=== PATIENT | male | born 1945 | race Caucasian/White ===

== ENCOUNTER 2020-08-21 09:36 | Outpatient (REF) | payer MEDICARE, SELFPAY ==
[2020-08-21 12:08] LABS: Prostate Specific Antigen 0.14 ng/mL (<0.05-4.0)
== END 2020-08-21 09:37 | disposition home or self-care (01) ==
LOC: HO.HMGCLDS 09:36
PROVIDERS: PCP Internal Medicine; Visit Provider Urology
DX: E29.1 Testicular hypofunction (principal); Z85.46 Personal history of malignant neoplasm of prostate; Z12.5 Encounter for screening for malignant neoplasm of prostate
CPT/HCPCS: 36415; 84153

== ENCOUNTER → 2020-08-28 10:27 | Outpatient (BNVA) | payer MEDICARE, SELFPAY | PROVIDERS: PCP Internal Medicine; Referring Provider Internal Medicine; Visit Provider Internal Medicine Endocrinology, Diabetes & Metabolism | DX: Z76.89 Persons encountering health services in other specified circumstances (principal) | CPT/HCPCS: Q3014 ==

== ENCOUNTER 2020-10-16 10:31 | Outpatient (REF) | payer MEDICARE, SELFPAY ==
[2020-10-16 13:55] LABS: MANUAL DIFF FLAG NO
[2020-10-16 13:59] LABS: Basophils Percent Auto 0.4 % (0-2); Eosinophils Absolute Auto 0.1 X10*3/uL (0.0-0.4); Eosinophils Percent Auto 2.7 % (0-4); Hematocrit 46.3 % (42-52); Hemoglobin 15.4 g/dl (14.0-18.0); Imm Gran Abs Auto 0.03 X10*3/uL (0.00-0.03); Imm Gran Pct Auto 0.6 % (0.0-0.4); Lymphocytes Percent Auto 19.8 % (20-40); Mean Corpuscular HGB Conc 33.3 g/dl (31.0-36.0); Mean Corpuscular Hemoglobin 29.6 pg (27.0-33.0); Mean Corpuscular Volume 88.9 fL (80-98); Mean Platelet Volume 10.1 fL (9.4-12.4); Monocytes Absolute Auto 0.5 X10*3/uL (0.1-1.2); Monocytes Percent Auto 8.8 % (2-11); Neutrophils Absolute Auto 3.5 X10*3/uL (2.0-8.3); Neutrophils Percent Auto 67.7 % (45-73); Platelet Count 194 X10*3/uL (160-400); Red Blood Count 5.21 X10*6/uL (4.60-5.80); Red Cell Distribution Width 12.6 % (11.0-16.0); White Blood Count 5.1 X10*3/uL (4.8-10.8)
[2020-10-16 14:25] LABS: Alanine Aminotransferase 35 U/L (0-40); Albumin Level 4.5 g/dL (3.5-5.0); Alkaline Phosphatase 56 U/L (39-117); Anion Gap 12 (12-20); Aspartate Amino Transferase 28 U/L (5-37); Blood Urea Nitrogen 14 mg/dL (9-16); Carbon Dioxide 25 mmol/L (22-29); Chloride 106 mmol/L (96-108); Cholesterol 186 mg/dL; Estimated Glomerular Filt Rate > 60; Glucose Fasting 103 mg/dL (60-99); HDL Cholesterol 44 mg/dL; LDL Cholesterol Calculated 125 mg/dl; Potassium 4.4 mmol/L (3.3-5.1); Sodium 139 mmol/L (135-145); Triglycerides 87 mg/dL
[2020-10-16 14:50] LABS: Vitamin D 25-OH Total 59.1 ng/mL (>30)
[2020-10-17 05:26] LABS: Sex Hormone Binding Globulin 23 nmol/L (22-77)
[2020-10-21 12:06] LABS: Testosterone, Free 102.9 pg/mL (30.0-135.0); Testosterone, Total 550 ng/dL (250-1100)
[2020-10-21 13:17] LABS: Testosterone-Albumin 4.4 g/dL (3.6-5.1); Testosterone-Bioavailable 183.4 ng/dL (15.0-150.0); Testosterone-Free 91.1 pg/mL (6.0-73.0); Testosterone-SHBG 22 nmol/L (22-77); Testosterone-Total 488 ng/dL (250-1100)
== END 2020-10-16 10:32 | disposition home or self-care (01) ==
LOC: HO.HMGCLDS 10:31
PROVIDERS: PCP Internal Medicine; Visit Provider Internal Medicine Endocrinology, Diabetes & Metabolism
DX: Z00.00 Encounter for general adult medical examination without abnormal findings (principal); E29.1 Testicular hypofunction; M81.0 Age-related osteoporosis without current pathological fracture
CPT/HCPCS: 36415; 80053; 80061; 82306; 84270; 84402; 84403; 84443; 85025

== ENCOUNTER 2020-10-17 10:42 | Outpatient (REF) | payer MEDICARE, SELFPAY ==
[2020-10-23 15:32] LABS: N-Telopeptide 26 (see note); NTXCreaRU 143 mg/dL (20-320)
== END 2020-10-17 10:43 | disposition home or self-care (01) ==
LOC: HO.HMGCLNP 10:42
PROVIDERS: Visit Provider Internal Medicine Endocrinology, Diabetes & Metabolism
DX: M81.0 Age-related osteoporosis without current pathological fracture (principal)
CPT/HCPCS: 82523

== ENCOUNTER → 2020-11-02 09:59 | Outpatient (BNVA) | payer MEDICARE, SELFPAY | PROVIDERS: PCP Internal Medicine; Visit Provider Urology | DX: Z13.89 Encounter for screening for other disorder (principal) | CPT/HCPCS: Q3014 ==

== ENCOUNTER → 2020-11-07 11:04 | Outpatient (BNVA) | payer MEDICARE, SELFPAY | PROVIDERS: PCP Internal Medicine; Visit Provider Internal Medicine | DX: I71.2 Thoracic aortic aneurysm, without rupture (principal); I10 Essential (primary) hypertension | CPT/HCPCS: 93005; 99212 ==

== ENCOUNTER → 2020-12-20 13:56 | Outpatient (REF) | payer MEDICARE, SELFPAY ==
--- NOTE | 2020-12-20 14:02 | CA_ITS ---
Transthoracic Echocardiogram Patient (Last, First, Middle): Ermias Birmingham J Gender: Male Date of : 1945 Age: 75 Procedure Date: 12/20/2020 Procedure Type: Transthoracic Echocardiogram Location: OP Height: 175.26 cm Weight: 88.91 kg BSA: 2.05 m2 Heart Rate: bpm BP: 134 / 78 mmHg [employer]: MAE Referring MD: Giancarlo Leigh MD Symptoms: I71.2 - Thoracic aortic aneurysm, without rupture Study Quality: Good ECG Rhythm: Sinus Conclusions: - The left ventricular systolic function is normal. The visually estimated ejection fraction is between 65-70%. - No obvious valvular pathology seen on this study. - There is mild dilatation of the ascending aorta measuring 4.10 cm. Findings Left Ventricle Normal left ventricular cavity size. There is mildly increased left ventricular wall thickness. The left ventricular systolic function is normal. The visually estimated ejection fraction is between 65-70%. There is no evidence of regional wall motion abnormalities. Evidence suggests grade I (mild) diastolic dysfunction. Right Ventricle Normal right ventricular cavity size and systolic function. Atria The left atrium is normal in size. The right atrium is normal in size. Aortic Valve There is a normal trileaflet aortic valve. There is no aortic valve stenosis. There is no aortic valve regurgitation. Mitral Valve The mitral valve appears normal. There is trace mitral valve regurgitation. There is no mitral valve stenosis. Pulmonic Valve The pulmonic valve was not well visualized. Tricuspid Valve Normal tricuspid valve structure. There is trace tricuspid valve regurgitation. The pulmonary artery systolic pressure is normal. Great Vessels There is mild dilatation of the ascending aorta measuring 4.10 cm. Arch measures 3.4cm. Venous The inferior vena cava is normal in size and collapses greater than 50% with inspiration. Pericardium/Pleural There is no evidence of pericardial effusion. Prior Study Comparison No significant change compared to prior study dated: 10/05/2019. Recommendations, Care & Conclusions No obvious valvular pathology seen on this study. Measurements 2D Linear Measurements IVSd: 1.11 0.6-0.9/0.6-1.0 cm LVIDd: 3.94 3.9-5.3/4.2-5.9 cm LVIDd Index: 1.92 2.4-3.2/2.2-3.1 cm/m2 LVIDs: 2.58 2.0-3.6 cm LVPWd: 1.07 0.7-1.1 cm Ao Root: 4.10 2.1-3.5 cm LA Diam: 3.60 2.7-3.8/3.0-4.0 cm LAIDs Index: 1.76 1.5-2.3 cm/m2 LV Mass: 174.78 67-162/88-224 g LV Mass Index: 85.26 43-95/49-115 g/m2 LVOT Diam: 2.30 3.0+(-)1.3 cm 2D Systolic Function EF 4C: 55.60 >55% EF 2C: 73.00 >55% EF BiP: 62.50 >55% Mitral Valve MV Pk E: 0.73 MV PK A: 0.88 MV Decel Time: 342.00 E/A: 0.80 E'Lateral: 7.93 E'Medial: 6.19 E/E' Med: 11.80 E/E' Lat: 9.20 PHT: 100.00 MVA PHT: 2.20 Decel [place]: 2.13 Aortic Valve AoV Pk Td: 1.71 AoV Mn Td: 1.12 AoV VTI: 0.29 AoV Pk Grad: 12.00 Aov Mn Grad: 6.00 ORALIA Cont.VTI: 4.05 LVOT LVOT Pk Td: 1.72 LVOT Mn Td: 1.02 LVOT VTI: 0.29 LVOT Pk Grad: 12.00 LVOT Mn Grad: 5.00 LVOT Diam: 2.30 LVOT Area: 4.15 Diastolic Function MV Pk E: 0.73 MV Pk A: 0.88 E/A: 0.80 E'Medial: 6.19 E/E' Med: 11.80 E' Laterial: 7.93 E/E' Lat: 9.20 Tricuspid Valve TR Pk Td: 1.79 TR Pk Grad: 13.00 RA Press: 3.00 RVSP: 16.00 Great Vessels Aorta Ao Root-2D: 4.10 2.0-3.7 cm Ao Asc: 4.10 2.1-3.4 cm Ao Arch: 3.40 Updated in Other Vendor System with Status of Final Giancarlo Leigh MD electronically signed on 12/22/2020 2:49:03 PM with status of Final
== END ==
LOC: HO.CARD 13:56
PROVIDERS: PCP Internal Medicine; Visit Provider Internal Medicine
DX: I71.2 Thoracic aortic aneurysm, without rupture (principal)
CPT/HCPCS: 93306

== ENCOUNTER → 2021-02-06 10:23 | Outpatient (BNVA) | payer MEDICARE, SELFPAY | PROVIDERS: PCP Internal Medicine; Referring Provider Internal Medicine; Visit Provider Internal Medicine | DX: I71.2 Thoracic aortic aneurysm, without rupture (principal); I10 Essential (primary) hypertension | CPT/HCPCS: 99212 ==

== ENCOUNTER 2021-02-26 11:32 | Outpatient (REF) | payer MEDICARE, SELFPAY ==
[2021-02-26 13:22] LABS: Hematocrit 43.3 % (42-52); Hemoglobin 14.2 g/dl (14.0-18.0)
[2021-02-26 14:14] LABS: Vitamin D 25-OH Total 41.9 ng/mL (>30)
[2021-02-28 07:57] LABS: Sex Hormone Binding Globulin 29 nmol/L (22-77)
[2021-03-03 16:21] LABS: Testosterone, Free 69.6 pg/mL (30.0-135.0); Testosterone, Total 483 ng/dL (250-1100)
[2021-03-04 14:11] LABS: Testosterone-Albumin 4.1 g/dL (3.6-5.1); Testosterone-Bioavailable 134.8 ng/dL (15.0-150.0); Testosterone-Free 71.6 pg/mL (6.0-73.0); Testosterone-SHBG 32 nmol/L (22-77); Testosterone-Total 502 ng/dL (250-1100)
== END 2021-02-26 11:33 | disposition home or self-care (01) ==
LOC: HO.LAB 11:32
PROVIDERS: PCP Physician Assistant; Visit Provider Internal Medicine Endocrinology, Diabetes & Metabolism
DX: M81.0 Age-related osteoporosis without current pathological fracture (principal); E29.1 Testicular hypofunction; Z79.899 Other long term (current) drug therapy
CPT/HCPCS: 36415; 82306; 84153; 84270; 84402; 84403; 85014; 85018; 99212

== ENCOUNTER 2021-04-26 08:37 | Outpatient (REF) | payer MEDICARE, SELFPAY ==
[2021-04-26 11:35] LABS: Hematocrit 42.8 % (42-52); Hemoglobin 14.3 g/dl (14.0-18.0); Mean Corpuscular HGB Conc 33.4 g/dl (31.0-36.0); Mean Corpuscular Hemoglobin 30.2 pg (27.0-33.0); Mean Corpuscular Volume 90.3 fL (80-98); Platelet Count 183 X10*3/uL (160-400); Red Blood Count 4.74 X10*6/uL (4.60-5.80); White Blood Count 4.1 X10*3/uL (4.8-10.8)
[2021-04-26 12:13] LABS: Prostate Specific Antigen 0.09 ng/mL (<0.05-4.0)
[2021-05-01 13:52] LABS: Testosterone, Total 357 ng/dL (250-1100)
== END 2021-04-26 08:38 | disposition home or self-care (01) ==
LOC: HO.HMGCLDS 08:37
PROVIDERS: PCP Internal Medicine; Visit Provider Urology
DX: Z12.5 Encounter for screening for malignant neoplasm of prostate (principal); R39.15 Urgency of urination; C61 Malignant neoplasm of prostate; E29.1 Testicular hypofunction
CPT/HCPCS: 36415; 84153; 84403; 85027

== ENCOUNTER → 2021-05-08 08:45 | Outpatient (BNVA) | payer MEDICARE, SELFPAY | PROVIDERS: PCP Internal Medicine; Visit Provider Urology | DX: N52.01 Erectile dysfunction due to arterial insufficiency (principal); E29.1 Testicular hypofunction; C61 Malignant neoplasm of prostate | CPT/HCPCS: Q3014 ==

== ENCOUNTER → 2021-07-24 10:43 | Outpatient (BNVA) | payer MEDICARE, SELFPAY | PROVIDERS: PCP Internal Medicine; Referring Provider Internal Medicine; Visit Provider Internal Medicine | DX: I71.2 Thoracic aortic aneurysm, without rupture (principal); I10 Essential (primary) hypertension | CPT/HCPCS: 99212 ==

== ENCOUNTER → 2021-08-07 09:58 | Outpatient (BNVA) | payer MEDICARE, SELFPAY | PROVIDERS: PCP Internal Medicine; Visit Provider Urology | DX: N52.35 Erectile dysfunction following radiation therapy (principal) | CPT/HCPCS: 99212 ==

== ENCOUNTER → 2021-09-06 10:52 | Outpatient (BNVA) | payer MEDICARE, SELFPAY | PROVIDERS: Visit Provider Urology | DX: N52.35 Erectile dysfunction following radiation therapy (principal); C61 Malignant neoplasm of prostate; E29.1 Testicular hypofunction | CPT/HCPCS: 99212 ==

== ENCOUNTER 2021-09-16 10:34 | Outpatient (REF) | payer MEDICARE, SELFPAY ==
--- NOTE | ~2021-09-16 | XR_ITS ---
EXAMINATION: XR CHEST XR THORACIC SPINE CLINICAL INFORMATION: Pain posterior chest and thoracic spine. COMPARISON: Chest radiographs 05/30/2016, 11/29/2015; CTA chest 09/08/2017 TECHNIQUE: The chest is imaged in frontal and lateral views. The thoracic spine is imaged in 2 frontal views, lateral view, and a lateral view of the cervical thoracic junction for a total of 4 views. FINDINGS: Thoracic spine: There are 12 rib-bearing thoracic vertebrae of normal attenuation. There is no bony destructive process, spondylolisthesis, or paraspinal soft tissue swelling. Some mild degenerative changes are again present mid thoracic spine. No erosive change. There is mild loss of height T8 slightly borderline increased since CT chest 09/08/2017. Chest: The lungs are clear. There is no pneumothorax, pleural reaction, infiltrate, or groundglass opacity. The costophrenic sulci are clear. The heart is normal in size. The hilar and mediastinal contours are stable. There is tortuous descending thoracic aorta are again seen. Remainder of the bony structures are unremarkable. XR/XR thoracic spine 2V IMPRESSION: Thoracic spine: -Loss of height vertebral body T8 borderline increased since CT chest 09/08/2017. -No destructive process or paraspinal soft tissue swelling. Chest: -No acute intrathoracic disease.
--- NOTE | ~2021-09-16 | XR_ITS ---
EXAMINATION: XR CHEST XR THORACIC SPINE CLINICAL INFORMATION: Pain posterior chest and thoracic spine. COMPARISON: Chest radiographs 05/30/2016, 11/29/2015; CTA chest 09/08/2017 TECHNIQUE: The chest is imaged in frontal and lateral views. The thoracic spine is imaged in 2 frontal views, lateral view, and a lateral view of the cervical thoracic junction for a total of 4 views. FINDINGS: Thoracic spine: There are 12 rib-bearing thoracic vertebrae of normal attenuation. There is no bony destructive process, spondylolisthesis, or paraspinal soft tissue swelling. Some mild degenerative changes are again present mid thoracic spine. No erosive change. There is mild loss of height T8 slightly borderline increased since CT chest 09/08/2017. Chest: The lungs are clear. There is no pneumothorax, pleural reaction, infiltrate, or groundglass opacity. The costophrenic sulci are clear. The heart is normal in size. The hilar and mediastinal contours are stable. There is tortuous descending thoracic aorta are again seen. Remainder of the bony structures are unremarkable. XR/XR chest 2V IMPRESSION: Thoracic spine: -Loss of height vertebral body T8 borderline increased since CT chest 09/08/2017. -No destructive process or paraspinal soft tissue swelling. Chest: -No acute intrathoracic disease.
== END 2021-09-16 10:35 | disposition home or self-care (01) ==
LOC: HO.XRAY 10:34
PROVIDERS: PCP Nurse Practitioner Family; Visit Provider Nurse Practitioner Family
DX: M54.6 Pain in thoracic spine (principal); R07.81 Pleurodynia
CPT/HCPCS: 71046; 72070

== ENCOUNTER 2021-09-27 10:58 | Outpatient (REF) | payer MEDICARE, SELFPAY ==
[2021-09-27 11:38] LABS: MANUAL DIFF FLAG NO
[2021-09-27 12:05] LABS: Basophils Percent Auto 0.3 % (0-2); Eosinophils Absolute Auto 0.1 X10*3/uL (0.0-0.4); Eosinophils Percent Auto 1.5 % (0-4); Hematocrit 45.1 % (42.0-52.0); Hemoglobin 14.9 g/dl (14.0-18.0); Imm Gran Abs Auto 0.03 X10*3/uL (0.00-0.03); Imm Gran Pct Auto 0.4 % (0.0-0.4); Lymphocytes Absolute Auto 1.1 X10*3/uL (1.2-4.9); Lymphocytes Percent Auto 14.9 % (20-40); Mean Corpuscular Hemoglobin 29.4 pg (27.0-33.0); Mean Corpuscular Volume 89.1 fL (80.0-98.0); Monocytes Absolute Auto 0.6 X10*3/uL (0.1-1.2); Monocytes Percent Auto 7.6 % (2-11); Neutrophils Absolute Auto 5.5 x10*3/uL (2.0-8.3); Neutrophils Percent Auto 75.3 % (45-73); Platelet Count 178 X10*3/uL (160-400); Red Blood Count 5.06 X10*6/uL (4.60-5.80); Red Cell Distribution Width 12.7 % (11.0-16.0); White Blood Count 7.3 X10*3/uL (4.8-10.8)
[2021-09-27 12:24] LABS: Estimated Average Glucose 120 mg/dL; Hemoglobin A1c % 5.8 %
[2021-09-27 12:36] LABS: Alanine Aminotransferase 26 U/L (0-40); Albumin Level 4.1 g/dL (3.5-5.0); Alkaline Phosphatase 62 U/L (39-117); Anion Gap 9 (12-20); Aspartate Amino Transferase 20 U/L (5-37); Bilirubin Total 0.9 mg/dL (0.0-1.0); Blood Urea Nitrogen 15 mg/dL (9-16); Calcium 9.4 mg/dL (8.4-10.2); Carbon Dioxide 26 mmol/L (22-29); Chloride 107 mmol/L (96-108); Cholesterol 183 mg/dL; Estimated Glomerular Filt Rate > 60; Glucose Fasting 103 mg/dL (60-99); HDL Cholesterol 50 mg/dL; LDL Cholesterol Calculated 118 mg/dl; Potassium 4.2 mmol/L (3.3-5.1); Sodium 138 mmol/L (135-145); Total Protein 6.6 g/dL (6.5-8.0); Triglycerides 78 mg/dL
[2021-09-27 12:58] LABS: Vitamin D 25-OH Total 58.3 ng/mL (>30)
[2021-10-02 17:45] LABS: N-Telopeptide 27 (see note); NTXCreaRU 172 mg/dL (20-320)
== END 2021-09-27 10:59 | disposition home or self-care (01) ==
LOC: HO.LAB 10:58
PROVIDERS: Internal Medicine; Internal Medicine Endocrinology, Diabetes & Metabolism; Absent Provider Urology; PCP Nurse Practitioner Family; Visit Provider Nurse Practitioner Family
DX: E29.1 Testicular hypofunction (principal); M81.0 Age-related osteoporosis without current pathological fracture; I10 Essential (primary) hypertension; E78.5 Hyperlipidemia, unspecified; E78.00 Pure hypercholesterolemia, unspecified; E11.9 Type 2 diabetes mellitus without complications
CPT/HCPCS: 36415; 80053; 80061; 82306; 82523; 83036; 85025

== ENCOUNTER 2021-12-27 09:22 | Outpatient (REF) | payer MEDICARE, SELFPAY ==
--- NOTE | ~2021-12-27 | US_ITS ---
EXAMINATION: US ABDOMEN COMPLETE CLINICAL INFORMATION: Unspecified abdominal pain. COMPARISON: MRI abdomen 11/04/2016. Ultrasound abdomen 05/30/2016. CT abdomen and pelvis 11/29/2015. Renal ultrasound 07/18/2013. TECHNIQUE: Real-time imaging of the abdominal viscera. FINDINGS: PANCREAS: Normal. ABDOMINAL AORTA: Atherosclerotic changes of the aorta which is nonaneurysmal. INFERIOR VENA CAVA: Visualized portions are normal. LIVER: The liver is normal in size. The liver contour is normal. There is diffuse increased liver parenchymal echogenicity, consistent with hepatic steatosis. No focal hepatic lesion. There is no intrahepatic biliary duct dilatation seen. GALLBLADDER: The gallbladder is physiologically distended without evidence of stones, sludge, wall thickening or pericholecystic fluid. COMMON BILE DUCT: Normal in caliber measuring 0.2 cm in diameter. RIGHT KIDNEY: There are 2 simple anechoic cysts, one at the the mid to upper pole measures 1.1 x 1.1 x 1.1 cm, the other is exophytic and measures 3.1 x 3 x 3 cm. No hydronephrosis or renal calculi. The kidney measures 13.2 cm in maximum dimension. LEFT KIDNEY: Normal. No hydronephrosis. No renal calculi or focal parenchymal lesions. The kidney measures 12.5 cm in maximum dimension. SPLEEN: Normal. The spleen measures 9.4 cm in maximum dimension. FREE FLUID: None. US/US abdomen complete IMPRESSION: Echogenic liver parenchyma compatible with steatosis. Simple right renal cysts.
== END 2021-12-27 09:23 | disposition home or self-care (01) ==
LOC: HO.HMGCX 09:22
PROVIDERS: Visit Provider Nurse Practitioner Family
DX: R10.9 Unspecified abdominal pain (principal); M54.6 Pain in thoracic spine
CPT/HCPCS: 76700

== ENCOUNTER → 2022-01-02 13:45 | Outpatient (BNVA) | payer MEDICARE, SELFPAY | PROVIDERS: PCP Nurse Practitioner Family; Visit Provider Internal Medicine Endocrinology, Diabetes & Metabolism | DX: E29.1 Testicular hypofunction (principal); M81.0 Age-related osteoporosis without current pathological fracture | CPT/HCPCS: 99212 ==

== ENCOUNTER 2022-01-03 11:40 | Day surgery (SDC) | payer MEDICARE, SELFPAY ==
[2021-12-30 14:00] VITALS: BMI 29.7
--- NOTE | 2022-01-01 13:07 | P.CONAN_ITS ---
Documented by User: Marline Garcia NP 01/01/22 13:11 HPI - Anesthesia Eval Consult details Narrative: 76yo M for Colonoscopy PMF Active Problems Active Problems: All Active Problems (Updated 12/31/21 @ 14:00 by JACKELYN SrP-C) Fatty liver (Acute) Low back pain with right-sided sciatica (Acute) Urinary urgency (Acute) Erectile dysfunction due to arterial insufficiency (Acute) Erectile dysfunction due to and not concurrent with radiation therapy (Acute) Encounter to establish care (Acute) Borderline glaucoma (Acute) Thoracic back pain (Acute) Rib pain (Acute) Abdominal pain (Acute) Generalized abdominal discomfort (Acute) Hyperlipidemia (Acute) Fracture, thoracic vertebra, compression (Acute) Lumbar degenerative disc disease (Acute) Essential hypertension (Acute) Ascending aortic aneurysm (Acute) Prostate CA (Acute) Annual physical exam (Acute) Normal colonoscopy (Acute) Hypogonadism male (Acute) Osteoporosis (Acute) Past Medical History Medical History Allergic rhinitis Annual physical exam Ascending aortic aneurysm BPH (benign prostatic hyperplasia) Essential hypertension Fracture, thoracic vertebra, compression Hearing problem HTN (hypertension) Hyperlipidemia Hypogonadism male Insomnia Lumbar degenerative disc disease Normal colonoscopy Osteoporosis Polycythemia Prostate CA Family History Family History Father Alzheimer disease Colon cancer Colon polyps Mother No problems noted. Other Mental health disorder Surgical History Surgical History History of colon resection History of esophagogastroduodenoscopy (EGD) History of repair of hiatal hernia Hx of appendectomy Hx of colonoscopy Hx of cystoscopy Hx of hernia repair Hx of nasal septoplasty Hx of transurethral resection of prostate Social History Social History Housing: House Alcohol intake: current Alcohol intake frequency: holidays/special occasions only Patient Tobacco Use Status: Former Tobacco user Quit Date: 30 years ago e-Cigarette/Vaping Use: Never Used Second Hand Smoke Exposure: No Are you DNR?: No Advance Directives: No Advance Directives Information Provided: No service: Yes Current occupational status: employed and retired Cognitive needs: No Hearing needs: No Vision needs: No Meds Allergies Allergy/AdvReac Type Severity Reaction Status Date / Time amoxicillin [From Augmentin] AdvReac Severe SEVERE Verified 01/02/22 13:54 DIARRHEA clavulanic acid AdvReac Severe SEVERE Verified 01/02/22 13:54 [From Augmentin] DIARRHEA erythromycin base AdvReac Intermediate GI UPSET Verified 01/02/22 13:54 [ERYTHROMYCIN BASE] Sulfa (Sulfonamide AdvReac Intermediate MOUTH Verified 01/02/22 13:54 Antibiotics) SORES, RASH Home Medications Medication Instructions Recorded Confirmed Last Taken Type multivitamin 1 tab PO DAILY 08/28/20 01/03/22 Unknown History simvastatin 20 mg tablet 20 mg PO BEDTIME 08/28/20 01/03/22 01/03/22 History 0000 zolpidem 5 mg tablet (Ambien) 10 mg PO BEDTIME PRN tab 08/28/20 01/03/22 Unknown History Exam Exam Date and Time: January 01, 2022 1307 Height,Weight and Vital Signs: Height 5 ft 9.25 in Weight 92.079 kg Pertinent Lab Results Pertinent Lab Results: Laboratory Tests 09/27/21 11:35 WBC 7.3 Hgb 14.9 Hct 45.1 Plt Count 178 Laboratory Tests 09/27/21 11:35 Sodium 138 Potassium 4.2 Chloride 107 Carbon Dioxide 26 BUN 15 Creatinine 0.74 Narrative Narrative: EKG 10/2020 sinus rhythm at 74/Min; no significant ST-T changes and otherwise unremarkable ECHO 12/2020 Conclusions: - The left ventricular systolic function is normal.? The visually estimated ejection fraction is between 65-70%. ? - No obvious valvular pathology seen on this study.? - There is mild dilatation of the ascending aorta measuring 4.10 cm.? Assessment and Plan Assessment Anesthesia Assessment: Chart Reviewed Documented by User: Kylie Mason MD 01/03/22 13:22 PMFSH Active Problems Active Problems: All Active Problems (Updated 12/31/21 @ 14:00 by CORNELIO Sr-C) Fatty liver (Acute) Low back pain with right-sided sciatica (Acute) Urinary urgency (Acute) Erectile dysfunction due to arterial insufficiency (Acute) Erectile dysfunction due to and not concurrent with radiation therapy (Acute) Encounter to establish care (Acute) Borderline glaucoma (Acute) Thoracic back pain (Acute) Rib pain (Acute) Abdominal pain (Acute) Generalized abdominal discomfort (Acute) Hyperlipidemia (Acute) Fracture, thoracic vertebra, compression (Acute) Lumbar degenerative disc disease (Acute) Essential hypertension (Acute) Ascending aortic aneurysm (Acute). Stable at 4.1cm at last cardiology visit. next visit in 6 months Prostate CA (Acute) Annual physical exam (Acute) Normal colonoscopy (Acute) Hypogonadism male (Acute) Osteoporosis (Acute) Past Medical History Medical History Allergic rhinitis Annual physical exam Ascending aortic aneurysm BPH (benign prostatic hyperplasia) Essential hypertension Fracture, thoracic vertebra, compression Hearing problem HTN (hypertension) Hyperlipidemia Hypogonadism male Insomnia Lumbar degenerative disc disease Normal colonoscopy Osteoporosis Polycythemia Prostate CA Family History Family History Father Alzheimer disease Colon cancer Colon polyps Mother No problems noted. Other Mental health disorder Family history of problems with anesthesia: No Surgical History Surgical History History of colon resection History of esophagogastroduodenoscopy (EGD) History of repair of hiatal hernia Hx of appendectomy Hx of colonoscopy Hx of cystoscopy Hx of hernia repair Hx of nasal septoplasty Hx of transurethral resection of prostate History of Problems with Anesthesia: No Social History Social History Housing: House Alcohol intake: current Alcohol intake frequency: holidays/special occasions only Patient Tobacco Use Status: Former Tobacco user Quit Date: 30 years ago e-Cigarette/Vaping Use: Never Used Second Hand Smoke Exposure: No Are you DNR?: No Advance Directives: No Advance Directives Information Provided: No service: Yes Current occupational status: employed and retired Cognitive needs: No Hearing needs: No Vision needs: No Meds Allergies Allergy/AdvReac Type Severity Reaction Status Date / Time amoxicillin [From Augmentin] AdvReac Severe SEVERE Verified 01/02/22 13:54 DIARRHEA clavulanic acid AdvReac Severe SEVERE Verified 01/02/22 13:54 [From Augmentin] DIARRHEA erythromycin base AdvReac Intermediate GI UPSET Verified 01/02/22 13:54 [ERYTHROMYCIN BASE] Sulfa (Sulfonamide AdvReac Intermediate MOUTH Verified 01/02/22 13:54 Antibiotics) SORES, RASH Home Medications Medication Instructions Recorded Confirmed Last Taken Type multivitamin 1 tab PO DAILY 08/28/20 01/03/22 Unknown History simvastatin 20 mg tablet 20 mg PO BEDTIME 08/28/20 01/03/22 01/03/22 History 0000 zolpidem 5 mg tablet (Ambien) 10 mg PO BEDTIME PRN tab 08/28/20 01/03/22 Unknown History Exam Height,Weight and Vital Signs: Height 5 ft 9.25 in Weight 92.079 kg Vital Signs Temp Pulse Resp BP Pulse Ox 01/03/22 12:37 97.8 F 68 18 151/85 H 95 Airway Mallampati Class: III TM Dist: >3cm Neck ROM: Full Loose/Missing/Broken Teeth: No Heart: RRR Lungs: CTAB Assessment and Plan Assessment Anesthesia Assessment: Anesthesia Plan Discussed Final Anesthetic Review Family History of Problems with Anesthesia: No History of Problems with Anesthesia: No NPO: Yes ASA Class: III Final Preanesthetic Review: No Changes in Pt Med Stat, Meds/Allgs Chart Revie thu, Consent Obtained/Reviewed and Anes Risks/Benef Reviewed Patient Risk: Intermediate Procedure Risk: Low Assessment/Block/Sedation in SS: Assess/Block/Sedation-SS Anesthetic Plan Anesthetic Plan: MAC: Disposition: Standard PACU
[2022-01-03 12:29] VITALS: BMI 29.0
[2022-01-03 12:37] VITALS: BP 151/85; PULSE 68; RESP 18; TEMP 36.6; O2SAT 95
[2022-01-03] MEDS: Lactated Ringers 1,000 ML 100 ML IVCONT (13:01)
[2022-01-03 14:53] VITALS: BP 90/57; PULSE 66; RESP 16; TEMP 37.3; O2SAT 96
--- NOTE | 2022-01-03 15:06 | PM.OP ---
Brief Operative Note Date of Service: 01/03/22 Pre-op diagnosis: Screening Post-op diagnosis: other (Diverticulosis) Procedure: Colonoscopy to the cecum Surgeon: Renato Joseph Anesthesia: MAC Was an Art History Professor used for this Procedure?: No Estimated blood loss (mL): 0 Pathology: none sent Condition: stable Disposition: PACU
[2022-01-03 15:16] VITALS: BP 129/72; PULSE 64; RESP 17; TEMP 36.2; O2SAT 95
--- NOTE | 2022-01-03 22:36 | OP_ITS ---
SURGEON: Renato Joseph MD INDICATIONS: The patient presents for evaluation of colorectal cancer screening and personal history of tubular adenomas of the colon. Full consent has been obtained from him for this, including risks of bleeding and perforation. PREOPERATIVE DIAGNOSIS: POSTOPERATIVE DIAGNOSIS: PROCEDURE PERFORMED: Colonoscopy to the cecum. ESTIMATED BLOOD LOSS: COMPLICATIONS: ANESTHESIA: Monitored anesthesia care. ASSISTANTS: SPECIMENS: PREOPERATIVE DIAGNOSES: Colorectal cancer screening, family history of colon cancer, and personal history of colon polyps. POSTOPERATIVE DIAGNOSES: Colorectal cancer screening, family history of colon cancer, and personal history of colon polyps, diverticulosis and internal hemorrhoids. DESCRIPTION OF PROCEDURE: The patient was placed in the left lateral decubitus position. The digital rectal exam revealed no abnormalities. The Olympus video pediatric colonoscope was entered into the rectum and advanced to the cecum with the assistance of abdominal wall pressure. Once in the cecum, I did identify normal-appearing cecal pouch with appendiceal orifice and a normal-appearing ileocecal valve. The entire cecum and ileocecal valve appeared normal. There was transillumination of light deep in the right lower quadrant. The scope was then slowly withdrawn assessing all mucosal surfaces carefully. Preparation was excellent. I did not visualize any sign of polyps, colitis, or angiodysplasia. There was a moderate amount of diverticulosis proximal to the anastomosis. The anastomosis at approximately 20 cm appeared normal. The scope was retroflexed in the rectum visualizing internal hemorrhoids, but no other pathology. The rectal mucosa appeared normal. The scope was straightened and withdrawn from the patient. He tolerated the procedure well and was returned to the recovery area in stable condition. IMPRESSION: 1. Diverticulosis. 2. Normal anastomosis. 3. Internal hemorrhoids. PLAN: Given the negative exam and his age, I do not feel he will need any further screening colonoscopies. He will see me on a p.r.n. basis. He was advised to use a fiber supplement and/or MiraLAX on a regular basis to help with his constipation. MD ALICIA Shetty/ARISL / [phone] MTDD
== END 2022-01-03 15:26 | disposition home or self-care (01) ==
PROVIDERS: PCP Nurse Practitioner Family; Visit Provider Internal Medicine
PROC: 0DJD8ZZ Inspection of Lower Intestinal Tract, Via Natural or Artificial Opening Endoscopic (ICD-10-PCS; CPT 45378; principal; 2022-01-03 13:00)
DX: Z12.11 Encounter for screening for malignant neoplasm of colon (principal); Z80.0 Family history of malignant neoplasm of digestive organs; Z86.010 Personal history of colon polyps; K57.30 Diverticulosis of large intestine without perforation or abscess without bleeding; K64.8 Other hemorrhoids; K59.00 Constipation, unspecified; N40.0 Benign prostatic hyperplasia without lower urinary tract symptoms; Z85.46 Personal history of malignant neoplasm of prostate; Z92.3 Personal history of irradiation; Z87.891 Personal history of nicotine dependence; I10 Essential (primary) hypertension; E78.5 Hyperlipidemia, unspecified; Z79.82 Long term (current) use of aspirin; Z79.899 Other long term (current) drug therapy; Z90.49 Acquired absence of other specified parts of digestive tract; Z98.0 Intestinal bypass and anastomosis status; Z87.442 Personal history of urinary calculi
CPT/HCPCS: G0105

== ENCOUNTER 2022-01-10 09:23 | Outpatient (REF) | payer MEDICARE, SELFPAY ==
--- NOTE | ~2022-01-10 | MM_ITS ---
EXAMINATION: BONE DENSITOMETRY CLINICAL INDICATION: Age-related osteoporosis without current pathological fracture. COMPARISON: Previous BD dated 09/27/2019 and baseline BD dated 09/22/2017. TECHNIQUE: Using a DocuTAP DXA System (software version: 13.1) manufactured by [employer], dual-energy x-ray absorptiometry was performed of the lumbar spine and left hip. The images are of good technical quality. Summary results are attached. FINDINGS: AP SPINE L1-L4: Current: BMD 1.209 g/cm2, Z-score 0.1, T-score -0.1, normal, 8.0% increase from previous, 12.6% decrease from baseline (<5% change is not significant). Prior: BMD 1.119 g/cm2. Baseline: BMD 1.074 g/cm2. LEFT FEMUR, NECK: Current: BMD 0.820 g/cm2, Z-score -0.8, T-score -1.9, osteopenia. Prior: BMD 0.737 g/cm2. Baseline: BMD 0.706 g/cm2. LEFT FEMUR, TOTAL: Current: BMD 0.913 g/cm2, Z-score -0.7, T-score -1.3, osteopenia, 0.1% decrease from previous, 4.5% increase from baseline (<5% change is not significant). Prior: BMD 0.914 g/cm2. Baseline: BMD 0.874 g/cm2. IDENTIFIED RISK FACTORS: Osteoporosis, family history (parental hip fracture), secondary osteoporosis, thiazide. HISTORY OF FRACTURE: None listed. MEDICATIONS: Calcium supplements or multivitamin, vitamin D, ERT/SERMS, bisphosphonates. MM/XR DEXA axial skeleton IMPRESSION: 1. DIAGNOSIS: Osteopenia based on the lowest T-score value of -1.9 in the femoral neck applying World Health Organization criteria. 2. 10-YEAR FRACTURE RISK PREDICTION, FRAX: Major osteoporotic fracture (clinical spine, forearm, hip or shoulder) 14.7%. Hip fracture 8.9%. 3. Treatment Recommendations: NOF guidelines recommend consideration for treatment in postmenopausal women and men age 50 and older presenting with the following: -A hip or vertebral (clinical or morphometric) fracture. -T-score less than or equal to -2.5 at the femoral neck or spine after appropriate evaluation to exclude secondary causes. -Low bone mass at the hip or spine and a 10-year fracture probability by FRAX of greater than or equal to 3% for hip fracture or greater than or equal to 20% for major osteoporotic fracture based on the [place] adapted WHO algorithm. 4. Other Recommendations: All treatment decisions require clinical judgment and consideration of individual patient factors, including patient preferences, comorbidities, previous drug use, risk factors not captured in the FRAX model (e.g. frailty, falls, vitamin D deficiency, increased bone turnover, interval significant decline in bone density) and possible under or overestimation of fracture risk by FRAX. Additional medical evaluation for secondary cause of low bone mineral density may be appropriate. FUTURE SCAN RECOMMENDATION: People with diagnosed cases of osteoporosis or at high risk for fracture should have regular bone mineral density tests. For patients eligible for Medicare, routine testing is allowed once every 2 years. The testing frequency can be increased to one year for patients who have rapidly progressing disease, those who are receiving or discontinuing medical therapy to restore bone mass, or have additional risk factors.
== END 2022-01-10 09:24 | disposition home or self-care (01) ==
LOC: HO.MAMMO 09:23
PROVIDERS: PCP Nurse Practitioner Family; Visit Provider Internal Medicine Endocrinology, Diabetes & Metabolism
DX: Z13.820 Encounter for screening for osteoporosis (principal); M81.0 Age-related osteoporosis without current pathological fracture; M85.80 Other specified disorders of bone density and structure, unspecified site; Z79.899 Other long term (current) drug therapy
CPT/HCPCS: 77080

== ENCOUNTER → 2022-01-24 09:17 | Outpatient (REF) | payer MEDICARE, SELFPAY ==
--- NOTE | 2022-01-24 09:19 | CA_ITS ---
Transthoracic Echocardiogram Patient (Last, First, Middle): Ermias Birmingham J Gender: Male Date of : 1945 Age: 76 Procedure Date: 01/24/2022 Procedure Type: Transthoracic Echocardiogram Location: OP Height: 175.26 cm Weight: 89.36 kg BSA: 2.05 m2 Heart Rate: bpm BP: 135 / 78 mmHg Mill Controller: TO Referring MD: Giancarlo Leigh MD Symptoms: I71.2 - Thoracic aortic aneurysm, without rupture Study Quality: Fair ECG Rhythm: Sinus Conclusions: - The left ventricular systolic function is normal. The calculated ejection fraction is 64% by biplane method. - No obvious valvular pathology seen on this study. - There is mild dilatation of the sinuses of Valsalva measuring 4.16 cm and mild dilatation of the ascending aorta measuring 4.00 cm. Findings Left Ventricle Normal left ventricular cavity size. There is mildly increased left ventricular wall thickness. The left ventricular systolic function is normal. The calculated ejection fraction is 64% by biplane method. There is no evidence of regional wall motion abnormalities. Diastolic function is normal for age. Right Ventricle Normal right ventricular cavity size and systolic function. Atria Both atria are normal in size. Aortic Valve There is a normal trileaflet aortic valve. There is no aortic valve stenosis. There is no aortic valve regurgitation. Mitral Valve The mitral valve appears normal. There is trace mitral valve regurgitation. There is no mitral valve stenosis. Pulmonic Valve The pulmonic valve is likely normal. Tricuspid Valve There is mild tricuspid valve regurgitation. The pulmonary artery systolic pressure is normal. Great Vessels The aortic arch is normal in size. There is mild dilatation of the sinuses of Valsalva measuring 4.16 cm and mild dilatation of the ascending aorta measuring 4.00 cm. Venous The inferior vena cava is normal in size and collapses greater than 50% with inspiration. Pericardium/Pleural There is no evidence of pericardial effusion. Prior Study Comparison No significant change compared to prior study dated: 12/20/2020. Recommendations, Care & Conclusions No obvious valvular pathology seen on this study. Measurements 2D Linear Measurements IVSd: 1.09 0.6-0.9/0.6-1.0 cm LVIDd: 4.58 3.9-5.3/4.2-5.9 cm LVIDd Index: 2.23 2.4-3.2/2.2-3.1 cm/m2 LVIDs: 3.30 2.0-3.6 cm LVPWd: 1.11 0.7-1.1 cm LA Diam: 3.80 2.7-3.8/3.0-4.0 cm LAIDs Index: 1.85 1.5-2.3 cm/m2 LV Mass: 224.22 67-162/88-224 g LV Mass Index: 109.37 43-95/49-115 g/m2 LVOT Diam: 2.30 3.0+(-)1.3 cm 2D Systolic Function EF 4C: 69.80 >55% EF 2C: 55.90 >55% EF BiP: 63.60 >55% Mitral Valve MV Pk E: 0.60 MV PK A: 0.71 MV Decel Time: 259.00 E/A: 0.80 E'Lateral: 7.29 E'Medial: 6.09 E/E' Med: 9.90 E/E' Lat: 8.30 PHT: 76.00 MVA PHT: 2.89 Decel Gulf: 2.33 Aortic Valve AoV Pk Td: 1.46 AoV Mn Td: 0.99 AoV VTI: 0.31 AoV Pk Grad: 9.00 Aov Mn Grad: 5.00 ORALIA Cont.VTI: 2.97 LVOT LVOT Pk Td: 0.92 LVOT Mn Td: 0.65 LVOT VTI: 0.22 LVOT Pk Grad: 3.00 LVOT Mn Grad: 2.00 LVOT Diam: 2.30 LVOT Area: 4.15 Diastolic Function MV Pk E: 0.60 MV Pk A: 0.71 E/A: 0.80 E'Medial: 6.09 E/E' Med: 9.90 E' Laterial: 7.29 E/E' Lat: 8.30 Right Ventricle TAPSE (mm): 24.00 TVS' Td: 14.80 Tricuspid Valve TR Pk Td: 2.43 TR Pk Grad: 24.00 RA Press: 3.00 RVSP: 27.00 Great Vessels Aorta Sinus of Valsalva: 4.16 2.0-3.[address] [place]: 3.39 1.7-3.4 cm Ao Asc: 4.00 2.1-3.4 cm Ao Arch: 3.00 Updated in Other Vendor System with Status of Final Giancarlo Leigh MD electronically signed on 01/25/2022 2:55:39 PM with status of Final
== END ==
LOC: HO.CARD 09:17
PROVIDERS: PCP Nurse Practitioner Family; Visit Provider Internal Medicine
DX: I71.2 Thoracic aortic aneurysm, without rupture (principal)
CPT/HCPCS: 93306

== ENCOUNTER → 2022-01-29 14:47 | Outpatient (BNVA) | payer MEDICARE, SELFPAY | PROVIDERS: PCP Nurse Practitioner Family; Referring Provider Nurse Practitioner Family; Visit Provider Internal Medicine | DX: I71.4 Abdominal aortic aneurysm, without rupture (principal); I10 Essential (primary) hypertension; Z79.899 Other long term (current) drug therapy | CPT/HCPCS: 93005; 99212 ==

== ENCOUNTER 2022-02-24 14:19 | Emergency (ER) | payer MEDICARE, SELFPAY ==
[2022-02-24 16:45] VITALS: BP 150/93; PULSE 80; RESP 16; TEMP 36.1; O2SAT 96; BMI 28.8
--- NOTE | 2022-02-24 17:40 | ED.WOUNDLAC ---
HPI - Wound/Laceration General Chief Complaint: Wound/Laceration Stated Complaint: lac left hand ? infection Time Seen by Provider: 02/24/22 17:33 Source: patient Mode of arrival: ambulatory Limitations: no limitations History of Present Illness HPI narrative: 76-year-old male presents to the ER for evaluation of delayed wound healing. He reports 2 weeks ago he sustained a laceration to the distal aspect of his left middle finger with a sharp knife. He went to an urgent care but they were no longer taking patients at the time so he never got seen. He reports the wound was gaping and he taped shut. Over the last 2 weeks the wound is fully healed and closed self. His sister is a nurse and was concerned about possible infection so she referred him to the emergency room for evaluation. The patient denies any redness, swelling, drainage of purulent material, fever, chills, numbness, tingling. He is able to fully extend and bend the digit. He is not diabetic. Onset (ago): week(s) Extremity Location: left: hand (4th finger) Place: home Patient tetanus UTD: Yes Context: accidental Associated symptoms: none Treatments prior to arrival: bandage Related Data Home Medications Medication Instructions Recorded Confirmed multivitamin 1 tab PO DAILY 08/28/20 01/29/22 simvastatin 20 mg tablet 20 mg PO BEDTIME 08/28/20 01/29/22 zolpidem 5 mg tablet (Ambien) 10 mg PO BEDTIME PRN rash 08/28/20 01/29/22 labetalol 200 mg tablet 100 mg PO BID 01/29/22 01/29/22 Previous Rx's Medication Instructions Recorded dicyclomine 10 mg capsule 10 mg PO TID #90 caps 09/28/20 calcium citrate 500 mg PO BID 30 days #120 tabs 02/26/21 cholecalciferol (vitamin D3) 50 2,000 unit PO DAILY 30 days #30 02/26/21 mcg (2,000 unit) capsule caps tadalafil 10 mg tablet 10 mg PO DAILY sexual activity 90 05/08/21 days #90 tabs testosterone 4 mg/24 hr 1 patch transdermal DAILY 30 days 05/08/21 transdermal 24 hour patch #30 ea vitamin E (dl, acetate) 450 mg 450 mg PO DAILY 90 days #90 caps 05/08/21 (1,000 unit) capsule alprostadil 40 mcg intracavernosal 2.5 mcg intra-cavernosal 3XW PRN 09/11/21 kit (Edex) erectile dysfunction 30 days #4 ea alprostadil 1,000 mcg 1,000 mcg intra-urethral .COMPLEX 10/30/21 intra-urethral suppository ([place]) PRN erectile dysfunction 4 weeks #6 ea alendronate 70 mg tablet 70 mg PO QWEEK 30 days #5 tabs 12/09/21 lidocaine 5 % topical patch 1 patch transdermal DAILY #30 ea 12/11/21 lisinopril 2.5 mg tablet 7.5 mg PO DAILY 90 days #270 tabs 12/13/21 Allergies Allergy/AdvReac Type Severity Reaction Status Date / Time amoxicillin [From Augmentin] AdvReac Severe SEVERE Verified 01/29/22 15:00 DIARRHEA clavulanic acid AdvReac Severe SEVERE Verified 01/29/22 15:00 [From Augmentin] DIARRHEA erythromycin base AdvReac Intermediate GI UPSET Verified 01/29/22 15:00 [ERYTHROMYCIN BASE] Sulfa (Sulfonamide AdvReac Intermediate MOUTH Verified 01/29/22 15:00 Antibiotics) SORES, RASH Review of Systems Review of Systems: Constitutional: No Fever, No Chills Cardiovascular: No Chest Pain, No SOB Gastrointestinal: No Nausea, No Vomiting, No abdominal Pain Musculoskeletal: No joint pain, No Myalgias Skin: + Skin Lesions, No rash, No redness Neuro: No Weakness, No Numbness, No Dizziness, No Headache Psych: + Anxiety/Panic Heme/Lymph: No Bruising, No Lymphadenopathy PMFSH Past Medical History Medical History Allergic rhinitis Annual physical exam Ascending aortic aneurysm BPH (benign prostatic hyperplasia) Essential hypertension Fracture, thoracic vertebra, compression Hearing problem HTN (hypertension) Hyperlipidemia Hypogonadism male Insomnia Lumbar degenerative disc disease Normal colonoscopy Osteoporosis Polycythemia Prostate CA Surgical History History of colon resection History of esophagogastroduodenoscopy (EGD) History of repair of hiatal hernia Hx of appendectomy Hx of colonoscopy Hx of cystoscopy Hx of hernia repair Hx of nasal septoplasty Hx of transurethral resection of prostate Family History Family History Father Alzheimer disease Colon cancer Colon polyps Mother No problems noted. Other Mental health disorder Social History Social History Housing: House Alcohol intake: current Alcohol intake frequency: holidays/special occasions only Patient Tobacco Use Status: Former Tobacco user Quit Date: 30 years ago e-Cigarette/Vaping Use: Never Used Second Hand Smoke Exposure: No Advance Directives: No Advance Directives Information Provided: No service: Yes Current occupational status: employed and retired Cognitive needs: No Hearing needs: No Vision needs: No Physical Exam Vital Signs: Vital Signs: Last Vital Signs Temp 97.0 F 02/24/22 16:45 Pulse 80 02/24/22 16:45 Resp 16 02/24/22 16:45 BP 150/93 H 02/24/22 16:45 Pulse Ox 96 02/24/22 16:45 O2 Del Method 02/24/22 16:45 BMI result Body Mass Index 28.8 Appearance: Alert. Oriented X3. No acute distress. HEENT: normal inspection CVS: Normal heart rate and rhythm. Pulses normal. Respiratory: No respiratory distress. Skin: Skin warm and dry. Normal skin color. Normal skin turgor. No rashes. Extremities: Medial aspect of the left distal middle finger with a 2 cm well-healing wound with scabbing and scar tissue, no erythema, warmth, tenderness. Normal range of motion of the digit. The cap refill less than 3 seconds. No numbness or tingling. Neuro: Oriented X 3. No motor deficit. No sensory deficit. Course Course Course Narrative: 76-year-old male presents to the ER for evaluation of delayed wound healing of a finger laceration 2 weeks old. At this time there is no evidence of acute infection. There is some scar tissue and scabbing of the wound but it appears to be healing appropriately given its initial depth and complexity that was not closed appropriately. Patient was counseled on appropriate wound care and signs and symptoms of infection that should prompt urgent re-evaluation if they were to develop. Patient has been counseled and is stable for discharge home. Discharge Plan Discharge Clinical Impression: Delayed healing of traumatic wound Patient Disposition: Home, Self-Care Instructions: Chronic Wounds (ED) Additional Instructions: Your wound is slowly healing. There is delay in complete healing because it was not closed at the time of injury There are no signs of infection at this time. Recommend topical neosporin or bacitracin 1x per day, keep clean and allow open to air for several hours per day. If you develop new or worsening symptoms call 911 or come back to the ER for further evaluation. Prescriptions: No Action Edex 40 mcg kit 2.5 mcg intra-cavernosal 3XW PRN (Reason: erectile dysfunction) 30 Days Qty: 4 6RF [place] 1,000 mcg suppository 1,000 mcg intra-urethral .COMPLEX PRN (Reason: erectile dysfunction) 28 Days Qty: 6 5RF Rx Instructions: 1,000 mcg intra-urethral as needed once per week PRN alendronate 70 mg tablet 70 mg PO QWEEK 30 Days Qty: 5 6RF lisinopril 2.5 mg tablet 7.5 mg PO DAILY 90 Days Qty: 270 1RF dicyclomine 10 mg capsule 10 mg PO TID Qty: 90 1RF lidocaine 5 % adhesive patch,medicated 1 patch transdermal DAILY Qty: 30 0RF Rx Instructions: leave on most painful area for up to 12 hrs simvastatin 20 mg tablet 20 mg PO BEDTIME zolpidem [Ambien] 5 mg tablet 10 mg PO BEDTIME PRN (Reason: rash) multivitamin Tablet 1 tab PO DAILY calcium citrate 250 mg calcium tablet 500 mg PO BID 30 Days Qty: 120 6RF cholecalciferol (vitamin D3) 50 mcg (2,000 unit) capsule 2,000 unit PO DAILY 30 Days Qty: 30 6RF testosterone 4 mg/24 hr patch 24 hour 1 patch transdermal DAILY 30 Days Qty: 30 5RF vitamin E (dl, acetate) 450 mg (1,000 unit) capsule 450 mg PO DAILY 90 Days Qty: 90 1RF tadalafil 10 mg tablet 10 mg PO DAILY 90 Days Qty: 90 0RF labetalol 200 mg tablet 100 mg PO BID
== END 2022-02-24 18:37 | disposition home or self-care (01) ==
PROVIDERS: Emergency Provider Internal Medicine; PCP Nurse Practitioner Family
DX: Z48.00 Encounter for change or removal of nonsurgical wound dressing (principal)
CPT/HCPCS: 99282

== ENCOUNTER 2022-02-27 08:45 | Outpatient (REF) | payer MEDICARE, SELFPAY ==
[2022-02-27 11:25] LABS: Hematocrit 43.2 % (42.0-52.0); Hemoglobin 14.4 g/dl (14.0-18.0); Mean Corpuscular HGB Conc 33.3 g/dl (31.0-36.0); Mean Corpuscular Hemoglobin 29.8 pg (27.0-33.0); Mean Corpuscular Volume 89.3 fL (80.0-98.0); Platelet Count 204 X10*3/uL (160-400); Red Blood Count 4.84 X10*6/uL (4.60-5.80); Red Cell Distribution Width 12.5 % (11.0-16.0); White Blood Count 4.4 X10*3/uL (4.8-10.8)
[2022-02-27 11:45] LABS: Alanine Aminotransferase 25 U/L (0-40); Albumin Level 4.2 g/dL (3.5-5.0); Alkaline Phosphatase 59 U/L (39-117); Anion Gap 13 (12-20); Aspartate Amino Transferase 20 U/L (5-37); Bilirubin Total 0.8 mg/dL (0.0-1.0); Blood Urea Nitrogen 19 mg/dL (9-16); Calcium 8.8 mg/dL (8.4-10.2); Carbon Dioxide 23 mmol/L (22-29); Chloride 107 mmol/L (96-108); Cholesterol 154 mg/dL; Estimated Glomerular Filt Rate > 60; Glucose Fasting 105 mg/dL (60-99); HDL Cholesterol 40 mg/dL; LDL Cholesterol Calculated 99 mg/dl; Potassium 4.3 mmol/L (3.3-5.1); Sodium 139 mmol/L (135-145); Total Protein 6.5 g/dL (6.5-8.0); Triglycerides 75 mg/dL
[2022-02-27 11:51] LABS: PSA,Total (Free>4and<10) 0.07 ng/mL (0.00-4.00); Prostate Specific Antigen Scr 0.08 ng/mL (<0.05-4.0)
[2022-02-27 12:10] LABS: Prostate Specific Antigen 0.08 ng/mL (<0.05-4.0)
[2022-03-04 19:42] LABS: Testosterone, Free 78.1 pg/mL (30.0-135.0); Testosterone, Total 479 ng/dL (250-1100)
== END 2022-02-27 08:46 | disposition home or self-care (01) ==
LOC: HO.HMGCLDS 08:45
PROVIDERS: Absent Provider Internal Medicine Endocrinology, Diabetes & Metabolism; PCP Nurse Practitioner Family; Referring Provider Urology; Visit Provider Nurse Practitioner Family
DX: C61 Malignant neoplasm of prostate (principal); N40.1 Benign prostatic hyperplasia with lower urinary tract symptoms; N13.8 Other obstructive and reflux uropathy; E29.1 Testicular hypofunction; E78.5 Hyperlipidemia, unspecified; E78.00 Pure hypercholesterolemia, unspecified
CPT/HCPCS: 36415; 80053; 80061; 84153; 84402; 84403; 85027

== ENCOUNTER → 2022-03-12 11:28 | Outpatient (BNVA) | payer MEDICARE, SELFPAY | PROVIDERS: PCP Nurse Practitioner Family; Visit Provider Urology | DX: C61 Malignant neoplasm of prostate (principal); N52.35 Erectile dysfunction following radiation therapy; E29.1 Testicular hypofunction; N20.0 Calculus of kidney | CPT/HCPCS: 99212 ==

== ENCOUNTER 2022-05-27 14:46 | Emergency (ER) | payer MEDICARE, SELFPAY ==
--- NOTE | ~2022-05-27 | XR_ITS ---
EXAMINATION: XR CHEST CLINICAL INFORMATION: High blood pressure COMPARISON: Previous chest x-ray most recent August 2021 TECHNIQUE: Frontal view of the chest was obtained. FINDINGS: The cardiac silhouette does not appear enlarged. The thoracic aorta is tortuous. Hilar and mediastinal contours are otherwise unremarkable. The lungs are clear. There is no pleural effusion or pneumothorax. There are degenerative changes of the spine. XR/XR chest 1V IMPRESSION: No evidence for acute disease in the chest.
--- NOTE | ~2022-05-27 | CT_ITS ---
EXAMINATION: CT ABDOMEN AND PELVIS WITHOUT CONTRAST CLINICAL INFORMATION: Left upper quadrant and back pain COMPARISON: Previous CT of the abdomen and pelvis 2015, abdominal ultrasound most recent October 2021 and MRI of the abdomen October 2016 TECHNIQUE: Multidetector volumetric imaging was performed from the superior aspect of the liver through the pubic symphysis. Sagittal and coronal reformatted images were obtained on the technologist's workstation. This CT examination was performed using dose optimization techniques as appropriate, variously including the following: *Automated exposure control *Adjustment of mA and/or kV according to patient size (this includes techniques or standardized protocols for targeted exams where dose is matched to indication/reason for exam; i.e. extremities or head) *Use of iterative reconstruction technique DLP: 694 mGy-cm FINDINGS: LUNG BASES: 3 mm calcified right middle lobe nodule suggestive of a calcified granuloma. The lung bases are otherwise clear. LIVER, GALLBLADDER, AND BILIARY TREE: There is a small 5 mm low-attenuation lesion high in the dome of the right lobe of the liver similar to prior exams probably representing a small cyst. No other focal liver lesion. Normal liver size and attenuation and contour. Normal gallbladder. No biliary duct dilatation. PANCREAS: Unremarkable. SPLEEN: Unremarkable. ADRENAL GLANDS: Unremarkable. KIDNEYS AND URETERS: Small nonobstructing stones in the upper pole of the left kidney. 2 cm right renal cyst. No imaging follow-up. BLADDER: Unremarkable. GASTROINTESTINAL TRACT: Diverticulosis of the colon. No evidence of diverticulitis. Small and large bowel is otherwise normal. Appendix not seen. No inflammatory changes in the right lower quadrant. ABDOMINAL WALL: Evidence of previous ventral hernia repair with mesh. LYMPH NODES: No enlarged lymph nodes. No ascites. VASCULAR: Atherosclerotic disease. PELVIC VISCERA: Radiation seeds in the prostate gland. OSSEOUS STRUCTURES: There are degenerative changes of the spine. CT/CT abdomen pelvis wo IV con IMPRESSION: Small nonobstructing left renal stones. Diverticulosis of the colon. No evidence of diverticulitis. Right renal and probable small liver cysts. Fleischner guidelines were followed.
--- NOTE | ~2022-05-27 | CT_ITS ---
EXAMINATION: CT THORACIC SPINE WITHOUT CONTRAST CLINICAL INFORMATION: Pain over T6. COMPARISON: Thoracic spine radiographs dated 09/16/2021. TECHNIQUE: Multiple axial images of the thoracic spine were obtained without administration of intravenous contrast. Coronal and sagittal reformatted images were obtained. This CT examination was performed using dose optimization techniques as appropriate, variously including the following: *Automated exposure control *Adjustment of mA and/or kV according to patient size (this includes techniques or standardized protocols for targeted exams where dose is matched to indication/reason for exam; i.e. extremities or head) *Use of iterative reconstruction technique DLP: 1366 mGy-cm FINDINGS: There is generalized osteopenia. There is normal thoracic kyphosis and spinal alignment. Mild to moderate multilevel degenerative disc disease is seen most pronounced from T10-T11 to T12-L1. Mild compression deformity of the anterior aspect of the superior plate of T9 without acute features. The vertebral bodies are intact. The neural foramina are patent. The facet joints are unremarkable. The spinous processes are intact. The soft tissues are unremarkable. The thyroid gland is unremarkable. The thoracic aorta shows mild atherosclerosis. The visualized lungs are clear. The visualized upper abdomen is unremarkable. CT/CT thoracic spine wo IV con IMPRESSION: 1. Generalized osteopenia and mild to moderate multilevel degenerative changes. Mild anterior superior plate compression deformity of T9 does not demonstrate acute features. No significant abnormality at T6. If pain persists or worsens, further evaluation with MRI is recommended.
[2022-05-27 15:21] VITALS: BP 159/107; PULSE 82; RESP 16; TEMP 36.7; O2SAT 96; BMI 29.2
--- OUTSIDE RECORDS SUMMARY | 2022-05-27 20:44 | XMS_ITS ---
:1945 Author Organization [facility] Address [address] [place] [address] Care Team Providers Name Role Phone Renato Joseph Unavailable Unavailable PROBLEMS Type Condition ICD9-CM [id number] Onset Condition SNOMED Cod e Code Code Dates Status Problem Irritable bowel K58.9 Active 1074 3008 syndrome without diarrhea Problem Family history of Z80.0 Active 31 8803463 colon cancer Problem Diverticulosis of K57.30 Active 73 2624248 colon Problem History of colon Z86.010 Active polyps Problem History of Z86.010 Active 500308581 adenomatous polyp of colon Problem Change in bowel R19.4 Active 8811 1009 function Problem Preprocedural Z01.818 Active 956126 [id number] examination Problem Encounter for Z12.11 Active 307621 004 screening for malignant neoplasm of colon ALLERGIES Substance Reaction Event Type Date Status Erythromycin Unknown Drug Allergy Nov, Active Sulfa MOUTH SORES/RASH Drug Allergy Nov, Active Augmentin Unknown Drug Allergy Nov, Active Bactrim Unknown Drug Allergy Nov, Active ENCOUNTERS Encounter Location Date Diagnosis [address] Jan, [facility] [address] [place] [address] [facility] [place] [address] [place] [address] December, History of colo n polyps [place], [place] [id number] Z86.010 ; Diverticulosis of colon K57.30 and Internal hemorrhoid K64.[address] Nov, History of adenomatous [facility] [address] [place] polyp of c olon Z86.010 ; [address] Preprocedural ex amination Z01.818 ; Family history of colon cancer Z80 .0 and Encounter for az reening for malignant neopla sm of colon Z12.[address] [place] [address] Aug, [facility] [address] [place] [address] [place] [address] Feb, [facility] [address] [place] [address] [facility] [place] [facility] Feb, [place] [id number] [place] [address] December, Abdomina l pain, left upper [facility] [address] [place] quadrant R 10.12 and [address] Irritable bowel syndrome without diarrhea K58.[address] [place] [address] Oct, [facility] [address] [place] [address] [facility] [place] [address] [facility] Mar, [place] [phone] [place] [address] December, Change i n bowel function [facility] [address] [place] R19.4 ; [place] [address] adenomatous poly p of colon Z86.010 ; Family history of colon cancer Z80 .0 and Irritable bowel syndrome without diarrhea K58.[address] [place] [address] Jul, [facility] [address] [place] [address] [place] [address] Jul, Abdomina l pain, LLQ 789.04 [facility] [address] [place] and Divert iculosis of colon [address] 562.[address] [place] [address] Jun, [facility] [address] [place] [address] IMMUNIZATIONS No Known Immunizations SOCIAL HISTORY Never Assessed REASON FOR REFERRAL FUNCTIONAL STATUS PLAN OF CARE Activity Details Future/Pending Procedure COLONOSCOPY 20211203 Future/Pending Procedure UPPER GI ENDOSCOPY 20161217 Future/Pending Procedure COLONOSCOPY 20160108 VITAL SIGNS Weight 203 lbs 2021-12-03 Weight 205 lbs 2016-12-17 Weight 195 lbs 2016-01-08 Weight 198 lbs 2013-07-28 Height 69.25 in 2021-12-03 Height 69.25 in 2016-12-17 Height 69.25 in 2016-01-08 Height 69.25 in 2013-07-28 BMI 29.76 kg/m2 2021-12-03 BMI 30.05 kg/m2 2016-12-17 BMI 28.59 kg/m2 2016-01-08 BMI 29.03 kg/m2 2013-07-28 Heart Rate 84 /min 2016-12-17 Heart Rate 84 /min 2013-07-28 Temperature 96.8 degrees Fahrenheit 2021-12-03 Blood pressure systolic 00 mm Hg 2021-12-03 Blood pressure diastolic 00 mm Hg 2021-12-03 MEDICATIONS Medication Instructions Dosage Frequency Start End Duration Statu s Date Date Zolpidem Active Tartrate Edex Active Testosterone Active Vitamin D3 Active Simvastatin 20 Orally Once a 1 tablet in 24h Active MG day the evening Multivitamin Active Dicyclomine HCl Orally Four 1-2 December, day(s) Ac tive 10 MG times a day prn capsules 2015 abdominal bloating/discomf ort/cramps Calcium Citrate Active Labetalol HCl Orally Twice a 1 tablet 12h Ac tive 200 MG day Vitamin E Active Lisinopril 5 MG Orally Once a 1 ANS HALF 24h Active day tablet Alendronate 28 Active Sodium 70 MG PROCEDURES Procedure Date Ordered Result Body Site BP SCR NOT PRFRM REC REASON NOS December 03, 2021 TOBACCO NON-USER December 03, 2021 DOC MEDS VERIFIED W/PT OR RE December 03, 2021 COLORECTAL CA SCREEN DOC REV December 03, 2021 COLOREC CANCR SCR; COLNSCPY HI RISK January 03, 2022 RESULTS Name Result Date Reference Range GI BIOPSY 2017-03-05 G.I. BIOPSY REASON FOR VISIT screening, hx polyps, fam hx colon ca, Patient presents today for a colon screening, Patient presents today for a recall colon, covid , abdominal pain, lesion on liver, Patient presents today for Liverlesions, liver lesion, missed appt today . rescheduled for 01/15, patient presents today for liver lesion, Family hx colon ca,screening, hx of polyps, Abdominal pain, EARLY SATIETY, CONSIDER EGD, PUT ON COLON RECALL FOR 05/2017, wants sooner appointment Insurance Providers [facility] Member Patient Patient Patient Patient Patient Subscriber Subscriber Subscriber Group Insurance Plan Plan Plan Plan ID Relationship Address Phone Name Date of ID Name Date of No Type Insurance Insurance Insurance Coverage to Subscriber Address Phone Name Dates [facility] [phone] [facility] [place] [id number] [facility] [address] [facility] [address] [place] [facility] [place] [address]
--- OUTSIDE RECORDS SUMMARY | 2022-05-27 20:44 | XMS_ITS | Encounter Summary ---
:1945 Author Organization Department of [facility] rs Address [address] [place] [id number] Support Name Relationship Address Phone MAURA COELHO Unavailable [address] [place] [address] MAURA COELHO Unavailable [address] [place] [address] GISELLE COELHO Unavailable [address] [facility] [place] [address] Insurance Providers: All historical and current Section Date Range: From patient's date of to the date document was created.This section includes the names of all active insurance providers for the patient. Insurance Type of Plan Start of End of Group Member Insurance Policy P atient's Provider Coverage Name Policy Policy Number ID Provider's Hare's Relationship Coverage Coverage Telephone Name to Policy Number Hare HEALTH NEW MEDICARE MCR Apr 17, [id number] [phone] Lauren SEVILLA PATIENT [facility] 2012 [id number] [facility] ([facility] HEALTH NEW MEDICARE MCR Apr 17, [id number] [phone] Lauren SEVILLA PATIENT [facility] ([facility]) 2012 9 [phone] [facility] ([facility] Selected Encounter This section includes the information on record at MD for the Encounter. Date/Time Encounter Type Encounter Description Reason Provider Source Apr 29, 2022 09:33 Outpatient Encounter OPTOMETRY AM [facility] Encounter Template Text not used by [facility] Plan of Treatment: Future Appointments (+ 6 months) and Future Tests (+/- 45 days) The Plan of Treatment section includes future care activities for the patient from all [facility] treatmentfacilities. This section includes future appointments and future orders which are active, pending orscheduled.Future Appointments This section includes appointments that were scheduled to occur 6 months from the date of the Encounter, up to a maximum of 20 appointments. The data comes from all [facility]. Appointment Date/Time Appointment Type Appointment Facili ty Name May 08, 2022 03:00 PM [facility] Jul 09, 2022 11:15 AM [facility] Jul 21, 2022 01:00 PM AMBULATORY MEDICINE [facility] Active, Pending, and Scheduled Orders This section includes a listing of several types of active, pending, and scheduled orders, including clinic medications orders, diagnostic test orders, procedure orders and consult orders; where the start date of the order is 45 days before the date of the Encounter or 45 days after the date of the Encounter. The data comes from all [facility]. Test Date/Time Test Type Test Details Facility Name May 08, 2022 03:51 PM Consult Order COMMUNITY CARE-UROLOGY [facility] Cons Case Fin[facility]'s Choice [facility] Lab Results: +/- 30 days of the encounter This section includes the Chemistry and Hematology Lab Results on record with MD for the patient. Radiology Reports and Pathology Reports are provided separately, in subsequent sections.Lab Results This section contains the Chemistry/Hematology Results that were resulted 30 days before or 30 daysafter the date of the Encounter. Date/Time Source Result Type Result - Unit Interpretation Reference Range Comment Apr 29, 2022 [facility] CBC AND DIFF Specimen Type: BLOOD 09:26 AM [facility] (AUTO) No comment enter ed. Ordering Provid er: APOORVA MORENO Report Released Date/Time: Nov 07, 2021 03:26 PM Reporting Lab: [facility] [address] [facility] [address] Performing Lab: [facility] [address] [address] WBC 4.37 L 4.50-11.00 RBC 4.62 4.23-5.66 HGB 13.6 12.8-17 HCT 40.4 39.2-50.4 MCV 87.4 82-99 MCHC 33.7 30.8-35.1 PLT 186 140-360 RDW-CV 12.5 12.0-16.0 Osborne, Abs 0.43 0.30-1.10 MCH 29.4 26.2-32.6 Neut % 63.6 Lymph % 23.1 Osborne % 9.8 Eos % 2.5 Baso % 0.5 Neut, Abs 2.78 2.20-7.60 Lymph, Abs 1.01 1.00-3.20 Eos, Abs 0.11 0.03-0.44 Baso, Abs 0.02 0.01-0.13 Immature Gran % 0.5 Immature Gran, Abs 0.02 0.00-0.06 Apr 29, 2022 [facility] TESTOSTERONE, TOTAL Specimen Ty pe: SERUM 09:26 AM [place] [facility] No comment enter ed. Ordering Provid er: APOORVA MORENO Report Released Date/Time: Oct 30, 2021 11:07 AM Reporting Lab: [facility] [place] [facility] [address] [facility] [address] Performing Lab: [facility] [address] [address] TESTOSTERONE, TOTAL 192.87 L 220.00-892 .00 Apr 29, 2022 09:26 AM [facility] [place] PSA Specimen Type: SERUM [facility] No comment enter ed. Ordering Provid er: APOORVA MORENO Report Released Date/Time: Oct 30, 2021 11:07 AM Reporting Lab: [facility] [place] [facility] [address] [facility] [facility] [address] Performing Lab: [facility] [place] [facility] [address] [facility] [address] PSA 0.11 0.00-4.00 Apr 29, 2022 [facility] LIPID PANEL Specimen Type: SERUM 09:26 AM [facility] FASTING No comment enter ed. Ordering Provid er: APOORVA MORENO Report Released Date/Time: Oct 30, 2021 11:07 AM Reporting Lab: [facility] [place] [facility] [address] [facility] [facility] [address] Performing Lab: [facility] [place] [facility] [address] [facility] [address] CHOLESTEROL 156 <7-199 TRIGLYCERIDE 87 0-150 LDL calculated 96 0-129 CHOL/HDL 3.6 HDL CHOLESTEROL 43 40-60 Apr 29, 2022 09:26 [facility] LIVER FUNCTION Specimen Typ e: SERUM AM [place] [facility] No comment enter ed. Ordering Provid er: APOORVA MORENO Report Released Date/Time: Oct 30, 2021 11:07 AM Reporting Lab: [facility] [address] [facility] [address] Performing Lab: [facility] [address] [facility] [address] PROTEIN,TOTAL 6.2 6.0-8.3 ALBUMIN 3.7 3.5-5.0 ALKALINE PHOSPHATASE 53 40-150 AST 34 5-34 ALT 27 <6-55 BILIRUBIN, TOTAL 0.6 0.2-1.2 Apr 29, 2022 [facility] BASIC METABOLIC Specimen Type: SERUM 09:26 AM [place] [facility] PANEL (fasting) No comment enter ed. Ordering Provid er: APOORVA MORENO Report Released Date/Time: Oct 30, 2021 11:07 AM Reporting Lab: [facility] [address] [facility] [address] Performing Lab: [facility] [address] [facility] [address] UREA NITROGEN 16 7-25 GLUCOSE 107 H 65-100 SODIUM 139 135-145 POTASSIUM 4.4 3.5-5.0 CHLORIDE 108 100-110 CO2 22 20-30 CREATININE, Serum 0.74 0.50-1.40 eGFR(CKD-EPI 2020) >90 >60 Social History: Smoking Status (Most current) and Tobacco Use (All prior to encounter date) This section includes the most current, and the historical, smoking and tobacco-related health factors from the MD facility where the Encounter took place.Current Smoking Status This section includes the most current smoking, or tobacco-related health factor, from the MD facility where the Encounter took place. Date/Time Current Smoking Status Comment Facility Jul 31, 2021 09:41 AM VA-TOBACCO FORMER USER [facility] [place] [facility] Tobacco Use History This section includes a history of the smoking, or tobacco- related health factors, that were collected on or before the date of the Encounter. The data comes from the MD facility where the Encounter took place. Date/Time Smoking Status/Tobacco Comment Facility Use Jul 31, 2021 09:41 VA-TOBACCO QUIT 15 YRS OR [facility] AM MORE [place] [facility] Jun 29, 2020 11:00 VA-TOBACCO FORMER USER [facility] AM [place] [facility] Jun 29, 2020 11:00 VA-TOBACCO QUIT 15 YRS OR [facility] AM MORE [place] [facility] Feb 10, 2019 10:14 VA-TOBACCO FORMER USER [facility] AM [place] [facility] Feb 10, 2019 10:14 VA-TOBACCO QUIT 15 YRS OR [facility] AM MORE [place] [facility] Nov 27, 2017 11:12 QUIT TOBACCO USE > 7 [facility] AM YEARS AGO [place] [facility] Nov 05, 2016 11:01 QUIT TOBACCO USE > 7 [facility] AM YEARS AGO [place] [facility] Sep 17, 2015 01:03 QUIT TOBACCO USE > 7 [facility] PM YEARS AGO stopped 20 [facility] Feb 24, 2005 10:09 HISTORY OF SMOKING [facility] AM [place] [facility] May 28, 2004 08:08 QUIT TOBACCO USE > 7 [facility] AM YEARS AGO [place] [facility] Nov 27, 2003 01:12 HISTORY OF SMOKING [facility] PM [place] [facility] Mar 15, 2003 02:03 QUIT TOBACCO USE 1-7 [facility] PM YEARS AGO [place] [facility] Aug 24, 2002 11:07 HISTORY OF SMOKING [facility] AM [place] [facility] Feb 11, 2002 11:35 QUIT TOBACCO USE 1-7 [facility] AM YEARS AGO [place] [facility] May 21, 2001 01:11 HISTORY OF SMOKING [facility] PM quit 5 years [facility] Encounter Notes: All associated encounter notes This section contains the clinical notes associated to the Encounter. Date/Time Encounter Note(s) Provider Source Apr 29, 2022 09:33 AM OPTOMETRY TELEPHONE ENCOUNTER NOTE: SAVAGE MIRELES MD [facility] LOCAL TITLE: OPTOMETRY TELEPHONE NOTE [facility] TITLE: OPTOMETRY TELEPHONE ENCOUNTER NO TE DATE OF NOTE: APR 29, 2022@09:33 ENTRY DATE: APR 29, 2022@09:33:35 AUTHOR: SAVAGE HINES EXP COSIGNER: URGENCY: STATUS: COMPLETED [place] stopped by [facility] front office assistant requesting a refill on Latanoprost eye drops. Mail to home address that has been confir med. /rajesh/ SAVAGE HINES [employer] NURSE Signed: 04/29/2022 09:34 Receipt Acknowledged By: * AWAITING SIGNATURE * PURNIMA ESTRADA
--- OUTSIDE RECORDS SUMMARY | 2022-05-27 20:44 | XMS_ITS | Continuity of Care Document ---
:1945 Author Organization [facility] Care Team Providers Name Role Phone DOD-AR Unavailable Unavailable Problems Combined list of problems from Department of Defense and Veterans Affairs facilities. It does not include entries that were removed or entered in error. 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 Jules Hooks Comment: No HCS polyps or inflammatory mucosal changes Jun 14, 2012 Entered By: RADHA MORENO Comment: Minimal scattered diverticulosis throughout the entire colon Jun 14, 2012 Entered By: RADHA MORENO Comment: FU in 10 years if asymptomatic - 2021 Allergic Active Condition [facility] rhinitis * [facility] (ICD-9-CM 477.9) [facility] Benign essential Active Condition [facility] hypertension [facility] (SNOMED CT [place] TS [id number]) HCS Bloating Active Condition [place] (ICD-9-CM 787.3) VAM C CALCULUS OF Active Condition [facility] KIDNEY [facility] [place] [facility] Cancer of Active Condition [facility] prostate [facility] [place] [facility] Chronic Active Condition Dec 03, 2009 [facility] C [facility] sinusitis Entered By: WSTREfren (ICD-9-CM 473.9) ROCKY MORENO Comment: HCS septoplasty 05/25 DR Ramirez. Now on IT same start date. Deviated nasal Active Condition [place] septum (ICD-9-CM HCS 470.) DIAPHRAGMATIC Active Condition [facility] HERNIA [facility] [place] [facility] Diverticulitis, Active Condition Dec 03 0 [facility] Colonic * Entered By: WSTREfren (ICD-9-CM RADHA MORENO 562.11) Jules Hooks Comment: [facility] Colectomy @ [facility] about 2004. Aug 22, 2010 Entered By: RADHA MORENO Comment: His father had colon cancer. former smoker Active Condition [facility] [place] [facility] GERD * (ICD-9-CM Active Condition [facility] 530.81) [facility] [place] [facility] Hearing loss * Active Condition [facility] TRL (ICD-9-CM 389.9) WST RN [place] [facility] Herpes Genitalis Active Condition Feb 11 [facility] Entered By: PAIGE LLANOS [facility] Comment: h/o HCS genital herpes -- no recurrence in several years (active Feb 11, 2002 Entered By: PAIGE CAMACHO Comment: from 1979 - 1984) Hyperlipidemia * Active Condition [facility] (ICD-9-CM 272.4) [facility] [place] [facility] Hypertrophy Active Condition Aug 26, 2012 [facility] (Benign) of Entered By: GLEN Prostate without ROCKY MORENO Comment: HCS obstruction TURP 10/2101 Dr Stephens at [facility]. Hypogonadism Active Condition [facility] [place] [facility] Impaired FASTING Active Condition [facility] Glucose [facility] (ICD-9-CM [place] 790.21) HCS Insomnia * Active Condition [facility] (ICD-9-CM [facility] 780.52) [place] [facility] Sciatica Active Condition [facility] [place] [facility] Tinnitus * Active Condition [facility] (ICD-9-CM [facility] 388.30) [place] [facility] TINNITUS NOS Active Condition [place] [facility] H. Pylori Inactive Condition 07/11/2013 [facility] therapy 1997 [facility] [place] [facility] Hiatal Hernia Inactive Condition 01/13/2012 January 13, 2012 [facility] Entered By: RADHA MARIE Comment: lap HCS surgery about 2005 was curative. Diagnosis: Active Diagnosis [facility] ICD-10-CM D07.5 WSTR N Carcinoma in [place] situ of HCS prostatewith Provider Comments: Cancer of prostate ([facility] [id number]) Diagnosis: Active Diagnosis [facility] ICD-10-CM [facility] H40.1221 [place] Low-tension HCS glaucoma, left eye, mild stagewith Provider Comments: Low-Tension Glaucoma,Mild,Le ft Eye Diagnosis: Active Diagnosis [facility] ICD-10-CM Z71.89 WST RN Other specified [place] counselingwith HCS Provider Comments: Other specified counseling Medications Combined list of outpatient medications from Department of Defense and Veterans Affairs facilities. Medications provided include 1) outpatient medications from the last 15 months, and 2) patient-reported medications. Medication Details Route Status Patient Prescription Prescription Last Ordering Order Source Instructions Expires Number Dispense Provider Date Date ACYCLOVIR TAKE ONE ORAL ACTIVE 11/08/2022 [id number] VANWAG NER [facility] 800MG TAB TABLET 2021 CNTRL BY MOUTH F WSTRN THREE [place] TIMES A SETS DAY FOR HCS TWO DAYS EACH OCCURREN CE ALPROSTADIL INSERT 1 INTRAU ACTIVE 10/31/2022 [id number] BE RRYSUSI 1000MCG SUPPOSIT RETHRA 2 2021 IELD SUPP,URETHR ORMichael Cota MD AL INTRAURE THRAL ONCE A WEEK NEEDED FOR ERECTILE DYSFUNCT ION ALPROSTADIL INJECT ACTIVE 09/12/2022 [id number] Samaria ALBERTO 40MCG/CARTR 2.5 MCG 2 JACQUELINE M 2021 IEL D IDGE INTO THE MD INJ,SYSTEM PENIS THREE TIMES A WEEK FOR ERECTILE DYSFUNCT ION ALPROSTADIL INJECT 09/06/2021 [id number] SUSI ALBERTO 40MCG/CARTR 2.5MCG 2 JACQUELINE2021 IELD IDGE INTO THE MD INJ,SYSTEM PENIS THREE TIMES A WEEK FOR ERECTILE DYSFUNCT ION AMLODIPINE TAKE ONE ORAL ACTIVE 05/09/2023 [id number] VANWAG NER VA BESYLATE TABLET 2021 CNTRL 2.5MG TAB BY MOUTH F WSTRN ONCE [place] DAILY SETS FOR HCS BLOOD PRESSURE /HEART, DO NOT TAKE WITH GRAPEFRU IT JUICE ASPIRIN TAKE ONE ORAL ACTIVE JOSH [facility] 81MG TAB,EC TABLET 2013 CNTR L BY MOUTH F WSTRN DAILY [place] HCS ATORVASTATI TAKE ORAL ACTIVE 05/09/2023 [id number] VANWAGNE R VA N CA 40MG ONE-HALF ,2021 CNTR L TAB TABLET F WSTRN BY MOUTH [place] ONCE SETS DAILY HCS FOR CHOLESTE ROL REPLACES SIMVASTA TIN. HYDROCHLORO TAKE ONE ORAL ACTIVE 11/08/2022 [id number] V ANWAGNER 11/09/ VA THIAZIDE TABLET 2021 CNTRL 25MG TAB BY MOUTH F WSTRN EVERY [place] MORNING SETS TO HCS PREVENT FLUID/CO NTROL BLOOD PRESSURE HYDROCHLORO TAKE ONE ORAL DISCONT 11/09/2021 [id number] VANWAGNER 12/14/ VA THIAZIDE TABLET INUED ,2020 CNTRL 25MG TAB BY MOUTH F WSTRN EVERY [place] MORNING SETS TO HCS PREVENT FLUID/CO NTROL BLOOD PRESSURE LABETALOL TAKE ONE ORAL ACTIVE VANWAGNER A HCL 100MG TABLET ,2016 CNTRL TAB BY MOUTH F WSTRN TWICE [place] DAILY SETS HCS LATANOPROST INSTILL LEFT ACTIVE 05/01/2023 [id number] BORAS KI,A 04/30/ [facility] 0.005% 1 DROP EYE 2 NDREW E 2021 CNTRL SOLN,OPH INTO THE WSTRN LEFT EYE [place] AT SETS BEDTIME HCS TO REDUCE PRESSURE IN THE EYE LATANOPROST INSTILL LEFT DISCONT 01/03/2022 [id number] B ORASKI,A 01/02/ VA 0.005% 1 DROP EYE INUED 2 NDREW E 2020 CNTRL SOLN,OPH INTO THE WSTRN LEFT EYE [place] AT SETS BEDTIME HCS TO REDUCE PRESSURE IN THE EYE SIMVASTATIN TAKE ORAL DISCONT 11/08/2022 [id number] VANWAG NER 12/12/ VA 40MG TAB ONE-HALF INUED ,2021 CNTRL TABLET F WSTRN BY MOUTH [place] AT SETS BEDTIME HCS SIMVASTATIN TAKE ORAL DISCONT 11/09/2021 [id number] VANWAG NER 12/01/ VA 40MG TAB ONE-HALF INUED 2 ,2020 CNTRL TABLET F WSTRN BY MOUTH [place] AT SETS BEDTIME HCS TADALAFIL TAKE ONE ORAL ACTIVE 11/08/2022 [id number] VANWAG NER VA 20MG TAB TABLET 2 ,2021 CNTRL BY MOUTH F WSTRN [place] NEEDED SETS FOR E.D. HCS (TAKE DIRECTED ) TADALAFIL TAKE ONE ORAL DISCONT 01/25/2022 [id number] VANWA GNER VA 20MG TAB TABLET INUED 2 ,2020 CNTRL BY MOUTH F WSTRN [place] NEEDED SETS FOR E.D. HCS (TAKE DIRECTED ) TESTOSTERON APPLY 1 TOPICA ACTIVE 11/08/2022 [id number] VA NWAGNER VA E 4MG/24HRS PATCH TO L 2 ,2021 CN TRL PATCH SKIN AT PATCH F WSTRN BEDTIME [place] DIRECTED HCS BY PRESCRIB ER TESTOSTERON APPLY 1 TOPICA DISCONT 05/10/2022 [id number] V ANWAGNER 11/08/ VA E 4MG/24HRS PATCH TO L INUED 2 ,2021 CN TRL PATCH SKIN AT PATCH F WSTRN BEDTIME [place] DIRECTED HCS BY PRESCRIB ER TESTOSTERON APPLY 1 TOPICA DISCONT 11/19/2021 [id number] V ANWAGNER 05/20/ VA E 4MG/24HRS PATCH TO L INUED 2 ,2020 CN TRL PATCH SKIN AT PATCH F WSTRN BEDTIME [place] DIRECTED HCS BY PRESCRIB ER TESTOSTERON APPLY 1 TOPICA DISCONT 04/30/2021 [id number] V ANWAGNER 11/12/ VA E 4MG/24HRS PATCH TO L INUE 1 ,2020 CN TRL PATCH SKIN AT PATCH F WSTRN BEDTIME [place] DIRECTED HCS BY PRESCRIB ER VITAMIN E TAKE ORAL ACTIVE 05/09/2023 [id number] VANWAGNER VA 90MG (200 FIVE 2 ,APOORVA 2022 CNTRL UNIT) CAP CAPSULES F WSTRN BY MOUTH [place] ONCE SETS DAILY HCS VITAMIN E TAKE ORAL DISCONT 05/09/2022 [id number] ALBERTO,SUSI springF 90MG (200 FIVE INUED 1 JACQUELINE Vicente 2020 IELD UNIT) CAP CAPSULES MD BY MOUTH ONCE DAILY ZOLPIDEM TAKE ONE ORAL ACTIVE 11/08/2022 [id number] VANWAGN ER 05/12/ VA TARTRATE TABLET 2 ,2021 CNTRL 10MG TAB BY MOUTH F [place]STR[place] AT [place] BEDTIME SETS HCS NEEDED FOR SLEEP ZOLPIDEM TAKE ONE ORAL DISCONT 05/10/2022 [id number] VANWAG NER 11/15/ VA TARTRATE TABLET INUED 2 ,2021 CNTRL 10MG TAB BY MOUTH F [place]STR[place] AT [place] BEDTIME SETS HCS NEEDED FOR SLEEP ZOLPIDEM TAKE ONE ORAL DISCONT 11/19/2021 [id number] VANWAG NER 05/29/ VA TARTRATE TABLET INUED 2 ,2020 CNTRL 10MG TAB BY MOUTH F WSTR[place] AT [place] BEDTIME SETS HCS NEEDED FOR SLEEP ZOLPIDEM TAKE ONE ORAL DISCONT 05/11/2021 [id number] VANWAG NER 11/12/ VA TARTRATE TABLET INUE 1 ,2020 CNTRL 10MG TAB BY MOUTH F WSTR[place] AT [place] BEDTIME SETS HCS NEEDED FOR SLEEP Allergies, Adverse Reactions, Alerts Combined list of allergies from Department of Defense and Veterans Affairs facilities. It does not include entries that were removed or entered in error. Substance Category Reaction Severity Reaction Status Date Comments S ource type Reported AUGMENTIN Propensity Abdominal Propensity active [facility] to adverse pain to adverse 1 WS TRN reactions reactions [place] to drug to drug ETS HCS (finding) (finding) SULFONAMIDE/ Propensity HIVES Propensity active [facility] RELATED to adverse to adverse 8 WS TRN ANTIMICROBIA reactions reactions [place] to drug to drug ETS HCS (finding) (finding) Immunizations Combined list of available immunizations from the Department of Defense and Veterans Affairs facilities. 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 COVID-19 3 complet [place] LGREE (MODERNA), 2020 ed NS MRNA, LNP-S, H EALTHC PF, 100 ARE MCG/0.5ML CLIN ICS DOSE OR 50 MCG/0.25ML DOSE COVID-19 2 complet VA (MODERNA), 2020 ed CNT RL MRNA, LNP-S, W STRN PF, 100 [place] MCG/0.5 ML SET S DOSE HCS COVID-19 1 complet VA (MODERNA), 2020 ed CNT RL MRNA, LNP-S, W STRN PF, 100 [place] MCG/0.5 ML SET S DOSE HCS INFLUENZA, complet VA INJECTABLE, 2019 ed CN TRL QUADRIVALENT, WSTRN PRESERVATIVE M [place] FREE SETS HCS INFLUENZA, complet Site: VA INJECTABLE, 2018 ed Left CN TRL QUADRIVALENT, Deltoi d WSTRN PRESERVATIVE [place] [facility] SET[place] HCS ZOSTER 2 complet VA RECOMBINANT 2019 ed CN TRL W[facility] [place] HCS INFLUENZA, complet Site: VA INJECTABLE, 2018 ed Left CN TRL QUADRIVALENT Deltoid WSTRN [place] HCS ZOSTER 1 complet VA RECOMBINANT 2019 ed CN TRL [facility] [place] HCS FLU,3 YRS complet Site: V A (HISTORICAL) 2016 ed Left C NTRL Deltoid W[facility] [place] HCS PNEUMOCOCCAL complet VA CONJUGATE PCV 2016 ed CNTRL 13 WSTRN [place] HCS ZOSTER complet Proximal V A (SHINGLES) 2016 ed Left Arm CNTRL (HISTORICAL) W STRN [place] HCS FLU,3 YRS complet Site: V A (HISTORICAL) 2015 ed Left C NTRL Deltoid W[facility] [place] HCS TD(ADULT) complet [employer] [facility] VA UNSPECIFIED 2014 ed ED. CN TRL FORMULATION Probably WSTRN TD. after [place] SET[place] dogbite. [facility] Our 2010 TDaP here shoulder suffice for life. FLU,3 YRS complet Site: V A (HISTORICAL) 2013 ed Left C NTRL Deltoid [facility] [place] [facility]CS PNEUMOCOCCAL complet VA POLYSACCHARID 2013 ed CNTRL E PPV23 [facility] [place] [facility] FLU,3 YRS complet Site: V A (HISTORICAL) 2012 ed Left C NTRL Deltoid [facility] [place] [facility] FLU,3 YRS complet Site: V A (HISTORICAL) 2012 ed Left C NTRL Deltoid [facility] [place] [facility] FLU,3 YRS complet C ONNECT (HISTORICAL) 2012 ed I CUT HCS DTAP, complet Site: [facility] UNSPECIFIED 2010 ed Left CN TRL FORMULATION Deltoid [facility]N [place] HCS Results Combined list of recent chemistry, hematology and other laboratory results from Department of Defense and Veterans Affairs, ranging from 15 months to all on record, depending upon the facility. Order Results Value Reference Date Interpretation Specimen Commen ts Source Name Range CBC AND LEUKOCYTES 4.37 4.50 - 04/29 L Specimen Type : BLOOD [facility] DIFF [#/VOLUME] 11. No comment en tered. WSTRN (AUTO) IN BLOOD BY Ordering Pr ovider: APOORVA MORENO [place] AUTOMATED Report Releas ed Date/Time: Nov 07, 2021 03:26 PM TS HCS COUNT Reporting Lab: [facility] [place] [facility] [address] [facility] [facility] [address] Performing Lab: [facility] [place] [facility] [address] [facility] [facility] [address] CBC AND ERYTHROCYTE 4.62 4.23 - 04/29 Specimen Typ e: BLOOD [facility] DIFF S 5.66 No comment enter ed. WSTRN (AUTO) [#/VOLUME] Ordering Pro vider: APOORVA MORENO [place] IN BLOOD BY Report Rele ased Date/Time: Nov 07, 2021 03:26 PM TS HCS AUTOMATED Reporting Lab : [facility] [place] [facility] COUNT [address] [facility] [facility] [address] Performing Lab: [facility] [place] [facility] [address] [facility] [facility] [address] CBC AND HEMOGLOBIN 13.6 12.8 - 17 09/13 Specimen Ty pe: BLOOD [facility] DIFF [MASS/VOLUM /2021 No comment e ntered. WSTRN (AUTO) E] IN BLOOD Ordering Pr ovider: APOORVA MORENO Report Released Date/Time: Nov 07, 2021 03:26 PM TS HCS Reporting Lab: [facility] [place] [facility] [address] [facility] [facility] [address] Performing Lab: [facility] [place] [facility] [address] [facility] [facility] [address] CBC AND HEMATOCRIT 40.4 39.2 - 04/29 Specimen Type : BLOOD [facility] DIFF [VOLUME 50.4 No comment enter ed. WSTRN (AUTO) FRACTION] Ordering Prov ider: APOORVA MORENO OF BLOOD BY Report Rele ased Date/Time: Nov 07, 2021 03:26 PM TS HCS AUTOMATED Reporting Lab : [facility] [place] [facility] COUNT [address] [facility] [address] Performing Lab: [facility] [place] [facility] [address] [facility] [address] CBC AND MCV 87.4 82 - 99 04/29 Specimen Type: B LOOD [facility] DIFF [ENTITIC No comment ente red. WSTRN (AUTO) VOLUME] BY Ordering Pro vider: APOORVA MORENO AUTOMATED Report Releas ed Date/Time: Nov 07, 2021 03:26 PM TS HCS COUNT Reporting Lab: [facility] [place] [facility] [address] [facility] [address] Performing Lab: [facility] [place] [facility] [address] [facility] [facility] [address] CBC AND MCHC 33.7 30.8 - 04/29 Specimen Type: B LOOD [facility] DIFF [MASS/VOLUM 35.1 No comment e ntered. WSTRN (AUTO) E] BY Ordering Provid er: APOORVA MORENO AUTOMATED Report Releas ed Date/Time: Nov 07, 2021 03:26 PM TS HCS COUNT Reporting Lab: [facility] [place] [facility] [address] [facility] [facility] [address] Performing Lab: [facility] [place] [facility] [address] [facility] [address] CBC AND PLATELETS 186 140 - 360 04/29 Specimen Typ e: BLOOD [facility] DIFF [#/VOLUME] /2021 No comment en tered. WSTRN (AUTO) IN BLOOD BY Ordering Pr ovider: APOORVA MORENO AUTOMATED Report Releas ed Date/Time: Nov 07, 2021 03:26 PM TS HCS COUNT Reporting Lab: [facility] [place] [facility] [address] [facility] [address] Performing Lab: [facility] [place] [facility] [address] [facility] [address] CBC AND ERYTHROCYTE 12.5 12.0 - 04/29 Specimen Typ e: BLOOD [facility] DIFF DISTRIBUTIO 16.0 No comment e ntered. WSTRN (AUTO) N WIDTH Ordering Provid er: APOORVA MORENO [RATIO] BY Report Relea sed Date/Time: Nov 07, 2021 03:26 PM TS HCS AUTOMATED Reporting Lab : [facility] [place] [facility] COUNT [address] [facility] [address] [address] Performing Lab: [facility] [place] [facility] [address] [facility] [address] CBC AND MONOCYTES 0.43 0.30 - 04/29 Specimen Type: BLOOD [facility] DIFF [#/VOLUME] 1.10 No comment en tered. WSTRN (AUTO) IN BLOOD BY Ordering Pr ovider: APOORVA MORENO AUTOMATED Report Releas ed Date/Time: Nov 07, 2021 03:26 PM TS HCS COUNT Reporting Lab: [facility] [place] [facility] [address] [facility] [facility] [address] Performing Lab: [facility] [place] [facility] [address] [facility] [address] CBC AND MCH 29.4 26.2 - 04/29 Specimen Type: B LOOD [facility] DIFF [ENTITIC 32.6 No comment ente red. WSTRN (AUTO) MASS] BY Ordering Provi kassandra: VANWAGNER,APOORVA F [place] AUTOMATED Report Releas ed Date/Time: Nov 07, 2021 03:26 PM TS HCS COUNT Reporting Lab: [facility] [place] [facility] [address] [facility] [facility] [address] Performing Lab: [facility] [place] [facility] [address] [facility] [address] CBC AND NEUTROPHILS 63.6 09 Specimen Typ e: BLOOD [facility] DIFF / No comment enter ed. WSTRN (AUTO) LEUKOCYTES Ordering Pro vider: APOORVA MORENO [place] IN BLOOD BY Report Rele ased Date/Time: Nov 07, 2021 03:26 PM TS HCS AUTOMATED Reporting Lab : [facility] [place] [facility] COUNT [address] [facility] [facility] [address] Performing Lab: [facility] [place] [facility] [address] [facility] [facility] [address] CBC AND LYMPHOCYTES 23.1 09 Specimen Typ e: BLOOD [facility] DIFF No comment enter ed. WSTRN (AUTO) LEUKOCYTES Ordering Pro vider: APOORVA MORENO [place] IN BLOOD BY Report Rele ased Date/Time: Nov 07, 2021 03:26 PM TS HCS AUTOMATED Reporting Lab : [facility] [place] [facility] COUNT [address] [facility] [facility] [address] Performing Lab: [facility] [place] [facility] [address] [facility] [address] CBC AND MONOCYTES/1 9.8 09 Specimen Typ e: BLOOD [facility] DIFF No comment enter ed. WSTRN (AUTO) LEUKOCYTES Ordering Pro vider: APOORVA MORENO [place] IN BLOOD BY Report Rele ased Date/Time: Nov 07, 2021 03:26 PM TS HCS AUTOMATED Reporting Lab : [facility] [place] [facility] COUNT [address] [facility] [address] Performing Lab: [facility] [place] [facility] [address] [facility] [facility] [address] CBC AND EOSINOPHILS 2.5 09 Specimen Typ e: BLOOD [facility] DIFF No comment enter ed. WSTRN (AUTO) LEUKOCYTES Ordering Pro vider: APOORVA MORENO [place] IN BLOOD BY Report Rele ased Date/Time: Nov 07, 2021 03:26 PM TS HCS AUTOMATED Reporting Lab : [facility] [place] [facility] COUNT [address] [facility] [facility] [address] Performing Lab: [facility] [place] [facility] [address] [facility] [facility] [address] CBC AND BASOPHILS/1 0.5 04/29 Specimen Typ e: BLOOD [facility] DIFF No comment enter ed. WSTRN (AUTO) LEUKOCYTES Ordering Pro vider: APOORVA MORENO [place] IN BLOOD BY Report Rele ased Date/Time: Nov 07, 2021 03:26 PM TS HCS AUTOMATED Reporting Lab : [facility] [place] [facility] COUNT [address] [facility] [address] Performing Lab: [facility] [place] [facility] [address] [facility] [address] CBC AND NEUTROPHILS 2.78 2.20 - 04/29 Specimen Typ e: BLOOD [facility] DIFF [#/VOLUME] 7.60 No comment en tered. WSTRN (AUTO) IN BLOOD BY Ordering Pr ovider: APOORVA MORENO [place] AUTOMATED Report Rele ed Date/Time: Nov 07, 2021 03:26 PM TS HCS COUNT Reporting Lab: [facility] [place] [facility] [address] [facility] [address] Performing Lab: [facility] [place] [facility] [address] [facility] [address] CBC AND LYMPHOCYTES 1.01 1.00 - 04/29 Specimen Typ e: BLOOD [facility] DIFF [#/VOLUME] 3.20 No comment en tered. WSTRN (AUTO) IN BLOOD BY Ordering Pr ovider: APOORVA MORENO [place] AUTOMATED Report Releas ed Date/Time: Nov 07, 2021 03:26 PM TS HCS COUNT Reporting Lab: [facility] [place] [facility] [address] [facility] [address] Performing Lab: [facility] [place] [facility] [address] [facility] [address] CBC AND EOSINOPHILS 0.11 0.03 - 04/29 Specimen Typ e: BLOOD [facility] DIFF [#/VOLUME] 0.44 /2021 No comment en tered. WSTRN (AUTO) IN BLOOD BY Ordering Pr ovider: APOORVA MORENO AUTOMATED Report Releas ed Date/Time: Nov 07, 2021 03:26 PM TS HCS COUNT Reporting Lab: [facility] [place] [facility] [address] [facility] [address] Performing Lab: [facility] [place] [facility] [address] [facility] [address] CBC AND BASOPHILS 0.02 0.01 - 04/29 Specimen Type: BLOOD [facility] DIFF [#/VOLUME] 0.13 No comment en tered. WSTRN (AUTO) IN BLOOD BY Ordering Pr ovider: APOORVA MORENO AUTOMATED Report Releas ed Date/Time: Nov 07, 2021 03:26 PM TS HCS COUNT Reporting Lab: [facility] [place] [facility] [address] [facility] [address] Performing Lab: [facility] [place] [facility] [address] [facility] [address] CBC AND IMMATURE 0.5 04/29 Specimen Type: BLOOD [facility] DIFF GRANULOCYTE /2021 No comment e ntered. WSTRN (AUTO) S/100 Ordering Provid er: APOORVA MORENO LEUKOCYTES Report Relea sed Date/Time: Nov 07, 2021 03:26 PM TS HCS IN BLOOD BY Reporting L ab: [facility] [place] [facility] AUTOMATED [address] [facility] [address] COUNT Performing Lab: [facility] [place] [facility] [address] [facility] [address] CBC AND IMMATURE 0.02 0.00 - 04/29 Specimen Type: BLOOD [facility] DIFF GRANULOCYTE 0.06 No comment e ntered. WSTRN (AUTO) S Ordering Provid er: APOORVA MORENO [#/VOLUME] Report Relea sed Date/Time: Nov 07, 2021 03:26 PM TS HCS IN BLOOD Reporting Lab: [facility] [place] [facility] [address] [facility] [address] Performing Lab: [facility] [address] [facility] [facility] [address] TESTOSTER TESTOSTERON 192.87 220.00 - 04/29 L Specimen Type: SERUM [facility] ONE, E 892.00 No comment enter ed. WSTRN TOTAL [MASS/VOLUM Ordering Pr ovider: APOORVA MORENO] IN SERUM Report Rele ased Date/Time: Oct 30, 2021 11:07 AM TS HCS OR PLASMA Reporting Lab : [place] [facility] [place] [facility] [address] [facility] [facility] [address] Performing Lab: [facility] [place] [address] [address] PSA PROSTATE 0.11 0.00 - 04/29 Specimen Type: SERUM [facility] SPECIFIC AG 4. No comment e ntered. WSTRN [MASS/VOLUM Ordering Pr ovider: APOORVA MORENO] IN SERUM Report Rele ased Date/Time: Oct 30, 2021 11:07 AM TS HCS OR PLASMA Reporting Lab : [facility] [address] [facility] [facility] [address] Performing Lab: [facility] [address] [facility] [facility] [address] LIPID CHOLESTEROL 156 7 - 199 04/29 Specimen Typ e: SERUM [facility] PANEL [MASS/VOLUM /2021 No comment e ntered. WSTRN FASTING E] IN SERUM Ordering Pr ovider: APOORVA MORENO OR PLASMA Report Releas ed Date/Time: Oct 30, 2021 11:07 AM TS HCS Reporting Lab: [facility] [place] [facility] [address] [facility] [facility] [address] Performing Lab: [facility] [address] [facility] [facility] [address] LIPID TRIGLYCERID 87 0 - 150 04/29 Specimen Typ e: SERUM [facility] PANEL E /2021 No comment enter ed. WSTRN FASTING [MASS/VOLUM Ordering Pr ovider: VANWAGNER,APOORVA F [place] E] IN SERUM Report Rele ased Date/Time: Oct 30, 2021 11:07 AM TS HCS OR PLASMA Reporting Lab : [facility] [place] [facility] [address] [address] Performing Lab: [facility] [place] [address] [address] LIPID CHOLESTEROL 96 0 - 129 09 Specimen Typ e: [facility] PANEL IN LDL /2021 No comment enter ed. [facility] FASTING [MASS/VOLUM Ordering Pr ovider: APOORVA MORENOCHUSE E] IN SERUM Report Rele ased Date/Time: Oct 30, 2021 11:07 AM TS [facility] OR PLASMA Reporting Lab : [facility] [place] [facility] [address] [address] CALCULATION Performing Lab: [facility] [place] [address] [address] LIPID CHOLESTEROL 3.6 04/29 Specimen Typ e: [facility] PANEL .TOTAL/CHOL /2021 No comment e ntered. [facility] FASTING ESTEROL IN Ordering Pro vider: APOORVA MORENOCHUSE HDL [MASS Report Releas ed Date/Time: Oct 30, 2021 11:07 AM TS [facility]CS RATIO] IN Reporting Lab : [facility] [place] [facility] SERUM OR [address] [place] [phone] PLASMA Performing Lab: [facility] [place] [address] [address] LIPID CHOLESTEROL 43 40 - 60 04/29 Specimen Typ e: [facility] PANEL IN HDL /2021 No comment enter ed. [facility]STRN FASTING [MASS/VOLUM Ordering Pr ovider: APOORVA MORENO [place] E] IN SERUM Report Rele ased Date/Time: Oct 30, 2021 11:07 AM TS [facility] OR PLASMA Reporting Lab : [facility] [place] [facility] [address] [address] Performing Lab: [facility] [place] [address] [address] LIVER PROTEIN 6.2 6.0 - 8.3 04/29 Specimen Type: [facility] FUNCTION [MASS/VOLUM /2021 No comment entered. WSTRN E] IN SERUM Ordering Pr ovider: APOORVA MORENO OR PLASMA Report Releas ed Date/Time: Oct 30, 2021 11:07 AM TS [facility] Reporting Lab: [facility] [place] [facility] [address] [address] Performing Lab: [facility] [place] [facility] [address] [address] LIVER ALBUMIN 3.7 3.5 - 5.0 04/29 Specimen Type: [facility] FUNCTION [MASS/VOLUM /2021 No comment entered. WSTRN E] IN SERUM Ordering Pr ovider: APOORVA MORENOCHJUDY OR PLASMA Report Releas ed Date/Time: Oct 30, 2021 11:07 AM [facility] Reporting Lab: [facility] [place] [facility] [address] [facility] [facility] [address] Performing Lab: [facility] [place] [address] [address] LIVER ALKALINE 53 40 - 150 04/29 Specimen Type: SERUM [facility] FUNCTION No comment entered. WSTRN [ENZYMATIC Ordering Pro vider: APOORVA MORENO ACTIVITY/VO Report Rele ased Date/Time: Oct 30, 2021 11:07 AM [facility] LUME] IN Reporting Lab: [facility] [place] [facility] SERUM OR [address] [place] [address] PLASMA Performing Lab: [facility] [place] [address] [address] LIVER ASPARTATE 34 5 - 34 04/29 Specimen Type: SERUM [facility] FUNCTION AMINOTRANSF /2021 No comment entered. WSTRN ERASE Ordering Provid er: APOORVA MORENO [ENZYMATIC Report Relea sed Date/Time: Oct 30, 2021 11:07 AM [facility] ACTIVITY/VO Reporting L ab: [facility] [place] [facility] LUME] IN [address] [facility] [facility] [address] SERUM OR Performing Lab : [facility] [place] [facility] PLASMA [address] [facility] [facility] [address] LIVER ALANINE 27 6 - 55 04/29 Specimen Type: S CORDELL [facility] FUNCTION AMINOTRANSF /2021 No comment entered. WSTRN ERASE Ordering Provid er: APOORVA MORENO [ENZYMATIC Report Relea sed Date/Time: Oct 30, 2021 11:07 AM [facility] ACTIVITY/VO Reporting L ab: [facility] [place] [facility] LUME] IN [address] [facility] [facility] [address] SERUM OR Performing Lab : [facility] [place] [facility] PLASMA [address] [facility] [facility] [address] LIVER BILIRUBIN.T 0.6 0.2 - 1.2 04/29 Specimen T ype: SERUM [facility] FUNCTION OTAL /2021 No comment ente red. WSTRN [MASS/VOLUM Ordering Pr ovider: APOORVA MORENO E] IN SERUM Report Rele ased Date/Time: Oct 30, 2021 11:07 AM [facility] PLASMA Reporting Lab : [facility] [place] [facility] [address] [facility] [facility] [address] Performing Lab: [facility] [place] [facility] [address] [facility] [facility] [address] BASIC UREA 16 7 - 25 04/29 Specimen Type: S CORDELL [facility] METABOLIC NITROGEN /2021 No comment en tered. WSTRN PANEL [MASS/VOLUM Ordering Pr ovider: APOORVA MORENO (fasting) E] IN SERUM Report Re leased Date/Time: Oct 30, 2021 11:07 AM [facility] OR PLASMA Reporting Lab : [facility] [place] [facility] [address] [facility] [address] Performing Lab: [facility] [place] [facility] [address] [facility] [facility] [address] BASIC GLUCOSE 107 65 - 100 04/29 H Specimen Type: SERUM [facility] METABOLIC [MASS/VOLUM /2021 No comment entered. WSTRN PANEL E] IN SERUM Ordering Pr ovider: APOORVA MORENO (fasting) OR PLASMA Report Rele ased Date/Time: Oct 30, 2021 11:07 AM [facility] Reporting Lab: [facility] [place] [facility] [address] [facility] [facility] [address] Performing Lab: [facility] [address] [facility] [facility] [address] BASIC SODIUM 139 135 - 145 04/29 Specimen Type: SERUM [facility] METABOLIC [MOLES/VOLU /2021 No comment entered. WSTRN PANEL ME] IN Ordering Provid er: APOORVA MORENO (fasting) SERUM OR Report Relea sed Date/Time: Oct 30, 2021 11:07 AM [facility] PLASMA Reporting Lab: [facility] [address] [facility] [facility] [address] Performing Lab: [facility] [address] BASIC POTASSIUM 4.4 3.5 - 5.0 04/29 Specimen Typ e: SERUM [facility] METABOLIC [MOLES/VOLU /2021 No comment entered. WSTRN PANEL ME] IN Ordering Provid er: APOORVA MORENO (fasting) SERUM OR Report Relea sed Date/Time: Oct 30, 2021 11:07 AM [facility] PLASMA Reporting Lab: [facility] [address] [facility] [facility] [address] Performing Lab: [facility] [address] [facility] [facility] [address] BASIC CHLORIDE 108 100 - 110 04/29 Specimen Type : SERUM [facility] METABOLIC [MOLES/VOLU /2021 No comment entered. WSTRN PANEL ME] IN Ordering Provid er: APOORVA MORENO (fasting) SERUM OR Report Relea sed Date/Time: Oct 30, 2021 11:07 AM [facility] PLASMA Reporting Lab: [facility] [address] [facility] [facility] [address] Performing Lab: [facility] [address] BASIC CARBON 22 20 - 30 04/29 Specimen Type: S CORDELL [facility] METABOLIC DIOXIDE, /2021 No comment en tered. WSTRN PANEL TOTAL Ordering Provid er: VANWAGNER,APOORVA F [place] (fasting) [MOLES/VOLU Report Re leased Date/Time: Oct 30, 2021 11:07 AM [facility] ME] IN Reporting Lab: [facility] [place] [facility] SERUM OR [address] [facility] [facility] [address] PLASMA Performing Lab: [facility] [place] [facility] [address] [facility] [facility] [address] BASIC CREATININE 0.74 0.50 - 04/29 Specimen Type : SERUM [facility] METABOLIC [MASS/VOLUM 1.40 /2021 No comment entered. WSTRN PANEL E] IN SERUM Ordering Pr ovider: APOORVA MORENO (fasting) OR PLASMA Report Rele ased Date/Time: Oct 30, 2021 11:07 AM [facility] Reporting Lab: [facility] [place] [facility] [address] [facility] [facility] [address] Performing Lab: [facility] [place] [facility] [address] [facility] [facility] [address] BASIC GLOMERULAR >90 60 04/29 Specimen Type : SERUM [facility] METABOLIC FILTRATION /2021 No comment entered. WSTRN PANEL RATE/1.73 Ordering Prov ider: APOORVA MORENO (fasting) SQ Report Releas ed Date/Time: Oct 30, 2021 11:07 AM TS [facility] M.PREDICTED Reporting L ab: [facility] [place] [facility] [VOLUME [address] [facility] [facility] [address] RATE/AREA] Performing L ab: [facility] [place] [facility] IN SERUM, [address] [facility] [facility] [address] PLASMA OR BLOOD BY CREATININE- BASED FORMULA (CKD-EPI) TESTOSTER TESTOSTERON 320.52 220.00 - 06/ Specimen Type: SERUM [facility] ONE, E 892.00 No comment enter ed. WSTRN TOTAL [MASS/VOLUM Ordering Pr ovider: APOORVA MORENOCHJUDY E] IN SERUM Report Rele ased Date/Time: Oct 28, 2020 03:21 PM [facility] OR PLASMA Reporting Lab : [facility] [place] [facility] [address] [facility] [facility] [address] Performing Lab: [facility] [place] [facility] [address] [place] [address] LIVER PROTEIN 6.5 6.0 - 8.3 01/18 Specimen Type: SERUM [facility] FUNCTION [MASS/VOLUM /2020 No comment entered. WSTRN E] IN SERUM Ordering Pr ovider: APOORVA MORENO [place] PLASMA Report Releas ed Date/Time: Oct 28, 2020 03:21 PM [facility] Reporting Lab: [facility] [place] [facility] [address] [facility] [facility] [address] Performing Lab: [facility] [place] [facility] [address] [facility] [facility] [address] LIVER ALBUMIN 4.0 3.5 - 5.0 01/18 Specimen Type: SERUM [facility] FUNCTION [MASS/VOLUM /2020 No comment entered. WSTRN E] IN SERUM Ordering Pr ovider: APOORVA MORENO [place] PLASMA Report Releas ed Date/Time: Oct 28, 2020 03:21 PM [facility] Reporting Lab: [facility] [place] [facility] [address] [facility] [facility] [address] Performing Lab: [facility] [place] [facility] [address] [facility] [facility] [address] LIVER ALKALINE 54 40 - 150 01/18 Specimen Type: SERUM [facility] FUNCTION No comment entered. WSTRN [ENZYMATIC Ordering Pro vider: APOORVA MORENO ACTIVITY/VO Report Rele ased Date/Time: Oct 28, 2020 03:21 PM [facility] LUME] IN Reporting Lab: [facility] [place] [facility] SERUM OR [address] [facility] [facility] [address] PLASMA Performing Lab: [facility] [place] [facility] [address] [facility] [facility] [address] LIVER ASPARTATE 28 5 - 34 01/18 Specimen Type: SERUM [facility] FUNCTION AMINOTRANSF /2020 No comment entered. WSTRN ERASE Ordering Provid er: APOORVA MORENO [ENZYMATIC Report Relea sed Date/Time: Oct 28, 2020 03:21 PM [facility] ACTIVITY/VO Reporting L ab: [facility] [place] [facility] LUME] IN [address] [facility] [facility] [address] SERUM OR Performing Lab : [facility] [place] [facility] PLASMA [address] [facility] [facility] [address] LIVER ALANINE 31 0 - 55 06 Specimen Type: S CORDELL [facility] FUNCTION AMINOTRANSF /2020 No comment entered. WSTRN ERASE Ordering Provid er: APOORVA MORENO [ENZYMATIC Report Relea sed Date/Time: Oct 28, 2020 03:21 PM [facility] ACTIVITY/VO Reporting L ab: [facility] [place] [facility] LUME] IN [address] [facility] [facility] [address] SERUM OR Performing Lab : [facility] [place] [facility] PLASMA [address] [facility] [facility] [address] LIVER BILIRUBIN.T 0.8 0.2 - 1.2 01/18 Specimen T ype: SERUM [facility] FUNCTION OTAL /2020 No comment ente red. WSTRN [MASS/VOLUM Ordering Pr ovider: APOORVA MORENO E] IN SERUM Report Rele ased Date/Time: Oct 28, 2020 03:21 PM [facility] OR PLASMA Reporting Lab : [facility] [place] [facility] [address] [facility] [facility] [address] Performing Lab: [facility] [place] [facility] [address] [facility] [facility] [address] LIPID CHOLESTEROL 160 0 - 199 06/04 Specimen Typ e: SERUM [facility] PANEL [MASS/VOLUM /2020 No comment e ntered. WSTRN FASTING E] IN SERUM Ordering Pr ovider: APOORVA MORENO OR PLASMA Report Releas ed Date/Time: Oct 28, 2020 03:21 PM [facility] Reporting Lab: [facility] [place] [facility] [address] [facility] [facility] [address] Performing Lab: [facility] [place] [facility] [address] [place] [address] LIPID TRIGLYCERID 77 0 - 150 06/04 Specimen Typ e: SERUM [facility] PANEL E /2020 No comment enter ed. WSTRN FASTING [MASS/VOLUM Ordering Pr ovider: VANWAGNER,APOORVA F [place] E] IN SERUM Report Rele ased Date/Time: Oct 28, 2020 03:21 PM [facility] OR PLASMA Reporting Lab : [facility] [place] [facility] [address] [facility] [facility] [address] Performing Lab: [facility] [place] [address] [address] LIPID CHOLESTEROL 102 0 - 129 06/04 Specimen Typ e: SERUM [facility] PANEL IN LDL /2020 No comment enter ed. WSTRN FASTING [MASS/VOLUM Ordering Pr ovider: APOORVA MORENOCHUSE E] IN SERUM Report Rele ased Date/Time: Oct 28, 2020 03:21 PM [facility] OR PLASMA Reporting Lab : [facility] [place] [facility] BY [address] [facility] [facility] [address] CALCULATION Performing Lab: [facility] [place] [address] [address] LIPID CHOLESTEROL 3.7 06/04 Specimen Typ e: SERUM [facility] PANEL .TOTAL/CHOL /2020 No comment e ntered. WSTRN FASTING ESTEROL IN Ordering Pro vider: APOORVA MORENOCHUSE HDL [MASS Report Releas ed Date/Time: Oct 28, 2020 03:21 PM [facility] RATIO] IN Reporting Lab : [facility] [place] [facility] SERUM OR [address] [place] [address] PLASMA Performing Lab: [facility] [place] [address] [address] LIPID CHOLESTEROL 43 40 - 60 06/04 Specimen Typ e: SERUM [facility] PANEL IN HDL /2020 No comment enter ed. WSTRN FASTING [MASS/VOLUM Ordering Pr ovider: APOORVA MORENO [place] E] IN SERUM Report Rele ased Date/Time: Oct 28, 2020 03:21 PM [facility] OR PLASMA Reporting Lab : [facility] [place] [address] [address] Performing Lab: [facility] [place] [address] [address] CBC LEUKOCYTES 4.44 4.50 - 06/04 L Specimen Type : BLOOD [facility] [#/VOLUME] 11.00 No comment en tered. WSTRN IN BLOOD BY Ordering Pr ovider: APOORVA MORENO AUTOMATED Report Releas ed Date/Time: Oct 28, 2020 03:21 PM [facility] COUNT Reporting Lab: [facility] [place] [facility] [address] [facility] [facility] [address] Performing Lab: [facility] [place] [facility] [address] [facility] [facility] [address] CBC ERYTHROCYTE 4.93 4.23 - 06/04 Specimen Typ e: BLOOD [facility] S 5.66 No comment enter ed. WSTRN [#/VOLUME] Ordering Pro vider: APOORVA MORENO [place] IN BLOOD BY Report Rele ased Date/Time: Oct 28, 2020 03:21 PM [facility] AUTOMATED Reporting Lab : [facility] [place] [facility] COUNT [address] [facility] [facility] [address] Performing Lab: [facility] [place] [facility] [address] [facility] [address] CBC HEMOGLOBIN 14.6 12.8 - 17 06 Specimen Ty pe: BLOOD [facility] [MASS/VOLUM /2020 No comment e ntered. WSTRN E] IN BLOOD Ordering Pr ovider: APOORVA MORENO Report Released Date/Time: Oct 28, 2020 03:21 PM [facility] Reporting Lab: [facility] [place] [facility] [address] [facility] [address] Performing Lab: [facility] [place] [facility] [address] [facility] [facility] [facility] [address] CBC HEMATOCRIT 44.8 39.2 - 06/04 Specimen Type : BLOOD [facility] [VOLUME 50.4 No comment enter ed. WSTRN FRACTION] Ordering Prov ider: APOORVA MORENOCHUSE OF BLOOD BY Report Rele ased Date/Time: Oct 28, 2020 03:21 PM [facility] AUTOMATED Reporting Lab : [facility] [place] [facility] COUNT [address] [facility] [facility] [address] Performing Lab: [facility] [place] [facility] [address] [facility] [facility] [address] CBC MCV 90.9 82 - 99 06 Specimen Type: B LOOD [facility] [ENTITIC /2020 No comment ente red. WSTRN VOLUME] BY Ordering Pro vider: APOORVA MORENO AUTOMATED Report Releas ed Date/Time: Oct 28, 2020 03:21 PM [facility] COUNT Reporting Lab: [facility] [place] [facility] [address] [facility] [address] Performing Lab: [facility] [place] [facility] [address] [facility] [facility] [address] CBC MCHC 32.6 30.8 - 06/ Specimen Type: B LOOD [facility] [MASS/VOLUM 35.1 No comment e ntered. WSTRN E] BY Ordering Provid er: APOORVA MORENO AUTOMATED Report Releas ed Date/Time: Oct 28, 2020 03:21 PM [facility] COUNT Reporting Lab: [facility] [place] [facility] [address] [facility] [address] Performing Lab: [facility] [place] [facility] [address] [facility] [facility] [address] CBC PLATELETS 202 140 - 360 01/18 Specimen Typ e: BLOOD [facility] [#/VOLUME] /2020 No comment en tered. WSTRN IN BLOOD BY Ordering Pr ovider: APOORVA MORENO AUTOMATED Report Releas ed Date/Time: Oct 28, 2020 03:21 PM [facility] COUNT Reporting Lab: [facility] [place] [facility] [address] [facility] [address] Performing Lab: [facility] [place] [facility] [address] [facility] [facility] [address] CBC ERYTHROCYTE 12.9 12.0 - 06 Specimen Typ e: BLOOD [facility] DISTRIBUTIO 16.0 No comment e ntered. WSTRN N WIDTH Ordering Provid er: APOORVA MORENO [RATIO] BY Report Relea sed Date/Time: Oct 28, 2020 03:21 PM [facility] AUTOMATED Reporting Lab : [facility] [place] [facility] COUNT [address] [facility] [address] Performing Lab: [facility] [place] [facility] [address] [facility] [facility] [address] CBC MCH 29.6 26.2 - 06/04 Specimen Type: B LOOD [facility] [ENTITIC 32.6 No comment ente red. WSTRN MASS] BY Ordering Provi kassandra: APOORVA MORENO [place] AUTOMATED Report Releas ed Date/Time: Oct 28, 2020 03:21 PM [facility] COUNT Reporting Lab: [facility] [place] [facility] [address] [facility] [address] Performing Lab: [facility] [place] [facility] [address] [facility] [facility] [address] Vital Signs Combined list of inpatient and outpatient Vital Signs from Department of Defense and Veterans Affairs, ranging from 12 months to all on record, depending upon the facility. Vital Sign Value Date Comments Source SYSTOLIC BLOOD PRESSURE 170 05/08/2022 [facility]07:[facility] [place] [facility] DIASTOLIC BLOOD PRESSURE 100 05/08/2022 [facility] [place] [facility] PULSE OXIMETRY 96% 05/08/2022 [facility]07[facility] [place] [facility] WEIGHT 198 05/08/2022 [facility] [place] [facility] BMI 31kg/m2 05/08/2022 [facility] [place] [facility] TEMPERATURE 98.5 05/08/2022 [facility] [place] [facility] PULSE 77 05/08/2022 [facility] [place] [facility] RESPIRATION 16 05/08/2022 [facility]07[facility] [place] [facility] SYSTOLIC BLOOD PRESSURE 140 11/07/2021 [facility] 14:59:25 [place] [facility] DIASTOLIC BLOOD PRESSURE 80 11/07/2021 [facility]59[facility] [place] [facility] PULSE OXIMETRY 6% 11/07/2021 [facility] 14[facility]59[facility] WEIGHT 198 11/07/2021 [facility]59[facility] BMI 31kg/m2 11/07/2021 [facility]59[facility] PAIN 0 11/07/2021 [facility]59[facility] HEIGHT 67 11/07/2021 [facility]59[facility] TEMPERATURE 97.2 11/07/2021 [facility]59[facility] PULSE 71 11/07/2021 [facility]59[facility] RESPIRATION 20 11/07/2021 [facility] [facility] Encounters Combined list of: 1) Encounters from Department of Veterans Affairs facilities going back up to the last 18 months. 2) Encounters from the Department of Defense facilities going back up to 280 months. Location Location Encounter Encounter Reason Attending ADM DC Stat us Disposition Source Details Type Number For Provider Date Date Visit Outpatient [id number] 12/06 [facility] [id number] [place] [facility] Outpatient [id number] MARIANNA KNIGHT 12/19 [facility] Encounter [id number] [facility] [place] [id number] ,ABELARDO [facility] [place] [facility] Outpatient [id number] [facility] 12/27 [facility] Encounter [id number] ,ABELARDO [facility] [place] [facility] HC PRO 74441-3.63 Diagnos MARIANNA KNIGHT 01/02 V A PHONE CALL [id number] is: HIE K CNTR L 5-10 MIN ICD-10- WSTRN CM [place] Z71.89 SETS Other HCS specifi ed retirement plan counselor ing<br/ >with Provide r Comment s: Other specifi ed retirement plan counselor ing Outpatient [id number] 01/02 [facility] Encounter [id number] [facility] [place] [facility] OFFICE O/P [id number] Diagnos JOSE DE JESUSER, 01/24 [facility] EST LOW [id number] is: APOORVA F CNT RL 20-29 MIN ICD-10- W[facility] CM [place] 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) Outpatient [id number] 02/26 [facility] Encounter [id number] [facility] [place] [id number] [place] 03/12 [facility] Encounter [id number] ISTOPHER E [facility] [id number] 04/26 [facility] Encounter [id number] [facility] [id number] 05/08 [facility] Encounter [id number] [facility] [id number] 05/08 [facility] Encounter [id number] /2021 [facility] [id number] 05/08 [facility] Encounter [id number] /2021 [facility] EYE 24938-5.63 Diagnos [facility] 05/22 [facility] EXAM&TX [id number] is: BRANDYN CNTRL ESTAB PT ICD-10- WSTRN 1/>VST CM [place] H40.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 SETS 1 HCS Low-ten orquidea glaucom a, left eye, mild stage<b r/>with Provide r Comment s: Low-Ten orquidea Gl[place] a,Mild, Left Eye EYE 46400-0.63 Diagnos [facility] 05/22 VA EXAM&TX [id number] is: BRANDYN CNTRL ESTAB PT ICD-10- WSTRN 1/>VST CM [place] H40.122 SETS 1 HCS Low-ten orquidea glaucom a, left eye, mild stage<b r/>with Provide r Comment s: Low-Ten orquidea Gl[place] a,Mild, Left Eye Outpatient [id number] 10/07 [facility] Encounter [id number] [facility] [id number] 06/25 [facility] Encounter [id number] [facility] Out[facility] 65115-0.20 07/14 [facility] Encounter [id number] NS 721 [facility] Outpatient [id number] 07/31 [facility] Encounter [id number] /2021 [facility] [id number] 09/18 [facility] Encounter [id number] [facility] [id number] 09/19 [facility] Encounter [id number] [facility] [place] [facility] Outpatient [id number] 09/23 [facility] Encounter [id number] [facility] [place] [facility] OFFICE O/P [id number] Diagnos JOSH, 11/07 [facility] EST LOW [id number] is: APOORVA CNT RL 20-29 MIN ICD-10- [facility] CM [place] 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
w ith Provide r Comment s: Cancer of prostat e (SCT [id number] 03) VISUAL 49668-1.63 Diagnos KYLAHAN 12/13 V A FIELD [id number] is: BRANDYN CNTRL EXAMINATIO ICD-10- WSTRN N(S) CM [place] H40.122 SETS 1 [facility] Low-ten orquidea glaucom a, left eye, mild stage<b r/>with Provide r Comment s: Low-Ten orquidea Glau[place] a,Mild, Left Eye EYE EXAM 16553-8.63 Diagnos SEAN,AN 12/13 [facility] ESTABLISH [id number] is: BRANDYN CNTR L PATIENT ICD-10- WSTRN CM [place] H40.122 SETS 1 [facility]CS Low-ten orquidea glaucom a, left eye, mild stage<b r/>with Provide r Comment s: Low-Ten orquidea Glaucom a,Mild, Left Eye CMPTR 00723-9.63 Diagnos BORASKI,AN 12/13 [facility] OPHTH IMG [id number] is: BRANDYN E /2021 CNTR L OPTIC ICD-10- WSTRN NERVE CM [place] H40.122 SETS 1 [facility]CS Low-ten orquidea glaucom a, left eye, mild stage<b r/>with Provide r Comment s: Low-Ten orquidea Glaucom a,Mild, Left Eye Outpatient [id number] 01/03 [facility] Encounter [id number] /2022 [facility] [id number] 04/29 [facility] Encounter [id number] [facility] [place] [facility] OFFICE O/P 35617-3.63 Diagnos JOSH, 05/08 [facility] EST LOW [id number] is: APOORVA F CNT RL 20-29 MIN ICD-10- [facility] CM [place] 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
w ith Provide r Comment s: Cancer of prostat e (SCT [id number] 03) Outpatient [id number] 05/13 [facility] Encounter [id number] /2022 [facility] [id number] 05/14 [facility] Encounter [id number] /2022 [facility] Social History Combined list of available smoking, tobacco, and other social history from [facility] facilities. Social History Response Date Comment Source Type Tobacco smoking [facility]-TOBACCO FORMER 07/31/2021 [facility] History of VA-TOBACCO QUIT 15 07/31/2021 [facility] tobacco use YRS OR MORE [facility] History of VA-TOBACCO FORMER 06/29/2020 [facility] tobacco use [facility] History of VA-TOBACCO QUIT 15 02/10/2019 [facility] tobacco use YRS OR MORE [facility] History of QUIT TOBACCO USE > 11/27/2017 [facility] use 7 YEARS A[facility] of [facility] History of QUIT TOBACCO USE > 09/17/2015 stopped 20 years [facility] tobacco use 7 YE[facility] A[facility] History of HISTORY OF SMOKING 02/24/2005 [facility] History of QUIT TOBACCO USE > 05/28/2004 [facility] History of HISTORY OF SMOKING 11/27/2003 [facility] tobacco use [facility] History of QUIT TOBACCO [facility] History of HISTORY OF SMOKING 08[facility]24/[facility] History of QUIT TOBACCO USE 02/11[facility] History of HISTORY OF SMOKING 05/21/2001 quit 5 years ago [facility] tobacco use [facility] Plan of Care List of future care activities from [facility] Affairs facilities. Additional future care activities may be listed in the Assessment and Plan section. Date/Time Care Activity Care Activity Detail Facility 07/09/2022 AMBULATORY - MEDICINE AMBULATORY - MEDICINE [facility]
--- OUTSIDE RECORDS SUMMARY | 2022-05-27 20:44 | XMS_ITS | Encounter Summary ---
:1945 Author Organization Department of [facility] rs Address [address] [place] [id number] Support Name Relationship Address Phone MAURA COELHO Unavailable [address] [place] [address] MAURA COELHO Unavailable [address] [facility] [place] [address] GISELLE COELHO Unavailable [address] [place] [address] Insurance Providers: All historical and current Section [...] Hare HEALTH NEW MEDICARE MCR Apr 17, [id number] [phone] Lauren SEVILLA PATIENT [facility] ([facility]) 2012 [id number] [facility] ([facility]) HEALTH NEW MEDICARE MCR Apr 17, [id number] [phone] Lauren SEVILLA PATIENT [facility] ([facility]) 2012 9 35 4 [facility] ([facility]) Selected Encounter This section includes the information on record at [place] for the Encounter. Date/Time Encounter Type Encounter Reason Provider Source Description Dec 13, 2021 EYE EXAM OPTOMETRY ICD-10-CM PURNIMA ESTRADA 10:30 AM ESTABLISH H40.1221 E PATIENT Low-tension glaucoma, left eye, mild stage with Provider Comments: Low-Tension Glaucoma,Mild, Left Eye IHE Encounter Template Text not used by VA Assessments - Encounter Diagnoses This section includes the primary and secondary diagnoses documented for the Encounter. Date/Time Primary/Secondary Diagnosis Name Provider Source Diagnosis Dec 13, 2021 PRIMARY Low-tension PURNIMA ESTRADA [place] [facility] [place] [place] 10:59 AM glaucoma, left E [place] [facility] eye, mild stage Dec 13, 2021 SECONDARY Combined forms PURNIMA ESTRADA [place] [facility] [place] TRN 10:59 AM of age-related E [place] [facility] cataract, bilateral Plan of Treatment: Future Appointments (+ 6 months) and Future Tests (+/- 45 days) The Plan of Treatment section includes future care activities for the patient [facility] [place] [facility] This section includes future appointments and future orders which are active, pending orscheduled.Future Appointments This section includes appointments that were scheduled to occur 6 months from the date of the Encounter, up to a maximum of 20 appointments. The data comes from all [place] treatment facilities. Appointment Date/Time Appointment Type Appointment Facili ty Name May 08, 2022 03:00 PM AMBULATORY - MEDICINE [facility]N [facility] Social History: Smoking Status (Most current) and Tobacco Use (All prior to encounter date) This section includes the most current, and the historical, smoking and tobacco-related health factors from the [place] facility where the Encounter took place.Current Smoking Status This section includes the most current smoking, or tobacco-related health factor, from the [place] facility where the Encounter took place. Date/Time Current Smoking Status Comment Facility Jul 31, 2021 09:41 AM [facility] Tobacco Use History This section includes a history of the smoking, or tobacco- related health factors, that were collected on or before the date of the Encounter. The data comes from the [place] facility where the Encounter took place. Date/Time Smoking Status/Tobacco Comment Facility Use Jul 31, 2021 09:41 [place]-TO[place] QUIT 15 YRS [place] [facility] [place] AM [place] [facility] Jun 29, 2020 11:00 VA-TOBACCO FORMER USER [place] [facility] [place] [facility] Jun 29, 2020 11:00 [place] QUIT 15 YRS [place] [facility] [facility] Feb 10, 2019 10:14 VA-TOBACCO FORMER USER [place] [facility] [place] [facility] Feb 10, 2019 10:14 [place]-TO[place] QUIT 15 YRS OR [place] [facility] AM [place] [facility] Nov 27, 2017 11:12 QUIT TOBACCO USE > 7 [facility] AM YEARS AGO [place] [facility] Nov 05, 2016 11:01 QUIT TOBACCO USE > 7 [facility] AM YEARS AGO [place] [facility] Sep 17, 2015 01:03 QUIT TOBACCO USE > 7 [facility] W[facility]N PM YEARS AGO stopped 20 years ago [place] [facility] Feb 24, 2005 10:09 HISTORY OF SMOKING [facility] AM [place] [facility] May 28, 2004 08:08 QUIT TOBACCO USE > 7 [facility]N AM YEARS AGO [place] [facility] Nov 27, 2003 01:12 HISTORY OF SMOKING [facility] W STRN PM [place] [facility] Mar 15, 2003 02:03 QUIT TOBACCO USE 1-7 [facility] W[facility]N PM YEARS AGO [place] [facility] Aug 24, 2002 11:07 HISTORY OF SMOKING [facility] W STRN AM [place] [facility] Feb 11, 2002 11:35 QUIT TOBACCO USE 1-7 [facility] W[facility]N AM YEARS AGO [place] [facility] May 21, 2001 01:11 HISTORY OF SMOKING [facility] Encounter Notes: All associated encounter notes This section contains the clinical notes associated to the Encounter. Date/Time Encounter Note(s) Provider Source Dec 13, 2021 11:03 OPTOMETRY NOTE: PURNIMA ESTRADA RN AM LOCAL TITLE: OPTOMETRY NOTE(T) [facility] STANDARD TITLE: OPTOMETRY NOTE DATE OF NOTE: DEC 13, 2021@11:03 ENTRY DATE: DEC 13, 2021@11:03:06 AUTHOR: PURNIMA ESTRADA EXP COSIGNER: URGENCY: STATUS: COMPLETED Results were viewed and clin ical findings were reviewed with student project management intern and patient and results are in this note. Assessment and plan are reasonable. 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 /rajesh/ PURNIMA ESTRADA OD STAFF SALON SHAMPOO ASSISTANT Signed: 12/13/2021 11:03 Dec 13, 2021 08:00 OPTOMETRY NOTE: PURNIMA ESTRADARCipriano GODOY RN AM LOCAL TITLE: [facility] STANDARD TITLE: OPTOMETRY NOTE DATE OF NOTE: DEC 13, 2021@08:00 ENTRY DATE: DEC 13, 2021@08:00:30 AUTHOR: PURNIMA ESTRADA EXP COSIGNER: URGENCY: STATUS: COMPLETED Active Problems: Active Problem Cancer of prostate D07.5 05/06/2016 CLIFF MORENO LLIAJules F Sciatica D07.5 09/17/2015 APOORVA MORENO Benign essential hypertension (SNOM 01/06/2017 S JAVIER-MOISES ROSADO L Hypogonadism 253.4 06/28/2013 APOORVA MORENO Screening for Malignant Neoplasms o 06/14/2012 V APOORVA NAJERA Hearing loss * (ICD-9-CM 389.9) 389 12/03/2009 W OLPAIGE [place] Tinnitus * (ICD-9-CM 388.30) 388.30 12/03/2009 W PAIGE GARCIA Chronic sinusitis (ICD-9-CM 473.9) 12/03/2009 WO LFPAIGE Impaired FASTING Glucose (ICD-9-CM 12/16/2007 WO LFPAIGE Hyperlipidemia * (ICD-9-CM 272.4) 2 12/16/2007 W PAIGE GARCIA Allergic rhinitis * (ICD-9-CM 477.9 11/27/2005 R AHEB,EDE Diverticulitis, Colonic * (ICD-9-CM 08/22/2010 R AHEB,EDE Hypertrophy (Benign) of Prostate wi 08/26/2012 V APOORVA NAJERA GERD * (ICD-9-CM 530.81) 530.81 02/24/2005 PAIGE CAMACHO Insomnia * (ICD-9-CM 780.52) 780.52 03/15/2003 W PAIGE GARCIA 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 11/27/2003 PAIGE CAMACHO DIAPHRAGMATIC HERNIA 553.3 02/11/2002 TOO CAMACHO CALCULUS OF KIDNEY 592.0 02/11/2002 PAIGE CAMACHO former smoker 799.9 02/11/2002 PAIGE CAMACHO Medications (VA): Active Outpatient Medications (including Supplies): Active Outpatient Medications Status 1) ACYCLOVIR 800MG TAB TAKE ONE TABLET BY MOUTH THREE ACTIVE TIMES A DAY FOR TWO DAYS EACH OCCURRENCE 2) ALPROSTADIL 1000MCG URETHRAL SUPP INSERT 1 AC TIVE SUPPOSITORY INTRAURETHRAL ONCE A WEEK NEEDED FOR ERECTILE DYSFUNCTION 3) ALPROSTADIL 40MCG/CARTRIDGE INJ SYSTEM INJECT 2.5 MCG ACTIVE INTO THE PENIS THREE TIMES A WEEK FOR ERECTILE DYSFUNCTION 4) HYDROCHLOROTHIAZIDE 25MG TAB TAKE ONE TABLET BY MOUTH ACTIVE EVERY MORNING TO PREVENT FLUID/CONTROL BLOOD PRESSURE 5) LATANOPROST 0.005% OPH SOLN INSTILL 1 DROP IN TO THE ACTIVE LEFT EYE AT BEDTIME TO REDUCE PRESSURE IN THE E YE 6) SIMVASTATIN 40MG TAB TAKE ONE-HALF TABLET BY MOUTH AT ACTIVE BEDTIME 7) TADALAFIL 20MG TAB TAKE ONE TABLET BY MOUTH A S ACTIVE NEEDED FOR E.D. 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 He takes la tanoprost nightly OS. He denies any eye injury or disease since his last exam. 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 SHAHRIAR: 05/22/2021 (-) Pain: (-) CRAMER: (-) Diplopia: (-) Flashes: (-) Floaters: (-) Amaurosis Fugax/Tia's: (-) Eye Injury: (-) Eye Surgery: (-) TBI O: Visual acuity without correction was 20/25 - OD and 20/25+ OS. Pupils were equal and round and reactive to light with no af ferent defect. Extraocular muscles were intact and facial confrontation fie lds were full. Dermatochalasis was seen OU and lashes were sachin r both eyes. Corneas and conjunctiva were clear both eyes. Anterior chamb ers were deep clear and quiet with open angles. Iris was flat both eyes. Moderate nuclear sclerotic and cortical cataracts OU. Current Rx with last BCVA: OD: +[id number] VA: 20/20 OS: +[id number] VA: 20/20 Add: +2.50 Intraocular pressures at 10:40 AM were 11 mmHg O D and 10 mmHg OS Pachymetry: 562 OD, 541 OS Fundi reviewed with 90 diopter lens through nond ilated pupils. Vitreous PVD was seen OU. Approximately 50% hori zontal and vertical cupping was seen OD with healthy rims and margins and 75 % horizontal and greater vertical cupping OS with superior notching. Norm al pigmentary architecture of the macula was seen with a two third art basilia to vein ratio. Retinal peripheries were not viewed. 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 The patient will return in 6 months or sooner if any problems arise. [place] Education: After discussion and answeri ng all 's questions, demonstrated and verbalized understanding of diagnosis and treatm ent. Yes [x] No [ ] Patient Education: Glaucoma: Patient was educated regarding glaucoma/glaucoma suspect as well as the natural history of this diagnosis including prognosis. Stress importance of compliance and persistency with glaucoma medication when prescribed, timely follow up as well as the role of ancillary testing. Exclusion criteria for anc illary testing include significantly reduced acuity, mental sta tus changes affecting the patient's ability to attend to the test or other physical limitations that would prohibit t he patient's ability to participate in testing. Medication Reconciliation: Outpatient: Has the patient been taking medications as docu mented in the EMLR? YES: The patient has been taking medications as documented in the EMLR. Essential Medication List for Review used to co mplete this medication reconciliation. INCLUDED IN THIS LIST: Alphabetical list of act jarrod outpatient prescriptions dispensed from this [facility] (local) an d dispensed from another [place] or [facility] facility (remote) as well as inpatien t orders (local, pending and active), local clinic medications, locally documented non-VA medications, and local prescriptions that have or been discontinued in the past 90 days. - All changes in medications, including all non -VA/Herbal/OTC medications were entered into CPRS. - If there were any medications the patient fercho uld no longer take, they were discontinued. - The patient/caregiver was instructed to updat e this list, discard old lists, and take this list to the next appointme nt, whether with a VA or non-VA provider. /rajesh/ PURNIMA ESTRADA OD STAFF SALON SHAMPOO ASSISTANT Signed: 12/13/2021 10:59
--- OUTSIDE RECORDS SUMMARY | 2022-05-27 20:44 | XMS_ITS | Encounter Summary ---
:1945 Author Organization Department of [facility] rs Address [address] [place] [id number] Support Name Relationship Address Phone MAURA COELHO Unavailable [address] [place] [address] MAURA COELHO Unavailable [address] [facility] [place] [address] GISELLE COELHO Unavailable [address] [place] [address] Insurance Providers: All historical and current Section [...] [facility]are HEALTH NEW MEDICARE MCR Apr 17, [id number] [phone] Lauren SEVILLA PATIENT [facility] ([facility]) 2013 [id number] [facility] ([facility]) HEALTH NEW MEDICARE MCR Apr 17, [id number] [phone] Lauren SEVILLA PATIENT [facility] ([facility]) 2012 9 [id number] 4 [facility] ([facility]) Selected Encounter This section includes the information on record at [place] for the Encounter. Date/Time Encounter Type Encounter Reason Provider Source Description Dec 13, 2021 CMPTR OPHTH IMG OPTOMETRY ICD-10-CM PURNIMA ESTRADA 11:30 AM OPTIC NERVE H40.1221 E Low-tension glaucoma, left eye, mild stage with Provider Comments: Low-Tension Glaucoma,Mild, Left Eye IHE Encounter Template Text not used by VA Assessments - Encounter Diagnoses This section includes the primary and secondary diagnoses documented for the Encounter. Date/Time Primary/Secondary Diagnosis Name Provider Source Diagnosis Dec 13, 2021 PRIMARY Low-tension PURNIMA ESTRADA [place] [facility] [place] 11:00 AM glaucoma, left E [place] [facility] eye, mild stage Plan of Treatment: Future Appointments (+ 6 months) and Future Tests (+/- 45 days) The Plan of Treatment section includes future care activities for the patient from all [place] treatmentfacilities. This section includes future appointments and future orders which are active, pending orscheduled.Future Appointments This section includes appointments that were scheduled to occur 6 months from the date of the Encounter, up to a maximum of 20 appointments. The data comes from all [place] treatment facilities. Appointment Date/Time Appointment Type Appointment Facili ty Name May 08, 2022 03:00 PM AM[place]ULATORY [place]ICINE [place] [facility] Social History: Smoking Status (Most current) and Tobacco Use (All prior to encounter date) This section includes the most current, and the historical, smoking and tobacco-related health factors from the [place] facility where the Encounter took place.Current Smoking Status This section includes the most current smoking, or tobacco-related health factor, from the [place] facility where the Encounter took place. Date/Time Current Smoking Status Comment Facility Jul 31, 2021 09:41 AM VA-TOBACCO FORMER USER [facility] WSTRN [facility] Tobacco Use History This section includes a history of the smoking, or tobacco- related health factors, that were collected on or before the date of the Encounter. The data comes from the [place] facility where the Encounter took place. Date/Time Smoking Status/Tobacco Comment Facility Use Jul 31, 2021 09:41 [place]-TOBACCO QUIT 15 YRS OR [place] [facility] [place] AM [place] [facility] Jun 29, 2020 11:00 VA-TOBACCO FORMER USER [place] [facility] [place] [facility] Jun 29, 2020 11:00 VA-TOBACCO QUIT 15 YRS OR [place] [facility] [facility] Feb 10, 2019 10:14 VA-TOBACCO FORMER USER [place] [facility] Feb 10, 2019 10:14 [place]-TOBACCO QUIT 15 YRS OR [place] [facility] [place] AM [place] [facility] Nov 27, 2017 11:12 QUIT TOBACCO USE > 7 [place] [facility] AM YEARS AGO [place] [facility] Nov 05, 2016 11:01 QUIT TOBACCO USE > 7 [facility] WSTRN AM YEARS AGO [place] [facility] Sep 17, 2015 01:03 QUIT TOBACCO USE > 7 [facility]GO [facility] Feb 24, 2005 10:09 HISTORY OF SMOKING [facility] May 28, 2004 08:08 QUIT TOBACCO USE > 7 VA CNTR[facility] WSTRN AM YEARS AGO [place] [facility] Nov 27, 2003 01:12 HISTORY OF SMOKING [facility] W STRN PM [place] [facility] Mar 15, 2003 02:03 QUIT TOBACCO USE 1-7 [facility] Aug 24, 2002 11:07 HISTORY OF SMOKING [facility] Feb 11, 2002 11:35 QUIT TOBACCO USE 1-7 [facility] May 21, 2001 01:11 HISTORY OF SMOKING [facility] W STRN PM quit 5 years ago [facility] Encounter Notes: All associated encounter notes This section contains the clinical notes associated to the Encounter. Date/Time Encounter Note(s) Provider Source Dec 13, 2021 11:02 OPTOMETRY NOTE: PURNIMA ESTRADA RN, AM LOCAL TITLE: OPTOMETRY NOTE(T) [facility] STANDARD TITLE: OPTOMETRY NOTE DATE OF NOTE: DEC 13, 2021@11:02 ENTRY DATE: DEC 13, 2021@11:02:03 AUTHOR: PURNIMA ESTRADA EXP COSIGNER: URGENCY: STATUS: COMPLETED Results were viewed and clin ical findings were reviewed with student architecture intern and patient and results are in this note. Assessment and plan are reasonable. History of stable low-tension glaucoma OD and gl aucoma suspect OS. /rajesh/ PURNIMA ESTRADA OD STAFF CARBON BLOCKS PRESS OPERATOR Signed: 12/13/2021 11:02 Dec 13, 2021 11:00 OPTOMETRY NOTE: PURNIMA ESTRADA RN AM LOCAL TITLE: OPTOMETRY NOTE(T) [facility] STANDARD TITLE: OPTOMETRY NOTE DATE OF NOTE: DEC 13, 2021@11:00 ENTRY DATE: DEC 13, 2021@11:00:45 AUTHOR: PURNIMA ESTRADA EXP COSIGNER: URGENCY: STATUS: COMPLETED I saw this patient in conjunction with the stude nt and agree to the stated findings and plan after reviewing both history a nd repeating benitez elements of physical exam. Patient presents for 6-month foll ow-up well-known to me with history of low-tension glaucoma OS and risk glau coma suspect OD. He also has mildly visually significant combined cataract. No acute ocular disease was seen today. Condition is remaining stable. The patien t will return in 6 months or sooner if any problems arise. /rajesh/ PURNIMA ESTRADA OD STAFF CAR[employer]ON BLOCKS PRESS OPERATOR Signed: 12/13/2021 11:01 Dec 13, 2021 10:56 OPTOMETRY CONSULT: PURNIMA ESTRADA [place] [facility] TITLE: CONSULT REPORT/OPTOMETRY/SEAN(T ) [facility] STANDARD TITLE: OPTOMETRY CONSULT DATE OF NOTE: DEC 13, 2021@10:56 ENTRY DATE: DEC 13, 2021@10:56:37 AUTHOR: PURNIMA ESTRADA EXP COSIGNER: URGENCY: STATUS: COMPLETED Active Problems: Active Problem Cancer of prostate D07.5 05/06/2016 CLIFF MORENO Sciatica D07.5 09/17/2015 APOORVA MORENO Benign essential hypertension (SNOM 01/06/2017 S JAVIER-MOISES ROSADO Hypogonadism 253.4 06/28/2013 APOORVA MORENO Screening for Malignant Neoplasms o 06/14/2012 V APOORVA NAJERA Hearing loss * (ICD-9-CM 389.9) 389 12/03/2009 W PAIGE GARCIA Tinnitus * (ICD-9-CM 388.30) 388.30 12/03/2009 W PAIGE GARCIA Chronic sinusitis (ICD-9-CM 473.9) 12/03/2009 WO PAIGE MORENO Impaired FASTING Glucose (ICD-9-CM 12/16/2007 WO PAIGE MORENO Hyperlipidemia * (ICD-9-CM 272.4) 2 12/16/2007 W PAIGE GARCIA Allergic rhinitis * (ICD-9-CM 477.9 11/27/2005 R AHEB,EDE Diverticulitis, Colonic * (ICD-9-CM 08/22/2010 R AHEB,EDE Hypertrophy (Benign) of Prostate wi 08/26/2012 APOORVA CAMARENA GERD * (ICD-9-CM 530.81) 530.81 02/24/2005 PAIGE CAMACHO Insomnia * (ICD-9-CM 780.52) 780.52 03/15/2003 W PAIGE GARCIA 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 O: Neuroretinal rim and nerve fiber layer thickn ess OCT was run by maintenance technician. A: Scans are remaining essentially stable from p rior scans. Glaucoma is remaining stable OS. P: Follow-up is scheduled for today. /rajesh/ PURNIMA ESTRADA OD STAFF CAR[employer] BLOCKS PRESS OPERATOR Signed: 12/13/2021 10:57
--- OUTSIDE RECORDS SUMMARY | 2022-05-27 20:44 | XMS_ITS | Encounter Summary ---
:1945 Author Organization Department of [facility] rs Address [address] [place] [address] Support Name Relationship Address Phone MAURA COELHO Unavailable [address] [place] [address] MAURA COELHO Unavailable [address] [place] [address] GISELLE COELHO Unavailable [address] [place] [address] Insurance Providers: All historical and current Section [...] Hare HEALTH NEW MEDICARE MCR Apr 17, [id number] [phone] Lauren SEVILLA PATIENT [facility] ([facility]) 2012 [id number] [facility] HEALTH NEW MEDICARE MCR Apr 17, [id number] [phone] Lauren SEVILLA PATIENT [facility] (R) 2012 9 35 4 [facility] Selected Encounter This section includes the information on record at [place] for the Encounter. Date/Time Encounter Type Encounter Reason Provider Source Description Dec 13, 2021 VISUAL FIELD OPTOMETRY ICD-10-CM PURNIMA ESTRADA 10:00 AM EXAMINATION(S) H40.1221 E Low-tension glaucoma, left eye, mild stage with Provider Comments: Low-Tension Glaucoma,Mild, Left Eye IHE Encounter Template Text not used by [facility] Assessments - Encounter Diagnoses This section includes the primary and secondary diagnoses documented for the Encounter. Date/Time Primary/Secondary Diagnosis Name Provider Source Diagnosis Dec 13, 2021 PRIMARY Low-tension PURNIMA ESTRADA [place] [facility] 10:59 AM glaucoma, left E [place] [facility] eye, mild stage Plan of Treatment: Future Appointments (+ 6 months) and Future Tests (+/- 45 days) The Plan of Treatment section includes future care activities for the patient from all [place] treatmentfacilities. This section includes future appointments and future orders which are active, pending orscheduled.Future Appointments This section includes appointments that were scheduled to occur 6 months from the date of the Encounter, up to a maximum of 20 appointments. The data comes from all [place] treatment facilities. Appointment Date/Time Appointment Type Appointment Facili ty Name May 08, 2022 03:00 PM AM[facility]UL[facility] [place] [facility] Social History: Smoking Status (Most current) and Tobacco Use (All prior to encounter date) This section includes the most current, and the historical, smoking and tobacco-related health factors from the [place] facility where the Encounter took place.Current Smoking Status This section includes the most current smoking, or tobacco-related health factor, from the [place] facility where the Encounter took place. Date/Time Current Smoking Status Comment Facility Jul 31, 2021 09:41 AM VA-TOBACCO FORMER USER [facility] Tobacco Use History This section includes a history of the smoking, or tobacco- related health factors, that were collected on or before the date of the Encounter. The data comes from the [place] facility where the Encounter took place. Date/Time Smoking Status/Tobacco Comment Facility Use Jul 31, 2021 09:41 [place]-TOBACCO QUIT 15 YRS OR [place] [facility] AM [place] [facility] Jun 29, 2020 11:00 VA-TOBACCO FORMER USER [place] CNT [facility] WSTR[facility] AM [place] [facility] Jun 29, 2020 11:00 VA-TOBACCO QUIT 15 YRS OR [place] [facility] AM MORE [place] [facility] Feb 10, 2019 10:14 VA-TOBACCO FORMER USER [place] CNT RL WSTRN AM [place] [facility] Feb 10, 2019 10:14 VT-TOBACCO QUIT 15 YRS OR [place] [facility] AM MORE [place] [facility] Nov 27, 2017 11:12 QUIT TOBACCO USE > 7 [place] [facility] AM YEARS AGO [place] [facility] Nov 05, 2016 11:01 QUIT TOBACCO USE > 7 [facility] AM YEARS AGO [place] [facility] Sep 17, 2015 01:03 QUIT TOBACCO USE > 7 [facility] PM YEARS AGO stopped 20 years ago [place] [facility] Feb 24, 2005 10:09 HISTORY OF SMOKING [facility] AM [place] [facility] May 28, 2004 08:08 QUIT TOBACCO USE > 7 [facility] Nov 27, 2003 01:12 HISTORY OF SMOKING [facility] PM [place] [facility] Mar 15, 2003 02:03 QUIT TOBACCO USE 1-7 [facility] PM YEARS AGO [place] [facility] Aug 24, 2002 11:07 H[facility] OF SMOKING [facility] Feb 11, 2002 11:35 QUIT TOBACCO USE 1-7 [facility] AM [facility] May [facility], 2001 01:11 HISTORY OF SMOKING [facility] PM quit 5 years ago [facility] Encounter Notes: All associated encounter notes This section contains the clinical notes associated to the Encounter. Date/Time Encounter Note(s) Provider Source Dec 13, 2021 10:46 OPTOMETRY CONSULT: PURNIMA ESTRADA [facility] AM LOCAL TITLE: CONSULT REPORT/OPTOMETRY/SEAN(Shashank ) [facility] STANDARD TITLE: OPTOMETRY CONSULT DATE OF NOTE: DEC 13, 2021@10:46 ENTRY DATE: DEC 13, 2021@10:46:10 AUTHOR: PURNIMA ESTRADA EXP COSIGNER: URGENCY: STATUS: [...] SULFONAMIDE/RELATED ANTIMICROBIALS, A UGMENTIN S: Patient with glaucoma OS and glaucoma suspect OD is in for repeat threshold cohen. O: Miranda fast 242 cohen were run by dye lab technician. A: OD exhibited inferior depression probably mor e medial related and OS exhibited low test reliability with a ge neralized reduction in sensitivity and reasonably stable inferior nasal depression from prior cohen. Glaucoma would be considered stable. P: Follow-up is scheduled for today. /rajesh/ PURNIMA ESTRADA OD STAFF REHABILITATION DIRECTOR Signed: 12/13/2021 10:56
--- OUTSIDE RECORDS SUMMARY | 2022-05-27 20:45 | XMS_ITS ---
:1945 Author Organization Department [facility] rs Address [address] [place] [address] Support Name Relationship Address Phone MAURA COELHO Unavailable [address] [place] [address] MAURA COELHO Unavailable [address] [facility] [place] [address] GISELLE COELHO Unavailable [address] [facility] [place] [address] Insurance Providers: All historical and current Section [...] Hare HEALTH NEW MEDICARE MCR Apr 17, [id number] [phone] Lauren SEVILLA PATIENT [facility] (WN) 2013 009 [id number] [facility] ([facility]) HEALTH NEW MEDICARE MCR Apr 17, [id number] [phone] Lauren SEVILLA PATIENT [facility] (W[facility]) 2013 9 35 4 [facility] ([facility]) Selected Encounter This section includes the information on record at [place] for the Encounter. Date/Time Encounter Type Encounter Reason Provider Source Description Nov 07, 2021 OFFICE O/P EST PRIMARY ICD-10-CM D07.5 03:00 PM LOW 20-29 MIN CARE/MEDICINE Carcinoma in RADHA F situ of prostate with Provider Comments: Cancer of prostate ([facility] [id number]) IHE Encounter Template Text not used by VA Assessments - Encounter Diagnoses This section includes the primary and secondary diagnoses documented for the Encounter. 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 This section includes future appointments and future orders which are active, pending orscheduled.Future Appointments This section includes appointments that were scheduled to occur 6 months from the date of the Encounter, up to a maximum of 20 appointments. The data comes from all [place] treatment facilities. Appointment Date/Time Appointment Type Appointment Facili ty Name Dec 13, 2021 10:00 AM [facility] Dec 13, 2021 10:30 AM [facility] Dec 13, 2021 11:30 AM [facility] May 08, 2022 03:00 PM [facility] Vital Signs: All taken on the encounter date This section contains inpatient and outpatient Vital Signs collected on the date of the Encounter. Date/Time Temperature Pulse Blood Respiratory SP02 Pain Height Weight Roly dy Source Pressure Rate Mass Index Nov 07 97.2 F 71 140/80 20 /min 6 % 0 67 in 198 lb 31 [place] 2021 02:59 /min mm[Hg] [facility] Social History: Smoking Status (Most current) and Tobacco Use (All prior to encounter date) This section includes the most current, and the historical, smoking and tobacco-related health factors from the [place] facility where the Encounter took place.Current Smoking Status This section includes the most current smoking, or tobacco-related health factor, from the [place] facility where the Encounter took place. Date/Time Current Smoking Status [facility] Facility Jul 31, 2021 09:41 AM [place]-TOBACCO FORMER USER [facility] Tobacco Use History This section includes a history of the smoking, or tobacco- related health factors, that were collected on or before the date of the Encounter. The data comes from the [place] facility where the Encounter took place. Date/Time Smoking Status/Tobacco Comment Facility Use Jul 31, 2021 09:41 VA-TOBACCO QUIT 15 YRS OR [facility] AM [place] [facility] Jun 29, 2020 11:00 VA-TOBACCO FORMER USER VA CNT RL WSTRN AM [place] [facility] Jun 29, 2020 11:00 VA-TOBACCO QUIT 15 YRS OR [facility] AM [place] [facility] Feb 10, 2019 10:14 VA-TOBACCO FORMER USER VA CNT RL WSTRN AM [place] [facility] Feb 10, 2019 10:14 VA-TOBACCO QUIT 15 YRS OR [facility] AM [place] [facility] Nov 27, 2017 11:12 QUIT TOBACCO USE > 7 [facility] AM YEARS AGO [place] [facility] Nov 05, 2016 11:01 QUIT TOBACCO USE > 7 [facility] AM YEARS AGO [place] [facility] Sep 17, 2015 01:03 QUIT TOBACCO USE > 7 [facility] PM YEARS AGO stopped 20 [facility], 2005 10:09 HISTORY OF SMOKING [facility] AM [place] [facility] May 28, 2004 08:08 QUIT TOBACCO USE > 7 [facility] AM YEARS AGO [place] [facility] Nov 27, 2003 01:12 HISTORY OF SMOKING [facility] W [facility] PM [place] [facility] Mar 15, 2003 02:03 QUIT TOBACCO USE 1-7 [facility] PM YEARS AGO [place] [facility] Aug 24, 2002 11:07 HISTORY OF SMOKING [facility] AM [place] [facility] Feb 11, 2002 11:35 QUIT TOBACCO USE 1-7 [facility] May 21, 2001 01:11 HISTORY OF SMOKING [facility] PM quit 5 years ago [facility] Encounter Notes: All associated encounter notes This section contains the clinical notes associated to the Encounter. Date/Time Encounter Note(s) Provider Source Nov 08, 2021 02:35 PREVENTIVE MEDICINE NURSING NOTE: ANTONY ALVARADO [facility] PM LOCAL TITLE: CLINICAL REMINDERS/NURSING R E [place] [facility] STANDARD TITLE: PREVENTIVE MEDICINE NURSING NOTE DATE OF NOTE: NOV 08, 2021@14:35 ENTRY DATE: NOV 08, 2021@14:35:36 AUTHOR: GISSELL ALVARADO EXP COSIGNER: URGENCY: STATUS: COMPLETED Lipid Screening: has documentation of outside lipid prof ile results. Outside Location and date. Date: September 18, 2021 Location: Outside Healthcare Provider Total Cholesterol result: 183 Triglycerides result: 78 HDL result: 50 LDL result: 118 /es/ GISSELL ALVARADO BRACELET MAKER NOVELTY GISSELL ALVARADO BRACELET MAKER NOVELTY Signed: 11/08/2021 14:37 Nov 07, 2021 03:39 PHYSICIAN ADHESIVE SPRAYER NOTE: APOORVA LEE CNTRL WSTRN LOCAL TITLE: PA ABBY F [place] [facility] STANDARD TITLE: PHYSICIAN ADHESIVE SPRAYER NOTE DATE OF NOTE: NOV 07, 2021@15:39 ENTRY DATE: NOV 07, 2021@15:39:56 AUTHOR: APOORVA LEE EXP COSIGNER: URGENCY: STATUS: COMPLETED CC/HPI: 75 year old MALE here in follow-up for; prostate cancer, ED and secondary hypogonasism, followed in [facility] by Dr Ayers, brings outside, recent labs. I renew test osterone nad cialis. hearing loss no change Hyperlipidemia, outside liver and lipids are fin e, renew statin Htn, just @ goal renew hctz. Review of systems: Patient reports no [facility], nor in meds or any admissions. Active problems - Computerized Problem List is t he source for the followin. Cancer of prostate 2. Sciatica 3. Benign essential hypertension (SNOMED CT 120 1005) 4. Hypogonadism 5. Screening for Malignant Neoplasms of colon N o polyps or inflammatory mucosal changes Minimal scattered diverticulosis throughout the entire colon FU in 10 years if asymptomatic - 2021 6. Hearing loss * 7. Tinnitus * 8. Chronic sinusitis 9. Impaired FASTING Glucose 10. Hyperlipidemia * 11. Allergic rhinitis * 12. Diverticulitis, Colonic * 13. Hypertrophy (Benign) of Prostate without Uri nary obstruction TURP 10/2101 Dr Stephens at [facility]. 14. GERD * 15. Insomnia * 16. Herpes Genitalis h/o genital herpes -- no re currence in several years (active from 1979 - 1984) 17. DIAPHRAGMATIC HERNIA 18. CALCULUS OF KIDNEY 19. former smoker VA and Non VA meds were reconciled with the macrina ent who left with a corrected copy. See medication page for details. Active and Recently Outpatient Medicatio ns (excluding Supplies): Active Outpatient Medications Status 1) ACYCLOVIR 800MG TAB TAKE ONE TABLET BY MOUTH THREE ACTIVE TIMES A DAY FOR TWO DAYS EACH OCCURRENCE 2) ALPROSTADIL 1000MCG URETHRAL SUPP INSERT 1 AC TIVE SUPPOSITORY INTRAURETHRAL ONCE A WEEK NEEDED FOR ERECTILE DYSFUNCTION 3) ALPROSTADIL 40MCG/CARTRIDGE INJ SYSTEM INJECT 2.5 MCG HOLD INTO THE PENIS THREE TIMES A WEEK [...] MOUTH ACTIVE AT BEDTIME NEEDED FOR SLEEP Pending Outpatient Medications Status 1) ACYCLOVIR 800MG TAB TAKE ONE TABLET BY MOUTH THREE PENDING TIMES A DAY FOR TWO DAYS EACH OCCURRENCE 2) HYDROCHLOROTHIAZIDE 25MG TAB TAKE ONE TABLET BY MOUTH PENDING EVERY MORNING TO PREVENT FLUID/CONTROL BLOOD PRESSURE 3) SIMVASTATIN 40MG TAB TAKE ONE-HALF TABLET BY MOUTH AT PENDING BEDTIME 4) TADALAFIL 20MG TAB TAKE ONE TABLET BY MOUTH A S PENDING NEEDED FOR E.D. (TAKE DIRECTED) 5) TESTOSTERONE 4MG/24HR PATCH APPLY 1 PATCH TO SKIN AT PENDING BEDTIME DIRECTED BY PRESCRIBER 6) ZOLPIDEM TARTRATE 10MG TAB TAKE ONE TABLET BY MOUTH PENDING AT BEDTIME NEEDED FOR SLEEP Active Non-VA Medications Status 1) Non-VA ASPIRIN 81MG EC TAB 81MG BY MOUTH JULIAN Y ACTIVE 2) Non-VA LABETALOL HCL 100MG TAB 100MG BY MOUTH TWICE ACTIVE DAILY 18 Total Medications 97.2 F [36.2 C] (11/07/2021 14:59) 71 (11/07/2021 14:59) 20 (11/07/2021 14:59) 140/80 (11/07/2021 14:59) 0 (11/07/2021 14:59) 67 in [170.2 cm] (11/07/2021 14:59) 198 lb [89.81 kg] (11/07/2021 14:59) BMI: 31.1 Neuro: Alert and oriented times three, grossly n onfocal, nasolabial folds intact. I cancel labs planned for this visit, We will co llect labs here at our next 6 month visit. /rajesh/ Apoorva Lee PA-C STAFF PHYSICIAN ADHESIVE SPRAYER Signed: 11/07/2021 15:44 Nov 07, 2021 03:03 PREVENTIVE MEDICINE NURSING NOTE: THANG WAYNE CNTRL WSTRN PM LOCAL TITLE: CLINICAL REMINDERS/NURSING [place] [facility] STANDARD TITLE: PREVENTIVE MEDICINE NURSING NOTE DATE OF NOTE: NOV 07, 2021@15:03 ENTRY DATE: NOV 07, 2021@15:03:21 AUTHOR: ROSANA,THANG EXP COSIGNER: URGENCY: STATUS: COMPLETED COVID-19 Immunization: Moderna COVID-19 Vaccine given previously Patient received a prior dose of the Moderna [place] VID-19 Vaccine. Date: July 14, 2021 Series: Series 3 Location: [facility] // Thang Wayne, [facility] [employer] REHAB CARE ASSISTANT,PRIMARY CARE Signed: 11/07/2021 15:05
--- OUTSIDE RECORDS SUMMARY | 2022-05-27 20:45 | XMS_ITS | Encounter Summary ---
:1945 Author Organization Department of [facility] rs Address [address] [place] [address] Support Name Relationship Address Phone MAURA COELHO Unavailable [address] [place] [address] MAURA COELHO Unavailable [address] [place] [address] GISELLE COELHO Unavailable [address] [place] [address] Insurance Providers: All historical and current Section [...] Hare HEALTH NEW MEDICARE MCR Apr 17, [id number] [phone] Lauren SEVILLA PATIENT [facility] ([facility]) 2012 [id number] [facility] ([facility] HEALTH NEW MEDICARE MCR Apr 17, [id number] [phone] Lauren SEVILLA PATIENT [facility] ([facility]) 2012 9 35 4 [facility] ([facility]) Selected Encounter This section includes the information on record at [place] for the Encounter. Date/Time Encounter Type Encounter Description Reason Provider Source Sep 23, 2021 08:59 Outpatient Encounter TELEPHONE TRIAGE AM IHE Encounter Template Text not used by [place] Plan of Treatment: Future Appointments (+ 6 [...] 20 appointments. The data comes from all [place] treatment facilities. Appointment Date/Time Appointment Type Appointment Brii kasandra Name Nov 07, 2021 03:00 PM AMBULATORY - MEDICINE [place] [facility] [place] [facility] Dec 13, 2021 10:00 AM AMBULATORY MEDICINE [facility] Dec 13, 2021 10:30 AM AMBULATORY MEDICINE [place] [facility] Dec 13, 2021 11:30 AM AMBULATORY MEDICINE [place] [facility] Social History: Smoking Status (Most current) and Tobacco Use (All prior to encounter date) This section includes the most current, and the historical, smoking and tobacco-related health factors from the [place] facility where the Encounter took place.Current Smoking Status This section includes the most current smoking, or tobacco-related health factor, from the [place] facility where the Encounter took place. Date/Time Current Smoking Status Comment Facility Jul 31, 2021 09:41 AM VA-TOBACCO FORMER USER [place] CN[facility] Tobacco Use History This section includes a history of the smoking, or tobacco- related health factors, that were collected on or before the date of the Encounter. The data comes from the [place] facility where the Encounter took place. Date/Time Smoking Status/Tobacco Comment Facility Use Jul 31, 2021 09:41 VA-TOBACCO QUIT 15 YRS OR VA CN[facility]STRN AM [place] [facility] Jun 29, 2020 11:00 VA-TOBACCO FORMER USER MT CNT RL WSTRN AM [place] [facility] Jun 29, 2020 11:00 VA-TOBACCO QUIT 15 YRS OR VA [facility] AM [place] [facility] Feb 10, 2019 10:14 VA-TOBACCO FORMER USER VA CNT RL WSTRN AM [place] [facility] Feb 10, 2019 10:14 VA-TOBACCO QUIT 15 YRS OR VA [facility] AM [place] [facility] Nov 27, 2017 11:12 QUIT TOBACCO USE > 7 VA [facility]N AM YEARS AGO [place] [facility] Nov 05, 2016 11:01 QUIT TOBACCO USE > 7 VA [facility] AM YEARS AGO [place] [facility] Sep 17, 2015 01:03 QUIT TOBACCO USE > 7 VA [facility] PM YEARS AGO stopped 20 years ago [facility] Feb 24, 2005 10:09 HISTORY OF SMOKING [facility], 2004 08:08 QUIT TOBACCO USE > 7 [facility] AM YEARS AGO [place] [facility] Nov 27, 2003 01:12 HISTORY OF SMOKING [facility] Mar 15, 2003 02:03 QUIT TOBACCO USE 1-7 [facility] PM YE[facility] A[facility] Aug 24, 2002 11:07 HISTORY OF SMOKING [facility] Feb 11, 2002 11:35 QUIT TOBACCO USE 1-7 [facility] May 21, 2001 01:11 HISTORY OF SMOKING [facility] W STR[facility] PM quit 5 years ago [facility] Encounter Notes: All associated encounter notes This section contains the clinical notes associated to the Encounter. Date/Time Encounter Note(s) Provider Source Sep 23, 2021 08:59 AM NURSING TELEPHONE ENCOUNTER TRIAGE NOTE: PAL SMITH [place] [facility] LOCAL TITLE: VISN 1 CLINICAL CONTACT CENTER [facility] STANDARD TITLE: NURSING TELEPHONE ENCOUNTER TRIA GE NOTE DATE OF NOTE: SEP 23, 2021@08:59:58 ENTRY DATE: SEP 23, 2021@09:02 AUTHOR: PAL KNIGHT EXP COSIGNER: URGENCY: STATUS: COMPLETED The patient, HANH COELHO ([id number] ) called the call center. The following identifiers were used to verify th is patient: SSN. Contact Type of call: ADMINISTRATIVE. Caller Response: ADM CALL RESOLVED Caller Area: [facility] Provider Info: LOCAL - [facility] ([phone]) PACT: NO PACT 3 (Focus: Primary Care Only) Primary Care Provider: Anupam Sharp Upsetter Setter Up: Sandrine Garrison PHONE:[phone] Clinical Associate: Scot Zapata [facility] [phone] Cut Off Saw Operator: Lucinda Lugo Clinical POC: Upsetter Setter Up Kevin Garrison i PHONE:[phone] Administrative POC: Cut Off Saw Operator Lucinda Lugo Author: PAL KNIGHT Comments: VET CALLED REQ TO R/S HIS CXC APPT W PCP . AGENT ATTEMPTED TO ASSIST BUT HE REQ THE TIME FROM 10-1PM TO SCD APPT. THAT T CARMELO AGENT IS RESTRICTED TO SCD. KINDLY ASSIST W REQ. Evaluation/Management Code: HC PRO PHONE CALL 5- 10 MIN ([phone]). Starting at: 09/23/2021 @ 8:59:58 AM Ending at: 09/23/2021 @ 9:01:11 AM Length: 1 minutes. Chief Complaint: Not applicable to call. Class Code: Other specified counseling. Patient's Email Address: [email or web address] /[email or web address]/ PAL KNIGHT ADVANCED WEDDING DESIGNER Signed: 09/23/2021 09:02 Receipt Acknowledged By: * AWAITING SIGNATURE * LUCINDA LUGO
--- OUTSIDE RECORDS SUMMARY | 2022-05-27 20:45 | XMS_ITS ---
:1945 Author Organization Department [facility] rs Address [address] [place] [address] Support Name Relationship Address Phone MAURA COELHO Unavailable [address] [place] [address] MAURA COELHO Unavailable [address] [place] [address] GISELLE COELHO Unavailable [address] [facility] [place] [address] Insurance Providers: All historical and current Section [...] Hare HEALTH NEW MEDICARE MCR Apr 17, [id number] [phone] Lauren SEVILLA PATIENT [facility] (WN) 2012 [id number] [facility] ([facility]) HEALTH NEW MEDICARE MCR Apr 17, [id number] [phone] Lauren SEVILLA PATIENT [facility] (WNR) 2012 9 35 4 [facility] ([facility]) Selected Encounter This section includes the information on record at [place] for the Encounter. Date/Time Encounter Type Encounter Description Reason Provider Source Sep 19, 2021 01:44 Outpatient Encounter PRIMARY CARE/MEDICINE PM IHE Encounter Template Text not used by [place] Plan of Treatment: Future Appointments (+ 6 [...] 20 appointments. The data comes from all [place] treatment facilities. Appointment Date/Time Appointment Type Appointment Leonid slaughter Name Nov 07, 2021 03:00 PM AMBULATORY - MEDICINE [place] [facility] [facility] Dec 13, 2021 10:00 AM AMBULATORY MEDICINE [place] [facility] Dec 13, 2021 10:30 AM [facility]ULAT[facility] MEDICINE [place] [facility] Dec 13, 2021 11:30 AM AMBULATORY MEDICINE [place] [facility] [facility] [facility] Social History: Smoking Status (Most current) and Tobacco Use (All prior to encounter date) This section includes the most current, and the historical, smoking and tobacco-related health factors from the [place] facility where the Encounter took place.Current Smoking Status This section includes the most current smoking, or tobacco-related health factor, from the [place] facility where the Encounter took place. Date/Time Current Smoking Status Comment Facility Jul 31, 2021 09:41 AM VA-TOBACCO FORMER USER [place] CNTR[place] [facility] Tobacco Use History This section includes a history of the smoking, or tobacco- related health factors, that were collected on or before the date of the Encounter. The data comes from the [place] facility where the Encounter took place. Date/Time Smoking Status/Tobacco Comment Facility Use Jul 31, 2021 09:41 VA-TOBACCO QUIT 15 YRS OR VA CNTRL [facility] [place] [facility] Jun 29, 2020 11:00 VA-TOBACCO FORMER USER [place] CNT [place] W[place] AM [place] [facility] Jun 29, 2020 11:00 VA-TOBACCO QUIT 15 YRS OR VA CNTRL W[place] AM [place] [facility] Feb 10, 2019 10:14 VA-TOBACCO FORMER USER [place] CNT RL [place] AM [place] [facility] Feb 10, 2019 10:14 VA-TOBACCO QUIT 15 YRS OR VA CNTRL W[place] AM [place] [facility] Nov 27, 2017 11:12 QUIT TOBACCO USE > 7 VA CNTRL W[facility]N AM YEARS AGO [place] [facility] Nov 05, 2016 11:01 QUIT TOBACCO USE > 7 VA CNTRL WSTRN AM YEARS AGO [place] [facility] Sep 17, 2015 01:03 QUIT TOBACCO USE > 7 VA CNTRL WSTRN PM YEARS AGO stopped 20 years ago [place] [facility] Feb 24, 2005 10:09 HISTORY OF SMOKING [facility]L W [place] AM [place] [facility] May 28, 2004 08:08 QUIT TOBACCO USE > 7 VA CNTRL W[facility]N AM YEARS AGO [place] [facility] Nov 27, 2003 01:12 HISTORY OF SMOKING VA CN[facility]L W STR[facility] PM [place] [facility] Mar 15, 2003 02:03 QUIT TOBACCO USE 1-7 VA CNTRL WSTRN PM YEARS AGO [place] [facility] Aug 24, 2002 11:07 HISTORY OF SMOKING VA CN[facility]L W [place] AM [place] [facility] Feb 11, 2002 11:35 QUIT TOBACCO USE 1-7 VA CNTRL WSTRN AM YEARS AGO [place] [facility] May 21, 2001 01:11 HISTORY OF SMOKING VA CNTRL W STRN PM quit 5 years ago [facility] Encounter Notes: All associated encounter notes This section contains the clinical notes associated to the Encounter. Date/Time Encounter Note(s) Provider Source Sep 19, 2021 01:44 ADMINISTRATIVE NOTE: JUSTIN GIBBS [place] CN TRL WSTRN PM LOCAL TITLE: ADMINISTRATIVE NOTE M [facility] STANDARD TITLE: ADMINISTRATIVE NOTE DATE OF NOTE: SEP 19, 2021@13:44 ENTRY DATE: SEP 19, 2021@13:44:31 AUTHOR: JUSTIN GIBBS EXP COSIGNER: URGENCY: STATUS: COMPLETED AMSA called and left msg for Kensal to c/b to resched 10/11/2021 Routine PACT 3 PCP appt. Appt cxl letter mailed to Kensal. /rajesh/ JUSTIN GIBBS ADVANCED SIZE WORKER Signed: 09/19/2021 13:45
--- OUTSIDE RECORDS SUMMARY | 2022-05-27 20:46 | XMS_ITS | Encounter Summary ---
:1945 Author Organization Department [facility] rs Address [address] [place] [address] Support Name Relationship Address Phone MAURA COELHO Unavailable [address] [place] [address] MAURA COELHO Unavailable [address] [facility] [place] [address] GISELLE COELHO Unavailable [address] [facility] [place] [address] Insurance Providers: All historical and current Section [...] Hare HEALTH NEW MEDICARE MCR Apr 17, [id number] [phone] Lauren SEVILLA PATIENT [facility] (WN) 2012 [id number] [facility] (WNR) HEALTH NEW MEDICARE MCR Apr 17, [id number] [phone] Lauren SEVILLA PATIENT [facility] (WNR) 2012 9 35 4 [facility] ([facility]) Selected Encounter This section includes the information on record at ID for the Encounter. Date/Time Encounter Type Encounter Description Reason Provider Source Sep 18, 2021 12:00 Outpatient Encounter EVENT (HISTORICAL) AM IHE Encounter Template Text not used by ID Plan of Treatment: Future Appointments (+ 6 [...] 20 appointments. The data comes from all [place] treatment facilities. Appointment Date/Time Appointment Type Appointment Leonid slaughter Name Nov 07, 2021 03:00 PM AMBULATORY - MEDICINE [place] [facility] Dec 13, 2021 10:00 AM AMBULATORY MEDICINE [place]L [place] [facility] Dec 13, 2021 10:30 AM AMBULATORY MEDICINE ID [facility]L W[facility]N [facility] Dec 13, 2021 11:30 AM AMBULATORY MEDICINE ID CNTRL WSTRN [facility] Social History: Smoking Status (Most current) and Tobacco Use (All prior to encounter date) This section includes the most current, and the historical, smoking and tobacco-related health factors from the [place] facility where the Encounter took place.Current Smoking Status This section includes the most current smoking, or tobacco-related health factor, from the [place] facility where the Encounter took place. Date/Time Current Smoking Status Comment Facility Jul 31, 2021 09:41 AM VA-TOBACCO FORMER USER ID CNTRL WSTRN [facility] Tobacco Use History This section includes a history of the smoking, or tobacco- related health factors, that were collected on or before the date of the Encounter. The data comes from the [place] facility where the Encounter took place. Date/Time Smoking Status/Tobacco Comment Facility Use Jul 31, 2021 09:41 VA-TOBACCO QUIT 15 YRS OR VA CNTRL W[facility]N AM [place] [facility] Jun 29, 2020 11:00 VA-TOBACCO FORMER USER [place] CNT RL WSTRN AM [place] [facility] Jun 29, 2020 11:00 VA-TOBACCO QUIT 15 YRS OR VA CNTRL WSTRN AM MORE [place] [facility] Feb 10, 2019 10:14 VA-TOBACCO FORMER USER [place] CNT RL WSTRN [place] [facility] Feb 10, 2019 10:14 VA-TOBACCO QUIT 15 YRS OR VA CNTRL WSTRN AM MORE [place] [facility] Nov 27, 2017 11:12 QUIT TOBACCO USE > 7 VA CNTRL WSTRN AM YEARS AGO [place] [facility] Nov 05, 2016 11:01 QUIT TOBACCO USE > 7 VA CNTRL WSTRN AM YEARS AGO [place] [facility] Sep 17, 2015 01:03 QUIT TOBACCO USE > 7 VA CNTRL WSTRN PM YEARS AGO stopped 20 years ago [facility] Feb 24, 2005 10:09 HISTORY OF SMOKING VA CNTRL W STRN AM [facility] May 28, 2004 08:08 QUIT TOBACCO USE > 7 VA [facility] Nov 27, 2003 01:12 HISTORY OF SMOKING VA CNTRL W STRN PM [facility] Mar 15, 2003 02:03 QUIT TOBACCO USE 1-7 VA CNTRL WSTRN PM YEARS AGO [facility] Aug 24, 2002 11:07 HISTORY OF SMOKING VA CNTRL W STRN AM [facility] Feb 11, 2002 11:35 QUIT TOBACCO USE 1-7 VA CNTRL WSTRN AM YEARS AGO [facility] May 21, 2001 01:11 HISTORY OF SMOKING VA CNTRL W STRN PM quit 5 years ago [facility]
--- OUTSIDE RECORDS SUMMARY | 2022-05-27 20:46 | XMS_ITS | Encounter Summary ---
:1945 Author Organization [facility] rs Address [address] [place] [address] Support Name Relationship Address Phone MAURA COELHO Unavailable [address] [facility] [place] [place] [address] MAURA COELHO Unavailable [address] [facility] [place] [address] GISELLE COELHO Unavailable [address] [place] [address] Insurance Providers: All historical and current Section [...] Hare HEALTH NEW MEDICARE MCR Apr 17, [id number] [phone] Lauren SEVILLA PATIENT [facility] ([facility]) 2012 [id number] 4 [facility] (WN) HEALTH NEW MEDICARE MCR Apr 17, [id number] [phone] Lauren SEVILLA PATIENT [facility] ([facility]) 2012 9 35 4 [facility] ([facility]) Selected Encounter This section includes the information on record at [place] for the Encounter. Date/Time Encounter Type Encounter Description Reason Provider Source Jul 14, 2021 12:00 Outpatient Encounter EVENT (HISTORICAL) AM [...] 20 appointments. The data comes from all [place] treatment facilities. Appointment Date/Time Appointment Type Appointment Facili ty Name Nov 07, 2021 03:00 PM [facility] Dec 13, 2021 10:00 AM [facility] Dec 13, 2021 10:30 AM [facility] Dec 13, 2021 11:30 AM [facility] Immunizations: All administered on the encounter date This section contains immunizations associated to the Encounter. Immunization Series Date Issued Reaction Comments COVID-19 (MODERNA), MRNA, LNP-S, PF, 100 3 Jul 14, 2021 MCG/0.5ML DOSE OR 50 MCG/0.25ML DOSE
--- OUTSIDE RECORDS SUMMARY | 2022-05-27 20:46 | XMS_ITS | Encounter Summary ---
:1945 Author Organization Department [facility] rs Address [address] [place] [address] Support Name Relationship Address Phone MAURA COELHO Unavailable [address] [place] [address] MAURA COELHO Unavailable [address] [facility] [place] [address] GISELLE COELHO Unavailable 20 [facility] [address] Insurance Providers: All historical and current Section [...] Hare HEALTH NEW MEDICARE MCR Apr 17, [id number] [phone] Lauren SEVILLA PATIENT [facility] ([facility]) 2012 [id number] [facility] (WN) HEALTH NEW MEDICARE MCR Apr 17, [id number] [phone] Lauren SEVILLA PATIENT [facility] (WNR) 2012 9 35 4 [facility] ([facility]) Selected Encounter This section includes the information on record at [place] for the Encounter. Date/Time Encounter Type Encounter Description Reason Provider Source Jun 25, 2021 09:55 Outpatient Encounter PRIMARY CARE/MEDICINE AM IHE Encounter Template Text not used [...] AMBULATORY - [facility] Dec 13, 2021 10:00 AM AMBULATORY MEDICINE ID [facility] Dec 13, 2021 10:30 AM AMBULATORY MEDICINE ID CNTRL WSTRN [facility] Dec 13, 2021 11:30 AM AMBULATORY MEDICINE ID CNTRL W[facility]N [facility] Social History: Smoking Status (Most current) [...] place. Date/Time Current Smoking Status Comment Facility Jun 29, 2020 11:00 AM VA-TOBACCO FORMER USER ID CNTRL WSTRN [facility] Tobacco Use History This section includes a history of the smoking, or tobacco- related health factors, that were collected on or before the date of the Encounter. The data comes from the [place] facility where the Encounter took place. Date/Time Smoking Status/Tobacco Comment Facility Use Jun 29, 2020 11:00 VA-TOBACCO QUIT 15 YRS OR VA CNTRL WSTRN AM [facility] Feb 10, 2019 10:14 VA-TOBACCO FORMER USER VA CNT RL WSTRN AM [facility] Feb 10, 2019 10:14 VA-TOBACCO QUIT 15 YRS OR VA CNTRL W[facility] AM [place] [facility] Nov 27, 2017 11:12 QUIT TOBACCO USE > 7 VA CNTRL WSTRN AM YEARS AGO [place] [facility] Nov 05, 2016 11:01 QUIT TOBACCO USE > 7 VA CNTRL WSTRN AM YEARS AGO [place] [facility] Sep 17, 2015 01:03 QUIT TOBACCO USE > 7 VA CNTRL WSTRN PM YEARS AGO stopped 20 years ago [facility] Feb 24, 2005 10:09 HISTORY OF SMOKING ID CNTRL W STRN AM [facility] May 28, 2004 08:08 QUIT TOBACCO USE > 7 VA CN[facility]L W[facility]N [facility] Nov 27, 2003 01:12 HISTORY OF SMOKING VA [facility] W [facility] Mar 15, 2003 02:03 QUIT TOBACCO USE 1-7 VA CNTRL WSTRN PM YEARS AGO [place] [facility] Aug 24, 2002 11:07 HISTORY OF SMOKING VA [facility]L W [facility] Feb 11, 2002 11:35 QUIT TOBACCO USE 1-7 VA CNTRL WSTRN AM YEARS AGO [place] [facility] May 21, 2001 01:11 HISTORY OF SMOKING VA CNTRL W STRN PM quit 5 years ago [facility] Encounter Notes: All associated encounter notes This section contains the clinical notes associated to the Encounter. Date/Time Encounter Note(s) Provider Source Jun 25, 2021 09:55 AM IMMUNIZATION NOTE: FELI VALLEJO ID CNTR L WSTRN LOCAL TITLE: COVID-19 VACCINE SCHEDULING NOTE [facility] STANDARD TITLE: IMMUNIZATION NOTE DATE OF NOTE: JUN 25, 2021@09:55 ENTRY DATE: JUN 25, 2021@09:55:20 AUTHOR: FELI VALLEJO EXP COSIGNER: URGENCY: STATUS: COMPLETED Is interested in rec eiving the COVID-19 vaccine as it becomes available? An unsuccessful attempt was made to dayami l the to schedule the Covid-19 vaccine booster (This is the [facility]. We are sorry we missed you today. We are calling to provide carmen tional information about the Covid vaccine. /rajesh/ FELI VALLEJO Advanced Stucco Worker Signed: 06/25/2021 09:55
--- OUTSIDE RECORDS SUMMARY | 2022-05-27 20:46 | XMS_ITS | Encounter Summary ---
:1945 Author Organization Department [facility] rs Address [address] [place] [address] Support Name Relationship Address Phone MAURA COELHO Unavailable [address] [place] [address] MAURA COELHO Unavailable [address] [facility] [place] [address] GISELLE COELHO Unavailable 20 [facility] [address] Insurance Providers: All historical and current Section [...] Hare HEALTH NEW MEDICARE MCR Apr 17, [id number] [phone] Lauren SEVILLA PATIENT [facility] ([facility]) 2012 [id number] [facility] (WN) HEALTH NEW MEDICARE MCR Apr 17, [id number] [phone] Lauren SEVILLA PATIENT [facility] (WNR) 2012 9 35 4 [facility] ([facility]) Selected Encounter This section includes the information on record at [place] for the Encounter. Date/Time Encounter Type Encounter Description Reason Provider Source Jul 31, 2021 09:41 Outpatient Encounter PRIMARY CARE/MEDICINE AM IHE Encounter Template Text not used by [place] Plan of Treatment: Future Appointments (+ 6 [...] 20 appointments. The data comes from all [place] treatment facilities. Appointment Date/Time Appointment Type Appointment Brii kasandra Name Nov 07, 2021 03:00 PM AMBULATORY - MEDICINE [place] [facility] Dec 13, 2021 10:00 AM AMBUL[facility]ORY MEDICINE [facility] Dec 13, 2021 10:30 AM AMBULATORY MEDICINE [place] [facility]L W[facility]N [facility] Dec 13, 2021 11:30 AM AMBULATORY MEDICINE [place] CNTRL WSTRN [facility] Social History: Smoking Status (Most current) and Tobacco Use (All prior to encounter date) This section includes the most current, and the historical, smoking and tobacco-related health factors from the [place] facility where the Encounter took place.Current Smoking Status This section includes the most current smoking, or tobacco-related health factor, from the [place] facility where the Encounter took place. Date/Time Current Smoking Status Comment Facility Jul 31, 2021 09:41 AM VA-TOBACCO FORMER USER [place] CNTRL WSTRN [facility] Tobacco Use History This section includes a history of the smoking, or tobacco- related health factors, that were collected on or before the date of the Encounter. The data comes from the [place] facility where the Encounter took place. Date/Time Smoking Status/Tobacco Comment Facility Use Jul 31, 2021 09:41 VA-TOBACCO QUIT 15 YRS OR VA CNTRL WSTRN AM MORE [place] [facility] Jun 29, 2020 11:00 VA-TOBACCO FORMER USER [place] CNT RL WSTRN AM [place] [facility] Jun 29, 2020 11:00 VA-TOBACCO QUIT 15 YRS OR VA CNTRL WSTRN AM MORE [place] [facility] Feb 10, 2019 10:14 VA-TOBACCO FORMER USER [place] CNT RL WSTRN AM [place] [facility] Feb 10, 2019 10:14 VA-TOBACCO QUIT 15 YRS OR VA CNTRL WSTRN AM MORE [place] [facility] Nov 27, 2017 11:12 QUIT TOBACCO USE > 7 VA CNTRL WSTRN AM YEARS AGO [place] [facility] Nov 05, 2016 11:01 QUIT TOBACCO USE > 7 VA CNTRL WSTRN AM YEARS AGO [place] [facility] Sep 17, 2015 01:03 QUIT TOBACCO USE > 7 VA CNTRL WSTRN PM YEARS AGO stopped 20 years ago [place] [facility] Feb 24, 2005 10:09 HISTORY OF SMOKING VA CNTRL W STRN AM [place] [facility] May 28, 2004 08:08 QUIT TOBACCO USE > 7 VA CNTRL WSTRN AM YEARS AGO [place] [facility] Nov 27, 2003 01:12 HISTORY OF SMOKING [facility] Mar 15, 2003 02:03 QUIT TOBACCO USE 1-7 VA CNTRL WSTRN PM YEARS AGO [place] [facility] Aug 24, 2002 11:07 HISTORY OF SMOKING [facility]L W STR[facility] Feb 11, 2002 11:35 QUIT TOBACCO USE 1-7 VA CNTRL WSTRN AM YEARS AGO [place] [facility] May 21, 2001 01:11 HISTORY OF SMOKING VA CNTRL W STRN PM quit 5 years ago [facility] Encounter Notes: All associated encounter notes This section contains the clinical notes associated to the Encounter. Date/Time Encounter Note(s) Provider Source Jul 31, 2021 09:41 AM PREVENTIVE MEDICINE NURSING NOTE: Stefania ALVARADO [facility] CNTRL WSTRN LOCAL TITLE: CLINICAL REMINDERS/NURSING E [facility] STANDARD TITLE: PREVENTIVE MEDICINE NURSING NOTE DATE OF NOTE: JUL 31, 2021@09:41 ENTRY DATE: JUL 31, 2021@09:41:10 AUTHOR: GISSELL ALVARADO EXP COSIGNER: URGENCY: STATUS: COMPLETED Advance Directive Screen: Patient has an up-to-date Advance Directive doc ument, but it is not on file at this [facility]. Patient has been requested t o forward a copy to his/her clinician. The patient received education about advance di rectives as well as written notification of his/her rights. Advance Directive Screen: Patient has an up-to-date Advance Directive doc ument, but it is not on file at this [facility]. Patient has been requested t o forward a copy to his/her clinician. The patient received education about advance di rectives as well as written notification of his/her rights. Comment: spouse Depression Screening: Perform PHQ-2 A PHQ-2 screen was performed. The score was 0 w hich is a negative screen for depression. Over the past two weeks, how often have you bee n bothered by the following problems? 1. Little interest or pleasure in doing things Not at all 2. Feeling down, depressed, or hopeless Not at all PTSD Screening: PC-PTSD-5 A PTSD screening test (PC-PTSD-5) was negative (score=0). Have you ever had any experience that was so fr ightening, horrible or upsetting that, IN THE PAST MONTH, you: Have you ever experienced this kind of event? NO 1. Had nightmares about the event(s) or thought about the event(s) when you did not want to? Response not required due to responses to other questions. 2. Tried hard not to think about the event(s) o r went out of your way to avoid situations that reminded you of the ev ent(s)? Response not required due to responses to other questions. 3. Been constantly on guard, watchful, or easil y startled? Response not required due to responses to other questions. 4. [place] numb or detached from people, activitie s, or your surroundings? Response not required due to responses to other questions. 5. [place] guilty or unable to stop blaming yourse lf or others for the event(s) or any problems the event(s) may have caused? Response not required due to responses to other questions. Relationship Health & Safety Screen: Environment is safe to proceed INFORMED CONSENT TO SCREEN & DOCUMENT: Individual consents to documentation? Yes Individual consents to proceed with screening? Yes PRIMARY SCREEN: In the past 12 months, how often did a current or former intimate partner (e.g., boyfriend, girlfriend, , , se xual partner): Scream or curse at you: Never Insult or talk down to you: Never Threaten you with harm: Never Physically hurt you: Never In the past 12 months, how often did a current or former intimate partner force or pressure you to have sexual co ntact against your will, or when you were unable to say no? Never PRIMARY SCREEN RESULTS: The individual denied all forms of IPV above (i .e., answered never to all 5 items above). ??The [employer] tool is US copyright protected by Aaron Simmons MD, and the user has full rights to use it throughout the [employer] system. DISPOSITION: Provided general IPV education. Provided contact information for IPVAP [employer] or [employer]. Tobacco Use Screening: The patient is a former tobacco user. The patient quit fifteen or more years ago. Alcohol Use Screen (AUDIT-C): Alcohol Screen: SCREEN FOR ALCOHOL (AUDIT-C) An alcohol screening test (AUDIT-C) was negativ e (score=0). 1. How often did you have a drink containing al cohol in the past year? Never 2. How many drinks containing alcohol did you h ave on a typical day when you were drinking in the past year? Response not required due to responses to other questions. 3. How often did you have six or more drinks on one occasion in the past year? Response not required due to responses to other questions. /rajesh/ GISSELL ALVARADO LPN Signed: 07/31/2021 09:43
--- NOTE | 2022-05-27 20:47 | ED_ITS ---
HPI - Back Pain/Injury General Chief Complaint: Back Pain/Injury Stated Complaint: back pain Time Seen by Provider: 05/27/22 20:38 Source: patient Mode of arrival: ambulatory Limitations: no limitations History of Present Illness HPI Narrative: This is a 76-year-old male presenting to the emergency department with acute on chronic back pain, patient tells me he is having pain to his mid back that has been going on for 1 year progressively worsening. Patient reports that pain is worse with movement, better at rest. Also worse with heavy lifting. Patient tells me that he tried to get a CT done however it was denied by his primary care provider. He reports that the pain is so severe it is interacting with his activities of daily living, making it hard to do things. However, patient does report that he has been able to work over the past few days without difficulty. He reports the pain is constant in nature, severe in stabbing detox, worse on the left-hand side. Denies history of back surgeries, IV drug abuse. Patient denies fevers, chills, chest pain, shortness of breath, urinary/bowel incontin ence/retention, nausea, vomiting, weakness, numbness, tingling, saddle paresthesias, headache vision changes. Patient was able to ambulate with steady gait into the room. Denies trauma to the area. To note patient tells me that his blood pressures at home have been higher than usual however [facility]. He is requesting a cardiac workup and an EKG. Denies chest pain and shortness of breath. Patient not on blood thinners. MD elicited complaint: back pain Related Data Home Medications Medication Instructions Recorded Confirmed multivitamin 1 tab PO DAILY 08/28/20 05/21/22 zolpidem 5 mg tablet (Ambien) 10 mg PO BEDTIME PRN rash 08/28/20 05/21/22 amlodipine 2.5 mg tablet 2.5 mg PO DAILY 05/21/22 05/21/22 atorvastatin 20 mg tablet 20 mg PO DAILY 05/21/22 05/21/22 hydrochlorothiazide 25 mg tablet 25 mg PO DAILY 05/21/22 05/21/22 Previous Rx's Medication Instructions Recorded dicyclomine 10 mg capsule 10 mg PO TID #90 caps 09/28/20 calcium citrate 500 mg PO BID 30 days #120 tabs 02/26/21 cholecalciferol (vitamin D3) 50 2,000 unit PO DAILY 30 days #30 02/26/21 mcg (2,000 unit) capsule caps tadalafil 10 mg tablet 10 mg PO DAILY sexual activity 90 05/08/21 days #90 tabs testosterone 4 mg/24 hr 1 patch transdermal DAILY 30 days 05/08/21 transdermal 24 hour patch #30 ea vitamin E (dl, acetate) 450 mg 450 mg PO DAILY 90 days #90 caps 05/08/21 (1,000 unit) capsule alendronate 70 mg tablet 70 mg PO QWEEK 30 days #5 tabs 12/09/21 tramadol 50 mg tablet 50 mg PO BID PRN pain #8 tabs 05/27/22 Allergies Allergy/AdvReac Type Severity Reaction Status Date / Time amoxicillin [From Augmentin] AdvReac Severe SEVERE Verified 05/21/22 16:52 DIARRHEA clavulanic acid AdvReac Severe SEVERE Verified 05/21/22 16:52 [From Augmentin] DIARRHEA erythromycin base AdvReac Intermediate GI UPSET Verified 05/21/22 16:52 [ERYTHROMYCIN BASE] Sulfa (Sulfonamide AdvReac Intermediate MOUTH Verified 05/21/22 16:52 Antibiotics) SORES, RASH Review of Systems Review of Systems: Constitutional : No Weight loss, No Fever, No Chills, ENT/Mouth : No Hearing loss, No Ear Pain, No Nasal Congestion, No Sinus Pain, No Hoarseness, No sore throat, No Rhinorrhea, No Swallowing Difficulty Cardiovascular : No Chest Pain, No SOB Respiratory : No Cough, No Dyspnea Gastrointestinal : No Nausea, No Vomiting, No Diarrhea, No abdominal Pain, No Hematochezia, No Melena Genitourinary : No Dysuria, No Urinary Frequency, No Hematuria, No Urinary Incontinence, Musculoskeletal : positive back pain Skin : No Skin Lesions, No rash Neuro : No Weakness, No Numbness, No Paresthesias, no loss of bowel or bladder incontinence, no saddle anesthesia Yes all other systems are reviewed and are negative [facility] Past Medical History Attestation statement: The following information was validated with the patient. Source: old records reviewed and nursing notes reviewed Medical History Allergic rhinitis Annual physical exam Ascending aortic aneurysm BPH (benign prostatic hyperplasia) Essential hypertension Fracture, thoracic vertebra, compression Hearing problem HTN (hypertension) Hyperlipidemia Hypogonadism male Insomnia Lumbar degenerative disc disease Normal colonoscopy Osteoporosis Polycythemia Prostate CA Surgical History History of colon resection History of esophagogastroduodenoscopy (EGD) History of repair of hiatal hernia Hx of appendectomy Hx of colonoscopy Hx of cystoscopy Hx of hernia repair Hx of nasal septoplasty Hx of transurethral resection of prostate Family History Family History Father Alzheimer disease Colon cancer Colon polyps Mother No problems noted. Other Mental health disorder Social History Social History Housing: House Alcohol intake: current Alcohol intake frequency: holidays/special occasions only Patient Tobacco Use Status: Former Tobacco user Quit Date: 30 years ago e-Cigarette/Vaping Use: Never Used Second Hand Smoke Exposure: No Advance Directives: No Advance Directives Information Provided: No service: Yes Current occupational status: employed and retired Cognitive needs: No Hearing needs: Yes Vision needs: No Physical Exam Vital Signs: Vital Signs: Last Vital Signs Temp 98.4 F 05/27/22 21:57 Pulse 70 05/27/22 21:57 Resp 16 05/27/22 21:57 BP 175/89 H 05/27/22 21:57 Pulse Ox 96 05/27/22 21:57 O2 Del Method 05/27/22 21:57 BMI result Body Mass Index 29.2 Patient is noted to be hypertensive likely secondary to pain. All other vital signs are stable Appearance: Alert.? Oriented X3.? No acute distress.? Head: Normocephalic, atraumatic, no step-offs or deformities Eyes: Pupils equal, round and reactive to light.? ENT: Pharynx normal.? Neck: Normal inspection.? Neck supple.? CVS: Normal heart rate and rhythm.? Pulses normal.? Respiratory: No respiratory distress.? Breath sounds normal.? Abdomen: Soft and nontender.? Skin: Skin warm and dry.? Normal skin color.? Normal skin turgor.? Extremities: No lower extremity edema.? No calf ttp. 5/5 strength to bilateral upper and lower extremities 2+ patellar DTRs equal bilateral. Back: No midline tenderness, no C-spine tenderness, full range of motion, however painful to the mid back, no CVA tenderness bilaterally. Mild paraspinous tenderness to the thoracic and lumbar region on left side. Neuro: Oriented X 3.? No motor deficit.? No sensory deficit. CN 2-12 intact . Patient ambulating with steady gait normal coordination. No saddle paresthesias. Course Reevaluation(s) Reevaluation #1: CBC within normal limits. Chemistry with no acute findings. Troponin negative, EKG nonischemic, unlikely ACS. Lipase negative. COVID negative. Time: 23:25 Reevaluation #2: CT of the abdomen pelvis with small nonobstructing left renal stones. Diverticulosis of the colon, no diverticulitis. A small liver cyst is noted. CT of the thoracic spine with generalized osteopenia and mild to moderate multilevel degenerative changes. Superior plate compression deformity of T9 however does not appear to be acute. Patient will likely require an MRI, discussed this with patient. Chest x-ray with no acute finding. Patient feeling better after tramadol. Able to ambulate without difficulties. Advised to follow-up with PCP and return with new or worsening symptoms. At this time I feel comfortable discharge home with prompt PCP and spines for follow-up. Time: 23:27 MDM - Back Pain/Injury MDM Narrative Medical decision making narrative: 2049 76-year-old male presents with acute on chronic back pain, localized to the thoracic/lumbar spine area. No new trauma. No red flag symptoms. Physical examination with mild paraspinous tenderness to thoracic/lumbar region on left, no midline tenderness, no saddle paresthesias, ambulating with steady gait, normal DTRs, normal strength. Patient's blood pressure is noted to be elevated however he is having significant back pain therefore will repeat pressure after pain control Likely herniated disc, lumbar/thoracic strain. Unlikely cauda equina, cord compression, epidural abscess. Patient does not have chest pain or shortness of breath I do not suspect ACS or PE, he requested an EKG and cardiac workup however I did not feel that it was necessary. HX and pe not consistent with AAA Plan at this time is to obtain imaging. Will give medications for pain. Medical Records Attestation: I reviewed the patient's medical records. Lab Data Attestation: I reviewed the patient's lab results. Result diagrams: 05/27/22 22:20 05/27/22 22:20 Labs: Lab Results 05/27/22 05/27/22 05/27/22 Range/Units 22:20 22:20 22:20 WBC 7.1 (4.8-10.8) X10*3/uL RBC 5.36 (4.60-5.80) X10*6/uL Hgb 15.9 (14.0-18.0) g/dl Hct 46.5 (42.0-52.0) % MCV 86.8 (80.0-98.0) fL MCH 29.7 (27.0-33.0) pg MCHC 34.2 (31.0-36.0) g/dl RDW 12.7 (11.0-16.0) % Plt Count 213 (160-400) X10*3/uL MPV 9.3 L (9.4-12.4) fL Immature Gran % (Auto) 0.3 (0.0-0.4) % Neut % (Auto) 64.5 (45-73) % Lymph % (Auto) 23.7 (20-40) % Foard % (Auto) 9.3 (2-11) % Eos % (Auto) 1.8 (0-4) % Baso % (Auto) 0.4 (0-2) % Lymph # (Auto) 1.7 (1.2-4.9) X10*3/uL Foard # (Auto) 0.7 (0.1-1.2) X10*3/uL Eos # (Auto) 0.1 (0.0-0.4) X10*3/uL Baso # (Auto) 0.0 (0.0-0.2) X10*3/uL Abs Immat Gran (auto) 0.02 (0.00-0.03) X10*3/uL Absolute Neuts (auto) 4.6 (2.0-8.3) x10*3/uL Absolute Nucleated RBC 0.000 (0.0-0.012) X10*3/uL Nucleated RBC % (auto) 0.0 (0.0-0.2) /100WBC Sodium 139 (135-145) mmol/L Potassium 3.8 (3.3-5.1) mmol/L Chloride 100 (96-108) mmol/L Carbon Dioxide 26 (22-29) mmol/L Anion Gap 17 (12-20) BUN 12 (9-16) mg/dL Creatinine 0.79 (0.5-1.4) mg/dL Estim Creat Clear Calc 96.6 Estimated GFR > 60 Random Glucose 101 (60-115) mg/dL Calcium 10.4 H D (8.4-10.2) mg/dL Magnesium 1.9 (1.6-2.6) mg/dL Total Bilirubin 1.2 H (0.0-1.0) mg/dL AST 30 D (5-37) U/L ALT 29 (0-40) U/L Alkaline Phosphatase 68 (39-117) U/L Troponin I High Sens 7.0 (<3.5-35.0) ng/L Total Protein 7.6 (6.5-8.0) g/dL Albumin 4.6 (3.5-5.0) g/dL Lipase 45 (8-78) U/L COVID-19 (RYANNE) (Negative) COVID-19 Clin Com 05/27/22 Range/Units 22:20 WBC (4.8-10.8) X10*3/uL RBC (4.60-5.80) X10*6/uL Hgb (14.0-18.0) g/dl Hct (42.0-52.0) % MCV (80.0-98.0) fL MCH (27.0-33.0) pg MCHC (31.0-36.0) g/dl RDW (11.0-16.0) % Plt Count (160-400) X10*3/uL MPV (9.4-12.4) fL Immature Gran % (Auto) (0.0-0.4) % Neut % (Auto) (45-73) % Lymph % (Auto) (20-40) % Foard % (Auto) (2-11) % Eos % (Auto) (0-4) % Baso % (Auto) (0-2) % Lymph # (Auto) (1.2-4.9) X10*3/uL Foard # (Auto) (0.1-1.2) X10*3/uL Eos # (Auto) (0.0-0.4) X10*3/uL Baso # (Auto) (0.0-0.2) X10*3/uL Abs Immat Gran (auto) (0.00-0.03) X10*3/uL Absolute Neuts (auto) (2.0-8.3) x10*3/uL Absolute Nucleated RBC (0.0-0.012) X10*3/uL Nucleated RBC % (auto) (0.0-0.2) /100WBC Sodium (135-145) mmol/L Potassium (3.3-5.1) mmol/L Chloride (96-108) mmol/L Carbon Dioxide (22-29) mmol/L Anion Gap (12-20) BUN (9-16) mg/dL Creatinine (0.5-1.4) mg/dL Estim Creat Clear Calc Estimated GFR Random Glucose (60-115) mg/dL Calcium (8.4-10.2) mg/dL Magnesium (1.6-2.6) mg/dL Total Bilirubin (0.0-1.0) mg/dL AST (5-37) U/L ALT (0-40) U/L Alkaline Phosphatase (39-117) U/L Troponin I High Sens (<3.5-35.0) ng/L Total Protein (6.5-8.0) g/dL Albumin (3.5-5.0) g/dL Lipase (8-78) U/L COVID-19 (RYANNE) Negative (Negative) COVID-19 Clin Com See Note ECG Data Attestation: I personally reviewed and interpreted this ECG as follows: ECG interpretation date: 05/27/22 ECG interpretation time: 23:23 Prior ECG tracings: available for review Interpretation: Ventricular rate of 76, ME normal, QRS normal, QT/QTC normal. EKG with normal sinus rhythm, no ST elevations or inversions concerning for ischemia. No significant changes when compared to previous on 01/29/2022 Critical Care Time Critical Care Time Critical Care Time: No Discharge Plan Discharge Clinical Impression: Back pain, High blood pressure, Kidney stone, Compression deformity of vertebra Patient Disposition: Home, Self-Care Instructions: Kidney Stones (ED), Hypertension (ED), Back Pain (ED) Additional Instructions: Take your medications as prescribed. If you were prescribed antibiotics today, it is important that you take your medication to their entirety, do not skip any doses, do not finish them early. Follow-up with your primary care provider this week. Please follow-up with [facility]. Return to the emergency department with new or worsening symptoms. Such as fevers, chills, chest pain, shortness of breath, nausea, vomiting, dizziness, headache, vision changes, lethargy, loss of bladder or bowel control, numbness between the legs or to lower extremities, weakness In case of emergency call 911 Your pressure was noted to be slightly on the higher end here in the emergency department please check your pressure Thursday, Thursday, Thursday, write it down ensure with your primary care provider. CT/CT thoracic spine wo IV con IMPRESSION: 1. Generalized osteopenia and mild to moderate multilevel degenerative changes. Mild anterior superior plate compression deformity of T9 does not demonstrate acute features. No significant abnormality at T6. If pain persists or worsens, further evaluation with MRI is recommended. CT/CT abdomen pelvis wo IV con IMPRESSION: Small nonobstructing left renal stones. Diverticulosis of the colon. No evidence of diverticulitis. Right renal and probable small liver cysts. ? ? Fleischner guidelines were followed. XR/XR chest 1V IMPRESSION: No evidence for acute disease in the chest. Prescriptions: New tramadol 50 mg tablet 50 mg PO BID PRN (Reason: pain) Qty: 8 0RF No Action alendronate 70 mg tablet 70 mg PO QWEEK 30 Days Qty: 5 6RF dicyclomine 10 mg capsule 10 mg PO TID Qty: 90 1RF amlodipine 2.5 mg tablet 2.5 mg PO DAILY atorvastatin 20 mg tablet 20 mg PO DAILY hydrochlorothiazide 25 mg tablet 25 mg PO DAILY zolpidem [Ambien] 5 mg tablet 10 mg PO BEDTIME PRN (Reason: rash) multivitamin Tablet 1 tab PO DAILY calcium citrate 250 mg calcium tablet 500 mg PO BID 30 Days Qty: 120 6RF cholecalciferol (vitamin D3) 50 mcg (2,000 unit) capsule 2,000 unit PO DAILY 30 Days Qty: 30 6RF testosterone 4 mg/24 hr patch 24 hour 1 patch transdermal DAILY 30 Days Qty: 30 5RF vitamin E (dl, acetate) 450 mg (1,000 unit) capsule 450 mg PO DAILY 90 Days Qty: 90 1RF tadalafil 10 mg tablet 10 mg PO DAILY 90 Days Qty: 90 0RF Referrals: [facility] [Provider Group] - 1 week Christi Mata FNP [Primary Care Provider] - 2 days
--- OUTSIDE RECORDS SUMMARY | 2022-05-27 20:48 | XMS_ITS ---
:1945 Author Organization Department [facility] rs Address [address] [place] [id number] Support Name Relationship Address Phone MAURA COELHO Unavailable [address] [place] [address] MAURA COELHO Unavailable [address] [facility] [place] [address] GISELLE COELHO Unavailable [address] [facility] [address] Insurance Providers: All historical and current Section [...] [employer] HE[employer] NEW MEDICARE MCR Apr 17, [id number] [phone] Lauren SEVILLA PATIENT [facility] (WN) 2012 [id number] HE[facility] NEW MEDICARE MCR Apr 17, [id number] [phone] Lauren SEVILLA PATIENT [facility] ([facility]) [phone] [id number] 4 [facility] Selected Encounter This section includes the information on record at [place] for the Encounter. Date/Time Encounter Type Encounter Description Reason Provider Source January 03, 2022 12:00 Outpatient Encounter EVENT (HISTORICAL) AM [facility] Encounter Template Text not used by [place] Plan of Treatment: Future Appointments (+ 6 [...] 20 appointments. The data comes from all [place] treatment facilities. Appointment Date/Time Appointment Type Appointment Facili ty Name May 08, 2022 03:00 PM AMBULATORY - MEDICINE [facility] Social History: Smoking Status (Most current) and Tobacco Use (All prior to encounter date) This section includes the most current, and the historical, smoking and tobacco-related health factors from the [place] facility where the Encounter took place.Current Smoking Status This section includes the most current smoking, or tobacco-related health factor, from the [place] facility where the Encounter took place. Date/Time Current Smoking Status Comment Facility Jul 31, 2021 09:41 AM VA-TOBACCO QUIT 15 YRS [facility] Tobacco Use History This section includes a history of the smoking, or tobacco- related health factors, that were collected on or before the date of the Encounter. The data comes from the [place] facility where the Encounter took place. Date/Time Smoking Status/Tobacco Comment Facility Use Jul 31, 2021 09:41 VA-TOBACCO QUIT 15 YRS OR [facility] [place] [facility] Jun 29, 2020 11:00 VA-TOBACCO FORMER USER [facility] [place] [facility] Jun 29, 2020 11:00 VA-TOBACCO QUIT 15 YRS OR [facility] [place] [facility] Feb 10, 2019 10:14 VA-TOBACCO FORMER USER [facility] [place] [facility] Feb 10, 2019 10:14 VA-TOBACCO QUIT 15 YRS OR [facility] [place] [facility] Nov 27, 2017 11:12 QUIT TOBACCO USE > 7 [facility] AM YEARS AGO [place] [facility] Nov 05, 2016 11:01 QUIT TOBACCO USE > 7 [facility] AM YEARS AGO [place] [facility] Sep 17, 2015 01:03 QUIT TOBACCO USE > 7 [facility] PM YEARS AGO stopped 20 years ago [place] [facility] Feb 24, 2005 10:09 HISTORY OF SMOKING [place] [facility] [place] [facility] May 28, 2004 08:08 QUIT TOBACCO USE > 7 [facility] AM YEARS A[place] [facility] Nov 27, 2003 01:12 HISTORY OF SMOKING [facility] [place] [facility] Mar 15, 2003 02:03 QUIT TOBACCO USE 1-7 [facility] Aug 24, 2002 11:07 HISTORY OF SMOKING [facility] Feb 11, 2002 11:35 QUIT TOBACCO USE 1-7 [facility] AM YEARS AGO [facility] May 21, 2001 01:11 HISTORY OF SMOKING [facility] PM quit 5 years ago [facility]
--- OUTSIDE RECORDS SUMMARY | 2022-05-27 20:48 | XMS_ITS | Encounter Summary ---
:1945 Author Organization Department [facility] rs Address [address] [place] [id number] Support Name Relationship Address Phone MAURA COELHO Unavailable [address] [place] [address] MAURA COELHO Unavailable [address] [place] [address] GISELLE COELHO Unavailable [address] [facility] [place] [address] Insurance Providers: All historical and current Section [...] Hare HEALTH NEW MEDICARE MCR Apr 17, [id number] [phone] Lauren SEVILLA PATIENT [facility] (WN) 2012 [id number] [facility] (WN) HEALTH NEW MEDICARE MCR Apr 17, [id number] [phone] Lauren SEVILLA PATIENT [facility] (WNR) [phone] [facility] ([facility]) Selected Encounter This section includes the information on record at [place] for the Encounter. Date/Time Encounter Type Encounter Description Reason Provider Source May 13, 2022 12:00 Outpatient Encounter EVENT (HISTORICAL) AM IHE Encounter Template Text not used by [place] Plan of Treatment: Future Appointments (+ 6 [...] 20 appointments. The data comes from all [facility]. Appointment Date/Time Appointment Type Appointment Facili ty Name Jul 09, 2022 11:15 AM [facility] Jul 21, 2022 01:00 PM [facility] Nov 07, 2022 11:00 AM AMBULATORY MEDICINE [facility] Active, Pending, and Scheduled Orders This section includes a listing of several types of active, pending, and scheduled orders, including clinic medications orders, diagnostic test orders, procedure orders and consult orders; where the start date of the order is 45 days before the date of the Encounter or 45 days after the date of the Encounter. The data comes from all [facility]. Test Date/Time Test Type Test Details Facility Name May 08, 2022 03:51 PM Consult Order COMMUNITY CARE-UROLOGY [facility] Cons Greek Professor's Choice [facility] Lab Results: +/- 30 days of the encounter This section includes the Chemistry and Hematology Lab Results on record with [place] for the patient. Radiology Reports and Pathology Reports are provided separately, in subsequent sections.Lab Results This section contains the Chemistry/Hematology Results that were resulted 30 days before or 30 daysafter the date of the Encounter. Date/Time Source Result Type Result - Unit Interpretation Reference Range Comment Apr 29, 2022 [facility] CBC AND DIFF Specimen Type: BLOOD 09:26 AM [facility] (AUTO) No comment enter ed. Ordering Provid er: APOORVA MORENO Report Released Date/Time: Nov 07, 2021 03:26 PM Reporting Lab: [facility] [address] [facility] [address] Performing Lab: [address] [address] WBC 4.37 L 4.50-11.00 RBC 4.62 4.23-5.66 HGB 13.6 12.8-17 HCT 40.4 39.2-50.4 MCV 87.4 82-99 MCHC 33.7 30.8-35.1 PLT 186 140-360 RDW-CV 12.5 12.0-16.0 Power, Abs 0.43 0.30-1.10 MCH 29.4 26.2-32.6 Neut % 63.6 Lymph % 23.1 Power % 9.8 Eos % 2.5 Baso % 0.5 Neut, Abs 2.78 2.20-7.60 Lymph, Abs 1.01 1.00-3.20 Eos, Abs 0.11 0.03-0.44 Baso, Abs 0.02 0.01-0.13 Immature Gran % 0.5 Immature Gran, Abs 0.02 0.00-0.06 Apr 29, 2022 [place] [facility] TESTOSTERONE, TOTAL Specimen Ty pe: SERUM 09:26 AM [place] [facility] No comment enter ed. Ordering Provid er: APOORVA MORENO Report Released Date/Time: Oct 30, 2021 11:07 AM Reporting Lab: [facility] [place] [facility] [address] [facility] [address] Performing Lab: [place] [facility] [place] [facility] [address] [facility] [address] TESTOSTERONE, TOTAL 192.87 L 220.00-892 .00 Apr 29, 2022 09:26 AM [facility] [place] PSA Specimen Type: SERUM HCS No comment enter ed. Ordering Provid er: APOORVA MORENO Report Released Date/Time: Oct 30, 2021 11:07 AM Reporting Lab: [place] [facility] [facility] [address] [facility] [address] Performing Lab: [place] [facility] [facility] [address] [facility] [address] PSA 0.11 0.00-4.00 Apr 29, 2022 [facility] LIPID PANEL Specimen Type: SERUM 09:26 AM [place] [facility] FASTING No comment enter ed. Ordering Provid er: APOORVA MORENO Report Released Date/Time: Oct 30, 2021 11:07 AM Reporting Lab: [facility] [place] [facility] [address] [facility] [address] Performing Lab: [facility] [address] [facility] [address] CHOLESTEROL 156 <7-199 TRIGLYCERIDE 87 0-150 LDL calculated 96 0-129 CHOL/HDL 3.6 HDL CHOLESTEROL 43 40-60 Apr 29, 2022 09:26 [facility] LIVER FUNCTION Specimen Typ e: SERUM AM [place] [facility] No comment enter ed. Ordering Provid er: APOORVA MORENO Report Released Date/Time: Oct 30, 2021 11:07 AM Reporting Lab: [facility] [address] [facility] [address] Performing Lab: [facility] [address] [facility] [address] PROTEIN,TOTAL 6.2 6.0-8.3 ALBUMIN 3.7 3.5-5.0 ALKALINE PHOSPHATASE 53 40-150 AST 34 5-34 ALT 27 <6-55 BILIRUBIN, TOTAL 0.6 0.2-1.2 Apr 29, 2022 [facility] BASIC METABOLIC Specimen Type: SERUM 09:26 AM [facility] PANEL (fasting) No comment enter ed. Ordering Provid er: APOORVA MORENO Report Released Date/Time: Oct 30, 2021 11:07 AM Reporting Lab: [facility] [address] [facility] [address] Performing Lab: [facility] [address] [facility] [address] UREA NITROGEN 16 7-25 GLUCOSE 107 H 65-100 SODIUM 139 135-145 POTASSIUM 4.4 3.5-5.0 CHLORIDE 108 100-110 CO2 22 20-30 CREATININE, Serum 0.74 0.50-1.40 eGFR(CKD-EPI 2020) >90 >60 Social History: Smoking Status (Most current) and Tobacco Use (All prior to encounter date) This section includes the most current, and the historical, smoking and tobacco-related health factors from the [place] facility where the Encounter took place.Current Smoking Status This section includes the most current smoking, or tobacco-related health factor, from the [place] facility where the Encounter took place. Date/Time Current Smoking Status Comment Facility Jul 31, 2021 09:41 AM VA-TOBACCO FORMER USER [facility] Tobacco Use History This section includes a history of the smoking, or tobacco- related health factors, that were collected on or before the date of the Encounter. The data comes from the [place] facility where the Encounter took place. Date/Time Smoking Status/Tobacco Comment Facility Use Jul 31, 2021 09:41 VA-TOBACCO QUIT 15 YRS OR [facility] [place] [facility] Jun 29, 2020 11:00 VA-TOBACCO FORMER USER [facility] AM [place] [facility] Jun 29, 2020 11:00 VA-TOBACCO QUIT 15 YRS OR [facility] AM [place] [facility] Feb 10, 2019 10:14 VA-TOBACCO FORMER USER [facility] AM [place] [facility] Feb 10, 2019 10:14 VA-TOBACCO QUIT 15 YRS OR [facility] AM [place] [facility] Nov 27, 2017 11:12 QUIT TOBACCO USE > 7 [facility] AM YEARS AGO [place] [facility] Nov 05, 2016 11:01 QUIT TOBACCO USE > 7 [facility] AM YEARS AGO [place] [facility] Sep 17, 2015 01:03 QUIT TOBACCO USE > 7 [facility] PM YEARS AGO stopped 20 years ago [facility] Feb 24, 2005 10:09 HISTORY OF SMOKING [facility] AM [place] [facility] May 28, 2004 08:08 QUIT TOBACCO USE > 7 [facility] AM YEARS AGO [place] [facility] Nov 27, 2003 01:12 HISTORY OF SMOKING [facility] PM [place] [facility] Mar 15, 2003 02:03 QUIT TOBACCO USE 1-7 [facility] PM YEARS AGO [place] [facility] Aug 24, 2002 11:07 HISTORY OF SMOKING [facility] AM [place] [facility] Feb 11, 2002 11:35 QUIT TOBACCO USE 1-7 [facility] AM YEARS AGO [place] [facility] May 21, 2001 01:11 HISTORY OF SMOKING [facility] PM quit 5 years ago [facility] Encounter Notes: All associated encounter notes This section contains the clinical notes associated to the Encounter. Date/Time Encounter Note(s) Provider Source May 13, 2022 12:00 AM NONVA NOTE: [facility] LOCAL TITLE: NON-[facility]PATIENT [facility]ES [facility] STANDARD TITLE: NONVA NOTE DATE OF NOTE: MAY 13, 2022 ENTRY DATE: MAY 22 022@14:14:02 AUTHOR: LEOBARDO CEDENO EXP COSIGNER: URGENCY: STATUS: COMPLETED VistA Imaging - Scanned Document SCANNED DOCUMENT SIGNATURE NOT REQUIRED Electronically Filed: 05/22/2022 by: LEOBARDO CEDENO
--- OUTSIDE RECORDS SUMMARY | 2022-05-27 20:48 | XMS_ITS ---
:1945 Author Organization Department [facility] rs Address [address] [place] [address] Support Name Relationship Address Phone MAURA COELHO Unavailable [address] [place] [address] MAURA COELHO Unavailable [address] [facility] [place] [address] GISELLE COELHO Unavailable [address] [facility] [address] Insurance Providers: All historical and current Section [...] Hare HEALTH NEW MEDICARE MCR Apr 17, [id number] [phone] Lauren SEVILLA PATIENT [facility] (WN) 2012 [id number] [facility] (WN) HEALTH NEW MEDICARE MCR Apr 17, [id number] [phone] Lauren SEVILLA PATIENT [facility] (WNR) [phone] 4 [facility] ([facility]) Selected Encounter This section includes the information on record at [place] for the Encounter. Date/Time Encounter Type Encounter Description Reason Provider Source May 14, 2022 12:00 Outpatient Encounter EVENT (HISTORICAL) AM [...] 20 appointments. The data comes from all [facility]. Appointment Date/Time Appointment Type Appointment Facili ty Name Jul 09, 2022 11:15 AM [facility] Jul 21, 2022 01:00 PM [facility] Nov 07, 2022 11:00 AM AMBULATORY MEDICINE [facility] Active, Pending, and Scheduled Orders This section includes a listing of several types of active, pending, and scheduled orders, including clinic medications orders, diagnostic test orders, procedure orders and consult orders; where the start date of the order is 45 days before the date of the Encounter or 45 days after the date of the Encounter. The data comes from all [facility]. Test Date/Time Test Type Test Details Facility Name May 08, 2022 03:51 PM Consult Order COMMUNITY CARE-UROLOGY [facility] Cons Self Pay Collector's Choice [facility] Lab Results: +/- 30 days of the encounter This section includes the Chemistry and Hematology Lab Results on record with [place] for the patient. Radiology Reports and Pathology Reports are provided separately, in subsequent sections.Lab Results This section contains the Chemistry/Hematology Results that were resulted 30 days before or 30 daysafter the date of the Encounter. Date/Time Source Result Type Result - Unit Interpretation Reference Range Comment Apr 29, 2022 [facility] CBC AND DIFF Specimen Type: BLOOD 09:26 AM [facility] (AUTO) No comment enter ed. Ordering Provid er: APOORVA MORENO Report Released Date/Time: Nov 07, 2021 03:26 PM Reporting Lab: [facility] [address] [facility] [address] Performing Lab: [address] [address] WBC 4.37 L 4.50-11.00 RBC 4.62 4.23-5.66 HGB 13.6 12.8-17 HCT 40.4 39.2-50.4 MCV 87.4 82-99 MCHC 33.7 30.8-35.1 PLT 186 140-360 RDW-CV 12.5 12.0-16.0 Ector, Abs 0.43 0.30-1.10 MCH 29.4 26.2-32.6 Neut % 63.6 Lymph % 23.1 Ector % 9.8 Eos % 2.5 Baso % 0.5 Neut, Abs 2.78 2.20-7.60 Lymph, Abs 1.01 1.00-3.20 Eos, Abs 0.11 0.03-0.44 Baso, Abs 0.02 0.01-0.13 Immature Gran % 0.5 Immature Gran, Abs 0.02 0.00-0.06 Apr 29, 2022 [place] [facility] TESTOSTERONE, TOTAL Specimen Ty pe: SERUM 09:26 AM [place] [facility] No comment enter ed. Ordering Provid er: APOORVA MORENO Report Released Date/Time: Oct 30, 2021 11:07 AM Reporting Lab: [facility] [place] [facility] [address] [facility] [address] Performing Lab: [place] [facility] [facility] [address] [facility] [address] TESTOSTERONE, TOTAL 192.87 L 220.00-892 .00 Apr 29, 2022 09:26 AM [facility] [place] PSA Specimen Type: SERUM HCS No comment enter ed. Ordering Provid er: APOORVA MORENO Report Released Date/Time: Oct 30, 2021 11:07 AM Reporting Lab: [place] [facility] [facility] [address] [facility] [address] Performing Lab: [place] [facility] [facility] [address] [facility] [address] PSA 0.11 0.00-4.00 Apr 29, 2022 [place] [facility] LIPID PANEL Specimen Type: SERUM 09:26 AM [place] [facility] FASTING No comment enter ed. Ordering Provid er: APOORVA MORENO Report Released Date/Time: Oct 30, 2021 11:07 AM Reporting Lab: [facility] [place] [facility] [address] [facility] [address] Performing Lab: [facility] [address] [facility] [address] CHOLESTEROL 156 <7-199 TRIGLYCERIDE 87 0-150 LDL calculated 96 0-129 CHOL/HDL 3.6 HDL CHOLESTEROL 43 40-60 Apr 29, 2022 09:26 [facility] LIVER FUNCTION Specimen Typ e: SERUM AM [place] [facility] No comment enter ed. Ordering Provid er: APOORVA MORENO Report Released Date/Time: Oct 30, 2021 11:07 AM Reporting Lab: [facility] [address] [facility] [address] Performing Lab: [facility] [address] [facility] [address] PROTEIN,TOTAL 6.2 6.0-8.3 ALBUMIN 3.7 3.5-5.0 ALKALINE PHOSPHATASE 53 40-150 AST 34 5-34 ALT 27 <6-55 BILIRUBIN, TOTAL 0.6 0.2-1.2 Apr 29, 2022 [facility] BASIC METABOLIC Specimen Type: SERUM 09:26 AM [facility] PANEL (fasting) No comment enter ed. Ordering Provid er: APOORVA MORENO Report Released Date/Time: Oct 30, 2021 11:07 AM Reporting Lab: [facility] [address] [facility] [address] Performing Lab: [facility] [address] [facility] [address] UREA NITROGEN 16 7-25 GLUCOSE 107 H [...] AM VA-TOBACCO FORMER USER [facility] Tobacco Use History This section includes a history of the smoking, or tobacco- related health factors, that were collected on or before the date of the Encounter. The data comes from the [place] facility where the Encounter took place. Date/Time Smoking Status/Tobacco Comment Facility Use Jul 31, 2021 09:41 VA-TOBACCO QUIT 15 YRS OR [facility] AM [place] [facility] Jun 29, 2020 11:00 VA-TOBACCO FORMER USER [facility] [place] [facility] Jun 29, 2020 11:00 VA-TOBACCO QUIT 15 YRS OR [facility] AM [place] [facility] Feb 10, 2019 10:14 VA-TOBACCO FORMER USER [facility] [place] [facility] Feb 10, 2019 10:14 VA-TOBACCO QUIT 15 YRS OR [facility] AM [place] [facility] Nov 27, 2017 11:12 QUIT TOBACCO USE > 7 [facility] Nov 05, 2016 11:01 QUIT TOBACCO USE > 7 [facility] AM YEARS AGO [place] [facility] Sep 17, 2015 01:03 QUIT TOBACCO USE > 7 [facility] PM YEARS AGO stopped 20 years ago [facility] Feb 24, 2005 10:09 HISTORY OF SMOKING [facility] [place] [facility] May 28, 2004 08:08 QUIT TOBACCO USE > 7 [facility] Nov 27, 2003 01:12 HISTORY OF SMOKING [facility] [place] [facility] Mar 15, 2003 02:03 QUIT TOBACCO USE 1-7 [facility] PM YEARS AGO [place] [facility] Aug 24, 2002 11:07 HISTORY OF SMOKING [facility] [place] [facility] Feb 11, 2002 11:35 QUIT TOBACCO USE 1-7 [facility] AM YEARS AGO [place] [facility] May 21, 2001 01:11 HISTORY OF SMOKING [facility] PM quit 5 years ago [facility]
--- OUTSIDE RECORDS SUMMARY | 2022-05-27 20:48 | XMS_ITS ---
:1945 Author Organization Department [facility] rs Address [address] [place] [id number] Support Name Relationship Address Phone MAURA COELHO Unavailable [address] [place] [address] MAURA COELHO Unavailable [address] [facility] [address] GISELLE COELHO Unavailable [address] [facility] [place] [address] Insurance Providers: All historical and current Section [...] [employer] HEALTH NEW MEDICARE MCR Apr 17, [id number] [phone] Lauren SEVILLA PATIENT [facility] (WN) 2012 [id number] [facility] HEALTH NEW MEDICARE MCR Apr 17, [id number] [phone] Lauren SEVILLA PATIENT [facility] (WNR) [phone] [id number] [phone] [facility] Selected Encounter This section includes the information on record at OR for the Encounter. 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 Date/Time Primary/Secondary Diagnosis Name Provider Source Diagnosis May 08, 2022 PRIMARY Carcinoma in situ ROCKY LEE [facility] 03:50 PM of prostate MATTHEW F [facility] May 08, 2022 SECONDARY Hypertensive heart [facility]OCKY LEE [facility] 03:50 PM disease without [facility]W F [facility] heart failure Plan of Treatment: Future Appointments (+ 6 months) and Future Tests (+/- 45 days) The Plan of Treatment section includes future care activities for the [facility] This section includes future appointments and future orders which are active, pending orscheduled.Future Appointments This section includes appointments that were scheduled to occur 6 months from the date of the Encounter, up to a maximum of 20 appointments. The data comes from all OR treatment facilities. Appointment Date/Time Appointment Type Appointment Facili ty Name Jul 09, 2022 11:15 AM AMBULATORY - MEDICINE [facility] Jul 21, 2022 01:00 PM AMBULATORY MEDICINE [facility] Active, Pending, and Scheduled Orders This section includes a listing of several types of active, pending, and scheduled orders, including clinic medications orders, diagnostic test orders, procedure orders and consult orders; where the start date of the order is 45 days before the date of the Encounter or 45 days after the date of the Encounter. The data comes from all OR treatment facilities. Test Date/Time Test Type Test Details Facility Name May 08, 2022 03:51 PM Consult Order COMMUNITY [facility]ARE-UROLOGY [facility] Cons Display Screen Fabricator's Choice [facility] Lab Results: +/- 30 days of the encounter This section includes the Chemistry and Hematology Lab Results on record with OR for the patient. Radiology Reports and Pathology Reports are provided separately, in subsequent sections.Lab Results This section contains the Chemistry/Hematology Results that were resulted 30 days before or 30 daysafter the date of the Encounter. Date/Time Source Result Type Result - Unit Interpretation Reference Range Comment Apr 29, 2022 [facility] CBC AND DIFF Specimen Type: BLOOD 09:26 AM [facility] (AUTO) No comment enter ed. Ordering Provid er: APOORVA LEE Report Released Date/Time: Nov 07, 2021 03:26 PM Reporting Lab: [facility] [place] [facility] [address] [facility] [address] Performing Lab: [place] [facility] [place] [facility] [address] [facility] [address] WBC 4.37 L 4.50-11.00 RBC 4.62 4.23-5.66 HGB 13.6 12.8-17 HCT 40.4 39.2-50.4 MCV 87.4 82-99 MCHC 33.7 30.8-35.1 PLT 186 140-360 RDW-CV 12.5 12.0-16.0 Kendall, Abs 0.43 0.30-1.10 MCH 29.4 26.2-32.6 Neut % 63.6 Lymph % 23.1 Kendall % 9.8 Eos % 2.5 Baso % 0.5 Neut, Abs 2.78 2.20-7.60 Lymph, Abs 1.01 1.00-3.20 Eos, Abs 0.11 0.03-0.44 Baso, Abs 0.02 0.01-0.13 Immature Gran % 0.5 Immature Gran, Abs 0.02 0.00-0.06 Apr 29, 2022 [facility] TESTOSTERONE, TOTAL Specimen Ty pe: SERUM 09:26 AM [place] [facility] No comment enter ed. Ordering Provid er: APOORVA LEE Report Released Date/Time: Oct 30, 2021 11:07 AM Reporting Lab: [place] [facility] [place] [facility] [address] [facility] [address] Performing Lab: [place] [facility] [place] [facility] [address] [facility] [address] TESTOSTERONE, TOTAL 192.87 L 220.00-892 .00 Apr 29, 2022 09:26 AM [facility] [place] PSA Specimen Type: SERUM [facility] No comment enter ed. Ordering Provid er: APOORVA LEE Report Released Date/Time: Oct 30, 2021 11:07 AM Reporting Lab: [place] [facility] [place] [facility] [address] [facility] [address] Performing Lab: [facility] [place] [facility] [address] [facility] [address] PSA 0.11 0.00-4.00 Apr 29, 2022 [place] [facility] LIPID PANEL Specimen Type: SERUM 09:26 AM [place] [facility] FASTING No comment enter ed. Ordering Provid er: APOORVA LEE Report Released Date/Time: Oct 30, 2021 11:07 AM Reporting Lab: [facility] [address] [facility] [address] Performing Lab: [facility] [address] [facility] [address] CHOLESTEROL 156 <7-199 TRIGLYCERIDE 87 0-150 LDL calculated 96 0-129 CHOL/HDL 3.6 HDL CHOLESTEROL 43 40-60 Apr 29, 2022 09:26 [place] [facility] LIVER FUNCTION Specimen Typ e: SERUM AM [place] [facility] No comment enter ed. Ordering Provid er: APOORVA LEE Report Released Date/Time: Oct 30, 2021 11:07 AM Reporting Lab: [facility] [address] [facility] [address] Performing Lab: [facility] [address] [facility] [facility] [address] PROTEIN,TOTAL 6.2 6.0-8.3 ALBUMIN 3.7 3.5-5.0 ALKALINE PHOSPHATASE 53 40-150 AST 34 5-34 ALT 27 <6-55 BILIRUBIN, TOTAL 0.6 0.2-1.2 Apr 29, 2022 [facility] BASIC METABOLIC Specimen Type: SERUM 09:26 AM [facility] PANEL (fasting) No comment enter ed. Ordering Provid er: APOORVA LEE Report Released Date/Time: Oct 30, 2021 11:07 AM Reporting Lab: [facility] [address] [facility] [address] Performing Lab: [facility] [address] [facility] [address] UREA NITROGEN 16 7-25 GLUCOSE 107 H 65-100 SODIUM 139 135-145 POTASSIUM 4.4 3.5-5.0 CHLORIDE 108 100-110 CO2 22 20-30 CREATININE, Serum 0.74 0.50-1.40 eGFR(CKD-EPI 2020) >90 >60 Vital Signs: All taken on the encounter date This section contains inpatient and outpatient Vital Signs collected on the date of the Encounter. Date/Time Temperature Pulse Blood Respiratory SP02 Pain Height Weight Roly dy Source Pressure Rate Mass Index Sep 22, 98.5 F 77 170/100 16 /min 96 % 198 lb 31 OR 2021 03:07 /min mm[Hg] CN[facility] PM [facility] [place] [facility] Social History: Smoking Status (Most current) and Tobacco Use (All prior to encounter date) This section includes the most current, and the historical, smoking and tobacco-related health factors from the OR facility where the Encounter took place.Current Smoking Status This section includes the most current smoking, or tobacco-related health factor, from the OR facility where the Encounter took place. Date/Time Current Smoking Status Comment Facility Jul 31, 2021 09:41 AM VA-TOBACCO FORMER USER OR CNTRL W[facility]N [facility] Tobacco Use History This section includes a history of the smoking, or tobacco- related health factors, that were collected on or before the date of the Encounter. The data comes from the OR facility where the Encounter took place. Date/Time Smoking Status/Tobacco Comment Facility Use Jul 31, 2021 09:41 VA-TOBACCO QUIT 15 YRS OR [facility] AM MORE [place] [facility] Jun 29, 2020 11:00 VA-TOBACCO FORMER USER OR CNT RL WSTRN AM [place] [facility] Jun 29, 2020 11:00 VA-TOBACCO QUIT 15 YRS OR [facility] AM MORE [place] [facility] Feb 10, 2019 10:14 VA-TOBACCO FORMER USER [facility] CNT [facility] AM [place] [facility] Feb 10, 2019 10:14 VA-TOBACCO QUIT 15 YRS OR [facility] AM MORE [place] [facility] Nov 27, 2017 11:12 QUIT TOBACCO USE > 7 VA [facility] AM YEARS AGO [place] [facility] Nov 05, 2016 11:01 QUIT TOBACCO USE > 7 VA [facility] AM YEARS AGO [place] [facility] Sep 17, 2015 01:03 QUIT TOBACCO USE > 7 VA [facility] PM YEARS AGO stopped 20 years ago [place] [facility] Feb 24, 2005 10:09 HISTORY OF SMOKING [facility] AM [facility] May 28, 2004 08:08 QUIT TOBACCO USE > 7 VA CN[facility] AM YEARS AGO [facility] Nov 27, 2003 01:12 HISTORY OF SMOKING [facility] Mar 15, 2003 02:03 QUIT TOBACCO USE 1-7 VA CN[facility]L W[facility]N PM YEARS AGO [facility] Aug 24, 2002 11:07 HISTORY OF SMOKING [facility] W [facility] AM [facility] Feb 11, 2002 11:35 QUIT TOBACCO USE 1-7 VA CN[facility]L W[facility] AM YEARS AGO [facility] May 21, 2001 01:11 HISTORY OF SMOKING [facility] W [facility] PM quit 5 years ago [facility] Encounter Notes: All associated encounter notes This section contains the clinical notes associated to the Encounter. Date/Time Encounter Note(s) Provider Source May 08, 2022 03:44 PHYSICIAN PRODUCTION DISPATCHER NOTE: APOORVA LEE CNTRL WSTRN LOCAL TITLE: RAMIREZ [facility]ORA F [facility] STANDARD TITLE: PHYSICIAN PRODUCTION DISPATCHER NOTE DATE OF NOTE: MAY 08, 2022@15:44 ENTRY DATE: MAY 08, 2022@15:44:05 AUTHOR: APOORVA LEE EXP COSIGNER: URGENCY: STATUS: COMPLETED RAMIREZ NOTE Has ADDENDA CC/HPI: 76 year old MALE here in follow-up for; prostate cancer with ED. He notes that a half t o 3/4 of a Cialis is not very helpful. He will try a whole tab and message me if this is not helpful. CC urology consult entered for f/u. htn, ate at [facility] today! He agrees to watch his sa lt intake. Labetolol form outside, hctz here. Add amlodipine, bp check two weeks. dyslipidemia, change form si mvastatin to atorvastatin due to ADR to amlodipine. Review of systems: Patient reports no [facility], nor in meds or any admissions. Active [...] * 13. Hypertrophy (Benign) of Prostate without Urinary obstruction TURP 10/2101 Dr Stephens at [facility]. 14. GERD * 15. Insomnia * [...] MOUTH TWICE ACTIVE DAILY 12 Total Medications 98.5 F [36.9 C] (05/08/2022 15:07) 77 (05/08/2022 15:07) 16 (05/08/2022 15:07) 170/100 (05/08/2022 15:07) 0 (11/07/2021 14:59) 67 in [170.2 cm] (11/07/2021 14:59) 198 lb [89.81 kg] (05/08/2022 15:07) BMI: 31.1 Neuro: Alert and oriented times three, grossly n onfocal, nasolabial folds intact. Recent labs reviewed with patient today:yes Homelessness/Food Insecurity Screen: In the past 2 months, have you been living in s table housing that you own, rent, or stay in as part of a household? Y es - Living in stable housing. Are you worried or concerned that in the next 2 months you may NOT have stable housing that you own, rent, or stay in a s part of a household? No - Not worried about housing near future The reports the following: Within the past 12 months, you worried whether your food would run out before you got money to buy more. Never true Within the past 12 months, the food you bought just didn't last and you didn't have money to get more. Never true Please mail graph of his PSA values to him with a note asking him to share with his urologist. Please also request his recent colonosco py report from [facility]. /rajesh/ Apoorva Lee PA-C STAFF PHYSICIAN PRODUCTION DISPATCHER Signed: 05/08/2022 15:50 Receipt Acknowledged By: 05/09/2022 07:50 /rajesh/ GISSELL ALVARADO UNDERLAY STITCHER GISSELL Brannon JENNY CLARKN 05/14/2022 ADDENDUM STATUS: COMPLETED Follow Up Colonoscopy: Colonoscopy is due based on information availab le to this reminder. Prior/outside Colonoscopy results: DR Opal Alvarado Date: January 03, 2022 Due to patient's age, risk level, and/or co-mor bid conditions, discontinuation of asymptomatic colorectal canc er screening/surveillance is recommended. This recommendation has been discussed with the patient and/or guardian Comment: by DR Joseph. /rajesh/ Apoorva Lee PA-C STAFF PHYSICIAN PRODUCTION DISPATCHER Signed: 05/15/2022 08:27 May 08, 2022 03:06 PREVENTIVE MEDICINE NURSING NOTE: ANTONY ALVARADO OR CNTRL W[facility] PM LOCAL TITLE: CLINICAL REMINDERS/NURSING R E [place] [facility] STANDARD TITLE: PREVENTIVE MEDICINE NURSING NOTE DATE OF NOTE: MAY 08, 2022@15:06 ENTRY DATE: MAY 08, 2022@15:06:07 AUTHOR: GISSELL ALVARADO EXP COSIGNER: URGENCY: STATUS: COMPLETED Advance Directive Screen: Patient has an up-to-date Advance Directive at an outside, non-va facility and was asked to forward a copy to his /her clinician. Suicide Screen: C-SSRS Screening Ruso Suicide Severity Rating Scale (C-SSRS) screener 1. Over the past month, have you wished you wer e or wished you could go to sleep and not wake up? No 2. Over the past month, have you had any actual thoughts of killing yourself? No 3. Over the past month, have you been thinking about how you might do this? Response not required due to responses to other questions. 4. Over the past month, have you had these thou ghts and had some intention of acting on them? Response not required due to responses to other questions. 5. Over the past month, have you started to wor k out or worked out the details of how to kill yourself? Response not required due to responses to other questions. 6. If yes, at any time in the past month did yo u intend to carry out this plan? Response not required due to responses to other questions. 7. In your lifetime, have you ever done anythin g, started to do anything, or prepared to do anything to end you r life (for example, collected pills, obtained a gun, gave away valu lilian, went to the roof but didn't jump)? No 8. If YES, was this within the past 3 months? Response not required due to responses to other questions. Follow Up Colonoscopy: Colonoscopy is due based on information availab le to this reminder. /rajesh/ GISSELL ALVARADO LPN Signed: 05/08/2022 15:10
--- NOTE | 2022-05-27 21:00 | ECG_ITS ---
Test Reason : BACK PAIN Blood Pressure : / mmHG Vent. Rate : 076 BPM Atrial Rate : 076 BPM P-R Int : 156 ms QRS Dur : 094 ms QT Int : 370 ms P-R-T Axes : 036 005 010 degrees QTc Int : 416 ms Normal sinus rhythm RSR' or QR pattern in V1 suggests right ventricular conduction delay Nonspecific ST abnormality Lateral leads Abnormal ECG When compared with ECG of 26-JAN-2015 12:20, ST more depressed Lateral leads Referred By: Bakari Lu Electronically Signed By:LOU ELIZABETH MD
[2022-05-27] MEDS: traMADoL HCL 50 MG TABLET PO (21:55)
[2022-05-27 21:57] VITALS: BP 175/89; PULSE 70; RESP 16; TEMP 36.9; O2SAT 96
[2022-05-27 22:29] LABS: MANUAL DIFF FLAG NO
[2022-05-27 22:32] LABS: Basophils Percent Auto 0.4 % (0-2); Eosinophils Absolute Auto 0.1 X10*3/uL (0.0-0.4); Eosinophils Percent Auto 1.8 % (0-4); Hematocrit 46.5 % (42.0-52.0); Hemoglobin 15.9 g/dl (14.0-18.0); Imm Gran Abs Auto 0.02 X10*3/uL (0.00-0.03); Imm Gran Pct Auto 0.3 % (0.0-0.4); Lymphocytes Absolute Auto 1.7 X10*3/uL (1.2-4.9); Lymphocytes Percent Auto 23.7 % (20-40); Mean Corpuscular HGB Conc 34.2 g/dl (31.0-36.0); Mean Corpuscular Hemoglobin 29.7 pg (27.0-33.0); Mean Corpuscular Volume 86.8 fL (80.0-98.0); Mean Platelet Volume 9.3 fL (9.4-12.4); Monocytes Absolute Auto 0.7 X10*3/uL (0.1-1.2); Monocytes Percent Auto 9.3 % (2-11); Neutrophils Absolute Auto 4.6 x10*3/uL (2.0-8.3); Neutrophils Percent Auto 64.5 % (45-73); Platelet Count 213 X10*3/uL (160-400); Red Blood Count 5.36 X10*6/uL (4.60-5.80); Red Cell Distribution Width 12.7 % (11.0-16.0); White Blood Count 7.1 X10*3/uL (4.8-10.8)
[2022-05-27 22:48] LABS: Alanine Aminotransferase 29 U/L (0-40); Albumin Level 4.6 g/dL (3.5-5.0); Alkaline Phosphatase 68 U/L (39-117); Anion Gap 17 (12-20); Aspartate Amino Transferase 30 U/L (5-37); Bilirubin Total 1.2 mg/dL (0.0-1.0); Blood Urea Nitrogen 12 mg/dL (9-16); Calcium 10.4 mg/dL (8.4-10.2); Carbon Dioxide 26 mmol/L (22-29); Chloride 100 mmol/L (96-108); Creatinine Clr Calc Pharmacy 96.6; Estimated Glomerular Filt Rate > 60; Glucose Random 101 mg/dL (60-115); Lipase 45 U/L (8-78); Magnesium 1.9 mg/dL (1.6-2.6); Potassium 3.8 mmol/L (3.3-5.1); Sodium 139 mmol/L (135-145); Total Protein 7.6 g/dL (6.5-8.0)
[2022-05-27 22:57] LABS: COVID-19 Test Negative (Negative)
[2022-05-27 23:27] VITALS: BP 141/91; PULSE 75; RESP 18; O2SAT 96
[2022-05-28 00:13] VITALS: RESP 16
== END 2022-05-28 00:18 | disposition home or self-care (01) ==
PROVIDERS: Physician Assistant; Emergency Provider Emergency Medicine; PCP Nurse Practitioner Family
DX: M54.50 Low back pain, unspecified (principal); I10 Essential (primary) hypertension; N20.0 Calculus of kidney; M54.6 Pain in thoracic spine; R10.9 Unspecified abdominal pain; Z20.822 Contact with and (suspected) exposure to COVID-19; Z79.899 Other long term (current) drug therapy; Z87.891 Personal history of nicotine dependence
CPT/HCPCS: 36415; 71045; 72128; 74176; 80053; 83690; 83735; 84484; 85025; 87635; 93005; 99284

== ENCOUNTER → 2022-06-04 13:03 | Outpatient (BNVA) | payer MEDICARE, SELFPAY | PROVIDERS: PCP Nurse Practitioner Family; Visit Provider Nurse Practitioner Family | DX: I10 Essential (primary) hypertension (principal); I71.20 Thoracic aortic aneurysm, without rupture, unspecified; M54.41 Lumbago with sciatica, right side | CPT/HCPCS: 99212 ==

== ENCOUNTER → 2022-07-03 13:59 | Outpatient (BNVA) | payer MEDICARE, SELFPAY | PROVIDERS: PCP Nurse Practitioner Family; Visit Provider Internal Medicine Endocrinology, Diabetes & Metabolism | DX: M81.0 Age-related osteoporosis without current pathological fracture (principal); E29.1 Testicular hypofunction; M54.41 Lumbago with sciatica, right side | CPT/HCPCS: 99212 ==

== ENCOUNTER → 2022-07-09 11:03 | Outpatient (BNVA) | payer MEDICARE, SELFPAY | PROVIDERS: PCP Nurse Practitioner Family; Visit Provider Urology | DX: N52.35 Erectile dysfunction following radiation therapy (principal); C61 Malignant neoplasm of prostate; E29.1 Testicular hypofunction | CPT/HCPCS: 51798; 99212 ==

== ENCOUNTER 2022-08-04 10:12 | Day surgery (SDC) | payer OTHER, SELFPAY ==
--- NOTE | 2022-08-01 09:20 | P.CONAN_ITS ---
Documented by User: Marline Garcia NP 08/01/22 09:25 HPI - Anesthesia Eval Consult details Narrative: 76yo M for Penile Prosthesis Insertion PMFSH Active Problems Active Problems: All Active Problems (Updated 05/29/22 @ 00:03 by Arash Giron) Elevated fasting glucose (Acute) Fatty liver (Acute) Low back pain with right-sided sciatica (Acute) Urinary urgency (Acute) Erectile dysfunction due to arterial insufficiency (Acute) Erectile dysfunction due to and not concurrent with radiation therapy (Acute) Encounter to establish care (Acute) Borderline glaucoma (Acute) Thoracic back pain (Acute) Rib pain (Acute) Abdominal pain (Acute) Generalized abdominal discomfort (Acute) Hyperlipidemia (Acute) Fracture, thoracic vertebra, compression (Acute) Lumbar degenerative disc disease (Acute) Essential hypertension (Acute) Ascending aortic aneurysm (Acute) Prostate CA (Acute) Annual physical exam (Acute) Normal colonoscopy (Acute) Hypogonadism male (Acute) Osteoporosis (Acute) Past Medical History Medical History Allergic rhinitis Annual physical exam Ascending aortic aneurysm BPH (benign prostatic hyperplasia) Essential hypertension Fracture, thoracic vertebra, compression Hearing problem HTN (hypertension) Hyperlipidemia Hypogonadism male Insomnia Lumbar degenerative disc disease Normal colonoscopy Osteoporosis Polycythemia Prostate CA Family History Family History Father Alzheimer disease Colon cancer Colon polyps Mother No problems noted. Other Mental health disorder Family history of problems with anesthesia: No Surgical History Surgical History (Updated 08/04/22 @ 10:23 by Flaquita Tidwell RN) History of colon resection History of esophagogastroduodenoscopy (EGD) History of repair of hiatal hernia Hx of appendectomy Hx of colonoscopy Hx of cystoscopy Hx of hernia repair Hx of nasal septoplasty Hx of transurethral resection of prostate History of Problems with Anesthesia: No Social History Social History Housing: House Alcohol intake: current Alcohol intake frequency: holidays/special occasions only Patient Tobacco Use Status: Former Tobacco user Quit Date: 30 yrs ago e-Cigarette/Vaping Use: Never Used Second Hand Smoke Exposure: No Use of substances other than those prescribed or required for medical reasons: No Are you DNR?: Yes Advance Directives: No Advance Directives Information Provided: Yes service: Yes Current occupational status: employed and retired Cognitive needs: No Hearing needs: Yes Vision needs: No Meds Allergies Allergy/AdvReac Type Severity Reaction Status Date / Time amoxicillin [From Augmentin] AdvReac Severe SEVERE Verified 08/04/22 11:04 DIARRHEA clavulanic acid AdvReac Severe SEVERE Verified 08/04/22 11:04 [From Augmentin] DIARRHEA Sulfa (Sulfonamide AdvReac Intermediate MOUTH Verified 08/04/22 11:04 Antibiotics) SORES, RASH Home Medications Medication Instructions Recorded Confirmed Last Taken Type multivitamin 1 tab PO DAILY 08/28/20 08/04/22 Unknown History zolpidem 5 mg tablet (Ambien) 10 mg PO BEDTIME PRN rash 08/28/20 08/04/22 Unknown History amlodipine 2.5 mg tablet 2.5 mg PO DAILY 05/21/22 08/04/22 Unknown History atorvastatin 20 mg tablet 20 mg PO DAILY 05/21/22 08/04/22 Unknown History hydrochlorothiazide 25 mg tablet 25 mg PO DAILY 05/21/22 08/04/22 Unknown History dicyclomine 10 mg capsule 10 mg PO TID 06/04/22 08/04/22 Unknown History labetalol 100 mg tablet 100 mg PO BID 06/04/22 08/04/22 Unknown History Exam Exam Date and Time: August 01, [id number] Pertinent Lab Results Pertinent Lab Results: Laboratory Tests 05/27/22 05/27/22 22:20 22:20 WBC 7.1 Hgb 15.9 Hct 46.5 Plt Count 213 Sodium 139 Potassium 3.8 Chloride 100 Carbon Dioxide 26 BUN 12 Creatinine 0.79 Narrative Narrative: EKG Vent. Rate : 076 BPM ? ? Atrial Rate : 076 BPM ?? P-R Int : 156 ms? QRS Dur : 094 ms ? ? QT Int : 370 ms ? ? ? P-R-T Axes : 036 005 010 degrees ?? QTc Int : 416 ms ? Normal sinus rhythm RSR' or QR pattern in V1 suggests right ventricular conduction delay Nonspecific ST abnormality Lateral leads Abnormal ECG When compared with ECG of 26-JAN-2015 12:20, ST more depressed Lateral leads ECHO 01/2022 Conclusions: - The left ventricular systolic function is normal.? The ? calculated ejection fraction is 64% by biplane method. ? - No obvious valvular pathology seen on this study.? - There is mild dilatation of the sinuses of Valsalva measuring? 4.16 cm and mild dilatation of the ascending aorta measuring 4.00 cm.? ? Assessment and Plan Assessment Anesthesia Assessment: Chart Reviewed Final Anesthetic Review Family History of Problems with Anesthesia: No History of Problems with Anesthesia: No Documented by User: Fran Sales MD 08/04/22 17:48 [facility] Past Medical History Medical History Allergic rhinitis Annual physical exam Ascending aortic aneurysm BPH (benign prostatic hyperplasia) Essential hypertension Fracture, thoracic vertebra, compression Hearing problem HTN (hypertension) Hyperlipidemia Hypogonadism male Insomnia Lumbar degenerative disc disease Normal colonoscopy Osteoporosis Polycythemia Prostate CA Functional capacity: independent ambulation Family History Family History Father Alzheimer disease Colon cancer Colon polyps Mother No problems noted. Other Mental health disorder Surgical History Surgical History (Updated 08/04/22 @ 10:23 by Flaquita Tidwell RN) History of colon resection History of esophagogastroduodenoscopy (EGD) History of repair of hiatal hernia Hx of appendectomy Hx of colonoscopy Hx of cystoscopy Hx of hernia repair Hx of nasal septoplasty Hx of transurethral resection of prostate Social History Social History Housing: House Alcohol intake: current Alcohol intake frequency: holidays/special occasions only Patient Tobacco Use Status: Former Tobacco user Quit Date: 30 yrs ago e-Cigarette/Vaping Use: Never Used Second Hand Smoke Exposure: No Use of substances other than those prescribed or required for medical reasons: No Are you DNR?: Yes Advance Directives: No Advance Directives Information Provided: Yes service: Yes Current occupational status: employed and retired Cognitive needs: No Hearing needs: Yes Vision needs: No Meds Allergies Allergy/AdvReac Type Severity Reaction Status Date / Time amoxicillin [From Augmentin] AdvReac Severe SEVERE Verified 08/04/22 11:04 DIARRHEA clavulanic acid AdvReac Severe SEVERE Verified 08/04/22 11:04 [From Augmentin] DIARRHEA Sulfa (Sulfonamide AdvReac Intermediate MOUTH Verified 08/04/22 11:04 Antibiotics) SORES, RASH Home Medications Medication Instructions Recorded Confirmed Last Taken Type multivitamin 1 tab PO DAILY 08/28/20 08/04/22 Unknown History zolpidem 5 mg tablet (Ambien) 10 mg PO BEDTIME PRN rash 08/28/20 08/04/22 Unknown History amlodipine 2.5 mg tablet 2.5 mg PO DAILY 05/21/22 08/04/22 Unknown History atorvastatin 20 mg tablet 20 mg PO DAILY 05/21/22 08/04/22 Unknown History hydrochlorothiazide 25 mg tablet 25 mg PO DAILY 05/21/22 08/04/22 Unknown History dicyclomine 10 mg capsule 10 mg PO TID 06/04/22 08/04/22 Unknown History labetalol 100 mg tablet 100 mg PO BID 06/04/22 08/04/22 Unknown History Exam Airway Mallampati Class: III TM Dist: >3cm Neck ROM: Full Loose/Missing/Broken Teeth: Yes (Implants ) Heart: S1,S2 Lungs: b/l breath sounds Assessment and Plan Assessment Anesthesia Assessment: Anesthesia Plan Discussed Final Anesthetic Review NPO: Yes ASA Class: III Final Preanesthetic Review: Meds/Allgs Chart Reviewed, Consent Obtained/Reviewed and Anes Risks/Benef Reviewed Patient Risk: Intermediate Procedure Risk: Intermediate Anesthetic Plan Anesthetic Plan: GA Disposition: Standard PACU
[2022-08-04] VITALS (17 sets, daily range): BP systolic 108–149; BP diastolic 63–89; PULSE 59–78; RESP 15–20; TEMP 36–36.4; O2SAT 95–98; BMI 28.0
[2022-08-04] MEDS: Lactated Ringers 1,000 ML 100 ML IVCONT (11:06)
[2022-08-04] MEDS: vancomycin HCL 1,500 MG in 0.9 % Sodium Chloride 500 ML 333.33 MG IV (11:18)
--- NOTE | 2022-08-04 11:47 | MHC.SHP ---
Pre-Procedural Eval Section A Date of Service: 08/04/22 The patient is an INPATIENT: No Changes since office visit: No Cold of Flu in the past 2 weeks, No New Medical Problems, No Changes in Medication and No Patient answered all questions The History & Physical has been completed within 30 days and I have reviewed it.: Yes Section B Chief Complaint: Erectile dysfunction following radiation therapy Details of Present Illness: here for penile prosthetic placement Relevant Social History: None Present Medications: see Short Stay Collaborative assessment Medical History: No relevant PMH History of Previous Operations: No relevant previous surgery Allergies: Allergies Allergy/AdvReac Type Severity Reaction Status Date / Time amoxicillin [From Augmentin] AdvReac Severe SEVERE Verified 08/04/22 11:04 DIARRHEA clavulanic acid AdvReac Severe SEVERE Verified 08/04/22 11:04 [From Augmentin] DIARRHEA erythromycin base AdvReac Intermediate GI UPSET Verified 08/04/22 11:04 [ERYTHROMYCIN BASE] Sulfa (Sulfonamide AdvReac Intermediate MOUTH Verified 08/04/22 11:04 Antibiotics) SORES, RASH Review of Systems Sugical H&P ROS: Negative: Constitution, Cardiovascular, Respiratory, Neurological, Psychiatric, Hem-Onc, Allergic/Immunologic, Gastrointestinal, Genitourinary, Musculoskeletal, Integumentary, Endocrine and Eyes/Ears/Nose/Throat Exam Surgical H&P Exam: Normal: HEENT, Normal: Heart, Normal: Lungs, Normal: Extremities, Normal: Abdomen, Normal: Skin and Normal: Neurological Plan Diagnosis/Plan: Unchanged ( penile prosthetic placement) I have reviewed the history and physical and performed a pertinent physical examination on my patient. No changes have occurred unless specified. Time Spent With Patient Time: Total time managing care of this patient today ____ minutes.
--- NOTE | 2022-08-04 14:51 | W.PM.OPN ---
Operative Note Operative Note Date of Service: 08/04/22 Narrative: PreOperative Diagnosis: Erectile dysfunction Post Operative Diagnosis: Erectile dysfunction Procedure: Placement of inflatable penile prosthetic Surgeon: Dr Jd Ayers Anesthesia: General Indications for procedure: Progressive erectile dysfunction in setting of diabetes. Non responsive to oral or injectable medications. Maximum doses have been trialed. Has completed minimum of 6 weeks with penile vacuum pump in order to maximize potential placement. Is aware of the risks and benefits particularly related to mechanical failure, infection, loss of sensation. Procedure: After informed consent was verified the patient was brought to the operating room and placed in a supine position. Anesthesia was administered per protocol. The patient was shaved with clippers, and prepped with cholhexidine based solution. He was draped in a sterile fashion. Safety pause time-out performed. Standard antibiotic per modified 2019 guideline - IV vancomycin, gentamicin and fluoroquinolone. Mendoza catheter was placed on the field. Bladder was drained. [place] retractor with penile support was placed. Local antibiotics infiltrated horizontally 1,5cm proximal from the penoscrotal junction. Dorsal nerve block was placed inferior to the symphsis pubis in the midline and perineal/crural block was placed 1 fingerbreadth lateral to the midline angled at 45 degrees. A horizontal scrotal incision was made and taken down to the tunica. Dissection was performed 1st on the left side and then on the right side to fully expose the proximal tunica of the corpora. Midline dissection was required to lift off the median attachments. At this point stay hooks were placed. A double row of 3-0 Vicryl stay sutures were placed through the distal tunica with 1cm spacing and labeled and marked bilaterally. Firstly on the left side an incision was made between the 2 rows of stay sutures through the tunica. This was approximately 2.5 cm in length. Using Hegar dilators the corporal body was dilated until it could accept a 13 Hegar dilator. A similar dissection was repeated on the right-hand side. After dilation each corporal body were washed with antibiotic normal saline. At this point the measuring device was introduced. Posterior measured at 8 cm and the front measured approximately 12 cm on the left. On the right 8 cm and 12 cm respectively. Based on the considerations from dilatation a penile prosthetic [employer] 18 cm CX with 2cm was used. Prior to prosthetic preparation using blunt dissection the left (right side had hernia repair) inguinal canal was palpated and using a Venus clamp a small hole was punched in the posterior wall of the medial aspect of the inguinal canal. This was enlarged with the tip of the index finger. A flat reservoir was then placed through this hole into the preperitoneal, retro body wall space. This was filled with 95 cc and had minimal pressure. Clamps were placed. The introducer needle was used to thread the distal tip thread from the prostatic on the left side. This was then placed through the corporal defect and the needle advanced out through the glans of the penis. The prosthetic was then placed into the corporal body with the posterior aspect 1st using the enclosed pusher device. Once the posterior aspect had been introduced the anterior aspect was then introduced and brought out to the distal portion of the corpora. This was done 1st on the left side and then repeated on the right side. The prosthetic was then inflated approximately 80 cc of normal saline. The penile prosthetic was deflated. The stay sutures through the tunica were then secured bilaterally The scrotum was irrigated. The excess tubing was cut. The ends were spiritzed with fluid. The compression fittings were placed and locked using the compression clamp. Effective length of tubing had been placed in the clamp and the 2 ends were now secured. The penile prosthetic was then refilled to ensure proper function and adequate flow between the reservoir and the prosthetic. Blunt dissection was performed to create a scrotal pocket. The pump was placed into the scrotal pocket and held using a clamp. 3-0 Vicryl was then used to secure tissue so the pump was kept in the dependent position. Priuor to tissue reapproaximation a 7mm flat bulb drain was placed exiting from the left side. Tissue was reapproximated with 3-0 Vicryl in both the horizontal and then vertical fashion. At least 2 layers were placed over all tubing. Skin was closed using interrupted 5-0 chromic sutures. The wounds were cleaned and dried and a sterile dressing placed that kept the penis in an upright position pointing towards the chin. A modified Mummy dressing was placed. Two pumps had been placed into the prosthetic so it is partially filled. A cap was left on the Mendoza catheter to allow drainage for the next 48 hours. He tolerated the procedure well was extubated in operating room transferred in stable condition to the recovery area. Drains: Sixteen Greek Mendoza catheter, 7 flat drain Pathology: None Drains: Sixteen Greek Mendoza catheter, 7 flat drain
[2022-08-04] MEDS: fentaNYL citrate/PF 100 MCG/2 ML VIAL 25 MCG IVPUSH ×3 (15:34→15:46)
[2022-08-04] MEDS: oxyCODONE HCl Immed Release 5 MG TABLET PO (15:35)
== END 2022-08-04 17:50 | disposition home or self-care (01) ==
PROVIDERS: PCP Nurse Practitioner Family; Visit Provider Urology
PROC: (CPT 54405; principal; 2022-08-04 11:50)
DX: N52.35 Erectile dysfunction following radiation therapy (principal); N52.1 Erectile dysfunction due to diseases classified elsewhere; E29.1 Testicular hypofunction; Z85.46 Personal history of malignant neoplasm of prostate; N40.1 Benign prostatic hyperplasia with lower urinary tract symptoms; R35.1 Nocturia; R39.15 Urgency of urination; I10 Essential (primary) hypertension; I71.21 Aneurysm of the ascending aorta, without rupture; E78.5 Hyperlipidemia, unspecified; E11.9 Type 2 diabetes mellitus without complications; M81.0 Age-related osteoporosis without current pathological fracture; D75.1 Secondary polycythemia; Z79.899 Other long term (current) drug therapy; Z88.0 Allergy status to penicillin; Z88.1 Allergy status to other antibiotic agents; Z87.891 Personal history of nicotine dependence; Z90.49 Acquired absence of other specified parts of digestive tract; Z88.2 Allergy status to sulfonamides; Z66 Do not resuscitate; Z77.098 Contact with and (suspected) exposure to other hazardous, chiefly nonmedicinal, chemicals
CPT/HCPCS: 54405; C1813; J0131; J1580; J1956; J2370; J2405; J2550; J2795; J3010; J3370

== ENCOUNTER → 2022-08-05 13:13 | Outpatient (BNVA) | payer OTHER, SELFPAY | PROVIDERS: PCP Nurse Practitioner Family; Visit Provider Urology | DX: N52.35 Erectile dysfunction following radiation therapy (principal) | CPT/HCPCS: 51700 ==

== ENCOUNTER → 2022-08-06 11:31 | Outpatient (BNVA) | payer OTHER, SELFPAY | PROVIDERS: PCP Nurse Practitioner Family; Visit Provider Urology | DX: Z13.89 Encounter for screening for other disorder (principal) ==

== ENCOUNTER → 2022-08-21 11:03 | Outpatient (BNVA) | payer OTHER, SELFPAY | PROVIDERS: PCP Nurse Practitioner Family; Visit Provider Urology | DX: C61 Malignant neoplasm of prostate (principal); N20.0 Calculus of kidney; N52.35 Erectile dysfunction following radiation therapy | CPT/HCPCS: 99212 ==

== ENCOUNTER 2022-08-25 08:23 | Outpatient (REF) | payer OTHER, SELFPAY ==
--- NOTE | ~2022-08-25 | US_ITS ---
EXAMINATION: US RETROPERITONEAL LIMITED (RENAL ONLY) CLINICAL INFORMATION: Calculus of kidney. COMPARISON: CT abdomen and pelvis without contrast 05/27/2022. Ultrasound abdomen complete 12/27/2021. TECHNIQUE: Real-time imaging of the kidneys. FINDINGS: RIGHT KIDNEY: 12.9 x 6.5 x 5.9 cm (SAG x AP x TRV). The kidney is normal in size, contour, and echogenicity. Renal cortical thickness is normal. No hydronephrosis. Midpole 3.5 x 2.4 x 3 cm anechoic avascular simple appearing cyst. Midpole 1.5 x 1.5 x 1.3 cm anechoic cyst with posterior wall calcifications, correlating with Bosniak 2F. Midpole 0.3 cm nonobstructing calculus. LEFT KIDNEY: 12.0 x 6.0 x 5.6 cm (SAG x AP x TRV). The kidney is normal in size, contour, and echogenicity. Renal cortical thickness is normal. No hydronephrosis. Upper pole anechoic avascular 0.7 cm cyst. Midpole 0.9 x 0.5 x 1.1 cm complex cyst with wall calcifications, Bosniak 2F. Multiple echogenic foci, midpole 0.3 cm, midpole 0.3 cm lower pole 0.2 cm, from nonobstructing calculi. US/US renal BI IMPRESSION: 1. Right renal mildly complex 1.5 cm cyst with posterior wall calcifications, Bosniak 2F. Left renal mildly complex 1.1 cm midpole cyst with wall calcifications, Bosniak 2F. Recommend 6-month follow-up. 2. Bilateral nonobstructing renal calculi. No hydronephrosis.
== END 2022-08-25 08:24 | disposition home or self-care (01) ==
LOC: HO.US 08:23
PROVIDERS: PCP Nurse Practitioner Family; Visit Provider Urology
DX: N20.0 Calculus of kidney (principal)
CPT/HCPCS: 76775

== ENCOUNTER → 2022-09-18 09:00 | Outpatient (BNVA) | payer OTHER, SELFPAY | PROVIDERS: PCP Nurse Practitioner Family; Visit Provider Urology | DX: N20.0 Calculus of kidney (principal); N52.35 Erectile dysfunction following radiation therapy | CPT/HCPCS: 99212 ==

== ENCOUNTER → 2022-10-03 11:29 | Outpatient (BNVA) | payer MEDICARE, SELFPAY | PROVIDERS: PCP Nurse Practitioner Family; Visit Provider Internal Medicine Endocrinology, Diabetes & Metabolism | DX: M81.0 Age-related osteoporosis without current pathological fracture (principal); M54.41 Lumbago with sciatica, right side; E29.1 Testicular hypofunction | CPT/HCPCS: 99212 ==

== ENCOUNTER 2022-10-15 09:26 | Outpatient (REF) | payer MEDICARE, SELFPAY ==
[2022-10-15 09:38] LABS: MANUAL DIFF FLAG NO
[2022-10-15 10:44] LABS: Basophils Percent Auto 0.6 % (0-2); Eosinophils Absolute Auto 0.1 X10*3/uL (0.0-0.4); Eosinophils Percent Auto 2.7 % (0-4); Hematocrit 46.5 % (42.0-52.0); Hemoglobin 15.5 g/dl (14.0-18.0); Imm Gran Abs Auto 0.02 X10*3/uL (0.00-0.03); Imm Gran Pct Auto 0.4 % (0.0-0.4); Lymphocytes Percent Auto 21.8 % (20-40); Mean Corpuscular HGB Conc 33.3 g/dl (31.0-36.0); Mean Corpuscular Hemoglobin 29.9 pg (27.0-33.0); Mean Corpuscular Volume 89.8 fL (80.0-98.0); Mean Platelet Volume 9.7 fL (9.4-12.4); Monocytes Absolute Auto 0.4 X10*3/uL (0.1-1.2); Monocytes Percent Auto 8.8 % (2-11); Neutrophils Absolute Auto 3.1 x10*3/uL (2.0-8.3); Neutrophils Percent Auto 65.7 % (45-73); Platelet Count 191 X10*3/uL (160-400); Red Blood Count 5.18 X10*6/uL (4.60-5.80); Red Cell Distribution Width 12.9 % (11.0-16.0); White Blood Count 4.8 X10*3/uL (4.8-10.8)
[2022-10-15 10:57] LABS: Estimated Average Glucose 117 mg/dL; Hemoglobin A1C 150.7127 umol/L; Hemoglobin A1c % 5.7 %
[2022-10-15 11:32] LABS: Alanine Aminotransferase 29 U/L (0-40); Alkaline Phosphatase 63 U/L (39-117); Anion Gap 13 (12-20); Aspartate Amino Transferase 22 U/L (5-37); Bilirubin Total 0.9 mg/dL (0.0-1.0); Blood Urea Nitrogen 14 mg/dL (9-16); Calcium 9.3 mg/dL (8.4-10.2); Carbon Dioxide 27 mmol/L (22-29); Chloride 104 mmol/L (96-108); Cholesterol 157 mg/dL; Estimated Glomerular Filt Rate > 60; Glucose Fasting 96 mg/dL (60-99); HDL Cholesterol 47 mg/dL; LDL Cholesterol Calculated 95 mg/dl; Potassium 3.9 mmol/L (3.3-5.1); Sodium 140 mmol/L (135-145); Total Protein 6.5 g/dL (6.5-8.0); Triglycerides 77 mg/dL
[2022-10-15 11:47] LABS: TSH reflex Free T4 0.61 uIU/mL (0.32-4.0)
== END 2022-10-15 09:27 | disposition home or self-care (01) ==
LOC: HO.LAB 09:26
PROVIDERS: PCP Nurse Practitioner Family; Visit Provider Nurse Practitioner Family
DX: Z00.00 Encounter for general adult medical examination without abnormal findings (principal); I10 Essential (primary) hypertension; E78.5 Hyperlipidemia, unspecified; R73.01 Impaired fasting glucose
CPT/HCPCS: 36415; 80053; 80061; 83036; 84443; 85025

== ENCOUNTER 2023-01-01 11:07 | Outpatient (REF) | payer MEDICARE, SELFPAY ==
[2023-01-01 11:27] LABS: MANUAL DIFF FLAG NO
[2023-01-01 12:24] LABS: Basophils Percent Auto 0.5 % (0-2); Eosinophils Absolute Auto 0.1 X10*3/uL (0.0-0.4); Eosinophils Percent Auto 1.4 % (0-4); Hematocrit 44.6 % (42.0-52.0); Hemoglobin 15.1 g/dl (14.0-18.0); Imm Gran Abs Auto 0.01 X10*3/uL (0.00-0.03); Imm Gran Pct Auto 0.2 % (0.0-0.4); Lymphocytes Percent Auto 15.5 % (20-40); Mean Corpuscular HGB Conc 33.9 g/dl (31.0-36.0); Mean Corpuscular Hemoglobin 30.3 pg (27.0-33.0); Mean Corpuscular Volume 89.6 fL (80.0-98.0); Mean Platelet Volume 9.7 fL (9.4-12.4); Monocytes Absolute Auto 0.5 X10*3/uL (0.1-1.2); Monocytes Percent Auto 7.4 % (2-11); Neutrophils Absolute Auto 4.8 x10*3/uL (2.0-8.3); Platelet Count 190 X10*3/uL (160-400); Red Blood Count 4.98 X10*6/uL (4.60-5.80); Red Cell Distribution Width 12.8 % (11.0-16.0); White Blood Count 6.5 X10*3/uL (4.8-10.8)
[2023-01-01 12:59] LABS: Alanine Aminotransferase 26 U/L (0-40); Albumin Level 4.1 g/dL (3.5-5.0); Alkaline Phosphatase 60 U/L (39-117); Amylase 53 U/L (28-100); Aspartate Amino Transferase 23 U/L (5-37); Bilirubin Direct 0.3 mg/dL (0.0-0.5); Bilirubin Total 1.2 mg/dL (0.0-1.0); Blood Urea Nitrogen 11 mg/dL (9-16); C Reactive Protein < 0.10 mg/dL (< or = 0.50); Estimated Glomerular Filt Rate > 60; Lipase 29 U/L (8-78); Total Protein 6.5 g/dL (6.5-8.0)
[2023-01-01 13:24] LABS: Erythrocyte Sedimentation Rate 2 MM/HR (0-15)
== END 2023-01-01 11:08 | disposition home or self-care (01) ==
LOC: HO.LAB 11:07
PROVIDERS: PCP Nurse Practitioner Family; Visit Provider Internal Medicine
DX: R10.32 Left lower quadrant pain (principal); K57.90 Diverticulosis of intestine, part unspecified, without perforation or abscess without bleeding
CPT/HCPCS: 36415; 80076; 81003; 82150; 82565; 83690; 84520; 85025; 85652; 86140

== ENCOUNTER 2023-01-02 13:47 | Outpatient (REF) | payer MEDICARE, SELFPAY ==
--- NOTE | ~2023-01-02 | CT_ITS ---
EXAMINATION: CT ABDOMEN AND PELVIS WITH CONTRAST CLINICAL INFORMATION: 77-year-old male with left lower quadrant abdominal pain due to diverticulosis COMPARISON: 05/27/2020 TECHNIQUE: Multidetector volumetric images were obtained from the superior aspect of the liver through the pubic symphysis following administration 85 mL of Omnipaque 350 intravenous contrast. Sagittal and coronal reformatted images were obtained on the technologist's workstation. Oral contrast: Yes This CT examination was performed using dose optimization techniques as appropriate, variously including the following: *Automated exposure control *Adjustment of mA and/or kV according to patient size (this includes techniques or standardized protocols for targeted exams where dose is matched to indication/reason for exam; i.e. extremities or head) *Use of iterative reconstruction technique DLP: 422 mGy-cm FINDINGS: LUNG BASES: The visualized lung bases are unremarkable. LIVER, GALLBLADDER, AND BILIARY TREE: Liver is homogeneous with tiny low-attenuation lesion in the right lobe of the liver most likely cyst. The gallbladder is unremarkable with no evidence of radiopaque gallstones, gallbladder wall thickening, or obvious pericholecystic inflammatory changes. PANCREAS: Unremarkable. SPLEEN: Unremarkable. ADRENAL GLANDS: Unremarkable. KIDNEYS AND URETERS: There is stable since previous study exophytic simple 3.3 x 3.6 cm cyst in right kidney, parenchymal 1.4 cm cyst in the right kidney and no hydronephrosis or nephrolithiasis bilaterally. BLADDER: Unremarkable . GASTROINTESTINAL TRACT: There are changes of diverticulosis in the sigmoid colon not associated with diverticulitis or colitis. ABDOMINAL WALL: Patient is status post repair of anterior abdominal wall with mesh there are no evidence of hernias. There is balloon with pump in the left lower quadrant for penile prosthesis. LYMPH NODES: Normal. VASCULAR: Abdominal aorta atherosclerotic with calcified but not aneurysmally dilated. SMV is patent. PELVIC VISCERA: Unremarkable. OSSEOUS STRUCTURES: Unremarkable. CT/CT abdomen pelvis w IV con IMPRESSION: 1. Diverticulosis without diverticulitis or colitis. 2. Right renal cysts stable. 3. Status post repair of anterior abdominal wall with mesh. 4. Penile prosthesis. Fleischner guidelines were followed.
[2023-01-02 10:06] LABS: Appearance Urine Clear; Color Urine Yellow; Glucose Urine UA Negative (Negative); Leukocyte Esterase Urine Negative (Negative); Nitrite Urine Negative (Negative); PH 7.5 (5.0-9.0); Urine Blood Negative (Negative); Urine Ketones Negative (Negative); Urine Protein Negative (Neg-Trace)
[2023-01-02] MEDS: Barium Sulfate Oral (Berry) 450 ML ORAL.SUSP 900 ML PO (15:18)
[2023-01-02] MEDS: iohexoL 350 MG/ML 100 ML INFUS..BTL 85 ML IV (16:21)
== END 2023-01-02 13:48 | disposition home or self-care (01) ==
LOC: HO.CT 13:47
PROVIDERS: PCP Nurse Practitioner Family; Visit Provider Internal Medicine
DX: R10.32 Left lower quadrant pain (principal); K57.90 Diverticulosis of intestine, part unspecified, without perforation or abscess without bleeding
CPT/HCPCS: 74177; 81003; Q9967

== ENCOUNTER → 2023-01-20 12:42 | Outpatient (REF) | payer MEDICARE, SELFPAY ==
--- NOTE | 2023-01-20 12:44 | CA_ITS ---
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 The calculated ejection fraction is 67% by biplane method. - No obvious valvular pathology seen on this study. - There is mild dilatation of the ascending aorta measuring 4.00 cm. Findings Left Ventricle Normal left ventricular cavity size. There is moderately increased left ventricular wall thickness. The left ventricular systolic function is normal. The calculated ejection fraction is 67% by biplane method. There is no evidence of regional wall motion abnormalities. Diastolic function is normal for age. LV peak GLS -19.3%. Right Ventricle Normal right ventricular cavity size and systolic function. Atria Both atria are normal in size. Aortic Valve There is a normal trileaflet aortic valve. There is no aortic valve stenosis. There is no aortic valve regurgitation. Mitral Valve The mitral valve appears normal. There is no mitral valve regurgitation. There is no mitral valve stenosis. Pulmonic Valve There is trace pulmonic valve regurgitation. Tricuspid Valve Normal tricuspid valve structure. There is mild tricuspid valve regurgitation. There is no evidence of pulmonary hypertension. Great Vessels There is mild dilatation of the ascending aorta measuring 4.00 cm. Venous The inferior vena cava is normal in size and collapses greater than 50% with inspiration. Pericardium/Pleural There is no evidence of pericardial effusion. Prior Study Comparison No significant change compared to prior study dated: 01/24/2022. Recommendations, Care & Conclusions No obvious valvular pathology seen on this study. Measurements 2D Linear Measurements IVSd: 1.32 0.6-0.9/0.6-1.0 cm LVIDd: 4.79 3.9-5.3/4.2-5.9 cm LVIDd Index: 2.35 2.4-3.2/2.2-3.1 cm/m2 LVIDs: 3.18 2.0-3.6 cm LVPWd: 1.29 0.7-1.1 cm Ao Root: 3.90 2.1-3.5 cm LA Diam: 4.00 2.7-3.8/3.0-4.0 cm LAIDs Index: 1.96 1.5-2.3 cm/m2 LV Mass: 307.13 67-162/88-224 g LV Mass Index: 150.56 43-95/49-115 g/m2 LVOT Diam: 2.30 3.0+(-)1.3 cm 2D Systolic Function EF 4C: 59.60 >55% EF 2C: 71.10 >55% EF BiP: 66.80 >55% Mitral Valve MV Pk E: 0.54 MV PK A: 1.03 MV Decel Time: 210.00 E/A: 0.50 E'Lateral: 7.07 E'Medial: 4.13 E/E' Med: 13.00 E/E' Lat: 7.60 PHT: 61.00 MVA PHT: 3.61 Decel Bullitt: 2.56 Aortic Valve AoV Pk Td: 1.61 AoV Mn Td: 1.08 AoV VTI: 0.37 AoV Pk Grad: 10.00 Aov Mn Grad: 5.00 ORALIA Cont.VTI: 2.71 LVOT LVOT Pk Td: 1.09 LVOT Mn Td: 0.63 LVOT VTI: 0.24 LVOT Pk Grad: 5.00 LVOT Mn Grad: 2.00 LVOT Diam: 2.30 LVOT Area: 4.15 Diastolic Function MV Pk E: 0.54 MV Pk A: 1.03 E/A: 0.50 E'Medial: 4.13 E/E' Med: 13.00 E' Laterial: 7.07 E/E' Lat: 7.60 Right Ventricle TAPSE (mm): 30.00 TVS' Td: 19.00 Tricuspid Valve TR Pk Td: 2.32 TR Pk Grad: 22.00 RA Press: 3.00 RVSP: 25.00 Great Vessels Aorta Ao Root-2D: 3.90 2.0-3.7 cm Ao Asc: 4.00 2.1-3.4 cm Pulmonary Valve PV Pk Td: 0.92 Peak PV Grad: 3.00 Updated in Other Vendor System with Status of Final Giancarlo Leigh MD electronically signed on 01/21/2023 10:28:02 AM with status of Final
== END ==
LOC: HO.CARD 12:42
PROVIDERS: PCP Nurse Practitioner Family; Visit Provider Internal Medicine
DX: I71.20 Thoracic aortic aneurysm, without rupture, unspecified (principal)
CPT/HCPCS: 93306; 93356

== ENCOUNTER → 2023-02-09 14:20 | Outpatient (BNVA) | payer MEDICARE, SELFPAY | PROVIDERS: PCP Nurse Practitioner Family; Referring Provider Nurse Practitioner Family; Visit Provider Internal Medicine | DX: I71.20 Thoracic aortic aneurysm, without rupture, unspecified (principal); I10 Essential (primary) hypertension | CPT/HCPCS: 99212 ==

== ENCOUNTER 2023-03-06 11:08 | Outpatient (REF) | payer MEDICARE, SELFPAY ==
[2023-03-06 15:49] LABS: Prostate Specific Antigen < 0.10 ng/mL (<0.05-4.0)
[2023-03-06 15:56] LABS: Anion Gap 13 (12-20); Blood Urea Nitrogen 18 mg/dL (9-16); Calcium 9.4 mg/dL (8.4-10.2); Carbon Dioxide 24 mmol/L (22-29); Chloride 106 mmol/L (96-108); Estimated Glomerular Filt Rate > 60; Glucose Random 103 mg/dL (60-115); Potassium 5.8 mmol/L (3.3-5.1); Sodium 137 mmol/L (135-145)
== END 2023-03-06 11:09 | disposition home or self-care (01) ==
LOC: HO.LAB 11:08
PROVIDERS: Internal Medicine; PCP Nurse Practitioner Family; Visit Provider Urology
DX: Z12.5 Encounter for screening for malignant neoplasm of prostate (principal); I10 Essential (primary) hypertension; C61 Malignant neoplasm of prostate
CPT/HCPCS: 36415; 80048; 84153; 84403

== ENCOUNTER 2023-03-12 08:56 | Outpatient (REF) | payer MEDICARE, SELFPAY ==
[2023-03-12 10:08] LABS: Anion Gap 16 (12-20); Blood Urea Nitrogen 17 mg/dL (9-16); Calcium 9.4 mg/dL (8.4-10.2); Carbon Dioxide 19 mmol/L (22-29); Chloride 109 mmol/L (96-108); Estimated Glomerular Filt Rate > 60; Glucose Random 108 mg/dL (60-115); Potassium 4.3 mmol/L (3.3-5.1); Sodium 140 mmol/L (135-145)
[2023-03-17 10:58] LABS: Testosterone, Total 485 ng/dL (250-1100)
== END 2023-03-12 08:57 | disposition home or self-care (01) ==
LOC: HO.LAB 08:56
PROVIDERS: Internal Medicine; PCP Nurse Practitioner Family; Visit Provider Urology
DX: C61 Malignant neoplasm of prostate (principal); I10 Essential (primary) hypertension; E78.5 Hyperlipidemia, unspecified
CPT/HCPCS: 36415; 80048; 84403

== ENCOUNTER 2023-03-20 11:12 | Outpatient (AMB) | payer OTHER, SELFPAY ==
--- NOTE | 2023-03-20 11:20 | A.OFFVIS_ITS ---
Intake Intake Visit Reasons: 6M PSA/Testo(pending) Intake Note: Patient is present for Follow Up Urology Med: Tadalafil, Testosterone Antibiotic Allergy: Amoxicillin, Sulfa antibiotics Blood Thinner: None Pharmacy: wants medication sent to [facility] Allergies amoxicillin [From Augmentin] Adverse Reaction (Severe, Verified 04/13/23 11:19) SEVERE DIARRHEA clavulanic acid [From Augmentin] Adverse Reaction (Severe, Verified 04/13/23 11:19) SEVERE DIARRHEA Sulfa (Sulfonamide Antibiotics) Adverse Reaction (Intermediate, Verified 04/13/23 11:19) MOUTH SORES, RASH tamsulosin Allergy (Severe, Uncoded 04/13/23 11:19) mouth sores HPI HPI Comments History of Present Illness Details Ermias is a pleasant male. He is a patient of Dr. Navarro. He is seen for the following urologic conditions - prostate cancer - erectile dysfunction - hypogonadism - nephrolithiasis Lab work looks to be appropriate - penile prosthetic functional however b uckling occurring with female on top position. - may consider revision for Coloplast Ti renee Hypogonadism with daily testosterone patches Erectile dysfunction with penile prosthetic Nephrolithiasis minimal on left side Does have persistent back pain Has been on Fosamax previously for osteoporosis with vitamin-D 6 month follow-up PSA Prostate cancer - agent orange exposure external beam radiation 2014 Initial diagnosis 2014 Initial therapy radiation with hormones Previous mild hematuria responded to Proscar PSA - 09/06 0.14, 05/07 0.09, 03/07 0.1, 07/08 0.1, 03/08 485 <0.1 44 Nocturia 2-3 times, daytime 3 hours - is slowly improving Hypogonadism Takes testosterone patches On Fosamax for osteoporosis with vitamin-D Laboratories - 11/04 testosterone 550, hematocrit 46.3, 05/07 T 357, 03/07 479 Erectile dysfunction Persistent since radiation for prostate cancer Prior trial of oral tablets and vacuum pumps Failed maximum combination therapy with daily tadalafil and top up Was able to used corporal injections however did not reliably produce desired effect Penile prosthetic placed 08/07 Nephrolithiasis Imaging - 09/08 renal ultrasound bilateral cysts up to 3 cm, small stones left multiple 3 mm PFSH Medical History Allergic rhinitis Annual physical exam Ascending aortic aneurysm BPH (benign prostatic hyperplasia) Encounter to establish care Erectile dysfunction due to arterial insufficiency Essential hypertension Fracture, thoracic vertebra, compression Hearing problem HTN (hypertension) Hyperlipidemia Hypogonadism male Insomnia Lumbar degenerative disc disease Normal colonoscopy Osteoporosis Polycythemia Prostate CA Surgical History History of colon resection History of esophagogastroduodenoscopy (EGD) History of repair of hiatal hernia Hx of appendectomy Hx of colonoscopy Hx of cystoscopy Hx of hernia repair Hx of nasal septoplasty Hx of transurethral resection of prostate Family History Father Alzheimer disease Colon cancer Colon polyps Mother No problems noted. Other Mental health disorder Social History Housing: House Alcohol intake: current Alcohol intake frequency: holidays/special occasions only Patient Tobacco Use Status: Former Tobacco user Quit Date: 30 yrs ago e-Cigarette/Vaping Use: Never Used Second Hand Smoke Exposure: No service: Yes Current occupational status: employed and retired Cognitive needs: No Hearing needs: Yes Vision needs: No Review of Systems Const Denies chills and Denies fever(s) Card Reports no additional complaints and Denies syncope Resp Denies cough GI Denies abdominal pain and Denies heartburn Reports as per HPI and Denies change in libido Neuro Denies syncope Psych Denies change in libido Endo Denies change in libido Physical Exam Const General: cooperative, healthy appearing, comfortable and no acute distress Orientation/consciousness: patient oriented x3 HEENT Face and sinus: Yes normal facial exam Mouth: moist mucous membranes Neck Neck: Yes normal visual inspection, Yes full ROM and Yes trachea midline Chest Chest palpation & inspection: normal inspection of the chest Resp Effort & Inspection: normal respiratory effort, able to speak in complete sentences and no respiratory distress GI Inspection: Yes normal to inspection Back/Spine/Pelvis Cervical Spine: normal cervical lordosis Thoracic/Lumbar Spine: thoracic and lumbar spine normal to inspection Skin General skin exam: no rashes or lesions noted Neuro General: patient oriented x3, gait normal, tone normal and moves all extremities Extrem General: Yes normal to inspection and Yes capillary refill normal Assessment & Plan Assessment & Plan (1) Nephrolithiasis: Code(s): N20.0 - Calculus of kidney (2) Urinary urgency: Code(s): R39.15 - Urgency of urination (3) Erectile dysfunction due to and not concurrent with radiation therapy: Code(s): N52.35 - Erectile dysfunction following radiation therapy (4) Prostate CA: Comment: 2015 s/p RTX, hormonal tx, f/u urology Dr. Ayers Code(s): C61 - Malignant neoplasm of prostate Plan Six month follow-up PSA Orders: Orders Testosterone, Total 6 Months E29.1 - Testicular hypofunction Prostate Specific Antigen 6 Months E29.1 - Testicular hypofunction Complete Blood Count no Diff 6 Months E29.1 - Testicular hypofunction Patient Instructions: Imaging studies, laboratory and physical exam results were discussed and reviewed in detail. No major barriers to patient understanding were identified. An opportunity to ask questions regarding the treatment plan was provided. All questions were answered. The patient expressed understanding and agreement with the above treatment plan. The patient is aware they should contact our office by phone for worsening of their current condition or the appearance of new urologic symptoms. Compliance is encouraged with any medications and followup testing that is ordered. It is a privilege to participate in the urologic care of your patient. If you have any questions or concerns regarding treatment for the above conditions, or other urologic issues, please do not hesitate to contact me. The office telephone contact is [phone]. This note is constructed using voice recognition software. While every effort has been made to ensure accuracy steam turbine assembler errors may have been included. Yours sincerely, Dr Jd Ayers MD, [facility] - Urology Providers of Expert, Compassionate Care for the Genitourinary System Coding Level of Care Code Est Pt Level 3 (48456) Diagnoses Nephrolithiasis N20.0 Urinary urgency R39.15 Erectile dysfunction due to and not concurrent with radiation therapy N52.35 Prostate CA C61
== END 2023-03-20 11:52 | disposition home or self-care (01) ==
PROVIDERS: Visit Provider Urology
DX: N20.0 Calculus of kidney (principal); R39.15 Urgency of urination; N52.35 Erectile dysfunction following radiation therapy; C61 Malignant neoplasm of prostate
CPT/HCPCS: 99213

== ENCOUNTER → 2023-03-20 11:12 | Outpatient (BNVA) | payer OTHER, SELFPAY | PROVIDERS: Visit Provider Urology | DX: C61 Malignant neoplasm of prostate (principal); N52.35 Erectile dysfunction following radiation therapy; E29.1 Testicular hypofunction; N20.0 Calculus of kidney; R39.15 Urgency of urination; M54.6 Pain in thoracic spine; Z79.899 Other long term (current) drug therapy | CPT/HCPCS: 99212 ==

== ENCOUNTER 2023-04-13 11:14 | Outpatient (AMB) | payer MEDICARE, SELFPAY ==
[2023-04-13 11:18] VITALS: BP 146/82; PULSE 70; RESP 14; O2SAT 97; BMI 29.2
--- NOTE | 2023-04-13 11:18 | A.OFFVIS_ITS ---
Intake Vital Signs 04/13/23 11:18 Height 5 ft 9 in Weight 198 lb BMI 29.2 BP 146/82 H Blood Pressure Location Rt brachial Position Sitting Respiration 14 Pulse 70 Pulse Source Pulse Oximeter Pulse Oximetry (%) 97 Oxygen Delivery Method Room Air Intake Visit Reasons: Pain in Thoracic Spine Allergies amoxicillin [From Augmentin] Adverse Reaction (Severe, Verified 04/13/23 11:19) SEVERE DIARRHEA clavulanic acid [From Augmentin] Adverse Reaction (Severe, Verified 04/13/23 11:19) SEVERE DIARRHEA Sulfa (Sulfonamide Antibiotics) Adverse Reaction (Intermediate, Verified 04/13/23 11:19) MOUTH SORES, RASH tamsulosin Allergy (Severe, Uncoded 04/13/23 11:19) mouth sores Medication List - Last Reconciled 04/13/23 by Aurelia Wu LPN cholecalciferol (vitamin D3) 2,000 units PO DAILY 30 days docusate sodium (Colace) 100 mg PO BID 14 days labetalol 300 mg PO BID 90 days multivitamin 1 tab PO DAILY naproxen 500 mg PO BID PRN 7 days tadalafil 10 mg PO DAILY 90 days testosterone 1 packet transdermal DAILY 30 days zolpidem (Ambien) 10 mg PO BEDTIME PRN HPI Pain in Thoracic Spine HPI Details 77-year-old male presenting today for a new patient evaluation of mid back pain. The patient has a past medical history significant for elevated fasting glucose, fatty liver, low back pain with right-sided sciatica, hyperlipidemia, hypertension, AAA (followed by [facility]), history of prostate cancer (followed by Urology Dr. Ayers), thoracic back pain, and osteopenia, among others. The patient has a longstanding history of mid back pain that radiates towards the left chest abdomen as well as a history of right-sided sciatica that has been treated with physical therapy and injections off and on in the past. His most bothersome issue right now is the midback pain that travels towards the left side. He has undergone extensive renal workup for the source of this pain with no apparent causes identified to date. He has been followed by Dr. Devon Lao and had an SIJ injection on 12/2022. He states that the SIJ injection and brace did not provide significant relief. His pain is worse when he sits for prolonged periods or lies down. [facility] Medical History Allergic rhinitis Annual physical exam Ascending aortic aneurysm BPH (benign prostatic hyperplasia) Encounter to establish care Erectile dysfunction due to arterial insufficiency Essential hypertension Fracture, thoracic vertebra, compression Hearing problem HTN (hypertension) Hyperlipidemia Hypogonadism male Insomnia Lumbar degenerative disc disease Normal colonoscopy Osteoporosis Polycythemia Prostate CA Surgical History History of colon resection History of esophagogastroduodenoscopy (EGD) History of repair of hiatal hernia Hx of appendectomy Hx of colonoscopy Hx of cystoscopy Hx of hernia repair Hx of nasal septoplasty Hx of transurethral resection of prostate Family History Father Alzheimer disease Colon cancer Colon polyps Mother No problems noted. Other Mental health disorder Social History Housing: House Alcohol intake: current Alcohol intake frequency: holidays/special occasions only Patient Tobacco Use Status: Former Tobacco user Quit Date: 30 yrs ago e-Cigarette/Vaping Use: Never Used Second Hand Smoke Exposure: No service: Yes Current occupational status: employed and retired Cognitive needs: No Hearing needs: Yes Vision needs: No Review of Systems Const All systems reviewed & are unremarkable except as noted in HPI and below Physical Exam Vital Signs: Last Vital Signs Pulse 70 04/13/23 11:18 Resp 14 04/13/23 11:18 BP 146/82 H 04/13/23 11:18 Pulse Ox 97 04/13/23 11:18 Oxygen Delivery Method Room Air 04/13/23 11:18 BMI result Body Mass Index 29.2 General: Appears afebrile. Alert and oriented. Mood and affect appropriate. Follows and participates in conversation appropriately. Respiratory effort is unlabored. Able to transition from sit to stand unassisted. Ambulates with bilaterally normal heel strike and toe off. No midline tenderness to palpation in the lumbar spine. No paraspinal tenderness to palpation in the lumbar spine. Lumbar extension does not reproduce symptoms. Lumbar flexion reproduces pain in the lower back as well as radiating pain down the leg. Results Reviewed Results Reviewed: 05/27/22: CT THORACIC SPINE WITHOUT CONTRAST FINDINGS: There is generalized osteopenia. There is normal thoracic kyphosis and spinal alignment. Mild to moderate multilevel degenerative disc disease is seen most pronounced from T10-T11 to T12-L1. Mild compression deformity of the anterior aspect of the superior plate of T9 without acute features. The vertebral bodies are intact. The neural foramina are patent. The facet joints are unremarkable. The spinous processes are intact. The soft tissues are unremarkable. The thyroid gland is unremarkable. The thoracic aorta shows mild atherosclerosis. The visualized lungs are clear. The visualized upper abdomen is unremarkable. IMPRESSION: 1. Generalized osteopenia and mild to moderate multilevel degenerative changes. Mild anterior superior plate compression deformity of T9 does not demonstrate acute features. No significant abnormality at T6. If pain persists or worsens, further evaluation with MRI is recommended. For review of the CT of the abdomen and pelvis shows endplate degeneration at the superior endplate of T12 and inferior endplate of L1. 01/10/22: BONE DENSITOMETRY FINDINGS: AP SPINE L1-L4: Current: BMD 1.209 g/cm2, Z-score 0.1, T-score -0.1, normal, 8.0% increase from previous, 12.6% decrease from baseline (<5% change is not significant). Prior: BMD 1.119 g/cm2. Baseline: BMD 1.074 g/cm2. LEFT FEMUR, NECK: Current: BMD 0.820 g/cm2, Z-score -0.8, T-score -1.9, osteopenia. Prior: BMD 0.737 g/cm2. Baseline: BMD 0.706 g/cm2. LEFT FEMUR, TOTAL: Current: BMD 0.913 g/cm2, Z-score -0.7, T-score -1.3, osteopenia, 0.1% decrease from previous, 4.5% increase from baseline (<5% change is not significant). Prior: BMD 0.914 g/cm2. Baseline: BMD 0.874 g/cm2. IDENTIFIED RISK FACTORS: Osteoporosis, family history (parental hip fracture), secondary osteoporosis, thiazide. HISTORY OF FRACTURE: None listed. MEDICATIONS: Calcium supplements or multivitamin, vitamin D, ERT/SERMS, bisphosphonates. IMPRESSION: 1. DIAGNOSIS: Osteopenia based on the lowest T-score value of -1.9 in the femoral neck applying World Health Organization criteria. 2. 10-YEAR FRACTURE RISK PREDICTION, FRAX: Major osteoporotic fracture (clinical spine, forearm, hip or shoulder) 14.7%. Hip fracture 8.9%. 3. Treatment Recommendations: NOF guidelines recommend consideration for treatment in postmenopausal women and men age 50 and older presenting with the following: -A hip or vertebral (clinical or morphometric) fracture. -T-score less than or equal to -2.5 at the femoral neck or spine after appropriate evaluation to exclude secondary causes. -Low bone mass at the hip or spine and a 10-year fracture probability by FRAX of greater than or equal to 3% for hip fracture or greater than or equal to 20% for major osteoporotic fracture based on the [place] adapted WHO algorithm. 09/16/21: XR CHEST. XR THORACIC SPINE FINDINGS: Thoracic spine: There are 12 rib-bearing thoracic vertebrae of normal attenuation. There is no bony destructive process, spondylolisthesis, or paraspinal soft tissue swelling. Some mild degenerative changes are again present mid thoracic spine. No erosive change. There is mild loss of height T8 slightly borderline increased since CT scan chest 09/08/2017. Chest: The lungs are clear. There is no pneumothorax, pleural reaction, infiltrate, or groundglass opacity. The costophrenic sulci are clear. The heart is normal in size. The hilar and mediastinal contours are stable. There is tortuous descending thoracic aorta are again seen. Remainder of the bony structures are unremarkable. IMPRESSION: Thoracic spine: -Loss of height vertebral body T8 borderline increased since CT chest 09/08/2017. -No destructive process or paraspinal soft tissue swelling. Chest: -No acute intrathoracic disease. Assessment & Plan Assessment & Plan (1) Vertebrogenic low back pain: Code(s): M54.51 - Vertebrogenic low back pain Plan Ordered an MRI scan of the lumbar spine to further evaluate vertebrogenic low back pain. The patient will follow up as scheduled for review of results. He has previously exhausted extensive conservative management including oral medications, physical therapy and investigations for abdominal source of his pain that have been negative. He continues to be engaged in a home exercise program. Findings on CT of the thoracic spine and abdomen pelvis suggest a vertebrogenic source of his pain with significant endplate changes on multiple levels and evidence of Modic changes along the endplates of the lumbar spine that are unlikely to respond to conservative management and physical therapy. He also has a history of longstanding sciatica with radicular symptoms down his right lower extremity. He would benefit from an MRI examination of his lumbar spine for further treatment planning. Scribed for Dr. Guerrero by Zack Peter, pediatric medical assistant, on 04/13/2023. I, Dr. Guerrero, have personally reviewed and agree with the information entered by the scribe. Orders: Orders MR lumbar spine wo con Today M54.51 - Vertebrogenic low back pain Coding Level of Care Code New Pt Level 4 (00086) Diagnoses Vertebrogenic low back pain M54.51
== END 2023-04-13 11:44 | disposition home or self-care (01) ==
PROVIDERS: PCP Nurse Practitioner Family; Visit Provider Internal Medicine
DX: M54.51 Vertebrogenic low back pain (principal)
CPT/HCPCS: 99204

== ENCOUNTER → 2023-04-13 11:14 | Outpatient (BNVA) | payer MEDICARE, OTHER, SELFPAY | PROVIDERS: PCP Nurse Practitioner Family; Visit Provider Internal Medicine | DX: M54.51 Vertebrogenic low back pain (principal) | CPT/HCPCS: 99202 ==

== ENCOUNTER 2023-04-18 11:03 | Outpatient (REF) | payer MEDICARE, SELFPAY ==
--- NOTE | ~2023-04-18 | MR_ITS ---
EXAMINATION: MR LUMBAR SPINE WITHOUT CONTRAST CLINICAL INFORMATION: Left lower back pain, right leg pain COMPARISON: MRI lumbar spine 04/05/2014 TECHNIQUE: MRI of the lumbar spine was obtained using routine sequences without contrast. FINDINGS: Normal anatomic alignment. No suspicious marrow signal or focal osseous lesion. No significant marrow edema. T12 superior endplate Schmorl's node with associated fatty endplate marrow signal changes at T11-T12. Small L1-L2 endplate Schmorl's nodes. L2 vertebral body hemangioma. The vertebral body heights are maintained. Mild multilevel disc desiccation and height loss. The conus medullaris terminates at the level of L1. The distal spinal cord is normal in appearance. The cauda equina nerve roots appear normal. No significant abnormalities of the paraspinal musculature. Limited evaluation of the intra-abdominal structures without significant abnormalities. Right renal cyst. Partially visualized reservoir along the anterior pelvis related to penile prosthesis. The abdominal aorta is of normal contour and caliber. SPINAL LEVELS: T12-L1: No significant spinal canal or neural foraminal narrowing L1-L2: No significant spinal canal or neuroforaminal narrowing. L2-L3: No significant spinal canal or neuroforaminal narrowing. Broad-based disc bulge and mild facet arthropathy. L3-L4: No significant spinal canal or neuroforaminal narrowing. Broad-based disc bulge and mild facet arthropathy L4-L5: No significant spinal canal or neuroforaminal narrowing. Broad-based disc bulge with posterior annular fissure and mild facet arthropathy. L5-S1: Moderate facet arthropathy with small bilateral joint effusions. There is a new synovial cyst projecting anteriorly from the right facet joint measuring up to 8 mm which indents right dorsolateral thecal sac contributes to right subarticular zone narrowing. Shallow disc bulge. No significant central spinal canal stenosis. Progressive moderate bilateral neural foraminal narrowing. MR/MR lumbar spine wo con IMPRESSION: 1. At L5-S1, there is moderate facet arthropathy and a new right-sided synovial cyst which contributes to right subarticular zone narrowing. There is also progressive moderate bilateral neural foraminal narrowing at this level. 2. Otherwise mild multilevel degenerative changes of the lumbar spine as described above without significant central spinal canal stenosis or high-grade neural foraminal narrowing.
== END 2023-04-18 11:04 | disposition home or self-care (01) ==
LOC: HO.MRI 11:03
PROVIDERS: PCP Nurse Practitioner Family; Visit Provider Internal Medicine
DX: M54.51 Vertebrogenic low back pain (principal); M54.50 Low back pain, unspecified; M79.661 Pain in right lower leg
CPT/HCPCS: 72148

== ENCOUNTER 2023-05-02 11:12 | Outpatient (REF) | payer MEDICARE, SELFPAY ==
[2023-05-02 12:51] LABS: CDiff Gene PCR NEGATIVE (Negative)
[2023-05-02 12:55] LABS: Leukocytes Stool Qualitative NEGATIVE (NEGATIVE)
[2023-05-03 10:02] LABS: Adenovirus F 40/41 Not Detected (Not Detect.); Astrovirus Not Detected (Not Detect.); Campylobacter Not Detected (Not Detect.); Cryptosporidium Not Detected (Not Detect.); Cyclospora cayetanensis Not Detected (Not Detect.); E. coli EAEC Not Detected (Not Detect.); E. coli EPEC Not Detected (Not Detect.); E. coli ETEC Not Detected (Not Detect.); E. coli STEC Not Detected (Not Detect.); Entamoeba histolytica Not Detected (Not Detect.); Giardia lamblia Not Detected (Not Detect.); Norovirus GI/GII Not Detected (Not Detect.); Plesiomonas shigelloides Not Detected (Not Detect.); Rotavirus A Not Detected (Not Detect.); Salmonella Not Detected (Not Detect.); Sapovirus Not Detected (Not Detect.); Shigella sp./EIEC Not Detected (Not Detect.); Vibrio Not Detected (Not Detect.); Vibrio Cholerae Not Detected (Not Detect.); Yersinia enterocolitica Not Detected (Not Detect.)
== END 2023-05-02 11:13 | disposition home or self-care (01) ==
LOC: HO.LNP 11:12
PROVIDERS: Visit Provider Internal Medicine
DX: R19.7 Diarrhea, unspecified (principal)
CPT/HCPCS: 87493; 87507; 89055

== ENCOUNTER 2023-05-08 10:15 | Outpatient (AMB) | payer MEDICARE, SELFPAY ==
[2023-05-08 10:31] VITALS: BP 106/62; PULSE 69; RESP 14; O2SAT 97; BMI 28.8
--- NOTE | 2023-05-08 10:31 | A.OFFVIS_ITS ---
Intake Vital Signs 05/08/23 10:31 Height 5 ft 9 in Weight 195 lb BMI 28.8 BP 106/62 Blood Pressure Location Lt brachial Position Sitting Respiration 14 Pulse 69 Pulse Source Pulse Oximeter Pulse Oximetry (%) 97 Oxygen Delivery Method Room Air Intake Visit Reasons: Follow Up/MRI Results Allergies amoxicillin [From Augmentin] Adverse Reaction (Severe, Verified 05/08/23 10:34) SEVERE DIARRHEA clavulanic acid [From Augmentin] Adverse Reaction (Severe, Verified 05/08/23 10:34) SEVERE DIARRHEA Sulfa (Sulfonamide Antibiotics) Adverse Reaction (Intermediate, Verified 05/08/23 10:34) MOUTH SORES, RASH tamsulosin Allergy (Severe, Uncoded 05/08/23 10:34) mouth sores Medication List - Last Reconciled 05/08/23 by Aurelia Wu LPN cholecalciferol (vitamin D3) 2,000 units PO DAILY 30 days docusate sodium (Colace) 100 mg PO BID 14 days labetalol 300 mg PO BID 90 days multivitamin 1 tab PO DAILY naproxen 500 mg PO BID PRN 7 days testosterone 1 packet transdermal DAILY 30 days zolpidem (Ambien) 10 mg PO BEDTIME PRN HPI Follow Up/MRI Results HPI Details 77-year-old male who presents today to t he office for a follow-up review of MRI report. The patient has a longstanding history of mid back pain that radiates towards the left chest abdomen as well as a history of right-sided sciatica that has been treated with physical therapy and injections off and on in the past. He has been followed by Dr. Devon Lao and had an SIJ injection on 12/2022. He states that the SIJ injection and brace did not provide significant relief. More recently has been having exacerbation of his longstanding right lower extremity radicular symptoms. He endorses pain in his right lower back that extends into his calf and thigh. [facility] Medical History Allergic rhinitis Annual physical exam Ascending aortic aneurysm BPH (benign prostatic hyperplasia) Encounter to establish care Erectile dysfunction due to arterial insufficiency Essential hypertension Fracture, thoracic vertebra, compression Hearing problem HTN (hypertension) Hyperlipidemia Hypogonadism male Insomnia Lumbar degenerative disc disease Normal colonoscopy Osteoporosis Polycythemia Prostate CA Surgical History History of colon resection History of esophagogastroduodenoscopy (EGD) History of repair of hiatal hernia Hx of appendectomy Hx of colonoscopy Hx of cystoscopy Hx of hernia repair Hx of nasal septoplasty Hx of transurethral resection of prostate Family History Father Alzheimer disease Colon cancer Colon polyps Mother No problems noted. Other Mental health disorder Social History Housing: House Alcohol intake: current Alcohol intake frequency: holidays/special occasions only Patient Tobacco Use Status: Former Tobacco user Quit Date: 30 yrs ago e-Cigarette/Vaping Use: Never Used Second Hand Smoke Exposure: No service: Yes Current occupational status: employed and retired Cognitive needs: No Hearing needs: Yes Vision needs: No Review of Systems Const All systems reviewed & are unremarkable except as noted in HPI and below Physical Exam Vital Signs: Last Vital Signs Pulse 69 05/08/23 10:31 Resp 14 05/08/23 10:31 BP 106/62 05/08/23 10:31 Pulse Ox 97 05/08/23 10:31 Oxygen Delivery Method Room Air 05/08/23 10:31 BMI result Body Mass Index 28.8 General: Appears afebrile. Alert and oriented. Mood and affect appropriate. Follows and participates in conversation appropriately. Respiratory effort is unlabored. Able to transition from sit to stand unassisted. Ambulates with bilaterally normal heel strike and toe off. Results Reviewed Results Reviewed: 04/18/23: MR LUMBAR SPINE WITHOUT CONTRAST FINDINGS: Normal anatomic alignment. No suspicious marrow signal or focal osseous lesion. No significant marrow edema. T12 superior endplate Schmorl's node with associated fatty endplate marrow signal changes at T11-T12. Small L1-L2 endplate Schmorl's nodes. L2 vertebral body hemangioma. The vertebral body heights are maintained. Mild multilevel disc desiccation and height loss. The conus medullaris terminates at the level of L1. The distal spinal cord is normal in appearance. The cauda equina nerve roots appear normal. No significant abnormalities of the paraspinal musculature. Limited evaluation of the intra-abdominal structures without significant abnormalities. Right renal cyst. Partially visualized reservoir along the anterior pelvis related to penile prosthesis. The abdominal aorta is of normal contour and caliber. SPINAL LEVELS: T12-L1: No significant spinal canal or neural foraminal narrowing L1-L2: No significant spinal canal or neuroforaminal narrowing. L2-L3: No significant spinal canal or neuroforaminal narrowing. Broad-based disc bulge and mild facet arthropathy. L3-L4: No significant spinal canal or neuroforaminal narrowing. Broad-based disc bulge and mild facet arthropathy L4-L5: No significant spinal canal or neuroforaminal narrowing. Broad-based disc bulge with posterior annular fissure and mild facet arthropathy. L5-S1: Moderate facet arthropathy with small bilateral joint effusions. There is a new synovial cyst projecting anteriorly from the right facet joint measuring up to 8 mm which indents right dorsolateral thecal sac contributes to right subarticular zone narrowing. Shallow disc bulge. No significant central spinal canal stenosis. Progressive moderate bilateral neural foraminal narrowing. IMPRESSION: 1. At L5-S1, there is moderate facet arthropathy and a new right-sided synovial cyst which contributes to right subarticular zone narrowing. There is also progressive moderate bilateral neural foraminal narrowing at this level. 2. Otherwise mild multilevel degenerative changes of the lumbar spine as described above without significant central spinal canal stenosis or high-grade neural foraminal narrowing. Assessment & Plan Assessment & Plan (1) Vertebrogenic low back pain: Code(s): M54.51 - Vertebrogenic low back pain (2) Synovial cyst of lumbar facet joint: Code(s): M71.38 - Other bursal cyst, other site Plan 77-year-old male with a history of chronic mid back left-sided pain with positive findings of endplate Modic changes at T12, L1 and L2 levels. Unfortunately the BV and ablation procedure is not approved for these levels. He requested that we [facility] and see if they would cover the procedure at those levels off-label. He does not have Modic changes at any of the lower lumbar levels. He does have a synovial cyst at the right L5-S1 articulating joint. this is likely causing his right lower extremity radicular symptoms. Will schedule him for Right L5-S1 intraarticular facet aspiration/injection. Discussed the risks and benefits of the procedure with the patient in detail. All questions were answered. The patient is on board with the plan. Justification for interventional therapy: ? Patient with average pain > 6/10 ? Patient has exhausted conservative therapy including physical therapy Scribed for Dr. Guerrero by Zack Peter, medical illustrator, on 05/08/2023. I, Dr. Guerrero, have personally reviewed and agree with the information entered by the scribe. Coding Level of Care Code Est Pt Level 4 (62944) Diagnoses Vertebrogenic low back pain M54.51 Synovial cyst of lumbar facet joint M71.38
== END 2023-05-08 11:01 | disposition home or self-care (01) ==
PROVIDERS: PCP Nurse Practitioner Family; Visit Provider Internal Medicine
DX: M54.51 Vertebrogenic low back pain (principal); M71.38 Other bursal cyst, other site
CPT/HCPCS: 99214

== ENCOUNTER → 2023-05-08 10:15 | Outpatient (BNVA) | payer MEDICARE, OTHER, SELFPAY | PROVIDERS: PCP Nurse Practitioner Family; Visit Provider Internal Medicine | DX: M54.51 Vertebrogenic low back pain (principal); M71.38 Other bursal cyst, other site | CPT/HCPCS: 99212 ==

== ENCOUNTER 2023-06-10 06:06 | Outpatient (REF) | payer MEDICARE, SELFPAY ==
--- NOTE | ~2023-06-10 | FL_ITS ---
EXAMINATION: XR FLUOROSCOPY WITH IMAGES CLINICAL INFORMATION: Other bursal cyst, other site. COMPARISON: None available. TECHNIQUE: Fluoroscopy Supervised By: Dr. Luis Guerrero. Fluoroscopy Time: 16.6 seconds. Cumulative Dose: 3.7153 mGy. DAP: 0.3919 Gycm2. Images: 4. FINDINGS: Images demonstrate needle placement adjacent to the right posterior lateral L4-L5 vertebrae FL/FL guidance in treatment room IMPRESSION: Fluoroscopic guidance for pain management procedure
== END 2023-06-10 06:07 | disposition home or self-care (01) ==
LOC: CF 06:06
PROVIDERS: Visit Provider Internal Medicine
DX: M71.38 Other bursal cyst, other site (principal); M54.51 Vertebrogenic low back pain
CPT/HCPCS: 64493; J1040; Q9967

== ENCOUNTER 2023-06-10 09:00 | Outpatient (AMB) | payer MEDICARE, SELFPAY ==
--- NOTE | 2023-06-10 09:04 | A.OFFVIS_ITS ---
Intake Vital Signs 06/10/23 09:05 06/10/23 10:03 BP 110/64 130/66 Blood Pressure Location Rt brachial Rt brachial Position Sitting Sitting Respiration 14 12 Pulse 75 75 Pulse Source Pulse Oximeter Pulse Oximeter Pulse Oximetry (%) 97 97 Oxygen Delivery Method Room Air Room Air Intake Visit Reasons: Right L5-S1 facet aspiration/injection Allergies amoxicillin [From Augmentin] Adverse Reaction (Severe, Verified 06/10/23 09:05) SEVERE DIARRHEA clavulanic acid [From Augmentin] Adverse Reaction (Severe, Verified 06/10/23 09:05) SEVERE DIARRHEA Sulfa (Sulfonamide Antibiotics) Adverse Reaction (Intermediate, Verified 06/10/23 09:05) MOUTH SORES, RASH tamsulosin Allergy (Severe, Uncoded 06/10/23 09:05) mouth sores HPI Right L5-S1 facet aspiration/injection HPI Details Patient presents for scheduled procedure. Denies any recent cough, cold, infection, fever or other significant changes in medical history since last office visit. [facility] Medical History Allergic rhinitis Annual physical exam Ascending aortic aneurysm BPH (benign prostatic hyperplasia) Encounter to establish care Erectile dysfunction due to arterial insufficiency Essential hypertension Fracture, thoracic vertebra, compression Hearing problem HTN (hypertension) Hyperlipidemia Hypogonadism male Insomnia Lumbar degenerative disc disease Normal colonoscopy Osteoporosis Polycythemia Prostate CA Surgical History History of colon resection History of esophagogastroduodenoscopy (EGD) History of repair of hiatal hernia Hx of appendectomy Hx of colonoscopy Hx of cystoscopy Hx of hernia repair Hx of nasal septoplasty Hx of transurethral resection of prostate Family History Father Alzheimer disease Colon cancer Colon polyps Mother No problems noted. Other Mental health disorder Social History Housing: House Alcohol intake: current Alcohol intake frequency: holidays/special occasions only Patient Tobacco Use Status: Former Tobacco user Quit Date: 30 yrs ago e-Cigarette/Vaping Use: Never Used Second Hand Smoke Exposure: No service: Yes Current occupational status: employed and retired Cognitive needs: No Hearing needs: Yes Vision needs: No Physical Exam Vital Signs: Last Vital Signs Pulse 75 06/10/23 09:05 Resp 14 06/10/23 09:05 BP 110/64 06/10/23 09:05 Pulse Ox 97 06/10/23 09:05 Oxygen Delivery Method Room Air 06/10/23 09:05 Office Procedures Cervical/Thoracic Facet Inj Procedure code (CPT) selection complete Lumbar/Sacral Facet Inj Details: Lumbar Intra-articular Facet Injections, Right L5/S1 After obtaining written consent, pre-procedure blood pressure and pulse were recorded and are in the nursing record for review. The patient was placed in a prone position. The respective lumbosacral area was prepped with chloraprep and draped in sterile fashion. The target facet joint was visualized using ipsilateral oblique fluoroscopy to reveal the joint line. The skin over the target facet joint was anesthetized with 0.5% lidocaine. A 22 gauge 3.5 inch needle with a small bend on the tip was advanced towards the target facet joint under fluoroscopic guidance until bony contact. The needle was then maneuvered and rotated until it slid into the joint slightly. No paresthesias were elicited with needle placement and aspiration was negative for blood and CSF. The joint was aspirated revealing bloody synovial fluid. Next 20 mg of methylprednisone was injected. The skin was cleansed and a sterile bandage was applied. Following the procedure the patient's vital signs were stable. The patient tolerated the procedure well and no complications were encountered. Following the procedure the patient's vital signs were stable. The patient was discharged home in good condition with post-procedural instructions. Time Out: Immediately prior to the procedure, the following was verbally confirmed that there is a signed consent form and that the correct patient, planned procedure, site and side are consistent with documentation and that necessary equipment and/or blood products are available prior to the start of the case. Complications: none EBL: <5 cc [id number] - with Fluoroscopy Procedure code (CPT) selection complete Assessment & Plan Assessment & Plan (1) Synovial cyst of lumbar facet joint: Code(s): M71.38 - Other bursal cyst, other site Plan Patient is status post right L5/S1 facet aspiration and injection. Patient tolerated procedure well and was discharged home in stable condition with discharge instructions. All questions were answered. We will follow-up via telephone or in clinic to assess response to therapy. A follow-up appointment was made during today's visit. Orders: Orders FL guidance in treatment room Today M54.51 - Vertebrogenic low back pain, M71.38 - Other bursal cyst, other site Coding Level of Care Code Procedure Only Diagnoses Synovial cyst of lumbar facet joint M71.38 CPT Codes Facet Injection-Lumbar/Sacral - CPT: 70927 - with Fluoroscopy ([id number])
[2023-06-10 09:05] VITALS: BP 110/64; PULSE 75; RESP 14; O2SAT 97
[2023-06-10 10:03] VITALS: BP 130/66; PULSE 75; RESP 12; O2SAT 97
== END 2023-06-10 09:57 | disposition home or self-care (01) ==
LOC: HO.PMCPRC 09:00
PROVIDERS: PCP Nurse Practitioner Family; Visit Provider Internal Medicine
DX: M71.38 Other bursal cyst, other site (principal)
CPT/HCPCS: 64493

== ENCOUNTER 2023-06-19 08:30 | Outpatient (AMB) | payer MEDICARE, SELFPAY ==
--- NOTE | 2023-06-19 08:33 | A.OFFVIS_ITS ---
Intake Vital Signs 06/19/23 08:38 06/19/23 08:38 Height 5 ft 9 in Weight 195 lb BMI 28.8 BP 177/90 H 175/90 H Blood Pressure Location Lt brachial Rt brachial Position Sitting Sitting Pulse 80 Pulse Source Pulse Oximeter Pulse Oximetry (%) 97 Oxygen Delivery Method Room Air Intake Visit Reasons: s/p Right L5-S1 facet aspiration/injection Intake Note: Pain today left side 7/10, right side 3.5/10 Back Line Cook Required: No Accompanied by: Self / Same As Patient Allergies amoxicillin [From Augmentin] Adverse Reaction (Severe, Verified 06/19/23 08:38) SEVERE DIARRHEA clavulanic acid [From Augmentin] Adverse Reaction (Severe, Verified 06/19/23 08:38) SEVERE DIARRHEA Sulfa (Sulfonamide Antibiotics) Adverse Reaction (Intermediate, Verified 06/19/23 08:38) MOUTH SORES, RASH tamsulosin Allergy (Severe, Uncoded 06/10/23 09:05) mouth sores HPI HPI Comments History of Present Illness Details Patient is status post right L5/S1 facet aspiration and injection on 06/10/[address] Guerrero. Patient reports 65-70% pain relief on the left low back since procedure with partial improvement in the daily functioning, movements in sleep. Denies any right-sided radicular symptoms since procedure. Patient rates his right low back pain at 3/10 and left at 7/10. He would like to undergo interventional treatments for left-sided low back pain. Patient has history of chronic mid back left-sided pain with positive findings of endplate Modic changes at T12, L1 and L2 levels. Unfortunately the BV and ablation procedure was not approved for these levels. He does not have Modic changes at any of the lower lumbar levels. Denies any recent cough, cold, infection, fever or other significant changes in medical history since last office visit. Patient denies any bladder or bowel incontinence or saddle anesthesia. Past Procedures: 06/10/23: Right L5/S1 facet aspiration a nd [id number] pain relief PRIOR Dr. Guerrero: 77-year-old male who presents today to t he office for a follow-up review of MRI report. The patient has a longstanding history of mid back pain that radiates towards the left chest abdomen as well as a history of right-sided sciatica that has been treated with physical therapy and injections off and on in the past. He has been followed by Dr. Devon Lao and had an SIJ injection on 12/2022. He states that the SIJ injection and brace did not provide significant relief. More recently has been having exacerbation of his longstanding right lower extremity radicular symptoms. He endorses pain in his right lower back that extends into his calf and thigh. [facility] Medical History BPH (benign prostatic hyperplasia) Encounter to establish care Erectile dysfunction due to arterial insufficiency Fracture, thoracic vertebra, compression Lumbar degenerative disc disease Essential hypertension Ascending aortic aneurysm Annual physical exam Normal colonoscopy Prostate CA HTN (hypertension) Allergic rhinitis Polycythemia Hyperlipidemia Hearing problem Insomnia Hypogonadism male Osteoporosis Surgical History Hx of transurethral resection of prostate Hx of cystoscopy History of esophagogastroduodenoscopy (EGD) Hx of appendectomy History of repair of hiatal hernia Hx of hernia repair History of colon resection Hx of nasal septoplasty Hx of colonoscopy Family History Father Alzheimer disease Colon cancer Colon polyps Mother No problems noted. Other Mental health disorder Social History Housing: House Alcohol intake: current Alcohol intake frequency: holidays/special occasions only Patient Tobacco Use Status: Former Tobacco user Quit Date: 30 yrs ago e-Cigarette/Vaping Use: Never Used Second Hand Smoke Exposure: No service: Yes Current occupational status: employed and retired Cognitive needs: No Hearing needs: Yes Vision needs: No Review of Systems Const All systems reviewed & are unremarkable except as noted in HPI and below Physical Exam Vital Signs: Last Vital Signs Pulse 80 06/19/23 08:38 BP 175/90 H 06/19/23 08:38 Pulse Ox 97 06/19/23 08:38 Oxygen Delivery Method Room Air 06/19/23 08:38 BMI result Body Mass Index 28.8 General: Appears afebrile. Alert and oriented. Mood and affect appropriate. Follows and participates in conversation appropriately. Respiratory effort is unlabored. Able to transition from sit to stand unassisted. Ambulates with bilaterally normal heel strike and toe off. Back/Spine/Pelvis Cervical Spine: cervical ROM normal and No Cervical spine tenderness Thoracic/Lumbar Spine: thoracic and lumbar spine normal to inspection, Lasegue's sign negative, straight leg raise negative bilaterally, pain with thoraco-lumbar ROM (Increased pain with flexion), paraspinal muscle tenderness on the left greater than right, thoraco-lumbar ROM limited, No thoracic spinal tenderness and lumbar spinal tenderness Results Reviewed Results Reviewed: 04/18/23: MR LUMBAR SPINE WITHOUT CONTRAST FINDINGS: Normal anatomic alignment. No suspicious marrow signal or focal osseous lesion. No significant marrow edema. T12 superior endplate Schmorl's node with associated fatty endplate marrow signal changes at T11-T12. Small L1-L2 endplate Schmorl's nodes. L2 vertebral body hemangioma. The vertebral body heights are maintained. Mild multilevel disc desiccation and height loss. The conus medullaris terminates at the level of L1. The distal spinal cord is normal in appearance. The cauda equina nerve roots appear normal. No significant abnormalities of the paraspinal musculature. Limited evaluation of the intra-abdominal structures without significant abnormalities. Right renal cyst. Partially visualized reservoir along the anterior pelvis related to penile prosthesis. The abdominal aorta is of normal contour and caliber. SPINAL LEVELS: T12-L1: No significant spinal canal or neural foraminal narrowing L1-L2: No significant spinal canal or neuroforaminal narrowing. L2-L3: No significant spinal canal or neuroforaminal narrowing. Broad-based disc bulge and mild facet arthropathy. L3-L4: No significant spinal canal or neuroforaminal narrowing. Broad-based disc bulge and mild facet arthropathy L4-L5: No significant spinal canal or neuroforaminal narrowing. Broad-based disc bulge with posterior annular fissure and mild facet arthropathy. L5-S1: Moderate facet arthropathy with small bilateral joint effusions. There is a new synovial cyst projecting anteriorly from the right facet joint measuring up to 8 mm which indents right dorsolateral thecal sac contributes to right suba rticular zone narrowing. Shallow disc bulge. No significant central spinal canal stenosis. Progressive moderate bilateral neural foraminal narrowing. IMPRESSION: 1. At L5-S1, there is moderate facet arthropathy and a new right-sided synovial cyst which contributes to right subarticular zone narrowing. There is also progressive moderate bilateral neural foraminal narrowing at this level. 2. Otherwise mild multilevel degenerative changes of the lumbar spine as described above without significant central spinal canal stenosis or high-grade neural foraminal narrowing. Assessment & Plan Assessment & Plan (1) Vertebrogenic low back pain: Code(s): M54.51 - Vertebrogenic low back pain (2) Lumbar degenerative disc disease: Code(s): M51.36 - Other intervertebral disc degeneration, lumbar region (3) Synovial cyst of lumbar facet joint: Code(s): M71.38 - Other bursal cyst, other site Plan Patient is status post right L5/S1 facet aspiration and injection on 06/10/[address] Guerrero is improved functioning, mobility, and sleep. He denies right lower extremity radicular symptoms since procedure. Patient would like to undergo interventional treatments for left-sided low back pain. Patient has history of chronic mid back left-sided pain with positive findings of endplate Modic changes at T12, L1 and L2 levels. Unfortunately the BV and ablation procedure was not approved for these levels. He does not have Modic changes at any of the lower lumbar levels. All questions were answered. Follow-up as needed. Medications: New diclofenac sodium 1% (Arthritis Pain (diclofenac)) 4 grams topical QID 100 grams 0RF pain M51.36 - Other intervertebral disc degeneration, lumbar region, M54.51 - Vertebrogenic low back pain Coding Level of Care Code Est Pt Level 3 (75143) Diagnoses Vertebrogenic low back pain M54.51 Lumbar degenerative disc disease M51.36 Synovial cyst of lumbar facet joint M71.38
[2023-06-19 08:38] VITALS: BP 175/90; BP 177/90; PULSE 80; O2SAT 97; BMI 28.8
== END 2023-06-19 09:00 | disposition home or self-care (01) ==
PROVIDERS: PCP Nurse Practitioner Family; Visit Provider Nurse Practitioner Family
DX: M54.51 Vertebrogenic low back pain (principal); M51.36 Other intervertebral disc degeneration, lumbar region; M71.38 Other bursal cyst, other site
CPT/HCPCS: 99213

== ENCOUNTER → 2023-06-19 08:30 | Outpatient (BNVA) | payer MEDICARE, SELFPAY | PROVIDERS: PCP Nurse Practitioner Family; Visit Provider Nurse Practitioner Family | DX: M54.51 Vertebrogenic low back pain (principal); M51.36 Other intervertebral disc degeneration, lumbar region; M71.38 Other bursal cyst, other site | CPT/HCPCS: 99212 ==

== ENCOUNTER 2023-06-29 15:11 | Outpatient (AMB) | payer MEDICARE, SELFPAY ==
[2023-06-29 15:32] VITALS: RESP 12; BMI 28.8
--- NOTE | 2023-06-29 15:32 | A.OFFVIS_ITS ---
Intake Vital Signs 06/29/23 15:32 Height 5 ft 9 in Weight 195 lb BMI 28.8 Blood Pressure Location Rt brachial Position Sitting Respiration 12 Pulse Source Pulse Oximeter Intake Visit Reasons: follow up / Intracept discussion/confirmed Allergies amoxicillin [From Augmentin] Adverse Reaction (Severe, Verified 06/29/23 15:36) SEVERE DIARRHEA clavulanic acid [From Augmentin] Adverse Reaction (Severe, Verified 06/29/23 15:36) SEVERE DIARRHEA Sulfa (Sulfonamide Antibiotics) Adverse Reaction (Intermediate, Verified 06/29/23 15:36) MOUTH SORES, RASH tamsulosin Allergy (Severe, Uncoded 06/29/23 15:36) mouth sores Medication List - Last Reconciled 06/29/23 by Aurelia Wu LPN cholecalciferol (vitamin D3) 2,000 units PO DAILY 30 days diclofenac sodium 1% (Arthritis Pain (diclofenac)) 4 grams topical QID docusate sodium (Colace) 100 mg PO BID 14 days labetalol 300 mg PO BID 90 days multivitamin 1 tab PO DAILY naproxen 500 mg PO BID PRN 7 days testosterone 1 packet transdermal DAILY 30 days zolpidem (Ambien) 10 mg PO BEDTIME PRN HPI follow up / Intracept discussion/confirmed HPI Details 77-year-old male who presents today to t he office for a follow-up discussion of intercept. The patient reports 50-60% relief following the procedure. Patient reports relief on the left low back since procedure with partial improvement in the daily functioning, movements in sleep. Denies any right- sided radicular symptoms since procedure. He would like to undergo interventional treatments for left-sided mid back pain that is increasingly debilitating in precludes him from participating in his usual activities. He denies any pain with bending, twisting, or lifting. He reports generalized pain when sitting in the chair. Past procedure: 06/10/23: Lumbar Intra-articular Facet I njections, Right L5/S1: 50-60% relief of radicular symptoms in the right leg. [facility] Medical History BPH (benign prostatic hyperplasia) Encounter to establish care Erectile dysfunction due to arterial insufficiency Fracture, thoracic vertebra, compression Lumbar degenerative disc disease Essential hypertension Ascending aortic aneurysm Annual physical exam Normal colonoscopy Prostate CA HTN (hypertension) Allergic rhinitis Polycythemia Hyperlipidemia Hearing problem Insomnia Hypogonadism male Osteoporosis Surgical History Hx of transurethral resection of prostate Hx of cystoscopy History of esophagogastroduodenoscopy (EGD) Hx of appendectomy History of repair of hiatal hernia Hx of hernia repair History of colon resection Hx of nasal septoplasty Hx of colonoscopy Family History Father Alzheimer disease Colon cancer Colon polyps Mother No problems noted. Other Mental health disorder Social History Housing: House Alcohol intake: current Alcohol intake frequency: holidays/special occasions only Patient Tobacco Use Status: Former Tobacco user Quit Date: 30 yrs ago e-Cigarette/Vaping Use: Never Used Second Hand Smoke Exposure: No service: Yes Current occupational status: employed and retired Cognitive needs: No Hearing needs: Yes Vision needs: No Review of Systems Const All systems reviewed & are unremarkable except as noted in HPI and below Physical Exam Vital Signs: Last Vital Signs Resp 12 06/29/23 15:32 BMI result Body Mass Index 28.8 General: Appears afebrile. Alert and oriented. Mood and affect appropriate. Follows and participates in conversation appropriately. Respiratory effort is unlabored. Able to transition from sit to stand unassisted. Ambulates with bilaterally normal heel strike and toe off. Results Reviewed Results Reviewed: No imaging is available for review. Assessment & Plan Assessment & Plan (1) Vertebrogenic low back pain: Code(s): M54.51 - Vertebrogenic low back pain Plan Discussed spinal cord stimulator vs. pain pump as a possible treatment options for vertebrogenic low back pain not amenable to injection therapies. This pain is intractable and debilitating him in his usual activities. He would not benefit from surgical intervention either. Given this anterior column pain that cannot be treated with basivertebral nerve ablation, the only things that might benefit him are SCS or intrathecal drug delivery. Will place a referral for psychology clearance. Once we have received psychology clearance, we will plan for trial of spinal cord stimulator trial. The patient will receive a call from [facility] for the psychology assessment. For time being, I recommend trying inversion tables and swimming to help decompress his disc spaces. Scribed for Dr. Guerrero by Zack Peter, medical apparatus model maker, on 06/29/2023. I, Dr. Guerrero, have personally reviewed and agree with the information entered by the scribe. Coding Level of Care Code Est Pt Level 3 (27631) Diagnoses Vertebrogenic low back pain M54.51
== END 2023-06-29 16:09 | disposition home or self-care (01) ==
PROVIDERS: PCP Nurse Practitioner Family; Visit Provider Internal Medicine
DX: M54.51 Vertebrogenic low back pain (principal)
CPT/HCPCS: 99213

== ENCOUNTER → 2023-06-29 15:11 | Outpatient (BNVA) | payer MEDICARE, SELFPAY | PROVIDERS: PCP Nurse Practitioner Family; Visit Provider Internal Medicine | DX: M54.51 Vertebrogenic low back pain (principal) | CPT/HCPCS: 99212 ==

== ENCOUNTER 2023-09-04 10:13 | Outpatient (REF) | payer MEDICARE, OTHER, SELFPAY ==
[2023-09-04 11:13] LABS: Hematocrit 42.7 % (42.0-52.0); Hemoglobin 13.7 g/dl (14.0-18.0); Mean Corpuscular HGB Conc 32.1 g/dl (31.0-36.0); Mean Corpuscular Hemoglobin 26.7 pg (27.0-33.0); Mean Corpuscular Volume 83.2 fL (80.0-98.0); Platelet Count 204 X10*3/uL (160-400); Red Blood Count 5.13 X10*6/uL (4.60-5.80); Red Cell Distribution Width 15.9 % (11.0-16.0); White Blood Count 4.8 X10*3/uL (4.8-10.8)
[2023-09-04 14:21] LABS: Prostate Specific Antigen 0.12 ng/mL (<0.05-4.0)
[2023-09-08 15:32] LABS: Testosterone, Total 925 ng/dL (250-1100)
== END 2023-09-04 10:14 | disposition home or self-care (01) ==
LOC: HO.LAB 10:13
PROVIDERS: PCP Nurse Practitioner Family; Referring Provider Urology; Visit Provider Internal Medicine
DX: Z12.5 Encounter for screening for malignant neoplasm of prostate (principal); E29.1 Testicular hypofunction; M71.38 Other bursal cyst, other site; M54.51 Vertebrogenic low back pain
CPT/HCPCS: 36415; 84153; 84403; 85027; 99212

== ENCOUNTER 2023-09-04 10:13 | Outpatient (AMB) | payer OTHER, MEDICARE, SELFPAY ==
--- NOTE | 2023-09-04 10:17 | A.OFFVIS_ITS ---
Intake Vital Signs 09/04/23 10:18 Height 5 ft 9 in Weight 197 lb BMI 29.1 BP 158/81 H Blood Pressure Location Lt brachial Position Sitting Respiration 12 Pulse 75 Pulse Source Pulse Oximeter Pulse Oximetry (%) 96 Oxygen Delivery Method Room Air Intake Visit Reasons: Follow Up/Procedure Discussion/confirmed Allergies amoxicillin [From Augmentin] Adverse Reaction (Severe, Verified 09/04/23 10:20) SEVERE DIARRHEA clavulanic acid [From Augmentin] Adverse Reaction (Severe, Verified 09/04/23 10:20) SEVERE DIARRHEA Sulfa (Sulfonamide Antibiotics) Adverse Reaction (Intermediate, Verified 09/04/23 10:20) MOUTH SORES, RASH tamsulosin Allergy (Severe, Uncoded 09/04/23 10:20) mouth sores Medication List - Last Reconciled 09/04/23 by Aurelia Wu LPN cholecalciferol (vitamin D3) 2,000 units PO DAILY 30 days diclofenac sodium 1% (Arthritis Pain (diclofenac)) 4 grams topical QID docusate sodium (Colace) 100 mg PO BID 14 days labetalol 300 mg PO BID 90 days multivitamin 1 tab PO DAILY naproxen 500 mg PO BID PRN 7 days testosterone 1 packet transdermal DAILY 30 days zolpidem (Ambien) 10 mg PO BEDTIME PRN HPI Follow Up/Procedure Discussion/confirmed HPI Details 77-year-old male who presents today to t he office for a follow-up. He rates his right leg pain at 4/10 in intensity and his left side at 3/10 in intensity. He reports that his pain is worse at night. He is able to work all day without any pain, but when he rests, sits in the evening, or lies down at night, his pain starts to worsen. He is able to stand or walk for a short period of time. He states that initially, after the procedure, he felt sharp sciatic- type neuralgia that kept worsening. He states that his trial is not scheduled yet. The patient is still waiting for SCS implant trial approval from [facility]. Past procedure: 06/10/23: Lumbar Intra-articular Facet I njections, Right L5/S1: 50-60% relief of radicular symptoms in the right leg. [facility] Medical History BPH (benign prostatic hyperplasia) Encounter to establish care Erectile dysfunction due to arterial insufficiency Fracture, thoracic vertebra, compression Lumbar degenerative disc disease Essential hypertension Ascending aortic aneurysm Annual physical exam Normal colonoscopy Prostate CA HTN (hypertension) Allergic rhinitis Polycythemia Hyperlipidemia Hearing problem Insomnia Hypogonadism male Osteoporosis Surgical History Hx of transurethral resection of prostate Hx of cystoscopy History of esophagogastroduodenoscopy (EGD) Hx of appendectomy History of repair of hiatal hernia Hx of hernia repair History of colon resection Hx of nasal septoplasty Hx of colonoscopy Family History Father Alzheimer disease Colon cancer Colon polyps Mother No problems noted. Other Mental health disorder Social History Housing: House Alcohol intake: current Alcohol intake frequency: holidays/special occasions only Patient Tobacco Use Status: Former Tobacco user Quit Date: 30 yrs ago e-Cigarette/Vaping Use: Never Used Second Hand Smoke Exposure: No service: Yes Current occupational status: employed and retired Cognitive needs: No Hearing needs: Yes Vision needs: No Review of Systems Const All systems reviewed & are unremarkable except as noted in HPI and below Physical Exam Vital Signs: Last Vital Signs Pulse 75 09/04/23 10:18 Resp 12 09/04/23 10:18 BP 158/81 H 09/04/23 10:18 Pulse Ox 96 09/04/23 10:18 Oxygen Delivery Method Room Air 09/04/23 10:18 BMI result Body Mass Index 29.1 General: Appears afebrile. Alert and oriented. Mood and affect appropriate. Follows and participates in conversation appropriately. Respiratory effort is unlabored. Able to transition from sit to stand unassisted. Ambulates with bilaterally normal heel strike and toe off. Results Reviewed Results Reviewed: 04/18/23: MR LUMBAR SPINE WITHOUT CONTRAST FINDINGS: Normal anatomic alignment. No suspicious marrow signal or focal osseous lesion. No significant marrow edema. T12 superior endplate Schmorl's node with associated fatty endplate marrow signal changes at T11-T12. Small L1-L2 endplate Schmorl's nodes. L2 vertebral body hemangioma. The vertebral body heights are maintained. Mild multilevel disc desiccation and height loss. The conus medullaris terminates at the level of L1. The distal spinal cord is normal in appearance. The cauda equina nerve roots appear normal. No significant abnormalities of the paraspinal musculature. Limited evaluation of the intra-abdominal structures without significant abnormalities. Right renal cyst. Partially visualized reservoir along the anterior pelvis related to penile prosthesis. The abdominal aorta is of normal contour and caliber. SPINAL LEVELS: T12-L1: No significant spinal canal or neural foraminal narrowing L1-L2: No significant spinal canal or neuroforaminal narrowing. L2-L3: No significant spinal canal or neuroforaminal narrowing. Broad-based disc bulge and mild facet arthropathy. L3-L4: No significant spinal canal or neuroforaminal narrowing. Broad-based disc bulge and mild facet arthropathy L4-L5: No significant spinal canal or neuroforaminal narrowing. Broad-based disc bulge with posterior annular fissure and mild facet arthropathy. L5-S1: Moderate facet arthropathy with small bilateral joint effusions. There is a new synovial cyst projecting anteriorly from the right facet joint measuring up to 8 mm which indents right dorsolateral thecal sac contributes to right subarticular zone narrowing. Shallow disc bulge. No significant central spinal canal stenosis. Progressive moderate bilateral neural foraminal narrowing. IMPRESSION: 1. At L5-S1, there is moderate facet arthropathy and a new right-sided synovial cyst which contributes to right subarticular zone narrowing. There is also progressive moderate bilateral neural foraminal narrowing at this level. 2. Otherwise mild multilevel degenerative changes of the lumbar spine as described above without significant central spinal canal stenosis or high-grade neural foraminal narrowing. Assessment & Plan Assessment & Plan (1) Synovial cyst of lumbar facet joint: Code(s): M71.38 - Other bursal cyst, other site (2) Vertebrogenic low back pain: Code(s): M54.51 - Vertebrogenic low back pain (3) Low back pain with right-sided sciatica: Code(s): M54.41 - Lumbago with sciatica, right side Plan Once again reviewed the findings of his right L5-S1 synovial cyst that we had tried to aspirate previously. Unfortunately he got only 1 week of relief from that aspiration with subsequent return of symptoms. We discussed radiofrequency ablation of the L5 dorsal ramus in combination with radiofrequency ablation of the L5-S1 facet capsule to obliterate the facet joint and possibly the synovial cyst that is stemming out of it. He had questions about surgical decompression of the same, but I feel that a laminectomy to get to the cyst would be a relatively extreme measure just to obliterate a synovial cyst with risk of subsequently developed an post-laminectomy syndrome. I would like to try a radiofrequency ablation 1st and see if that helps settle the issue. If the persist continues to be persistent, we can consider referral to Neurosurgery. He has previously tried physical therapy and oral medications. With respect to his candidacy for a right L5-S1 radiofrequency ablation, he got good diagnostic relief from the facet joint intervention for 1 week with subsequent return of symptoms. With respect to his intractable back pain secondary to vertebral endplate degeneration, we are awaiting scheduling his spinal cord stimulation trial in lieu of insurance approval. Patient expressed understanding. Scribed for Dr. Guerrero by Zack Peter, medical transport specialist, on 09/04/2023. I, Dr. Guerrero, have personally reviewed and agree with the information entered by the scribe. Coding Level of Care Code Est Pt Level 4 (49108) Diagnoses Synovial cyst of lumbar facet joint M71.38 Vertebrogenic low back pain M54.51 Low back pain with right-sided sciatica M54.41
[2023-09-04 10:18] VITALS: BP 158/81; PULSE 75; RESP 12; O2SAT 96; BMI 29.1
== END 2023-09-04 11:06 | disposition home or self-care (01) ==
PROVIDERS: PCP Nurse Practitioner Family; Visit Provider Internal Medicine
DX: M96.1 Postlaminectomy syndrome, not elsewhere classified (principal); M51.36 Other intervertebral disc degeneration, lumbar region; Z79.891 Long term (current) use of opiate analgesic; M19.011 Primary osteoarthritis, right shoulder; M25.511 Pain in right shoulder; G89.4 Chronic pain syndrome
CPT/HCPCS: 99214

== ENCOUNTER 2023-09-18 10:27 | Outpatient (AMB) | payer OTHER, SELFPAY ==
--- NOTE | 2023-09-18 10:40 | A.OFFVIS_ITS ---
Intake Intake Visit Reasons: 6M PSA/Testosterone(set) Intake Note: Patient presents today for a follow-up Meds- Testosterone gel Allergies to Antibiotic- Sulfa, Amoxicillin Blood Thinner- None Patient stated he needs refills for testosterone gel Patient Symptoms: None German Tutor Required: No Allergies amoxicillin [From Augmentin] Adverse Reaction (Severe, Verified 09/18/23 10:43) SEVERE DIARRHEA clavulanic acid [From Augmentin] Adverse Reaction (Severe, Verified 09/18/23 10:43) SEVERE DIARRHEA Sulfa (Sulfonamide Antibiotics) Adverse Reaction (Intermediate, Verified 09/18/23 10:43) MOUTH SORES, RASH tamsulosin Allergy (Severe, Uncoded 09/18/23 10:43) mouth sores HPI HPI Comments History of Present Illness Details Ermias is a pleasant male. He is a patient of Dr. Navarro. He is seen for the following urologic conditions - prostate cancer - erectile dysfunction - hypogonadism - nephrolithiasis High normal testosterone Using only 1 pack per day PSA stable - penile prosthetic functional however b uckling occurring with female on top position. - inflation in office successful Hypogonadism with daily testosterone patches Erectile dysfunction with penile prosthetic Nephrolithiasis minimal on left side Does have persistent back pain Has been on Fosamax previously for osteoporosis with vitamin-D 6 month follow-up PSA Prostate cancer - agent orange exposure external beam radiation 2014 Initial diagnosis 2014 Initial therapy radiation with hormones Previous mild hematuria responded to Proscar PSA - 09/06 0.14, 05/07 0.09, 03/07 0.1, 07/08 0.1, 03/08 485 <0.1 44, 09/09 925 0.12 Nocturia 2-3 times, daytime 3 hours - is slowly improving Hypogonadism Takes testosterone patches On Fosamax for osteoporosis with vitamin-D Laboratories - 11/04 testosterone 550, hematocrit 46.3, 05/07 T 357, 03/07 479, 09/09 925 Erectile dysfunction Persistent since radiation for prostate cancer Prior trial of oral tablets and vacuum pumps Failed maximum combination therapy with daily tadalafil and top up Was able to used corporal injections however did not reliably produce desired effect Penile prosthetic placed 08/07 Nephrolithiasis Imaging - 09/08 renal ultrasound bilateral cysts up to 3 cm, small stones left multiple 3 mm PFSH Medical History BPH (benign prostatic hyperplasia) Encounter to establish care Erectile dysfunction due to arterial insufficiency Fracture, thoracic vertebra, compression Lumbar degenerative disc disease Essential hypertension Ascending aortic aneurysm Annual physical exam Normal colonoscopy Prostate CA HTN (hypertension) Allergic rhinitis Polycythemia Hyperlipidemia Hearing problem Insomnia Hypogonadism male Osteoporosis Surgical History Hx of transurethral resection of prostate Hx of cystoscopy History of esophagogastroduodenoscopy (EGD) Hx of appendectomy History of repair of hiatal hernia Hx of hernia repair History of colon resection Hx of nasal septoplasty Hx of colonoscopy Family History Father Alzheimer disease Colon cancer Colon polyps Mother No problems noted. Other Mental health disorder Social History Housing: House Alcohol intake: current Alcohol intake frequency: holidays/special occasions only Patient Tobacco Use Status: Former Tobacco user Quit Date: 30 yrs ago e-Cigarette/Vaping Use: Never Used Second Hand Smoke Exposure: No service: Yes Current occupational status: employed and retired Cognitive needs: No Hearing needs: Yes Vision needs: No Review of Systems Const Denies chills and Denies fever(s) Card Reports no additional complaints and Denies syncope Resp Denies cough GI Denies abdominal pain and Denies heartburn Reports as per HPI and Denies change in libido Neuro Denies syncope Psych Denies change in libido Endo Denies change in libido Physical Exam Const General: cooperative, healthy appearing, comfortable and no acute distress Orientation/consciousness: patient oriented x3 HEENT Face and sinus: Yes normal facial exam Mouth: moist mucous membranes Neck Neck: Yes normal visual inspection, Yes full ROM and Yes trachea midline Chest Chest palpation & inspection: normal inspection of the chest Resp Effort & Inspection: normal respiratory effort, able to speak in complete sentences and no respiratory distress GI Inspection: Yes normal to inspection Back/Spine/Pelvis Cervical Spine: normal cervical lordosis Thoracic/Lumbar Spine: thoracic and lumbar spine normal to inspection Skin General skin exam: no rashes or lesions noted Neuro General: patient oriented x3, gait normal, tone normal and moves all extremities Extrem General: Yes normal to inspection and Yes capillary refill normal Assessment & Plan Assessment & Plan (1) Nephrolithiasis: Code(s): N20.0 - Calculus of kidney (2) Erectile dysfunction due to and not concurrent with radiation therapy: Code(s): N52.35 - Erectile dysfunction following radiation therapy (3) Prostate CA: Comment: 2015 s/p RTX, hormonal tx, f/u urology Dr. Ayers Code(s): C61 - Malignant neoplasm of prostate Plan Six-month follow-up lab work tele Orders: Orders Creatinine 6 Months E29.1 - Testicular hypofunction Prostate Specific Antigen 6 Months E29.1 - Testicular hypofunction Testosterone, Total 6 Months E29.1 - Testicular hypofunction Medications: Refilled testosterone Apply to shoulder and rub in until dry 1 packet transdermal DAILY 30 days 150 grams 5RF E29.1 - Testicular hypofunction Patient Instructions: Imaging studies, laboratory and physical exam results were discussed and reviewed in detail. No major barriers to patient understanding were identified. An opportunity to ask questions regarding the treatment plan was provided. All questions were answered. The patient expressed understanding and agreement with the above treatment plan. The patient is aware they should contact our office by phone for worsening of their current condition or the appearance of new urologic symptoms. Compliance is encouraged with any medications and followup testing that is ordered. It is a privilege to participate in the urologic care of your patient. If you have any questions or concerns regarding treatment for the above conditions, or other urologic issues, please do not hesitate to contact me. The office telephone contact is [phone]. This note is constructed using voice recognition software. While every effort has been made to ensure accuracy solvent recoverer errors may have been included. Yours sincerely, Dr Jd Ayers MD, [facility] Providers of Expert, Compassionate Care for the Genitourinary System Coding Level of Care Code Est Pt Level 4 (39444) Diagnoses Nephrolithiasis N20.0 Erectile dysfunction due to and not concurrent with radiation therapy N52.35 Prostate CA C61
== END 2023-09-18 11:18 | disposition home or self-care (01) ==
PROVIDERS: PCP Nurse Practitioner Family; Visit Provider Urology
DX: N20.0 Calculus of kidney (principal); N52.35 Erectile dysfunction following radiation therapy; C61 Malignant neoplasm of prostate
CPT/HCPCS: 99214

== ENCOUNTER → 2023-09-18 10:27 | Outpatient (BNVA) | payer OTHER, SELFPAY | PROVIDERS: PCP Nurse Practitioner Family; Visit Provider Urology | DX: N20.0 Calculus of kidney (principal); N52.35 Erectile dysfunction following radiation therapy; C61 Malignant neoplasm of prostate | CPT/HCPCS: 99212 ==

== ENCOUNTER 2023-10-09 09:55 | Outpatient (AMB) | payer OTHER, SELFPAY ==
--- NOTE | 2023-10-09 10:04 | A.OFFPC_ITS ---
Vital Signs 10/09/23 10:05 Height 5 ft 9 in Weight 201 lb BMI 29.7 BP 142/96 H Blood Pressure Location Lt brachial Position Sitting Pulse 68 Pulse Source Pulse Oximeter Pulse Oximetry (%) 96 Oxygen Delivery Method Room Air Intake Visit Reasons: Est. Care/Transfer from [facility] Note: Pt is here to est care Allergies Sulfa (Sulfonamide Antibiotics) Adverse Reaction (Intermediate, Verified 10/09/23 10:26) MOUTH SORES, RASH tamsulosin Allergy (Severe, Uncoded 10/09/23 10:26) mouth sores Medication List - Last Reconciled 10/09/23 by CORNELIO Diallo amlodipine 5 mg PO DAILY atorvastatin 20 mg PO BEDTIME cholecalciferol (vitamin D3) 2,000 units PO DAILY 30 days docusate sodium (Colace) 100 mg PO BID PRN labetalol 100 mg PO BID multivitamin 1 tab PO DAILY naproxen 500 mg PO BID PRN 7 days testosterone 1 packet transdermal DAILY 30 days zolpidem (Ambien) 10 mg PO BEDTIME PRN Tobacco use date assessed: 10/09/23 Fall risk assessment: No Falls in past year Last assessed Fall Risk: 10/09/23 Dental Screening Dental Screen Date: 10/09/23 Did you have a dental visit in the last 12 months?: Yes Did you have a dental problem in the last 6 months where you did not have access to dental care?: No Was dental information given to patient?: Patient has dentist HPI HPI Comments History of Present Illness Details Patient is a 77-year-old male here to establish care. His last colonoscopy was in 2021. He is up-to-date on his immunizations. He is currently being followed by Urology due to history of prostate cancer. 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 He also sees [facility] and is currently trying to procure a nerve stimulator device, pending insurance. [facility] He has a past medical history significant for hyperlipidemia, hypertension, insomnia, chronic thoracic back pain, history of prostate cancer. [facility] Medical History BPH (benign prostatic hyperplasia) Encounter to establish care Erectile dysfunction due to arterial insufficiency Fracture, thoracic vertebra, compression Lumbar degenerative disc disease Essential hypertension Ascending aortic aneurysm Annual physical exam Normal colonoscopy Prostate CA HTN (hypertension) Allergic rhinitis Polycythemia Hyperlipidemia Hearing problem Insomnia Hypogonadism male Osteoporosis Surgical History Hx of transurethral resection of prostate Hx of cystoscopy History of esophagogastroduodenoscopy (EGD) Hx of appendectomy History of repair of hiatal hernia Hx of hernia repair History of colon resection Hx of nasal septoplasty Hx of colonoscopy Family History Father Alzheimer disease Colon cancer Colon polyps Mother No problems noted. Other Mental health disorder Social History Housing: House Alcohol intake: current Alcohol intake frequency: holidays/special occasions only Patient Tobacco Use Status: Former Tobacco user Quit Date: 30 yrs ago e-Cigarette/Vaping Use: Never Used Second Hand Smoke Exposure: No service: Yes Current occupational status: employed and retired Cognitive needs: No Hearing needs: Yes Vision needs: No Questionnaire PHQ-9 Over the last 2 weeks, how often have you been bothered by any of the following problems? 1. Little interest or pleasure in doing things: not at all 2. Feeling down, depressed, or hopeless: not at all 3. Trouble falling or staying asleep, or sleeping too much: not at all 4. Feeling tired or having little energy: not at all 5. Poor appetite or overeating: not at all 6. Feeling bad about yourself - or that you are a failure or have let yourself or your family down: not at all 7. Trouble concentrating on things, such as reading the newspaper or watching t elevision: not at all 8. Moving or speaking so slowly that other people could have noticed. Or the opposite - being so fidgety or restless that you have been moving around a lot more than usual: not at all 9. Thoughts that you would be better off or of hurting yourself in some way: not at all Total score: 0 Depression Screening Interpretation: Negative Depression Screening Done: Yes 80682 - PHQ-9 Billing: Yes Source: Developed by Drs. Renato Galindo, Pia VermaMatheus and colleagues, with an educational nathalia from [employer]. Thrive Questionnaire Date Thrive assessed: 10/09/23 I am a: Patient What is your living situation today?: I have a steady place to live Within the past 12 months, did the food you bought not last and you didn't have the money to get more?: Never true Within the past 12 months, did you worry whether your food would run out before you got money to buy more?: Never true Do you have trouble paying for medicines?: No Do you have trouble getting transportation to medical appointments?: No Do you have trouble paying your heating and electricity bill?: No Do you have trouble taking care of your child, family member or friend?: No Do you have trouble with day-to-day activities such as bathing, preparing meals, shopping, managing finances, etc.?: No Are you currently unemployed and looking for a job?: No Are you interested in more education?: No THRIVE Score: 0 AUDIT C Alcohol Use Questionnaire (AUDIT-C) 1. How often do you have a drink containing alcohol?: Never 3. How often do you have six or more drinks on one occasion?: Never Total Score: 0 ISI-7 AMB Questionnaire ISI-7 Date ISI - 7 assessed: 10/09/23 Feeling nervous, anxious, or on edge: 0 = Not at all Not being able to stop or control worryin = Not at all Worrying too much about different things: 0 = Not at all Trouble relaxin = Not at all Being so restless that it is hard to sit still: 0 = Not at all Becoming easily annoyed or irritable: 0 = Not at all Feeling afraid as if something awful might happen: 0 = Not at all Total ISI-7 score (0-4 normal; 5-9 mild; 10-14 moderate; 15-21 severe): 0 Source: Developed by Drs. Renato Galindo, Matheus Faulkner and colleagues, with an educational nathalia from [employer]. ISI-7 Assessment Billing ISI-7 Assessment Tool: ISI-7 Assessment 44686 Review of Systems Const Details: Constitutional : No Weight loss, No Fever, No Chills, No Fatigue, No Malaise ENT/Mouth : No sore throat, No Rhinorrhea. Eyes: No Eye Pain, No Swelling, No Redness, No change in vision. Cardiovascular : No Chest Pain, No SOB, No Dyspnea on Exertion, No Orthopnea, No Edema, No Palpitations Respiratory : No Cough, No Sputum, No Wheezing Gastrointestinal : No Nausea, No Vomiting, No Diarrhea, No Constipation, No abdominal Pain, No Hematochezia, No Melena Musculoskeletal : Admits lower back pain. Neuro : Admits occasional burning down right leg, intermittent. No dizziness. Psych : No Anxiety/Panic, No Depression All other systems reviewed and are negative Physical exam (Primary Care) Vital Signs: Last Vital Signs Pulse 68 10/09/23 10:05 BP 142/96 H 10/09/23 10:05 Pulse Ox 96 10/09/23 10:05 Oxygen Delivery Method Room Air 10/09/23 10:05 Care Plan Goal for BP management: Patient is going to follow-up with the MD for blood pressure. BMI result Body Mass Index 29.7 Tobacco/Smoking Status: Tobacco use Status Tobacco use date assessed 10/09/23 10/09/23 10:12 Patient Tobacco Use Status Former Tobacco user 10/09/23 10:04 e-Cigarette/Vaping Use Never Used 10/09/23 10:04 PHQ-9: PHQ-9 Score PHQ-9: Total score 0 10/09/23 10:39 Depression Screening Interpretation: Negative Thrive Assessment: Date of Thrive Assessment Date Thrive assessed 10/09/23 10/09/23 10:26 Const Other: Appearance: Alert.? Oriented X3.? No acute distress.? Head: Normocephalic, atraumatic, Eyes: Pupils equal, round and reactive to light.? CVS: Normal heart rate and rhythm.? Pulses normal.? Respiratory: No respiratory distress.? Breath sounds normal.? Skin: Skin warm and dry.? Normal skin color.? Normal skin turgor.? Extremities: No lower extremity edema.? Neuro: Oriented X 3.? No motor deficit.? No sensory deficit. CN 2-12 intact Assessment and Plan Assessment & Plan (1) Essential hypertension: Comment: Patient will continue to take blood pressure measurements at home. He will up to go through [facility], for blood pressure medication. His establish provider over there is prescribing his amlodipine. He would like to continue to get that through them Code(s): I10 - Essential (primary) hypertension Plan: Patient will take blood pressure measurements at home and [facility]. he has been educated on signs of worsening symptoms and when to report back to the office or when to present to the emergency room. (2) Thoracic back pain: Comment: Patient has known issue chronic back pain. He is currently being seen by pain management but expressed interest in seeing our new physiatry provider. Will refer. Code(s): M54.6 - Pain in thoracic spine Qualifiers: Chronicity: chronic Back pain laterality: unspecified Qualified Code(s): M54.6 - Pain in thoracic spine; G89.29 - Other chronic pain Plan Patient will follow-up physical exam in 3-4 months Orders: Orders Comprehensive Met. Panel Today I10 - Essential (primary) hypertension Lipid Panel Today Z13.220 - Encounter for screening for lipoid disorders Vitamin D 25-OH (D2 and D3) Today Z13.21 - Encounter for screening for nutritional disorder Hemoglobin A1c Today Z13.1 - Encounter for screening for diabetes mellitus Vitamin B6 Today Z13.21 - Encounter for screening for nutritional disorder Vitamin B12 Today Z13.21 - Encounter for screening for nutritional disorder UA CC w/rflx Micro + Cult Today Z13.89 - Encounter for screening for other disorder TSH reflex Free T4 Today Z13.29 - Encounter for screening for other suspected endocrine disorder Referrals Physiatry Referral M54.51 - Vertebrogenic low back pain, M54.6 - Pain in thoracic spine, M71.38 - Other bursal cyst, other site Coding Level of Care Code Est Pt Level 3 (28902) Diagnoses Essential hypertension I10 Chronic thoracic back pain, unspecified back pain laterality M54.6; G89.29 Chronicity: chronic Back pain laterality: unspecified Additional Codes ISI-7 Assessment Billing - ISI-7 Assessment Tool: ISI-7 Assessment 44306 ([id number]) Time Spent (min) 45
[2023-10-09 10:05] VITALS: BP 142/96; PULSE 68; O2SAT 96; BMI 29.7
== END 2023-10-09 11:54 | disposition home or self-care (01) ==
PROVIDERS: PCP Nurse Practitioner Family; Visit Provider Nurse Practitioner Primary Care
DX: I10 Essential (primary) hypertension (principal); M54.6 Pain in thoracic spine; G89.29 Other chronic pain
CPT/HCPCS: 99213

== ENCOUNTER 2023-10-29 11:03 | Outpatient (AMB) | payer OTHER, SELFPAY ==
[2023-10-29 11:05] VITALS: BMI 29.7
--- NOTE | 2023-10-29 11:05 | MHC.OFFVIS ---
Intake Vital Signs 10/29/23 11:05 Height 5 ft 9 in Weight 201 lb BMI 29.7 Intake Visit Reasons: [employer]-Low back pain/Pain in thoracic spine Intake Note: Ermias is a 77 year old male who presents today as a new patient for a evaluation for his lower back/thoracic spine pain. Hx of MRI of the lumbar spine on 04/18/23. Patient reports ongoing pain for 10 + years. Pain runs down from his lower back and it moves down his right hip. He states that his pain is worse at night. Currently is having 5/10 pain on the pain scale. Allergies Sulfa (Sulfonamide Antibiotics) Adverse Reaction (Intermediate, Verified 10/29/23 11:11) MOUTH SORES, RASH tamsulosin Allergy (Severe, Uncoded 10/09/23 10:26) mouth sores Medication List - Last Reconciled 10/29/23 by Manisha Archer MD amlodipine 5 mg PO DAILY atorvastatin 20 mg PO BEDTIME cholecalciferol (vitamin D3) 2,000 units PO DAILY 30 days docusate sodium (Colace) 100 mg PO BID PRN labetalol 100 mg PO BID multivitamin 1 tab PO DAILY naproxen 500 mg PO BID PRN 7 days testosterone 1 packet transdermal DAILY 30 days zolpidem (Ambien) 10 mg PO BEDTIME PRN HPI HPI Comments History of Present Illness Details Chronic back pain 11-12 years now, lower and thoracic back pain, sciatic right side. Says it took many years to get diagnosed. History of prostrate CA. 6 months ago started seeing Dr. Guerrero, though modic changes. RF not approved for thoracic spine so cannot use it. Found to have synovial cyst which could be causing the numbness/pain on right leg. 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 Worse with sitting and night time. [facility] Medical History BPH (benign prostatic hyperplasia) Encounter to establish care Erectile dysfunction due to arterial insufficiency Fracture, thoracic vertebra, compression Lumbar degenerative disc disease Essential hypertension Ascending aortic aneurysm Annual physical exam Normal colonoscopy Prostate CA HTN (hypertension) Allergic rhinitis Polycythemia Hyperlipidemia Hearing problem Insomnia Hypogonadism male Osteoporosis Surgical History Hx of transurethral resection of prostate Hx of cystoscopy History of esophagogastroduodenoscopy (EGD) Hx of appendectomy History of repair of hiatal hernia Hx of hernia repair History of colon resection Hx of nasal septoplasty Hx of colonoscopy Family History Father Alzheimer disease Colon cancer Colon polyps Mother No problems noted. Other Mental health disorder Social History Housing: House Alcohol intake: current Alcohol intake frequency: holidays/special occasions only Patient Tobacco Use Status: Former Tobacco user Quit Date: 30 yrs ago e-Cigarette/Vaping Use: Never Used Second Hand Smoke Exposure: No service: Yes Current occupational status: employed and retired Cognitive needs: No Hearing needs: Yes Vision needs: No Review of Systems Const All systems reviewed & are unremarkable except as noted in HPI and below Physical Exam Vital Signs: BMI result Body Mass Index 29.7 Constitutional: Patient appears to be in no acute distress, well nourished and well developed. Patient was appropriately conversant and oriented. Good historian. MSK: No specific abnormalities found on inspection of the spine and all extremities. No pain with palpation over the lumbar area. Lumbar ROM was full. Hunched forward posture. Bilateral hip, knee and ankle ROM WNL. No ligamentous laxity or crepitance. No increased effusion. Straight-leg raising test positive right. FABERE test negative. Strength is 5/5 in all muscle groups tested. No increased tone noted. Neurological: Neurologic examination of the upper and lower extremities was nonfocal with intact sensation, muscle stretch reflexes and without focal motor deficits . Castro?s negative bilaterally. Babinski was down going bilaterally. Clonus was negative. Gait is non-antalgic without loss of balance. Results Reviewed Results Reviewed: Ordering Physician: Luis Guerrero MD Date of Service: 04/18/23 Procedure(s): MR lumbar spine wo con Accession Number(s): [id number] cc: Luis Guerrero MD; Christi Mata~ EXAMINATION: MR LUMBAR SPINE WITHOUT CONTRAST CLINICAL INFORMATION: Left lower back pain, right leg pain COMPARISON: MRI lumbar spine 04/05/2014 TECHNIQUE: MRI of the lumbar spine was obtained using routine sequences without contrast. FINDINGS: Normal anatomic alignment. No suspicious marrow signal or focal osseous lesion. No significant marrow edema. T12 superior endplate Schmorl's node with associated fatty endplate marrow signal changes at T11-T12. Small L1-L2 endplate Schmorl's nodes. L2 vertebral body hemangioma. The vertebral body heights are maintained. Mild multilevel disc desiccation and height loss. The conus medullaris terminates at the level of L1. The distal spinal cord is normal in appearance. The cauda equina nerve roots appear normal. No significant abnormalities of the paraspinal musculature. Limited evaluation of the intra-abdominal structures without significant abnormalities. Right renal cyst. Partially visualized reservoir along the anterior pelvis related to penile prosthesis. The abdominal aorta is of normal contour and caliber. SPINAL LEVELS: T12-L1: No significant spinal canal or neural foraminal narrowing L1-L2: No significant spinal canal or neuroforaminal narrowing. L2-L3: No significant spinal canal or neuroforaminal narrowing. Broad-based disc bulge and mild facet arthropathy. L3-L4: No significant spinal canal or neuroforaminal narrowing. Broad-based disc bulge and mild facet arthropathy L4-L5: No significant spinal canal or neuroforaminal narrowing. Broad-based disc bulge with posterior annular fissure and mild facet arthropathy. L5-S1: Moderate facet arthropathy with small bilateral joint effusions. There is a new synovial cyst projecting anteriorly from the right facet joint measuring up to 8 mm which indents right dorsolateral thecal sac contributes to right subarticular zone narrowing. Shallow disc bulge. No significant central spinal canal stenosis. Progressive moderate bilateral neural foraminal narrowing. MR/MR lumbar spine wo con IMPRESSION: 1. At L5-S1, there is moderate facet arthropathy and a new right-sided synovial cyst which contributes to right subarticular zone narrowing. There is also progressive moderate bilateral neural foraminal narrowing at this level. 2. Otherwise mild multilevel degenerative changes of the lumbar spine as described above without significant central spinal canal stenosis or high-grade neural foraminal narrowing. I reviewed records from the following: Pain Mangement - 06/10/23: Lumbar Intra-articular Facet Injections, Right L5/S1: 50-60% relief of radicular symptoms in the right leg. Once again reviewed the findings of his right L5-S1 synovial cyst that we had tried to aspirate previously. Unfortunately he got only 1 week of relief from that aspiration with subsequent return of symptoms. We discussed radiofrequency ablation of the L5 dorsal ramus in combination with radiofrequency ablation of the L5-S1 facet capsule to obliterate the facet joint and possibly the synovial cyst that is stemming out of it. He had questions about surgical decompression of the same, but I feel that a laminectomy to get to the cyst would be a relatively extreme measure just to obliterate a synovial cyst with risk of subsequently developed an post-laminectomy syndrome. I would like to try a radiofrequency ablation 1st and see if that helps settle the issue. If the persist continues to be persistent, we can consider referral to Neurosurgery. He has previously tried physical therapy and oral medications. With respect to his candidacy for a right L5-S1 radiofrequency ablation, he got good diagnostic relief from the facet joint intervention for 1 week with subsequent return of symptoms. With respect to his intractable back pain secondary to vertebral endplate degeneration, we are awaiting scheduling his spinal cord stimulation trial in lieu of insurance approval. Patient expressed understanding. Assessment & Plan Assessment & Plan (1) Synovial cyst of lumbar facet joint: Code(s): M71.38 - Other bursal cyst, other site (2) Thoracic back pain: Comment: Patient has known issue chronic back pain. He is currently being seen by pain management but expressed interest in seeing our new physiatry provider. Code(s): M54.6 - Pain in thoracic spine Qualifiers: Chronicity: chronic Back pain laterality: unspecified Qualified Code(s): M54.6 - Pain in thoracic spine; G89.29 - Other chronic pain (3) Low back pain with right-sided sciatica: Code(s): M54.41 - Lumbago with sciatica, right side Qualifiers: Chronicity: chronic Back pain laterality: right Qualified Code(s): M54.41 - Lumbago with sciatica, right side; G89.29 - Other chronic pain Plan Pleasant 77-year-old man with chronic axial back pain, but also chronic right radiculitis. We reviewed MRI findings. We also reviewed notes from pain management Dr. Guerrero. Patient is very willing to undergo right L5 radiofrequency ablation mentioned by Dr. Guerrero in his note. Communicated with pain management office Dr. Guerrero via workload message as patient has not received any further instructions or schedule from them. We will let patient know once I hear from them. He did mentioned numbness on his right foot. Could be lumbar related. No history of diabetes. If this persist despite interventions from pain management, we would consider EMG. Assessment and plan discussed with patient, and patient was agreeable. All questions were answered thoroughly. Manisha Archer MD, MARCOS Board Certified, [place] Board of Physical Medicine and Rehabilitation (ABPMR) Board Certified, [place] Board of Electrodiagnostic Medicine (ABEM) Coding Level of Care Code New Pt Level 4 (44495) Diagnoses Synovial cyst of lumbar facet joint M71.38 Chronic thoracic back pain, unspecified back pain laterality M54.6; G89.29 Chronicity: chronic Back pain laterality: unspecified Chronic right-sided low back pain with right-sided sciatica M54.41; G89.29 Chronicity: chronic Back pain laterality: right
== END 2023-10-29 11:29 | disposition home or self-care (01) ==
PROVIDERS: PCP Nurse Practitioner Primary Care; Visit Provider Physical Medicine & Rehabilitation
DX: M71.38 Other bursal cyst, other site (principal); M54.6 Pain in thoracic spine; G89.29 Other chronic pain; M54.41 Lumbago with sciatica, right side
CPT/HCPCS: 99204

== ENCOUNTER → 2023-10-29 11:03 | Outpatient (BNVA) | payer OTHER, SELFPAY | PROVIDERS: PCP Nurse Practitioner Primary Care; Visit Provider Physical Medicine & Rehabilitation ==

== ENCOUNTER 2024-01-20 11:01 | Outpatient (REF) | payer OTHER, SELFPAY ==
[2024-01-20 13:44] LABS: Appearance Urine Clear; Color Urine Yellow; Glucose Urine UA Negative (Negative); Leukocyte Esterase Urine Trace (Negative); Nitrite Urine Negative (Negative); UMIC TRIGGER UACC YES; Urine Blood Trace (Negative); Urine Ketones Negative (Negative); Urine Protein Trace mg/dL (Neg-Trace)
[2024-01-20 13:49] LABS: Bacteria Urine None Seen (None Seen); Hyaline Casts Urine 0-2 /LPF (0-2); Squamous Epithelial Cell Urine 0-2 /HPF (0-2); WBC Urine 0-5 /HPF (0-5)
[2024-01-20 14:31] LABS: Estimated Average Glucose 114 mg/dL; Hemoglobin A1c % 5.6 % (<6.0)
[2024-01-20 14:36] LABS: Alanine Aminotransferase 24 U/L (0-40); Albumin Level 4.3 g/dL (3.5-5.0); Alkaline Phosphatase 66 U/L (39-117); Anion Gap 13 (12-20); Aspartate Amino Transferase 23 U/L (5-37); Bilirubin Total 0.8 mg/dL (0.0-1.0); Blood Urea Nitrogen 15 mg/dL (9-16); Calcium 9.4 mg/dL (8.4-10.2); Carbon Dioxide 22 mmol/L (22-29); Chloride 108 mmol/L (96-108); Cholesterol 143 mg/dL (<200); Estimated Glomerular Filt Rate > 60; Glucose Random 96 mg/dL (60-115); HDL Cholesterol 46 mg/dL (>40); LDL Cholesterol Calculated 84 mg/dL (<100); Sodium 139 mmol/L (135-145); Total Protein 7.1 g/dL (6.5-8.0); Triglycerides 67 mg/dL (<150)
[2024-01-20 14:54] LABS: Vitamin B12 454 pg/mL (200-900)
[2024-01-20 14:55] LABS: TSH reflex Free T4 0.55 uIU/mL (0.32-4.0)
[2024-01-25 10:38] LABS: Vitamin D 25-OH, D2 <4 ng/mL; Vitamin D 25-OH, D3 37 ng/mL; Vitamin D 25-OH, Total 37 ng/mL (30-100)
[2024-01-26 13:58] LABS: Vitamin B6 15.2 ng/mL (2.1-21.7)
== END 2024-01-20 11:02 | disposition home or self-care (01) ==
LOC: HO.HMGCLDS 11:01
PROVIDERS: PCP Nurse Practitioner Primary Care; Referring Provider Urology; Visit Provider Nurse Practitioner Primary Care
DX: I10 Essential (primary) hypertension (principal); Z13.220 Encounter for screening for lipoid disorders; Z13.1 Encounter for screening for diabetes mellitus; Z13.29 Encounter for screening for other suspected endocrine disorder; Z13.21 Encounter for screening for nutritional disorder
CPT/HCPCS: 36415; 80053; 80061; 81001; 82306; 82607; 83036; 84207; 84443

== ENCOUNTER → 2024-01-22 12:46 | Outpatient (AMB) | payer OTHER, SELFPAY ==
--- NOTE | 2024-01-22 12:44 | MHC.PC.OV ---
Vital Signs 01/22/24 12:47 Height 5 ft 9 in Weight 194 lb BMI 28.6 BP 152/90 H Blood Pressure Location Rt brachial Position Sitting Pulse 82 Pulse Source Pulse Oximeter Pulse Oximetry (%) 96 Oxygen Delivery Method Room Air Intake Visit Reasons: Annual PE Intake Note: pt here for annual PE. Last colonoscopy 01/03/2022 Allergies sulfamethoxazole [From Bactrim] Allergy (Verified 01/22/24 13:17) Mouth sores, Stomach pains trimethoprim [From Bactrim] Allergy (Verified 01/22/24 13:17) Mouth sores, Stomach pains Sulfa (Sulfonamide Antibiotics) Adverse Reaction (Intermediate, Verified 01/22/24 13:17) MOUTH SORES, RASH Medication List - Last Reconciled 01/22/24 by CORNELIO Diallo amlodipine 3 tabs orally daily; 7.5 mg atorvastatin 20 mg PO BEDTIME cholecalciferol (vitamin D3) 2,000 units PO DAILY 30 days docusate sodium (Colace) 100 mg PO BID PRN multivitamin 1 tab PO DAILY naproxen 500 mg PO BID PRN 7 days testosterone 1 packet transdermal DAILY 30 days zolpidem (Ambien) 10 mg PO BEDTIME PRN Tobacco use date assessed: 01/22/24 Fall risk assessment: No Falls in past year Last assessed Fall Risk: 01/22/24 Dental Screening Dental Screen Date: 01/22/24 Did you have a dental visit in the last 12 months?: Yes Did you have a dental problem in the last 6 months where you did not have access to dental care?: No Was dental information given to patient?: Patient has dentist HPI HPI Comments History of Present Illness Details Patient is a 78-year-old male here for physical exam. Do not have records the patient tetanus status. Will get records from previous provider. Patient up-to-date with colonoscopy performed in 2021. Has establish care with GI. Patient is due for Prevnar 20 shot today. Declined in office. Patient states he will get through the [place] Medical history significant for elevated fasting glucose, fatty liver, low back pain with right-sided sciatica. Patient reports history of low back injection, hyperlipidemia, hypertension, AAA - followed by [facility], history of prostate cancer - followed by Urology Dr. Ayers, thoracic back pain, and osteopenia. He has establish care with physiatry and pain management is in the process with insurance of trying to get implanted frequency device for thoracic discomfort. [facility] Medical History (Updated 01/22/24 @ 13:49 by CORNELIO Diallo) HTN (hypertension) BPH (benign prostatic hyperplasia) Encounter to establish care Erectile dysfunction due to arterial insufficiency Fracture, thoracic vertebra, compression Lumbar degenerative disc disease Essential hypertension Ascending aortic aneurysm Annual physical exam Normal colonoscopy Prostate CA Allergic rhinitis Polycythemia Hyperlipidemia Hearing problem Insomnia Hypogonadism male Osteoporosis Surgical History Hx of transurethral resection of prostate Hx of cystoscopy History of esophagogastroduodenoscopy (EGD) Hx of appendectomy History of repair of hiatal hernia Hx of hernia repair History of colon resection Hx of nasal septoplasty Hx of colonoscopy Family History Father Alzheimer disease Colon cancer Colon polyps Mother No problems noted. Other Mental health disorder Social History Housing: House Alcohol intake: current Alcohol intake frequency: holidays/special occasions only Patient Tobacco Use Status: Former Tobacco user e-Cigarette/Vaping Use: Never Used Second Hand Smoke Exposure: No service: Yes Current occupational status: employed and retired Current occupational exposures/hazards: No Cognitive needs: No Hearing needs: Yes Vision needs: No Questionnaire Thrive Questionnaire Date Thrive assessed: 10/09/23 AUDIT C Alcohol Use Questionnaire (AUDIT-C) 1. How often do you have a drink containing alcohol?: Never 3. How often do you have six or more drinks on one occasion?: Never Total Score: 0 ISI-7 AMB Questionnaire ISI-7 Date ISI - 7 assessed: 10/09/23 Source: Developed by Drs. Renato Galindo, Pia Verma, Matheus Patten and colleagues, with an educational nathalia from [employer]. Review of Systems Const All systems reviewed & are unremarkable except as noted in HPI and below Physical exam (Primary Care) Care Plan Goal for BP management: Patient will have amlodipine titrated up from 7.5 mg to 10 mg p.o. daily. Next steps: Take blood pressure measurements at home. Has follow-up appoint with Cardiology in 2 weeks. Tobacco/Smoking Status: Tobacco use Status Tobacco use date assessed 01/22/24 01/22/24 12:47 Patient Tobacco Use Status Former Tobacco user 01/22/24 12:45 e-Cigarette/Vaping Use Never Used 01/22/24 12:45 Thrive Assessment: Date of Thrive Assessment Date Thrive assessed 10/09/23 01/22/24 12:45 Advance Care Planning discussion: Completed/Scanned Date of discussion: 01/22/24 Forms completed: MOLST (Patient wants to bring home and discussed with .) Const Other: Appearance: Alert.? Oriented X3.? No acute distress.? Head: Normocephalic. Eyes: Pupils equal, round and reactive to light.?Sclera white. ENT: Pharynx normal.?TM intact right side pearly bautista. Left side cerumen impaction. Neck: Normal inspection.? Neck supple.? CVS: Normal heart rate and rhythm.? Pulses normal.? Respiratory: No respiratory distress.? Breath sounds normal.? Abdomen: Soft and nontender.? Skin: Skin warm and dry.? Normal skin color.? Normal skin turgor.? Extremities: Scant lower extremity edema. 5/5 strength to bilateral upper and lower extremities Back: No midline tenderness, no C-spine tenderness, full range of motion, no CVA tenderness bilaterally Neuro: Oriented X 3.? No motor deficit.? No sensory deficit. CN 2-12 intact Results Reviewed Results Reviewed: Sodium 139 135-145 mmol/L Potassium 4.0 3.3-5.1 mmol/L CL 108 96-108 mmol/L CO2 22 22-29 mmol/L Gap 13 12-20 BUN 15 9-16 mg/dL Creat 0.69 0.5-1.4 mg/dL EGFR > 60 NOTE: For -[place] individuals, multiply the result by 1.210. Chronic Kidney Disease: Estimated GFR < 60 mL/min/1.73m2 Severe Kidney Disease: Estimated GFR < 15 mL/min/1.73m2 Glucose, Random 96 60-115 mg/dL CA 9.4 8.4-10.2 mg/dL Total Bili 0.8 0.0-1.0 mg/dL AST (GOT) 23 5-37 U/L ALT (GPT) 24 0-40 U/L Protein, Total 7.1 6.5-8.0 g/dL Alb 4.3 3.5-5.0 g/dL Triglyceride 67 <150 mg/dL Desirable Triglyceride: less than 150 mg/dL Borderline High Triglyceride 150-199 mg/dL High Triglyceride: 200-499 mg/dL Very High Triglyceride: greater than or equal to 5OO mg/dL Cholesterol 143 <200 mg/dL Desirable Cholesterol: less than 200 mg/dL Borderline High Cholesterol: 200-239 mg/dL High Cholesterol: greater than 239 mg/dL LDL Calculated 84 <100 mg/dL Desirable LDL: less than 100 mg/dL Near Optimal/Above Optimal LDL: 110-129 mg/dL Borderline High LDL: 130-159 mg/dL High LDL: 160-189 mg/dL Very High LDL: greater than or equal to 190 mg/dL HDL 46 >40 mg/dL Desirable HDL: greater than 40 mg/dL Note: This HDL assay may give artificially low results in patients with liver disease. Alk Phos 66 39-117 U/L TSH 0.55 0.32-4.0 uIU/mL Assessment and Plan Assessment & Plan (1) Encounter for physical examination: Comment: Patient recently draw labs which were improved from previous draw. Patient declining Tdap, declining Prevnar 20 today. Patient following up with GI for next colonoscopy which is due in 1 year. Patient up-to-date with PSA Code(s): Z00.00 - Encounter for general adult medical examination without abnormal findings (2) Vertebrogenic low back pain: Comment: Patient is currently being seen by pain management as well as physiatry. Multiple MRIs and imaging studies on file. Intermittently utilizes Tylenol and naproxen. Patient has been educated on side effects of naproxen not to utilize with hypertension. Patient is waiting unsure in for implantable radiofrequency device. Patient states that his back pain is improved when he stands or moves around. Code(s): M54.51 - Vertebrogenic low back pain (3) Erectile dysfunction due to and not concurrent with radiation therapy: Comment: Has establish care with Urology. Patient utilizes testosterone gel. Code(s): N52.35 - Erectile dysfunction following radiation therapy (4) Elevated fasting glucose: Comment: Improved from previous draw last A1c 5.6. Patient will continue to exercise and improved diet Code(s): R73.01 - Impaired fasting glucose (5) Hyperlipidemia: Comment: Utilizing atorvastatin with good effect Code(s): E78.5 - Hyperlipidemia, unspecified Qualifiers: Hyperlipidemia type: unspecified Qualified Code(s): E78.5 - Hyperlipidemia, unspecified (6) Ascending aortic aneurysm: Comment: Follow-up by Cardiology. Has upcoming appointment in 2 weeks Code(s): I71.2 - Thoracic aortic aneurysm, without rupture Qualifiers: Presence of rupture: without rupture Qualified Code(s): I71.21 - Aneurysm of the ascending aorta, without rupture (7) HTN (hypertension): Comment: Patient recently had labetalol discontinued. Also has lisinopril discontinued. Patient currently taking 7.5 mg amlodipine. He has been instructed to increase that to 10 mg p.o. daily. Code(s): I10 - Essential (primary) hypertension Qualifiers: Hypertension type: primary hypertension Qualified Code(s): I10 - Essential (primary) hypertension Plan: Draw CBC Plan Follow-up in 6 months Orders: Orders Complete Blood Count Auto Diff Today Z13.0 - Encounter for screening for diseases of the blood and blood-forming organs and certain disorders involving the immune mechanism Coding Level of Care Code Est Pt Prev Care >65y(90548) Diagnoses Encounter for physical examination Z00.00 Vertebrogenic low back pain M54.51 Erectile dysfunction due to and not concurrent with radiation therapy N52.35 Elevated fasting glucose R73.01 Hyperlipidemia, unspecified hyperlipidemia type E78.5 Hyperlipidemia type: unspecified Aneurysm of ascending aorta without rupture I71.21 Presence of rupture: without rupture Primary hypertension I10 Hypertension type: primary hypertension Additional Codes Vital Signs *Quality* - Advance Care Planning discussion: Completed/Scanned ([id number]) Time Spent (min) 28
[2024-01-22 12:47] VITALS: BP 152/90; PULSE 82; O2SAT 96; BMI 28.6
== END ==
PROVIDERS: PCP Nurse Practitioner Primary Care; Visit Provider Nurse Practitioner Primary Care
DX: Z00.00 Encounter for general adult medical examination without abnormal findings (principal); I71.21 Aneurysm of the ascending aorta, without rupture; M54.51 Vertebrogenic low back pain; N52.35 Erectile dysfunction following radiation therapy; R73.01 Impaired fasting glucose; E78.5 Hyperlipidemia, unspecified; I10 Essential (primary) hypertension
CPT/HCPCS: 1123F; 99397

== ENCOUNTER → 2024-02-05 12:39 | Outpatient (REF) | payer OTHER, SELFPAY ==
--- NOTE | 2024-02-05 12:41 | CA_ITS ---
Transthoracic Echocardiogram Patient (Last, First, Middle): Ermias [place] J Gender: Male Date of : 1945 Age: 78 Procedure Date: 02/05/2024 Procedure Type: Transthoracic Echocardiogram Location: OP Height: 175.26 cm Weight: 86.18 kg BSA: 2.02 m2 Heart Rate: bpm BP: 126 / 84 mmHg [employer]: TO Referring MD: Giancarlo Leigh MD Symptoms: I71.2 - Thoracic aortic aneurysm, without rupture Study Quality: Adequate Conclusions: - Normal left ventricular size, thickness, systolic function, and wall motion. Normal global longitudinal strain. - Normal right ventricular cavity size and systolic function. - There is mild dilatation of the sinuses of Valsalva measuring 4.21 cm and mild dilatation of the ascending aorta measuring 4.10 cm. Findings Left Ventricle Normal left ventricular size, thickness, systolic function, and wall motion. The visually estimated ejection fraction is between 60-65%. Diastolic function is normal for age. Right Ventricle Normal right ventricular cavity size and systolic function. Atria The left atrium is likely dilated. Aortic Valve Normal aortic valve structure and function. There is no aortic valve stenosis. There is no aortic valve regurgitation. Mitral Valve The mitral valve appears normal. There is trace mitral valve regurgitation. There is no mitral valve stenosis. Pulmonic Valve Normal pulmonic valve structure and function. There is no pulmonic valve regurgitation. Tricuspid Valve Normal tricuspid valve structure. There is trace tricuspid valve regurgitation. Normal right atrial pressure. There is no evidence of pulmonary hypertension. Great Vessels There is mild dilatation of the sinuses of Valsalva measuring 4.21 cm and mild dilatation of the ascending aorta measuring 4.10 cm. The visualized portions of the pulmonary artery and branches are normal. Venous The inferior vena cava is normal in size and collapses greater than 50% with inspiration. Pericardium/Pleural There is no evidence of pericardial effusion. Prior Study Comparison No significant change compared to prior study dated: 01/20/2023. Measurements 2D Linear Measurements IVSd: 1.10 0.6-0.9/0.6-1.0 cm LVIDd: 4.56 3.9-5.3/4.2-5.9 cm LVIDd Index: 2.26 2.4-3.2/2.2-3.1 cm/m2 LVIDs: 3.19 2.0-3.6 cm LVPWd: 1.02 0.7-1.1 cm LA Diam: 4.00 2.7-3.8/3.0-4.0 cm LAIDs Index: 1.98 1.5-2.3 cm/m2 LV Mass: 211.39 67-162/88-224 g LV Mass Index: 104.65 43-95/49-115 g/m2 LVOT Diam: 2.40 3.0+(-)1.3 cm 2D Systolic Function EF 4C: 60.50 >55% EF 2C: 63.00 >55% EF BiP: 61.60 >55% Mitral Valve MV Pk E: 0.57 MV PK A: 0.68 MV Decel Time: 289.00 E/A: 0.80 E'Lateral: 7.51 E'Medial: 4.57 E/E' Med: 12.50 E/E' Lat: 7.60 PHT: 85.00 MVA PHT: 2.59 Decel Spink: 1.97 Aortic Valve AoV Pk Td: 1.41 AoV Mn Td: 0.94 AoV VTI: 0.31 AoV Pk Grad: 8.00 Aov Mn Grad: 4.00 ORALIA Cont.VTI: 3.50 LVOT LVOT Pk Td: 1.11 LVOT Mn Td: 0.68 LVOT VTI: 0.24 LVOT Pk Grad: 5.00 LVOT Mn Grad: 2.00 LVOT Diam: 2.40 LVOT Area: 4.52 Diastolic Function MV Pk E: 0.57 MV Pk A: 0.68 E/A: 0.80 E'Medial: 4.57 E/E' Med: 12.50 E' Laterial: 7.51 E/E' Lat: 7.60 Right Ventricle TAPSE (mm): 27.20 TVS' Td: 17.70 Tricuspid Valve TR Pk Td: 2.39 TR Pk Grad: 23.00 RA Press: 3.00 RVSP: 26.00 Great Vessels Aorta Sinus of Valsalva: 4.21 2.0-3.[address] Ridge: 3.28 1.7-3.4 cm Ao Asc: 4.10 2.1-3.4 cm Ao Arch: 2.70 Updated in Other Vendor System with Status of Final Dariusz Avendano MD electronically signed on 02/06/2024 11:19:47 PM with status of Final
== END ==
LOC: HO.CARD 12:39
PROVIDERS: PCP Nurse Practitioner Primary Care; Visit Provider Internal Medicine
DX: I71.20 Thoracic aortic aneurysm, without rupture, unspecified (principal)
CPT/HCPCS: 93306

== ENCOUNTER → 2024-02-05 12:41 | Outpatient (BNV) | payer OTHER, SELFPAY | PROVIDERS: PCP Nurse Practitioner Primary Care; Visit Provider Internal Medicine Cardiovascular Disease | DX: I71.21 Aneurysm of the ascending aorta, without rupture (principal) | CPT/HCPCS: 93306 ==

== ENCOUNTER 2024-03-02 13:39 | Outpatient (AMB) | payer OTHER, SELFPAY ==
--- NOTE | 2024-03-02 13:40 | MHC.OFFVIS ---
Vital Signs 03/02/24 13:41 Height 5 ft 9 in Weight 190 lb 0.615 oz BMI 28.1 BP 136/72 Blood Pressure Location Lt brachial Position Sitting Pulse 82 Intake Visit Reasons: r/s 02/11/24 1 year followup w/[facility] [employer] Required: No Accompanied by: Self / Same As Patient Allergies sulfamethoxazole [From Bactrim] Allergy (Verified 01/22/24 13:17) Mouth sores, Stomach pains trimethoprim [From Bactrim] Allergy (Verified 01/22/24 13:17) Mouth sores, Stomach pains Sulfa (Sulfonamide Antibiotics) Adverse Reaction (Intermediate, Verified 01/22/24 13:17) MOUTH SORES, RASH Medication List - Last Reconciled 03/02/24 by Giancarlo Leigh MD amlodipine 10 mg PO DAILY atorvastatin 20 mg PO BEDTIME cholecalciferol (vitamin D3) 2,000 units PO DAILY 30 days docusate sodium (Colace) 100 mg PO BID PRN multivitamin 1 tab PO DAILY naproxen 500 mg PO BID PRN 7 days testosterone 1 packet transdermal DAILY 30 days zolpidem (Ambien) 10 mg PO BEDTIME PRN HPI Comments Details: Ermias returns for follow-up regarding hypertension and ascending aortic aneurysm. In the past, he was on lisinopril but not in his list anymore. It seems that he did have high potassium in it was stopped. He was also on labetalol but not on that either. He states home blood pressures are somewhere in the 140 systolic range. Today, slightly lower. Couple of other recent blood pressures are in the 150s. Otherwise, no clear cardiac symptoms. [facility] Medical History (Updated 03/02/24 @ 13:54 by Giancarlo Leigh MD) HTN (hypertension) BPH (benign prostatic hyperplasia) Encounter to establish care Erectile dysfunction due to arterial insufficiency Fracture, thoracic vertebra, compression Lumbar degenerative disc disease Essential hypertension Ascending aortic aneurysm Annual physical exam Normal colonoscopy Prostate CA Allergic rhinitis Polycythemia Hyperlipidemia Hearing problem Insomnia Hypogonadism male Osteoporosis Surgical History Hx of transurethral resection of prostate Hx of cystoscopy History of esophagogastroduodenoscopy (EGD) Hx of appendectomy History of repair of hiatal hernia Hx of hernia repair History of colon resection Hx of nasal septoplasty Hx of colonoscopy Family History Father Alzheimer disease Colon cancer Colon polyps Mother No problems noted. Other Mental health disorder Social History Housing: House Alcohol intake: current Alcohol intake frequency: holidays/special occasions only Patient Tobacco Use Status: Former Tobacco user e-Cigarette/Vaping Use: Never Used Second Hand Smoke Exposure: No service: Yes Current occupational status: employed and retired Current occupational exposures/hazards: No Cognitive needs: No Hearing needs: Yes Vision needs: No Review of Systems Const Denies chills, Denies fatigue, Denies fever(s), Denies weight gain and Denies weight loss ENT Denies dizziness Card Denies chest pain, Denies leg edema, Denies lightheadedness, Denies palpitations, Denies dyspnea on exertion, Denies orthopnea and Denies other Resp Denies cough and Denies dyspnea on exertion GI Denies hematochezia and Denies change in stool character Musc Denies abnormal gait, Denies muscle weakness, Denies numbness, Denies radiating pain into limb and Denies tingling Neuro Denies abnormal gait, Denies dizziness, Denies numbness and Denies tingling Endo Denies fatigue and Denies palpitations Physical Exam Vital Signs: Last Vital Signs Pulse 82 03/02/24 13:41 BP 136/72 03/02/24 13:41 BMI result Body Mass Index 28.1 Const General: comfortable and no acute distress Orientation/consciousness: patient oriented x3 HEENT Other: Unremarkable Head: Yes normal to inspection Neck Neck: Yes normal visual inspection Chest Chest palpation & inspection: normal inspection of the chest Resp Auscultation: clear to auscultation bilaterally Cardio Palpation: normal PMI Heart sounds: S1 normal heart sound present, S2 normal heart sound present, no gallops, no murmurs and no rubs GI Palpation (GI): Soft to palpation Back/Spine/Pelvis Other: unremarkable Skin General skin exam: no rashes or lesions noted Neuro General: patient oriented x3 Extrem General: Yes normal to inspection Psych Mental Status: mental status grossly normal Office Procedures EKG Details: EKG with sinus rhythm at 82/Min; premature ventricular contraction versus supraventricular/aberrancy; [place]. [id number], Complete Assessment & Plan Assessment & Plan (1) Ascending aortic aneurysm: Code(s): I71.2 - Thoracic aortic aneurysm, without rupture Category: Medical Qualifiers: Presence of rupture: without rupture Qualified Code(s): I71.21 - Aneurysm of the ascending aorta, without rupture Plan: In the most recent echocardiogram, ascending aortic size 4.2 cm sinus of Valsalva and 4.1 cm in the tubular portion. No significant change compared to previous. Last myocardial perfusion imaging study from 2017 was normal. Prior to that, in 2013 was normal. We will follow this on echocardiograms. (2) Essential hypertension: Code(s): I10 - Essential (primary) hypertension Category: Medical Plan: For some reason, off labetalol. He is also off lisinopril due to high potassium. Only on amlodipine. Blood pressure slightly high and we can try Coreg rather. Plan Total time spent including review of data, counseling, documentation, coordination of care-31 minutes. Orders: Orders CA echo transthoracic complete 1 Year I71.21 - Aneurysm of the ascending aorta, without rupture Medications: New carvedilol (Coreg) must administer with a meal/food 6.25 mg PO BID 180 tabs 3RF 90 days Coding Level of Care Code Est Pt Level 4 (07194) Diagnoses Aneurysm of ascending aorta without rupture I71.21 Presence of rupture: without rupture Essential hypertension I10 CPT Codes EKG - CPT: 97370-[id number], Complete ([id number])
[2024-03-02 13:41] VITALS: BP 136/72; PULSE 82; BMI 28.1
== END 2024-03-02 14:12 | disposition home or self-care (01) ==
PROVIDERS: PCP Nurse Practitioner Primary Care; Visit Provider Internal Medicine
DX: I71.21 Aneurysm of the ascending aorta, without rupture (principal); I10 Essential (primary) hypertension
CPT/HCPCS: 93010; 99214

== ENCOUNTER → 2024-03-02 13:39 | Outpatient (BNVA) | payer OTHER, SELFPAY | PROVIDERS: PCP Nurse Practitioner Primary Care; Visit Provider Internal Medicine | DX: I71.21 Aneurysm of the ascending aorta, without rupture (principal); I10 Essential (primary) hypertension; Z79.899 Other long term (current) drug therapy | CPT/HCPCS: 93005 ==

== ENCOUNTER 2024-03-15 10:21 | Outpatient (REF) | payer OTHER, SELFPAY ==
[2024-03-15 14:27] LABS: Estimated Glomerular Filt Rate > 60
[2024-03-15 14:33] LABS: Prostate Specific Antigen 0.13 ng/mL (<0.05-4.0)
[2024-03-21 16:29] LABS: Testosterone, Total 557 ng/dL (250-1100)
== END 2024-03-15 10:22 | disposition home or self-care (01) ==
LOC: HO.HMGCLDS 10:21
PROVIDERS: Visit Provider Urology
DX: E29.1 Testicular hypofunction (principal); Z12.5 Encounter for screening for malignant neoplasm of prostate
CPT/HCPCS: 36415; 82565; 84153; 84403

== ENCOUNTER 2024-05-10 13:26 | Outpatient (AMB) | payer OTHER, SELFPAY ==
--- NOTE | 2024-05-10 13:27 | A.OFFVIS_ITS ---
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 He is a patient of Dr. Navarro. He is seen for the following urologic conditions - prostate cancer - erectile dysfunction - hypogonadism - nephrolithiasis - hematuria Six-month follow-up testosterone review - 03/09 T 557 P 0.13 Penile prosthetic functional however buckling occurring with female on top position. - inflation in office successful Hypogonadism with daily testosterone gel Episode of hematuria - happened previously a number of years ago Recommend check cystoscopy office Erectile dysfunction with penile prosthetic Nephrolithiasis minimal on left side Does have persistent back pain Has been on Fosamax previously for osteoporosis with vitamin-D 6 month follow-up PSA Prostate cancer - agent orange exposure external beam radiation 2014 Initial diagnosis 2014 Initial therapy radiation with hormones Previous mild hematuria responded to Proscar PSA - 09/06 0.14, 05/07 0.09, 03/07 0.1, 07/08 0.1, 03/08 485 <0.1 44, 09/09 925 0.12 Nocturia 2-3 times, daytime 3 hours - is slowly improving Hypogonadism Takes testosterone gel On Fosamax for osteoporosis with vitamin-D Laboratories - 11/04 testosterone 550, hematocrit 46.3, 05/07 T 357, 03/07 479, 09/09 925 Erectile dysfunction Persistent since radiation for prostate cancer Prior trial of oral tablets and vacuum pumps Failed maximum combination therapy with daily tadalafil and top up Was able to used corporal injections however did not reliably produce desired effect Penile prosthetic placed 08/07 Nephrolithiasis Imaging - 09/08 renal ultrasound bilateral cysts up to 3 cm, small stones left multiple 3 mm PFSH Medical History (Updated 05/10/24 @ 14:01 by Jd Ayers MD) HTN (hypertension) BPH (benign prostatic hyperplasia) Encounter to establish care Erectile dysfunction due to arterial insufficiency Fracture, thoracic vertebra, compression Lumbar degenerative disc disease Essential hypertension Ascending aortic aneurysm Annual physical exam Normal colonoscopy Prostate CA Allergic rhinitis Polycythemia Hyperlipidemia Hearing problem Insomnia Hypogonadism male Osteoporosis Surgical History Hx of transurethral resection of prostate Hx of cystoscopy History of esophagogastroduodenoscopy (EGD) Hx of appendectomy History of repair of hiatal hernia Hx of hernia repair History of colon resection Hx of nasal septoplasty Hx of colonoscopy Family History Father Alzheimer disease Colon cancer Colon polyps Mother No problems noted. Other Mental health disorder Social History Housing: House Alcohol intake: current Alcohol intake frequency: holidays/special occasions only Patient Tobacco Use Status: Former Tobacco user e-Cigarette/Vaping Use: Never Used Second Hand Smoke Exposure: No service: Yes Current occupational status: employed and retired Current occupational exposures/hazards: No Cognitive needs: No Hearing needs: Yes Vision needs: No Review of Systems Const Denies chills and Denies fever(s) Card Reports no additional complaints and Denies syncope Resp Denies cough GI Denies abdominal pain and Denies heartburn Reports as per HPI and Denies change in libido Neuro Denies syncope Psych Denies change in libido Endo Denies change in libido Physical Exam Const General: cooperative, healthy appearing, comfortable and no acute distress Orientation/consciousness: patient oriented x3 HEENT Face and sinus: Yes normal facial exam Mouth: moist mucous membranes Neck Neck: Yes normal visual inspection, Yes full ROM and Yes trachea midline Chest Chest palpation & inspection: normal inspection of the chest Resp Effort & Inspection: normal respiratory effort, able to speak in complete sentences and no respiratory distress GI Inspection: Yes normal to inspection Back/Spine/Pelvis Cervical Spine: normal cervical lordosis Thoracic/Lumbar Spine: thoracic and lumbar spine normal to inspection Skin General skin exam: no rashes or lesions noted Neuro General: patient oriented x3, gait normal, tone normal and moves all extremities Extrem General: Yes normal to inspection and Yes capillary refill normal Results AMB Urinalysis, Automated UA Leukoctes 0 Melissa/uL Last Edit by TANIA Smith on 05/10/24 13:46 UA Nitrite Negative Last Edit by Monica Snyder [facility] on 05/10/24 13:46 UA Urobilinogen 0.2 mg/dL Last Edit by Monica Snyder [facility] on 05/10/24 13:4 6 UA Protein 15 mg/dL Last Edit by Monica Snyder [facility] on 05/10/24 13:46 UA pH 6.0 Last Edit by Monica Snyder [facility] on 05/10/24 13:46 UA Blood 0 Yanick/uL Last Edit by Monica Snyder [facility] on 05/10/24 13:46 UA Specific [place] 1.020 Last Edit by Monica Snyder [facility] on 05/10/24 13: 46 UA Ketone Negative Last Edit by Monica Snyder [facility] on 05/10/24 13:46 UA Bilirubin 0 mg/dL Last Edit by Monica Snyder [facility] on 05/10/24 13:46 UA Glucose 0 mg/dL Last Edit by Monica Snyder [facility] on 05/10/24 13:46 Results Reviewed Results Reviewed: Laboratory Last Values Urine pH (Auto) 6.0 05/10/24 13:46 Specific [place] (Auto) 1.020 05/10/24 13:46 Urine Protein (Auto) 15 mg/dL 05/10/24 13:46 Glucose (UA)(Auto) 0 mg/dL 05/10/24 13:46 Urine Ketones (Auto) Negative 05/10/24 13:46 Urine Blood (Auto) 0 Yanick/uL 05/10/24 13:46 Urine Nitrite (Auto) Negative 05/10/24 13:46 Urine Bilirubin (Auto) 0 mg/dL 05/10/24 13:46 Urine Urobilinogen (Auto) 0.2 mg/dL 05/10/24 13:46 Leukocyte Esterase (Auto) 0 Melissa/uL 05/10/24 13:46 Assessment & Plan Assessment & Plan (1) Hypogonadism male: Code(s): E29.1 - Testicular hypofunction Category: Medical (2) Gross hematuria: Code(s): R31.0 - Gross hematuria Category: Medical Plan Office cystoscopy Orders: Orders AMB Urinalysis Automated Today Z13.9 - Encounter for screening, unspecified Medications: Refilled testosterone Apply to shoulder and rub in until dry 1 packet transdermal DAILY 30 days 150 grams 5RF E29.1 - Testicular hypofunction Patient Instructions: Imaging studies, laboratory and physical exam results were discussed and reviewed in detail. No major barriers to patient understanding were identified. An opportunity to ask questions regarding the treatment plan was provided. All questions were answered. The patient expressed understanding and agreement with the above treatment plan. The patient is aware they should contact our office by phone for worsening of their current condition or the appearance of new urologic symptoms. Compliance is encouraged with any medications and followup testing that is ordered. It is a privilege to participate in the urologic care of your patient. If you have any questions or concerns regarding treatment for the above conditions, or other urologic issues, please do not hesitate to contact me. The office telephone contact is [phone]. This note is constructed using voice recognition software. While every effort has been made to ensure accuracy day care center director errors may have been included. Yours sincerely, Dr Jd Ayers MD, [facility] - Urology Providers of Expert, Compassionate Care for the Genitourinary System Coding Level of Care Code Est Pt Level 3 (69690) Diagnoses Hypogonadism male E29.1 Gross hematuria R31.0
== END 2024-05-10 14:00 | disposition home or self-care (01) ==
PROVIDERS: PCP Nurse Practitioner Primary Care; Visit Provider Urology
DX: E29.1 Testicular hypofunction (principal); R31.0 Gross hematuria; Z13.9 Encounter for screening, unspecified
CPT/HCPCS: 99213

== ENCOUNTER → 2024-05-10 13:26 | Outpatient (BNVA) | payer OTHER, SELFPAY | PROVIDERS: PCP Nurse Practitioner Primary Care; Visit Provider Urology | DX: E29.1 Testicular hypofunction (principal); R31.0 Gross hematuria; N52.9 Male erectile dysfunction, unspecified | CPT/HCPCS: 81003 ==

== ENCOUNTER 2024-06-17 09:26 | Outpatient (AMB) | payer OTHER, SELFPAY ==
--- NOTE | 2024-06-17 09:39 | HO.SPINEOV ---
Intake Visit Reasons: thoracic pain/sciatica right side Intake Note: Mr. Birmingham is here today c/o bilateral sciatica pain. 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: No Allergies sulfamethoxazole [From Bactrim] Allergy (Verified 06/17/24 09:40) Mouth sores, Stomach pains trimethoprim [From Bactrim] Allergy (Verified 06/17/24 09:40) Mouth sores, Stomach pains Sulfa (Sulfonamide Antibiotics) Adverse Reaction (Intermediate, Verified 06/17/24 09:40) MOUTH SORES, RASH Assessment & Plan Assessment & Plan (1) Synovial cyst of lumbar facet joint: Code(s): M71.38 - Other bursal cyst, other site Category: Medical Plan This is a very nice 78-year-old gentleman who referred himself to the office today for evaluation of right-sided low back pain that radiates down into his hamstring with tingling and numbness of his right foot. He is a patient known to , and has undergone multiple procedures with the him. There is possibility of an upcoming spinal cord stimulator. The patient's problem started about 10 years ago, when he reports that he had a rather abrupt onset of pain that started in the right side of his low back and would radiate intensely down into his posterior thigh going into his calf and foot. He reports at that time that it was significantly worse than it is now, very disabling but over the course of a number of weeks eventually got to a point where was manageable and he could get up and move around. He plateaued basically to where he is now a few months after that initial event. There is currently pain in the right side of his low back radiating into his posterior hamstring. When this happens he will get tingling of his foot at times generally on the bottom of his foot. He gets up and moves around and walks in its significantly improved. Sitting is the position that makes him most uncomfortable. He has trouble lying down at night as well. He has to toss and turn because he also has some left-sided lower thoracic back pain as well. He takes ibuprofen once a day and that does seem to help. He went through physical therapy years ago. That really did not do much so he has discontinued it. 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 He is not bothered at all while he is doing this activity. But when he goes to sit in his truck afterwards the pain will start. He underwent a series of injections including of the facet joint I believe at L5-S1, attempted popping of the synovial cyst seen on his MRI of the right side at L5-S1. This did give him about a week or 2 of feeling like the intense pain was gone, and it was more like a muscle cramp which was very manageable. Unfortunately the symptoms came back. He is here today to follow-up to discuss whether there something we can do for him surgically. PMH: He had history of prostate cancer he was treated with XRT and hormones, afterwards was left with erectile dysfunction and ultimately was hypo androgenic and required a penile implant and testosterone supplementation through transdermal patch. He has regained erectile function, voids normally. History of high cholesterol, hypertension, hiatal hernia repair, colon resection for diverticulitis many years ago. Denies any problem with his heart, lungs, liver, kidneys, bleeding disorders etc.. Social hx: He does not smoke, he quit 40 years ago, does not drink use any recreational drugs Medications: Amlodipine, carvedilol, atorvastatin, testosterone patch, vitamin D3 Allergies: Please see the list Physical exam: He is awake alert oriented no acute distress, is able to stand walk around the room independently, strength and reflexes are normal, MEG testing and SI joint testing are negative. Imaging review: He is a lumbar MRI from April 2023 showing very modest degenerative disc disease. There is an MRI from about 6 or 7 years ago things look maybe slightly worse than they were at that time but not significantly so in terms of disc degeneration. He does have a synovial cyst that has developed in the interim over the course of those 6 or 7 years on the right side at the L5-S1 facet joint medial to it, does not appear to be displacing any nerves. He has left L5 foraminal stenosis. Impression: 78-year-old male who presents with a right-sided low back pain radiating down his posterior thigh with intermittent tingling on the bottom of his foot when he is sitting. If he is standing and walking he is absolutely fine. 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 While he is doing these activities he feels no pain. When he goes to sit in his truck the pain will return. He takes ibuprofen once a day. The only thing that seems to have had a meaningful impact has been the facet block that was done at L5-S1 on the right. At that time there was attempted popping of the synovial cyst but it sounds like it was unable to be done reliably. It sounds like the pain is coming from that facet joint. I do not understand why he does not have the pain when he is active. Nonetheless, I think we should repeat an MRI just to see if the cyst is still there and reassess the facet joint for further degeneration, or see if maybe it has gotten worse. It sounds like he might benefit from an RFA of the facet joint. The patient tells me that he was also in the process of considering getting a spinal cord stimulators well with Dr. Guerrero, but I am not sure if his insurance is approved it. I will see him back once the MRI is completed. Thank you for allowing us to care for your patient. The total time spent with this visit with this patient was 45 minutes reviewing history, physical exam, lumbar imaging review, and implementation of treatment plan or further diagnostic testing Mian Marsh MD,PhD [facility] Orders: Orders MR lumbar spine wo con Today M71.38 - Other bursal cyst, other site Coding Level of Care Code New Pt Level 4 (74779) Diagnoses Synovial cyst of lumbar facet joint M71.38
== END 2024-06-17 10:02 | disposition home or self-care (01) ==
PROVIDERS: PCP Nurse Practitioner Primary Care; Visit Provider Physician Assistant
DX: M71.38 Other bursal cyst, other site (principal)
CPT/HCPCS: 99204

== ENCOUNTER → 2024-06-17 09:26 | Outpatient (BNVA) | payer OTHER, SELFPAY | PROVIDERS: PCP Nurse Practitioner Primary Care; Visit Provider Physician Assistant ==

== ENCOUNTER 2024-06-30 10:06 | Outpatient (REF) | payer MEDICARE, SELFPAY | END 2024-06-30 10:07 | disposition home or self-care (01) | LOC: HO.MRI 10:06 | PROVIDERS: Visit Provider Physician Assistant | DX: M71.38 Other bursal cyst, other site (principal) | CPT/HCPCS: 72148 ==

== ENCOUNTER 2024-07-08 10:59 | Outpatient (AMB) | payer MEDICARE, SELFPAY ==
--- NOTE | 2024-07-08 11:27 | A.SPINEOV_ITS ---
Intake Visit Reasons: MRI follow up Intake Note: Mr. Birmingham is here today to discuss the results of his MRI. 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: No Allergies sulfamethoxazole [From Bactrim] Allergy (Verified 06/17/24 09:40) Mouth sores, Stomach pains trimethoprim [From Bactrim] Allergy (Verified 06/17/24 09:40) Mouth sores, Stomach pains Sulfa (Sulfonamide Antibiotics) Adverse Reaction (Intermediate, Verified 06/17/24 09:40) MOUTH SORES, RASH Assessment & Plan Assessment & Plan (1) Low back pain with right-sided sciatica: Code(s): M54.41 - Lumbago with sciatica, right side Category: Medical Qualifiers: Chronicity: chronic Back pain laterality: right Qualified Code(s): M54.41 - Lumbago with sciatica, right side; G89.29 - Other chronic pain Plan Mr Birmingham came back to review his MRI done at [place]. The synovial cyst on the L5-S1 facet joint appears to have resolved, I only see a very minor signs that it was there. Compared to the MRI from last year it significantly smaller and the shape of the thecal sac has resumed mostly its normal contours. Therefore, I do not think it was the source of his pain because despite it getting smaller or completely going away, his pain has not improved. The only nerve compression I see is on the left in the L5 foramen but he does not have left-sided leg pain. He was curious about the T11-12 disc interspace, there is a small what looks like Schmorl's node possibly. I did not think this is something that Dr. Marsh would offer him surgery for either. Unfortunately I do not think there is much we can do for him surgically here to help with his pain. I told him he should follow up with Dr. Guerrero. Total amount of time spent in this visit was 20 minutes in discussion of symptoms, lumbar imaging results and subsequent plan of care Mian Marsh MD,PhD [facility] Coding Level of Care Code Est Pt Level 3 (12945) Diagnoses Chronic right-sided low back pain with right-sided sciatica M54.41; G89.29 Chronicity: chronic Back pain laterality: right
== END 2024-07-08 11:33 | disposition home or self-care (01) ==
PROVIDERS: Visit Provider Physician Assistant
DX: M54.41 Lumbago with sciatica, right side (principal); G89.29 Other chronic pain
CPT/HCPCS: 99213

== ENCOUNTER 2024-07-08 10:59 | Outpatient (REF) | payer MEDICARE, OTHER, SELFPAY ==
[2024-07-08 16:25] LABS: Urine Cytology See Pathology rpt
== END 2024-07-08 11:00 | disposition home or self-care (01) ==
LOC: HO.LAB 10:59
PROVIDERS: Urology; Visit Provider Physician Assistant
DX: R31.0 Gross hematuria (principal); N30.41 Irradiation cystitis with hematuria; M54.41 Lumbago with sciatica, right side; G89.29 Other chronic pain
CPT/HCPCS: 52000; 81003; 88112; 99212

== ENCOUNTER 2024-07-08 14:45 | Outpatient (AMB) | payer MEDICARE, SELFPAY ==
--- NOTE | 2024-07-08 14:58 | A.OFFVIS_ITS ---
Intake Visit Reasons: cysto Intake Note: Patient is Present for Cystoscopy Urology Med: Testosterone Antibiotic Allergy: Sulfa, Trimethoprim Blood Thinner: None Patient reports that has been having current hematuria he can see the blood in his urine Patient reports that he has this in the past was evaluated by Dr Perez and was told that most likely was coming from his prostate not his bladder. Recent PSA: 06/14/24 0.14 URO- G Disposable Cystoscope lot: [id number] exp:11/25/2026 Mastic Sprayer Required: No Accompanied by: Self / Same As Patient Allergies sulfamethoxazole [From Bactrim] Allergy (Verified 06/17/24 09:40) Mouth sores, Stomach pains trimethoprim [From Bactrim] Allergy (Verified 06/17/24 09:40) Mouth sores, Stomach pains Sulfa (Sulfonamide Antibiotics) Adverse Reaction (Intermediate, Verified 06/17/24 09:40) MOUTH SORES, RASH HPI Comments Details: Ermias is a pleasant male. He is a patient of Dr. Navarro. 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 which would be consistent with intermittent hematuria Testosterone review - 03/09 T 557 P 0.13 Hypogonadism with daily testosterone gel Nephrolithiasis Nephrolithiasis minimal on left side Does have persistent back pain Has been on Fosamax previously for osteoporosis with vitamin-D Prostate cancer - agent orange exposure external beam radiation 2014 Initial diagnosis 2014 Initial therapy radiation with hormones Previous mild hematuria responded to Proscar PSA - 09/06 0.14, 05/07 0.09, 03/07 0.1, 07/08 0.1, 03/08 485 <0.1 44, 09/09 925 0.12, 03/09 0.13 Nocturia 2-3 times, daytime 3 hours - is slowly improving Hypogonadism Takes testosterone gel On Fosamax for osteoporosis with vitamin-D Laboratories - 11/04 testosterone 550, hematocrit 46.3, 05/07 T 357, 03/07 479, 09/09 925, 01/07 557 Erectile dysfunction Persistent since radiation for prostate cancer Prior trial of oral tablets and vacuum pumps Failed maximum combination therapy with daily tadalafil and top up Was able to used corporal injections however did not reliably produce desired effect Penile prosthetic placed 08/07 Nephrolithiasis Imaging - 09/08 renal ultrasound bilateral cysts up to 3 cm, small stones left multiple 3 mm Radiation cystitis intermittent hematuria PFSH Medical History (Updated 07/10/24 @ 20:42 by Jd Ayers MD) HTN (hypertension) BPH (benign prostatic hyperplasia) Encounter to establish care Erectile dysfunction due to arterial insufficiency Fracture, thoracic vertebra, compression Lumbar degenerative disc disease Essential hypertension Ascending aortic aneurysm Annual physical exam Normal colonoscopy Prostate CA Allergic rhinitis Polycythemia Hyperlipidemia Hearing problem Insomnia Hypogonadism male Osteoporosis Surgical History Hx of transurethral resection of prostate Hx of cystoscopy History of esophagogastroduodenoscopy (EGD) Hx of appendectomy History of repair of hiatal hernia Hx of hernia repair History of colon resection Hx of nasal septoplasty Hx of colonoscopy Family History Father Alzheimer disease Colon cancer Colon polyps Mother No problems noted. Other Mental health disorder Social History Housing: House Alcohol intake: current Alcohol intake frequency: holidays/special occasions only Patient Tobacco Use Status: Former Tobacco user e-Cigarette/Vaping Use: Never Used Second Hand Smoke Exposure: No service: Yes Current occupational status: employed and retired Current occupational exposures/hazards: No Cognitive needs: No Hearing needs: Yes Vision needs: No Review of Systems Const Denies chills and Denies fever(s) Card Reports no additional complaints and Denies syncope Resp Denies cough GI Denies abdominal pain and Denies heartburn Reports as per HPI and Denies change in libido Neuro Denies syncope Psych Denies change in libido Endo Denies change in libido Physical Exam Const General: cooperative, healthy appearing, comfortable and no acute distress Orientation/consciousness: patient oriented x3 HEENT Face and sinus: Yes normal facial exam Mouth: moist mucous membranes Neck Neck: Yes normal visual inspection, Yes full ROM and Yes trachea midline Chest Chest palpation & inspection: normal inspection of the chest Resp Effort & Inspection: normal respiratory effort, able to speak in complete sentences and no respiratory distress GI Inspection: Yes normal to inspection Back/Spine/Pelvis Cervical Spine: normal cervical lordosis Thoracic/Lumbar Spine: thoracic and lumbar spine normal to inspection Skin General skin exam: no rashes or lesions noted Neuro General: patient oriented x3, gait normal, tone normal and moves all extremities Extrem General: Yes normal to inspection and Yes capillary refill normal Office Procedures Cystoscopy Consent Discussed risk and benefit or proposed procedure with the patient. Information consent for procedure given to the patient. Discussed technical aspects, risks, benefits and alternatives in full. Addressed all of the patient's questions and concerns regarding the procedure. The patient demonstrated knowledge and understanding. They wish to proceed with this procedure. Preparation The patient was prepped in the usual manner. A computational biologist was present and in the room. Genitalia was prepped with betadine solution in a sterile manner. Lidocaine Jelly 2% was placed into the urethra and 16Fr flexible Olympus cystoscope was inserted into the meatus after adequate lubrication. Procedure Cystoscopy performed using a disposable Urovue digital 16 Mexican cystoscope. Meatus circumcised Urethra anterior posterior urethra normal Prostatic Urethra irritated mucosa from radiation Bladder examination with retroflexion of cystoscope Bladder Orifices normal shape and position Bladder Capacity normal Trabeculations grade 2 Cellule Formation Yes No Diverticulum Formation - Mucosal Erythema radiation cystitis around bladder neck with clear areas of neovascularity Bladder Tumor [id number]-[id number] DISPOSABLE SCOPE URO-G FLEXIBLE SCOPE Procedure code (CPT) selection complete Office Meds lidocaine HCl 2 % mucosal jelly in applicator Performing Provider: Jd Ayers MD Performing Location: [facility] Administered by: MIMI Freeman on 07/08/24 15:20 Dose Route Admin Location Dispensed Lot Number Expiration Date [facility] Videotape Sales Representative 10 mL intra-urethral 10 mL nitrofurantoin monohydrate/macrocrystals 100 mg capsule Performing Provider: Jd Ayers MD Performing Location: [facility] Administered by: MIMI Freeman on 07/08/24 15:20 Dose Route Admin Location Dispensed Lot Number Expiration Date [facility] Videotape Sales Representative 100 mg PO 1 cap naproxen 500 mg tablet Performing Provider: Jd Ayers MD Performing Location: [facility] Administered by: MIMI Freeman on 07/08/24 15:20 Dose Route Admin Location Dispensed Lot Number Expiration Date [facility] Videotape Sales Representative 500 mg PO 1 tab Results AMB Urinalysis, Automated UA Leukoctes 0 Melissa/uL Last Edit by Lucinda Chamberlain, RMA on 07/08/24 15:21 UA Nitrite Negative Last Edit by Lucinda Chamberlain, RMA on 07/08/24 15:21 UA Urobilinogen 0.2 mg/dL Last Edit by Lucinda Chamberlain, RMA on 07/08/24 15:2 1 UA Protein 15 mg/dL Last Edit by Lucinda Chamberlain, RMA on 07/08/24 15:21 UA pH 6.5 Last Edit by Lucinda Chamberlain, RMA on 07/08/24 15:21 UA Blood 25 Yanick/uL Last Edit by Lucinda Chamberlain, RMA on 07/08/24 15:21 UA Specific [place] 1.020 Last Edit by Lucinda Chamberlain, RMA on 07/08/24 15: 21 UA Ketone Negative Last Edit by Lucinda Chamberlain, RMA on 07/08/24 15:21 UA Bilirubin 0 mg/dL Last Edit by Lucinda Chamberlain, RMA on 07/08/24 15:21 UA Glucose 0 mg/dL Last Edit by Lucinda Chamberlain, RMA on 07/08/24 15:21 Results Reviewed Results Reviewed: Laboratory Last Values Urine pH (Auto) 6.5 07/08/24 15:08 Specific [place] (Auto) 1.020 07/08/24 15:08 Urine Protein (Auto) 15 mg/dL 07/08/24 15:08 Glucose (UA)(Auto) 0 mg/dL 07/08/24 15:08 Urine Ketones (Auto) Negative 07/08/24 15:08 Urine Blood (Auto) 25 Yanick/uL 07/08/24 15:08 Urine Nitrite (Auto) Negative 07/08/24 15:08 Urine Bilirubin (Auto) 0 mg/dL 07/08/24 15:08 Urine Urobilinogen (Auto) 0.2 mg/dL 07/08/24 15:08 Leukocyte Esterase (Auto) 0 Melissa/uL 07/08/24 15:08 Assessment & Plan Assessment & Plan (1) Radiation cystitis: Code(s): N30.40 - Irradiation cystitis without hematuria Category: Medical Plan radiation cystitis confirmed Orders: Orders Prostate Specific Antigen 4 Months E29.1 - Testicular hypofunction AMB Cystoscopy 07/08/24 R31.0 - Gross hematuria AMB Urinalysis Automated 07/08/24 Z13.9 - Encounter for screening, unspecified Urine Cytology 07/08/24 R31.0 - Gross hematuria Testosterone, Total 4 Months E29.1 - Testicular hypofunction Patient Instructions: Imaging studies, laboratory and physical exam results were discussed and reviewed in detail. No major barriers to patient understanding were identified. An opportunity to ask questions regarding the treatment plan was provided. All questions were answered. The patient expressed understanding and agreement with the above treatment plan. The patient is aware they should contact our office by phone for worsening of their current condition or the appearance of new urologic symptoms. Compliance is encouraged with any medications and followup testing that is ordered. It is a privilege to participate in the urologic care of your patient. If you have any questions or concerns regarding treatment for the above conditions, or other urologic issues, please do not hesitate to contact me. The office telephone contact is [phone]. This note is constructed using voice recognition software. While every effort has been made to ensure accuracy welfare director errors may have been included. Yours sincerely, Dr Jd Ayers MD, [facility] - Urology Providers of Expert, Compassionate Care for the Genitourinary System Coding Level of Care Code Est Pt Level 3 (19422) Diagnoses Radiation cystitis N30.40 CPT Codes Cystoscopy - CPT: 30174-[id number] ([id number])
== END 2024-07-08 16:10 | disposition home or self-care (01) ==
PROVIDERS: Visit Provider Urology
DX: N52.9 Male erectile dysfunction, unspecified (principal); N30.40 Irradiation cystitis without hematuria
CPT/HCPCS: 52000; 99213

== ENCOUNTER 2024-07-29 08:23 | Outpatient (AMB) | payer MEDICARE, SELFPAY ==
--- OUTSIDE RECORDS SUMMARY | 2024-07-29 08:27 | XMS_ITS ---
Author Organization [facility] Address [address] [place] [address] Care Team Providers Care Nursing Program Director Name Role Phone ZaidajocelynCesilia Landry Primary Care Provider Unav ailable Renato Joseph Unavailable [phone] RESULTS Component Value Reference Range Notes GI PANEL Reviewed date:05/03/2023 11:59:29 AM Interpretation: Performing Lab:[facility], [address] [place] [id number] Notes/Report: Campylobacter Not Detected Not Detect. Plesiomonas shigelloides Not Detected Not Detect. Salmonella Not Detected Not Detect. Vibrio Not Detected Not Detect. Vibrio Cholerae Not Detected Not Detect. Yersinia enterocolitica Not Detected Not Detect. E. coli EAEC Not Detected Not Detect. E. coli EPEC Not Detected Not Detect. E. coli ETEC Not Detected Not Detect. E. coli STEC Not Detected Not Detect. E. coli O157 Not applicable Not Detect. E. coli containing the O157 antigen are a subset of Shiga-like toxin-producing E. coli (STEC). Shigella sp./EIEC Not Detected Not Detect. Cryptosporidium Not Detected Not Detect. Cyclospora cayetanensis Not Detected Not Detect. Entamoeba histolytica Not Detected Not Detect. Giardia lamblia Not Detected Not Detect. Adenovirus F 40/41 Not Detected Not Detect. Astrovirus Not Detected Not Detect. Norovirus GI/GII Not Detected Not Detect. Rotavirus A Not Detected Not Detect. Sapovirus Not Detected Not Detect. All results must be correlated with clinical findings. Negative results do not exclude the possibility of gastrointestinal infection and should not be used as the sole basis for diagnosis, treatment, or other management decisions. Virus, bacteria, and parasite nucleic acid may persist in vivo independently of organism viability. Additionally, some organisms may be carried symptomatically. Detection of organism targets does not imply that the corresponding organisms are infectious or are the causative agents for clinical symptoms. There is a risk of false negative values due to the presence of sequence variants in the gene targets of the assay, amplification inhibitors in specimens, or inadequate numbers of organisms for amplification. The identification of several diarrheagenic E. coli pathotypes has historically relied upon phenotypic characteristics. This panel targets genetic determinants characteristic of most pathogenic strains, but may not detect all strains having phenotypic characteristics of a pathotype. The performance of this test has not been established for monitoring treatment of infection with any of the panel organisms. This assay is performed by Multiplexed PCR, utilizing the Indelsul Array. REASON FOR VISIT c-diff PROBLEMS Problem Type ICD Code Onset Dates Problem Status W/U Status Risk SNOMED Code Notes Problem Diarrhea, unspecified type (R19.7) Active confirmed [id number] Encounters Encounter Location Date Provider Diagnosis [facility] [address] [place] [address] 04/30/2023 Renato Joseph Diarrhea, unspecifie d type R19.7 ASSESSMENTS Encounter Date Diagnosis Assessment Notes Treatment Notes Treatment Clinical Notes 04/30/2023 Diarrhea, unspecified type (ICD-10 - R19.7) PLAN OF TREATMENT Pending Test Test Name Order Date STOOL WBC 04/30/2023 C DIFFICILE RFLX PCR 04/30/2023
--- OUTSIDE RECORDS SUMMARY | 2024-07-29 08:27 | XMS_ITS | Patient Health Record ---
Author Organization [facility] Address [address] [place] [address] Care Team Providers Care Medical Underwriter Name Role Phone Cesilia Anguiano Primary Care Provider Unav ailRenato Moss Unavailable [phone] ALLERGIES Allergen (clinical drug ingredient) Drug/Non Drug Allergy documented on EMR Reaction Allergy Type Onset Date Status erythromycin Erythromycin Unknown Drug Allergy A ctive Sulfa MOUTH SORES/RASH Drug Allergy Active sulfamethoxazole / trimethoprim Bactrim Unknown Drug Allergy Active amoxicillin / clavulanate Augmentin Unknown Drug Allergy Active REASON FOR REFERRAL No Information MEDICATIONS Medication SIG (Take, Route, Frequency, Duration) Notes Start Date End Date Status Dicyclomine HCl 10 MG 1-2 capsules Orall y Four times a day prn abdominal bloating/discomfort/cramps for 30 day(s) 01/08/2016 Active Lisinopril 5 MG 1 ANS HALF tablet Or ally Once a day Active Zolpidem Tartrate Ac tive Edex Active Alendronate Sodium 70 MG Oral for 28 Active Calcium Citrate Acti ve Labetalol HCl 200 MG 1 tablet Orally Twice a day Active Simvastatin 20 MG 1 tablet in the even ing Orally Once a day Active Testosterone Active Vitamin E Active Vitamin D3 Active Multivitamin Active IMMUNIZATIONS Vaccine Route Administration Date Status Comme nts Influenza Unknown 12/03/2021 Refused SOCIAL HISTORY Sex Assigned At : Social History Observation Description Sex Assigned At Unknown PROBLEMS Problem Type ICD Code Onset Dates Problem Status W/U Status Risk SNOMED Code Notes Problem Encounter for screening for malignant neoplasm of colon (Z12.11) Active confirmed 024401479 Problem History of adenomatous polyp of colon (Z86.010) Active confirmed 078193157 Problem Irritable bowel syndrome without diarrhea (K58.9) Active confirmed 20909863 Problem Diverticulosis (K57.90) Active confirmed 481818233 Problem Preprocedural examination (Z01.818) Active confirmed [id number] Problem History of colon polyps (Z86.010) Active confirmed History of polyp of colon (608180209) Problem Family history of colon cancer (Z80.0) Active confirmed 487181983 Problem Change in bowel function (R19.4) Active confirmed 40904921 Problem Diarrhea, unspecified type (R19.7) Active confirmed 15652533 Problem Diverticulosis of colon (K57.30) Active confirmed Diverticulosi s of colon (485293197) Problem LLQ abdominal pain (R10.32) Active confirmed 717603496 PLAN OF TREATMENT Pending Test Test Name Order Date BUN 12/29/2022 LIVER PROFILE 12/29/2022 CRP 12/29/2022 CBC w DIFF 12/29/2022 SED RATE (ESR) 12/29/2022 URINALYSIS + MICROSCOPIC 12/29/2022 CT ABD & PELVIS WITH CONTRAST 12/29/2022 STOOL WBC 04/30/2023 C DIFFICILE RFLX PCR 04/30/2023 Future Test Test Name Order Date COLONOSCOPY 01/08/2016 UPPER GI ENDOSCOPY 12/17/2016 COLONOSCOPY 12/03/2021 Insurance Providers Payer Name Payer Address Payer Phone Subscriber Number Group Number Insured Name Patient Relationship to Insured Coverage Start Date Coverage End Date [facility] [address] [place] [phone] [id number] HANH COELHO Self - patient is the insured MEDICAL (GENERAL) HISTORY Medical History History ICD Code HTN Denies MT,DM,CVA,renal disease Diverticulitis with surgery as below Hyperlipidemia BPH Neg colonoscopy with Dr. Nain taylor in 05/2012--previous polyps removed at the [facility] EGD's in [place] prior to the [facility] CT in 05/2013 and 11/2015 fercho wed only diverticulosis and renal cysts--he has also had negative abdominal ultrasound and MRIs ? of [facility]---sees Dr. Gallagher-had phleb otomy--presently inactive Prostate cancer--finished XRT in 09/2015 Pleural effusion on the left -2014--saw Dr. Worthy at [facility]--had CT scans and a thoracentesis--no cancer--being followed Negative colonoscopy in March of 2016 Kidney stones EGD in 2016 was normal except for minima l gastritis-bx neg for Hpylori Surgical History Surgery Date(Month/Year) Hiatal hernia repair by Dr. Cartagena 2008 Appendectomy Sigmoid diverticulitis with lap. resecti on by Dr. Cartagena 2006 Laser prostate surgery for BPH with Dr. Rashaad FLEMING 07/27/2013
--- OUTSIDE RECORDS SUMMARY | 2024-07-29 08:28 | XMS_ITS | Continuity of Care Document ---
Author Name [facility] Organization [facility] Care Team Providers Care Weather Teacher Name Role Phone [facility] Unavailable Unavailable Problems Combined list of problems from Department of Defense and Veterans Affairs facilities. It does not include entries that were removed or entered in error. Problem Status Onset Date Problem Type Date of Resolution Comments Source Screening for Malignant Neoplasms of colon Active 012 Condition Jun 14, 2012 Entered By: RADHA MORENO Comment: No polyps or inflammatory mucosal changesJun 14, 2012 Entered By: RADHA MORENO Comment: Minimal scattered diverticulosis throughout the entire colonJun 14, 2012 Entered By: RADHA MORENO Comment: FU in 10 years if asymptomatic - 2021 [facility] Allergic rhinitis * (ICD-9-CM 477.9) Active Condition [facility] Benign essential hypertension (SNOMED CT 7711766) Active Condition [facility] Bloating (ICD-9-CM 787.3) Active Condition [facility] CALCULUS OF KIDNEY Active Condition [facility] Cancer of prostate Active Condition [facility] Chronic sinusitis (ICD-9-CM 473.9) Active Condition Dec 03 0 Entered By: RADHA MORENO Comment: septoplasty 05/25 DR Ramirez. Now on IT same start date. [facility] Deviated nasal septum (ICD-9-CM 470.) Active Condition [facility] DIAPHRAGMATIC HERNIA Active Condition [facility] Diverticulitis, Colonic * (ICD-9-CM 562.11) Active Condition Dec 03 10 Entered By: RADHA MORENO Comment: Colectomy @ [facility] about 2004.Aug 22, 2010 Entered By: RADHA MORENO Comment: His father had colon cancer. [facility] Exposure to potentially hazardous substance Active Condition Oct 14, 2023 Entered By: ANALY SOW Comment: Connect Snomed Code to ICD 10 Code refer to note dated 07/20/23 [facility] former smoker Active Condition [facility] GERD * (ICD-9-CM 530.81) Active Condition [facility] Hearing loss * (ICD-9-CM 389.9) Active Condition [facility] Herpes Genitalis Active Condition Feb 11, 2002 Entered By: PAIGE CAMACHO Comment: h/o genital herpes -- no recurrence in several years (activeFeb 11, 2002 Entered By: PAIGE CAMACHO Comment: from 1979 - 1984) [facility] History of implantation of penile prosthesis Active Condition [facility] Hyperlipidemia * (ICD-9-CM 272.4) Active Condition [facility] Hypertrophy (Benign) of Prostate without Urinary obstruction Active Condition Aug 26, 2012 Entered By: RADHA MORENO Comment: TUR 10/2101 Dr Stephens at [facility]. [facility] Hypogonadism Active Condition [facility] Impaired FASTING Glucose (ICD-9-CM 790.21) Active Condition [facility] Insomnia * (ICD-9-CM 780.52) Active Condition [facility] Sciatica Active Condition [facility] Thoracic aortic aneurysm without rupture Active Condition Jun 14, 2024 Entered By: RADHA MORENO Comment: Followed by [facility]. [facility] Tinnitus * (ICD-9-CM 388.30) Active Condition [facility] TINNITUS NOS Active Condition [facility] H. Pylori therapy 1997 Inactive Condition 07/11/2013 [facility] Hiatal Hernia Inactive Condition 01/13/2012 December 162011 Entered By: RADHA MORENO Comment: lap surgery about 2005 was curative. 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 [facility] MARYEfren [facility] Diagnosis: ICD-10-CM 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, left eye, mild stage Active Diagnosis [facility] MARYEfren [facility] Diagnosis: ICD-10-CM Z46.0 Encounter for fit/adjst of spectacles and contact lenses Active Diagnosis [facility] Diagnosis: ICD-10-CM 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 Medication Details Route Status Patient Instructions Prescription Expires Prescription Number Last Dispense Date Ordering Provider Order Date Order Qty Source ALBUTEROL 90MCG/ACTUA T (CFC-F) INHL,ORAL,8 .5GM DOSE COUNTER INHALE 1 PUFF BY MOUTH TWICE DAILY NEEDED FOR BRONCHOS PASM PREVENTI ON RESPIR ATORY (INHAL ATION) ACTIVE 11/17/2024 [id number] APOORVA MORENO 2023 1 [facility] AMLODIPINE BESYLATE 10MG TAB TAKE ONE TABLET BY MOUTH ONCE DAILY FOR BLOOD PRESSURE /HEART, DO NOT TAKE WITH GRAPEFRU IT JUICE ORAL ACTIVE 06/22/2025 [id number] 4 APOORVA MORENO 2023 90 [facility] AMLODIPINE BESYLATE 10MG TAB TAKE ONE TABLET BY MOUTH ONCE DAILY FOR BLOOD PRESSURE /HEART, DO NOT TAKE WITH GRAPEFRU IT JUICE ORAL DISCONT INUED (EDIT) 02/19/2025 [id number] 4 APOORVA MORENO 2023 30 [facility] AMLODIPINE BESYLATE 10MG TAB TAKE ONE TABLET BY MOUTH ONCE DAILY FOR BLOOD PRESSURE /HEART, DO NOT TAKE WITH GRAPEFRU IT JUICE ORAL DISCONT INUED (EDIT) 07/20/2024 [id number] 4 APOORVA MORENO 2022 30 [facility] AMLODIPINE BESYLATE 2.5MG TAB TAKE THREE TABLETS BY MOUTH ONCE DAILY FOR BLOOD PRESSURE /HEART, DO NOT TAKE WITH GRAPEFRU IT JUICE ORAL DISCONT INUED (EDIT) 11/17/2024 [id number] 4 APOORVA MORENO 2023 90 [facility] AMLODIPINE BESYLATE 5MG TAB TAKE ONE TABLET BY MOUTH ONCE DAILY FOR BLOOD PRESSURE /HEART, DO NOT TAKE WITH GRAPEFRU IT JUICE ORAL DISCONT INUED (EDIT) 11/05/2023 [id number] APOORVA MORENO 2022 30 [facility] ASPIRIN 81MG TAB,EC TAKE ONE TABLET BY MOUTH DAILY ORAL ACTIVE APOORVA MORENO 2013 [facility] ATORVASTATI N CA 40MG TAB TAKE ONE-HALF TABLET BY MOUTH ONCE DAILY FOR CHOLESTE ROL REPLACES SIMVASTA TIN. ORAL SUSPEND ED 02/19/2025 [id number] 5 APOORVA MORENO 2023 45 [facility] ATORVASTATI N CA 40MG TAB TAKE ONE-HALF TABLET BY MOUTH ONCE DAILY FOR CHOLESTE ROL REPLACES SIMVASTA TIN. ORAL DISCONT INUED 07/20/2024 [id number] APOORVA MORENO 2022 45 [facility] ATORVASTATI N CA 40MG TAB TAKE ONE-HALF TABLET BY MOUTH ONCE DAILY FOR CHOLESTE ROL REPLACES SIMVASTA TIN. ORAL DISCONT INUED (EDIT) 11/05/2023 [id number] 3 APOORVA MORENO 2022 15 [facility] CARVEDILOL 12.5MG TAB TAKE ONE TABLET BY MOUTH TWICE DAILY FOR HIGH BLOOD PRESSURE ORAL ACTIVE 06/22/2025 [id number] 4 APOORVA MORENO 2023 180 [facility] DICLOFENAC NA 1% GEL,TOP APPLY 4 GRAMS TOPICALL Y THREE TIMES DAILY NEEDED FOR OSTEOART HRITIS - USE DOSING CARD PROVIDED IN BOX TOPICSamaria Cota 01/14/2024 [id number] 4 RAOUL HOPKINS 2023 300 [facility] LATANOPROST 0.005% SOLN,OPH INSTILL 1 DROP INTO THE LEFT EYE AT BEDTIME TO REDUCE PRESSURE IN THE EYE OPHTHA LMIC ACTIVE 05/05/2025 [id number] 4 Samaria ESTRADA NDREW E 2023 7.5 [facility] LATANOPROST 0.005% SOLN,OPH INSTILL 1 DROP INTO THE LEFT EYE AT BEDTIME TO REDUCE PRESSURE IN THE EYE OPHTHA LMIC DISCONT INUED 02/14/2024 [id number] 4 Samaria ESTRADA NDREW E 2022 5 [facility] TESTOSTERON E (EQV-ANDROG EL) 1% 5GM/PKT GEL,TOP APPLY 1 PACKET TOPICALL Y ONCE DAILY TO SHOULDER . RUB IN UNTIL DRY, THEN WASH HANDS WITH SOAP AND WATER GRISELDAA L ACTIVE 12/22/2024 [id number] 4 JOSE DE JESUSAPOORVA HORAN 2023 30 [facility] TESTOSTERON E (EQV-ANDROG EL) 1% 5GM/PKT GEL,TOP APPLY 1 PACKET TOPICALL Y ONCE DAILY TO SHOULDER . RUB IN UNTIL DRY, THEN WASH HANDS WITH SOAP AND WATER TOPICA L DISCONT INUED 03/20/2024 [id number] SUSI ALBERTO MD 2023 30 [facility] TESTOSTERON E (EQV-ANDROG EL) 1% 5GM/PKT GEL,TOP APPLY 1 PACKET TOPICALL Y ONCE DAILY TO SHOULDER . RUB IN UNTIL DRY, THEN WASH HANDS WITH SOAP AND WATER TOPICA L 08/28/2023 [id number] SUSI ALBERTO MD 2022 30 [place] ZOLPIDEM TARTRATE 10MG TAB TAKE ONE TABLET BY MOUTH AT BEDTIME FOR SLEEP ORAL ACTIVE 11/05/2024 [id number] APOORVA MORENO 2023 30 [facility] [place] ZOLPIDEM TARTRATE 10MG TAB TAKE ONE TABLET BY MOUTH AT BEDTIME NEEDED FOR SLEEP ORAL DISCONT INUED 11/11/2023 [id number] 4 APOORVA MORENO 2022 30 [facility] ZOLPIDEM TARTRATE 10MG TAB TAKE ONE TABLET BY MOUTH AT BEDTIME FOR SLEEP ORAL 04/22/2024 [id number] APOORVA MORENO 2023 30 [facility] [place] [facility] Allergies, Adverse Reactions, Alerts Combined list of allergies from Department of Defense and Veterans Affairs facilities. It does not include entries that were removed or entered in error. Substance Category Reaction Severity Reaction type Status Date Reported Comments Source AUGMENTIN Propensity to adverse reactions to drug (finding) Abdominal pain active 1 [facility] SULFONAMIDE/ RELATED ANTIMICROBIA LS Propensity to adverse reactions to drug (finding) HIVES active 8 [facility] Immunizations Combined list of available immunizations from the Department of Defense and Veterans Affairs facilities. Immunization Series Date Given Administered By Site Reaction Lot Number CVX Code Drug Integration Aide Status Comments Source COVID-19 (MODERNA), MRNA, LNP-S, PF, 50 MCG/0.5 ML (AGES 12+ YEARS) 2023 CLARA JULIO LEFT DELTO ID [id number] 312 complet ed [facility] INFLUENZA, HIGH-DOSE, TRIVALENT, PF 2023 CLARA JULIO LEFT DELTO ID [id number] 135 complet ed [facility] INFLUENZA, HIGH-DOSE, QUADRIVALENT 2022 CHERYCHARLY RAZO E LEFT DELTO ID [id number] 197 complet ed [facility] COVID-19 (MODERNA), MRNA, LNP-S, PF, 50 MCG/0.5 ML (AGES 12+ YEARS) 4 2022 LEFT DELTO ID 312 complet ed [employer] Lot#: [id number] Mfr: MODERNA [email or web address] [facility] INFLUENZA VACCINE, QUADRIVALENT, ADJUVANTED 2021 205 complet ed [facility] COVID-19 (MODERNA), MRNA, LNP-S, PF, 100 MCG/0.5ML DOSE OR 50 MCG/0.25ML DOSE 3 2020 207 complet ed [facility] COVID-19 (MODERNA), MRNA, LNP-S, PF, 100 MCG/0.5 ML DOSE 2 2020 207 complet ed [facility] COVID-19 (MODERNA), MRNA, LNP-S, PF, 100 MCG/0.5 ML DOSE 1 2020 207 complet ed [facility] INFLUENZA, INJECTABLE, QUADRIVALENT, PRESERVATIVE FREE 2019 150 complet ed [facility] INFLUENZA, INJECTABLE, QUADRIVALENT, PRESERVATIVE FREE 2018 150 complet ed Site: Left Deltoid [facility] ZOSTER RECOMBINANT 2 2018 187 complet ed [facility] INFLUENZA, INJECTABLE, QUADRIVALENT 2018 158 complet ed Site: Left Deltoid [facility] ZOSTER RECOMBINANT 1 2018 187 complet ed [facility] FLU,3 YRS (HISTORICAL) 2016 88 complet ed Site: Left Deltoid [facility] PNEUMOCOCCAL CONJUGATE PCV 13 2016 133 complet ed [facility] ZOSTER (SHINGLES) (HISTORICAL) 2016 121 complet ed Proximal Left Arm [facility] FLU,3 YRS (HISTORICAL) 2015 88 complet ed Site: Left Deltoid [facility] TD(ADULT) UNSPECIFIED FORMULATION 2014 139 complet ed [facility] ED. Probably TD. after a dogbite. Our 2010 TDaP here shoulder suffice for life. [facility] FLU,3 YRS (HISTORICAL) 2013 88 complet ed Site: Left Deltoid [facility] PNEUMOCOCCAL POLYSACCHARID E PPV23 2013 33 complet ed [facility] FLU,3 YRS (HISTORICAL) 2012 88 complet ed Site: Left Deltoid [facility] FLU,3 YRS (HISTORICAL) 2012 88 complet ed Site: Left Deltoid [facility] FLU,3 YRS (HISTORICAL) 2012 88 complet ed [facility] DTAP, UNSPECIFIED FORMULATION 2010 107 complet ed Site: Left Deltoid [facility] Results Combined list of recent chemistry, hematology and other laboratory results from Department of Defense and Veterans Affairs, ranging from 15 months to all on record, depending upon the facility. Order Name Results Value Reference Range Date Interpretation Specimen Comments Source LIPID PANEL FASTING CHOLESTEROL [MASS/VOLUM E] IN SERUM OR PLASMA 166 mg/dL 06/14 Specimen Type: SERUM No comment entered. Ordering Provider: Jimena MORENO Report Released Date/Time: Jun 08, 2024 11:04 AM Reporting Lab: [facility] [facility] [address] [address] Performing Lab: [facility] [place] [facility] [address] [address] [facility] LIPID PANEL FASTING TRIGLYCERID E [MASS/VOLUM E] IN SERUM OR PLASMA 71 mg/dL 0 - 150 06/14 Specimen Type: SERUM No comment entered. Ordering Provider: Jimena MORENO Report Released Date/Time: Jun 08, 2024 11:04 AM Reporting Lab: [facility] [place] [facility] [address] [address] Performing Lab: [facility] [place] [facility] [address] [facility] [address] [facility] [place] [facility] LIPID PANEL FASTING CHOLESTEROL IN LDL [MASS/VOLUM E] IN SERUM OR PLASMA BY CALCULATION 95 mg/dL 0 - 129 06/14 Specimen Type: SERUM No comment entered. Ordering Provider: Jimena MORENO Report Released Date/Time: Jun 08, 2024 11:04 AM Reporting Lab: [facility] [place] [facility] [address] [address] Performing Lab: [facility] [place] [facility] [address] [facility] [address] [facility] [place] [facility] LIPID PANEL FASTING CHOLESTEROL .TOTAL/CHOL ESTEROL IN HDL [MASS RATIO] IN SERUM OR PLASMA 2.9 06/14 Specimen Type: SERUM No comment entered. Ordering Provider: Jimena MORENO Report Released Date/Time: Jun 08, 2024 11:04 AM Reporting Lab: [facility] [place] [facility] [address] [address] Performing Lab: [facility] [place] [facility] [address] [facility] [address] [facility] [place] [facility] LIPID PANEL FASTING CHOLESTEROL IN HDL [MASS/VOLUM E] IN SERUM OR PLASMA 57 mg/dL 40 - 60 06/14 Specimen Type: SERUM No comment entered. Ordering Provider: Jimena MORENO Report Released Date/Time: Jun 08, 2024 11:04 AM Reporting Lab: [facility] [place] [facility] [address] [address] Performing Lab: [facility] [place] [facility] [address] [address] [facility] LIVER FUNCTION PROTEIN [MASS/VOLUM E] IN SERUM OR PLASMA 6.8 g/dL 6.0 - 8.3 06/14 Specimen Type: SERUM No comment entered. Ordering Provider: Jimena MORENO Report Released Date/Time: Jun 08, 2024 11:04 AM Reporting Lab: [facility] [place] [facility] [address] [address] Performing Lab: [facility] [place] [facility] [address] [address] [facility] [place] [facility] LIVER FUNCTION ALBUMIN [MASS/VOLUM E] IN SERUM OR PLASMA 4.0 g/dL 3.5 - 5.0 06/14 Specimen Type: SERUM No comment entered. Ordering Provider: Jimena MORENO Report Released Date/Time: Jun 08, 2024 11:04 AM Reporting Lab: [facility] [place] [facility] [address] [address] Performing Lab: [facility] [place] [facility] [address] [address] [facility] [facility] LIVER FUNCTION ALKALINE PHOSPHATASE [ENZYMATIC ACTIVITY/VO LUME] IN SERUM OR PLASMA 63 U/L 40 - 150 06/14 Specimen Type: SERUM No comment entered. Ordering Provider: Jimena MORENO Report Released Date/Time: Jun 08, 2024 11:04 AM Reporting Lab: [facility] [place] [facility] [address] [facility] [address] Performing Lab: [facility] [place] [facility] [address] [address] [facility] [facility] LIVER FUNCTION ASPARTATE AMINOTRANSF ERASE [ENZYMATIC ACTIVITY/VO LUME] IN SERUM OR PLASMA 18 U/L 5 - 34 06/14 Specimen Type: SERUM No comment entered. Ordering Provider: Jimena MORENO Report Released Date/Time: Jun 08, 2024 11:04 AM Reporting Lab: [facility] [place] [facility] [address] [facility] [address] Performing Lab: [facility] [place] [facility] [address] [address] [facility] [facility] LIVER FUNCTION ALANINE AMINOTRANSF ERASE [ENZYMATIC ACTIVITY/VO LUME] IN SERUM OR PLASMA 30 U/L 06/14 Specimen Type: SERUM No comment entered. Ordering Provider: Jimena MORENO Report Released Date/Time: Jun 08, 2024 11:04 AM Reporting Lab: [facility] [place] [address] [address] Performing Lab: [facility] [place] [address] [address] [facility] LIVER FUNCTION BILIRUBIN.T OTAL [MASS/VOLUM E] IN SERUM OR PLASMA 0.8 mg/dL 0.2 - 1.2 06/14 Specimen Type: SERUM No comment entered. Ordering Provider: Jimena MORENO Report Released Date/Time: Jun 08, 2024 11:04 AM Reporting Lab: [facility] [place] [address] [address] Performing Lab: [facility] [place] [facility] [address] [facility] [address] [facility] [place] [facility] BASIC METABOLIC PANEL (fasting) UREA NITROGEN [MASS/VOLUM E] IN SERUM OR PLASMA 21 mg/dL 7 - 25 06/14 Specimen Type: SERUM No comment entered. Ordering Provider: Jimena MORENO Report Released Date/Time: Jun 08, 2024 11:04 AM Reporting Lab: [facility] [place] [address] [address] Performing Lab: [facility] [place] [facility] [address] [facility] [address] [facility] BASIC METABOLIC PANEL (fasting) GLUCOSE [MASS/VOLUM E] IN SERUM OR PLASMA 105 mg/dL 65 - 100 06/14 H Specimen Type: SERUM No comment entered. Ordering Provider: Jimena MORENO Report Released Date/Time: Jun 08, 2024 11:04 AM Reporting Lab: [facility] [address] [facility] [address] Performing Lab: [facility] [address] [address] [facility] BASIC METABOLIC PANEL (fasting) SODIUM [MOLES/VOLU ME] IN SERUM OR PLASMA 138 mmol/L 135 - 145 06/14 Specimen Type: SERUM No comment entered. Ordering Provider: Jimena MORENO Report Released Date/Time: Jun 08, 2024 11:04 AM Reporting Lab: [facility] [place] [place] [facility] [address] [facility] [address] Performing Lab: [facility] [address] [address] [facility]PITALTRN [facility] BASIC METABOLIC PANEL (fasting) POTASSIUM [MOLES/VOLU ME] IN SERUM OR PLASMA 4.2 mmol/L 3.5 - 5.0 06/14 Specimen Type: SERUM No comment entered. Ordering Provider: Jimena MORENO Report Released Date/Time: Jun 08, 2024 11:04 AM Reporting Lab: [facility] [place] [facility] [address] [address] Performing Lab: [facility] [place] [facility] [address] [facility] [address] [facility] TRN [facility] BASIC METABOLIC PANEL (fasting) CHLORIDE [MOLES/VOLU ME] IN SERUM OR PLASMA 107 mmol/L 100 - 110 06/14 Specimen Type: SERUM No comment entered. Ordering Provider: Jimena MORENO Report Released Date/Time: Jun 08, 2024 11:04 AM Reporting Lab: [facility] [place] [facility] [address] [facility] [address] Performing Lab: [facility] [place] [place] [facility] [address] [address] [facility] [place] [facility] BASIC METABOLIC PANEL (fasting) CARBON DIOXIDE, TOTAL [MOLES/VOLU ME] IN SERUM OR PLASMA 22 meq/L 20 - 30 06/14 Specimen Type: SERUM No comment entered. Ordering Provider: Jimena MORENO Report Released Date/Time: Jun 08, 2024 11:04 AM Reporting Lab: [facility] [address] [facility] [address] Performing Lab: [facility] [address] [address] [facility]ERRUN[facility] W[facility] HOSPITALTRN [facility] BASIC METABOLIC PANEL (fasting) CREATININE [MASS/VOLUM E] IN SERUM OR PLASMA 0.74 mg/dL 0.50 - 1.40 06/14 Specimen Type: SERUM No comment entered. Ordering Provider: Jimena MORENO Report Released Date/Time: Jun 08, 2024 11:04 AM Reporting Lab: [facility] [address] [address] Performing Lab: [facility] [address] [facility] [place] DIV[facility] BASIC METABOLIC PANEL (fasting) GLOMERULAR FILTRATION RATE/1.73 SQ M.PREDICTED [VOLUME RATE/AREA] IN SERUM, PLASMA OR BLOOD BY CREATININE- BASED FORMULA (CKD-EPI 2020) >90mL/ min 60 06/14 Specimen Type: SERUM No comment entered. Ordering Provider: Jimena MORENO Report Released Date/Time: Jun 08, 2024 11:04 AM Reporting Lab: [facility] [place] [facility] [address] [facility] [address] Performing Lab: [facility] [address] [facility] [place] [facility] PSA PROSTATE SPECIFIC AG [MASS/VOLUM E] IN SERUM OR PLASMA 0.14 ng/mL 0.00 - 4.00 02/15 Specimen Type: SERUM No comment entered. Ordering Provider: Jimena MORENO Report Released Date/Time: Nov 17, 2023 11:49 AM Reporting Lab: [facility] [place] [address] [address] Performing Lab: [facility] [place] [address] [address] [facility] LIVER FUNCTION PROTEIN [MASS/VOLUM E] IN SERUM OR PLASMA 6.8 g/dL 6.0 - 8.3 02/15 Specimen Type: SERUM No comment entered. Ordering Provider: Jimena MORENO Report Released Date/Time: Nov 17, 2023 11:49 AM Reporting Lab: [facility] [place] [address] [address] Performing Lab: [facility] [place] [address] [address] [facility] LIVER FUNCTION ALBUMIN [MASS/VOLUM E] IN SERUM OR PLASMA 4.2 g/dL 3.5 - 5.0 02/15 Specimen Type: SERUM No comment entered. Ordering Provider: Jimena MORENO Report Released Date/Time: Nov 17, 2023 11:49 AM Reporting Lab: [facility] [place] [address] [address] Performing Lab: [facility] [place] [address] [address] [facility] LIVER FUNCTION ALKALINE PHOSPHATASE [ENZYMATIC ACTIVITY/VO LUME] IN SERUM OR PLASMA 63 U/L 40 - 150 02/15 Specimen Type: SERUM No comment entered. Ordering Provider: Jimena MORENO Report Released Date/Time: Nov 17, 2023 11:49 AM Reporting Lab: [facility] [place] [address] [address] Performing Lab: [facility] [place] [facility] [address] [facility] [address] [facility] LIVER FUNCTION ASPARTATE AMINOTRANSF ERASE [ENZYMATIC ACTIVITY/VO LUME] IN SERUM OR PLASMA 25 U/L 5 - 34 02/15 Specimen Type: SERUM No comment entered. Ordering Provider: Jimena MORENO Report Released Date/Time: Nov 17, 2023 11:49 AM Reporting Lab: [facility] [place] [facility] [address] [facility] [address] Performing Lab: [facility] [place] [facility] [address] [facility] [address] [facility] [place] [facility] LIVER FUNCTION ALANINE AMINOTRANSF ERASE [ENZYMATIC ACTIVITY/VO LUME] IN SERUM OR PLASMA 24 U/L 02/15 Specimen Type: SERUM No comment entered. Ordering Provider: Jimena MORENO Report Released Date/Time: Nov 17, 2023 11:49 AM Reporting Lab: [facility] [place] [facility] [address] [facility] [address] Performing Lab: [facility] [place] [facility] [address] [facility] [address] [facility] [place] [facility] LIVER FUNCTION BILIRUBIN.T OTAL [MASS/VOLUM E] IN SERUM OR PLASMA 1.1 mg/dL 0.2 - 1.2 02/15 Specimen Type: SERUM No comment entered. Ordering Provider: Jimena MORENO Report Released Date/Time: Nov 17, 2023 11:49 AM Reporting Lab: [facility] [place] [facility] [address] [facility] [address] Performing Lab: [facility] [place] [address] [address] [facility] [place] [facility] BASIC METABOLIC PANEL (fasting) UREA NITROGEN [MASS/VOLUM E] IN SERUM OR PLASMA 18 mg/dL 7 - 25 02/15 Specimen Type: SERUM No comment entered. Ordering Provider: Jimena MORENO Report Released Date/Time: Nov 17, 2023 11:49 AM Reporting Lab: [facility] [place] [facility] [address] [facility] [address] Performing Lab: [facility] [place] [facility] [address] [facility] [address] [facility] [place] [facility] BASIC METABOLIC PANEL (fasting) GLUCOSE [MASS/VOLUM E] IN SERUM OR PLASMA 94 mg/dL 65 - 100 02/15 Specimen Type: SERUM No comment entered. Ordering Provider: Jimena MORENO Report Released Date/Time: Nov 17, 2023 11:49 AM Reporting Lab: [facility] [place] [facility] [address] [facility] [address] Performing Lab: [facility] [place] [facility] [address] [facility] [address] [facility] BASIC METABOLIC PANEL (fasting) SODIUM [MOLES/VOLU ME] IN SERUM OR PLASMA 141 mmol/L 135 - 145 02/15 Specimen Type: SERUM No comment entered. Ordering Provider: Jimena MORENO Report Released Date/Time: Nov 17, 2023 11:49 AM Reporting Lab: [facility] [place] [facility] [address] [facility] [address] Performing Lab: [facility] [place] [facility] [address] [facility] [address] [facility] [facility] BASIC METABOLIC PANEL (fasting) POTASSIUM [MOLES/VOLU ME] IN SERUM OR PLASMA 4.1 mmol/L 3.5 - 5.0 02/15 Specimen Type: SERUM No comment entered. Ordering Provider: Jimena MORENO Report Released Date/Time: Nov 17, 2023 11:49 AM Reporting Lab: [facility] [place] [facility] [address] [facility] [address] Performing Lab: [facility] [place] [facility] [address] [facility] [address] [facility] [place] [facility] BASIC METABOLIC PANEL (fasting) CHLORIDE [MOLES/VOLU ME] IN SERUM OR PLASMA 109 mmol/L 100 - 110 02/15 Specimen Type: SERUM No comment entered. Ordering Provider: Jimena MORENO Report Released Date/Time: Nov 17, 2023 11:49 AM Reporting Lab: [facility] [address] Performing Lab: [facility] [address] [address] [facility] BASIC METABOLIC PANEL (fasting) CARBON DIOXIDE, TOTAL [MOLES/VOLU ME] IN SERUM OR PLASMA 24 meq/L 20 - 30 02/15 Specimen Type: SERUM No comment entered. Ordering Provider: Jimena MORENO Report Released Date/Time: Nov 17, 2023 11:49 AM Reporting Lab: [facility] [address] [address] Performing Lab: [facility] [address] [address] [facility] BASIC METABOLIC PANEL (fasting) CREATININE [MASS/VOLUM E] IN SERUM OR PLASMA 0.77 mg/dL 0.50 - 1.40 02/15 Specimen Type: SERUM No comment entered. Ordering Provider: Jimena MORENO Report Released Date/Time: Nov 17, 2023 11:49 AM Reporting Lab: [facility] [address] [address] Performing Lab: [facility] [address] [facility] BASIC METABOLIC PANEL (fasting) GLOMERULAR FILTRATION RATE/1.73 SQ M.PREDICTED [VOLUME RATE/AREA] IN SERUM, PLASMA OR BLOOD BY CREATININE- BASED FORMULA (CKD-EPI 2020) >90mL/ min 60 02/15 Specimen Type: SERUM No comment entered. Ordering Provider: Jimena MORENO Report Released Date/Time: Nov 17, 2023 11:49 AM Reporting Lab: [facility] [address] [address] Performing Lab: [facility] [place] [facility] [address] [facility] [address] [facility] [place] [facility] LIPID PANEL FASTING CHOLESTEROL [MASS/VOLUM E] IN SERUM OR PLASMA 146 mg/dL 02/15 Specimen Type: SERUM No comment entered. Ordering Provider: Jimena MORENO Report Released Date/Time: Nov 17, 2023 11:49 AM Reporting Lab: [facility] [place] [facility] [address] [facility] [address] Performing Lab: [facility] [place] [facility] [address] [facility] [address] [facility] [facility] LIPID PANEL FASTING TRIGLYCERID E [MASS/VOLUM E] IN SERUM OR PLASMA 96 mg/dL 0 - 150 02/15 Specimen Type: SERUM No comment entered. Ordering Provider: Jimena MORENO Report Released Date/Time: Nov 17, 2023 11:49 AM Reporting Lab: [facility] [place] [facility] [address] [facility] [address] Performing Lab: [facility] [place] [facility] [address] [facility] [address] [facility] [facility] LIPID PANEL FASTING CHOLESTEROL IN LDL [MASS/VOLUM E] IN SERUM OR PLASMA BY CALCULATION 80 mg/dL 0 - 129 02/15 Specimen Type: SERUM No comment entered. Ordering Provider: Jimena MORENO Report Released Date/Time: Nov 17, 2023 11:49 AM Reporting Lab: [facility] [place] [facility] [address] [facility] [address] Performing Lab: [facility] [place] [address] [address] [facility] [place] [facility] LIPID PANEL FASTING CHOLESTEROL .TOTAL/CHOL ESTEROL IN HDL [MASS RATIO] IN SERUM OR PLASMA 3.1 02/15 Specimen Type: SERUM No comment entered. Ordering Provider: Jimena MORENO Report Released Date/Time: Nov 17, 2023 11:49 AM Reporting Lab: [facility] [place] [facility] [address] [facility] [address] Performing Lab: [facility] [place] [facility] [address] [facility] [address] [facility] [place] [facility] LIPID PANEL FASTING CHOLESTEROL IN HDL [MASS/VOLUM E] IN SERUM OR PLASMA 47 mg/dL 40 - 60 02/15 Specimen Type: SERUM No comment entered. Ordering Provider: Jimena MORENO Report Released Date/Time: Nov 17, 2023 11:49 AM Reporting Lab: [facility] [place] [facility] [address] [facility] [address] Performing Lab: [facility] [address] [facility] [address] [facility] TESTOSTER ONE, TOTAL TESTOSTERON E [MASS/VOLUM E] IN SERUM OR PLASMA 585.06 ng/dL 220.00 - 892.00 11/08 Specimen Type: SERUM No comment entered. Ordering Provider: Jimena MORENO Report Released Date/Time: Jul 20, 2023 03:40 PM Reporting Lab: [facility] [place] [facility] [address] [facility] [address] Performing Lab: [facility] [place] [address] [address] [facility] [place] [facility] LIVER FUNCTION PROTEIN [MASS/VOLUM E] IN SERUM OR PLASMA 6.4 g/dL 6.0 - 8.3 11/08 Specimen Type: SERUM No comment entered. Ordering Provider: Jimena MORENO Report Released Date/Time: Jul 20, 2023 03:40 PM Reporting Lab: [facility] [place] [facility] [address] [facility] [address] Performing Lab: [facility] [place] [facility] [address] [facility] [address] [facility] [place] [facility] LIVER FUNCTION ALBUMIN [MASS/VOLUM E] IN SERUM OR PLASMA 3.9 g/dL 3.5 - 5.0 11/08 Specimen Type: SERUM No comment entered. Ordering Provider: Jimena MORENO Report Released Date/Time: Jul 20, 2023 03:40 PM Reporting Lab: [facility] [place] [facility] [address] [facility] [address] Performing Lab: [facility] [place] [facility] [address] [facility] [address] [facility] [place] [facility] LIVER FUNCTION ALKALINE PHOSPHATASE [ENZYMATIC ACTIVITY/VO LUME] IN SERUM OR PLASMA 64 U/L 40 - 150 11/08 Specimen Type: SERUM No comment entered. Ordering Provider: Jimena MORENO Report Released Date/Time: Jul 20, 2023 03:40 PM Reporting Lab: [facility] [place] [facility] [address] [facility] [address] Performing Lab: [facility] [place] [facility] [address] [facility] [address] [facility] [place] [facility] LIVER FUNCTION ASPARTATE AMINOTRANSF ERASE [ENZYMATIC ACTIVITY/VO LUME] IN SERUM OR PLASMA 21 U/L 5 - 34 11/08 Specimen Type: SERUM No comment entered. Ordering Provider: Jimena MORENO Report Released Date/Time: Jul 20, 2023 03:40 PM Reporting Lab: [facility] [place] [facility] [address] [facility] [address] Performing Lab: [facility] [place] [facility] [address] [facility] [address] [facility] [place] [facility] LIVER FUNCTION ALANINE AMINOTRANSF ERASE [ENZYMATIC ACTIVITY/VO LUME] IN SERUM OR PLASMA 29 U/L 11/08 Specimen Type: SERUM No comment entered. Ordering Provider: Jimena MORENO Report Released Date/Time: Jul 20, 2023 03:40 PM Reporting Lab: [facility] [place] [facility] [address] [facility] [address] Performing Lab: [facility] [place] [facility] [address] [facility] [address] [facility] [place] [facility] LIVER FUNCTION BILIRUBIN.T OTAL [MASS/VOLUM E] IN SERUM OR PLASMA 0.6 mg/dL 0.2 - 1.2 11/08 Specimen Type: SERUM No comment entered. Ordering Provider: Jimena MORENO Report Released Date/Time: Jul 20, 2023 03:40 PM Reporting Lab: [facility] [place] [facility] [address] [facility] [address] Performing Lab: [facility] [place] [facility] [address] [facility] [address] [facility] [place] [facility] PSA PROSTATE SPECIFIC AG [MASS/VOLUM E] IN SERUM OR PLASMA 0.12 ng/mL 0.00 - 4.00 11/08 Specimen Type: SERUM No comment entered. Ordering Provider: Jimena MORENO Report Released Date/Time: Jul 20, 2023 03:40 PM Reporting Lab: [facility] [place] [facility] [address] [facility] [address] Performing Lab: [facility] [place] [facility] [address] [facility] [address] [facility] [place] [facility] Vital Signs Combined list of inpatient and outpatient Vital Signs from Department of Defense and Veterans Affairs, ranging from 12 months to all on record, depending upon the facility. Vital Sign Value Date Comments Source SYSTOLIC BLOOD PRESSURE 140 07/19/20 24 10:16:26 [facility] [place] DIASTOLIC BLOOD PRESSURE 82 024 10:16:26 [facility] PULSE 60 07/19/2024 10:16:26 [facility] [place] SYSTOLIC BLOOD PRESSURE 140 06/21/20 12:58:24 [facility] [place] [facility] DIASTOLIC BLOOD PRESSURE 70 12:58:24 [facility] PAIN 5 06/21/2024 12:58:24 [facility] [place] [facility] SYSTOLIC BLOOD PRESSURE 161 02/19/20 24 10:47:22 [facility] [place] [facility] DIASTOLIC BLOOD PRESSURE 95 024 10:47:22 [facility] [place] PULSE OXIMETRY 97 02/19/2024 10:47:22 [facility] WEIGHT 195 02/19/2024 10:47:22 [facility] BMI 31kg/m2 02/19/2024 10:47:22 [facility] [place] PAIN 5 02/19/2024 10:47:22 [facility] [place] HEIGHT 67 02/19/2024 10:47:22 [facility] TEMPERATURE 98.3 02/19/2024 10:47:22 [facility] PULSE 73 02/19/2024 10:47:22 [facility] RESPIRATION 20 02/19/2024 10:47:22 [facility] SYSTOLIC BLOOD PRESSURE 150 02/11/20 24 13:55:42 [facility] [place] DIASTOLIC BLOOD PRESSURE 70 024 13:55:42 [facility] [place] PAIN 5 02/11/2024 13:55:42 [facility] [place] SYSTOLIC BLOOD PRESSURE 136 11/17/19 24 11:11:02 [facility] [place] DIASTOLIC BLOOD PRESSURE 86 024 11:11:02 [facility] PULSE OXIMETRY 98 11/17/2023 11:11:02 [facility] WEIGHT 198 11/17/2023 11:11:02 [facility] [place] BMI 31kg/m2 11/17/2023 11:11:02 [facility] PAIN 0 11/17/2023 11:11:02 [facility] TEMPERATURE 98.4 11/17/2023 11:11:02 [facility] [place] PULSE 72 11/17/2023 11:11:02 [facility] RESPIRATION 16 11/17/2023 11:11:02 [facility] Encounters Combined list of: 1) Encounters from Department of Veterans Affairs facilities going back up to thelast 18 months. 2) Encounters from the Department of Defense facilities going back up to 280 months. 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 1 Primary open-an gle glaucom a, left eye, mild stage<b r/> BORASKI,AN BRANDYN E 02/13 [facility] [place] [place] [facility] FIT SPECTACLES MONOFOCAL [id number] Diagnos is: ICD-10- CM 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 1 Primary open-an gle glaucom a, left eye, mild stage<b r/> BORASKI,AN BRANDYN E 02/13 [facility] Outpatient Encounter [id number] 02/13 [facility] FIT SPECTACLES MONOFOCAL [id number] Diagnos is: ICD-10- CM Z46.0 Encount er for fit/adj st of spectac les and contact lenses< br/> HAVEN MISHRA 02/13 [facility] En[facility] [id number] 02/25 [facility] En[facility] [id number] 03/20 [facility] En[facility] [id number] 04/13 [facility] En[facility] [id number] 05/08 [facility] [id number] 05/11 [facility] En[facility] [id number] 06/13 [facility] Encounter [id number] 06/13 [facility] En[facility] [id number] 06/19 [facility] En[facility] [id number] 06/29 [facility] OFFICE O/P EST LOW 20-29 MIN [id number] Diagnos is: ICD-10- CM I11.9 Hyperte nsive heart disease without heart failure
APOORVA MORENO 07/20 [facility] En[facility] [id number] 07/20 [facility] En[facility] [id number] 07/22 [facility] Encounter [id number] 08/05 [facility] OFF/OP EST MAY X REQ PHY/QHP [id number] Diagnos is: ICD-10- CM I11.9 Hyperte nsive heart disease without heart failure
Cipriano GONZALES 08/21 [facility] En[facility] [id number] 09/04 [facility] Encounter [id number] 09/18 [facility] Out[facility] Encounter [id number] 09/29 [facility] COMPRE OPH EXAM EST PT 1/> [id number] 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, left eye, mild stage<b r/> MASOUD ESTRADA 10/02 [facility] EXTENDED VISUAL FIELD XM [id number] 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, left eye, mild stage<b r/> MASOUD ESTRADA E 10/02 [facility] CMPTR OPHTH IMG OPTIC NERVE [id number] 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, left eye, mild stage<b r/> MASOUD ESTRADA E 10/02 [facility] En[facility] [id number] 10/20 [facility] Encounter [id number] 10/28 [facility] Encounter [id number] 11/15 [facility] OFFICE O/P EST LOW 20 MIN [id number] Diagnos is: ICD-10- CM I11.9 Hyperte nsive heart disease without heart failure
APOORVA MORENO 11/16 [facility] En[facility] [id number] 11/16 [facility] Encounter [id number] 11/18 [facility] Encounter [id number] 11/29 [facility] Encounter [id number] 12/13 [facility] MTMS BY PHARM ADDL 15 MIN [id number] Diagnos is: ICD-10- CM 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
MADAI HOPKINS 12/14 [facility] En[facility] [id number] 02/10 [facility] [id number] 02/10 [facility] En[facility] [id number] [facility] OFFICE O/P EST LOW 20 MIN [id number] Diagnos is: ICD-10- CM I11.9 Hyperte nsive heart disease without heart failure
APOORVA MORENO 02/18 [facility] En[facility] [id number] [facility] [id number] [facility] En[facility] [id number] [facility]IN[facility] [id number] Diagnos is: ICD-10- CM M47.896 Other spondyl osis, lumbar region< br/> ALEXANDRA SKELTON 05/05 [facility] [place] [facility]IN[facility] [id number] Diagnos is: ICD-10- CM M47.896 Other spondyl osis, lumbar region< br/> ALEXANDRA SKELTON LU 05/20 [facility] [place] THERAPE[facility] C EXERCISES [id number] Diagnos is: ICD-10- CM M47.896 Other spondyl osis, lumbar region< br/> ALEXANDRA SKELTON LU 06/10 [facility] Outpatient Encounter [id number] 06/14 [facility] [place] [place] [facility]IN[facility] [id number] Diagnos is: ICD-10- CM M47.896 Other spondyl osis, lumbar region< br/> ALEXANDRA SKELTON LU 06/16 [facility] Outpatient [facility]counter [id number] 06/17 [facility] [place] OFFICE O/P EST LOW 20 MIN [id number] Diagnos is: ICD-10- CM 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
APOORVA MORENO 06/21 [facility] [place] [facility] [place] [facility] OFF/OP EST MAY X REQ PHY/QHP [id number] Diagnos is: ICD-10- CM I11.9 Hyperte nsive heart disease without heart failure
Cipriano GONZALES 07/19 [facility] [place] [facility] [facility] Social History Combined list of available smoking, tobacco, and other social history from Department of Defense and Veterans Affairs facilities. Social History Type Response Date Comment Source Tobacco smoking status [facility] VA-TOBACCO FORMER USER 11/17/2023 [facility] [place] [facility] History of tobacco use NC-TOBACCO QUIT 15 YRS OR MORE 11/17/2023 [facility] History of tobacco use NC-TOBACCO FORMER USER 10/30/2022 [facility] [place] [facility] History of tobacco use NC-TOBACCO FORMER USER 07/31/2021 [facility] [facility] of [facility] [place] [facility] History of tobacco use NC-TOBACCO QUIT 15 YRS OR MORE 02/10/2019 [facility] [place] [facility] History of tobacco use QUIT TOBACCO USE > 7 YEARS AGO 11/27/2017 [facility] [place] History of tobacco use QUIT TOBACCO USE > 7 YEARS AGO 11/05/2016 [facility] [place] [facility] History of tobacco use QUIT TOBACCO USE > 7 YEARS AGO 09/17/2015 stopped 20 years ago [facility] [place] [facility] History of tobacco use HISTORY OF SMOKING 02/24/2005 [facility] [place] [facility] History of tobacco use QUIT TOBACCO USE > 7 YEARS AGO 05/28/2004 [facility] [place] History of tobacco use HISTORY OF SMOKING 11/27/2003 [facility] [facility] History of tobacco use QUIT TOBACCO USE 1-7 YEARS AGO 03/15/2003 [facility] History of tobacco use HISTORY OF SMOKING 08/24/2002 [facility] [place] [facility] History of tobacco use QUIT TOBACCO USE 1-7 YEARS AGO 02/11/2002 [facility] [place] [facility] History of tobacco use HISTORY OF SMOKING 05/21/2001 quit 5 years ago [facility] Plan of Care List of future care activities from Department of [facility] facilities. Additional future care activities may be listed in the Assessment and Plan section. Date/Time Care Activity Care Activity Detail Facili ty 08/12/2024 AMBULATORY - MEDICINE [facility] 08/12/2024 AMBULATORY - MEDIC[facility] 08/12/2024 AMBULATORY - MEDICINE [facility] 10/20/2024 AMBULATORY - MEDICINE AMBULATORY - MEDICI NE [facility]
--- OUTSIDE RECORDS SUMMARY | 2024-07-29 08:28 | XMS_ITS ---
Author Name [facility] [place] Address [address] [place] [address] Care Team Providers Care Corporate Vp Advertising & Online Name Role Phone APOORVA MORENO Primary Care Provider Unavail able Insurance Providers: All historical and current Section Date Range: From patient's date of to the date document was created. This section includes the names of all active insurance providers for the patient. Insurance Provider Type of Coverage Plan Name Start of Policy Coverage End of Policy Coverage Group Number Member ID Insurance Provider's Telephone Number Policy Hare's Name Patient's Relationship to Policy Hare [facility] ([facility]) MEDICARE ADVANTAGE MCR ([facility]) Apr 17, 2013 [id number] Lauren COELHO PATIENT [facility] ([facility]) MEDICARE ADVANTAGE MCR ([facility]) Apr 17, 2013 [id number] Lauren COELHO PATIENT Selected Encounter This section includes the information on record at [place] for the Encounter. Date/Time Encounter Type Encounter Description Reason Pro vider Source Sep 04, 2023 12:00 AM Outpatient Encounter EVENT (HISTORICAL) IHE Encounter Template Text not used by [place] Plan of Treatment: Future Appointments (+ 6 months) and Future Tests (+/- 45 days) The Plan of Treatment section includes future care activities for the patient from all [place] [facility] This section includes future appointments and future orders which are active, pending or scheduled. Future Appointments This section includes appointments that were scheduled to occur 6 months from the date of the Encounter, up to a maximum of 20 appointments. The data comes from all [place] treatment facilities. Appointment Date/Time Appointment Type Appointme nt Facility Name Sep 18, 2023 10:30 AM AMBULATORY - MEDICINE [place] [facility] [place] [facility] Oct 02, 2023 11:30 AM AMBULATORY - MEDICINE [place] [facility] [place] [facility] Oct 02, 2023 11:45 AM AMBULATORY - MEDICINE [place] [facility] [place] [facility] Oct 02, 2023 12:30 PM AMBULATORY - MEDICINE [place] [facility] [place] [facility] Nov 17, 2023 11:30 AM AMBULATORY - MEDICINE [place] [facility] [place] [facility] Dec 15, 2023 11:00 AM AMBULATORY - MEDICINE [place] [facility] [place] [facility] Feb 11, 2024 02:00 PM AMBULATORY - REHAB MEDICIN E [place] [facility] [place] [facility] Feb 19, 2024 11:00 AM AMBULATORY - MEDICINE [facility] [place] [facility] Social History: Smoking Status (Most current) and Tobacco Use (All prior to encounter date) This section includes the most current, and the historical, smoking and tobacco- related health factors from the [place] facility where the Encounter took place. Current Smoking Status This section includes the most current smoking, or tobacco-related health factor, from the [place] facility where the Encounter took place. Date/Time Current Smoking Status Comment [facility] amy Oct 30, 2022 03:20 PM PA-TOBACCO QUIT 15 YRS OR MORE [facility] Tobacco Use History This section includes a history of the smoking, or tobacco-related health factors, that were collected on or before the date of the Encounter. The data comes from the [place] facility where the Encounter took place. Date/Time Smoking Status/Tobac co Use Comment Facility Oct 30, 2022 03:20 PM PA-TOBACCO QUIT 15 YRS OR MORE [facility] [place] [place] [facility] Jul 31, 2021 09:41 AM VA-TOBACCO FORMER USER [facility] [place] [facility] Jul 31, 2021 09:41 AM VA-TOBACCO QUIT 15 YRS OR MORE [facility] [place] [facility] Jun 29, 2020 11:00 AM VA-TOBACCO FORMER USER [facility] [place] [facility] Jun 29, 2020 11:00 AM VA-TOBACCO QUIT 15 YRS OR MORE [facility] [place] [facility] Feb 10, 2019 10:14 AM VA-TOBACCO FORMER USER [facility] [place] [facility] Feb 10, 2019 10:14 AM VA-TOBACCO QUIT 15 YRS OR MORE [facility] [place] [facility] Nov 27, 2017 11:12 AM QUIT TOBACCO USE > 7 YEARS AGO [facility] [place] [facility] Nov 05, 2016 11:01 AM QUIT TOBACCO USE > 7 YEARS AGO [facility] [place] [facility] Sep 17, 2015 01:03 PM QUIT TOBACCO USE > 7 YEARS AGO stopped 20 years ago [facility] [place] [facility] Feb 24, 2005 10:09 AM HISTORY OF SMOKING [facility] [place] [facility] May 28, 2004 08:08 AM QUIT TOBACCO USE > 7 YEARS AGO [facility] [place] [facility] Nov 27, 2003 01:12 PM HISTORY OF SMOKING [facility] [place] [facility] Mar 15, 2003 02:03 PM QUIT TOBACCO USE 1-7 YEARS AGO [facility] [place] [facility] Aug 24, 2002 11:07 AM HISTORY OF SMOKING [facility] [place] [facility] Feb 11, 2002 11:35 AM QUIT TOBACCO USE 1-7 YEARS AGO [facility] [place] [facility] May 21, 2001 01:11 PM HISTORY OF SMOKING quit 5 years ago [facility] [place] [facility] Encounter Notes: All associated encounter notes This section contains the clinical notes associated to the Encounter. Date/Time Encounter Note(s) Provider Source Sep 04, 2023 12:00 AM NONVA NOTE: LOCAL TITLE: NON-VA OUTPATIENT NOTES STANDARD TITLE: NONVA NOTE DATE OF NOTE: SEP 04, 2023 ENTRY DATE: SEP 22, 2023@07:00 AUTHOR: HUARD,BRADEN R EXP COSIGNER: URGENCY: STATUS: COMPLETED VistA Imaging - Scanned Document SCANNED DOCUMENT SIGNATURE NOT REQUIRED Electronically Filed: 09/22/2023 by: BRADEN CLAIRE [facility] Sep 04, 2023 12:00 AM NONVA DIAGNOSTIC S SARAY REPORT: LOCAL TITLE: NON-VA DIAGNOSTICS STANDARD TITLE: NONVA DIAGNOSTIC STUDY REPORT DATE OF NOTE: SEP 04, 2023 ENTRY DATE: JANUARY 07, 2024@14:32:08 AUTHOR: BECCA MOYA MA EXP COSIGNER: URGENCY: STATUS: COMPLETED VistA Imaging - Scanned Document SCANNED DOCUMENT SIGNATURE NOT REQUIRED Electronically Filed: 01/07/2024 by: BECCA MOYA PRIMARY GRADE TEACHER BECCA MOYA [facility]
--- OUTSIDE RECORDS SUMMARY | 2024-07-29 08:28 | XMS_ITS ---
Author Name [facility] [place] Address [address] [place] [address] Care Team Providers Care Survey Superintendent Name Role Phone ANUPAM LEE Primary Care Provider Unavail able Insurance Providers: [...] Hare's Name Patient's Relationship to Policy Hare [facility] ([facility]) MEDICARE ADVANTAGE MCR ([facility]) Apr 17, 2013 [id number] Lauren COELHO PATIENT [facility] ([facility]) MEDICARE ADVANTAGE MCR ([facility]) Apr 17, 2013 [id number] [phone] Lauren COELHO PATIENT Selected Encounter This section includes the information on record at [place] for the Encounter. Date/Time Encounter Type Encounter Description Reason Pro vider Source Sep 29, 2023 01:03 PM Outpatient Encounter COMMUNITY CARE CONSULT IHE Encounter Template Text not used by VA Plan of Treatment: Future Appointments (+ 6 months) and Future Tests (+/- 45 days) The Plan of Treatment section includes future care activities for the patient from all [place] [facility]. This section includes future appointments and future orders which are active, pending or scheduled. Future Appointments This section includes appointments that were scheduled to occur 6 months from the date of the Encounter, up to a maximum of 20 appointments. The data comes from all [place] treatment facilities. Appointment Date/Time Appointment Type Appointme nt Facility Name Oct 02, 2023 11:30 AM AM[place]ULATORY [place]ICINE [place] [place] [facility] Oct 02, 2023 11:45 AM AMBULATORY - MEDICINE [place] [facility] [place] [facility] Oct 02, 2023 12:30 PM AMBULATORY - MEDICINE [place] [facility] [place] [facility] Nov 17, 2023 11:30 AM AMBULATORY - MEDICINE [place] [facility] [place] [facility] Dec 15, 2023 11:00 AM AMBULATORY - MEDICINE [place] [facility] [place] [facility] Feb 11, 2024 02:00 PM AMBULATORY - REHAB MEDICIN [place] [facility] [place] [facility] Feb 19, 2024 11:00 AM AMBULATORY - MEDICINE [place] [facility] [place] [facility] Social History: Smoking Status (Most current) and Tobacco Use (All prior to encounter date) This section includes the most current, and the historical, smoking and tobacco- related health factors from the [place] facility where the Encounter took place. Current Smoking Status This section includes the most current smoking, or tobacco-related health factor, from the [place] facility where the Encounter took place. Date/Time Current Smoking Status Comment Bri reyes Oct 30, 2022 03:20 PM VA-TOBACCO FORMER USER [place] [facility] [place] [facility] Tobacco Use History This section includes a history of the smoking, or tobacco-related health factors, that were collected on or before the date of the Encounter. The data comes from the [place] facility where the Encounter took place. Date/Time Smoking Status/Tobac co Use Comment Facility Oct 30, 2022 03:20 PM VA-TOBACCO QUIT 15 YRS OR MORE [place] [facility] [place] [facility] Jul 31, 2021 09:41 AM VA-TOBACCO FORMER USER [place] [facility] [place] [facility] Jul 31, 2021 09:41 AM VA-TOBACCO QUIT 15 YRS OR MORE [facility] [place] [facility] Jun 29, 2020 11:00 AM VA-TOBACCO FORMER USER [facility] [place] [facility] Jun 29, 2020 11:00 AM VA-TOBACCO QUIT 15 YRS OR MORE [facility] [place] [facility] Feb 10, 2019 10:14 AM VA-TOBACCO FORMER USER [facility] [facility] Feb 10, 2019 10:14 AM VA-TOBACCO QUIT 15 YRS OR MORE [facility] [facility] Nov 27, 2017 11:12 AM QUIT TOBACCO USE > 7 YEARS AGO [facility] [place] [facility] Nov 05, 2016 11:01 AM QUIT TOBACCO USE > 7 YEARS AGO [facility] [place] [facility] Sep 17, 2015 01:03 PM QUIT TOBACCO USE > 7 YEARS AGO stopped 20 years ago [facility] [place] [facility] Feb 24, 2005 10:09 AM HISTORY OF SMOKING [facility] [place] [facility] May 28, 2004 08:08 AM QUIT TOBACCO USE > 7 YEARS AGO [facility] [place] [facility] Nov 27, 2003 01:12 PM HISTORY OF SMOKING [facility] [place] [facility] Mar 15, 2003 02:03 PM QUIT TOBACCO USE 1-7 YEARS AGO [facility] [place] [facility] Aug 24, 2002 11:07 AM HISTORY OF SMOKING [facility] [place] [facility] Feb 11, 2002 11:35 AM QUIT TOBACCO USE 1-7 YEARS AGO [facility] [place] [facility] May 21, 2001 01:11 PM HISTORY OF SMOKING quit 5 years ago [place] [facility] [place] [facility] Encounter Notes: All associated encounter notes This section contains the clinical notes associated to the Encounter. Date/Time Encounter Note(s) Provider Source Sep 29, 2023 01:04 PM ADMINISTRATIVE NOTE: LOCAL TITLE: ADMINISTRATIVE NOTE STANDARD TITLE: ADMINISTRATIVE NOTE DATE OF NOTE: SEP 29, 2023@13:04 ENTRY DATE: SEP 29, 2023@13:04:22 AUTHOR: JESSIE MCLEOD EXP COSIGNER: URGENCY: STATUS: COMPLETED [place] reports he is being followed by [facility] using private insurance. is requesting [place] referral to see Dr. Luis Guerrero at [facility] for spinal cord stimulation trial. Notes are available in [place] from 09/04/[address] Guerrero. Thank you /rajesh/ JESSIE MCLEOD [facility]ly [facility] BSN RN TAJ Signed: 09/29/2023 16:15 Receipt Acknowledged By: 10/02/2023 14:05 /rajesh/ BECCA OLIVARES MEDICAL ADMINISTRATION OFFICER 09/29/2023 16:22 /rajesh/ Anupam Lee PA-C STAFF PHYSICIAN DELIVERY SALES WORKER 10/06/2023 08:21 /rajesh/ YOLY GONZALES, ALEXEI REGISTERED NURSE JESSIE MCLEOD [facility]
--- OUTSIDE RECORDS SUMMARY | 2024-07-29 08:28 | XMS_ITS ---
Author Name [facility] [place] Address [address] [place] [address] Care Team Providers Care Beater Operator Name Role Phone APOORVA MORENO Primary Care [...] Hare's Name Patient's Relationship to Policy Hare [facility]) MEDICARE ADVANTAGE MCR ([facility]) Apr 17, 2013 [id number] Lauren COELHO PATIENT [facility] ([facility]) MEDICARE ADVANTAGE MCR ([facility]) Apr 17, 2013 [id number] Lauren COELHO PATIENT Selected Encounter This section includes the information on record at [place] for the Encounter. Date/Time Encounter Type Encounter Description Reason Pro vider Source Aug 05, 2023 09:35 AM Outpatient Encounter ADMIN PAT ACTIVTIES (MASNONCT) IHE Encounter Template Text not used by [place] Plan of Treatment: Future Appointments (+ 6 months) and Future Tests (+/- 45 days) The Plan of Treatment section includes future care activities for the patient from all [place] [facility] This section includes future appointments and future orders which are active, pending or scheduled. Future Appointments This section includes appointments that were scheduled to occur 6 months from the date of the Encounter, up to a maximum of 20 appointments. The data comes from all [place] treatment facilities. Appointment Date/Time Appointment Type Appointme nt Facility Name Aug 21, 2023 10:00 AM AMBULATORY - MEDICINE [place] [facility] [place] [facility] Sep 18, 2023 10:30 AM AMBULATORY MEDICINE [place] [facility] [place] [facility] Oct 02, 2023 11:30 AM [facility] Oct 02, 2023 11:45 AM AMBULATORY MEDICINE [facility] Oct 02, 2023 12:30 PM AMBULATORY - MEDICINE [place] [facility] [place] [facility] Nov 17, 2023 11:30 AM [facility]ORY MEDICINE [place] [facility] Dec 15, 2023 11:00 AM AMBULATORY MEDICINE [facility] Lab Results: +/- 30 days of the encounter This section includes the Chemistry and Hematology Lab Results on record with [place] for the patient. Radiology Reports and Pathology Reports are provided separately, in subsequent sections. Lab Results This section contains the Chemistry/Hematology Results that were resulted 30 days before or 30 daysafter the date of the Encounter. Date/Time Source Result Type Result - Unit Interpretation Reference Range Comment Jul 13, 2023 10:14 AM [facility] BASIC METABOLIC PANEL (fasting) Specimen Type: SERUM No comment entered. Ordering Provider: ROCKY MORENO Report Released Date/Time: Nov 07, 2022 11:27 AM Reporting Lab: [facility] [address] [facility] [address] Performing Lab: [address] [address] UREA NITROGEN 15 mg/dL 7-25 GLUCOSE 102 mg/dL H 65-100 SODIUM 138 mmol/L 135-145 POTASSIUM 4.4 mmol/L 3.5-5.0 CHLORIDE 106 mmol/L 100-110 CO2 23 meq/L 20-30 CREATININE, Serum 0.76 mg/dL 0.50-1.40 eGFR(CKD-EPI 2020) >90 mL/min >60 Jul 13, 2023 10:14 AM [facility] PSA Specimen Type: SERUM No comment entered. Ordering Provider: ROCKY MORENO Report Released Date/Time: Nov 07, 2022 11:27 AM Reporting Lab: [facility] [address] [facility] [address] Performing Lab: [facility] [address] [address] PSA 0.11 ng/mL 0.00-4.00 Jul 13, 2023 10:14 AM [facility] CBC Specimen Type: BLOOD No comment entered. Ordering Provider: ROCKY MORENO Report Released Date/Time: Nov 07, 2022 11:27 AM Reporting Lab: [facility] [address] [facility] [address] Performing Lab: [facility] [address] WBC 5.30 10*3/uL 4.50-11.00 RBC 4.75 10*6/uL 4.23-5.66 HGB 12.9 g/dL 12.8-17 HCT 40.6 39.2-50.4 MCV 85.5 fL 82-99 MCHC 31.8 g/dL 30.8-35.1 PLT 207 10*3/uL 140-360 RDW-CV 13.0 12.0-16.0 MCH 27.2 pg 26.2-32.6 Jul 13, 2023 10:14 AM [facility] LIPID PANEL FASTING Specimen Type: SERUM No comment entered. Ordering Provider: ROCKY MORENO Report Released Date/Time: Nov 07, 2022 11:27 AM Reporting Lab: [address] [address] Performing Lab: [facility] [address] [place] [address] CHOLESTEROL 149 mg/dL TRIGLYCERIDE 84 mg/dL 0-150 LDL calculated 86 mg/dL 0-129 CHOL/HDL 3.2 HDL CHOLESTEROL 46 mg/dL 40-60 Jul 13, 2023 10:14 AM [facility] LIVER FUNCTION Specimen Type: SERUM No comment entered. Ordering Provider: ROCKY MORENO Report Released Date/Time: Nov 07, 2022 11:27 AM Reporting Lab: [facility] [address] [facility] [address] Performing Lab: [address] [address] PROTEIN,TOTAL 6.8 g/dL 6.0-8.3 ALBUMIN 4.0 g/dL 3.5-5.0 ALKALINE PHOSPHATASE 60 U/L 40-150 AST 25 U/L 5-34 ALT 31 U/L BILIRUBIN, TOTAL 0.4 mg/dL 0.2-1.2 Social History: Smoking Status (Most current) and Tobacco Use (All prior to encounter date) This section includes the most current, and the historical, smoking and tobacco- related health factors from the [place] facility where the Encounter took place. Current Smoking Status This section includes the most current smoking, or tobacco-related health factor, from the [place] facility where the Encounter took place. Date/Time Current Smoking Status Comment Bri macedo Oct 30, 2022 03:20 PM VA-TOBACCO FORMER USER [facility] Tobacco Use History This section includes a history of the smoking, or tobacco-related health factors, that were collected on or before the date of the Encounter. The data comes from the [place] facility where the Encounter took place. Date/Time Smoking Status/Tobac co Use Comment Facility Oct 30, 2022 03:20 PM VA-TOBACCO QUIT 15 YRS OR MORE [facility] Jul 31, 2021 09:41 AM VA-TOBACCO FORMER USER [facility] Jul 31, 2021 09:41 AM VA-TOBACCO QUIT 15 YRS OR MORE [facility] Jun 29, 2020 11:00 AM VA-TOBACCO FORMER USER [facility] [place] [facility] Jun 29, 2020 11:00 AM VA-TOBACCO QUIT 15 YRS OR MORE [facility] [place] [facility] Feb 10, 2019 10:14 AM VA-TOBACCO FORMER USER [facility] [place] [facility] Feb 10, 2019 10:14 AM VA-TOBACCO QUIT 15 YRS OR MORE [facility] [place] [facility] Nov 27, 2017 11:12 AM QUIT TOBACCO USE > 7 YEARS AGO [facility] [place] [facility] Nov 05, 2016 11:01 AM QUIT TOBACCO USE > 7 YEARS AGO [facility] [place] [facility] Sep 17, 2015 01:03 PM QUIT TOBACCO USE > 7 YEARS AGO stopped 20 years ago [facility] [place] [facility] Feb 24, 2005 10:09 AM HISTORY OF SMOKING [facility] [place] [facility] May 28, 2004 08:08 AM QUIT TOBACCO USE > 7 YEARS AGO [facility] [place] [facility] Nov 27, 2003 01:12 PM HISTORY OF SMOKING [facility] [place] [facility] Mar 15, 2003 02:03 PM QUIT TOBACCO USE 1-7 YEARS AGO [facility] [place] [facility] Aug 24, 2002 11:07 AM HISTORY OF SMOKING [facility] [place] [facility] Feb 11, 2002 11:35 AM QUIT TOBACCO USE 1-7 YEARS AGO [facility] [place] [facility] May 21, 2001 01:11 PM HISTORY OF SMOKING quit 5 years ago [facility] [place] [facility] Encounter Notes: All associated encounter notes This section contains the clinical notes associated to the Encounter. Date/Time Encounter Note(s) Provider Source Aug 05, 2023 09:35 AM ADMINISTRATIVE NOT E: LOCAL TITLE: CCC: SCHEDULING ADMINISTRATION STANDARD TITLE: ADMINISTRATIVE NOTE DATE OF NOTE: AUG 05, 2023@09:35:18 ENTRY DATE: AUG 05, 2023@09:35:18 AUTHOR: SAM AMATO COSIGNER: URGENCY: STATUS: COMPLETED CCC: SCHEDULING ADMINISTRATION Has ADDENDA Patient Demographics Patient Name: HANH COELHO Patient Primary Phone: [phone] Patient Primary Address: [address] [place] [id number] Patient : 1945 Patient Age: 77 Caller/Recipient Relation to Patient: Self Scheduling Cannot Complete Scheduling Action Reason: Restricted / Unavailable Clinic Requested Service(s): Primary Care Scheduling Note Reason: Cannot Complete Appointment Request Open Request: RTC (Return to Clinic Order) Administrative Administrative Note Reason: Other Administrative Note Comments: Hubbell called to cancel his PACT RN visit due to holiday travel. Hubbell is hoping to be seen ThursdayAug 19. at 10 or 11 if possible. Hubbell would like a call back to schedule. Best call back # [phone] /rajesh/ SAM JOLLY [facility] Signed: 08/05/2023 09:35 Receipt Acknowledged By: 08/12/2023 09:54 /rajesh/ GISSELL ALVARADO LPN 08/05/2023 13:44 /rajesh/ ARMANDO WRIGHT 08/05/2023 ADDENDUM STATUS: COMPLETED [facility] called and spoke with PT rescheduled PT 08/21/2023 @ 10 am /rajesh/ ARMANDO WRIGHT Signed: 08/05/2023 13:45 SAM AMATO [facility]
--- OUTSIDE RECORDS SUMMARY | 2024-07-29 08:28 | XMS_ITS ---
Author Name [facility] [place] Address [address] [place] [address] Care Team Providers Care Central Office Frame Wirer Name Role Phone ANUPAM LEE Primary Care [...] Policy Hare's Name Patient's Relationship to Policy Haer [facility] MCR (WNR) MEDICARE ADVANTAGE MCR ([facility]) Apr 17, 2013 [id number] [phone] Lauren COELHO PATIENT [facility] MCR (WNR) MEDICARE ADVANTAGE MCR ([facility]) Apr 17, 2013 [id number] Lauren COELHO PATIENT Selected Encounter This section includes the information on record at [place] for the Encounter. Date/Time Encounter Type Encounter Description Reason Provider Source Aug 21, 2023 10:00 AM OFF/OP EST DECEMBER X REQ PHY/QHP PRIMARY CARE/MEDICINE ICD-10-CM I11.9 Hypertensive heart disease without heart failure YOVANY GONZALES IHE Encounter Template Text not used by [place] Assessments - Encounter Diagnoses This section includes the primary and secondary diagnoses documented for the Encounter. Date/Time Primary/Secondary Diagnosis Diagnosis Name Provider Source Aug 21, 2023 10:11 AM PRIMARY Hypertensive heart disease without heart failure YOVAYN GONZALES [place] [facility] [place] [facility] Plan of Treatment: Future Appointments (+ 6 months) and Future Tests (+/- 45 days) The Plan of Treatment section includes future care activities for the patient from all [place] [facility]. This section includes future appointments and future orders which are active, pending or scheduled. Future Appointments This section includes appointments that were scheduled to occur 6 months from the date of the Encounter, up to a maximum of 20 appointments. The data comes from all [place] treatment facilities. Appointment Date/Time Appointment Type Appointme nt Facility Name Sep 18, 2023 10:30 AM AMBULATORY - MEDICINE [place] [facility] [place] [facility] Oct 02, 2023 11:30 AM AMBULATORY - MEDICINE [place] [facility] [place] [facility] Oct 02, 2023 11:45 AM AMBULATORY - MEDICINE [place] [facility] [place] [facility] Oct 02, 2023 12:30 PM AMBULATORY - MEDICINE [place] [facility] [place] [facility] Nov 17, 2023 11:30 AM AMBULATORY - MEDICINE [place] [facility] [place] [facility] Dec 15, 2023 11:00 AM AMBULATORY - MEDICINE [place] [facility] [place] [facility] Feb 11, 2024 02:00 PM AMBULATORY - REHAB MEDICIN E [place] [facility] [place] [facility] Feb 19, 2024 11:00 AM AMBULATORY - MEDICINE [place] [facility] [place] [facility] Vital Signs: All taken on the encounter date This section contains inpatient and outpatient Vital Signs collected on the date of the Encounter. Date/Time Temperature Pulse Blood Pressure Respiratory Rate SP02 Pain Height Weight Body Mass Index Source Aug 21, 2023 10:00 AM 136/78 mm[Hg] [place] [facility] [facility] Aug 21, 2023 10:00 AM 70 /min 135/79 mm[Hg] [place] [facility] Social History: Smoking Status (Most current) and Tobacco Use (All prior to encounter date) This section includes the most current, and the historical, smoking and tobacco- related health factors from the [place] facility where the Encounter took place. Current Smoking Status This section includes the most current smoking, or tobacco-related health factor, from the [place] facility where the Encounter took place. Date/Time Current Smoking Status Comment Bri it Oct 30, 2022 03:20 PM VA-TOBACCO FORMER USER [place] [facility] [place] [facility] Tobacco Use History This section includes a history of the smoking, or tobacco-related health factors, that were collected on or before the date of the Encounter. The data comes from the [place] facility where the Encounter took place. Date/Time Smoking Status/Tobac co Use Comment Facility Oct 30, 2022 03:20 PM VA-TOBACCO QUIT 15 YRS OR MORE [place] [facility] [place] [facility] Jul 31, 2021 09:41 AM VA-TOBACCO FORMER USER [facility] [place] [facility] Jul 31, 2021 09:41 AM VA-TOBACCO QUIT 15 YRS OR MORE [place] [facility] [place] [facility] Jun 29, 2020 11:00 AM VA-TOBACCO FORMER USER [place] [facility] [facility] Jun 29, 2020 11:00 AM VA-TOBACCO QUIT 15 YRS OR MORE [place] [facility] [facility] Feb 10, 2019 10:14 AM VA-TOBACCO FORMER USER [place] [facility] [place] [place] [facility] Feb 10, 2019 10:14 AM VA-TOBACCO QUIT 15 YRS OR MORE [facility] [place] [facility] Nov 27, 2017 11:12 AM QUIT TOBACCO USE > 7 YEARS AGO [facility] [place] [facility] Nov 05, 2016 11:01 AM QUIT TOBACCO USE > 7 YEARS AGO [facility] [place] [facility] Sep 17, 2015 01:03 PM QUIT TOBACCO USE > 7 YEARS AGO stopped 20 years ago [facility] [place] [facility] Feb 24, 2005 10:09 AM HISTORY OF SMOKING [facility] [place] [facility] May 28, 2004 08:08 AM QUIT TOBACCO USE > 7 YEARS AGO [facility] [place] [facility] Nov 27, 2003 01:12 PM HISTORY OF SMOKING [place] [facility] [place] [facility] Mar 15, 2003 02:03 PM QUIT TOBACCO USE 1-7 YE[facility] A[facility] [place] [facility] Aug 24, 2002 11:07 AM H[facility]ORY OF SMOKING [facility] [place] [facility] Feb 11, 2002 11:35 AM QUIT TOBACCO USE 1-7 YEARS AGO [place] [facility] [facility] May 21, 2001 01:11 PM HISTORY OF SMOKING quit 5 [facility] Encounter Notes: All associated encounter notes This section contains the clinical notes associated to the Encounter. Date/Time Encounter Note(s) Provider Source Aug 21, 2023 09:42 AM PRIMARY CARE OUTPA TIENT NOTE: LOCAL TITLE: AMBULATORY/OUTPATIENT CARE NOTE STANDARD TITLE: PRIMARY CARE OUTPATIENT NOTE DATE OF NOTE: AUG 21, 2023@09:42 ENTRY DATE: AUG 21, 2023@09:42:49 AUTHOR: YOLY GONZALES EXP COSIGNER: URGENCY: STATUS: COMPLETED Blood pressure check: F: Nursing Clinic D: here for blood pressure check per PCP Anupam Lee. Vet has history of hypertension. Presently he is taking this medication for elevated B/P: AMLODIPINE BESYLATE TAB 10MG & LABETALOL 100MG BID from outside Cardiology ([facility]). Amlodipine was increased at last PCP appt and he resumed taking the labetalol after Cardiology appt this past spring. Next appt with PCP is on Nov 16, 2022. Reports super dry mouth from increased dose, no edema or flushing. [facility] notes in chart from 05/08/23 list labetalol 300 mg BID while other notes have it at 100 mg BID which is [place]'s stated dose. A: B/P today is 135/79 in his left arm and 136/78 in his right arm (manual cuff used with arm elevated at heart level) Pulse is 70. [place] reports home BPs average around same as above. Will review results with pcp. R: [place] tolerated well and left area ab devin. /rajesh/ YOLY GONZALES RN REGISTERED NURSE Signed: 08/21/2023 10:11 Receipt Acknowledged By: 08/21/2023 12:37 /rajesh/ Anupam Lee PA-C STAFF PHYSICIAN CREPE MACHINE OPERATOR FREEDMAN,YOLY Jules DEJESUS
--- OUTSIDE RECORDS SUMMARY | 2024-07-29 08:28 | XMS_ITS ---
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 Date/Time Encounter Type Encounter Description Reason Provider Source Oct 02, 2023 11:30 AM COMPRE OPH EXAM EST PT 1/> OPTOMETRY ICD-10-CM 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, left eye, mild stage PURNIMA ESTRADA [facility] Encounter Template Text not used by [place] Assessments - Encounter Diagnoses This section includes the primary and secondary diagnoses documented for the Encounter. Date/Time Primary/Secondary Diagnosis Diagnosis Name Provider Source Oct 02, 2023 12:22 PM PRIMARY Low-tension glaucoma, left eye, mild stage PURNIMA ESTRADA [facility] Oct 02, 2023 12:22 PM SECONDARY Combined forms of age-related cataract, bilateral PURNIMA ESTRADA [facility] Plan of Treatment: Future Appointments (+ 6 months) and Future Tests (+/- 45 days) The Plan of Treatment section includes future care activities for the patient from all [place] [facility] This section includes future appointments and future orders which are active, pending or scheduled. Future Appointments This section includes appointments that were scheduled to occur 6 months from the date of the Encounter, up to a maximum of 20 appointments. The data comes from all [place] treatment facilities. Appointment Date/Time Appointment Type Appointme nt Facility Name Nov 17, 2023 11:30 AM [facility] Dec 15, 2023 11:00 AM [facility] Feb 11, 2024 02:00 PM [facility] Feb 19, 2024 11:00 AM AMBULATORY - MEDICINE [facility] Social History: Smoking Status (Most current) and Tobacco Use (All prior to encounter date) This section includes the most current, and the historical, smoking and tobacco- related health factors from the [place] facility where the Encounter took place. Current Smoking Status This section includes the most current smoking, or tobacco-related health factor, from the [place] facility where the Encounter took place. Date/Time Current Smoking Status Comment Bri reyes Oct 30, 2022 03:20 PM VA-TOBACCO FORMER USER [facility] Tobacco Use History This section includes a history of the smoking, or tobacco-related health factors, that were collected on or before the date of the Encounter. The data comes from the [place] facility where the Encounter took place. Date/Time Smoking Status/Tobac co Use Comment Facility Oct 30, 2022 03:20 PM VA-TOBACCO QUIT 15 YRS OR MORE [facility] [place] [facility] Jul 31, 2021 09:41 AM VA-TOBACCO FORMER USER [facility] [place] [facility] Jul 31, 2021 09:41 AM VA-TOBACCO QUIT 15 YRS OR MORE [facility] [place] [facility] Jun 29, 2020 11:00 AM VA-TOBACCO FORMER USER [facility] [place] [facility] Jun 29, 2020 11:00 AM VA-TOBACCO QUIT 15 YRS OR MORE [facility] [place] [facility] Feb 10, 2019 10:14 AM VA-TOBACCO FORMER USER [facility] [place] [facility] Feb 10, 2019 10:14 AM VA-TOBACCO QUIT 15 YRS OR MORE [facility] [place] [facility] Nov 27, 2017 11:12 AM QUIT TOBACCO USE > 7 YEARS AGO [facility] [place] [facility] Nov 05, 2016 11:01 AM QUIT TOBACCO USE > 7 YEARS AGO [facility] [place] [facility] Sep 17, 2015 01:03 PM QUIT TOBACCO USE > 7 YEARS AGO stopped 20 years ago [facility] [place] [facility] Feb 24, 2005 10:09 AM HISTORY OF SMOKING [facility] [place] [facility] May 28, 2004 08:08 AM QUIT TOBACCO USE > 7 YEARS AGO [facility] [place] [facility] Nov 27, 2003 01:12 PM HISTORY OF SMOKING [facility] [place] [facility] Mar 15, 2003 02:03 PM QUIT TOBACCO USE 1-7 YEARS AGO [facility] [place] [facility] Aug 24, 2002 11:07 AM HISTORY OF SMOKING [facility] [place] [facility] Feb 11, 2002 11:35 AM QUIT TOBACCO USE 1-7 YEARS AGO [facility] [place] [facility] May 21, 2001 01:11 PM HISTORY OF SMOKING quit 5 years ago [facility] [place] [facility] Encounter Notes: All associated encounter notes This section contains the clinical notes associated to the Encounter. Date/Time Encounter Note(s) Provider Source Oct 02, 2023 08:01 AM OPTOMETRY NOTE: LOCAL TITLE: OPTOMETRY NOTE(T) STANDARD TITLE: OPTOMETRY NOTE DATE OF NOTE: OCT 02, 2023@08:01 ENTRY DATE: OCT 02, 2023@08:01:03 AUTHOR: PURNIMA ESTRADA EXP COSIGNER: URGENCY: STATUS: COMPLETED Active Problems: Active Problem History of implantation of penile p 11/07/2022 APOORVA MORENO Cancer of prostate D07.5 05/06/2016 APOORVA MORENO Sciatica D07.5 09/17/2015 APOORVA MORENO Benign essential hypertension (SNOM 01/06/2017 MOISES WILSON Hypogonadism 253.4 06/28/2013 APOORVA MORENO Screening for Malignant Neoplasms o 06/14/2012 APOORVA MORENO Hearing loss * (ICD-9-CM 389.9) 389 12/03/2009 PAIGE CAMACHO Tinnitus * (ICD-9-CM 388.30) 388.30 12/03/2009 PAIGE CAMACHO Chronic sinusitis (ICD-9-CM 473.9) 12/03/2009 PAIGE CAMACHO Impaired FASTING Glucose (ICD-9-CM 12/16/2007 PAIGE CAMACHO Hyperlipidemia * (ICD-9-CM 272.4) 2 12/16/2007 PAIGE CAMACHO Allergic rhinitis * (ICD-9-CM 477.9 11/27/2005 RAHEB,EDE Diverticulitis, Colonic * (ICD-9-CM 08/22/2010 RAHEB,EDE Hypertrophy (Benign) of Prostate wi 08/26/2012 APOORVA MORENO GERD * (ICD-9-CM 530.81) 530.81 02/24/2005 PAIGE CAMACHO Insomnia * (ICD-9-CM 780.52) 780.52 03/15/2003 PAIGE CAMACHO 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 11/27/2003 PAIGE CAMACHO DIAPHRAGMATIC HERNIA 553.3 02/11/2002 PAIGE CAMACHO CALCULUS OF KIDNEY 592.0 02/11/2002 PAIGE CAMACHO former smoker 799.9 02/11/2002 PAIGE CAMACHO Medications ([facility]): Active Outpatient Medications (including Supplies): Active Outpatient Medications Status 1) AMLODIPINE BESYLATE 10MG TAB TAKE ONE TABLET BY MOUTH ACTIVE ONCE DAILY FOR BLOOD PRESSURE/HEART, DO NOT TAKE WITH GRAPEFRUIT JUICE 2) ATORVASTATIN CALCIUM 40MG TAB TAKE ONE-HALF TABLET BY ACTIVE MOUTH ONCE DAILY FOR CHOLESTEROL REPLACES SIMVASTATIN. 3) LATANOPROST 0.005% OPH SOLN INSTILL 1 DROP INTO THE ACTIVE LEFT EYE AT BEDTIME TO REDUCE PRESSURE IN THE EYE 4) ZOLPIDEM TARTRATE 10MG TAB TAKE ONE TABLET BY MOUTH ACTIVE AT BEDTIME NEEDED FOR SLEEP Active Non-VA Medications Status 1) Non-VA ASPIRIN 81MG EC TAB 81MG BY MOUTH DAILY ACTIVE 2) Non-VA LABETALOL HCL 100MG TAB 100MG BY MOUTH TWICE ACTIVE DAILY 6 Total Medications Allergies: SULFONAMIDE/RELATED ANTIMICROBIALS, AUGMENTIN S: 77-year-old is in for 6-month follow-up with a history of low tension glaucoma OS and glaucoma suspect OD. He takes latanoprost nightly OS. He denies any eye injury or disease since his last exam. 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 SHAHRIAR: 02/13/2023 (-) Pain: (-) CRAMER: (-) Diplopia: (-) Flashes: (-) Floaters: (-) Amaurosis Fugax/Tia's: (-) Eye Injury: (-) Eye Surgery: (-) TBI O: Visual acuity without correction was 20/25 - OD and 20/25+ OS. Pupils were equal and round and reactive to light with no afferent defect. Extraocular muscles were intact and facial confrontation cohen were full. Dermatochalasis was seen OU and lashes were clear both eyes. Corneas and conjunctiva were clear both eyes. Anterior chambers were deep clear and quiet with open angles. Iris was flat both eyes with some darkening of the iris stroma OS. Moderate nuclear sclerotic and cortical cataracts OU. Current Rx with last BCVA: OD: +[id number] VA: 20/20 OS: +1.25-1.90a503 VA: 20/20 Add: +2.50 Intraocular pressures at 12 PM were 11 mmHg OD and 11 mmHg OS T max: 22 mmHg OS from 10/15/2017 Pachymetry: 562 OD, 541 OS Dilating Drops: 1GTT 1 % Tropicamide OU & 1GTT 2.5% Phenylephrine OU (Pt. ed. on side effects, dilation warning given and verbal consent obtained) Patient advised not to drive if they feel they have any symptoms which could affect their ability to drive safely. Patient advised not to engage in any activities which could put themselves or others at risk if they feel they have any symptoms which could affect their ability to perform those activities safely. Vitreous PVD was seen OU. Approximately 50% horizontal and vertical cupping was seen OD with healthy rims and margins and 75% horizontal and greater vertical cupping OS with superior temporal notch. Normal pigmentary architecture of the macula was seen with a two third artery to vein ratio. Retinal peripheries were intact in all quadrants OU. A: Low-tension glaucoma OS remaining stable from prior exams and low risk glaucoma suspect OD. Combined cataracts slightly visually significant OU Refraction disorder P: Continue latanoprost OS nightly. Patient has refills. The patient will return in 6 months or sooner if any problems arise, including repeat imaging. [place] Education: After discussion and answering all 's questions, demonstrated and verbalized understanding of diagnosis and treatment. Yes [x] No [ ] Patient Education: Glaucoma: Patient was educated regarding glaucoma/glaucoma suspect as well as the natural history of this diagnosis including prognosis. Stress importance of compliance and persistency with glaucoma medication when prescribed, timely follow up as well as the role of ancillary testing. Exclusion criteria for ancillary testing include significantly reduced acuity, mental status changes affecting the patient's ability to attend to the test or other physical limitations that would prohibit the patient's ability to participate in testing. Medication Reconciliation: Outpatient: Has the patient been taking medications as documented in the EMLR? YES: The patient has been taking medications as documented in the EMLR. Essential Medication List for Review used to complete this medication reconciliation. INCLUDED IN THIS LIST: Alphabetical list of active outpatient prescriptions dispensed from this [place] (local) and dispensed from another [place] or [facility] facility (remote) as well as inpatient orders (local, pending and active), local clinic medications, locally documented non-VA medications, and local prescriptions that have or been discontinued in the past 90 days. - All changes in medications, including all non-VA/Herbal/OTC medications were entered into CPRS. - If there were any medications the patient should no longer take, they were discontinued. - The patient/caregiver was instructed to update this list, discard old lists, and take this list to the next appointment, whether with a VA or non-VA provider. /rajesh/ PURNIMA ESTRADA STAFF SILVER LAP MACHINE TENDER Signed: 10/02/2023 12:22 PURNIMA ESTRADA [place] [facility]
--- NOTE | 2024-07-29 08:29 | A.OFFVIS_ITS ---
Vital Signs 07/29/24 08:30 Height 5 ft 9 in Weight 191 lb BMI 28.2 BP 146/68 H Blood Pressure Location Lt brachial Position Sitting Respiration 15 Pulse 73 Pulse Source Pulse Oximeter Pulse Oximetry (%) 96 Oxygen Delivery Method Room Air Intake Visit Reasons: PROCEDURE DISCUSSION Allergies sulfamethoxazole [From Bactrim] Allergy (Verified 07/29/24 08:31) Mouth sores, Stomach pains trimethoprim [From Bactrim] Allergy (Verified 07/29/24 08:31) Mouth sores, Stomach pains Sulfa (Sulfonamide Antibiotics) Adverse Reaction (Intermediate, Verified 07/29/24 08:31) MOUTH SORES, RASH Medication List - Last Reconciled 07/29/24 by Aurelia Wu LPN amlodipine 10 mg PO DAILY atorvastatin 20 mg PO BEDTIME carvedilol (Coreg) 6.25 mg PO BID 90 days cholecalciferol (vitamin D3) 2,000 units PO DAILY 30 days docusate sodium (Colace) 100 mg PO BID PRN multivitamin 1 tab PO DAILY naproxen 500 mg PO BID PRN 7 days testosterone 1 packet transdermal DAILY 30 days zolpidem (Ambien) 10 mg PO BEDTIME PRN HPI HPI PROCEDURE DISCUSSION: Details: 78-year-old male who presents today to the office for a discussion of procedure. He visited a nurse at the [facility] after the last visit, who evaluated him for the implantable device. He was referred to a qa software test engineer, Dr. Owen Orosco, who recommended physical therapy and a chiropractor. He has done physical therapy with no result. He reports having pain that is not constant in nature but extremely bothersome when present. The pain starts in the right lower back region and radiates to his right thigh, and his right thigh sometimes includes the groin and the calf. He has sciatica-type shooting and numbing pain down the leg. He is able to stand and walk with pain, but it is manageable. His pain is worse with sitting down. He has difficulty sleeping at night. He lives with his .? Past procedure: 06/10/23: Lumbar Intra-articular Facet Injections, Right L5/S1: 50-60% relief of radicular symptoms in the right leg. [facility] Medical History (Updated 08/02/24 @ 11:00 by Luis Guerrero MD) HTN (hypertension) BPH (benign prostatic hyperplasia) Encounter to establish care Erectile dysfunction due to arterial insufficiency Fracture, thoracic vertebra, compression Lumbar degenerative disc disease Essential hypertension Ascending aortic aneurysm Annual physical exam Normal colonoscopy Prostate CA Allergic rhinitis Polycythemia Hyperlipidemia Hearing problem Insomnia Hypogonadism male Osteoporosis Surgical History Hx of transurethral resection of prostate Hx of cystoscopy History of esophagogastroduodenoscopy (EGD) Hx of appendectomy History of repair of hiatal hernia Hx of hernia repair History of colon resection Hx of nasal septoplasty Hx of colonoscopy Family History Father Alzheimer disease Colon cancer Colon polyps Mother No problems noted. Other Mental health disorder Social History Housing: House Alcohol intake: current Alcohol intake frequency: holidays/special occasions only Patient Tobacco Use Status: Former Tobacco user e-Cigarette/Vaping Use: Never Used Second Hand Smoke Exposure: No service: Yes Current occupational status: employed and retired Current occupational exposures/hazards: No Cognitive needs: No Hearing needs: Yes Vision needs: No Review of Systems Const All systems reviewed & are unremarkable except as noted in HPI and below Physical Exam Vital Signs: Last Vital Signs Pulse 73 07/29/24 08:30 Resp 15 07/29/24 08:30 BP 146/68 H 07/29/24 08:30 Pulse Ox 96 07/29/24 08:30 Oxygen Delivery Method Room Air 07/29/24 08:30 BMI result Body Mass Index 28.2 General: Appears afebrile. Alert and oriented. Mood and affect appropriate. Follows and participates in conversation appropriately. Respiratory effort is unlabored. Able to transition from sit to stand unassisted. Ambulates with bilaterally normal heel strike and toe off. Straight?leg?raises are?negative?bilaterally.? Results Reviewed Results Reviewed: No imaging is available for review. Assessment & Plan Assessment & Plan (1) Vertebrogenic low back pain: Comment: Patient is currently being seen by pain management as well as physiatry. Multiple MRIs and imaging studies on file. Intermittently utilizes Tylenol and naproxen. Patient has been educated on side effects of naproxen not to utilize with hypertension. Patient is waiting unsure in for implantable radiofrequency device. Patient states that his back pain is improved when he stands or moves around. Code(s): M54.51 - Vertebrogenic low back pain Category: Medical (2) Thoracic back pain: Code(s): M54.6 - Pain in thoracic spine Category: Medical Qualifiers: Chronicity: chronic Back pain laterality: unspecified Qualified Code(s): M54.6 - Pain in thoracic spine; G89.29 - Other chronic pain (3) Low back pain with right-sided sciatica: Code(s): M54.41 - Lumbago with sciatica, right side Category: Medical Qualifiers: Chronicity: chronic Back pain laterality: right Qualified Code(s): M54.41 - Lumbago with sciatica, right side; G89.29 - Other chronic pain (4) Lumbar spondylosis: Code(s): M47.816 - Spondylosis without myelopathy or radiculopathy, lumbar region Category: Medical (5) Synovial cyst of lumbar facet joint: Code(s): M71.38 - Other bursal cyst, other site Category: Medical Plan We will plan for right L5-S1 transforaminal epidural steroid injection to help with the pain that radiates down his thigh, calf, and groin, as well as effects his right lower back. Discussed the risks and benefits of the procedure with the patient in detail. All questions were answered. The patient is on board with the plan. Based on his recent MRI scan, the cyst is no longer present, but he does have some tightening at that level and hopefully the injection should help with the radicular symptoms. I discussed temporary nerve stimulation as a possible therapeutic option for his his axial intractable mid and lower back pain. His [facility] adjusters were not convinced about the need for spinal cord stimulation as a long-term treatment option for him. We discussed the risks and benefits of SCS and after considering his symptoms and the opinions of his qa software test [facility], I think he would be a good candidate for a temporary medial branch nerve stimulator instead to help with his axial low back pain. We will plan on this after the TFESI. Patient expressed understanding and as an agreement with the plan. Justification for interventional therapy: ? Patient with average pain > 6/10 with both radicular and axial components. ? Patient has exhausted conservative therapy including oral medications, chiropractic therapy, physical therapy. . Patient has a good understanding of their pain condition and has appropriate mental and social support. Scribed for Dr. Guerrero by Zack Peter, medical office technology instructor, on 07/29/2024. I, Dr. Guerrero, have personally reviewed and agree with the information entered by the scribe. Coding Level of Care Code Est Pt Level 4 (57581) Diagnoses Vertebrogenic low back pain M54.51 Chronic thoracic back pain, unspecified back pain laterality M54.6; G89.29 Chronicity: chronic Back pain laterality: unspecified Chronic right-sided low back pain with right-sided sciatica M54.41; G89.29 Chronicity: chronic Back pain laterality: right Lumbar spondylosis M47.816 Synovial cyst of lumbar facet joint M71.38
--- OUTSIDE RECORDS SUMMARY | 2024-07-29 08:29 | XMS_ITS ---
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 Date/Time Primary/Secondary Diagnosis Diagnosis Name Provider Source Oct 02, 2023 12:17 PM PRIMARY Low-tension glaucoma, left eye, mild stage [facility]NIMA ESTR[facility] Plan of Treatment: Future Appointments (+ 6 months) and Future Tests (+/- 45 days) The Plan of Treatment section includes future care activities for the patient from all [place] [facility]. This section includes future appointments and future orders which are active, pending or scheduled. Future Appointments This section includes appointments that were scheduled to occur 6 months from the date of the Encounter, up to a maximum of 20 appointments. The data comes from all [place] treatment facilities. Appointment Date/Time Appointment Type Appointme nt Facility Name Nov 17, 2023 11:30 AM [facility] Dec 15, 2023 11:00 AM [facility] [place] [facility] Feb 11, 2024 02:00 PM [facility] [place] [facility] Feb 19, 2024 11:00 AM [facility] Social History: Smoking Status (Most current) and Tobacco Use (All prior to encounter date) This section includes the most current, and the historical, smoking and tobacco- related health factors from the [place] facility where the Encounter took place. Current Smoking Status This section includes the most current smoking, or tobacco-related health factor, from the [place] facility where the Encounter took place. Date/Time Current Smoking Status Comment Bri reyes Oct 30, 2022 03:20 PM VA-TOBACCO [facility] Tobacco Use History This section includes a history of the smoking, or tobacco-related health factors, that were collected on or before the date of the Encounter. The data comes from the [place] facility where the Encounter took place. Date/Time Smoking Status/Tobac co Use Comment Facility Oct 30, 2022 03:20 PM VA-TOBACCO QUIT 15 YRS OR MORE [facility] Jul 31, 2021 09:41 AM VA-TOBACCO FOR[facility] Jul 31, 2021 09:41 AM VA-TOBACCO QUIT 15 YRS OR MORE [facility] [place] [facility] Jun 29, 2020 11:00 AM VA-TOBACCO FORMER USER [facility] [place] [facility] Jun 29, 2020 11:00 AM VA-TOBACCO QUIT 15 YRS OR MORE [facility] [place] [facility] Feb 10, 2019 10:14 AM VA-TOBACCO FORMER USER [facility] [place] [facility] Feb 10, 2019 10:14 AM VA-TOBACCO QUIT 15 YRS OR MORE [facility] [place] [facility] Nov 27, 2017 11:12 AM QUIT TOBACCO USE > 7 YEARS AGO [facility] [place] [facility] Nov 05, 2016 11:01 AM QUIT TOBACCO USE > 7 YEARS AGO [facility] [place] [facility] Sep 17, 2015 01:03 PM QUIT TOBACCO USE > 7 YEARS AGO stopped 20 years ago [facility] [place] [facility] Feb 24, 2005 10:09 AM HISTORY OF SMOKING [facility] [place] [facility] May 28, 2004 08:08 AM QUIT TOBACCO USE > 7 YEARS AGO [facility] [place] [facility] Nov 27, 2003 01:12 PM HISTORY OF SMOKING [facility] [place] [facility] Mar 15, 2003 02:03 PM QUIT TOBACCO USE 1-7 YEARS AGO [facility] [place] [facility] Aug 24, 2002 11:07 AM HISTORY OF SMOKING [facility] [place] [facility] Feb 11, 2002 11:35 AM QUIT TOBACCO USE 1-7 YEARS AGO [facility] [place] [facility] May 21, 2001 01:11 PM HISTORY OF SMOKING quit 5 years ago [facility] [place] [facility] Encounter Notes: All associated encounter notes This section contains the clinical notes associated to the Encounter. Date/Time Encounter Note(s) Provider Source Oct 21, 2023 01:32 PM ACCOUNTING OF DISCLOSURES NOTE: LOCAL TITLE: STATE PRESCRIPTION DRUG MONITORING PROGRAM STANDARD TITLE: ACCOUNTING OF DISCLOSURES NOTE DATE OF NOTE: OCT 21, 2023@13:32:32 ENTRY DATE: OCT 21, 2023@13:32:32 AUTHOR: ANUPAM LEE EXP COSIGNER: URGENCY: STATUS: COMPLETED This PDMP query was submitted by Anupam Lee. The clinical justification for this PDMP query is to review controlled substances prescribed outside of the [facility], and any additional information that may become available, as an important component of standard clinical care, and in accordance with [facility] policy. Patient information was shared with the PDMP [place]. No prescription(s) for controlled substances outside the [facility] were found in the last 90 days. /rajesh/ Anupam Lee PA-C STAFF PHYSICIAN SENIOR STAFF SPECIALIZED EMPLOYMENT Signed: 10/21/2023 13:34 ANUPAM LEE [place] [facility] [facility] Oct 02, 2023 12:10 PM OPTOMETRY CONSULT: LOCAL TITLE: CONSULT REPORT/OPTOMETRY/SEAN( T) STANDARD TITLE: OPTOMETRY CONSULT DATE OF NOTE: OCT 02, 2023@12:10 ENTRY DATE: OCT 02, 2023@12:10:16 AUTHOR: PURNIMA ESTRADA EXP COSIGNER: URGENCY: STATUS: COMPLETED Active Problems: Active Problem History of implantation of penile p 11/07/2022 ANUPAM LEE Cancer of prostate D07.5 05/06/2016 ANUPAM LEE Sciatica D07.5 09/17/2015 ANUPAM LEE Benign essential hypertension (SNOM 01/06/2017 MOISES WILSON Hypogonadism 253.4 06/28/2013 ANUPAM LEE Screening for Malignant Neoplasms o 06/14/2012 ANUPAM LEE Hearing loss * (ICD-9-CM 389.9) 389 12/03/2009 PAIGE CAMACHO Tinnitus * (ICD-9-CM 388.30) 388.30 12/03/2009 PAIGE CAMACHO Chronic sinusitis (ICD-9-CM 473.9) 12/03/2009 PAIGE CAMACHO Impaired FASTING Glucose (ICD-9-CM 12/16/2007 PAIGE CAMACHO Hyperlipidemia * (ICD-9-CM 272.4) 2 12/16/2007 PAIGE CAMACHO Allergic rhinitis * (ICD-9-CM 477.9 11/27/2005 RAEDE NEIL Diverticulitis, Colonic * (ICD-9-CM 08/22/2010 RAHEB,EDE Hypertrophy (Benign) of Prostate wi 08/26/2012 ANUPAM LEE GERD * (ICD-9-CM 530.81) 530.81 02/24/2005 PAIGE CAMACHO Insomnia * (ICD-9-CM 780.52) 780.52 03/15/2003 PAIGE CAMACHO 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 11/27/2003 PAIGE CAMACHO DIAPHRAGMATIC HERNIA 553.3 02/11/2002 PAIGE CAMACHO CALCULUS OF KIDNEY 592.0 02/11/2002 PAIGE CAMACHO former smoker 799.9 02/11/2002 PAIGE CAMACHO Active Medications ([facility]): Active Outpatient Medications (including Supplies): [...] TAB TAKE ONE TABLET BY MOUTH ACTIVE (S) AT BEDTIME NEEDED FOR SLEEP Active Non-VA Medications Status 1) Non-VA ASPIRIN 81MG EC TAB 81MG BY MOUTH DAILY ACTIVE 2) Non-VA LABETALOL HCL 100MG TAB 100MG BY MOUTH TWICE ACTIVE DAILY 6 Total Medications Active Medications (non-VA prescribed): Allergies: SULFONAMIDE/RELATED ANTIMICROBIALS, AUGMENTIN S: Patient with low-tension glaucoma OS is in for repeat OCT. O: Neuroretinal rim and nerve fiber layer thickness OCT was run by airframe and powerplant technician. A: Results are remaining reasonably stable from prior scans with OS showing small notch superior temporal in correspondence with inferior nasal step OS and OD remaining stable. History of low-tension glaucoma OS P: Follow-up is scheduled for today. /rajesh/ PURNIMA ESTRADA OD STAFF TERRITORY SERVICE REPRESENTATIVE Signed: 10/02/2023 12:16 PURNIMA ESTRADA [facility]
--- OUTSIDE RECORDS SUMMARY | 2024-07-29 08:29 | XMS_ITS ---
Author Name [facility] [place] Organization [place] Address [address] [place] [address] Care Team Providers Care Clinical Material Handler Name Role Phone ANUPAM LEE Primary Care [...] Hare's Name Patient's Relationship to Policy Hare [facility] ([facility]) MEDICARE ADVANTAGE MCR ([facility]) Apr 17, 2013 [id number] Lauren COELHO PATIENT [facility] ([facility]) MEDICARE ADVANTAGE MCR ([facility]) Apr 17, 2013 [id number] [phone] Lauren COELHO PATIENT Selected Encounter This section includes the information on record at [place] for the Encounter. Date/Time Encounter Type Encounter Description Reason Pro vider Source Oct 21, 2023 09:14 AM Outpatient Encounter ADMIN PAT ACTIVTIES (GADIELCT) IHE Encounter Template Text not used by [place] Plan of Treatment: Future Appointments (+ 6 months) and Future Tests (+/- 45 days) The Plan of Treatment section includes future care activities for the patient from all [place] treatmentfacilities. This section includes future appointments and future orders which are active, pending or scheduled. Future Appointments This section includes appointments that were scheduled to occur 6 months from the date of the Encounter, up to a maximum of 20 appointments. The data comes from all [place] treatment facilities. Appointment Date/Time Appointment Type Appointme nt Facility Name Nov 17, 2023 11:30 AM AMBULATORY - MEDICINE [facility] [place] [facility] Dec 15, 2023 11:00 AM AMBULATORY - MEDICINE [facility] [place] [facility] Feb 11, 2024 02:00 PM AMBULATORY - REHAB MEDICIN E [facility] [place] [facility] Feb 19, 2024 11:00 AM [facility] Lab Results: +/- 30 days of the encounter This section includes the Chemistry and Hematology Lab Results on record with [place] for the patient. Radiology Reports and Pathology Reports are provided separately, in subsequent sections. Lab Results This section contains the Chemistry/Hematology Results that were resulted 30 days before or 30 daysafter the date of the Encounter. Date/Time Source Result Type Result - Unit Interpretation Reference Range Comment Nov 09, 2023 09:40 AM [facility] TESTOSTERONE, TOTAL Specimen Type: SERUM No comment entered. Ordering Provider: ROCKY LEE Report Released Date/Time: Jul 20, 2023 03:40 PM Reporting [facility] [address] [address] Performing Lab: [facility] [address] [address] TESTOSTERONE, TOTAL 585.06 ng/dL 220.00-892. 00 Nov 09, 2023 09:40 AM [facility] LIVER FUNCTION Specimen Type: SERUM No comment entered. Ordering Provider: ROCKY LEE Report Released Date/Time: Jul 20, 2023 03:40 PM Reporting Lab: [facility] [address] [address] Performing Lab: [facility] [address] [facility] [address] PROTEIN,TOTAL 6.4 g/dL 6.0-8.3 ALBUMIN 3.9 g/dL 3.5-5.0 ALKALINE PHOSPHATASE 64 U/L 40-150 AST 21 U/L 5-34 ALT 29 U/L BILIRUBIN, TOTAL 0.6 mg/dL 0.2-1.2 Nov 09, 2023 09:40 AM [facility] PSA Specimen Type: SERUM No comment entered. Ordering Provider: ROCKY LEE Report Released Date/Time: Jul 20, 2023 03:40 PM Reporting Lab: [address] [address] Performing Lab: [address] [address] PSA 0.12 ng/mL 0.00-4.00 Nov 09, 2023 09:40 AM [facility] BASIC METABOLIC PANEL (fasting) Specimen Type: SERUM No comment entered. Ordering Provider: ROCKY LEE Report Released Date/Time: Jul 20, 2023 03:40 PM Reporting Lab: [address] [address] Performing Lab: [address] [address] UREA NITROGEN 14 mg/dL 7-25 GLUCOSE 108 mg/dL H 65-100 SODIUM 138 mmol/L 135-145 POTASSIUM 4.3 mmol/L 3.5-5.0 CHLORIDE 106 mmol/L 100-110 CO2 23 meq/L 20-30 CREATININE, Serum 0.74 mg/dL 0.50-1.40 eGFR(CKD-EPI 2020) >90 mL/min >60 Nov 09, 2023 09:40 AM [facility] LIPID PANEL FASTING Specimen Type: SERUM No comment entered. Ordering Provider: ROCKY LEE Report Released Date/Time: Jul 20, 2023 03:40 PM Reporting Lab: [address] [address] Performing Lab: [facility] [place] [facility] [address] [facility] [address] CHOLESTEROL 142 mg/dL TRIGLYCERIDE 85 mg/dL 0-150 LDL calculated 79 mg/dL 0-129 CHOL/HDL 3.1 HDL CHOLESTEROL 46 mg/dL 40-60 Social History: Smoking Status (Most current) and Tobacco Use (All prior to encounter date) This section includes the most current, and the historical, smoking and tobacco- related health factors from the [place] facility where the Encounter took place. Current Smoking Status This section includes the most current smoking, or tobacco-related health factor, from the [place] facility where the Encounter took place. Date/Time Current Smoking Status Comment [facility] Oct 30, 2022 03:20 PM VA-TOBACCO FORMER USER [facility] [place] [facility] Tobacco Use History This section includes a history of the smoking, or tobacco-related health factors, that were collected on or before the date of the Encounter. The data comes from the [place] facility where the Encounter took place. Date/Time Smoking Status/Tobac co Use Comment Facility Oct 30, 2022 03:20 PM VA-TOBACCO QUIT 15 YRS OR MORE [facility] [place] [facility] Jul 31, 2021 09:41 AM VA-TOBACCO FORMER USER [facility] [place] [facility] Jul 31, 2021 09:41 AM VA-TOBACCO QUIT 15 YRS OR MORE [facility] [place] [facility] Jun 29, 2020 11:00 AM VA-TOBACCO FORMER USER [facility] [place] [facility] Jun 29, 2020 11:00 AM VA-TOBACCO QUIT 15 YRS OR MORE [facility] [place] [facility] Feb 10, 2019 10:14 AM VA-TOBACCO FORMER USER [facility] [place] [facility] Feb 10, 2019 10:14 AM VA-TOBACCO QUIT 15 YRS OR MORE [facility] [place] [facility] Nov 27, 2017 11:12 AM QUIT TOBACCO USE > 7 YEARS AGO [facility] [place] [facility] Nov 05, 2016 11:01 AM QUIT TOBACCO USE > 7 YEARS AGO [facility] [place] [facility] Sep 17, 2015 01:03 PM QUIT TOBACCO USE > 7 YEARS AGO stopped 20 years ago [facility] [place] [facility] Feb 24, 2005 10:09 AM HISTORY OF SMO[facility] May 28, 2004 08:08 AM QUIT TOBACCO USE > [facility] [place] [facility] Nov 27, 2003 01:12 PM HISTORY [facility] SMOKING [facility] Mar 15, 2003 02:03 PM QUIT TOBACCO USE 1-7 YE[facility] A[facility] Aug 24, 2002 11:07 AM HISTORY OF SMOKING [facility] Feb 11, 2002 11:35 AM QUIT TOBACCO USE 1-7 YEARS AGO [facility] May 21, 2001 01:11 PM HISTORY OF SMOKING quit 5 years ago [facility] Encounter Notes: All associated encounter notes This section contains the clinical notes associated to the Encounter. Date/Time Encounter Note(s) Provider Source Oct 21, 2023 09:14 AM ADMINISTRATIVE NOT E: LOCAL TITLE: CCC: SCHEDULING ADMINISTRATION STANDARD TITLE: ADMINISTRATIVE NOTE DATE OF NOTE: OCT 21, 2023@09:14:25 ENTRY DATE: OCT 21, 2023@09:14:25 AUTHOR: KANIKA MAIN EXP COSIGNER: URGENCY: STATUS: COMPLETED Patient Demographics Patient Name: HANH COELHO Patient Primary Phone: [phone] Patient Primary [address]: [address] [place] [id number] Patient : 1945 Patient Age: 77 Caller/Recipient Relation to Patient: Self Administrative Administrative Note Reason: Medication Renewal Medications Refill/Renewal Request: please renew and mail ZOLPIDEM TARTRATE 10MG TAB /es/ KANIKA MAIN [id number] Signed: 10/21/2023 09:14 Receipt Acknowledged By: 10/21/2023 13:41 /es/ YOLY GONZALES RN REGISTERED NURSE 10/21/2023 13:34 /es/ Anupam Lee PA-C STAFF PHYSICIAN TILE MECHANIC HELPER KANIKA MAIN [facility]
--- OUTSIDE RECORDS SUMMARY | 2024-07-29 08:29 | XMS_ITS | Encounter Summary ---
Author Name [facility] [place] [facility] [place] Organization [place] Address [address] [place] [address] Care Team Providers Care Linux Server Administrator Name Role Phone APOORVA MORENO Primary Care [...] Hare's Name Patient's Relationship to Policy Hare [facility] ([facility]) MEDICARE ADVANTAGE MCR ([facility]) Apr 17, 2013 [id number] Lauren COELHO PATIENT [facility] ([facility]) MEDICARE ADVANTAGE MCR ([facility]) Apr 17, 2013 [id number] Lauren COELHO PATIENT Selected Encounter This section includes the information on record at [place] for the Encounter. 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 Date/Time Primary/Secondary Diagnosis Diagnosis Name Provider Source Oct 02, 2023 12:14 PM PRIMARY Low-tension glaucoma, left eye, mild stage [facility] Plan of Treatment: Future Appointments (+ 6 months) and Future Tests (+/- 45 days) The Plan of Treatment section includes future care activities for the patient [facility] [place] [facility]. This section includes future appointments and future orders which are active, pending or scheduled. Future Appointments This section includes appointments that were scheduled to occur 6 months from the date of the Encounter, up to a maximum of 20 appointments. The data comes from all [place] treatment facilities. Appointment Date/Time Appointment Type Appointme nt Facility Name Nov 17, 2023 11:30 AM [facility]UL[facility] Dec 15, 2023 11:00 AM [facility]ULAT[facility] - [facility] Feb 11, 2024 02:00 PM [facility]ULAT[facility] - [facility] [place] [facility] Feb 19, 2024 11:00 AM [facility] Social History: Smoking Status (Most current) and Tobacco Use (All prior to encounter date) This section includes the most current, and the historical, smoking and tobacco- related health factors from the [place] facility where the Encounter took place. Current Smoking Status This section includes the most current smoking, or tobacco-related health factor, from the [place] facility where the Encounter took place. Date/Time Current Smoking Status Comment [facility] amy Oct 30, 2022 03:20 PM VA-TOBACCO [facility] Tobacco Use History This section includes a history of the smoking, or tobacco-related health factors, that were collected on or before the date of the Encounter. The data comes from the [place] facility where the Encounter took place. Date/Time Smoking Status/Tobac co Use Comment Facility Oct 30, 2022 03:20 PM VA-TOBACCO QUIT 15 YRS OR MORE [facility] Jul 31, 2021 09:41 AM VA-TOBACCO FORMER USER [facility] [place] [facility] Jul 31, 2021 09:41 AM VA-TOBACCO QUIT 15 YRS OR MORE [facility] [place] [facility] Jun 29, 2020 11:00 AM VA-TOBACCO FORMER USER [facility] [place] [facility] Jun 29, 2020 11:00 AM VA-TOBACCO QUIT 15 YRS OR MORE [facility] [place] [facility] Feb 10, 2019 10:14 AM VA-TOBACCO FORMER USER [facility] [place] [facility] Feb 10, 2019 10:14 AM VA-TOBACCO QUIT 15 YRS OR MORE [facility] [place] [facility] Nov 27, 2017 11:12 AM QUIT TOBACCO USE > 7 YEARS AGO [facility] [place] [facility] Nov 05, 2016 11:01 AM QUIT TOBACCO USE > 7 YEARS AGO [facility] [place] [facility] Sep 17, 2015 01:03 PM QUIT TOBACCO USE > 7 YEARS AGO stopped 20 years ago [facility] [place] [facility] Feb 24, 2005 10:09 AM HISTORY OF SMOKING [facility] [place] [facility] May 28, 2004 08:08 AM QUIT TOBACCO USE > 7 YEARS AGO [facility] [place] [facility] Nov 27, 2003 01:12 PM HISTORY OF SMOKING [facility] [place] [facility] Mar 15, 2003 02:03 PM QUIT TOBACCO USE 1-7 YEARS AGO [facility] [place] [facility] Aug 24, 2002 11:07 AM HISTORY OF SMOKING [facility] [place] [facility] Feb 11, 2002 11:35 AM QUIT TOBACCO USE 1-7 YEARS AGO [facility] [place] [facility] May 21, 2001 01:11 PM HISTORY OF SMOKING quit 5 years ago [facility] [place] [facility] Encounter Notes: All associated encounter notes This section contains the clinical notes associated to the Encounter. Date/Time Encounter Note(s) Provider Source Oct 02, 2023 12:10 PM OPTOMETRY CONSULT: LOCAL TITLE: CONSULT REPORT/OPTOMETRY/SEAN (Shashank) STANDARD TITLE: OPTOMETRY CONSULT DATE OF NOTE: OCT 02, 2023@12:10 ENTRY DATE: OCT 02, 2023@12:10:57 AUTHOR: PURNIMA ESTRADA EXP COSIGNER: URGENCY: STATUS: [...] Medications (including Supplies): Active Outpatient Medications Status = 1) AMLODIPINE BESYLATE 10MG TAB TAKE ONE [...] NEEDED FOR SLEEP Active Non-VA Medications Status = 1) Non-VA ASPIRIN 81MG EC TAB 81MG BY MOUTH DAILY ACTIVE 2) Non-VA LABETALOL HCL 100MG TAB 100MG BY MOUTH TWICE ACTIVE DAILY 6 Total Medications Active Medications (non-VA prescribed): Allergies: SULFONAMIDE/RELATED ANTIMICROBIALS, AUGMENTIN S: Patient with a history of low-tension glaucoma OS is in for repeat threshold cohen. O: Miranda fast 242 cohen were run by environmental health technician. A: OD field is normal with low test reliability and within normal limits GHT. OS shows inferior nasal step possibly slightly larger than before however with stable OCT from prior scans. History of low-tension glaucoma OS. P: Follow-up is scheduled for today. 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
[2024-07-29 08:30] VITALS: BP 146/68; PULSE 73; RESP 15; O2SAT 96; BMI 28.2
--- OUTSIDE RECORDS SUMMARY | 2024-07-29 08:30 | XMS_ITS | Encounter Summary ---
Author Name [facility] [place] [facility] [place] Address [address] [place] [address] Care Team Providers Care Policy Intern Name Role Phone APOORVA MORENO Primary Care [...] Hare's Name Patient's Relationship to Policy Hare [facility] ([facility]) MEDICARE ADVANTAGE MCR ([facility]) Apr 17, 2013 [id number] Lauren COELHO PATIENT [facility] ([facility]) MEDICARE ADVANTAGE MCR ([facility]) Apr 17, 2013 [id number] Lauren COELHO PATIENT Selected Encounter This section includes the information on record at [place] for the Encounter. Date/Time Encounter Type Encounter Description Reason Pro vider Source Nov 16, 2023 11:12 AM Outpatient Encounter OPTOMETRY IHE Encounter Template Text not used by [facility] Plan of Treatment: Future Appointments (+ 6 months) and Future Tests (+/- 45 days) The Plan of Treatment section includes future care activities for the patient [facility] [place] [facility] This section includes future appointments and future orders which are active, pending or scheduled. Future Appointments This section includes appointments that were scheduled to occur 6 months from the date of the Encounter, up to a maximum of 20 appointments. The data comes from all [place] treatment facilities. Appointment Date/Time Appointment Type Appointme nt Facility Name Nov 17, 2023 11:30 AM AMBULATORY - MEDICINE [facility] Dec 15, 2023 11:00 AM AMBULATORY - MEDICINE [place] [facility] Feb 11, 2024 02:00 PM AM[place]ULATORY - [place] [place] [facility] Feb 19, 2024 11:00 AM [facility] May 05, 2024 02:30 PM AMBULATORY - REHAB MEDICIN E [place] Active, Pending, and Scheduled Orders This section includes a listing of several types of active, pending, and scheduled orders, including clinic medications orders, diagnostic test orders, procedure orders and consult orders; where the start date of the order is 45 days before the date of the Encounter or 45 days after the date of theEncounter. The data comes from all [facility]. Test Date/Time Test Type Test Details Facility Name Dec 15, 2023 04:25 PM Consult Order REHAB MEDI CINE/NHM OUTPT Cons Plant And Equipment Worker's Choice [facility] Lab Results: +/- 30 days of the encounter This section includes the Chemistry and Hematology Lab Results on record with [place] for the patient. Radiology Reports and Pathology Reports are provided separately, in subsequent sections. Lab Results This section contains the Chemistry/Hematology Results that were resulted 30 days before or 30 daysafter the date of the Encounter. Date/Time Source Result Type Result - Unit Interpretation Reference Range Comment Nov 09, 2023 09:[address] [facility] TESTOSTERONE, TOTAL Specimen Type: SERUM No comment entered. Ordering Provider: ROCKY MORENO Report Released Date/Time: Jul 20, 2023 03:40 PM Reporting [facility] [address] [address] Performing Lab: [facility] [address] [facility] [address] TESTOSTERONE, TOTAL 585.06 ng/dL 220.00-892. 00 Nov 09, 2023 09:40 AM [facility] LIVER FUNCTION Specimen Type: SERUM No comment entered. Ordering Provider: ROCKY MORENO Report Released Date/Time: Jul 20, 2023 03:40 PM Reporting Lab: [address] [address] Performing Lab: [address] [address] PROTEIN,TOTAL 6.4 g/dL 6.0-8.3 ALBUMIN 3.9 g/dL 3.5-5.0 ALKALINE PHOSPHATASE 64 U/L 40-150 AST 21 U/L 5-34 ALT 29 U/L BILIRUBIN, TOTAL 0.6 mg/dL 0.2-1.2 Nov 09, 2023 09:40 AM [facility] PSA Specimen Type: SERUM No comment entered. Ordering Provider: ROCKY MORENO Report Released Date/Time: Jul 20, 2023 03:40 PM Reporting Lab: [address] [address] Performing Lab: [address] [address] PSA 0.12 ng/mL 0.00-4.00 Nov 09, 2023 09:40 AM [facility] BASIC METABOLIC PANEL (fasting) Specimen Type: SERUM No comment entered. Ordering Provider: ROCKY MORENO Report Released Date/Time: Jul 20, 2023 03:40 PM Reporting Lab: [address] [address] Performing Lab: [address] [address] UREA NITROGEN 14 mg/dL 7-25 GLUCOSE 108 mg/dL H 65-100 SODIUM 138 mmol/L 135-145 POTASSIUM 4.3 mmol/L 3.5-5.0 CHLORIDE 106 mmol/L 100-110 CO2 23 meq/L 20-30 CREATININE, Serum 0.74 mg/dL 0.50-1.40 eGFR(CKD-EPI 2020) >90 mL/min >60 Nov 09, 2023 09:[address] [facility] LIPID PANEL FASTING Specimen Type: SERUM No comment entered. Ordering Provider: ROCKY MORENO Report Released Date/Time: Jul 20, 2023 03:40 PM Reporting Lab: [facility] [address] [facility] [address] Performing Lab: [facility] [address] [facility] [address] CHOLESTEROL 142 mg/dL TRIGLYCERIDE 85 mg/dL 0-150 LDL calculated 79 mg/dL 0-129 CHOL/HDL 3.1 HDL CHOLESTEROL 46 mg/dL 40-60 Social History: Smoking Status (Most current) and Tobacco Use (All prior to encounter date) This section includes the most current, and the historical, smoking and tobacco- related health factors from the [place] facility where the Encounter took place. Current Smoking Status This section includes the most current smoking, or tobacco-related health factor, from the [place] facility where the Encounter took place. Date/Time Current Smoking Status Comment Bri reyes Oct 30, 2022 03:20 PM VA-TOBACCO [facility] Tobacco Use History This section includes a history of the smoking, or tobacco-related health factors, that were collected on or before the date of the Encounter. The data comes from the [place] facility where the Encounter took place. Date/Time Smoking Status/Tobac co Use Comment Facility Oct 30, 2022 03:20 PM VA-TOBACCO QUIT 15 YRS OR MORE [place] [facility] [facility] Jul 31, 2021 09:41 AM VA-TOBACCO FORMER USER [place] [facility] [place] Jul 31, 2021 09:41 AM VA-TOBACCO QUIT 15 YRS OR MORE [place] [facility] [place] [facility] [place] Jun 29, 2020 11:00 AM VA-TOBACCO FORMER USER [place] [facility] Jun 29, 2020 11:00 AM [facility]ACCO [facility]IT [facility] [place] [facility] Feb 10, 2019 10:14 AM VA-TOBACCO FORMER USER [place] [facility] Feb 10, 2019 10:14 AM VA-TOBACCO QUIT 15 YRS OR MORE [place] [facility] [place] [facility] Nov 27, 2017 11:12 AM QUIT TOBACCO USE > 7 YEARS AGO [place] [facility] [place] [facility] [place] Nov 05, 2016 11:01 AM QUIT TOBACCO USE > 7 YEARS AGO [place] [facility] [place] [facility] [place] Sep 17, 2015 01:03 PM QUIT TOBACCO USE > 7 YEARS AGO stopped 20 years ago [facility] [place] [facility] [place] Feb 24, 2005 10:09 AM HISTORY OF SMOKING [place] [facility] [facility] [place] May 28, 2004 08:08 AM QUIT TOBACCO USE > 7 YEARS AGO [place] [facility] [place] [facility] [place] Nov 27, 2003 01:12 PM HISTORY OF SMOKING [place] [facility] [place] [facility] Mar 15, 2003 02:03 PM QUIT TOBACCO USE 1-7 YEARS AGO [place] [facility] [place] [facility] [place] Aug 24, 2002 11:07 AM HISTORY OF SMOKING [place] [facility] [place] [facility] [place] Feb 11, 2002 11:35 AM QUIT TOBACCO USE 1-7 YEARS AGO [place] [facility] [place] [facility] May 21, 2001 01:11 PM HISTORY OF SMOKING quit 5 years ago [place] [facility] [place] [facility] Encounter Notes: All associated encounter notes This section contains the clinical notes associated to the Encounter. Date/Time Encounter Note(s) Provider Source Nov 16, 2023 11:12 AM ADMINISTRATIVE NOT E: LOCAL TITLE: ADMINISTRATIVE RECALL NOTE STANDARD TITLE: ADMINISTRATIVE NOTE DATE OF NOTE: NOV 16, 2023@11:12 ENTRY DATE: NOV 16, 2023@11:12:06 AUTHOR: RUBENS BLAND EXP COSIGNER: URGENCY: STATUS: COMPLETED ADMINISTRATIVE RECALL NOTE Has ADDENDA RTC orders: Unable to contact patient: Attempts to contact: 1st attempt: Left voicemail 2nd attempt: Letter mailed Disposition on Nov 3rd attempt: 4th attempt: /rajesh/ RUBENS BLAND [employer] SOFTWARE DEVELOPER Signed: 11/16/2023 11:12 11/30/2023 ADDENDUM STATUS: COMPLETED RTC orders: Unable to contact patient: Attempts to contact: 1st attempt: Left voicemail 2nd attempt: Letter mailed Disposition on Nov 3rd attempt: LVM 4th attempt: MAILED DISPOSITION 12/14/2023 /yenny BLAND [employer]VANC[employer] SCIENT[employer] SOFTWARE DEVELOPER Signed: 11/30/2023 11:14 RUBENS BLAND [facility] Nov 16, 2023 11:12 AM ADMINISTRATIVE NOT E: LOCAL TITLE: ADMINISTRATIVE NOTE STANDARD TITLE: ADMINISTRATIVE NOTE DATE OF NOTE: NOV 16, 2023@11:12 ENTRY DATE: NOV 16, 2023@11:12:35 AUTHOR: RUBENS BLAND EXP COSIGNER: URGENCY: STATUS: COMPLETED Called and left a voicemail to let them know that the following appointment has been cancelled by clinic: 05/27/2024 with BORASKI/OPTOMETRY. Asked that they call [phone] Ext: [phone] to reschedule. Cancel by clinic letter has been mailed. /yenny BLAND ADVANCED SCIENTIFIC SOFTWARE DEVELOPER Signed: 11/16/2023 11:13 RUBENS BLAND [facility]
--- OUTSIDE RECORDS SUMMARY | 2024-07-29 08:30 | XMS_ITS | Encounter Summary ---
Author Name [facility] [place] [facility] [place] Address [address] [place] [address] Care Team Providers Care Cloth Finishing Range Tender Name Role Phone APOORVA MORENO Primary Care [...] Hare's Name Patient's Relationship to Policy Hare [facility] ([facility]) MEDICARE ADVANTAGE MCR ([facility]) Apr 17, 2013 [id number] Lauren COELHO PATIENT [facility] ([facility]) MEDICARE ADVANTAGE MCR ([facility]) Apr 17, 2013 [id number] Lauren COELHO PATIENT Selected Encounter This section includes the information on record at [place] for the Encounter. Date/Time Encounter Type Encounter Description Reason Pro vider Source Oct 29, 2023 12:00 AM Outpatient Encounter EVENT (HISTORICAL) IHE Encounter Template Text not used by [place] Plan of Treatment: Future Appointments (+ 6 months) and Future Tests (+/- 45 days) The Plan of Treatment section includes future care activities for the patient from all [place] treatmentfacilities. This section includes future appointments and future orders which are active, pending or scheduled. Future Appointments This section includes appointments that were scheduled to occur 6 months from the date of the Encounter, up to a maximum of 20 appointments. The data comes from all [place] treatment facilities. Appointment Date/Time Appointment Type Appointme nt Facility Name Nov 17, 2023 11:30 AM AMBULATORY - MEDICINE [place] [facility] Dec 15, 2023 11:00 AM AMBULATORY - MEDICINE [place] [facility] Feb 11, 2024 02:00 PM AMBULATORY - [facility]ICIN E [place] [facility] Feb 19, 2024 11:00 AM [facility] [place] [facility] Lab Results: +/- 30 days of the encounter This section includes the Chemistry and Hematology Lab Results on record with [place] for the patient. Radiology Reports and Pathology Reports are provided separately, in subsequent sections. Lab Results This section contains the Chemistry/Hematology Results that were resulted 30 days before or 30 daysafter the date of the Encounter. Date/Time Source Result Type Result - Unit Interpretation Reference Range Comment Nov 09, 2023 09:40 AM [facility] TESTOSTERONE, TOTAL Specimen Type: SERUM No comment entered. Ordering Provider: ROCKY MORENO Report Released Date/Time: Jul 20, 2023 03:40 PM Reporting Lab[facility] [address] Performing Lab: [facility] [address] [address] TESTOSTERONE, TOTAL 585.06 ng/dL 220.00-892. 00 Nov 09, 2023 09:40 AM [facility] PSA Specimen Type: SERUM No comment entered. Ordering Provider: ROCKY MORENO Report Released Date/Time: Jul 20, 2023 03:40 PM Reporting [facility] [address] [address] Performing [facility]: [facility] [place] [facility] [address] [facility] [address] PSA 0.12 ng/mL 0.00-4.00 Nov 09, 2023 09:40 AM [facility] LIVER FUNCTION Specimen Type: SERUM No comment entered. Ordering Provider: ROCKY MORENO Report Released Date/Time: Jul 20, 2023 03:40 PM Reporting Lab: [address] [address] Performing Lab: [address] [address] PROTEIN,TOTAL 6.4 g/dL 6.0-8.3 ALBUMIN 3.9 g/dL 3.5-5.0 ALKALINE PHOSPHATASE 64 U/L 40-150 AST 21 U/L 5-34 ALT 29 U/L BILIRUBIN, TOTAL 0.6 mg/dL 0.2-1.2 Nov 09, 2023 09:40 AM [facility] BASIC METABOLIC PANEL (fasting) Specimen Type: SERUM No comment entered. Ordering Provider: ROCKY MORENO Report Released Date/Time: Jul 20, 2023 03:40 PM Reporting Lab: [address] [address] Performing Lab: [address] [address] UREA NITROGEN 14 mg/dL 7-25 GLUCOSE 108 mg/dL H 65-100 SODIUM 138 mmol/L 135-145 POTASSIUM 4.3 mmol/L 3.5-5.0 CHLORIDE 106 mmol/L 100-110 CO2 23 meq/L 20-30 CREATININE, Serum 0.74 mg/dL 0.50-1.40 eGFR(CKD-EPI 2020) >90 mL/min >60 Nov 09, 2023 09:40 AM [facility] LIPID PANEL FASTING Specimen Type: SERUM No comment entered. Ordering Provider: ROCKY MORENO Report Released Date/Time: Jul 20, 2023 03:40 PM Reporting Lab: [address] [address] Performing Lab: [facility] [place] [facility] [address] [facility] [address] CHOLESTEROL 142 mg/dL TRIGLYCERIDE 85 mg/dL 0-150 LDL calculated 79 mg/dL 0-129 CHOL/HDL 3.1 HDL CHOLESTEROL 46 mg/dL 40-60 Social History: Smoking Status (Most current) and Tobacco Use (All prior to encounter date) This section includes the most current, and the historical, smoking and tobacco- related health factors from the [place] facility where the Encounter took place. Current Smoking Status This section includes the most current smoking, or tobacco-related health factor, from the [place] facility where the Encounter took place. Date/Time Current Smoking Status Comment [facility] Oct 30, 2022 03:20 PM VA-TOBACCO QUIT 15 YRS OR MORE [place] [facility] Tobacco Use History This section includes a history of the smoking, or tobacco-related health factors, that were collected on or before the date of the Encounter. The data comes from the [place] facility where the Encounter took place. Date/Time Smoking Status/Tobac co Use Comment [facility] Oct 30, 2022 03:20 PM VA-TOBACCO QUIT 15 YRS OR MORE [place] [facility] Jul 31, 2021 09:41 AM VA-TOBACCO FORMER USER [place] [place] [facility] Jul 31, 2021 09:41 AM VA-TOBACCO QUIT 15 YRS OR MORE [place] [facility] [place] [facility] Jun 29, 2020 11:00 AM VA-TOBACCO FORMER USER [place] [facility] Jun 29, 2020 11:00 AM VA-TOBACCO QUIT 15 YRS OR MORE [place] [place] [facility] Feb 10, 2019 10:14 AM VA-TOBACCO FORMER USER [place] [facility] [facility] Feb 10, 2019 10:14 AM VA-TOBACCO QUIT 15 YRS OR MORE [place] [place] [facility] Nov 27, 2017 11:12 AM QUIT TOBACCO USE > 7 YEARS AGO [facility] [place] [facility] Nov 05, 2016 11:01 AM QUIT TOBACCO USE > 7 YEARS AGO [facility] [place] [facility] Sep 17, 2015 01:03 PM QUIT TOBACCO USE > 7 YEARS AGO stopped 20 years ago [facility] [place] [facility] Feb 24, 2005 10:09 AM HISTORY OF SMOKING [place] [facility] [place] [facility] May 28, 2004 08:08 AM QUIT TOBACCO USE > 7 YEARS AGO [place] [facility] [place] [facility] Nov 27, 2003 01:12 PM HISTORY OF SMOKING [place] [facility] [place] [facility] Mar 15, 2003 02:03 PM QUIT TOBACCO USE 1-7 YEARS AGO [place] [facility] [place] [facility] Aug 24, 2002 11:07 AM HISTORY OF SMOKING [place] [facility] [place] [facility] Feb 11, 2002 11:35 AM QUIT TOBACCO USE 1-7 YEARS AGO [place] [facility] [place] [facility] May 21, 2001 01:11 PM HISTORY OF SMOKING quit 5 years ago [facility] Encounter Notes: All associated encounter notes This section contains the clinical notes associated to the Encounter. Date/Time Encounter Note(s) Provider Source Oct 29, 2023 12:00 AM NONVA NOTE: LOCAL TITLE: NON-VA OUTPATIENT NOTES STANDARD TITLE: NONVA NOTE DATE OF NOTE: OCT 29, 2023 ENTRY DATE: 2023@12:25:27 AUTHOR: BRADEN OLIVA EXP COSIGNER: URGENCY: STATUS: COMPLETED VistA Imaging - Scanned Document SCANNED DOCUMENT SIGNATURE NOT REQUIRED Electronically Filed: 2023 by: BRADEN CLAIRE [facility]
--- OUTSIDE RECORDS SUMMARY | 2024-07-29 08:30 | XMS_ITS | Encounter Summary ---
Author Name [facility] [place] Organization [place] Address [address] [place] [address] Care Team Providers Care Sponge Diver Name Role Phone APOORVA MORENO Primary Care [...] [place] MCR (WNR) MEDICARE ADVANTAGE MCR ([facility]) Apr 17, 2013 [id number] Lauren COELHO PATIENT [facility] ([facility]) MEDICARE ADVANTAGE MCR ([facility]) Apr 17, 2013 [id number] Lauren COELHO PATIENT Selected Encounter This section includes the information on record at [place] for the Encounter. Date/Time Encounter Type Encounter Description Reason Pro vider Source Nov 30, 2023 11:14 AM Outpatient Encounter OPTOMETRY IHE Encounter Template Text not used by [facility] Plan of Treatment: Future Appointments (+ 6 months) and Future Tests (+/- 45 days) The Plan of Treatment section includes future care activities for the patient from all [place] [facility]. This section includes future appointments and future orders which are active, pending or scheduled. Future Appointments This section includes appointments that were scheduled to occur 6 months from the date of the Encounter, up to a maximum of 20 appointments. The data comes from all [place] treatment facilities. Appointment Date/Time Appointment Type Appointme nt Facility Name Dec 15, 2023 11:00 AM AMBULATORY - MEDICINE [facility] Feb 11, 2024 02:00 PM [facility]BUL[facility] Feb 19, 2024 11:00 AM AMBULATORY - MEDICINE [facility] May 05, 2024 02:30 PM AMBULATORY - REHAB MEDICIN E [facility] May 20, 2024 02:30 PM AMBULATORY - REHAB MEDICIN E [facility] Active, Pending, and Scheduled Orders This section includes a listing of several types of active, pending, and scheduled orders, including clinic medications orders, diagnostic test orders, procedure orders and consult orders; where the start date of the order is 45 days before the date of the Encounter or 45 days after the date of theEncounter. The data comes from all [facility]. Test Date/Time Test Type Test Details Facility Name Dec 15, 2023 04:25 PM Consult Order REHAB MEDI CINE/NHM OUTPT Cons [employer] Leader's Choice [facility] Lab Results: +/- 30 days of the encounter This section includes the Chemistry and Hematology Lab Results on record with [place] for the patient. Radiology Reports and Pathology Reports are provided separately, in subsequent sections. Lab Results This section contains the Chemistry/Hematology Results that were resulted 30 days before or 30 daysafter the date of the Encounter. Date/Time Source Result Type Result - Unit Interpretation Reference Range Comment Nov 09, 2023 09:40 AM [facility] TESTOSTERONE, TOTAL Specimen Type: SERUM No comment entered. Ordering Provider: ROCKY MORENO Report Released Date/Time: Jul 20, 2023 03:40 PM Reporting Lab: [facility] [address] [facility] [address] Performing Lab: [facility] [place] [address] [address] TESTOSTERONE, TOTAL 585.06 ng/dL 220.00-892. 00 Nov 09, 2023 09:40 AM [facility] LIVER FUNCTION Specimen Type: SERUM No comment entered. Ordering Provider: ROCKY MORENO Report Released Date/Time: Jul 20, 2023 03:40 PM Reporting Lab: [address] [address] Performing Lab: [address] [address] PROTEIN,TOTAL 6.4 g/dL 6.0-8.3 ALBUMIN 3.9 g/dL 3.5-5.0 ALKALINE PHOSPHATASE 64 U/L 40-150 AST 21 U/L 5-34 ALT 29 U/L BILIRUBIN, TOTAL 0.6 mg/dL 0.2-1.2 Nov 09, 2023 09:40 AM [facility] BASIC METABOLIC PANEL (fasting) Specimen Type: SERUM No comment entered. Ordering Provider: ROCKY MORENO Report Released Date/Time: Jul 20, 2023 03:40 PM Reporting Lab: [address] [address] Performing Lab: [address] [address] UREA NITROGEN 14 mg/dL 7-25 GLUCOSE 108 mg/dL H 65-100 SODIUM 138 mmol/L 135-145 POTASSIUM 4.3 mmol/L 3.5-5.0 CHLORIDE 106 mmol/L 100-110 CO2 23 meq/L 20-30 CREATININE, Serum 0.74 mg/dL 0.50-1.40 eGFR(CKD-EPI 2020) >90 mL/min >60 Nov 09, 2023 09:40 AM [facility] PSA Specimen Type: SERUM No comment entered. Ordering Provider: ROCKY MORENO Report Released Date/Time: Jul 20, 2023 03:40 PM Reporting Lab: [address] [address] Performing Lab: [facility] [place] [place] [facility] [address] [facility] [address] PSA 0.12 ng/mL 0.00-4.00 Nov 09, 2023 09:40 AM [facility] LIPID PANEL FASTING Specimen Type: SERUM No comment entered. Ordering Provider: ROCKY MORENO Report Released Date/Time: Jul 20, 2023 03:40 PM Reporting Lab: [facility] [address] [facility] [address] Performing Lab: [facility] [address] [facility] [address] CHOLESTEROL 142 mg/dL TRIGLYCERIDE 85 mg/dL 0-150 LDL calculated 79 mg/dL 0-129 CHOL/HDL 3.1 HDL CHOLESTEROL 46 mg/dL 40-60 Social History: Smoking Status (Most current) and Tobacco Use (All prior to encounter date) This section includes the most current, and the historical, smoking and tobacco- related health factors from the [place] facility where the Encounter took place. Current Smoking Status This section includes the most current smoking, or tobacco-related health factor, from the [place] facility where the Encounter took place. Date/Time Current Smoking Status Comment [facility] it Nov 17, 2023 11:30 AM VA-TOBACCO FORMER USER [facility] Tobacco Use History This section includes a history of the smoking, or tobacco-related health factors, that were collected on or before the date of the Encounter. The data comes from the [place] facility where the Encounter took place. Date/Time Smoking Status/Tobac co Use Comment Facility Nov 17, 2023 11:30 AM VA-TOBACCO QUIT 15 YRS OR MORE [place] [facility] [place] [facility] Oct 30, 2022 03:20 PM VA-TOBACCO FORMER USER [place] [facility] [place] [facility] Oct 30, 2022 03:20 PM VA-TOBACCO QUIT 15 YRS OR MORE [place] [facility] [place] [facility] Jul 31, 2021 09:41 AM VA-TOBACCO FORMER USER [place] [facility] [place] [facility] Jul 31, 2021 09:41 AM VA-TOBACCO QUIT 15 YRS OR MORE [place] [facility] [place] [facility] Jun 29, 2020 11:00 AM VA-TOBACCO FORMER USER [place] [facility] [place] [place] [facility] Jun 29, 2020 11:00 AM VA-TOBACCO QUIT 15 YRS OR MORE [facility] [place] [facility] Feb 10, 2019 10:14 AM VA-TOBACCO FORMER USER [facility] [place] [facility] Feb 10, 2019 10:14 AM VA-TOBACCO QUIT 15 YRS OR MORE [facility] [place] [place] [facility] Nov 27, 2017 11:12 AM QUIT TOBACCO USE > 7 YEARS AGO [facility] [place] [facility] Nov 05, 2016 11:01 AM QUIT TOBACCO USE > 7 YEARS AGO [facility] [place] [place] [facility] Sep 17, 2015 01:03 PM QUIT TOBACCO USE > 7 YEARS AGO stopped 20 years ago [facility] [place] [place] [facility] Feb 24, 2005 10:09 AM HISTORY OF SMOKING [facility] [place] [facility] May 28, 2004 08:08 AM QUIT TOBACCO USE > 7 YEARS AGO [facility] [place] [facility] Nov 27, 2003 01:12 PM HISTORY OF SMOKING [facility] [place] [facility] Mar 15, 2003 02:03 PM QUIT TOBACCO USE 1-7 YEARS AGO [facility] [place] [place] [facility] Aug 24, 2002 11:07 AM HISTORY OF SMOKING [facility] [place] [facility] Feb 11, 2002 11:35 AM QUIT TOBACCO USE 1-7 YEARS AGO [facility] [place] [place] [facility] May 21, 2001 01:11 PM HISTORY OF SMOKING quit 5 years ago [facility] [place] [facility] Encounter Notes: All associated encounter notes This section contains the clinical notes associated to the Encounter. Date/Time Encounter Note(s) Provider Source Nov 30, 2023 11:14 AM LETTERS: LOCAL TITLE: PATIENT LETTER (B) STANDARD TITLE: LETTERS DATE OF NOTE: NOV 30, 2023@11:14 ENTRY DATE: NOV 30, 2023@11:14:58 AUTHOR: RUBENS BLAND COSIGNER: URGENCY: STATUS: COMPLETED [facility] Toll Free Number [facility] scheduling can be reached at ext. [phone] [facility] Care- ext. [phone] [facility]- ext. [phone] [facility]- ext. [phone] NOV 30, 2023 HANH COELHO [address] [place], [place] [address] Dear HANH COELHO Thank you for choosing the Department [facility] ([place]) [facility] as your primary choice for health care. As a partner in your health care, we are contacting you in writing since we have been unsuccessful in our attempts to reach you to date. We want to assure you we are doing everything possible to schedule Veterans for their [place] medical care appointments. Our records indicate you are due for an appointment in OPTOMETRY. If you would like to be seen, please contact [facility] at ext. [phone] to schedule an appointment. Thank you for your service to our nation, and we look forward to hearing from you soon. Sincerely, [facility] [address] [facility] [address] [place] [address] [place] [address] [facility] [address] [facility] [address] [place] [address] [place] [address] ext. [phone] [facility] [address] [facility] [address] [place] [address] [place] [address] ext. [phone] [place] [place] [facility] [place] [facility]
--- OUTSIDE RECORDS SUMMARY | 2024-07-29 08:30 | XMS_ITS | Encounter Summary ---
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 Date/Time Encounter Type Encounter Description Reason Pro vider Source Nov 17, 2023 03:11 PM Outpatient Encounter PRIMARY CARE/MEDICINE IHE Encounter Template Text not used by [place] Plan of Treatment: Future Appointments (+ 6 months) and Future Tests (+/- 45 days) The Plan of Treatment section includes future care activities for the patient from all [place] [facility]. This section includes future appointments and future orders which are active, pending or scheduled. Future Appointments This section includes appointments that were scheduled to occur 6 months from the date of the Encounter, up to a maximum of 20 appointments. The data comes from all [place] treatment facilities. Appointment Date/Time Appointment Type Appointme nt Facility Name Dec 15, 2023 11:00 AM AMBULATORY - MEDICINE [facility] NTR [place] [facility] Feb 11, 2024 02:00 PM AMBULATORY - REHAB MEDICIN E [place] [facility] Feb 19, 2024 11:00 AM AMBULATORY - MEDICINE [facility] May 05, 2024 02:30 PM AMBULATORY - REHAB MEDICIN E [facility] Active, Pending, and Scheduled Orders This section includes a listing of several types of active, pending, and scheduled orders, including clinic medications orders, diagnostic test orders, procedure orders and consult orders; where the start date of the order is 45 days before the date of the Encounter or 45 days after the date of theEncounter. The data comes from all [facility] facilities. Test Date/Time Test Type Test Details Facility Name Dec 15, 2023 04:25 PM Consult Order REHAB MEDI CINE/NHM OUTPT Cons [employer] Driver's Choice [facility] Lab Results: +/- 30 days of the encounter This section includes the Chemistry and Hematology Lab Results on record with [place] for the patient. Radiology Reports and Pathology Reports are provided separately, in subsequent sections. Lab Results This section contains the Chemistry/Hematology Results that were resulted 30 days before or 30 daysafter the date of the Encounter. Date/Time Source Result Type Result - Unit Interpretation Reference Range Comment Nov 09, 2023 09:40 AM [facility] TESTOSTERONE, TOTAL Specimen Type: SERUM No comment entered. Ordering Provider: ROCKY MORENO Report Released Date/Time: Jul 20, 2023 03:40 PM Reporting Lab: [facility] [address] [facility] [address] Performing Lab: [facility] [address] [facility] [address] TESTOSTERONE, TOTAL 585.06 ng/dL 220.00-892. 00 Nov 09, 2023 09:40 AM [facility] LIVER FUNCTION Specimen Type: SERUM No comment entered. Ordering Provider: ROCKY MORENO Report Released Date/Time: Jul 20, 2023 03:40 PM Reporting Lab: [address] [address] Performing Lab: [address] [address] PROTEIN,TOTAL 6.4 g/dL 6.0-8.3 ALBUMIN 3.9 g/dL 3.5-5.0 ALKALINE PHOSPHATASE 64 U/L 40-150 AST 21 U/L 5-34 ALT 29 U/L BILIRUBIN, TOTAL 0.6 mg/dL 0.2-1.2 Nov 09, 2023 09:40 AM [facility] PSA Specimen Type: SERUM No comment entered. Ordering Provider: ROCKY MORENO Report Released Date/Time: Jul 20, 2023 03:40 PM Reporting Lab: [address] [address] Performing Lab: [address] [address] PSA 0.12 ng/mL 0.00-4.00 Nov 09, 2023 09:40 AM [facility] BASIC METABOLIC PANEL (fasting) Specimen Type: SERUM No comment entered. Ordering Provider: ROCKY MORENO Report Released Date/Time: Jul 20, 2023 03:40 PM Reporting Lab: [address] [address] Performing Lab: [address] [address] UREA NITROGEN 14 mg/dL 7-25 GLUCOSE 108 mg/dL H 65-100 SODIUM 138 mmol/L 135-145 POTASSIUM 4.3 mmol/L 3.5-5.0 CHLORIDE 106 mmol/L 100-110 CO2 23 meq/L 20-30 CREATININE, Serum 0.74 mg/dL 0.50-1.40 eGFR(CKD-EPI 2020) >90 mL/min >60 Nov 09, 2023 09:40 AM [facility] LIPID PANEL FASTING Specimen Type: SERUM No comment entered. Ordering Provider: ROCKY MORENO Report Released Date/Time: Jul 20, 2023 03:40 PM Reporting Lab: [facility] [address] [facility] [address] Performing Lab: [facility] [address] [facility] [address] CHOLESTEROL 142 mg/dL TRIGLYCERIDE 85 mg/dL 0-150 LDL calculated 79 mg/dL 0-129 CHOL/HDL 3.1 HDL CHOLESTEROL 46 mg/dL 40-60 Vital Signs: All taken on the encounter date This section contains inpatient and outpatient Vital Signs collected on the date of the Encounter. Date/Time Temperature Pulse Blood Pressure Respiratory Rate SP02 Pain Height Weight Body Mass Index Source Nov 17, 2023 11:11 AM 98.4 72 136/86 16 98 0 198 31 [facility] Social History: Smoking Status (Most current) and Tobacco Use (All prior to encounter date) This section includes the most current, and the historical, smoking and tobacco- related health factors from the [place] facility where the Encounter took place. Current Smoking Status This section includes the most current smoking, or tobacco-related health factor, from the [place] facility where the Encounter took place. Date/Time Current Smoking Status Comment [facility] it Nov 17, 2023 11:30 AM NE-TOBACCO QUIT 15 YRS OR MORE [facility] Tobacco Use History This section includes a history of the smoking, or tobacco-related health factors, that were collected on or before the date of the Encounter. The data comes from the [place] facility where the Encounter took place. Date/Time Smoking Status/Tobac co Use Comment Facility Nov 17, 2023 11:30 AM NE-TOBACCO QUIT 15 YRS OR [facility] Oct 30, 2022 03:20 PM VA-TOBACCO [facility] Oct 30, 2022 03:20 PM VA-TOBACCO QUIT 15 YRS OR MORE [facility] [place] [facility] Jul 31, 2021 09:41 AM VA-TOBACCO FORMER USER [facility] [place] [facility] Jul 31, 2021 09:41 AM VA-TOBACCO QUIT 15 YRS OR MORE [facility] [place] [facility] Jun 29, 2020 11:00 AM VA-TOBACCO FORMER USER [facility] [place] [facility] Jun 29, 2020 11:00 AM VA-TOBACCO QUIT 15 YRS OR MORE [facility] [place] [facility] Feb 10, 2019 10:14 AM VA-TOBACCO FORMER USER [facility] [place] [facility] Feb 10, 2019 10:14 AM VA-TOBACCO QUIT 15 YRS OR MORE [facility] [place] [facility] Nov 27, 2017 11:12 AM QUIT TOBACCO USE > 7 YEARS AGO [facility] [place] [facility] Nov 05, 2016 11:01 AM QUIT TOBACCO USE > 7 YEARS AGO [facility] [place] [facility] Sep 17, 2015 01:03 PM QUIT TOBACCO USE > 7 YEARS AGO stopped 20 years ago [facility] [place] [place] [facility] Feb 24, 2005 10:09 AM HISTORY OF SMOKING [facility] [place] [facility] May 28, 2004 08:08 AM QUIT TOBACCO USE > 7 YEARS AGO [facility] [place] [place] [facility] Nov 27, 2003 01:12 PM HISTORY OF SMOKING [facility] [place] [facility] Mar 15, 2003 02:03 PM QUIT TOBACCO USE 1-7 YEARS AGO [facility] [place] [facility] Aug 24, 2002 11:07 AM HISTORY OF SMOKING [facility] [place] [facility] Feb 11, 2002 11:35 AM QUIT TOBACCO USE 1-7 YEARS AGO [facility] [place] [place] [facility] May 21, 2001 01:11 PM HISTORY OF SMOKING quit 5 years ago [facility] [place] [facility] Encounter Notes: All associated encounter notes This section contains the clinical notes associated to the Encounter. Date/Time Encounter Note(s) Provider Source Nov 17, 2023 03:11 PM ADMINISTRATIVE NOTE: LOCAL TITLE: FAX/MAIL RECEIVED STANDARD TITLE: ADMINISTRATIVE NOTE DATE OF NOTE: NOV 17, 2023@15:11 ENTRY DATE: NOV 17, 2023@15:11:38 AUTHOR: ARMANDO PENALOZA COSIGNER: URGENCY: STATUS: COMPLETED Document Received On: Nov Document Type: Other: ORTHO NOTES Date of Service: Oct Facility and or Provider: Contact Information: PCP of Record: APOORVA MORENO Next visit with PCP: 02/19/2024 11:00 CWM/NO/PACT 3 Primary Care May keep copies of this document for up to 14 days and send the original for scanning. /rajesh/ ARMANDO WRIGHT Signed: 11/17/2023 15:12 ARMANDO PENALOZA CN[facility]L [facility]N [facility]
--- OUTSIDE RECORDS SUMMARY | 2024-07-29 08:30 | XMS_ITS | Encounter Summary ---
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 Date/Time Encounter Type Encounter Description Reason Pro vider Source Nov 19, 2023 09:00 AM Outpatient Encounter PAIN CLINIC I[facility] Encounter Template Text not used by [facility] Plan of Treatment: Future Appointments (+ 6 months) and Future Tests (+/- 45 days) The Plan of Treatment section includes future care activities for the patient from all [facility]. This section includes future appointments and future orders which are active, pending or scheduled. Future Appointments This section includes appointments that were scheduled to occur 6 months from the date of the Encounter, up to a maximum of 20 appointments. The data comes from all [place] treatment facilities. Appointment Date/Time Appointment Type Appointme nt Facility Name Dec 15, 2023 11:00 AM [facility] Feb 11, 2024 02:00 PM AMBULATORY - [place]ICIN [place] [facility] [place] [facility] Feb 19, 2024 11:00 AM [facility] May 05, 2024 02:30 PM AMBULATORY - [facility] May 20, 2024 02:30 PM AMBULATORY - [facility] Active, Pending, and Scheduled Orders This section includes a listing of several types of active, pending, and scheduled orders, including clinic medications orders, diagnostic test orders, procedure orders and consult orders; where the start date of the order is 45 days before the date of the Encounter or 45 days after the date of theEncounter. The data comes from all [place] treatment facilities. Test Date/Time Test Type Test Details Facility Name Dec 15, 2023 04:25 PM Consult Order REHAB MEDI CINE/[facility] OUTPT Cons Civil Preparedness Coordinator's Choice [facility] Lab Results: +/- 30 days of the encounter This section includes the Chemistry and Hematology Lab Results on record with [facility] for the patient. Radiology Reports and Pathology Reports are provided separately, in subsequent sections. Lab Results This section contains the Chemistry/Hematology Results that were resulted 30 days before or 30 daysafter the date of the Encounter. Date/Time Source Result Type Result - Unit Interpretation Reference Range Comment Nov 09, 2023 09:40 AM [facility] TESTOSTERONE, TOTAL Specimen Type: SERUM No comment entered. Ordering Provider: ROCKY MORENO Report Released Date/Time: Jul 20, 2023 03:40 PM Reporting Lab: [facility] [address] [facility] [address] Performing Lab: [facility] [address] [address] TESTOSTERONE, TOTAL 585.06 ng/dL 220.00-892. 00 Nov 09, 2023 09:40 AM [facility] PSA Specimen Type: SERUM No comment entered. Ordering Provider: ROCKY MORENO Report Released Date/Time: Jul 20, 2023 03:40 PM Reporting Lab: [address] [address] Performing Lab: [address] [address] PSA 0.12 ng/mL 0.00-4.00 Nov 09, 2023 09:40 AM [facility] BASIC METABOLIC PANEL (fasting) Specimen Type: SERUM No comment entered. Ordering Provider: ROCKY MORENO Report Released Date/Time: Jul 20, 2023 03:40 PM Reporting Lab: [address] [address] Performing Lab: [address] [address] UREA NITROGEN 14 mg/dL 7-25 GLUCOSE 108 mg/dL H 65-100 SODIUM 138 mmol/L 135-145 POTASSIUM 4.3 mmol/L 3.5-5.0 CHLORIDE 106 mmol/L 100-110 CO2 23 meq/L 20-30 CREATININE, Serum 0.74 mg/dL 0.50-1.40 eGFR(CKD-EPI 2020) >90 mL/min >60 Nov 09, 2023 09:40 AM [facility] LIVER FUNCTION Specimen Type: SERUM No comment entered. Ordering Provider: ROCKY MORENO Report Released Date/Time: Jul 20, 2023 03:40 PM Reporting Lab: [address] [address] Performing Lab: [address] [address] PROTEIN,TOTAL 6.4 g/dL 6.0-8.3 ALBUMIN 3.9 g/dL 3.5-5.0 ALKALINE PHOSPHATASE 64 U/L 40-150 AST 21 U/L 5-34 ALT 29 U/L BILIRUBIN, TOTAL 0.6 mg/dL 0.2-1.2 Nov 09, 2023 09:40 AM [facility] LIPID PANEL FASTING Specimen Type: SERUM No comment entered. Ordering Provider: ROCKY MORENO Report Released Date/Time: Jul 20, 2023 03:40 PM Reporting Lab: [facility] [address] [facility] [address] Performing Lab: [facility] [address] [facility] [address] CHOLESTEROL 142 mg/dL TRIGLYCERIDE 85 mg/dL 0-150 LDL calculated 79 mg/dL 0-129 CHOL/HDL 3.1 HDL CHOLESTEROL 46 mg/dL 40-60 Social History: Smoking Status (Most current) and Tobacco Use (All prior to encounter date) This section includes the most current, and the historical, smoking and tobacco- related health factors from the ME facility where the Encounter took place. Current Smoking Status This section includes the most current smoking, or tobacco-related health factor, from the [place] facility where the Encounter took place. Date/Time Current Smoking Status Comment [facility] Nov 17, 2023 11:30 AM [facility]TOBACCO [facility] Tobacco Use History This section includes a history of the smoking, or tobacco-related health factors, that were collected on or before the date of the Encounter. The data comes from the ME facility where the Encounter took place. Date/Time Smoking Status/Tobac co Use Comment Facility Nov 17, 2023 11:30 AM VA-TOBACCO QUIT 15 YRS OR MORE [facility] [place] [facility] Oct 30, 2022 03:20 PM VA-TOBACCO FORMER USER [facility] [place] [facility] Oct 30, 2022 03:20 PM VA-TOBACCO QUIT 15 YRS OR MORE [facility] [place] [facility] Jul 31, 2021 09:41 AM VA-TOBACCO FORMER USER [facility] [place] [facility] Jul 31, 2021 09:41 AM VA-TOBACCO QUIT 15 YRS OR MORE [facility] [place] [facility] Jun 29, 2020 11:00 AM VA-TOBACCO FORMER USER [facility] [place] [facility] Jun 29, 2020 11:00 AM VA-TOBACCO QUIT 15 YRS OR MORE [facility] [place] [facility] Feb 10, 2019 10:14 AM VA-TOBACCO FORMER USER [facility] [place] [facility] Feb 10, 2019 10:14 AM VA-TOBACCO QUIT 15 YRS OR MORE [facility] [place] [facility] Nov 27, 2017 11:12 AM QUIT TOBACCO USE > 7 YEARS AGO [facility] [place] [facility] Nov 05, 2016 11:01 AM QUIT TOBACCO USE > 7 YEARS AGO [facility] [place] [facility] Sep 17, 2015 01:03 PM QUIT TOBACCO USE > 7 YEARS AGO stopped 20 years ago [facility] [place] [facility] Feb 24, 2005 10:09 AM HISTORY OF SMOKING [facility] [place] [facility] May 28, 2004 08:08 AM QUIT TOBACCO USE > 7 YEARS AGO [facility] [place] [facility] Nov 27, 2003 01:12 PM HISTORY OF SMOKING [facility] [place] [facility] Mar 15, 2003 02:03 PM QUIT TOBACCO USE 1-7 YEARS AGO [facility] [place] [facility] Aug 24, 2002 11:07 AM HISTORY OF SMOKING [facility] [place] [facility] Feb 11, 2002 11:35 AM QUIT TOBACCO USE 1-7 YEARS AGO [facility] [place] [facility] May 21, 2001 01:11 PM HISTORY OF SMOKING quit 5 years ago [facility] [place] [facility] Encounter Notes: All associated encounter notes This section contains the clinical notes associated to the Encounter. Date/Time Encounter Note(s) Provider Source Nov 19, 2023 09:00 AM LETTERS: LOCAL TITLE: PATIENT LETTER (B) STANDARD TITLE: LETTERS DATE OF NOTE: NOV 19, 2023@09:00 ENTRY DATE: NOV 19, 2023@09:00:44 AUTHOR: BRANDYN ALDRIDGE COSIGNER: URGENCY: STATUS: COMPLETED [facility] Toll Free Number [facility] Care scheduling can be reached at ext. [phone] [facility]- ext. [phone] [facility]- ext. [phone] [facility]- ext. [phone] NOV 19, 2023 HANH COELHO [address] [place], [place] [address] Dear HANH COELHO We would like to assist you in scheduling a PAIN CLINIC CONSULT appointment at the ME. We have been unable to reach you by phone. To schedule this appointment please call us at ext. [phone]. Our booking appointment hours are Thursday through Thursday from 8:00 am to 4:00 pm. Please leave a message if you receive voicemail and let us know a good time and telephone number where we can reach you. If we dont hear back from you within 14 days from the date of this letter we will discontinue the request. If you have already scheduled this appointment, please disregard this letter. Your health is important to us. Sincerely, [facility] [address] [facility] [address] [place] [address] [place] [address] [facility] [address] [facility] [address] [place] [address] [place] [address] ext. [phone] [facility] [address] [facility] [address] [place] [address] [place] [address] ext. [phone] [facility] [address] [place] [address] ext. [phone] BRANDYN ALDRIDGE [facility] [place] [facility]
--- OUTSIDE RECORDS SUMMARY | 2024-07-29 08:30 | XMS_ITS | Encounter Summary ---
Author Name [facility] [place] Organization [place] Address [address] [place] [address] Care Team Providers Care Clay Mixer Name Role Phone ANUPAM LEE Primary Care [...] [place] MCR (WNR) MEDICARE ADVANTAGE MCR ([facility]) Apr 17, 2013 [id number] Lauren COELHO PATIENT [facility] ([facility]) MEDICARE ADVANTAGE MCR ([facility]) Apr 17, 2013 [id number] Lauren COELHO PATIENT Selected Encounter This section includes the information on record at [place] for the Encounter. Date/Time Encounter Type Encounter Description Reason Provider Source Nov 17, 2023 11:30 AM OFFICE O/P EST LOW 20 MIN PRIMARY CARE/MEDICINE ICD-10-CM I11.9 Hypertensive heart disease without heart failure ROCKY LEE IHE Encounter Template Text not used by [place] Assessments - Encounter Diagnoses This section includes the primary and secondary diagnoses documented for the Encounter. Date/Time Primary/Secondary Diagnosis Diagnosis Name Provider Source Nov 17, 2023 12:03 PM PRIMARY Hypertensive heart disease without heart failure ROCKY LEE [facility] Plan of Treatment: Future Appointments (+ 6 months) and Future Tests (+/- 45 days) The Plan of Treatment section includes future care activities for the patient from all [place] [facility] This section includes future appointments and future orders which are active, pending or scheduled. Future Appointments This section includes appointments that were scheduled to occur 6 months from the date of the Encounter, up to a maximum of 20 appointments. The data comes from all [facility] facilities. Appointment Date/Time Appointment Type Appointme nt Facility Name Dec 15, 2023 11:00 AM AMBULATORY - MEDICINE [facility] Feb 11, 2024 02:00 PM AMBULATORY - REHAB MEDICIN E [facility] Feb 19, 2024 11:00 AM [facility] May 05, 2024 02:30 PM AMBULATORY - RE[place] MEDICIN [place] Active, Pending, and Scheduled Orders This section includes a listing of several types of active, pending, and scheduled orders, including clinic medications orders, diagnostic test orders, procedure orders and consult orders; where the start date of the order is 45 days before the date of the Encounter or 45 days after the date of theEncounter. The data comes from all [facility]. Test Date/Time Test Type Test Details Facility Name Dec 15, 2023 04:25 PM Consult Order REHAB MEDI CINE/[facility] OUTPT Cons Training And Development Specialist's Choice [facility] Lab Results: +/- 30 days of the encounter This section includes the Chemistry and Hematology Lab Results on record with [place] for the patient. Radiology Reports and Pathology Reports are provided separately, in subsequent sections. Lab Results This section contains the Chemistry/Hematology Results that were resulted 30 days before or 30 daysafter the date of the Encounter. Date/Time Source Result Type Result - Unit Interpretation Reference Range Comment Nov 09, 2023 09:40 AM [facility] TESTOSTERONE, TOTAL Specimen Type: SERUM No comment entered. Ordering Provider: ROCKY LEE Report Released Date/Time: Jul 20, 2023 03:40 PM Reporting Lab: [address] [address] Performing Lab: [facility] [address] [facility] [address] TESTOSTERONE, TOTAL 585.06 ng/dL 220.00-892. 00 Nov 09, 2023 09:40 AM [facility] PSA Specimen Type: SERUM No comment entered. Ordering Provider: ROCKY LEE Report Released Date/Time: Jul 20, 2023 03:40 PM Reporting Lab: [address] [address] Performing Lab: [address] [address] PSA 0.12 ng/mL 0.00-4.00 Nov 09, 2023 09:40 AM [facility] LIVER FUNCTION Specimen Type: SERUM No comment entered. Ordering Provider: ROCKY LEE Report Released Date/Time: Jul 20, 2023 03:40 PM Reporting Lab: [address] [address] Performing Lab: [address] [address] PROTEIN,TOTAL 6.4 g/dL 6.0-8.3 ALBUMIN 3.9 g/dL 3.5-5.0 ALKALINE PHOSPHATASE 64 U/L 40-150 AST 21 U/L 5-34 ALT 29 U/L BILIRUBIN, TOTAL 0.6 mg/dL 0.2-1.2 Nov 09, 2023 09:40 AM [facility] BASIC METABOLIC PANEL (fasting) Specimen Type: SERUM No comment entered. Ordering Provider: ROCKY LEE Report Released Date/Time: Jul 20, 2023 03:40 PM Reporting Lab: [address] [place] [address] Performing Lab: [facility] [address] [facility] [address] UREA NITROGEN 14 mg/dL 7-25 GLUCOSE 108 mg/dL H 65-100 SODIUM 138 mmol/L 135-145 POTASSIUM 4.3 mmol/L 3.5-5.0 CHLORIDE 106 mmol/L 100-110 CO2 23 meq/L 20-30 CREATININE, Serum 0.74 mg/dL 0.50-1.40 eGFR(CKD-EPI 2020) >90 mL/min >60 Nov 09, 2023 09:40 AM [facility] LIPID PANEL FASTING Specimen Type: SERUM No comment entered. Ordering Provider: ROCKY LEE Report Released Date/Time: Jul 20, 2023 03:40 PM Reporting Lab: [address] [address] Performing Lab: [address] [address] CHOLESTEROL 142 mg/dL TRIGLYCERIDE 85 mg/dL 0-150 [...] 72 136/86 16 98 0 198 31 [facility] Social History: Smoking Status (Most current) [...] Date/Time Current Smoking Status Comment Bri macedo Nov 17, 2023 11:30 AM VA-TOBACCO FORMER USER [facility] Tobacco Use History This section includes a history of the smoking, or tobacco-related health factors, that were collected on or before the date of the Encounter. The data comes from the [place] facility where the Encounter took place. Date/Time Smoking Status/Tobac co Use Comment Facility Nov 17, 2023 11:30 AM VA-TOBACCO QUIT 15 YRS OR MORE [facility] Oct 30, 2022 03:20 PM VA-TOBACCO FORMER USER [facility] Oct 30, 2022 03:20 PM VA-TOBACCO QUIT 15 YRS OR MORE [facility] Jul 31, 2021 09:41 AM VA-TOBACCO FORMER USER [facility] Jul 31, 2021 09:41 AM VA-TOBACCO QUIT 15 YRS OR MORE [facility] Jun 29, 2020 11:00 AM VA-TOBACCO FORMER USER [facility] Jun 29, 2020 11:00 AM VA-TOBACCO QUIT 15 YRS OR MORE [facility] Feb 10, 2019 10:14 AM VA-TOBACCO FORMER USER [facility] Feb 10, 2019 10:14 AM VA-TOBACCO QUIT 15 YRS OR MORE [facility] Nov 27, 2017 11:12 AM QUIT TOBACCO USE > 7 YEARS AGO [facility] Nov 05, 2016 11:01 AM QUIT TOBACCO USE > 7 YEARS AGO [facility] Sep 17, 2015 01:03 PM QUIT TOBACCO USE > 7 YEARS AGO stopped 20 years ago [facility] [place] [facility] Feb 24, 2005 10:09 AM HISTORY OF SMOKING [facility] May 28, 2004 08:08 AM QUIT TOBACCO USE > 7 YEARS AGO [facility] Nov 27, 2003 01:12 PM HISTORY OF SMOKING [facility] Mar 15, 2003 02:03 PM QUIT TOBACCO USE 1-7 YEARS AGO [facility] Aug 24, 2002 11:07 AM HISTORY OF SMOKING [facility] Feb 11, 2002 11:35 AM QUIT TOBACCO USE 1-7 YEARS AGO [facility] May 21, 2001 01:11 PM HISTORY OF SMOKING quit 5 years ago [facility] Encounter Notes: All associated encounter notes This section contains the clinical notes associated to the Encounter. Date/Time Encounter Note(s) Provider Source Nov 17, 2023 11:42 AM PHYSICIAN CLASSIFICATIONS OFFICER CC/CM NOTE: LOCAL TITLE: RAMIREZ NOTE STANDARD TITLE: PHYSICIAN CLASSIFICATIONS OFFICER CC/CM NOTE DATE OF NOTE: NOV 17, 2023@11:42 ENTRY DATE: NOV 17, 2023@11:42:36 AUTHOR: ANUPAM LEE COSIGNER: URGENCY: STATUS: COMPLETED CC/HPI/A/P: 77 year old MALE here in follow-up for; helene Francisco now, on [place], he would like thru [facility]. We enter a va pain consult here and I will have records scanned in. asthma, rare bronchospasm when he works outdoors, he would like albuterol mailed.; Done. Htn, near goal. he notes a trace of pedal edema and asks if we can reduce amlodipine 10mg daily to 7.5 mg daily. We discuss filling this with 3x 2.5 mg tabs daily for mail. He will monitor BP and inform me is this climbs significantly. 3 m f/u. Review of systems: Patient reports no changes from [place]ual [place] [facility] Health[place], in meds or any admissions. Active problems - Computerized Problem List is the source for the followin. Exposure to potentially hazardous substance Connect Snomed Code to ICD 10 Code refer to note dated 07/20/23 2. History of implantation of penile prosthesis 3. Cancer of prostate 4. Sciatica 5. Benign essential hypertension (SNOMED CT 4023450) 6. Hypogonadism 7. Screening for Malignant Neoplasms of colon No polyps or inflammatory mucosal changes Minimal scattered diverticulosis throughout the entire colon FU in 10 years if asymptomatic - 2021 8. Hearing loss * 9. Tinnitus * 10. Chronic sinusitis 11. Impaired FASTING Glucose 12. Hyperlipidemia * 13. Allergic rhinitis * 14. Diverticulitis, Colonic * 15. Hypertrophy (Benign) of Prostate without Urinary obstruction TURP 10/2101 [facility]. 16. GERD * 17. Insomnia * 18. Herpes Genitalis h/o genital herpes -- no recurrence in several years (active from 1979 - 1984) 19. DIAPHRAGMATIC HERNIA 20. CALCULUS OF KIDNEY 21. former smoker SERVICE CONNECTED % - 30 VA and Non VA meds were reconciled with the patient who left with a corrected copy. See medication page for details. Active and Recently Outpatient Medications (excluding Supplies): Active Outpatient Medications Status 1) AMLODIPINE BESYLATE 10MG TAB TAKE ONE TABLET BY MOUTH ACTIVE ONCE DAILY FOR BLOOD PRESSURE/HEART, DO NOT TAKE WITH GRAPEFRUIT JUICE 2) ATORVASTATIN CALCIUM 40MG TAB TAKE ONE-HALF TABLET BY ACTIVE (S) MOUTH ONCE DAILY FOR CHOLESTEROL REPLACES SIMVASTATIN. 3) LATANOPROST 0.005% OPH SOLN INSTILL 1 DROP INTO THE ACTIVE LEFT EYE AT BEDTIME TO REDUCE PRESSURE IN THE EYE 4) TESTOSTERONE (EQV-ANDROGEL) 1% 5GM GEL APPLY 1 PACKET ACTIVE TOPICALLY ONCE DAILY TO SHOULDER. RUB IN UNTIL DRY, THEN WASH HANDS WITH SOAP AND WATER 5) ZOLPIDEM TARTRATE 10MG TAB TAKE ONE TABLET BY MOUTH ACTIVE AT BEDTIME FOR SLEEP Active Non-VA Medications Status 1) Non-VA ASPIRIN 81MG EC TAB 81MG BY MOUTH DAILY ACTIVE 2) Non-VA LABETALOL HCL 100MG TAB 100MG BY MOUTH TWICE ACTIVE DAILY 7 Total Medications 98.4 F [36.9 C] (11/17/2023 11:11) 72 (11/17/2023 11:11) 16 (11/17/2023 11:11) 136/86 (11/17/2023 11:11) 0 (11/17/2023 11:11) 67 in [170.2 cm] (07/20/2023 15:03) 198 lb [89.81 kg] (11/17/2023 11:11) BMI: 31.1 Neuro: Alert and oriented times three, grossly nonfocal, nasolabial folds intact. Recent labs reviewed with patient today:yes RHS Screen: RHS Screen Environmental Check Upon inquiry, the individual reports that the environment is safe to proceed. Informed Consent to Screen and Document The individual consents to proceed with screening. The individual consents to documentation of responses. PRIMARY SCREEN: In the past 12 months, how often did a current or former intimate partner (e.g., boyfriend, girlfriend, , , sexual partner): 1. Scream or curse at you Never 2. Insult or talk down to you Never 3. Threaten you with harm Never 4. Physically hurt you Never 5. Force or pressure you to have sexual contact against your will, or when you were unable to say no Never ?? The HITS tool (items 1-4 above) is [place] copyright protected by Claudy Simmons MD, and the user has full rights to use it throughout the [place] system. PRIMARY SCREEN RESULT: The Primary Screen is NEGATIVE. The individual answered never to all forms of IPV above (i.e., answered never to all 5 items) The individual accepts education and/or resources: Other: EDUCATION: Other: /rajesh/ Anupam Lee PA-C STAFF PHYSICIAN CLASSIFICATIONS OFFICER CC/CM Signed: 11/17/2023 12:03 ANUPAM LEE [facility] Nov 17, 2023 11:12 AM PREVENTIVE MEDICINE NURSING NOTE: LOCAL TITLE: CLINICAL REMINDERS/NURSING STANDARD TITLE: PREVENTIVE MEDICINE NURSING NOTE DATE OF NOTE: NOV 17, 2023@11:12 ENTRY DATE: NOV 17, 2023@11:12:16 AUTHOR: GISSELL ALVARADO: URGENCY: STATUS: COMPLETED Homelessness/Food Insecurity Screen: In the past 2 months, have you been living in stable housing that you own, rent, or stay in as part of a household? Yes - Living in stable housing. Are you worried or concerned that in the next 2 months you may NOT have stable housing that you own, rent, or stay in as part of a household? No - Not worried about housing near future [facility] reports the following: Within the past 12 months, you worried whether your food would run out before you got money to buy more. Never true Within the past 12 months, the food you bought just didn't last and you didn't have money to get more. Never true Depression Screening: Perform PHQ-2 A PHQ-2 screen was performed. The score was 0 which is a negative screen for depression. Over the past two weeks, how often have you been bothered by the following problems? 1. Little interest or pleasure in doing things Not at all 2. Feeling down, depressed, or hopeless Not at all Tobacco Use Screening: The patient is a former tobacco user. The patient quit fifteen or more years ago. Alcohol Use Screen (AUDIT-C): Alcohol Screen: SCREEN FOR ALCOHOL (AUDIT-C) An alcohol screening test (AUDIT-C) was negative (score=1). 1. How often did you have a drink containing alcohol in the past year? Consider a drink to be a 12 ounce can or bottle of regular beer, 8 ounces of malt liquor, a 5 ounce glass of table wine, or a 1.5 ounce shot of liquor (like scotch, gin, or vodka). Monthly or less 2. How many drinks containing alcohol did you have on a typical day when you were drinking in the past year? Zero drinks 3. How often did you have six or more drinks on one occasion in the past year? Never /es/ GISSELL ALVARADO LPN Signed: 11/17/2023 11:14 GISSELL ALVARADO [facility]
--- OUTSIDE RECORDS SUMMARY | 2024-07-29 08:31 | XMS_ITS | Encounter Summary ---
Author Name [place] Organization [place] Address [address] [place] [address] Care Team Providers Care Agriculture Professor Name Role Phone APOORVA MORENO Primary Care [...] Hare's Name Patient's Relationship to Policy Hare [facility]) MEDICARE ADVANTAGE MCR ([facility]) Apr 17, 2013 [id number] Lauren COELHO PATIENT [facility] ([facility]) MEDICARE ADVANTAGE MCR ([facility]) Apr 17, 2013 [id number] Lauren COELHO PATIENT Selected Encounter This section includes the information on record at [place] for the Encounter. Date/Time Encounter Type Encounter Description Reason Pro vider Source Feb 11, 2024 02:47 PM Outpatient Encounter EVENT (HISTORICAL) IHE Encounter Template Text not used by [place] Plan of Treatment: Future Appointments (+ 6 months) and Future Tests (+/- 45 days) The Plan of Treatment section includes future care activities for the patient from [facility] [place] [facility]. This section includes future appointments and future orders which are active, pending or scheduled. Future Appointments This section includes appointments that were scheduled to occur 6 months from the date of the Encounter, up to a maximum of 20 appointments. The data comes from all [facility] facilities. Appointment Date/Time Appointment Type Appointme nt Facility Name Feb 19, 2024 11:00 AM AMBULATORY - MEDICINE [place] [facility] [place] [facility] May 05, 2024 02:30 PM AMBULATORY - RE[facility]AB MEDICIN [facility] May 20, 2024 02:30 PM AMBULATORY REHAB [facility] Jun 10, 2024 02:00 PM [facility] Jun 16, 2024 02:30 PM [facility]ORY [facility] Jun 21, 2024 01:00 PM AMBULATORY - MEDICINE [place] [facility] [place] [facility] Jun 21, 2024 02:00 PM AMBULATORY MEDICINE [place] [facility] [place] [facility] Jul 19, 2024 10:00 AM AMBULATORY - MEDICINE [place] [facility] [place] [facility] Aug 12, 2024 09:00 AM AMBULATORY - MEDICINE [facility] [place] [facility] Aug 12, 2024 09:30 AM AMBULATORY MEDICINE [facility] [place] [facility] Aug 12, 2024 10:00 AM AMBULATORY MEDICINE [facility] [place] [facility] Lab Results: +/- 30 days of the encounter This section includes the Chemistry and Hematology Lab Results on record with [place] for the patient. Radiology Reports and Pathology Reports are provided separately, in subsequent sections. Lab Results This section contains the Chemistry/Hematology Results that were resulted 30 days before or 30 daysafter the date of the Encounter. Date/Time Source Result Type Result - Unit Interpretation Reference Range Comment Feb 16, 2024 12:12 PM [facility] [place] [facility] PSA Specimen Type: SERUM No comment entered. Ordering Provider: ROCKY MORENO Report Released Date/Time: Nov 17, 2023 11:49 AM Reporting Lab: [place] [facility] [place] [address] [address] Performing Lab: [facility] [address] [facility] [address] PSA 0.14 ng/mL 0.00-4.00 Feb 16, 2024 12:12 PM [facility] LIVER FUNCTION Specimen Type: SERUM No comment entered. Ordering Provider: ROCKY MORENO Report Released Date/Time: Nov 17, 2023 11:49 AM Reporting Lab: [facility] [address] [facility] [address] Performing Lab: [address] [address] PROTEIN,TOTAL 6.8 g/dL 6.0-8.3 ALBUMIN 4.2 g/dL 3.5-5.0 ALKALINE PHOSPHATASE 63 U/L 40-150 AST 25 U/L 5-34 ALT 24 U/L BILIRUBIN, TOTAL 1.1 mg/dL 0.2-1.2 Feb 16, 2024 12:12 PM [facility] BASIC METABOLIC PANEL (fasting) Specimen Type: SERUM No comment entered. Ordering Provider: ROCKY MORENO Report Released Date/Time: Nov 17, 2023 11:49 AM Reporting Lab: [address] [address] Performing Lab: [address] [address] UREA NITROGEN 18 mg/dL 7-25 GLUCOSE 94 mg/dL 65-100 SODIUM 141 mmol/L 135-145 POTASSIUM 4.1 mmol/L 3.5-5.0 CHLORIDE 109 mmol/L 100-110 CO2 24 meq/L 20-30 CREATININE, Serum 0.77 mg/dL 0.50-1.40 eGFR(CKD-EPI 2020) >90 mL/min >60 Feb 16, 2024 12:12 PM [facility] LIPID PANEL FASTING Specimen Type: SERUM No comment entered. Ordering Provider: ROCKY MORENO Report Released Date/Time: Nov 17, 2023 11:49 AM Reporting Lab: [address] [address] Performing Lab: [facility] [place] [facility] [address] [facility] [address] CHOLESTEROL 146 mg/dL TRIGLYCERIDE 96 mg/dL 0-150 LDL calculated 80 mg/dL 0-129 CHOL/HDL 3.1 HDL CHOLESTEROL 47 mg/dL 40-60 Vital Signs: All taken on the encounter date This section contains inpatient and outpatient Vital Signs collected on the date of the Encounter. Date/Time Temperature Pulse Blood Pressure Respiratory Rate SP02 Pain Height Weight Body Mass Index Source Feb 11, 2024 02:06 PM 150/70 5 [facility] [place] [facility] Feb 11, 2024 01:55 PM 150/70 5 [facility] [place] [facility] Social History: Smoking Status (Most current) and Tobacco Use (All prior to encounter date) This section includes the most current, and the historical, smoking and tobacco- related health factors from the [place] facility where the Encounter took place. Current Smoking Status This section includes the most current smoking, or tobacco-related health factor, from the [place] facility where the Encounter took place. Date/Time Current Smoking Status Comment [facility] Nov 17, 2023 11:30 AM VA-TOBACCO FORMER USER [place] [facility] [place] [facility] Tobacco Use History This section includes a history of the smoking, or tobacco-related health factors, that were collected on or before the date of the Encounter. The data comes from the [place] facility where the Encounter took place. Date/Time Smoking Status/Tobac co Use Comment Facility Nov 17, 2023 11:30 AM VA-TOBACCO QUIT 15 YRS OR MORE [facility] [place] [facility] Oct 30, 2022 03:20 PM VA-TOBACCO FORMER USER [facility] [place] [facility] Oct 30, 2022 03:20 PM VA-TOBACCO QUIT 15 YRS OR MORE [facility] [place] [facility] Jul 31, 2021 09:41 AM VA-TOBACCO FORMER USER [facility] [place] [facility] Jul 31, 2021 09:41 AM VA-TOBACCO QUIT 15 YRS OR MORE [facility] [place] [facility] Jun 29, 2020 11:00 AM VA-TOBACCO FORMER USER [facility] [place] [facility] Jun 29, 2020 11:00 AM VA-TOBACCO QUIT 15 YRS OR MORE [facility] [place] [facility] Feb 10, 2019 10:14 AM VA-TOBACCO FORMER USER [facility] [place] [facility] Feb 10, 2019 10:14 AM VA-TOBACCO QUIT 15 YRS OR MORE [facility] [place] [facility] Nov 27, 2017 11:12 AM QUIT TOBACCO USE > 7 YEARS AGO [facility] [place] [facility] Nov 05, 2016 11:01 AM QUIT TOBACCO USE > 7 YEARS AGO [facility] [place] [facility] Sep 17, 2015 01:03 PM QUIT TOBACCO USE > 7 YEARS AGO stopped 20 years ago [facility] [place] [facility] Feb 24, 2005 10:09 AM HISTORY OF SMOKING [facility] [place] [facility] May 28, 2004 08:08 AM QUIT TOBACCO USE > 7 YEARS AGO [facility] [place] [facility] Nov 27, 2003 01:12 PM HISTORY OF SMOKING [facility] [place] [facility] Mar 15, 2003 02:03 PM QUIT TOBACCO USE 1-7 YEARS AGO [facility] [place] [facility] Aug 24, 2002 11:07 AM HISTORY OF SMOKING [facility] [place] [facility] Feb 11, 2002 11:35 AM QUIT TOBACCO USE 1-7 YEARS AGO [facility] [place] [facility] May 21, 2001 01:11 PM HISTORY OF SMOKING quit 5 years ago [facility] [place] [facility]
--- OUTSIDE RECORDS SUMMARY | 2024-07-29 08:31 | XMS_ITS | Encounter Summary ---
Author Name [facility] [place] Organization [place] Address [address] [place] [address] Care Team Providers Care Warp Tester Name Role Phone APOORVA MORENO Primary Care [...] [facility] [place] MEDICARE ADVANTAGE MCR ([facility]) Apr 17, 2013 [id number] Lauren COELHO PATIENT [facility] ([facility]) MEDICARE ADVANTAGE MCR ([facility]) Apr 17, 2013 [id number] Lauren COELHO PATIENT Selected Encounter This section includes the information on record at [place] for the Encounter. Date/Time Encounter Type Encounter Description Reason Pro vider Source Feb 11, 2024 11:48 AM Outpatient Encounter PAIN CLINIC IHE Encounter Template Text not used by [facility] Plan of Treatment: Future Appointments (+ 6 months) and Future Tests (+/- 45 days) The Plan of Treatment section includes future care activities for the patient from all [place] [facility] This section includes future appointments and future orders which are active, pending or scheduled. Future Appointments This section includes appointments that were scheduled to occur 6 months from the date of the Encounter, up to a maximum of 20 appointments. The data comes from all [place] treatment facilities. Appointment Date/Time Appointment Type Appointme nt Facility Name Feb 19, 2024 11:00 AM AMBULATORY - MEDICINE [place] [facility] [place] [facility] May 05, 2024 02:30 PM AMBULATORY - REHAB MEDICIN [facility] May 20, 2024 02:30 PM AMBULATORY REHAB [facility] Jun 10, 2024 02:00 PM [facility] Jun 16, 2024 02:30 PM AMBULATORY - REHAB [facility] Jun 21, 2024 01:00 PM AMBULATORY - MEDICINE [place] [facility] [place] [facility] Jun 21, 2024 02:00 PM AMBULATORY - MEDICINE [place] [facility] [place] [facility] Jul 19, 2024 10:00 AM AMBULATORY - MEDICINE [place] [facility] [place] [facility] Aug 12, 2024 09:00 AM AMBULATORY - MEDICINE [facility] [place] [facility] Aug 12, 2024 09:30 AM AMBULATORY - MEDICINE [facility] [place] [facility] Aug 12, 2024 10:00 AM AMBULATORY - MEDICINE [facility] [place] [facility] Lab Results: +/- 30 days of the encounter This section includes the Chemistry and Hematology Lab Results on record with [place] for the patient. Radiology Reports and Pathology Reports are provided separately, in subsequent sections. Lab Results This section contains the Chemistry/Hematology Results that were resulted 30 days before or 30 daysafter the date of the Encounter. Date/Time Source Result Type Result - Unit Interpretation Reference Range Comment Feb 16, 2024 12:12 PM [place] [facility] [place] [facility] PSA Specimen Type: SERUM No comment entered. Ordering Provider: ROCKY MORENO Report Released Date/Time: Nov 17, 2023 11:49 AM Reporting Lab: [facility] [place] [address] [address] Performing Lab: [place] [facility] [address] [facility] [address] PSA 0.14 ng/mL 0.00-4.00 Feb 16, 2024 12:12 PM [facility] LIVER FUNCTION Specimen Type: SERUM No comment entered. Ordering Provider: ROCKY MORENO Report Released Date/Time: Nov 17, 2023 11:49 AM Reporting Lab: [facility] [address] [facility] [address] Performing Lab: [address] [address] PROTEIN,TOTAL 6.8 g/dL 6.0-8.3 ALBUMIN 4.2 g/dL 3.5-5.0 ALKALINE PHOSPHATASE 63 U/L 40-150 AST 25 U/L 5-34 ALT 24 U/L BILIRUBIN, TOTAL 1.1 mg/dL 0.2-1.2 Feb 16, 2024 12:12 PM [facility] BASIC METABOLIC PANEL (fasting) Specimen Type: SERUM No comment entered. Ordering Provider: ROCKY MORENO Report Released Date/Time: Nov 17, 2023 11:49 AM Reporting Lab: [address] [address] Performing Lab: [address] [address] UREA NITROGEN 18 mg/dL 7-25 GLUCOSE 94 mg/dL 65-100 SODIUM 141 mmol/L 135-145 POTASSIUM 4.1 mmol/L 3.5-5.0 CHLORIDE 109 mmol/L 100-110 CO2 24 meq/L 20-30 CREATININE, Serum 0.77 mg/dL 0.50-1.40 eGFR(CKD-EPI 2020) >90 mL/min >60 Feb 16, 2024 12:12 PM [facility] LIPID PANEL FASTING Specimen Type: SERUM No comment entered. Ordering Provider: ROCKY MORENO Report Released Date/Time: Nov 17, 2023 11:49 AM Reporting Lab: [address] [address] Performing Lab: [facility] [place] [facility] [address] [facility] [address] CHOLESTEROL 146 mg/dL TRIGLYCERIDE 96 mg/dL 0-150 [...] 150/70 5 [place] [facility] [place] [facility] Feb 11, 2024 01:55 PM 150/70 5 [place] [facility] [place] [facility] Social History: Smoking Status (Most current) and Tobacco Use (All prior to encounter date) This section includes the most current, and the historical, smoking and tobacco- related health factors from the [place] facility where the Encounter took place. Current Smoking Status This section includes the most current smoking, or tobacco-related health factor, from the [place] facility where the Encounter took place. Date/Time Current Smoking Status Comment [facility] it Nov 17, 2023 11:30 AM VA-TOBACCO FORMER USER [place] [facility] [place] [facility] Tobacco Use History This section includes a history of the smoking, or tobacco-related health factors, that were collected on or before the date of the Encounter. The data comes from the [place] facility where the Encounter took place. Date/Time Smoking Status/Tobac co Use Comment Facility Nov 17, 2023 11:30 AM VA-TOBACCO QUIT 15 YRS OR MORE [place] [facility] [place] [facility] Oct 30, 2022 03:20 PM VA-TOBACCO FORMER USER VA [facility] [place] [facility] Oct 30, 2022 03:20 PM VA-TOBACCO QUIT 15 YRS OR MORE [facility] [place] [facility] Jul 31, 2021 09:41 AM VA-TOBACCO FORMER USER VA [facility] [place] [facility] Jul 31, 2021 09:41 AM VA-TOBACCO QUIT 15 YRS OR MORE [facility] [place] [facility] Jun 29, 2020 11:00 AM VA-TOBACCO FORMER USER [place] [facility] [place] [facility] Jun 29, 2020 11:00 AM VA-TOBACCO QUIT 15 YRS OR MORE [place] [facility] [place] [facility] Feb 10, 2019 10:14 AM VA-TOBACCO FORMER USER [place] [facility] [place] [facility] Feb 10, 2019 10:14 AM VA-TOBACCO QUIT 15 YRS OR MORE [facility] [place] [facility] Nov 27, 2017 11:12 AM QUIT TOBACCO USE > 7 YEARS AGO [facility] [place] [facility] Nov 05, 2016 11:01 AM QUIT TOBACCO USE > 7 YEARS AGO [facility] [place] [facility] Sep 17, 2015 01:03 PM QUIT TOBACCO USE > 7 YEARS AGO stopped 20 years ago [facility] [place] [facility] Feb 24, 2005 10:09 AM HISTORY OF SMOKING [facility] [place] [facility] May 28, 2004 08:08 AM QUIT TOBACCO USE > 7 YEARS AGO [place] [facility] [place] [facility] Nov 27, 2003 01:12 PM HISTORY OF SMOKING [place] [facility] [place] [facility] Mar 15, 2003 02:03 PM QUIT TOBACCO USE 1-7 YEARS AGO [facility] [place] [facility] Aug 24, 2002 11:07 AM HISTORY OF SMOKING [place] [facility] [place] [facility] Feb 11, 2002 11:35 AM QUIT TOBACCO USE 1-7 YEARS AGO [place] [facility] [place] [facility] May 21, 2001 01:11 PM HISTORY OF SMOKING quit 5 years ago [place] [facility] [place] [facility] Encounter Notes: All associated encounter notes This section contains the clinical notes associated to the Encounter. Date/Time Encounter Note(s) Provider Source Feb 12, 2024 01:43 PM ADDENDUM: LOCAL TITLE: Addendum STANDARD TITLE: ADDENDUM DATE OF NOTE: FEB 12, 2024@13:43:54 ENTRY DATE: FEB 12, 2024@13:43:55 AUTHOR: BRANDYN ALDRIDGE COSIGNER: URGENCY: STATUS: COMPLETED VET STOPPED BY WINDOW STATING HE NO LONGER WANTS APPT. RTC DISPOSIITONED PID 02/12/2024. /yenny ALDRIDGE [employer] Signed: 02/12/2024 13:44 Receipt Acknowledged By: 02/12/2024 14:10 /es/ ANITA HOPKINS CLINICAL PHARMACIST PRACTITIONER, PAIN ====== --- Original Document --- 02/11/24 TELEPHONE NOTE/SPECIALTY CLINIC: Call attempt to [phone] was made to remind vet that they have a FTF appt with the Pain clinic on 02/12/2024 1030. No answer, lvm. Location was confirmed. /yenny HENRIQUEZ [employer] Signed: 02/11/2024 11:51 BRANDYN ALDRIDGE [facility] Feb 11, 2024 11:48 AM TELEPHONE ENCOUNTER NOTE: LOCAL TITLE: TELEPHONE NOTE/SPECIALTY CLINIC STANDARD TITLE: TELEPHONE ENCOUNTER NOTE DATE OF NOTE: FEB 11, 2024@11:48 ENTRY DATE: FEB 11, 2024@11:48:06 AUTHOR: VENICE HENRIQUEZ EXP COSIGNER: URGENCY: STATUS: COMPLETED TELEPHONE NOTE/SPECIALTY CLINIC Has ADDENDA Call attempt to [phone] was made to remind vet that they have a FTF appt with the Pain clinic on 02/12/2024 1030. No answer, lvm. Location was confirmed. /yenny HENRIQUEZ [employer] Signed: 02/11/2024 11:51 02/12/2024 ADDENDUM STATUS: COMPLETED VET STOPPED BY WINDOW STATING HE NO LONGER WANTS APPT. RTC DISPOSIITONED PID 02/12/2024. /rajesh/ BRANDYN ALDRIDGE [employer] Signed: 02/12/2024 13:44 Receipt Acknowledged By: * AWAITING SIGNATURE * ANITA HOPKINS [facility]
--- OUTSIDE RECORDS SUMMARY | 2024-07-29 08:31 | XMS_ITS | Encounter Summary ---
Author Name [place] Organization [place] Address [address] [place] [address] Care Team Providers Care Cs Associate Name Role Phone APOORVA MORENO Primary Care [...] Hare's Name Patient's Relationship to Policy Hare [facility] ([facility]) MEDICARE ADVANTAGE MCR ([facility]) Apr 17, 2013 [id number] Lauren COELHO PATIENT [facility] ([facility]) MEDICARE ADVANTAGE MCR ([facility]) Apr 17, 2013 [id number] Lauren COELHO PATIENT Selected Encounter This section includes the information on record at [place] for the Encounter. Date/Time Encounter Type Encounter Description Reason Pro vider Source Dec 14, 2023 12:01 PM Outpatient Encounter PAIN CLINIC IHE Encounter Template Text not used by VA Plan of Treatment: Future Appointments (+ 6 months) and Future Tests (+/- 45 days) The Plan of Treatment section includes future care activities for the patient from [facility] [place] [facility]. This section includes future appointments and future orders which are active, pending or scheduled. Future Appointments This section includes appointments that were scheduled to occur 6 months from the date of the Encounter, up to a maximum of 20 appointments. The data comes from all [facility]. Appointment Date/Time Appointment Type Appointme nt Facility Name Dec 15, 2023 11:00 AM AMBULATORY - MEDICINE [facility] Feb 11, 2024 02:00 PM AMBULATORY - REHAB MEDICIN E [facility] Feb 19, 2024 11:00 AM AMBULATORY - MEDICINE [facility] May 05, 2024 02:30 PM AMBULATORY - REHAB MEDICIN [place] May 20, 2024 02:30 PM AMBULATORY - REHAB MEDICIN [place] Jun 10, 2024 02:00 PM AMBULATORY - REHAB [facility] Active, Pending, and Scheduled Orders This section includes a listing of several types of active, pending, and scheduled orders, including clinic medications orders, diagnostic test orders, procedure orders and consult orders; where the start date of the order is 45 days before the date of the Encounter or 45 days after the date of theEncounter. The data comes from all [facility]. Test Date/Time Test Type Test Details Facility Name Dec 15, 2023 04:25 PM Consult Order REHAB MEDI CINE/NHM OUTPT Cons Beauty Operator's Choice [facility] Social History: Smoking Status (Most current) and Tobacco Use (All prior to encounter date) This section includes the most current, and the historical, smoking and tobacco- related health factors from the [place] facility where the Encounter took place. Current Smoking Status This section includes the most current smoking, or tobacco-related health factor, from the [place] facility where the Encounter took place. Date/Time Current Smoking Status Comment Bri ity Nov 17, 2023 11:[address] [place]-TOBACCO QUIT 15 YRS OR MORE [facility] Tobacco Use History This section includes a history of the smoking, or tobacco-related health factors, that were collected on or before the date of the Encounter. The data comes from the [place] facility where the Encounter took place. Date/Time Smoking Status/Tobac co Use Comment Facility Nov 17, 2023 11:30 AM VA-TOBACCO QUIT 15 YRS OR MORE [facility] [place] [facility] Oct 30, 2022 03:20 PM VA-TOBACCO FORMER USER [place] [facility] [place] [facility] Oct 30, 2022 03:20 PM VA-TOBACCO QUIT 15 YRS OR MORE [facility] [place] [facility] Jul 31, 2021 09:41 AM VA-TOBACCO FORMER USER [facility] [place] [facility] Jul 31, 2021 09:41 AM VA-TOBACCO QUIT 15 YRS OR MORE [place] [facility] [place] [facility] Jun 29, 2020 11:00 AM VA-TOBACCO FORMER USER [place] [facility] [place] [facility] Jun 29, 2020 11:00 AM VA-TOBACCO QUIT 15 YRS OR MORE [place] [facility] [place] [facility] Feb 10, 2019 10:14 AM VA-TOBACCO FORMER USER [facility] [place] [facility] Feb 10, 2019 10:14 AM VA-TOBACCO QUIT 15 YRS OR MORE [facility] [place] [facility] Nov 27, 2017 11:12 AM QUIT TOBACCO USE > 7 YEARS AGO [facility] [place] [facility] Nov 05, 2016 11:01 AM QUIT TOBACCO USE > 7 YEARS AGO [facility] [place] [facility] Sep 17, 2015 01:03 PM QUIT TOBACCO USE > 7 YEARS AGO stopped 20 years ago [facility] [place] [facility] Feb 24, 2005 10:09 AM HISTORY OF SMOKING [facility] [place] [facility] May 28, 2004 08:08 AM QUIT TOBACCO USE > 7 YEARS AGO [facility] [place] [facility] Nov 27, 2003 01:12 PM HISTORY OF SMOKING [facility] [place] [facility] Mar 15, 2003 02:03 PM QUIT TOBACCO USE 1-7 YEARS AGO [facility] [place] [facility] Aug 24, 2002 11:07 AM HISTORY OF SMOKING [facility] [place] [facility] Feb 11, 2002 11:35 AM QUIT TOBACCO USE 1-7 YEARS AGO [facility] [place] [facility] May 21, 2001 01:11 PM HISTORY OF SMOKING quit 5 years ago [facility] Encounter Notes: All associated encounter notes This section contains the clinical notes associated to the Encounter. Date/Time Encounter Note(s) Provider Source Dec 14, 2023 12:01 PM TELEPHONE ENCOUNTE R NOTE: LOCAL TITLE: TELEPHONE NOTE/SPECIALTY CLINIC STANDARD TITLE: TELEPHONE ENCOUNTER NOTE DATE OF NOTE: DEC 14, 2023@12:01 ENTRY DATE: DEC 14, 2023@12:01:35 AUTHOR: BRANDYN ALDRIDGE COSIGNER: URGENCY: STATUS: COMPLETED Call attempt was made to remind vet that they have a FTF appt with the Pain clinic on 12/15/2023 at 1100. No answer, lvm. Location was confirmed. /rajesh/ BRANDYN ALDRIDGE Signed: 12/14/2023 12:01 BRANDYN ALDRIDGE [facility]
--- OUTSIDE RECORDS SUMMARY | 2024-07-29 08:31 | XMS_ITS ---
Author Name [facility] [place] Organization [place] Address [address] [place] [address] Care Team Providers Care Relay Dispatcher Name Role Phone APOORVA MORENO Primary Care [...] to Policy Hare [facility] ([facility]) MEDICARE ADVANTAGE MCR ([facility]) Apr 17, 2013 [id number] Lauren COELHO PATIENT [facility] ([facility]) MEDICARE ADVANTAGE MCR ([facility]) Apr 17, 2013 [id number] [phone] Lauren COELHO PATIENT Selected Encounter This section includes the information on record at [place] for the Encounter. Date/Time Encounter Type Encounter Description Reason Pro vider Source Sep 18, 2023 12:00 PM Outpatient Encounter COMMUNITY CARE CONSULT IHE Encounter Template Text not used by VA Plan of Treatment: Future Appointments (+ 6 months) and Future Tests (+/- 45 days) The Plan of Treatment section includes future care activities for the patient from all [place] [facility] This section includes future appointments and future orders which are active, pending or scheduled. Future Appointments This section includes appointments that were scheduled to occur 6 months from the date of the Encounter, up to a maximum of 20 appointments. The data comes from all [place] treatment facilities. Appointment Date/Time Appointment Type Appointme nt Facility Name Oct 02, 2023 11:30 AM AM[place]UL[place]ORY [place]ICINE [place] [facility] Oct 02, 2023 11:45 AM [place]ORY [place] [facility] Oct 02, 2023 12:30 PM AM[place]INE [place] [facility] Nov 17, 2023 11:30 AM [place]INE [place] [facility] Dec 15, 2023 11:00 AM AM[place]ORY - [place]INE [place] [facility] Feb 11, 2024 02:00 PM AMBULATORY - REHAB [place]ICIN [place] [facility] [place] [facility] Feb 19, 2024 11:00 AM AMBULATORY - [place]INE [place] [facility] Social History: Smoking Status (Most current) and Tobacco Use (All prior to encounter date) This section includes the most current, and the historical, smoking and tobacco- related health factors from the [place] facility where the Encounter took place. Current Smoking Status This section includes the most current smoking, or tobacco-related health factor, from the [place] facility where the Encounter took place. Date/Time Current Smoking Status Comment Bri reyes Oct 30, 2022 03:20 PM [place]-TOBACCO [facility] 15 YRS OR [facility] Tobacco Use History This section includes a history of the smoking, or tobacco-related health factors, that were collected on or before the date of the Encounter. The data comes from the [place] facility where the Encounter took place. Date/Time Smoking Status/Tobac co Use Comment Facility Oct 30, 2022 03:20 PM [place]-TOBACCO QUIT 15 YRS OR MORE [place] [facility] Jul 31, 2021 09:41 AM VA-TOBACCO FORMER USER [facility] Jul 31, 2021 09:41 AM VA-TOBACCO QUIT 15 YRS OR MORE [facility] [place] [facility] Jun 29, 2020 11:00 AM VA-TOBACCO FORMER USER [facility] [place] [facility] Jun 29, 2020 11:00 AM VA-TOBACCO QUIT 15 YRS OR MORE [facility] [place] [facility] Feb 10, 2019 10:14 AM VA-TOBACCO FORMER USER [facility] [place] [facility] Feb 10, 2019 10:14 AM VA-TOBACCO QUIT 15 YRS OR MORE [facility] [place] [facility] Nov 27, 2017 11:12 AM QUIT TOBACCO USE > 7 YEARS AGO [facility] [place] [facility] Nov 05, 2016 11:01 AM QUIT TOBACCO USE > 7 YEARS AGO [facility] [place] [facility] Sep 17, 2015 01:03 PM QUIT TOBACCO USE > 7 YEARS AGO stopped 20 years ago [facility] [place] [facility] Feb 24, 2005 10:09 AM HISTORY OF SMOKING [facility] [place] [facility] May 28, 2004 08:08 AM QUIT TOBACCO USE > 7 YEARS AGO [facility] [place] [facility] Nov 27, 2003 01:12 PM HISTORY OF SMOKING [facility] [place] [facility] Mar 15, 2003 02:03 PM QUIT TOBACCO USE 1-7 YEARS AGO [facility] [place] [facility] Aug 24, 2002 11:07 AM HISTORY OF SMOKING [facility] [place] [facility] Feb 11, 2002 11:35 AM QUIT TOBACCO USE 1-7 YEARS AGO [facility] [place] [facility] May 21, 2001 01:11 PM HISTORY OF SMOKING quit 5 years ago [facility] [place] [facility] Encounter Notes: All associated encounter notes This section contains the clinical notes associated to the Encounter. Date/Time Encounter Note(s) Provider Source Sep 18, 2023 12:00 PM NONVA CONSULT: LOCAL TITLE: COMMUNITY CARE-CONSULT RESULT NOTE STANDARD TITLE: NONVA CONSULT DATE OF NOTE: SEP 18, 2023@12:00 ENTRY DATE: FEB 10, 2024@11:31:35 AUTHOR: ALISA ROLLINS COSIGNER: URGENCY: STATUS: COMPLETED VistA Imaging - Scanned Document SCANNED DOCUMENT SIGNATURE NOT REQUIRED Electronically Filed: 02/10/2024 by: ALISA ROLLINS COIN MACHINE OPERATOR ALISA ROLLINS [facility]
--- OUTSIDE RECORDS SUMMARY | 2024-07-29 08:31 | XMS_ITS | Encounter Summary ---
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 Date/Time Primary/Secondary Diagnosis Diagnosis Name Provider Source Dec 15, 2023 11:50 AM PRIMARY Carcinoma in situ of prostate LEXIS HOPKINS [facility] Plan of Treatment: Future Appointments (+ 6 months) and Future Tests (+/- 45 days) The Plan of Treatment section includes future care activities for the patient from all [place] [facility] This section includes future appointments and future orders which are active, pending or scheduled. Future Appointments This section includes appointments that were scheduled to occur 6 months from the date of the Encounter, up to a maximum of 20 appointments. The data comes from all [facility]. Appointment Date/Time Appointment Type Appointme nt Facility Name Feb 11, 2024 02:00 PM AMBULATORY - REHAB MEDICIN E [facility] Feb 19, 2024 11:00 AM AMBULATORY - MEDICINE [facility] May 05, 2024 02:30 PM AMBULATORY - [facility] MEDICIN [facility] May 20, 2024 02:30 PM AMBULATORY - RE[facility]AB MEDICIN [facility] Jun 10, 2024 02:00 PM AMBULATORY - [facility]AB MEDICIN [facility] Active, Pending, and Scheduled Orders This section includes a listing of several types of active, pending, and scheduled orders, including clinic medications orders, diagnostic test orders, procedure orders and consult orders; where the start date of the order is 45 days before the date of the Encounter or 45 days after the date of theEncounter. The data comes from all [facility]. Test Date/Time Test Type Test Details Facility Name Dec 15, 2023 04:25 PM Consult Order REHAB MEDI CINE/[facility] OUTPT Cons Web User Experience Strategist's Choice [facility] Social History: Smoking Status (Most current) and Tobacco Use (All prior to encounter date) This section includes the most current, and the historical, smoking and tobacco- related health factors from the [place] facility where the Encounter took place. Current Smoking Status This section includes the most current smoking, or tobacco-related health factor, from the [place] facility where the Encounter took place. Date/Time Current Smoking Status Comment Facil ity Nov 17, 2023 11:30 AM VA-TOBACCO FORMER USER [place] [facility] [place] [facility] Tobacco Use History This section includes a history of the smoking, or tobacco-related health factors, that were collected on or before the date of the Encounter. The data comes from the [place] facility where the Encounter took place. Date/Time Smoking Status/Tobac co Use Comment Facility Nov 17, 2023 11:30 AM VA-TOBACCO QUIT 15 YRS OR MORE [facility] [place] [facility] Oct 30, 2022 03:20 PM VA-TOBACCO FORMER USER [facility] [place] [facility] Oct 30, 2022 03:20 PM VA-TOBACCO QUIT 15 YRS OR MORE [facility] [place] [facility] Jul 31, 2021 09:41 AM VA-TOBACCO FORMER USER [facility] [place] [facility] Jul 31, 2021 09:41 AM VA-TOBACCO QUIT 15 YRS OR MORE [facility] [place] [facility] Jun 29, 2020 11:00 AM VA-TOBACCO FORMER USER [facility] [place] [facility] Jun 29, 2020 11:00 AM VA-TOBACCO QUIT 15 YRS OR MORE [place] [facility] [place] [facility] Feb 10, 2019 10:14 AM VA-TOBACCO FORMER USER [facility] [place] [facility] Feb 10, 2019 10:14 AM VA-TOBACCO QUIT 15 YRS OR MORE [facility] [place] [facility] Nov 27, 2017 11:12 AM QUIT TOBACCO USE > 7 YEARS AGO [facility] [place] [facility] Nov 05, 2016 11:01 AM QUIT TOBACCO USE > 7 YEARS AGO [facility] [place] [facility] Sep 17, 2015 01:03 PM QUIT TOBACCO USE > 7 YEARS AGO stopped 20 years ago [facility] [place] [facility] Feb 24, 2005 10:09 AM HISTORY OF SMOKING [facility] [place] [facility] May 28, 2004 08:08 AM QUIT TOBACCO USE > 7 YEARS AGO [facility] [place] [facility] Nov 27, 2003 01:12 PM HISTORY OF SMOKING [facility] [place] [facility] Mar 15, 2003 02:03 PM QUIT TOBACCO USE 1-7 YEARS AGO [facility] [place] [facility] Aug 24, 2002 11:07 AM HISTORY OF SMOKING [facility] Feb 11, 2002 11:35 AM QUIT TOBACCO USE 1-7 YEARS AGO [facility] May 21, 2001 01:11 PM HISTORY OF SMOKING quit 5 years ago [facility] Encounter Notes: All associated encounter notes This section contains the clinical notes associated to the Encounter. Date/Time Encounter Note(s) Provider Source Dec 15, 2023 08:53 AM ACCOUNTING OF DISCLOSURES NOTE: LOCAL TITLE: STATE PRESCRIPTION DRUG MONITORING PROGRAM STANDARD TITLE: ACCOUNTING OF DISCLOSURES NOTE DATE OF NOTE: DEC 15, 2023@08:53:07 ENTRY DATE: DEC 15, 2023@08:53:07 AUTHOR: LEXIS HOPKINS EXP COSIGNER: URGENCY: STATUS: COMPLETED This PDMP query was submitted by Lexis Hopkins. The clinical justification for this PDMP query is to review controlled substances prescribed outside of the [place], and any additional information that may become available, as an important component of standard clinical care, and in accordance with [facility] policy. Patient information was shared with the PDMP [place]. No prescription(s) for controlled substances outside the [place] were found in the last 90 days. /rajesh/ LEXIS HOPKINS CLINICAL PHARMACIST PRACTITIONER, PAIN Signed: 12/15/2023 11:49 LEXIS HOPKINS [facility] Dec 15, 2023 08:24 AM PAIN MEDICINE CONSULT: LOCAL TITLE: CONSULT REPORT/PAIN CLINIC STANDARD TITLE: PAIN MEDICINE CONSULT DATE OF NOTE: DEC 15, 2023@08:24 ENTRY DATE: DEC 15, 2023@08:24:27 AUTHOR: LEXIS HOPKINS EXP COSIGNER: URGENCY: STATUS: COMPLETED HANH Ugalde is 78 year old WHITE MALE with a history of chronic back pain per consult, who presents to pharmacy pain management clinic today for initial appointment based on referral from PCP, RAMIREZ Lee. SUBJECTIVE/OBJECTIVE: HANH Ugalde presents to clinic today in no apparent distress. [place] states some confusion as he thought appointment today was with physiatry pain management. However, after introducing self and role on pain team agreed to proceed with today's appointment. Katherine reports a history of back pain primarily in the thoracic spine and low back area with sciatica on the right side. He reports today a pain level of 5 out of 10, with 10 being the most severe. Katherine reports pain level increases in the evening, usually around an 8/10. Katherine reports while standing/walking around pain is usually improved. He finds it to be most bothersome when sitting or lying down. Katherine reports he has seen a number of pain management providers in the past most recently following with [facility]. Katherine was paying with [place] insurance, however, is having difficulty getting services covered per his report. Notes from non-VA providers were requested by VA PCP and are available in PerSay for review. Katherine reports he has received a number of injections over the last six years and has been offered several procedures including pain pump/SCS (although it does not appear any formal evaluation was done for these recommendations). Katherine states he prefers to follow-up with physiatry as he is trying to stay from the hard drugs but at the same time is wary of invasive procedures. Katherine identifies one of his goals as being able to relax and sleep better with the pain instead of feeling like he needs to move around all the time. PAIN SCREENING: PEG PAIN SCREENING TOOL Q1. What number best describes your pain ON AVERAGE in the past week? NOTE: 0 is no pain; 10 is pain as bad as you can imagine Q2. What number best describes how, during the past week, pain has interfered with your enjoyment of life? NOTE: 0 means it does not interfere; 10 means it completely interferes Q3. What number best describes how, during the past week, pain has interfered with your general activity? NOTE: 0 means it does not interfere; 10 means it completely interferes PEG Scores: Date Q1 Q2 Q3 Score (Average of Q1-Q3) 12/15/23 5 10 7 EVALUATION OF PAIN RELATED MEDICATIONS: ----- A focused pain related medication reconciliation was performed. - No pain related medications in profile - [place] denies any regular pain medication use. Does endorse PRN use of acetaminophen, ibuprofen, and naproxen. Reports he is careful to not overuse d/t concerns for kidney function - does use OTC Lidocaine patches Previous Pain Related Medications: NSAIDs: Ibuprofen, Naproxen Opioids: Hydrocodone/Acetaminophen Antidepressants: Amitriptyline EVALUATION OF NON-PHARM (COMPLIMENTARY AND INTEGRATIIVE MEDICINE) MOADLITIES: HEAT/ICE: Sometimes. TENS: [place]field believes he had trial around the same time as PT in 2016 but does not recall benefit STRETCHING/EXERCISE: No purposeful exercise; active with work PAIN INTERVENTIONS/INJECTIONS: - 12/2022 - SI Joint Injection * Limited benefit per [place] - 05/2023 - right L5/S1 facet aspiration and injection through [facility] * Improvement in pain level allowing for sleep and functioning - 06/2023 - Discussion on SCS/Pain Pump with [facility] * [place] denies any follow-up based on this discussion - 09/09 - Non-VA providers recommended RFA of L5 dorsal ramus/L5-S1 facet capsule * Did not occur - 10/10 - [facility] Referral denied. Dr. Chinchilla recommended referral to [place] physiatry and pain clinic for non- invasive recommendations PHYSICAL THERAPY: previously referred [facility] PT through [facility] in 2016. [place]field reports minimal benefit from this ACUPUNCTURE: Denied. CHIROPRACTOR: Denied. OTHER: Belt Brace from Dr. Lao(?); uses while walking with benefit does not help when sitting EVALUATION OF SOCIAL HISTORY: --- MOOD: Good - Denies any issues today SLEEP: Most challenging for ; difficult to find a comfortable position usually wakes around 4AM. FAMILY: , lives with . Reports she is supportive but he feels bad that his constant complaining could be a burden to her SERVICE: [employer] 1965 HOBBIES: Member of [employer] [facility] LEVEL OF ACTIVITY: Good. 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 Quit 30 years ago. ALCOHOL USE: Occasional; socially on holiday CANNABIS USE: Denied. OTHER ILLICIT SUBSTANCES: Denied. RISK MITIGATION: PDMP: Completed today as part of consult review; no controlled prescriptions filled outside [facility] in the last 90-days C-SSRS: Completed today; [place] screened SULFONAMIDE/RELATED ANTIMICROBIALS, AUGMENTIN Active and Recently Outpatient Medications (excluding Supplies): Active Outpatient Medications Status 1) ALBUTEROL 90MCG (CFC-F) 200D ORAL INHL INHALE 1 PUFF ACTIVE BY MOUTH TWICE DAILY NEEDED FOR BRONCHOSPASM PREVENTION 2) AMLODIPINE BESYLATE 2.5MG TAB TAKE THREE TABLETS BY ACTIVE MOUTH ONCE DAILY FOR BLOOD PRESSURE/HEART, DO NOT TAKE WITH GRAPEFRUIT JUICE 3) ATORVASTATIN CALCIUM 40MG TAB TAKE ONE-HALF TABLET BY ACTIVE (S) MOUTH ONCE DAILY FOR CHOLESTEROL REPLACES SIMVASTATIN. 4) LATANOPROST 0.005% OPH SOLN INSTILL 1 DROP INTO THE ACTIVE LEFT EYE AT BEDTIME TO REDUCE PRESSURE IN THE EYE 5) TESTOSTERONE (EQV-ANDROGEL) 1% 5GM GEL APPLY 1 PACKET ACTIVE TOPICALLY ONCE DAILY TO SHOULDER. RUB IN UNTIL DRY, THEN WASH HANDS WITH SOAP AND WATER 6) ZOLPIDEM TARTRATE 10MG TAB TAKE ONE TABLET BY MOUTH ACTIVE AT BEDTIME FOR SLEEP Active Non-VA Medications Status 1) Non-VA ASPIRIN 81MG EC TAB 81MG BY MOUTH DAILY ACTIVE 2) Non-VA LABETALOL HCL 100MG TAB 100MG BY MOUTH TWICE ACTIVE DAILY 8 Total Medications Active problems - Computerized Problem List is the source for the followin. Exposure to potentially hazardous substance 2. History of implantation of penile prosthesis 3. Cancer of prostate 4. Sciatica 5. Benign essential hypertension (SNOMED CT 3646235) 6. Hypogonadism 7. Screening for Malignant Neoplasms of colon 8. Hearing loss * 9. Tinnitus * 10. Chronic sinusitis 11. Impaired FASTING Glucose 12. Hyperlipidemia * 13. Allergic rhinitis * 14. Diverticulitis, Colonic * 15. Hypertrophy (Benign) of Prostate without Urinary obstruction 16. GERD * 17. 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 DIAPHRAGMATIC HERNIA 20. CALCULUS OF KIDNEY 21. former smoker IMAGING 9/2/23: MRI Lumbar Spine w/o Contrast (available in [facility]) Impression: 1. At L5-S1, there is moderate facet arthropathy and new right-sided synovial cyst which contributes to right subarticular zone narrowing. There is also progressive moderate bilateral neural foraminal narrowing at this level 2. Otherwise mild multilevel degenerative changes of the lumbar spine as described above without significant central spinal canal stenosis or high-grade neural foraminal narrowing Renal Function: Scr: 0.74 mg/dL based on labs drawn 11/09/23 eGFR: >90 mL/min based on labs drawn 11/09/23 Calculated CrCl: 90.8mL/min (based on Scr: 0.74 mg/dL; HT: 170.28cm; WT: 89.8kg) ASSESSMENT: Mr. Coelho is a 78-year-old male [place] with a history of chronic thoracic and lumbar back pain with sciatica. B[place]field has been following with Non-VA physiatry and orthopedics providers at [facility], however, d/t insurance changes is interested in learning more about [facility] pain management options. Outside records are available for review in [facility]. Comorbid conditions include HTN, asthma, GERD, and insomnia. As this was initial appointment with pain clinic much time was spent obtaining history, providing education, and building rapport with [place]. While was expecting to be seen by physiatry provider today he was pleasant and agreeable to learning about pain clinic services. Reviewed the stepped care model for pain management and discussed incorporation of multiple modalities of care into regimen on part of creating a comprehensive plan. Provided education on the close relationship between pain, mood, and sleep and how these factors can influence each other. Provided [place] with flyer for [facility] and explain purpose of this course to better understand and cope while living with chronic pain. While did decline today, he did keep flyer to think about in the future. Acknowledged 's desire to limit medication use. Did offer trial of diclofenac 1% gel as an alternative to use of oral NSAIDs as systemic absorption is significantly lower in comparison reducing risk of MICHELE, such as renal injury. [place] was interested in this trial. Reviewed utilizing dosing care and proper application instructions. Counseled to not exceed 32gms per day and to avoid simultaneous use with lidocaine patches. voiced an understanding of education provided. remains interested in being seen by [place] physiatry. This was also recommended in Dr. Chinchilla's 09/29/23 comment to [facility]. Reviewed at pain team meeting; will place consult. Lastly, completed baseline risk mitigation for initial appointment screening including querying of the PDMP, which did not yield any additional findings, and completion of C-SSRS. screened negative. A shared decision-making approach was used in the development of this plan, involving the [place], clinician, and any caregivers present. The was provided the opportunity express questions or concerns, and the plan was adjusted as needed to address these concerns. (and/or caregiver) verbalized understanding of the plan, including possible known risks and benefits, and had no additional questions. PLAN: 1. Start Diclofenac 1% Gel 4gm TID PRN - [place] counseled on proper application - Prescription entered for mail delivery per 's preference 2. [place]field may continue to utilize OTC lidocaine patches PRN - Counseled to not overlap use with diclofenac gel 3. Pain education provided - [facility]; declines today 4. Referral to [facility] PM&R placed 5. Baseline risk mitigation completed - C-SSRS Completed; [place] screened negative - PDMP queried; results returned as expected F/U via F2F in 4-6 weeks; Pt instructed to contact clinic with any questions or concerns prior to next encounter. Encounter Time: 60 minutes Suicide Screen: C-SSRS Screening [place]-Suicide Severity Rating Scale (C-SSRS Screener) 1. Over the past month, have you wished you were or wished you could go to sleep and not wake up? No 2. Over the past month, have you had any actual thoughts of killing yourself? No 3. Over the past month, have you been thinking about how you might do this? Response not required due to responses to other questions. 4. Over the past month, have you had these thoughts and had some intention of acting on them? Response not required due to responses to other questions. 5. Over the past month, have you started to work out or worked out the details of how to kill yourself? Response not required due to responses to other questions. 6. If yes, at any time in the past month did you intend to carry out this plan? Response not required due to responses to other questions. 7. In your lifetime, have you ever done anything, started to do anything, or prepared to do anything to end your life (for example, collected pills, obtained a gun, gave away valuables, went to the roof but didn't jump)? No 8. If YES, was this within the past 3 months? Response not required due to responses to other questions. /rajesh/ LEXIS HOPKINS CLINICAL PHARMACIST PRACTITIONER, PAIN Signed: 12/15/2023 16:21 LEXIS HOPKINS [place] [facility]
--- OUTSIDE RECORDS SUMMARY | 2024-07-29 08:32 | XMS_ITS | Encounter Summary ---
Author Name [facility] [facility] [place] [facility] [place] Address [address] [place] [address] Care Team Providers Care Regulatory Consultant Name Role Phone APOORVA MORENO Primary Care [...] Hare's Name Patient's Relationship to Policy Hare [facility]) MEDICARE ADVANTAGE MCR ([facility]) Apr 17, 2013 [id number] [phone] Lauren COELHO PATIENT [facility] ([facility]) MEDICARE ADVANTAGE MCR ([facility]) Apr 17, 2013 [id number] Lauren COELHO PATIENT Selected Encounter This section includes the information on record at [place] for the Encounter. Date/Time Encounter Type Encounter Description Reason Pro vider Source May 04, 2024 08:20 AM Outpatient Encounter OPTOMETRY IHE Encounter Template Text not used by [facility] Plan of Treatment: Future Appointments (+ 6 months) and Future Tests (+/- 45 days) The Plan of Treatment section includes future care activities for the patient from all [place] [facility] This section includes future appointments and future orders which are active, pending or scheduled. Future Appointments This section includes appointments that were scheduled to occur 6 months from the date of the Encounter, up to a maximum of 20 appointments. The data comes from all [place] [facility]. Appointment Date/Time Appointment Type Appointme nt Facility Name May 05, 2024 02:30 PM AM[facility]ULATORY - [facility] May 20, 2024 02:30 PM [facility] Jun 10, 2024 02:00 PM [facility] Jun 16, 2024 02:30 PM [facility] Jun 21, 2024 01:00 PM [facility] [place] [facility] [place] [facility] Jun 21, 2024 02:00 PM [place] [facility] [place] [facility] Jul 19, 2024 10:00 AM [place]ORY [place] [facility] [place] [facility] Aug 12, 2024 09:00 AM [facility]ORY [place] [facility] [place] [facility] Aug 12, 2024 09:30 AM [place]ORY [place] [facility] [place] [facility] Aug 12, 2024 10:00 AM [facility]ORY [place] [facility] [place] [facility] Oct 20, 2024 11:30 AM AM[place]ULATORY [place]INE [place] [facility] [place] [facility] Social History: Smoking Status (Most current) and Tobacco Use (All prior to encounter date) This section includes the most current, and the historical, smoking and tobacco- related health factors from the [place] facility where the Encounter took place. Current Smoking Status This section includes the most current smoking, or tobacco-related health factor, from the [place] facility where the Encounter took place. Date/Time Current Smoking Status Comment [facility] it Nov 17, 2023 11:30 AM VA-TOBACCO FORMER USER [place] [facility] [place] [facility] Tobacco Use History This section includes a history of the smoking, or tobacco-related health factors, that were collected on or before the date of the Encounter. The data comes from the [place] facility where the Encounter took place. Date/Time Smoking Status/Tobac co Use Comment Facility Nov 17, 2023 11:30 AM VA-TOBACCO QUIT 15 YRS OR MORE [facility] [place] [facility] Oct 30, 2022 03:20 PM VA-TOBACCO FORMER USER [facility] [place] [facility] Oct 30, 2022 03:20 PM VA-TOBACCO QUIT 15 YRS OR MORE [facility] [place] [facility] Jul 31, 2021 09:41 AM VA-TOBACCO FORMER USER [facility] [place] [facility] Jul 31, 2021 09:41 AM VA-TOBACCO QUIT 15 YRS OR MORE [facility] [place] [facility] Jun 29, 2020 11:00 AM VA-TOBACCO FORMER USER [facility] [place] [facility] Jun 29, 2020 11:00 AM VA-TOBACCO QUIT 15 YRS OR MORE [facility] [place] [facility] Feb 10, 2019 10:14 AM VA-TOBACCO FORMER USER [facility] [place] [facility] Feb 10, 2019 10:14 AM VA-TOBACCO QUIT 15 YRS OR MORE [facility] [place] [facility] Nov 27, 2017 11:12 AM QUIT TOBACCO USE > 7 YEARS AGO [facility] [place] [facility] Nov 05, 2016 11:01 AM QUIT TOBACCO USE > 7 YEARS AGO [facility] [place] [facility] Sep 17, 2015 01:03 PM QUIT TOBACCO USE > 7 YEARS AGO stopped 20 years ago [facility] [place] [facility] Feb 24, 2005 10:09 AM HISTORY OF SMOKING [facility] [place] [facility] May 28, 2004 08:08 AM QUIT TOBACCO USE > 7 YEARS AGO [facility] [place] [facility] Nov 27, 2003 01:12 PM HISTORY OF SMOKING [facility] [place] [facility] Mar 15, 2003 02:03 PM QUIT TOBACCO USE 1-7 YEARS AGO [facility] [place] [facility] Aug 24, 2002 11:07 AM HISTORY OF SMOKING [facility] [place] [facility] Feb 11, 2002 11:35 AM QUIT TOBACCO USE 1-7 YEARS AGO [facility] [place] [facility] May 21, 2001 01:11 PM HISTORY OF SMOKING quit 5 years ago [facility] [place] [facility] Encounter Notes: All associated encounter notes This section contains the clinical notes associated to the Encounter. Date/Time Encounter Note(s) Provider Source May 04, 2024 08:20 AM TELEPHONE ENCOUNTE R NOTE: LOCAL TITLE: TELEPHONE NOTE/SPECIALTY CLINIC STANDARD TITLE: TELEPHONE ENCOUNTER NOTE DATE OF NOTE: MAY 04, 2024@08:20 ENTRY DATE: MAY 04, 2024@08:20:50 AUTHOR: NEGRO MINER EXP COSIGNER: URGENCY: STATUS: COMPLETED called asking for refills on his LATANOPROST 0.005% SOLN,OPH 0.005% Eye drops. Veterans address and phone number have been confirmed /rajesh/ NEGRO MINER [employer] Signed: 05/04/2024 08:21 Receipt Acknowledged By: 05/04/2024 09:48 /rajesh/ PURNIMA ESTRADA OD STAFF OPERATIONS ANALYST NEGRO MINER [place] [facility]
--- OUTSIDE RECORDS SUMMARY | 2024-07-29 08:32 | XMS_ITS ---
Author Name [facility] [place] [facility] [place] Organization [facility] [place] Address [address] [place] [address] Care Team Providers Care Progress Man Name Role Phone ANUPAM LEE Primary Care [...] Hare's Name Patient's Relationship to Policy Hare [facility]) MEDICARE ADVANTAGE MCR ([facility]) Apr 17, 2013 [id number] Lauren COELHO PATIENT [facility] ([facility]) MEDICARE ADVANTAGE MCR ([facility]) Apr 17, 2013 [id number] Lauren COELHO PATIENT Selected Encounter This section includes the information on record at [place] for the Encounter. Date/Time Encounter Type Encounter Description Reason Pro vider Source May 04, 2024 08:57 AM Outpatient Encounter ADMIN PAT ACTIVTIES (MASNONCT) IHE Encounter Template Text not used by [place] Plan of Treatment: Future Appointments (+ 6 months) and Future Tests (+/- 45 days) The Plan of Treatment section includes future care activities for the patient [facility] [place] [facility] This section includes future appointments and future orders which are active, pending or scheduled. Future Appointments This section includes appointments that were scheduled to occur 6 months from the date of the Encounter, up to a maximum of 20 appointments. The data comes from all [facility]. Appointment Date/Time Appointment Type Appointme nt Facility Name May 05, 2024 02:30 PM [facility] May 20, 2024 02:30 PM AMBULATORY - REHAB [facility] Jun 10, 2024 02:00 PM AMBULATORY - REHAB [facility] Jun 16, 2024 02:30 PM AMBULATORY - REHAB [facility] Jun 21, 2024 01:00 PM AMBULATORY - MEDICINE [facility] [place] [facility] Jun 21, 2024 02:00 PM AMBULATORY MEDICINE [facility] [place] [facility] Jul 19, 2024 10:00 AM AMBULATORY [place] [facility] [place] [facility] Aug 12, 2024 09:00 AM AMBULATORY - MEDICINE [facility] [place] [facility] Aug 12, 2024 09:30 AM AMBULATORY - MEDICINE [facility] [place] [facility] Aug 12, 2024 10:00 AM AMBULATORY - MEDICINE [facility] [place] [facility] Oct 20, 2024 11:30 AM AMBULATORY - MEDICINE [facility] [place] [facility] Social History: Smoking Status (Most current) and Tobacco Use (All prior to encounter date) This section includes the most current, and the historical, smoking and tobacco- related health factors from the [place] facility where the Encounter took place. Current Smoking Status This section includes the most current smoking, or tobacco-related health factor, from the [place] facility where the Encounter took place. Date/Time Current Smoking Status Comment Bri reyes Nov 17, 2023 11:30 AM VA-TOBACCO FORMER USER [place] [facility] [place] [facility] Tobacco Use History This section includes a history of the smoking, or tobacco-related health factors, that were collected on or before the date of the Encounter. The data comes from the [place] facility where the Encounter took place. Date/Time Smoking Status/Tobac co Use Comment Facility Nov 17, 2023 11:30 AM VA-TOBACCO QUIT 15 YRS OR MORE [facility] [place] [facility] Oct 30, 2022 03:20 PM VA-TOBACCO FORMER USER [facility] [place] [facility] Oct 30, 2022 03:20 PM VA-TOBACCO QUIT 15 YRS OR MORE [facility] [place] [facility] Jul 31, 2021 09:41 AM VA-TOBACCO FORMER USER [facility] [place] [facility] Jul 31, 2021 09:41 AM VA-TOBACCO QUIT 15 YRS OR MORE [facility] [place] [facility] Jun 29, 2020 11:00 AM VA-TOBACCO FORMER USER [facility] [place] [facility] Jun 29, 2020 11:00 AM VA-TOBACCO QUIT 15 YRS OR MORE [facility] [place] [facility] Feb 10, 2019 10:14 AM VA-TOBACCO FORMER USER [facility] [place] [facility] Feb 10, 2019 10:14 AM VA-TOBACCO QUIT 15 YRS OR MORE [facility] [place] [facility] Nov 27, 2017 11:12 AM QUIT TOBACCO USE > 7 YEARS AGO [facility] [place] [facility] Nov 05, 2016 11:01 AM QUIT TOBACCO USE > 7 YEARS AGO [facility] [place] [facility] Sep 17, 2015 01:03 PM QUIT TOBACCO USE > 7 YEARS AGO stopped 20 years ago [facility] [place] [facility] Feb 24, 2005 10:09 AM HISTORY OF SMOKING [facility] [place] [facility] May 28, 2004 08:08 AM QUIT TOBACCO USE > 7 YEARS AGO [facility] [place] [facility] Nov 27, 2003 01:12 PM HISTORY OF SMOKING [facility] [place] [facility] Mar 15, 2003 02:03 PM QUIT TOBACCO USE 1-7 YEARS AGO [facility] [place] [facility] Aug 24, 2002 11:07 AM HISTORY OF SMOKING [facility] [place] [facility] Feb 11, 2002 11:35 AM QUIT TOBACCO USE 1-7 YEARS AGO [facility] [place] [facility] May 21, 2001 01:11 PM HISTORY OF SMOKING quit 5 years ago [facility] [place] [facility] Encounter Notes: All associated encounter notes This section contains the clinical notes associated to the Encounter. Date/Time Encounter Note(s) Provider Source May 04, 2024 08:58 AM ADMINISTRATIVE NOT E: LOCAL TITLE: CCC: SCHEDULING ADMINISTRATION STANDARD TITLE: ADMINISTRATIVE NOTE DATE OF NOTE: MAY 04, 2024@08:58 ENTRY DATE: MAY 04, 2024@08:58 AUTHOR: KAYLYN MARTINEZ EXP COSIGNER: URGENCY: STATUS: COMPLETED CCC: SCHEDULING ADMINISTRATION Has ADDENDA Patient Demographics Patient Name: HANH COELHO Patient Primary Phone: [phone] Patient Primary [address]: [address] [place] [id number] Patient : 1945 Patient Age: 78 Caller/Recipient Relation to Patient: Self Administrative Administrative Note Reason: Medication Renewal [place] Medications Refill/Renewal Request: Rx # - Medication Name - Dosage - SIG - Number of Refills - Facility - Status [id number] - ZOLPIDEM TARTRATE 10MG TAB - 1 TABLET - TAKE ONE TABLET BY MOUTH AT BEDTIME FOR SLEEP - 0 - [facility] - 631 - Administrative Note Comments: is requesting the above medication be renewed and mailed IMPORTANT: This note was created by [facility] Clinical Contact Center staff. Please do not alert the staff member by adding them as a signer for future communications. Alerts are not monitored by this user. /yenny MARTINEZ Signed: 05/04/2024 08:58 Receipt Acknowledged By: 05/04/2024 09:07 /rajesh/ JED CEVALLOS REGISTERED NURSE for YOLY GONZALES 05/05/2024 17:35 /es/ Anupam Lee PA-C STAFF PHYSICIAN [employer] PROFILER 05/04/2024 ADDENDUM STATUS: COMPLETED PDMP AND OPIOID NOTE COMPLETED BY RN. DEFER TO PCP FOR RENEWAL DEEMED APPROPRIATE /rajesh/ JED CEVALLOS REGISTERED NURSE Signed: 05/04/2024 09:11 KAYLYN MARTINEZ [facility]
--- OUTSIDE RECORDS SUMMARY | 2024-07-29 08:32 | XMS_ITS ---
Author Name [facility] [place] Organization [place] Address [address] [place] [address] Care Team Providers Care Media Services Director Name Role Phone APOORVA LEE Primary Care [...] [place] MCR (WNR) MEDICARE ADVANTAGE MCR ([facility]) Apr 17, 2013 [id number] Lauren COELHO PATIENT [facility] ([facility]) MEDICARE ADVANTAGE MCR ([facility]) Apr 17, 2013 [id number] Lauren COELHO PATIENT Selected Encounter This section includes the information on record at [place] for the Encounter. Date/Time Encounter Type Encounter Description Reason Provider Source Feb 19, 2024 11:00 AM OFFICE O/P EST LOW 20 MIN PRIMARY CARE/MEDICINE ICD-10-CM I11.9 Hypertensive heart disease without heart failure ROCKY LEEJules Hooks [facility] Encounter Template Text not used by [place] Assessments - Encounter Diagnoses This section includes the primary and secondary diagnoses documented for the Encounter. Date/Time Primary/Secondary Diagnosis Diagnosis Name Provider Source Feb 19, 2024 11:13 AM PRIMARY Hypertensive heart disease without heart failure [facility]HROCKY [facility] Feb 19, 2024 11:13 AM SECONDARY Carcinoma in situ of prostate GERHARDBELKYSROCKY HORAN MATTHEW F [facility] Plan of Treatment: Future Appointments (+ 6 months) and Future Tests (+/- 45 days) The Plan of Treatment section includes future care activities for the patient from all [place] [facility]. This section includes future appointments and future orders which are active, pending or scheduled. Future Appointments This section includes appointments that were scheduled to occur 6 months from the date of the Encounter, up to a maximum of 20 appointments. The data comes from all [place] treatment facilities. Appointment Date/Time Appointment Type Appointme nt Facility Name May 05, 2024 02:30 PM AMBULATORY - [facility]AB [facility] May 20, 2024 02:30 PM AMBULATORY - REHAB [facility] Jun 10, 2024 02:00 [facility] Jun 16, 2024 02:30 PM [facility] - [facility]AB [facility] Jun 21, 2024 01:00 PM AMBULATORY - MEDICINE [facility] [place] [facility] Jun 21, 2024 02:00 PM AMBULATORY - MEDICINE [facility] [place] [facility] Jul 19, 2024 10:00 AM AMBULATORY - MEDICINE [place] C [place] [facility] Aug 12, 2024 09:00 AM AMBULATORY - MEDICINE [place] C [place] [facility] Aug 12, 2024 09:30 AM AMBULATORY - MEDICINE [facility] [place] [facility] Aug 12, 2024 10:00 AM AMBULATORY - MEDICINE [facility] [place] [facility] Lab Results: +/- 30 days of the encounter This section includes the Chemistry and Hematology Lab Results on record with [place] for the patient. Radiology Reports and Pathology Reports are provided separately, in subsequent sections. Lab Results This section contains the Chemistry/Hematology Results that were resulted 30 days before or 30 daysafter the date of the Encounter. Date/Time Source Result Type Result - Unit Interpretation Reference Range Comment Feb 16, 2024 12:12 PM [facility] PSA Specimen Type: SERUM No comment entered. Ordering Provider: ROCKY LEE Report Released Date/Time: Nov 17, 2023 11:49 AM Reporting Lab: [address] [address] Performing Lab: [address] [address] PSA 0.14 ng/mL 0.00-4.00 Feb 16, 2024 12:12 PM [facility] LIVER FUNCTION Specimen Type: SERUM No comment entered. Ordering Provider: ROCKY LEE Report Released Date/Time: Nov 17, 2023 11:49 AM Reporting Lab: [address] [address] Performing Lab: [address] [address] PROTEIN,TOTAL 6.8 g/dL 6.0-8.3 ALBUMIN 4.2 g/dL 3.5-5.0 ALKALINE PHOSPHATASE 63 U/L 40-150 AST 25 U/L 5-34 ALT 24 U/L BILIRUBIN, TOTAL 1.1 mg/dL 0.2-1.2 Feb 16, 2024 12:12 PM [facility] BASIC METABOLIC PANEL (fasting) Specimen Type: SERUM No comment entered. Ordering Provider: ROCKY LEE Report Released Date/Time: Nov 17, 2023 11:49 AM Reporting Lab: [address] [address] Performing Lab: [address] [address] UREA NITROGEN 18 mg/dL 7-25 GLUCOSE 94 mg/dL 65-100 SODIUM 141 mmol/L 135-145 POTASSIUM 4.1 mmol/L 3.5-5.0 CHLORIDE 109 mmol/L 100-110 CO2 24 meq/L 20-30 CREATININE, Serum 0.77 mg/dL 0.50-1.40 eGFR(CKD-EPI 2020) >90 mL/min >60 Feb 16, 2024 12:12 PM [facility] LIPID PANEL FASTING Specimen Type: SERUM No comment entered. Ordering Provider: ROCKY LEE Report Released Date/Time: Nov 17, 2023 11:49 AM Reporting Lab: [facility] [address] [facility] [address] Performing Lab: [facility] [address] [facility] [address] CHOLESTEROL 146 mg/dL TRIGLYCERIDE 96 mg/dL 0-150 LDL calculated 80 mg/dL 0-129 CHOL/HDL 3.1 HDL CHOLESTEROL 47 mg/dL 40-60 Vital Signs: All taken on the encounter date This section contains inpatient and outpatient Vital Signs collected on the date of the Encounter. Date/Time Temperature Pulse Blood Pressure Respiratory Rate SP02 Pain Height Weight Body Mass Index Source Feb 19, 2024 10:47 AM 98.3 73 161/95 20 97 5 67 195 31 [facility] Social History: Smoking Status (Most current) and Tobacco Use (All prior to encounter date) This section includes the most current, and the historical, smoking and tobacco- related health factors from the [place] facility where the Encounter took place. Current Smoking Status This section includes the most current smoking, or tobacco-related health factor, from the [place] facility where the Encounter took place. Date/Time Current Smoking Status Comment [facility] Nov 17, 2023 11:30 AM VA-TOBACCO FORMER USER [facility] Tobacco Use History This section includes a history of the smoking, or tobacco-related health factors, that were collected on or before the date of the Encounter. The data comes from the [place] facility where the Encounter took place. Date/Time Smoking Status/Tobac co Use Comment Facility Nov 17, 2023 11:30 AM VA-TOBACCO QUIT 15 YRS OR MORE [facility] Oct 30, 2022 03:20 PM VA-TOBACCO FORMER USER [facility] Oct 30, 2022 03:20 PM VA-TOBACCO QUIT 15 YRS OR MORE [facility] 15, 2021 09:41 AM VA-TOBACCO FORMER USER [facility] [place] [facility] Jul 31, 2021 09:41 AM VA-TOBACCO QUIT 15 YRS OR MORE [facility] [place] [place] [facility] Jun 29, 2020 11:00 AM VA-TOBACCO FORMER USER [facility] [place] [facility] Jun 29, 2020 11:00 AM VA-TOBACCO QUIT 15 YRS OR MORE [facility] [facility] Feb 10, 2019 10:14 AM VA-TOBACCO FORMER USER [facility] [place] [facility] Feb 10, 2019 10:14 AM VA-TOBACCO QUIT 15 YRS OR MORE [facility] [place] [facility] Nov 27, 2017 11:12 AM QUIT TOBACCO USE > 7 YEARS AGO [facility] [place] [facility] Nov 05, 2016 11:01 AM QUIT TOBACCO USE > 7 YEARS AGO [facility] [place] [facility] Sep 17, 2015 01:03 PM QUIT TOBACCO USE > 7 YEARS AGO stopped 20 years ago [facility] [place] [facility] Feb 24, 2005 10:09 AM HISTORY OF SMOKING [facility] [place] [facility] May 28, 2004 08:08 AM QUIT TOBACCO USE > 7 YEARS AGO [facility] [place] [facility] Nov 27, 2003 01:12 PM HISTORY OF SMOKING [facility] [place] [facility] Mar 15, 2003 02:03 PM QUIT TOBACCO USE 1-7 YEARS AGO [facility] [place] [facility] Aug 24, 2002 11:07 AM HISTORY OF SMOKING [facility] [place] [facility] Feb 11, 2002 11:35 AM QUIT TOBACCO USE 1-7 YEARS AGO [facility] [place] [facility] May 21, 2001 01:11 PM HISTORY OF SMOKING quit 5 years ago [facility] [place] [facility] Encounter Notes: All associated encounter notes This section contains the clinical notes associated to the Encounter. Date/Time Encounter Note(s) Provider Source Feb 19, 2024 11:10 AM PHYSICIAN DESK REPRESENTATIVE NOTE: LOCAL TITLE: PA NOTE STANDARD TITLE: PHYSICIAN DESK REPRESENTATIVE NOTE DATE OF NOTE: FEB 19, 2024@11:10 ENTRY DATE: FEB 19, 2024@11:10:04 AUTHOR: APOORVA LEE EXP COSIGNER: URGENCY: STATUS: COMPLETED CC/HPI/A/P: 78 year old MALE here in follow-up for; htn, 7.5 of amlodipine only, increase to 10mg daily, SEs disussed, bp check 1-2 weeks. f/u 4m, no labs. back pain, seen by Lennox Orosco (recent note not yet available) , also sees outside pain clinic, wants ablation,which he reports that Lennox says is not advised and outside pain [facility] insists on pt, chiro etc, w hich he reports I did years ago I encourage him to f/u with outside pain clinic nad meet their criteria. Talking to me about this at this point is not productive for him. Review of systems: Patient reports no changes [...] Sciatica 5. Benign essential hypertension (SNOMED CT [id number]) 6. Hypogonadism 7. Screening for Malignant Neoplasms [...] Urinary obstruction TURP 10/2101 Dr Stephens at [facility]. 16. GERD * 17. Insomnia * [...] TWICE DAILY NEEDED FOR BRONCHOSPASM PREVENTION 2) ATORVASTATIN CALCIUM 40MG TAB TAKE ONE-HALF TABLET BY ACTIVE MOUTH ONCE DAILY FOR CHOLESTEROL REPLACES SIMVASTATIN. 3) TESTOSTERONE (EQV-ANDROGEL) 1% 5GM GEL APPLY 1 PACKET ACTIVE TOPICALLY ONCE DAILY TO SHOULDER. RUB IN UNTIL DRY, THEN WASH HANDS WITH SOAP AND WATER 4) ZOLPIDEM TARTRATE 10MG TAB TAKE ONE TABLET BY MOUTH ACTIVE AT BEDTIME FOR SLEEP Pending Outpatient Medications Status 1) AMLODIPINE BESYLATE 10MG TAB TAKE ONE TABLET BY MOUTH PENDING ONCE DAILY FOR BLOOD PRESSURE/HEART, DO NOT TAKE WITH GRAPEFRUIT JUICE 2) ATORVASTATIN CALCIUM 40MG TAB TAKE ONE-HALF TABLET BY PENDING MOUTH ONCE DAILY FOR CHOLESTEROL REPLACES SIMVASTATIN. Inactive Outpatient Medications Status 1) LATANOPROST 0.005% OPH SOLN INSTILL 1 DROP INTO THE LEFT EYE AT BEDTIME TO REDUCE PRESSURE IN THE EYE Active Non-VA Medications Status 1) Non-VA ASPIRIN 81MG EC TAB 81MG BY MOUTH DAILY ACTIVE 8 Total Medications 98.3 F [36.8 C] (02/19/2024 10:47) 73 (02/19/2024 10:47) 20 (02/19/2024 10:47) 161/95 (02/19/2024 10:47) 5 (02/19/2024 10:47) 67 in [170.2 cm] (02/19/2024 10:47) 195 lb [88.45 kg] (02/19/2024 10:47) BMI: 30.6 Neuro: Alert and oriented times three, grossly nonfocal, nasolabial folds intact. Recent labs reviewed with patient today:yes. /rajesh/ Apoorva Lee PA-C STAFF PHYSICIAN DESK REPRESENTATIVE Signed: 02/19/2024 11:13 APOORVA LEE [facility] Feb 19, 2024 10:50 AM PREVENTIVE MEDICINE NURSING NOTE: LOCAL TITLE: CLINICAL REMINDERS/NURSING STANDARD TITLE: PREVENTIVE MEDICINE NURSING NOTE DATE OF NOTE: FEB 19, 2024@10:50 ENTRY DATE: FEB 19, 2024@10:50:26 AUTHOR: THANG WAYNE COSIGNER: URGENCY: STATUS: COMPLETED Advance Directive Screen AD: Patient does not have a completed advance directive on file at any facility, VA or outside. S/he is not interested in completing one at this time. The patient received education about Advance Directives and written notification of his/her rights. /rajesh/ Thang Wayne, Health Transit Coach Operator SUPPLY AIDE,PRIMARY CARE Signed: 02/19/2024 10:50 THANG WAYNE [facility]
--- OUTSIDE RECORDS SUMMARY | 2024-07-29 08:32 | XMS_ITS | Encounter Summary ---
Author Name [facility] [place] Organization [place] Address [address] [place] [address] Care Team Providers Care Hr Generalist Name Role Phone ANUPAM LEE Primary Care [...] Hare's Name Patient's Relationship to Policy Hare [facility] ([facility] MEDICARE ADVANTAGE MCR ([facility] Apr 17, 2013 [id number] [phone] [id number] Lauren COELHO PATIENT [facility] ([facility] MEDICARE ADVANTAGE MCR ([facility] Apr 17, 2013 [id number] [phone] 4 Lauren COELHO PATIENT Selected Encounter This section includes the information on record at [place] for the Encounter. Date/Time Encounter Type Encounter Description Reason Pro vider Source Feb 19, 2024 11:00 AM Outpatient Encounter PRIMARY CARE/MEDICINE IHE Encounter Template Text not used by VA Plan of Treatment: Future Appointments (+ 6 months) and Future Tests (+/- 45 days) The Plan of Treatment section includes future care activities for the patient from all [place] [facility]. This section includes future appointments and future orders which are active, pending or scheduled. Future Appointments This section includes appointments that were scheduled to occur 6 months from the date of the Encounter, up to a maximum of 20 appointments. The data comes from all [facility]. Appointment Date/Time Appointment Type Appointme nt Facility Name May 05, 2024 02:30 PM AMBULATORY - REHAB [facility] May 20, 2024 02:30 PM AMBULATORY - REHAB [facility] Jun 10, 2024 02:00 PM AMBULATORY - REHAB [facility] Jun 16, 2024 02:30 PM [facility] Jun 21, 2024 01:00 PM AMBULATORY MEDICINE [place] [facility] Jun 21, 2024 02:00 PM AMBULATORY MEDICINE [place] C [place] [facility] Jul 19, 2024 10:00 AM AMBULATORY MEDICINE [place] C [place] [facility] Aug 12, 2024 09:00 AM AMBULATORY MEDICINE [place] C [place] [facility] Aug 12, 2024 09:30 AM AMBULATORY MEDICINE [place] C [place] [facility] Aug 12, 2024 10:00 AM AMBULATORY MEDICINE [facility] [place] [facility] Lab Results: +/- 30 days of the encounter This section includes the Chemistry and Hematology Lab Results on record with [place] for the patient. Radiology Reports and Pathology Reports are provided separately, in subsequent sections. Lab Results This section contains the Chemistry/Hematology Results that were resulted 30 days before or 30 daysafter the date of the Encounter. Date/Time Source Result Type Result - Unit Interpretation Reference Range Comment Feb 16, 2024 12:12 PM [place] [facility] PSA Specimen Type: SERUM No comment entered. Ordering Provider: ROCKY LEE Report Released Date/Time: Nov 17, 2023 11:49 AM Reporting Lab: [place] [facility] [address] Performing Lab: [facility] [address] [address] PSA 0.14 ng/mL 0.00-4.00 Feb 16, 2024 12:12 PM [facility] LIVER FUNCTION Specimen Type: SERUM No comment entered. Ordering Provider: ROCKY LEE Report Released Date/Time: Nov 17, 2023 11:49 AM Reporting Lab: [facility] [address] [facility] [address] Performing Lab: [facility] [address] [facility] [address] PROTEIN,TOTAL 6.8 g/dL 6.0-8.3 ALBUMIN 4.2 g/dL 3.5-5.0 ALKALINE PHOSPHATASE 63 U/L 40-150 AST 25 U/L 5-34 ALT 24 U/L BILIRUBIN, TOTAL 1.1 mg/dL 0.2-1.2 Feb 16, 2024 12:12 PM [facility] BASIC METABOLIC PANEL (fasting) Specimen Type: SERUM No comment entered. Ordering Provider: ROCKY LEE Report Released Date/Time: Nov 17, 2023 11:49 AM Reporting Lab: [facility] [address] [facility] [address] Performing Lab: [address] [address] UREA NITROGEN 18 mg/dL 7-25 GLUCOSE 94 mg/dL 65-100 SODIUM 141 mmol/L 135-145 POTASSIUM 4.1 mmol/L 3.5-5.0 CHLORIDE 109 mmol/L 100-110 CO2 24 meq/L 20-30 CREATININE, Serum 0.77 mg/dL 0.50-1.40 eGFR(CKD-EPI 2020) >90 mL/min >60 Feb 16, 2024 12:12 PM [facility] LIPID PANEL FASTING Specimen Type: SERUM No comment entered. Ordering Provider: ROCKY LEE Report Released Date/Time: Nov 17, 2023 11:49 AM Reporting Lab: [address] [address] Performing Lab: [address] [address] CHOLESTEROL 146 mg/dL TRIGLYCERIDE 96 mg/dL 0-150 [...] 161/95 20 97 5 67 195 31 [place] [facility] [facility] Social History: Smoking Status (Most current) and Tobacco Use (All prior to encounter date) This section includes the most current, and the historical, smoking and tobacco- related health factors from the [place] facility where the Encounter took place. Current Smoking Status This section includes the most current smoking, or tobacco-related health factor, from the [place] facility where the Encounter took place. Date/Time Current Smoking Status Comment [facility] Nov 17, 2023 11:30 AM VA-TOBACCO FORMER USER [place] [facility] Tobacco Use History This section includes a history of the smoking, or tobacco-related health factors, that were collected on or before the date of the Encounter. The data comes from the [place] facility where the Encounter took place. Date/Time Smoking Status/Tobac co Use Comment Facility Nov 17, 2023 11:30 AM VA-TOBACCO QUIT 15 YRS OR MORE [place] [facility] [place] [facility] Oct 30, 2022 03:20 PM VA-TOBACCO FORMER USER [facility] [place] [facility] Oct 30, 2022 03:20 PM VA-TOBACCO QUIT 15 YRS OR MORE [facility] [place] [facility] Jul 31, 2021 09:41 AM VA-TOBACCO FORMER USER [facility] [place] [facility] Jul 31, 2021 09:41 AM VA-TOBACCO QUIT 15 YRS OR MORE [facility] [place] [facility] Jun 29, 2020 11:00 AM VA-TOBACCO FORMER USER [facility] [place] [facility] Jun 29, 2020 11:00 AM VA-TOBACCO QUIT 15 YRS OR MORE [facility] [place] [facility] Feb 10, 2019 10:14 AM VA-TOBACCO FORMER USER [facility] [place] [facility] Feb 10, 2019 10:14 AM VA-TOBACCO QUIT 15 YRS OR MORE [facility] [place] [facility] Nov 27, 2017 11:12 AM QUIT TOBACCO USE > 7 YEARS AGO [place] [facility] [place] [facility] Nov 05, 2016 11:01 AM QUIT TOBACCO USE > 7 YEARS AGO [facility] [place] [facility] Sep 17, 2015 01:03 PM QUIT TOBACCO USE > 7 YEARS AGO stopped 20 years ago [facility] [place] [facility] Feb 24, 2005 10:09 AM HISTORY OF SMOKING [facility] [place] [facility] May 28, 2004 08:08 AM QUIT TOBACCO USE > 7 YEARS AGO [place] [facility] [place] [facility] Nov 27, 2003 01:12 PM HISTORY OF SMOKING [facility] [place] [facility] Mar 15, 2003 02:03 PM QUIT TOBACCO USE 1-7 YEARS AGO [facility] [place] [facility] Aug 24, 2002 11:07 AM HISTORY OF SMOKING [facility] [place] [facility] Feb 11, 2002 11:35 AM QUIT TOBACCO USE 1-7 YEARS AGO [facility] [place] [facility] May 21, 2001 01:11 PM HISTORY OF SMOKING quit 5 years ago [facility] Encounter Notes: All associated encounter notes This section contains the clinical notes associated to the Encounter. Date/Time Encounter Note(s) Provider Source May 04, 2024 09:09 AM PAIN MEDICATION MGT NOTE: LOCAL TITLE: OPIOID/CONTROLLED SUBSTANCE NOTE STANDARD TITLE: PAIN MEDICATION MGT NOTE DATE OF NOTE: MAY 04, 2024@09:09 ENTRY DATE: MAY 04, 2024@09:10:03 AUTHOR: ANDREE ACUNA EXP COSIGNER: URGENCY: STATUS: COMPLETED OPIOID/CONTROLLED SUBSTANCE NOTE Controlled Substance Renewal Request REQUESTED MEDICATIONS: ZOLPIDEM TARTRATE 10MG TAB MAIL TO PATIENT A valid consent for Long-Term Opioid therapy for Pain is required for opioid duration of 90 days or greater. No CONSENT FOR LONG-TERM OPIOIDS FOR PAIN note found. Prescription Drug Monitoring Program (PDMP): A PDMP note is required at every new prescription for a controlled substance. PDMP HISTORY 1 YEAR Info Disclosed: Patient Demographics Purpose: Accessing Prescription Drug Monitoring Program (PDMP) databases for review of controlled substances prescribed outside of the VA, and any additional information that may become available, as an important component of standard clinical care and in accordance with [facility] policy. 05/11/23 14:50 Anupam Lee PDMP [facility] [place] 10/21/23 13:31 Anupam Lee PDMP [facility] [place] 12/15/23 08:52 Lexis Bustillo PDMP [facility] [place] 05/04/24 09:07 Andree Acuna PDMP [facility] [place] Urine Drug Screen: A urine drug screen is required prior to reaching 90 days of opioid therapy and at least annually thereafter. No data available for: OPIATES SCREEN OXYCODONE SCREEN METHADONE SCREEN BENZODIAZEPINES SCREEN COCAINE SCREEN CANNABINOIDS SCREEN ALCOHOL, ETHYL URINE AMPHETAMINES SCREEN BUPRENORPHINE (URINE) Ethyl Glucuronide Screen Ethyl Sulfate Ethyl Glucuronide Conf Most Recent Naloxone Prescription Information: No prior Naloxone prescription was found. /rajesh/ ANDREE ACUNA REGISTERED NURSE Signed: 05/04/2024 09:11 ANDREE ACUNA [place] [facility] [place] [facility] May 04, 2024 09:08 AM ACCOUNTING OF DISCLOSURES NOTE: LOCAL TITLE: STATE PRESCRIPTION DRUG MONITORING PROGRAM STANDARD TITLE: ACCOUNTING OF DISCLOSURES NOTE DATE OF NOTE: MAY 04, 2024@09:08:35 ENTRY DATE: MAY 04, 2024@09:08:35 AUTHOR: ANDREE ACUNA EXP COSIGNER: ANUPAM LEE URGENCY: STATUS: COMPLETED This PDMP query was submitted by Andree Acuna on behalf of Anupam Lee. The clinical justification for this PDMP query is to review controlled substances prescribed outside of the VA, and any additional information that may become available, as an important component of standard clinical care, and in accordance with [facility] policy. Patient information was shared with the PDMP [facility] [place]. The VA prescriber, for which I am a delegate, will be alerted of these PDMP findings through co-signature of this progress note. No prescription(s) for controlled substances outside the VA were found in the last 90 days. /yenny ACUNA REGISTERED NURSE Signed: 05/04/2024 09:08 /rajesh/ Anupam Lee PA-C STAFF PHYSICIAN MANAGER SOFTWARE Cosigned: 05/05/2024 17:35 ANDREE ACUNA [facility] [facility]
--- OUTSIDE RECORDS SUMMARY | 2024-07-29 08:33 | XMS_ITS | Encounter Summary ---
Author Name [facility] [place] Organization [place] Address [address] [place] [address] Care Team Providers Care Professor Of Criminal Justice Name Role Phone APOORVA MORENO Primary Care [...] [place] M[place] (WNR) MEDICARE ADVANTAGE MCR ([facility]) Apr 17, 2013 [id number] Lauren COELHO PATIENT HEALTH [place] M[place] (W[place]) MEDICARE ADVANTAGE MCR ([facility]) Apr 17, 2013 [id number] Lauren COELHO PATIENT Selected Encounter This section includes the information on record at [place] for the Encounter. Date/Time Encounter Type Encounter Description Reason Provider Source May 20, 2024 02:30 PM SELF CARE MNGMENT TRAINING PHYSICAL THERAPY ICD-10-CM M47.896 Other spondylosis, lumbar region MYNOR SKELTON Encounter Template Text not used by [facility] Assessments - Encounter Diagnoses This section includes the primary and secondary diagnoses documented for the Encounter. Date/Time Primary/Secondary Diagnosis Diagnosis Name Provider Source May 20, 2024 02:48 PM PRIMARY Other spondylosis, lumbar region MYNOR SKELTON [facility] Plan of Treatment: Future Appointments (+ 6 months) and Future Tests (+/- 45 days) The Plan of Treatment section includes future care activities for the patient [facility] [place] [facility] This section includes future appointments and future orders which are active, pending or scheduled. Future Appointments This section includes appointments that were scheduled to occur 6 months from the date of the Encounter, up to a maximum of 20 appointments. The data comes from all [place] treatment facilities. Appointment Date/Time Appointment Type Appointme nt Facility Name Jun 10, 2024 02:00 PM [facility] Jun 16, 2024 02:30 PM [facility] Jun 21, 2024 01:00 PM AM[facility]ATORY [place] [facility] [place] [facility] [place] [facility] Jun 21, 2024 02:00 PM AMBULATORY MEDICINE [place] [facility] [place] [facility] Jul 19, 2024 10:00 AM AMBULATORY - [facility]ICINE [place] [facility] [place] [facility] Aug 12, 2024 09:00 AM AM[facility]ULATORY [place] [facility]INE [place] [facility] [place] [facility] Aug 12, 2024 09:30 AM AMBULATORY - MEDICINE [facility] [place] [facility] Aug 12, 2024 10:00 AM AM[facility]ULATORY - [facility]INE [place] [facility] [place] [facility] Oct 20, 2024 11:30 AM AMBULATORY - MEDICINE [facility] [place] [facility] Lab Results: +/- 30 days of the encounter This section includes the Chemistry and Hematology Lab Results on record with [place] for the patient. Radiology Reports and Pathology Reports are provided separately, in subsequent sections. Lab Results This section contains the Chemistry/Hematology Results that were resulted 30 days before or 30 daysafter the date of the Encounter. Date/Time Source Result Type Result - Unit Interpretation Reference Range Comment Jun 14, 2024 10:20 AM [place] [facility] [place] [facility] LIPID PANEL FASTING Specimen Type: SERUM No comment entered. Ordering Provider: ROCKY MORENO Report Released Date/Time: Jun 08, 2024 11:04 AM Reporting Lab: [facility] [address] [address] Performing Lab: [address] [address] CHOLESTEROL 166 mg/dL TRIGLYCERIDE 71 mg/dL 0-150 LDL calculated 95 mg/dL 0-129 CHOL/HDL 2.9 HDL CHOLESTEROL 57 mg/dL 40-60 Jun 14, 2024 10:20 AM [facility] LIVER FUNCTION Specimen Type: SERUM No comment entered. Ordering Provider: ROCKY MORENO Report Released Date/Time: Jun 08, 2024 11:04 AM Reporting Lab: [address] [address] Performing Lab: [address] [address] PROTEIN,TOTAL 6.8 g/dL 6.0-8.3 ALBUMIN 4.0 g/dL 3.5-5.0 ALKALINE PHOSPHATASE 63 U/L 40-150 AST 18 U/L 5-34 ALT 30 U/L BILIRUBIN, TOTAL 0.8 mg/dL 0.2-1.2 Jun 14, 2024 10:20 AM [facility] BASIC METABOLIC PANEL (fasting) Specimen Type: SERUM No comment entered. Ordering Provider: ROCKY MORENO Report Released Date/Time: Jun 08, 2024 11:04 AM Reporting Lab: [address] [address] Performing Lab: [address] [address] UREA NITROGEN 21 mg/dL 7-25 GLUCOSE 105 mg/dL H 65-100 SODIUM 138 mmol/L 135-145 POTASSIUM 4.2 mmol/L 3.5-5.0 CHLORIDE 107 mmol/L 100-110 CO2 22 meq/L 20-30 CREATININE, Serum 0.74 mg/dL 0.50-1.40 eGFR(CKD-EPI 2020) >90 mL/min >60 Encounter Notes: All associated encounter notes This section contains the clinical notes associated to the Encounter. Date/Time Encounter Note(s) Provider Source May 20, 2024 02:47 PM PHYSICAL THERAPY N OTE: LOCAL TITLE: PHYSICAL THERAPY STANDARD TITLE: PHYSICAL THERAPY NOTE DATE OF NOTE: MAY 20, 2024@14:47 ENTRY DATE: MAY 20, 2024@14:47:40 AUTHOR: ALEXANDRA SKELTON COSIGNER: URGENCY: STATUS: COMPLETED Initial Evaluation date: 05/05/24 Treatment #: eval+1 Treatment time: 30 min Diagnosis: Other Spondylosis, Lumbar Region (ICD-10-CM M47.896) (Primary) Provider: Lila Pt. identified by full name and SUBJECTIVE: D Hanis states his back pain is about the same. 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 OBJECTIVE: Today's treatment: MECHANICAL TRACTION: MINUTES: 17 Intermittent mechanical traction Supine 90/90 position 45-70 lbs. for 17 minutes SELF CARE/EDUCATION: MINUTES: -- D Hanis was educated on the purpose of mechanical traction and its proposed risk and benefits. ASSESSMENT: Trialed traction today as it was request on the PT consult by the referring provider. states the traction seemed to increase his pain, as it usually does when laying supine. PLAN: If traction increased symptoms, transition to ther ex /es/ ALEXANDRA SKELTON DPT Physical Therapist Signed: 05/20/2024 15:03 ALEXANDRA SKELTON [place]
--- OUTSIDE RECORDS SUMMARY | 2024-07-29 08:33 | XMS_ITS | Encounter Summary ---
Author Name [facility] of [place] [place] Organization [place] Address [address] [place] [address] Care Team Providers Care Admitting Counselor Name Role Phone APOORVA MORENO Primary Care [...] [place] M[place] ([place] MEDICARE ADVANTAGE MCR ([facility]) Apr 17, 2013 [id number] [phone] Lauren COELHO PATIENT [facility] ([facility]) MEDICARE ADVANTAGE MCR ([facility]) Apr 17, 2013 [id number] Lauren COELHO PATIENT Selected Encounter This section includes the information on record at [place] for the Encounter. Date/Time Encounter Type Encounter Description Reason Provider Source May 05, 2024 02:30 PM SELF CARE MNGMENT TRAINING PHYSICAL THERAPY ICD-10-CM M47.896 Other spondylosis, lumbar region MYNOR SKELTON Encounter Template Text not used by [facility] Assessments - Encounter Diagnoses This section includes the primary and secondary diagnoses documented for the Encounter. Date/Time Primary/Secondary Diagnosis Diagnosis Name Provider Source May 05, 2024 03:07 PM PRIMARY Other spondylosis, lumbar region MYNOR SKELTON [place] Plan of Treatment: Future Appointments (+ 6 months) and Future Tests (+/- 45 days) The Plan of Treatment section includes [facility] care [facility] for [facility] [place] [facility]. This section includes future appointments and future orders which are active, pending or scheduled. Future Appointments This section includes appointments that were scheduled to occur 6 months from the date of the Encounter, up to a maximum of 20 appointments. The data comes from all [place] treatment facilities. Appointment Date/Time Appointment Type Appointme nt Facility Name May 20, 2024 02:30 PM [facility] Jun 10, 2024 02:00 PM [facility] Jun 16, 2024 02:30 PM [facility] Jun 21, 2024 01:00 PM AM[facility]ATORY [place] [facility] [place] [facility] Jun 21, 2024 02:00 PM AMBULATORY - MEDICINE [place] [facility] [place] [facility] Jul 19, 2024 10:00 AM AMBULATORY - MED[place]INE [place] [facility] [place] [facility] Aug 12, 2024 09:00 AM AMBULATORY - MEDICINE [place] [facility] [facility] Aug 12, 2024 09:30 AM AMBULATORY - MEDICINE [place] [facility] [place] [facility] Aug 12, 2024 10:00 AM AMBULATORY - MEDICINE [place] [facility] [facility] Oct 20, 2024 11:30 AM AMBULATORY - [place]INE [place] [facility] [facility] Encounter Notes: All associated encounter notes This section contains the clinical notes associated to the Encounter. Date/Time Encounter Note(s) Provider Source May 05, 2024 03:06 PM PHYSICAL THERAPY C ONSULT: LOCAL TITLE: PHYSICAL THERAPY CONSULT STANDARD TITLE: PHYSICAL THERAPY CONSULT DATE OF NOTE: MAY 05, 2024@15:06 ENTRY DATE: MAY 05, 2024@15:07:03 AUTHOR: ALEXANDRA SKELTON EXP COSIGNER: URGENCY: STATUS: COMPLETED Initial Evaluation date: 05/05/24 Treatment #: eval Treatment time: 40 min Diagnosis: Other Spondylosis, Lumbar Region (ICD-10-CM M47.896) (Primary) Provider: Lila Allen identified by full name and SUBJECTIVE: states he has a 10 year history of low back pain and right sided sciatica. 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 He finds that his back does not hurt while working or when standing but the pain occurs as soon as he sits down. An ablation procedure was performed 1 year ago at [facility] and he felt 50% relief lasting for 1 week. He finds that his sciatica usually affects the right hamstring region but pain can extend down to the foot along with intermittent right LE sensory changes. Date of onset: 10 years (x) Gradual ( ) Rapid ISAK: Age/occupation related Since onset: (x) Worsening ( ) Improving ( ) Staying the same C/O: (x) Pain: lower thoracic/lumbar spine. Right sciatica (x) ROM: Generalized stiffness ( ) Strength: (x) Sensation: Intermittent right leg pain Pain 0-10: Current 4/10; worst 7/10 Improves w/: Standing Increases w/: Sitting Pt. goal: Pain releif OBJECTIVE: Red Flags: (-) Significant trauma (-) Bilateral weakness (-) Bilateral sensory loss (-) Saddle anesthesia (-) Acute sexual dysfunction (-) Constipation or incontinence (-) Urinary retention or incontinence (-) Gait and balance disturbances Observation: WNL LE Neuro Screen: (R) (L) Reflexes: (0, 1+, 2+, 3+, 4+) L4 Patellar 2+ 2+ S1 Achilles 2+ 2+ Myotomes: See MMT Dermatomes: (N=Normal, D=Diminished) L1 Inguinal N N L2 Lat thigh N N L3 Medial knee N N L4 Great toe N N L5 2nd toe N N S1 Pinkey toe N N S2 Post thigh N N ROM: AROM: (R) (L) PROM (R) (L) *Pain Lumbar flex: 100% Extension: 25% Lat flex: 50% 50% MMT / Myotomes (R) (L) *pain Hip flex L2 5 5 Knee flex L5: 5 5 Extension L3 5 5 Ankle DF L4 5 5 PF S1: 5 5 Lumbar special tests (R) (L) LE Neural Tension Sitting slump (-) (-) SLR: (+) (-) Crossed SLR (-) (-) (Sn .43 Sp .97) Prone knee flex (-) (-) Stenosis Prediction Rule (-) (-) Sn is poor if = 3 tests positive Sp .88 if 3 test positive Sp .98 if 4 tests positive Bilateral Symptoms Leg pain more than back pain Pain during walking/standing Pain relief upon sitting Age > 48 years IMAGING: MRI OF LUMBAR SPINE WITHOUT CONTRAST Exm Date: APR 26, 2015@12:57 Findings: Examination is motion limited. There are 7 cervical, 12 thoracic, and 5 lumbar vertebral bodies. Straightening of the usual lumbar lordosis. Vertebral height and alignment are maintained. There is no evidence of acute fracture or subluxation. Degenerative endplate changes with Schmorl's node in the superior endplate of T12. T1 and T2 hyperintense focus within L2, most consistent with a hemangioma. There are no focal regions of bone marrow signal abnormality. The conus terminates at L1-2. Visualized cord and conus are normal in signal morphology. At T11-12, there is a mild bulge without significant canal or neural foraminal narrowing. At T12-L1, no significant canal or neural foraminal narrowing. At L1-2, no significant canal or neural foraminal narrowing. At L2-3, small central protrusion and mild bilateral facet arthrosis. There is no significant canal narrowing. Mild right neural foraminal narrowing. At L3-4, there is a bulge with central annular fissure. Mild bilateral facet arthrosis with small bilateral facet effusions. There is no significant canal narrowing. Mild bilateral neural foraminal narrowing. At L4-5, there is a bulge with superimposed central protrusion. Mild bilateral facet arthrosis with infolding of the ligamentum flavum. No significant canal narrowing. Minimal bilateral neural foraminal narrowing. At L5-S1, mild bulge and mild bilateral facet arthrosis without significant canal narrowing. Minimal bilateral neural foraminal narrowing. 10 mm T2 hyperintense focus within the lower pole the right kidney is incompletely characterized, but possibly cysts. Renal ultrasound can be performed for further evaluation if clinically indicated. Conclusion: Mild degenerative changes of the lumbar spine as detailed above. ASSESSMENT: is a 78 year old male presenting to PT with mechanical low back pain with right lower extremity nerve root irritation. 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 Will attempt to review core strengthening and proper ergonomics during PT. GOALS: 1.)Sit for 10 minutes without pain 2.)Improve lumbar extension by 25% 3.)Review proper lifting ergonomics 4.)Rx HEP in 4 visits PLAN OF CARE: Edu on plan of care. Discussed occupational duties may be a contributing factor to symptoms. TODAYS TREATMENT: Aerobic exercise. Gentle lumbar range of motion. Lower extremity stretches and nerve glides. Core stabilization. Review lifting ergonomics. Modalities for pain. 4 apointments scheduled. Thank you for this consultation and allowing the PT team to participate in this patient's care. Please do not hesitate to contact us if you have any questions. All treatments to be implemented at tolerance of pt. and discretion of therapist(s). Pt is in agreement with above goals and plan of care and will be discharged when goals are met or pt. has plateaued in progress. /rajesh/ ALEXANDRA SKELTON DPShashank Physical Therapist Signed: 05/05/2024 15:20 ALEXANDRA SKELTON [place]
--- OUTSIDE RECORDS SUMMARY | 2024-07-29 08:33 | XMS_ITS | Encounter Summary ---
Author Name Department of [place]a [place] Organization [place] Address [address] [place] [address] Care Team Providers Care Automatic Cigar Wrapper Tender Name Role Phone APOORVA MORENO Primary [...] [place]) MEDICARE ADVANTAGE MCR ([facility]) Apr 17, 2013 [id number] [phone] Lauren COELHO PATIENT [facility] ([facility]) MEDICARE ADVANTAGE MCR ([facility]) Apr 17, 2013 [id number] Lauren COELHO PATIENT Selected Encounter This section includes the information on record at [place] for the Encounter. Date/Time Encounter Type Encounter Description Reason Provider Source Jun 16, 2024 02:30 PM SELF CARE MNGMENT TRAINING PHYSICAL THERAPY ICD-10-CM M47.896 Other spondylosis, lumbar region MYNOR SKELTON Encounter Template Text not used by [facility] Assessments - Encounter Diagnoses This section includes the primary and secondary diagnoses documented for the Encounter. Date/Time Primary/Secondary Diagnosis Diagnosis Name Provider Source Jun 16, 2024 02:38 PM PRIMARY Other spondylosis, lumbar region MYNOR SKELTON [facility] Plan of Treatment: Future Appointments (+ 6 months) and Future Tests (+/- 45 days) The Plan of Treatment section includes future care activities for the patient from all [place] treatmentfacilities. This section includes future appointments and future orders which are active, pending or scheduled. Future Appointments This section includes appointments that were scheduled to occur 6 months from the date of the Encounter, up to a maximum of 20 appointments. The data comes from all [place] treatment facilities. Appointment Date/Time Appointment Type Appointme nt Facility Name Jun 21, 2024 01:00 PM AM[place]ULATORY - [place] [facility] [place] [place] [facility] Jun 21, 2024 02:00 PM AMBULATORY - MEDICINE [place] [facility] [place] [place] [facility] Jul 19, 2024 10:00 AM AMBULATORY - MEDICINE [place] [facility] [place] [facility] Aug 12, 2024 09:00 AM AMBULATORY - MEDICINE [place] [facility] [place] [facility] Aug 12, 2024 09:30 AM AMBULATORY - MEDICINE [place] [facility] [place] [facility] Aug 12, 2024 10:00 AM AMBULATORY - MEDICINE [place] [facility] [place] [facility] Oct 20, 2024 11:30 AM AMBULATORY - MEDICINE [place] [facility] [place] [facility] Lab Results: +/- 30 days of the encounter This section includes the Chemistry and Hematology Lab Results on record with [place] for the patient. Radiology Reports and Pathology Reports are provided separately, in subsequent sections. Lab Results This section contains the Chemistry/Hematology Results that were resulted 30 days before or 30 daysafter the date of the Encounter. Date/Time Source Result Type Result - Unit Interpretation Reference Range Comment Jun 14, 2024 10:20 AM [place] [facility] [place] [facility] LIPID PANEL FASTING Specimen Type: SERUM No comment entered. Ordering Provider: ROCKY MORENO Report Released Date/Time: Jun 08, 2024 11:04 AM Reporting Lab: [place] [facility] [place] [address] [address] Performing Lab: [facility] [address] [address] CHOLESTEROL 166 mg/dL TRIGLYCERIDE 71 mg/dL 0-150 LDL calculated 95 mg/dL 0-129 CHOL/HDL 2.9 HDL CHOLESTEROL 57 mg/dL 40-60 Jun 14, 2024 10:20 AM [facility] LIVER FUNCTION Specimen Type: SERUM No comment entered. Ordering Provider: ROCKY MORENO Report Released Date/Time: Jun 08, 2024 11:04 AM Reporting Lab: [address] [address] Performing Lab: [address] [address] PROTEIN,TOTAL 6.8 g/dL 6.0-8.3 ALBUMIN 4.0 g/dL 3.5-5.0 ALKALINE PHOSPHATASE 63 U/L 40-150 AST 18 U/L 5-34 ALT 30 U/L BILIRUBIN, TOTAL 0.8 mg/dL 0.2-1.2 Jun 14, 2024 10:20 AM [facility] BASIC METABOLIC PANEL (fasting) Specimen Type: SERUM No comment entered. Ordering Provider: ROCKY MORENO Report Released Date/Time: Jun 08, 2024 11:04 AM Reporting Lab: [address] [address] Performing Lab: [address] [address] UREA NITROGEN 21 mg/dL 7-25 GLUCOSE 105 mg/dL H 65-100 SODIUM 138 mmol/L 135-145 POTASSIUM 4.2 mmol/L 3.5-5.0 CHLORIDE 107 mmol/L 100-110 CO2 22 meq/L 20-30 CREATININE, Serum 0.74 mg/dL 0.50-1.40 eGFR(CKD-EPI 2020) >90 mL/min >60 Encounter Notes: All associated encounter notes This section contains the clinical notes associated to the Encounter. 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 identified by full name and SUBJECTIVE: [place] states that he is interested in discharging from PT as he does not feel it is improving his symptoms. 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 He states his pain is improved when standing and walking, rating symptoms at a 2/10. As soon as he sits or lays down pain increases to a 7/10. He is frustrated because he states he cannot sleep standing up often waking a few times per night due to pain. 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 OBJECTIVE: Today's treatment: THERAPEUTIC EXERCISE: MINUTES: 10 min Nu step 10 minutes level 4 Reviewed HEP: Access Code: [email or web address] URL: [email or web address] Date: 06/16/2024 Prepared by: Harris Skelton Exercises - Supine Lower Trunk Rotation - 1 x daily - 5 x weekly - 2 sets - 15-25 reps - Supine LE Neural Mobilization - 1 x daily - 5 x weekly - 2 sets - 15-25 reps - Supine Piriformis Stretch with Foot on Ground - 1 x daily - 5 x weekly - 2 sets - 2 reps - 30 hold - Supine Bridge - 1 x daily - 5 x weekly - 2 sets - 15-25 reps - Bridge with Heels on Scottish Ball - 1 x daily - 5 x weekly - 2 sets - 15-25 reps - Abdominal Press into Ball and Roll - 1 x daily - 5 x weekly - 2 sets - 10 reps - 5 hold - Bird Dog - 1 x daily - 5 x weekly - 2 sets - 15-25 reps SELF CARE/EDUCATION: MINUTES: -- [place] was educated on the implementation of the home exercise routine. They were able to verbalize and comprehend the purpose of the movements and could perform the activities independently. ROM: AROM: (R) (L) PROM (R) (L) *Pain Lumbar flex: 100% Extension: 25% MMT / Myotomes (R) (L) *pain Hip flex L2 5 5 Knee flex L5: 5 5 Extension L3 5 5 Ankle DF L4 5 5 PF S1: 5 5 Lumbar special tests (R) (L) LE Neural Tension Sitting slump (-) (-) SLR: (-) (-) Crossed SLR (-) (-) (Sn .43 Sp .97) Prone knee flex (-) (-) ASSESSMENT: Limited progress made in PT. States that most of the interventions including traction and exercise do not appear to help his pain as his symptoms increase when supine. At this time he wishes to discharge from one on one PT to explore other treatment options. GOALS: 1.)Sit for 10 minutes without pain -Not met 2.)Improve lumbar extension by 25% -Not met 3.)Review proper lifting ergonomics -Discussed 4.)Rx HEP in 4 visits -MET PLAN: Discharged from PT per vets request and lack of progress towards goals. [place] wishes to f/u rehab med and PCP. /rajesh/ HARRIS SKELTON DPShashank Physical Therapist Signed: 06/16/2024 14:59 HARRIS SKELTON [place]
--- OUTSIDE RECORDS SUMMARY | 2024-07-29 08:33 | XMS_ITS | Encounter Summary ---
Author Name [facility] [place] Organization [place] Address [address] [place] [address] Care Team Providers Care Fire Tender Name Role Phone APOORVA MORENO Primary [...] Name Patient's Relationship to Policy Hare [facility] ([facility]) MEDICARE ADVANTAGE MCR ([facility]) Apr 17, 2013 [id number] [phone] Lauren COELHO PATIENT [facility] ([facility]) MEDICARE ADVANTAGE MCR ([facility]) Apr 17, 2013 [id number] Lauren COELHO PATIENT Selected Encounter This section includes the information on record at [place] for the Encounter. Date/Time Encounter Type Encounter Description Reason Pro vider Source Jun 14, 2024 10:38 AM Outpatient Encounter PRIMARY CARE/MEDICINE IHE Encounter Template Text not used by [place] Plan of Treatment: Future Appointments (+ 6 months) and Future Tests (+/- 45 days) The Plan of Treatment section includes future care activities for the [facility] [place] [facility] This section includes future appointments and future orders which are active, pending or scheduled. Future Appointments This section includes appointments that were scheduled to occur 6 months from the date of the Encounter, up to a maximum of 20 appointments. The data comes from all [place] treatment facilities. Appointment Date/Time Appointment Type Appointme nt Facility Name Jun 16, 2024 02:30 PM AMBULATORY - REHAB [facility] Jun 21, 2024 01:00 PM AMBULATORY - MEDICINE [place] [facility] [place] [facility] Jun 21, 2024 02:00 PM AMBULATORY - MEDICINE [place] [facility] [place] [facility] Jul 19, 2024 10:00 AM AMBULATORY MEDICINE [place] [facility] [place] [facility] Aug 12, 2024 09:00 AM AMBULATORY MEDICINE [place] [facility] [place] [facility] Aug 12, 2024 09:30 AM AMBULATORY MEDICINE [place] [facility] [place] [facility] Aug 12, 2024 10:00 AM AMBULATORY MEDICINE [place] [facility] [place] [facility] Oct 20, 2024 11:30 AM AMBULATORY - MEDICINE [place] [facility] [place] [facility] Lab Results: +/- 30 days of the encounter This section includes the Chemistry and Hematology Lab Results on record with [place] for the patient. Radiology Reports and Pathology Reports are provided separately, in subsequent sections. Lab Results This section contains the Chemistry/Hematology Results that were resulted 30 days before or 30 daysafter the date of the Encounter. Date/Time Source Result Type Result - Unit Interpretation Reference Range Comment Jun 14, 2024 10:20 [facility] LIPID PANEL FASTING Specimen Type: SERUM No comment entered. Ordering Provider: ROCKY MORENO Report Released Date/Time: Jun 08, 2024 11:04 AM Reporting Lab: [address] [address] Performing Lab: [address] [address] CHOLESTEROL 166 mg/dL TRIGLYCERIDE 71 mg/dL 0-150 LDL calculated 95 mg/dL 0-129 CHOL/HDL 2.9 HDL CHOLESTEROL 57 mg/dL 40-60 Jun 14, 2024 10:20 AM [facility] LIVER FUNCTION Specimen Type: SERUM No comment entered. Ordering Provider: ROCKY MORENO Report Released Date/Time: Jun 08, 2024 11:04 AM Reporting Lab: [facility] [address] [facility] [address] Performing Lab: [address] [address] PROTEIN,TOTAL 6.8 g/dL 6.0-8.3 ALBUMIN 4.0 g/dL 3.5-5.0 ALKALINE PHOSPHATASE 63 U/L 40-150 AST 18 U/L 5-34 ALT 30 U/L BILIRUBIN, TOTAL 0.8 mg/dL 0.2-1.2 Jun 14, 2024 10:20 AM [facility] BASIC METABOLIC PANEL (fasting) Specimen Type: SERUM No comment entered. Ordering Provider: ROCKY MORENO Report Released Date/Time: Jun 08, 2024 11:04 AM Reporting Lab: [facility] [address] [address] Performing Lab: [address] [address] UREA NITROGEN 21 mg/dL 7-25 GLUCOSE 105 mg/dL H 65-100 SODIUM 138 mmol/L 135-145 POTASSIUM 4.2 mmol/L 3.5-5.0 CHLORIDE 107 mmol/L 100-110 CO2 22 meq/L 20-30 CREATININE, Serum 0.74 mg/dL 0.50-1.40 eGFR(CKD-EPI 2020) >90 mL/min >60 Social History: Smoking Status (Most current) and Tobacco Use (All prior to encounter date) This section includes the most current, and the historical, smoking and tobacco- related health factors from the [place] facility where the Encounter took place. Current Smoking Status This section includes the most current smoking, or tobacco-related health factor, from the [place] facility where the Encounter took place. Date/Time Current Smoking Status Comment Facil [facility] Nov 17, 2023 11:30 AM VA-TOBACCO QUIT 15 YRS OR MORE [facility] Tobacco Use History This section includes a history of the smoking, or tobacco-related health factors, that were collected on or before the date of the Encounter. The data comes from the [place] facility where the Encounter took place. Date/Time Smoking Status/Tobac co Use Comment Facility Nov 17, 2023 11:30 AM VA-TOBACCO QUIT 15 YRS OR MORE [place] [facility] [place] [facility] Oct 30, 2022 03:20 PM VA-TOBACCO FORMER USER [facility] [place] [facility] Oct 30, 2022 03:20 PM VA-TOBACCO QUIT 15 YRS OR MORE [place] [facility] [place] [facility] Jul 31, 2021 09:41 AM VA-TOBACCO FORMER USER [facility] [place] [facility] Jul 31, 2021 09:41 AM VA-TOBACCO QUIT 15 YRS OR MORE [facility] [place] [facility] Jun 29, 2020 11:00 AM VA-TOBACCO FORMER USER [place] [facility] [place] [facility] Jun 29, 2020 11:00 AM VA-TOBACCO QUIT 15 YRS OR MORE [place] [facility] [place] [facility] Feb 10, 2019 10:14 AM VA-TOBACCO FORMER USER [place] [facility] [place] [facility] Feb 10, 2019 10:14 AM VA-TOBACCO QUIT 15 YRS OR MORE [place] [facility] [place] [facility] Nov 27, 2017 11:12 AM QUIT TOBACCO USE > 7 YEARS AGO [facility] [place] [place] [facility] Nov 05, 2016 11:01 AM QUIT TOBACCO USE > 7 YEARS AGO [facility] [place] [facility] Sep 17, 2015 01:03 PM QUIT TOBACCO USE > 7 YEARS AGO stopped 20 years ago [facility] [place] [facility] Feb 24, 2005 10:09 AM HISTORY OF SMOKING [place] [facility] [place] [facility] May 28, 2004 08:08 AM QUIT TOBACCO USE > 7 YEARS AGO [facility] [place] [facility] Nov 27, 2003 01:12 PM HISTORY OF SMOKING [facility] [place] [facility] Mar 15, 2003 02:03 PM QUIT TOBACCO USE 1-7 YEARS AGO [facility] [place] [place] [facility] Aug 24, 2002 11:07 AM HISTORY OF SMOKING [facility] [place] [facility] Feb 11, 2002 11:35 AM QUIT TOBACCO USE 1-7 YEARS AGO [facility] May 21, 2001 01:11 PM HISTORY OF SMOKING quit 5 years ago [facility] Encounter Notes: All associated encounter notes This section contains the clinical notes associated to the Encounter. Date/Time Encounter Note(s) Provider Source Jun 14, 2024 10:38 AM ADMINISTRATIVE NOTE: LOCAL TITLE: FAX/MAIL RECEIVED STANDARD TITLE: ADMINISTRATIVE NOTE DATE OF NOTE: JUN 14, 2024@10:38 ENTRY DATE: JUN 14, 2024@10:38:21 AUTHOR: DANA REEVES EXP COSIGNER: URGENCY: STATUS: COMPLETED Document Received On: May Document Type: Office Visit Note CARDIOVASCULAR NOTES Date of Service: various [place] and or Provider[place] [facility] Contact Information: brought in records. PCP of Record: APOORVA MORENO Next visit with PCP: 06/16/2024 14:30 CWM/SO/PHYSICAL THERAPY B 06/21/2024 13:00 CWM/NO/MED REHAB 1 PA 06/21/2024 14:00 CWM/NO/PACT 3 Primary Care May keep copies of this document for up to 14 days and send the original for scanning. /rajesh/ DANA REEVES AMSA Signed: 06/14/2024 10:40 DANA REEVES [facility]
--- OUTSIDE RECORDS SUMMARY | 2024-07-29 08:33 | XMS_ITS ---
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 Date/Time Encounter Type Encounter Description Reason Provider Source Jun 21, 2024 01:00 PM OFFICE O/P EST LOW 20 MIN PM&RS PHYSICIAN ICD-10-CM M47.26 Other spondylosis with radiculopathy, lumbar region PEREIRA,JOSE ALBERTO L L IHE Encounter Template Text not used by [place] Assessments - Encounter Diagnoses This section includes the primary and secondary diagnoses documented for the Encounter. Date/Time Primary/Secondary Diagnosis Diagnosis Name Provider Source Jun 21, 2024 01:37 PM PRIMARY Other spondylosis with radiculopathy, lumbar region JOSE ALBERTO [facility]EREIRA [facility] Jun 21, 2024 01:37 PM SECONDARY Oth intvrt disc degen, lum rgn w discog bck & lw extrm pain JOSE ALBERTO PEREIRA [facility] Plan of Treatment: Future Appointments (+ 6 months) and Future Tests (+/- 45 days) The Plan of Treatment section includes future care activities for the patient [facility] [place] [facility] This section includes future appointments and future orders which are active, pending or scheduled. Future Appointments This section includes appointments that were scheduled to occur 6 months from the date of the Encounter, up to a maximum of 20 appointments. The data comes from all [place] treatment facilities. Appointment Date/Time Appointment Type Appointme nt Facility Name Jul 19, 2024 10:00 AM AMBULATORY - MEDIC[facility] Aug 12, 2024 09:00 AM AMBULATORY - MEDICINE [facility] [facility] Aug 12, 2024 09:30 AM AMBULATORY MEDICINE [facility] [place] [facility] Aug 12, 2024 10:00 AM AMBULATORY MEDICINE [facility] [place] [facility] Oct 20, 2024 11:30 AM AM[facility]ULAT[facility] Lab Results: +/- 30 days [...] Range Comment Jun 14, 2024 10:20 AM [facility] LIVER FUNCTION Specimen Type: SERUM No comment entered. Ordering Provider: ROCKY MORENO Report Released Date/Time: Jun 08, 2024 11:04 AM Reporting Lab: [facility] [address] [facility] [address] Performing Lab: [address] [address] PROTEIN,TOTAL 6.8 g/dL 6.0-8.3 ALBUMIN 4.0 g/dL 3.5-5.0 ALKALINE PHOSPHATASE 63 U/L 40-150 AST 18 U/L 5-34 ALT 30 U/L BILIRUBIN, TOTAL 0.8 mg/dL 0.2-1.2 Jun 14, 2024 10:20 AM [facility] BASIC METABOLIC PANEL (fasting) Specimen Type: SERUM No comment entered. Ordering Provider: ROCKY MORENO Report Released Date/Time: Jun 08, 2024 11:04 AM Reporting Lab: [address] [address] Performing Lab: [address] [address] UREA NITROGEN 21 mg/dL 7-25 GLUCOSE 105 mg/dL H 65-100 SODIUM 138 mmol/L 135-145 POTASSIUM 4.2 mmol/L 3.5-5.0 CHLORIDE 107 mmol/L 100-110 CO2 22 meq/L 20-30 CREATININE, Serum 0.74 mg/dL 0.50-1.40 eGFR(CKD-EPI 2020) >90 mL/min >60 Jun 14, 2024 10:20 AM [facility] LIPID PANEL FASTING Specimen Type: SERUM No comment entered. Ordering Provider: ROCKY MORENO Report Released Date/Time: Jun 08, 2024 11:04 AM Reporting Lab: [address] [address] Performing Lab: [address] [address] CHOLESTEROL 166 mg/dL TRIGLYCERIDE 71 mg/dL 0-150 LDL calculated 95 mg/dL 0-129 CHOL/HDL 2.9 HDL CHOLESTEROL 57 mg/dL 40-60 Vital Signs: All taken on the encounter date This section contains inpatient and outpatient Vital Signs collected on the date of the Encounter. Date/Time Temperature Pulse Blood Pressure Respiratory Rate SP02 Pain Height Weight Body Mass Index Source Jun 21, 2024 01:43 PM 98.1 69 148/88 20 96 4 67 196 31 [facility] [place] [facility] Jun 21, 2024 12:58 PM 140/70 5 [facility] [place] [facility] Social History: Smoking Status (Most [...] took place. Date/Time Current Smoking Status Comment [facility] it Nov 17, 2023 11:30 AM VA-TOBACCO QUIT 15 YRS OR MORE [place] [facility] [place] [facility] Tobacco Use History This section includes a history of the smoking, or tobacco-related health factors, that were collected on or before the date of the Encounter. The data comes from the [place] facility where the Encounter took place. Date/Time Smoking Status/Tobac co Use Comment Facility Nov 17, 2023 11:30 AM VA-TOBACCO QUIT 15 YRS OR MORE [facility] [place] [facility] Oct 30, 2022 03:20 PM VA-TOBACCO FORMER USER [facility] [place] [facility] Oct 30, 2022 03:20 PM VA-TOBACCO QUIT 15 YRS OR MORE [facility] [place] [facility] Jul 31, 2021 09:41 AM VA-TOBACCO FORMER USER [facility] [place] [facility] Jul 31, 2021 09:41 AM VA-TOBACCO QUIT 15 YRS OR MORE [facility] [place] [facility] Jun 29, 2020 11:00 AM VA-TOBACCO FORMER USER [facility] [place] [facility] Jun 29, 2020 11:00 AM VA-TOBACCO QUIT 15 YRS OR MORE [facility] [place] [facility] Feb 10, 2019 10:14 AM VA-TOBACCO FORMER USER [facility] [place] [facility] Feb 10, 2019 10:14 AM VA-TOBACCO QUIT 15 YRS OR MORE [facility] [place] [facility] Nov 27, 2017 11:12 AM QUIT TOBACCO USE > [facility] [place] [facility] Nov 05, 2016 11:01 AM QUIT TOBACCO USE > 7 YEARS AGO [place] [facility] [place] [facility] Sep 17, 2015 01:03 PM QUIT TOBACCO USE > 7 YEARS AGO stopped 20 years ago [facility] Feb 24, 2005 10:09 AM HISTORY OF SMOKING [facility] May 28, 2004 08:08 AM QUIT TOBACCO USE > 7 YEARS A[facility] Nov 27, 2003 01:12 PM HISTORY OF SMOKING [facility] Mar 15, 2003 02:03 PM QUIT TOBACCO USE 1-7 YEARS AGO [facility] Aug 24, 2002 11:07 AM H[facility]ORY [facility] Feb 11, 2002 11:35 AM QUIT TOBACCO USE 1-7 YEARS AGO [facility] May 21, 2001 01:11 PM HISTORY OF SMOKING quit 5 years ago [facility] Encounter Notes: All associated encounter notes This section contains the clinical notes associated to the Encounter. Date/Time Encounter Note(s) Provider Source Jun 21, 2024 01:12 PM PHYSICAL MEDICINE REHAB PHYSICIAN NOTE: LOCAL TITLE: PM&R FOLLOW-UP STANDARD TITLE: PHYSICAL MEDICINE REHAB PHYSICIAN NOTE DATE OF NOTE: JUN 21, 2024@13:12 ENTRY DATE: JUN 21, 2024@13:12:47 AUTHOR: JEREMIE PEREIRA COSIGNER: URGENCY: STATUS: COMPLETED JUN 21, 2024 HANH COELHO is a 78 y/o MALE who presents today for follow-up of low bck and right leg pain. Started about ten years ago. He has a [employer]. He has never had a problem at work. 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 The pain has always gone down the right leg. He recalls sitting issues on planes etc years ago. He gets some relief with ibuprofen 600 mg during the day. He did not try acupuncture or chiro but does not think it would be helpful. He went to PT trying to address the piriformis. He is able to sit for a few minutes but offloads the right buttock. He is unable to lie flat. His pain is on the inside of the right thigh. Pain from testicle going down the medial aspect to the knee. PMHx as obtained from Chart: Active problems - Computerized Problem List is the source for the followin. Thoracic aortic aneurysm without rupture 2. Exposure to potentially hazardous substance 3. History of implantation of penile prosthesis 4. Cancer of prostate 5. Sciatica 6. Benign essential hypertension (SNOMED CT [id number]) 7. Hypogonadism 8. Screening for Malignant Neoplasms of colon 9. Hearing loss * 10. Tinnitus * 11. Chronic sinusitis 12. Impaired FASTING Glucose 13. Hyperlipidemia * 14. Allergic rhinitis * 15. Diverticulitis, Colonic * 16. Hypertrophy (Benign) of Prostate without Urinary obstruction 17. GERD * 18. Insomnia * 19. Herpes Genitalis 20. DIAPHRAGMATIC HERNIA 21. CALCULUS OF KIDNEY 22. former smoker Soc Hx: MARITAL STATUS - AIR [employer] FROM Jan TO Jan ALL: SULFONAMIDE/RELATED ANTIMICROBIALS, AUGMENTIN MEDS: Reviewed and Reconciled ROS: Constitutional - Denies fever or chills, night sweats, or unexplained weight loss. Head/Eyes/Ears/Neck- Denies headaches, visual changes. Cardiovascular - Denies chest pain/tightness, lower extremity swelling. Respiratory - Denies shortness of breath, or cough. GI - Denies nausea, vomiting, or loss of bowel fx/control. - Denies pelvic pain or loss of bladder function. Musculoskeletal - See HPI. Neuro - Denies numbness or tingling of the extremities. Skin/integuments - Denies rashes, lesions, or skin breakdown in the extremities. All other systems reviewed and are negative. PHYSICAL EXAMINATION: Vitals in chart. GEN: WD, WN. Awake, alert, cooperative with exam. PSYCH: Good eye contact. Appropriate affect and social interaction. HEENT: Normocephalic, atraumatic. CVS: Extremities warm/well perfused. No lower extremity edema. PULM: Breathing unlabored, no accessory muscle use. ABD: Nondistended. EXTREMITIES: No cyanosis or edema of bilateral upper and lower extremities. MUSCULOSKELETAL EXAM: Exam demonstrates a 78-year-old gentleman. He appears uncomfortable sitting. He offsets the right buttock. He has a difficult time lying down. He has no pain in the hip with internal and external rotation. No tenderness over the sciatic notch no tenderness over the ischial bursa. There is tightness within the right hamstring. He has minimal discomfort with palpation over the lumbar facets. Right lateral flexion does reproduce some symptoms radiating into the hamstring. He has 2+ reflexes at the knee and ankle. He ambulates with a wide-based gait but reciprocal. He is and has good strength with abduction and abduction as well as knee flexion against resistance. No reflex abnormalities noted. Diagnostic Studies: MRI is pending for next week. ASSESSMENT/PLAN: Patient is a 78-year-old with facet mediated pain as well as pelvic pain. Underlying etiology is unclear. He has MRI pending for next week and we will review outcome. If an adequate explanation is not identified then further consideration to pelvic MRI scan with contrast would be given. He is actively involved in the [place] pain clinic so there is some duplication of services. They have ordered the MRI scan. Provider is considering our FNA which would be a reasonable option. PT has not been terribly helpful. FOLLOW-UP: Potential risks and side effects of any medication(s) prescribed today was reviewed with . Patient had many excellent questions, which I answered to the best of my ability and to patient's apparent satisfaction. MDM: minutes which includes reviewing records, evaluating patient, documenting in medical record, educating, counseling and coordinating care. /rajesh/ JEREMIE PEREIRA [facility] Signed: 06/21/2024 13:37 JEREMIE PEREIRA [place] [facility] [place] [facility]
--- OUTSIDE RECORDS SUMMARY | 2024-07-29 08:33 | XMS_ITS | Encounter Summary ---
Author Name [facility] [place] [facility] [place] Address [address] [place] [address] Care Team Providers Care Signwriter Name Role Phone APOORVA MORENO Primary Care [...] [place] MCR (WNR) MEDICARE ADVANTAGE MCR ([facility]) Apr 17, 2013 [id number] [phone] Lauren COELHO PATIENT [facility] MEDICARE ADVANTAGE MCR ([facility]) Apr 17, 2013 [id number] Lauren COELHO PATIENT Selected Encounter This section includes the information on record at [place] for the Encounter. Date/Time Encounter Type Encounter Description Reason Provider Source Jun 10, 2024 02:00 PM THERAPEUTIC EXERCISES PHYSICAL THERAPY ICD-10-CM M47.896 Other spondylosis, lumbar region YI SKELTON Brannon Encounter Template Text not used by [facility] Assessments - Encounter Diagnoses This section includes the primary and secondary diagnoses documented for the Encounter. Date/Time Primary/Secondary Diagnosis Diagnosis Name Provider Source Jun 10, 2024 02:31 PM PRIMARY Other spondylosis, lumbar region MYNOR SKELTON [facility] [place] Plan of Treatment: Future Appointments (+ 6 months) and Future Tests (+/- 45 days) The Plan of Treatment section includes future care activities for the patient from all [place] [facility]. This section includes future appointments and future orders which are active, pending or scheduled. Future Appointments This section includes appointments that were scheduled to occur 6 months from the date of the Encounter, up to a maximum of 20 appointments. The data comes from all [place] treatment facilities. Appointment Date/Time Appointment Type Appointme nt Facility Name Jun 16, 2024 02:30 PM [facility] Jun 21, 2024 01:00 PM [place] [facility] [place] [place] [facility] Jun 21, 2024 02:00 PM [place] [facility] Jul 19, 2024 10:00 AM [place]ORY [place] [facility] [place] [facility] Aug 12, 2024 09:00 AM [place] [facility] [place] [facility] Aug 12, 2024 09:30 AM [place]ORY [place] [facility] Aug 12, 2024 10:00 AM [place]ORY [place] [facility] Oct 20, 2024 11:30 AM AMBULATORY - MEDICINE [facility] [place] [facility] Lab Results: +/- 30 days of the encounter This section includes the Chemistry and Hematology Lab Results on record with [place] for the patient. Radiology Reports and Pathology Reports are provided separately, in subsequent sections. Lab Results This section contains the Chemistry/Hematology Results that were resulted 30 days before or 30 daysafter the date of the Encounter. Date/Time Source Result Type Result - Unit Interpretation Reference Range Comment Jun 14, 2024 10:20 AM [place] [facility] LIPID PANEL FASTING Specimen Type: SERUM No comment entered. Ordering Provider: ROCKY MORENO Report Released Date/Time: Jun 08, 2024 11:04 AM Reporting Lab: [facility] [address] [address] Performing Lab: [facility] [address] [address] CHOLESTEROL 166 mg/dL TRIGLYCERIDE 71 mg/dL 0-150 LDL calculated 95 mg/dL 0-129 CHOL/HDL 2.9 HDL CHOLESTEROL 57 mg/dL 40-60 Jun 14, 2024 10:20 AM [facility] LIVER FUNCTION Specimen Type: SERUM No comment entered. Ordering Provider: ROCKY MORENO Report Released Date/Time: Jun 08, 2024 11:04 AM Reporting Lab: [facility] [address] [address] Performing Lab: [address] [address] PROTEIN,TOTAL 6.8 g/dL 6.0-8.3 ALBUMIN 4.0 g/dL 3.5-5.0 ALKALINE PHOSPHATASE 63 U/L 40-150 AST 18 U/L 5-34 ALT 30 U/L BILIRUBIN, TOTAL 0.8 mg/dL 0.2-1.2 Jun 14, 2024 10:20 AM [facility] BASIC METABOLIC PANEL (fasting) Specimen Type: SERUM No comment entered. Ordering Provider: ROCKY MORENO Report Released Date/Time: Jun 08, 2024 11:04 AM Reporting Lab: [address] [address] Performing Lab: [address] [address] UREA NITROGEN 21 mg/dL 7-25 GLUCOSE 105 mg/dL H 65-100 SODIUM 138 mmol/L 135-145 POTASSIUM 4.2 mmol/L 3.5-5.0 CHLORIDE 107 mmol/L 100-110 CO2 22 meq/L 20-30 CREATININE, Serum 0.74 mg/dL 0.50-1.40 eGFR(CKD-EPI 2020) >90 mL/min >60 Encounter Notes: All associated encounter notes This section contains the clinical notes associated to the Encounter. Date/Time Encounter Note(s) Provider Source Jun 10, 2024 02:30 PM PHYSICAL THERAPY N OTE: LOCAL TITLE: PHYSICAL THERAPY STANDARD TITLE: PHYSICAL THERAPY NOTE DATE OF NOTE: JUN 10, 2024@14:30 ENTRY DATE: JUN 10, 2024@14:31 AUTHOR: HARRIS SKELTON COSIGNER: URGENCY: STATUS: COMPLETED Initial Evaluation date: 05/05/24 Treatment #: eval+2 Treatment time: 30 min Diagnosis: Other Spondylosis, Lumbar Region (ICD-10-CM M47.896) (Primary) Provider: Lila Allen identified by full name and SUBJECTIVE: states the traction made his low back pain worse for a few days. 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 OBJECTIVE: Today's treatment: THERAPEUTIC EXERCISE: MINUTES: 30 Access Code: [email or web address] URL: [email or web address] Date: 06/10/2024 Prepared by: Harris Skelton Exercises - Supine [...] 15-25 reps - Bridge with Heels on Rwandan Ball - 1 x daily - 5 x weekly - 2 sets - 15-25 reps - Abdominal Press into Ball and Roll - 1 x daily - 5 x weekly - 2 sets - 10 reps - 5 hold - Bird Dog - 1 x daily - 5 x weekly - 2 sets - 15-25 reps SELF CARE/EDUCATION: MINUTES: -- Austin was educated on the implementation of the home exercise routine. They were able to verbalize and comprehend the purpose of the movements and could perform the activities independently. Issued and educated to use a lumbar brace. To use when installing fencing to improve lumbar ergonomics. ASSESSMENT: Advised his occupational duties are likely the cause of his low back pain. He does not believe this as he does not work in the winter and continues to have pain. Suspect cumulative stress has caused degenerative changes. PLAN: Cont. per POC /es/ HARRIS SKELTON DPT Physical Therapist Signed: 06/10/2024 15:02 HARRIS SKELTON [place]
--- OUTSIDE RECORDS SUMMARY | 2024-07-29 08:33 | XMS_ITS | Encounter Summary ---
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) Apr 17, 2013 [id number] [phone] Lauren COELHO PATIENT [facility] ([facility]) MEDICARE ADVANTAGE MCR ([facility]) Apr 17, 2013 [id number] Lauren COELHO PATIENT Selected Encounter This section includes the information on record at [place] for the Encounter. Date/Time Encounter Type Encounter Description Reason Provider Source Jun 21, 2024 02:00 PM OFFICE O/P EST LOW 20 MIN PRIMARY CARE/MEDICINE ICD-10-CM I11.9 Hypertensive heart disease without heart failure ROCKY LEE IHE Encounter Template Text not used by [place] Assessments - Encounter Diagnoses This section includes the primary and secondary diagnoses documented for the Encounter. Date/Time Primary/Secondary Diagnosis Diagnosis Name Provider Source Jun 21, 2024 02:09 PM PRIMARY Hypertensive heart disease without heart failure ROCKY LEE [facility] [place] [facility] Jun 21, 2024 02:09 PM SECONDARY Carcinoma in situ of prostate [facility]OCKY LEE [facility] Jun 21, 2024 02:09 PM SECONDARY Encounter for immunization LIUDMILA NIETO [facility] Plan of Treatment: Future Appointments (+ 6 months) and Future Tests (+/- 45 days) The Plan of Treatment section includes future care activities for the patient from all [place] treatmentfacilities. This section includes future appointments and future orders which are active, pending or scheduled. Future Appointments This section includes appointments that were scheduled to occur 6 months from the date of the Encounter, up to a maximum of 20 appointments. The data comes from all [place] treatment facilities. Appointment Date/Time Appointment Type Appointme nt Facility Name Jul 19, 2024 10:00 AM AMBULATORY - [facility] Aug 12, 2024 09:00 AM AMBULATORY MEDICINE [facility] [facility] Aug 12, 2024 09:30 AM AMBULATORY MEDICINE [facility] [facility] Aug 12, 2024 10:00 AM AMBULATORY MEDICINE [facility] [place] [facility] Oct 20, 2024 11:30 AM [facility] Lab Results: +/- 30 days of the encounter This section includes the Chemistry and Hematology Lab Results on record with [place] for the patient. Radiology Reports and Pathology Reports are provided separately, in subsequent sections. Lab Results This section contains the Chemistry/Hematology Results that were resulted 30 days before or 30 daysafter the date of the Encounter. Date/Time Source Result Type Result - Unit Interpretation Reference Range Comment Jun 14, 2024 10:20 AM [facility] LIPID PANEL FASTING Specimen Type: SERUM No comment entered. Ordering Provider: ROCKY LEE Report Released Date/Time: Jun 08, 2024 11:04 AM Reporting Lab: [facility] [address] [address] Performing Lab: [address] [address] CHOLESTEROL 166 mg/dL TRIGLYCERIDE 71 mg/dL 0-150 LDL calculated 95 mg/dL 0-129 CHOL/HDL 2.9 HDL CHOLESTEROL 57 mg/dL 40-60 Jun 14, 2024 10:20 AM [facility] LIVER FUNCTION Specimen Type: SERUM No comment entered. Ordering Provider: ROCKY LEE Report Released Date/Time: Jun 08, 2024 11:04 AM Reporting Lab: [address] [address] Performing Lab: [address] [address] PROTEIN,TOTAL 6.8 g/dL 6.0-8.3 ALBUMIN 4.0 g/dL 3.5-5.0 ALKALINE PHOSPHATASE 63 U/L 40-150 AST 18 U/L 5-34 ALT 30 U/L BILIRUBIN, TOTAL 0.8 mg/dL 0.2-1.2 Jun 14, 2024 10:20 AM [facility] BASIC METABOLIC PANEL (fasting) Specimen Type: SERUM No comment entered. Ordering Provider: ROCKY LEE Report Released Date/Time: Jun 08, 2024 11:04 AM Reporting Lab: [address] [address] Performing Lab: [address] [address] UREA NITROGEN 21 mg/dL 7-25 GLUCOSE 105 mg/dL H 65-100 SODIUM 138 mmol/L 135-145 POTASSIUM 4.2 mmol/L 3.5-5.0 CHLORIDE 107 mmol/L 100-110 CO2 22 meq/L 20-30 CREATININE, Serum 0.74 mg/dL 0.50-1.40 eGFR(CKD-EPI 2020) >90 mL/min >60 Vital Signs: All taken on the encounter date This section contains inpatient and outpatient Vital Signs collected on the date of the Encounter. Date/Time Temperature Pulse Blood Pressure Respiratory Rate SP02 Pain Height Weight Body Mass Index Source Jun 21, 2024 01:43 PM 98.1 69 148/88 20 96 4 67 196 31 [facility] [place] [facility] Jun 21, 2024 12:58 PM 140/70 5 [facility] [place] [facility] Immunizations: All administered on the encounter date This section contains immunizations associated to the Encounter. Immunization Series Date Issued Reaction Comments COVID-19 (MODERNA), MRNA, LN P-S, PF, 50 MCG/0.5 ML (AGES 12+ YEARS) Jun 21, 2024 INFLUENZA, HIGH-DOSE, TRIVALENT, PF Jun 21 Social History: Smoking Status (Most current) and Tobacco Use (All prior to encounter date) This section includes the most current, and the historical, smoking and tobacco- related health factors from the [place] facility where the Encounter took place. Current Smoking Status This section includes the most current smoking, or tobacco-related health factor, from the [place] facility where the Encounter took place. Date/Time Current Smoking Status Comment [facility] Nov 17, 2023 11:30 AM VA-TOBACCO FORMER USER [place] [facility] [facility] Tobacco Use History This section includes a history of the smoking, or tobacco-related health factors, that were collected on or before the date of the Encounter. The data comes from the [place] facility where the Encounter took place. Date/Time Smoking Status/Tobac co Use Comment [facility] Nov 17, 2023 11:30 AM VA-TOBACCO QUIT 15 YRS OR MORE [facility] [place] [facility] Oct 30, 2022 03:20 PM VA-TOBACCO FORMER USER [facility] [place] [facility] Oct 30, 2022 03:20 PM VA-TOBACCO QUIT 15 YRS OR MORE [facility] [place] [facility] Jul 31, 2021 09:41 AM VA-TOBACCO FORMER USER [facility] [place] [facility] Jul 31, 2021 09:41 AM VA-TOBACCO QUIT 15 YRS OR MORE [facility] [place] [facility] Jun 29, 2020 11:00 AM VA-TOBACCO FORMER USER [facility] [place] [facility] Jun 29, 2020 11:00 AM VA-TOBACCO QUIT 15 YRS OR MORE [place] [facility] [place] [facility] Feb 10, 2019 10:14 AM VA-TOBACCO FORMER USER [place] [facility] [place] [facility] Feb 10, 2019 10:14 AM VA-TOBACCO QUIT 15 YRS OR MORE [place] [facility] [place] [facility] Nov 27, 2017 11:12 AM QUIT TOBACCO USE > 7 YEARS AGO [facility] [place] [facility] Nov 05, 2016 11:01 AM QUIT TOBACCO USE > 7 YEARS AGO [facility] [place] [facility] Sep 17, 2015 01:03 PM QUIT TOBACCO USE > 7 YEARS AGO [facility] 20 years ago [facility] [place] [facility] Feb 24, 2005 10:09 AM HISTORY OF SMOKING [place] [facility] [place] [facility] May 28, 2004 08:08 AM QUIT TOBACCO USE > 7 YEARS AGO [place] [facility] [place] [facility] Nov 27, 2003 01:12 PM HISTORY OF SMOKING [place] [facility] [place] [facility] Mar 15, 2003 02:03 PM QUIT TOBACCO USE 1-7 YEARS AGO [place] [facility] [place] [facility] Aug 24, 2002 11:07 AM HISTORY OF SMOKING [place] [facility] [place] [facility] Feb 11, 2002 11:35 AM QUIT TOBACCO USE 1-7 YEARS AGO [place] [facility] [place] [facility] May 21, 2001 01:11 PM HISTORY OF SMOKING quit 5 years ago [facility] Encounter Notes: All associated encounter notes This section contains the clinical notes associated to the Encounter. Date/Time Encounter Note(s) Provider Source Jun 21, 2024 02:16 PM PREVENTIVE MEDICINE NURSING NOTE: LOCAL TITLE: CLINICAL REMINDERS/NURSING STANDARD TITLE: PREVENTIVE MEDICINE NURSING NOTE DATE OF NOTE: JUN 21, 2024@14:16 ENTRY DATE: JUN 21, 2024@14:16:43 AUTHOR: LIUDMILA NIETO EXP COSIGNER: URGENCY: STATUS: COMPLETED Influenza Immunization: Influenza, High-Dose, Trivalent, Preservative Free (Fluzone-Syringe) Administered: INFLUENZA, HIGH-DOSE, TRIVALENT, PF Date Administered: Jun 21, 2024 14:00 [employer] [facility] Technician: SANOFI PASTEUR Lot: [id number] Exp Date: Feb 13, 2025 ND: [id number] Admin Route/Site: INTRAMUSCULAR/LEFT DELTOID Dosage: 0.5mL Vaccine Information Statement(s): INFLUENZA(FLU) VACC(INACTIVATED OR RECOMBINANT)VIS Mar 22, 2021 (ROMANIAN) Order By: Policy Administered By: Liudmila Nieto The Influenza Vaccine Information Statement (VIS) was reviewed with the patient/caregiver which lists the benefits and risks of the vaccine and the risks of not receiving the Influenza vaccine. The patient/caregiver denied any prior severe reaction to this vaccine or its components or a severe allergic reaction, such as anaphylaxis, to any vaccine or any injectable therapy. The patient/caregiver gave verbal consent to receive the vaccine. COVID-19 Immunization: Moderna Monovalent (Spikevax) Administered: COVID-19 (MODERNA), MRNA, LNP-S, PF, 50 MCG/0.5 ML (AGES 12+ YEARS) Date Administered: Jun 21, 2024 14:00 [facility] [employer] [facility] Technician: MODERNA [employer]. Lot: [id number] Exp Date: January 14, 2025 [facility]: [id number] Admin Route/Site: INTRAMUSCULAR/LEFT DELTOID Dosage: 0.5mL Vaccine Information Statement(s): COVID-19 MRNA VACCINE (12+ YRS) VACCINE VIS Jun 02, 2024 (ROMANIAN) Order By: Policy Administered By: Liudmila Nieto Vaccine administered without complications. /rajesh/ LIUDMILA NIETO, MSN, RN, CNL PRIMARY CARE TEAM NURSE Signed: 06/21/2024 14:17 LIUDMILA NIETO [facility] [place] [facility] Jun 21, 2024 02:06 PM PHYSICIAN MENTAL HEALTH UNIT LEAD PSYCHOLOGIST NOTE: LOCAL TITLE: RAMIREZ NOTE STANDARD TITLE: PHYSICIAN MENTAL HEALTH UNIT LEAD PSYCHOLOGIST NOTE DATE OF NOTE: JUN 21, 2024@14:06 ENTRY DATE: JUN 21, 2024@14:06:36 AUTHOR: ANUPAM LEE EXP COSIGNER: URGENCY: STATUS: COMPLETED CC/HPI/A/P: 78 year old MALE here in follow-up for; htn, outside cardio started Coreg 6.125'about two months ago he would like here. Given bp here today we increase to 12.5 mg bid after discussing ADRs, etc. prostate cancer and impotence, urology ordering testosterone, which I enter after reviewing low PSA. Review of systems: Patient reports no changes from [place], in meds or any admissions. Active problems - Computerized Problem List is the source for the followin. Thoracic aortic aneurysm without rupture Followed by [facility]. 2. Exposure to potentially hazardous substance Connect Snomed Code to ICD 10 Code refer to note dated 07/20/23 3. History of implantation of penile prosthesis 4. Cancer of prostate 5. Sciatica 6. Benign essential hypertension (SNOMED CT 1796946) 7. Hypogonadism 8. Screening for Malignant Neoplasms of colon No polyps or inflammatory mucosal changes Minimal scattered diverticulosis throughout the entire colon FU in 10 years if asymptomatic - 2021 9. Hearing loss * 10. Tinnitus * 11. Chronic sinusitis 12. Impaired FASTING Glucose 13. Hyperlipidemia * 14. Allergic rhinitis * 15. Diverticulitis, Colonic * 16. Hypertrophy (Benign) of Prostate without Urinary obstruction TURP 10/2101 Dr Stephens at [facility]. 17. GERD * 18. Insomnia * 19. Herpes Genitalis h/o genital herpes -- no recurrence in several years (active from 1979 - 1984) 20. DIAPHRAGMATIC HERNIA 21. CALCULUS OF KIDNEY 22. former smoker SERVICE CONNECTED % - 30 VA and Non VA meds were reconciled with the patient who left with a corrected copy. See medication page for details. Active and Recently Outpatient Medications (excluding Supplies): Active Outpatient Medications Status 1) ALBUTEROL 90MCG (CFC-F) 200D ORAL INHL INHALE 1 PUFF ACTIVE BY MOUTH TWICE DAILY NEEDED FOR BRONCHOSPASM PREVENTION 2) AMLODIPINE BESYLATE 10MG TAB TAKE ONE TABLET BY MOUTH ACTIVE ONCE DAILY FOR BLOOD PRESSURE/HEART, DO NOT TAKE WITH GRAPEFRUIT JUICE 3) ATORVASTATIN CALCIUM 40MG TAB TAKE ONE-HALF TABLET BY ACTIVE MOUTH ONCE DAILY FOR CHOLESTEROL REPLACES SIMVASTATIN. 4) LATANOPROST 0.005% OPH SOLN INSTILL 1 DROP INTO THE ACTIVE LEFT EYE AT BEDTIME TO REDUCE PRESSURE IN THE EYE 5) ZOLPIDEM TARTRATE 10MG TAB TAKE ONE TABLET BY MOUTH ACTIVE AT BEDTIME FOR SLEEP Active Non-VA Medications Status 1) Non-VA ASPIRIN 81MG EC TAB 81MG BY MOUTH DAILY ACTIVE 6 Total Medications 98.1 F [36.7 C] (06/21/2024:43) 69 (06/21/2024:43) 20 (06/21/2024:) 148/88 (06/21/2024:) 4 (06/21/2024:) 67 in [170.2 cm] (06/21/2024) 196 lb [88.90 kg] (06/21/2024:) BMI: 30.8 Neuro: Alert and oriented times three, grossly nonfocal, nasolabial folds intact. Thyroid nonpalpable. Cor: Regular rate and rhythm, normal s1 and 2 without Murmur, carotid bruits or pedal edema. Lungs; Clear to auscultation bilaterally. Recent labs reviewed with patient today: /rajesh/ Anupam Lee PA-C STAFF PHYSICIAN MENTAL HEALTH UNIT LEAD PSYCHOLOGIST Signed: 06/21/2024 14:09 ANUPAM LEE [facility] Jun 21, 2024 01:48 PM PREVENTIVE MEDICINE NURSING NOTE: LOCAL TITLE: CLINICAL REMINDERS/NURSING STANDARD TITLE: PREVENTIVE MEDICINE NURSING NOTE DATE OF NOTE: JUN 21, 2024@13:48 ENTRY DATE: JUN 21, 2024@13:48:23 AUTHOR: THANG WAYNE COSIGNER: URGENCY: STATUS: COMPLETED Falls & Incontinence Screen: Falls Screen: 4. No falls within the past year. Incontinence Screen No incontinence. /rajesh/ [facility] [employer] MARKING CLERK,PRIMARY CARE Signed: 06/21/2024 13:49 [facility]
--- OUTSIDE RECORDS SUMMARY | 2024-07-29 08:34 | XMS_ITS | Encounter Summary ---
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 Date/Time Encounter Type Encounter Description Reason Pro vider Source Mar 02, 2024 12:00 AM Outpatient Encounter EVENT (HISTORICAL) IHE Encounter Template Text not used by [place] Plan of Treatment: Future Appointments (+ 6 months) and Future Tests (+/- 45 days) The Plan of Treatment section includes future care activities for the [facility] This section includes future appointments and future orders which are active, pending or scheduled. Future Appointments This section includes appointments that were scheduled to occur 6 months from the date of the Encounter, up to a maximum of 20 appointments. The data comes from all [facility]. Appointment Date/Time Appointment Type Appointme nt Facility Name May 05, 2024 02:30 PM AMBULATORY - RE[facility] May 20, 2024 02:30 PM AMBULATORY - [facility] Jun 10, 2024 02:00 PM AMBULATORY - [facility] Jun 16, 2024 02:30 [facility] Jun 21, 2024 01:00 PM [facility] [place] [facility] [place] [facility] Jun 21, 2024 02:00 PM [facility] [facility] [place] [facility] Jul 19, 2024 10:00 AM [facility]ORY MEDICINE [place] [facility] [place] [facility] Aug 12, 2024 09:00 AM [facility] [place] [facility] [place] [facility] Aug 12, 2024 09:30 AM [facility] [facility] [place] [facility] Aug 12, 2024 10:00 AM AMBULATORY MEDICINE [facility] [place] [facility] Lab Results: +/- 30 days of the encounter This section includes the Chemistry and Hematology Lab Results on record with [place] for the patient. Radiology Reports and Pathology Reports are provided separately, in subsequent sections. Lab Results This section contains the Chemistry/Hematology Results that were resulted 30 days before or 30 daysafter the date of the Encounter. Date/Time Source Result Type Result - Unit Interpretation Reference Range Comment Feb 16, 2024 12:12 PM [place] [facility] PSA Specimen Type: SERUM No comment entered. Ordering Provider: ROCKY MORENO Report Released Date/Time: Nov 17, 2023 11:49 AM Reporting Lab: [place] [facility] [address] Performing Lab: [facility] [address] [address] PSA 0.14 ng/mL 0.00-4.00 Feb 16, 2024 12:12 PM [facility] BASIC METABOLIC PANEL (fasting) Specimen Type: SERUM No comment entered. Ordering Provider: ROCKY MORENO Report Released Date/Time: Nov 17, 2023 11:49 AM Reporting Lab: [facility] [address] [facility] [address] Performing Lab: [address] [address] UREA NITROGEN 18 mg/dL 7-25 GLUCOSE 94 mg/dL 65-100 SODIUM 141 mmol/L 135-145 POTASSIUM 4.1 mmol/L 3.5-5.0 CHLORIDE 109 mmol/L 100-110 CO2 24 meq/L 20-30 CREATININE, Serum 0.77 mg/dL 0.50-1.40 eGFR(CKD-EPI 2020) >90 mL/min >60 Feb 16, 2024 12:12 PM [facility] LIVER FUNCTION Specimen Type: SERUM No comment entered. Ordering Provider: ROCKY MORENO Report Released Date/Time: Nov 17, 2023 11:49 AM Reporting Lab: [address] [address] Performing Lab: [address] [address] PROTEIN,TOTAL 6.8 g/dL 6.0-8.3 ALBUMIN 4.2 g/dL 3.5-5.0 ALKALINE PHOSPHATASE 63 U/L 40-150 AST 25 U/L 5-34 ALT 24 U/L BILIRUBIN, TOTAL 1.1 mg/dL 0.2-1.2 Feb 16, 2024 12:12 PM [facility] LIPID PANEL FASTING Specimen Type: SERUM No comment entered. Ordering Provider: ROCKY MORENO Report Released Date/Time: Nov 17, 2023 11:49 AM Reporting Lab: [address] [address] Performing Lab: [address] [address] CHOLESTEROL 146 mg/dL TRIGLYCERIDE 96 mg/dL 0-150 LDL calculated 80 mg/dL 0-129 CHOL/HDL 3.1 HDL CHOLESTEROL 47 mg/dL 40-60 Social History: Smoking Status (Most [...] place. Date/Time Current Smoking Status Comment Facil it Nov 17, 2023 11:30 AM VA-TOBACCO QUIT 15 YRS OR MORE [place] [facility] [place] [facility] Tobacco Use History This section includes a history of the smoking, or tobacco-related health factors, that were collected on or before the date of the Encounter. The data comes from the [place] facility where the Encounter took place. Date/Time Smoking Status/Tobac co Use Comment Facility Nov 17, 2023 11:30 AM VA-TOBACCO QUIT 15 YRS OR MORE [facility] [place] [facility] Oct 30, 2022 03:20 PM VA-TOBACCO FORMER USER [facility] [place] [facility] Oct 30, 2022 03:20 PM VA-TOBACCO QUIT 15 YRS OR MORE [facility] [place] [facility] Jul 31, 2021 09:41 AM VA-TOBACCO FORMER USER [facility] [place] [facility] Jul 31, 2021 09:41 AM VA-TOBACCO QUIT 15 YRS OR MORE [facility] [place] [facility] Jun 29, 2020 11:00 AM VA-TOBACCO FORMER USER [facility] [place] [facility] Jun 29, 2020 11:00 AM VA-TOBACCO QUIT 15 YRS OR MORE [facility] [place] [facility] Feb 10, 2019 10:14 AM VA-TOBACCO FORMER USER [facility] [place] [facility] Feb 10, 2019 10:14 AM VA-TOBACCO QUIT 15 YRS OR MORE [facility] [place] [facility] Nov 27, 2017 11:12 AM QUIT TOBACCO USE > 7 YEARS AGO [facility] [place] [facility] Nov 05, 2016 11:01 AM QUIT TOBACCO USE > 7 YEARS AGO [facility] [place] [facility] Sep 17, 2015 01:03 PM QUIT TOBACCO USE > 7 YEARS AGO stopped 20 years ago [facility] [place] [facility] Feb 24, 2005 10:09 AM HISTORY OF SMOKING [facility] [place] [facility] May 28, 2004 08:08 AM QUIT TOBACCO USE > 7 YEARS AGO [facility] [place] [facility] Nov 27, 2003 01:12 PM HISTORY OF SMOKING [facility] [place] [facility] Mar 15, 2003 02:03 PM QUIT TOBACCO USE 1-7 YEARS AGO [facility] [place] [facility] Aug 24, 2002 11:07 AM HISTORY OF SMOKING [facility] [place] [facility] Feb 11, 2002 11:35 AM QUIT TOBACCO USE 1-7 YEARS AGO [facility] [place] [facility] May 21, 2001 01:11 PM HISTORY OF SMOKING quit 5 years [facility] [place] [facility] Encounter Notes: All associated encounter notes This section contains the clinical notes associated to the Encounter. Date/Time Encounter Note(s) Provider Source Mar 02, 2024 12:00 AM NONVA NOTE: LOCAL TITLE: NON-VA OUTPATIENT NOTES STANDARD TITLE: NONVA NOTE DATE OF NOTE: MAR 02, 2024 ENTRY DATE: JUL 19, 2024@08:01:24 AUTHOR: CARLOS ALBERTO CONLEY EXP COSIGNER: URGENCY: STATUS: COMPLETED VistA Imaging - Scanned Document SCANNED DOCUMENT SIGNATURE NOT REQUIRED Electronically Filed: 07/19/2024 by: CARLOS ALBERTO HARRINGOTN [facility]
--- OUTSIDE RECORDS SUMMARY | 2024-07-29 08:34 | XMS_ITS ---
Author Name [facility] [facility] [place] [facility] [place] Address [address] [place] [address] Care Team Providers Care Prior Authorization Technician Name Role Phone APOORVA LEE Primary Care [...] [place] [facility] ([place]NR) MEDICARE ADVANTAGE MCR ([facility]) Apr 17, 2013 [id number] Lauren COELHO PATIENT [facility] (WNR) MEDICARE ADVANTAGE MCR ([facility]) Apr 17, 2013 [id number] Lauren COELHO PATIENT Selected Encounter This section includes the information on record at [place] for the Encounter. Date/Time Encounter Type Encounter Description Reason Provider Source Jul 19, 2024 10:00 AM OFF/OP EST DECEMBER X REQ PHY/QHP PRIMARY CARE/MEDICINE ICD-10-CM I11.9 Hypertensive heart disease without heart failure YOVANY GONZALES E Encounter Template Text not used by [place] Assessments - Encounter Diagnoses This section includes the primary and secondary diagnoses documented for the Encounter. Date/Time Primary/Secondary Diagnosis Diagnosis Name Provider Source Jul 19, 2024 10:17 AM PRIMARY Hypertensive heart disease without heart failure YOVANY GONZALES [facility] Plan of Treatment: Future Appointments (+ 6 months) and Future Tests (+/- 45 days) The Plan of Treatment section includes future care activities for the patient [facility] [place] [facility] This section includes future appointments and future orders which are active, pending or scheduled. Future Appointments This section includes appointments that were scheduled to occur 6 months from the date of the Encounter, up to a maximum of 20 appointments. The data comes from all [facility] facilities. Appointment Date/Time Appointment Type Appointme nt Facility Name Aug 12, 2024 09:00 AM AMBUL[facility] Aug 12, 2024 09:30 AM [facility] Aug 12, 2024 10:00 AM AMBULATORY MEDICINE [facility] Oct 20, 2024 11:30 [facility] Vital Signs: All taken on the encounter date This section contains inpatient and outpatient Vital Signs collected on the date of the Encounter. Date/Time Temperature Pulse Blood Pressure Respiratory Rate SP02 Pain Height Weight Body Mass Index Source Jul 19, 2024 10:16 AM 60 140/82 [facility] Social History: Smoking Status (Most [...] Bri macedo Nov 17, 2023 11:30 AM [place]-TO[place]ACCO [facility] Tobacco Use History This section includes a history of the smoking, or tobacco-related health factors, that were collected on or before the date of the Encounter. The data comes from the [place] facility where the Encounter took place. Date/Time Smoking Status/Tobac co Use Comment Facility Nov 17, 2023 11:30 AM VA-TOBACCO QUIT 15 YRS OR MORE [facility] [place] [facility] Oct 30, 2022 03:20 PM VA-TOBACCO FORMER USER [facility] [place] [facility] Oct 30, 2022 03:20 PM VA-TOBACCO QUIT 15 YRS OR MORE [facility] [place] [facility] Jul 31, 2021 09:41 AM VA-TOBACCO FORMER USER [facility] [place] [facility] Jul 31, 2021 09:41 AM VA-TOBACCO QUIT 15 YRS OR MORE [facility] [place] [facility] Jun 29, 2020 11:00 AM VA-TOBACCO FORMER USER [facility] [place] [facility] Jun 29, 2020 11:00 AM VA-TOBACCO QUIT 15 YRS OR MORE [facility] [place] [facility] Feb 10, 2019 10:14 AM VA-TOBACCO FORMER USER [facility] [place] [facility] Feb 10, 2019 10:14 AM VA-TOBACCO QUIT 15 YRS OR MORE [facility] [place] [facility] Nov 27, 2017 11:12 AM QUIT TOBACCO USE > 7 YEARS AGO [facility] [place] [facility] Nov 05, 2016 11:01 AM QUIT TOBACCO USE > 7 YEARS AGO [facility] [place] [facility] Sep 17, 2015 01:03 PM QUIT TOBACCO USE > 7 YEARS AGO stopped 20 years ago [facility] [place] [facility] Feb 24, 2005 10:09 AM HISTORY OF SMOKING [facility] [place] [facility] May 28, 2004 08:08 AM QUIT TOBACCO USE > 7 YEARS AGO [facility] [place] [facility] Nov 27, 2003 01:12 PM HISTORY OF SMOKING [facility] [place] [facility] Mar 15, 2003 02:03 PM QUIT TOBACCO USE 1-7 YEARS AGO [facility] [place] [facility] Aug 24, 2002 11:07 AM HISTORY OF SMOKING [facility] [place] [facility] Feb 11, 2002 11:35 AM QUIT TOBACCO USE 1-7 YEARS AGO [facility] [place] [facility] May 21, 2001 01:11 PM HISTORY OF SMOKING [facility] Encounter Notes: All associated encounter notes This section contains the clinical notes associated to the Encounter. Date/Time Encounter Note(s) Provider Source Jul 27, 2024 10:19 AM ADDENDUM: LOCAL TITLE: Addendum STANDARD TITLE: ADDENDUM DATE OF NOTE: JUL 27, 2024@10:19:58 ENTRY DATE: JUL 27, 2024@10:19:59 AUTHOR: JED TORRES COSIGNER: URGENCY: STATUS: COMPLETED Talked with Vet, advised above. Alert to [facility] please place [facility] on 08/12 @ 1000 for BP check. /rajesh/ Jed Torres MSN RN CNL Primary Care RN Signed: 07/27/2024 10:20 Receipt Acknowledged By: 07/27/2024 10:32 /es/ ARMANDO PENALOZA KYLE --- Original Document --- 07/19/24 AMBULATORY/OUTPATIENT CARE NOTE: Blood pressure check: F: Nursing Clinic D: here for blood pressure check per PCP Apoorva Lee. Vet has history of hypertension. Presently he is taking this medication for elevated B/P: AMLODIPINE BESYLATE TAB 10MG TAKE ONE TABLET BY MOUTH ONCE DAILY CARVEDILOL TAB 12.5MG TAKE ONE TABLET BY MOUTH TWICE DAILY reports that increase to Carvedilol at last PCP appt was giving him nausea and lightheadedness so he switched it to 6.125 TID @ 0600,1200,1800. He takes his amlodipine in the PM. He is willing to try different medication or attempt the 12.5 TID again if advised? Home BP are around 138/78 depending on pain. He never sees any DBP in 90s anymore. HR 60. A: B/P today is 140/82 in his right arm and 140/82 in his left arm (manual cuff used with arm elevated at heart level) Pulse is 64. machine results were higher at 152/81 and 163/85. Will review results with pcp. R: tolerated well and left area ab devin. /rajesh/ YOLY GONZALES, RN REGISTERED NURSE Signed: 07/19/2024 10:17 Receipt Acknowledged By: 07/26/2024 17:30 /rajesh/ Apoorva Lee PA-C STAFF PHYSICIAN SUPERVISOR CD AREA 07/26/2024 ADDENDUM STATUS: COMPLETED Please ask him to try the carvedilol 12.5 TWICE daily (not three times daily) one more time. This would be a slight increase in dose from his current dose. Continue Amlodipine. If carvedilol is well tolerated bring him in for bp check in about two weeks. If not, we'll change his dose to 6.125 TWICE daily and add a third agent. And I'll ask DR Estrada if he can sat the eye exam reminder based on their September visit. If not please have him rebooked? Thanks. /rajesh/ Apoorva Lee PA-C STAFF PHYSICIAN SUPERVISOR CD AREA Signed: 07/26/2024 17:29 Receipt Acknowledged By: 07/27/2024 08:32 /es/ PURNIMA ESTRADA OD STAFF CUSTOMS BROKER 07/27/2024 10:20 /es/ Jed FARFAN RN CNL Primary Care RN for YOLY GONZALES 07/27/2024 ADDENDUM STATUS: COMPLETED Please telephone to the [place] and schedule him with first available opening with any available provider within the next 2 months or instruct the to call the optometry clinic every morning between 8 and 9 AM to see if there are cancellations and schedule him accordingly. /rajesh/ PURNIMA ESTRADA OD STAFF CUSTOMS BROKER Signed: 07/27/2024 08:34 Receipt Acknowledged By: 07/27/2024 10:04 /es/ LORNA JANSEN ADVANCED PAINTER SHIPYARD 07/27/2024 10:17 /es/ ALIZA EM FEATHER SAWYER JED TORRES [facility] [place] [facility] Jul 27, 2024 08:32 AM ADDENDUM: LOCAL TITLE: Addendum STANDARD TITLE: ADDENDUM DATE OF NOTE: JUL 27, 2024@08:32:40 ENTRY DATE: JUL 27, 2024@08:32:41 AUTHOR: PURNIMA ESTRADA EXP COSIGNER: URGENCY: STATUS: COMPLETED Please telephone to the [place] and schedule him with first available opening with any available provider within the next 2 months or instruct the to call the optometry clinic every morning between 8 and 9 AM to see if there are cancellations and schedule him accordingly. /es/ PURNIMA ESTRADA OD STAFF CUSTOMS BROKER Signed: 07/27/2024 08:34 Receipt Acknowledged By: 07/27/2024 10:04 /es/ LORNA JANSEN ADVANCED PAINTER SHIPYARD 07/27/2024 10:17 /es/ ALIZA EM FEATHER SAWYER --- Original Document --- 07/19/24 AMBULATORY/OUTPATIENT CARE NOTE: Blood pressure check: F: Nursing Clinic D: [place] here for blood pressure check per PCP Apoorva Lee. Vet has history of hypertension. Presently he is taking this medication for elevated B/P: AMLODIPINE BESYLATE TAB 10MG TAKE ONE TABLET BY MOUTH ONCE DAILY CARVEDILOL TAB 12.5MG TAKE ONE TABLET BY MOUTH TWICE DAILY reports that increase to Carvedilol at last PCP appt was giving him nausea and lightheadedness so he switched it to 6.125 TID @ 0600,1200,1800. He takes his amlodipine in the PM. He is willing to try different medication or attempt the 12.5 TID again if advised? Home BP are around 138/78 depending on pain. He never sees any DBP in 90s anymore. HR 60. A: B/P today is 140/82 in his right arm and 140/82 in his left arm (manual cuff used with arm elevated at heart level) Pulse is 64. machine results were higher at 152/81 and 163/85. Will review results with pcp. R: [place] tolerated well and left area ab devin. /rajesh/ YOLY GONZALES RN REGISTERED NURSE Signed: 07/19/2024 10:17 Receipt Acknowledged By: 07/26/2024 17:30 /rajesh/ Apoorva Lee PA-C STAFF PHYSICIAN SUPERVISOR CD AREA 07/26/2024 ADDENDUM STATUS: COMPLETED Please ask him to try the carvedilol 12.5 TWICE daily (not three times daily) one more time. This would be a slight increase in dose from his current dose. Continue Amlodipine. If carvedilol is well tolerated bring him in for bp check in about two weeks. If not, we'll change his dose to 6.125 TWICE daily and add a third agent. And I'll ask DR Estrada if he can sat the eye exam reminder based on their September visit. If not please have him rebooked? Thanks. /rajesh/ Apoorva Lee PA-C STAFF PHYSICIAN SUPERVISOR CD AREA Signed: 07/26/2024 17:29 Receipt Acknowledged By: 07/27/2024 08:32 /rajesh/ PURNIMA ESTRADA OD STAFF CUSTOMS BROKER * AWAITING SIGNATURE * YOLY GONZALES ANDREW E [place] [facility] [place] [facility] Jul 26, 2024 05:25 PM ADDENDUM: LOCAL TITLE: Addendum STANDARD TITLE: ADDENDUM DATE OF NOTE: JUL 26, 2024@17:25:19 ENTRY DATE: JUL 26, 2024@17:25:20 AUTHOR: APOORVA LEE EXP COSIGNER: URGENCY: STATUS: COMPLETED Please ask him to try the carvedilol 12.5 TWICE daily (not three times daily) one more time. This would be a slight increase in dose from his current dose. Continue Amlodipine. If carvedilol is well tolerated bring him in for bp check in about two weeks. If not, we'll change his dose to 6.125 TWICE daily and add a third agent. And I'll ask DR Estrada if he can sat the eye exam reminder based on their September visit. If not please have him rebooked? Thanks. /rajesh/ Apoorva Lee PA-C STAFF PHYSICIAN SUPERVISOR CD AREA Signed: 07/26/2024 17:29 Receipt Acknowledged By: 07/27/2024 08:32 /es/ PURNIMA ESTRADA OD STAFF CUSTOMS BROKER 07/27/2024 10:20 /es/ Jed Torres MSN RN CNL Primary Care RN for YOLY GONZALES --- Original Document --- 07/19/24 AMBULATORY/OUTPATIENT CARE NOTE: Blood pressure check: F: Nursing Clinic D: [place] here for blood pressure check per PCP Apoorva Lee. Vekarma has history of hypertension. Presently he is taking this medication for elevated B/P: AMLODIPINE BESYLATE TAB 10MG TAKE ONE TABLET BY MOUTH ONCE DAILY CARVEDILOL TAB 12.5MG TAKE ONE TABLET BY MOUTH TWICE DAILY [place] reports that increase to Carvedilol at last PCP appt was giving him nausea and lightheadedness so he switched it to 6.125 TID @ 0600,1200,1800. He takes his amlodipine in the PM. He is willing to try different medication or attempt the 12.5 TID again if advised? Home BP are around 138/78 depending on pain. He never sees any DBP in 90s anymore. HR 60. A: B/P today is 140/82 in his right arm and 140/82 in his left arm (manual cuff used with arm elevated at heart level) Pulse is 64. machine results were higher at 152/81 and 163/85. Will review results with pcp. R: [place] tolerated well and left area ab devin. /rajesh/ YOLY GONZALES RN REGISTERED NURSE Signed: 07/19/2024 10:17 Receipt Acknowledged By: 07/26/2024 17:30 /rajesh/ Apoorva Lee PA-C STAFF PHYSICIAN SUPERVISOR CD AREA 07/27/2024 ADDENDUM STATUS: COMPLETED Please telephone to the [place] and schedule him with first available opening with any available provider within the next 2 months or instruct the [place] to call the optometry clinic every morning between 8 and 9 AM to see if there are cancellations and schedule him accordingly. /rajesh/ PURNIMA ESTRADA OD STAFF CUSTOMS BROKER Signed: 07/27/2024 08:34 Receipt Acknowledged By: 07/27/2024 10:04 /es/ LORNA JANSEN ADVANCED PAINTER SHIPYARD 07/27/2024 10:17 /es/ ALIZA EM FEATHER SAWYER 07/27/2024 ADDENDUM STATUS: COMPLETED Talked with Vet, advised above. Alert to [facility] please place [place] in [facility] on 08/12 @ 1000 for BP check. /es/ Jed Torres MSN RN CNL Primary Care RN Signed: 07/27/2024 10:20 Receipt Acknowledged By: * AWAITING SIGNATURE * ARMANDO PENALOZA WILLIAM F [place] [facility] [place] [facility] Jul 19, 2024 10:03 AM PRIMARY CARE OUTPATIENT NOTE: LOCAL TITLE: AMBULATORY/OUTPATIENT CARE NOTE STANDARD TITLE: PRIMARY CARE OUTPATIENT NOTE DATE OF NOTE: JUL 19, 2024@10:03 ENTRY DATE: JUL 19, 2024@10:03:14 AUTHOR: YOLY GONZALES COSIGNER: URGENCY: STATUS: COMPLETED AMBULATORY/OUTPATIENT CARE NOTE Has ADDENDA Blood pressure check: F: Nursing Clinic D: here for blood pressure check per PCP Aoporva Lee. [place] has history of hypertension. Presently he is taking this medication for elevated B/P: AMLODIPINE BESYLATE TAB 10MG TAKE ONE TABLET BY MOUTH ONCE DAILY CARVEDILOL TAB 12.5MG TAKE ONE TABLET BY MOUTH TWICE DAILY reports that increase to Carvedilol at last PCP appt was giving him nausea and lightheadedness so he switched it to 6.125 TID @ 0600,1200,1800. He takes his amlodipine in the PM. He is willing to try different medication or attempt the 12.5 TID again if advised? Home BP are around 138/78 depending on pain. He never sees any DBP in 90s anymore. HR 60. A: B/P today is 140/82 in his right arm and 140/82 in his left arm (manual cuff used with arm elevated at heart level) Pulse is 64. machine results were higher at 152/81 and 163/85. Will review results with pcp. R: [place] tolerated well and left area ab devin. /es/ YOLY GONZALES RN REGISTERED NURSE Signed: 07/19/2024 10:17 Receipt Acknowledged By: 07/26/2024 17:30 /rajesh/ Apoorva Lee PA-C STAFF PHYSICIAN SUPERVISOR CD AREA 07/26/2024 ADDENDUM STATUS: COMPLETED Please ask him to try the carvedilol 12.5 TWICE daily (not three times daily) one more time. This would be a slight increase in dose from his current dose. Continue Amlodipine. If carvedilol is well tolerated bring him in for bp check in about two weeks. If not, we'll change his dose to 6.125 TWICE daily and add a third agent. And I'll ask DR Estrada if he can sat the eye exam reminder based on their September visit. If not please have him rebooked? Thanks. /rajesh/ Apoorva Lee PA-C STAFF PHYSICIAN SUPERVISOR CD AREA Signed: 07/26/2024 17:29 Receipt Acknowledged By: 07/27/2024 08:32 /es/ PURNIMA ESTRADA OD STAFF CUSTOMS BROKER 07/27/2024 10:20 /es/ Jed Torres MSN RN CNL Primary Care RN for YOLY GONZALES 07/27/2024 ADDENDUM STATUS: COMPLETED Please telephone to the [place] and schedule him with first available opening with any available provider within the next 2 months or instruct the [place] to call the optometry clinic every morning between 8 and 9 AM to see if there are cancellations and schedule him accordingly. /rajesh/ PURNIMA ESTRADA OD STAFF CUSTOMS BROKER Signed: 07/27/2024 08:34 Receipt Acknowledged By: 07/27/2024 10:04 /es/ LORNA JANSEN ADVANCED PAINTER SHIPYARD 07/27/2024 10:17 /es/ ALIZA EM FEATHER SAWYER 07/27/2024 ADDENDUM STATUS: COMPLETED Talked with Vet, advised above. Alert to [facility] please place [facility] in [facility] on 08/12 @ 1000 for BP check. /rajesh/ Jed Torres MSN RN CNL Primary Care RN Signed: 07/27/2024 10:20 Receipt Acknowledged By: * AWAITING SIGNATURE * ARMANDO PENALOZA LAUREN M [facility]
--- OUTSIDE RECORDS SUMMARY | 2024-07-29 08:34 | XMS_ITS | Encounter Summary ---
Author Name [facility] [facility] Address [address] [place] [address] Care Team Providers Care Head Trimmer Name Role Phone APOORVA MORENO Primary Care [...] Name Patient's Relationship to Policy Hare [facility] ([facility]) MEDICARE ADVANTAGE MCR ([facility]) Apr 17, 2013 [id number] Lauren COELHO PATIENT [facility] ([facility]) MEDICARE ADVANTAGE MCR ([facility]) Apr 17, 2013 [id number] Lauren COELHO PATIENT Selected Encounter This section includes the information on record at [place] for the Encounter. Date/Time Encounter Type Encounter Description Reason Pro vider Source Jun 17, 2024 12:00 AM Outpatient Encounter EVENT (HISTORICAL) I[facility] Encounter Template Text not used by [place] Plan of Treatment: Future Appointments (+ 6 months) and Future Tests (+/- 45 days) The Plan of Treatment section includes future care activities for the patient from [facility] [place] [facility] This section includes future appointments and future orders which are active, pending or scheduled. Future Appointments This section includes appointments that were scheduled to occur 6 months from the date of the Encounter, up to a maximum of 20 appointments. The data comes from all [place] treatment facilities. Appointment Date/Time Appointment Type Appointme nt Facility Name Jun 21, 2024 01:00 PM [place] [facility] [place] [facility] Jun 21, 2024 02:00 PM [place] [facility] [place] [facility] Jul 19, 2024 10:00 AM [place] [facility] [place] [facility] Aug 12, 2024 09:00 AM [place] [facility] [place] [facility] Aug 12, 2024 09:30 AM [place] [facility] [place] [facility] Aug 12, 2024 10:00 AM [place] [facility] [place] [facility] Oct 20, 2024 11:30 AM [place] [facility] Lab Results: +/- 30 days [...] Range Comment Jun 14, 2024 10:20 AM [facility] LIPID PANEL FASTING Specimen Type: SERUM No comment entered. Ordering Provider: ROCKY MORENO Report Released Date/Time: Jun 08, 2024 11:04 AM Reporting Lab: [address] [id number] Performing Lab: [address] [address] CHOLESTEROL 166 mg/dL TRIGLYCERIDE 71 mg/dL 0-150 LDL calculated 95 mg/dL 0-129 CHOL/HDL 2.9 HDL CHOLESTEROL 57 mg/dL 40-60 Jun 14, 2024 10:20 AM [facility] LIVER FUNCTION Specimen Type: SERUM No comment entered. Ordering Provider: ROCKY MORENO Report Released Date/Time: Jun 08, 2024 11:04 AM Reporting Lab: [facility] [address] [facility] [address] Performing Lab: [address] [address] PROTEIN,TOTAL 6.8 g/dL 6.0-8.3 ALBUMIN 4.0 g/dL 3.5-5.0 ALKALINE PHOSPHATASE 63 U/L 40-150 AST 18 U/L 5-34 ALT 30 U/L BILIRUBIN, TOTAL 0.8 mg/dL 0.2-1.2 Jun 14, 2024 10:20 AM [facility] BASIC METABOLIC PANEL (fasting) Specimen Type: SERUM No comment entered. Ordering Provider: ROCKY MORENO Report Released Date/Time: Jun 08, 2024 11:04 AM Reporting Lab: [facility] [address] [facility] [address] Performing Lab: [address] [address] UREA NITROGEN 21 mg/dL 7-25 GLUCOSE 105 [...] and tobacco- related health factors from the [place] facility where the Encounter took place. Current Smoking Status This section includes the most current smoking, or tobacco-related health factor, from the [place] facility where the Encounter took place. Date/Time Current Smoking Status Comment Facil hellen Nov 17, 2023 11:30 AM VA-TOBACCO FORMER USER [facility] Tobacco Use History This section includes a history of the smoking, or tobacco-related health factors, that were collected on or before the date of the Encounter. The data comes from the [place] facility where the Encounter took place. Date/Time Smoking Status/Tobac co Use Comment Facility Nov 17, 2023 11:30 AM VA-TOBACCO QUIT 15 YRS OR MORE [facility] [place] [facility] Oct 30, 2022 03:20 PM VA-TOBACCO FORMER USER [facility] [place] [facility] Oct 30, 2022 03:20 PM VA-TOBACCO QUIT 15 YRS OR MORE [facility] [place] [facility] Jul 31, 2021 09:41 AM VA-TOBACCO FORMER USER [facility] [place] [facility] Jul 31, 2021 09:41 AM VA-TOBACCO QUIT 15 YRS OR MORE [facility] [place] [facility] Jun 29, 2020 11:00 AM VA-TOBACCO FORMER USER [facility] [place] [facility] Jun 29, 2020 11:00 AM VA-TOBACCO QUIT 15 YRS OR MORE [facility] [place] [facility] Feb 10, 2019 10:14 AM VA-TOBACCO FORMER USER [facility] [place] [facility] Feb 10, 2019 10:14 AM VA-TOBACCO QUIT 15 YRS OR MORE [facility] [place] [facility] Nov 27, 2017 11:12 AM QUIT TOBACCO USE > 7 YEARS AGO [facility] [place] [facility] Nov 05, 2016 11:01 AM QUIT TOBACCO USE > 7 YEARS AGO [facility] [place] [facility] Sep 17, 2015 01:03 PM QUIT TOBACCO USE > 7 YEARS AGO stopped 20 years ago [facility] [place] [facility] Feb 24, 2005 10:09 AM HISTORY OF SMOKING [facility] [place] [facility] May 28, 2004 08:08 AM QUIT TOBACCO USE > 7 YEARS AGO [facility] [place] [facility] Nov 27, 2003 01:12 PM HISTORY OF SMOKING [facility] [place] [facility] Mar 15, 2003 02:03 PM QUIT TOBACCO USE 1-7 YEARS AGO [facility] [place] [facility] Aug 24, 2002 11:07 AM HISTORY OF SMOKING [facility] [place] [facility] Feb 11, 2002 11:35 AM QUIT TOBACCO USE 1-7 YEARS AGO [facility] May 21, 2001 01:11 PM HISTORY OF SMOKING quit 5 years ago [facility] Encounter Notes: All associated encounter notes This section contains the clinical notes associated to the Encounter. Date/Time Encounter Note(s) Provider Source Jun 17, 2024 12:00 AM NONVA NOTE: LOCAL TITLE: NON-VA OUTPATIENT NOTES STANDARD TITLE: NONVA NOTE DATE OF NOTE: JUN 17, 2024 ENTRY DATE: JUL 26, 2024@11:18:55 AUTHOR: BRADEN OLIVA EXP COSIGNER: URGENCY: STATUS: COMPLETED VistA Imaging - Scanned Document SCANNED DOCUMENT SIGNATURE NOT REQUIRED Electronically Filed: 07/26/2024 by: BRADEN CLAIRE [facility]
== END 2024-07-29 08:53 | disposition home or self-care (01) ==
PROVIDERS: PCP Internal Medicine; Visit Provider Internal Medicine
DX: M54.51 Vertebrogenic low back pain (principal); M54.6 Pain in thoracic spine; G89.29 Other chronic pain; M54.41 Lumbago with sciatica, right side; M47.816 Spondylosis without myelopathy or radiculopathy, lumbar region; M71.38 Other bursal cyst, other site
CPT/HCPCS: 99214

== ENCOUNTER → 2024-07-29 08:23 | Outpatient (BNVA) | payer MEDICARE, SELFPAY | PROVIDERS: Visit Provider Internal Medicine | DX: M54.51 Vertebrogenic low back pain (principal); M54.6 Pain in thoracic spine; M54.41 Lumbago with sciatica, right side; M47.816 Spondylosis without myelopathy or radiculopathy, lumbar region; M71.38 Other bursal cyst, other site; G89.29 Other chronic pain | CPT/HCPCS: 99212 ==

== ENCOUNTER 2024-08-11 06:27 | Outpatient (REF) | payer MEDICARE, SELFPAY ==
--- NOTE | ~2024-08-11 | FL_ITS ---
EXAMINATION: FLUORO GUIDANCE IN TREATMENT ROOM CLINICAL INFORMATION: Lumbago with sciatica, right side. COMPARISON: None available. TECHNIQUE: Fluoroscopy supervised by: Dr. Luis Guerrero. Fluoroscopy time: 0.3 minutes. Cumulative Dose: 7.41 mGy. DAP: 0.0515 mGy-m2 (milligray-meter squared). Images: 2. FINDINGS: Transforaminal needle present on the right in the lower lumbosacral spine. Injected contrast is in the epidural space around the nerve root. Level cannot be ascertained from the included radiographs. FL/FL guidance in treatment room IMPRESSION: Fluoroscopy during procedure. Please see procedure report for additional information. Electronically signed by: Derrell Castro MD 09/15/2024 08:02 AM [place]
--- OUTSIDE RECORDS SUMMARY | 2024-08-11 06:30 | XMS_ITS | Patient Health Record ---
Author Organization [facility] Address [address] [place] [id number] Care Team Providers Care Trouble Shooting Mechanic Name Role Phone Cesilia Anguiano Primary Care Provider Unav ailRenato Moss Unavailable [phone] ALLERGIES Allergen (clinical drug ingredient) Drug/Non Drug [...] malignant neoplasm of colon (Z12.11) Active confirmed 954592627 Problem History of adenomatous polyp of colon (Z86.010) Active confirmed 227701791 Problem Irritable bowel syndrome without diarrhea (K58.9) Active confirmed 08480270 Problem Diverticulosis (K57.90) Active confirmed 420046852 Problem Preprocedural examination (Z01.818) Active confirmed [id number] Problem History of colon polyps (Z86.010) Active confirmed History of polyp of colon (683301535) Problem Family history of colon cancer (Z80.0) Active confirmed 095721134 Problem Change in bowel function (R19.4) Active confirmed 93790439 Problem Diarrhea, unspecified type (R19.7) Active confirmed 36071255 Problem Diverticulosis of colon (K57.30) Active confirmed Diverticulosi s of colon (121244560) Problem LLQ abdominal pain (R10.32) Active confirmed 135865595 PLAN OF TREATMENT Pending Test Test Name [...] Insured Coverage Start Date Coverage End Date [facility] [address] [place] [phone] [id number] HANH COELHO Self - patient is the insured MEDICAL (GENERAL) HISTORY Medical History History ICD Code HTN Denies MA,DM,CVA,renal disease Diverticulitis with surgery as below Hyperlipidemia BPH Neg colonoscopy with Dr. Nain taylor in 05/2012--previous polyps removed at the [facility] EGD's in [place] prior to the [facility] CT in 05/2013 and 11/2015 fercho wed only diverticulosis and renal cysts--he has also had negative abdominal ultrasound and MRIs ? of [place]---sees Dr. Gallagher-had phleb otomy--presently inactive Prostate cancer--finished XRT in 09/2015 Pleural effusion on the left -2014--saw Dr. Worthy at [facility]--had CT scans and a thoracentesis--no cancer--being followed [...]
--- OUTSIDE RECORDS SUMMARY | 2024-08-11 06:30 | XMS_ITS | Continuity of Care Document ---
Author Name [facility] Organization [facility] Care Team Providers Care Rib Cutter Name Role Phone [facility] Unavailable Unavailable Problems Combined list of problems [...] [facility] Benign essential hypertension (SNOMED CT 2907308) Active Condition [facility] Bloating (ICD-9-CM 787.3) Active Condition [facility] CALCULUS OF KIDNEY Active Condition [facility] [...] Entered By: RADHA MORENO Comment: Colectomy @ [facility] about 2004.Aug 22, 2010 Entered By: RADHA MORENO Comment: His father had colon cancer. [facility] Exposure to potentially hazardous substance Active Condition Oct 14, 2023 Entered By: ANALY SOW Comment: Connect Snomed Code to ICD 10 Code refer to note dated 07/20/23 [facility] former smoker Active Condition [facility] [...] MORENO Comment: TUR 10/2101 Dr Stephens at [facility]. [facility] Hypogonadism Active Condition [facility] Impaired FASTING Glucose (ICD-9-CM 790.21) Active Condition [facility] Insomnia * (ICD-9-CM 780.52) Active Condition [facility] Sciatica Active Condition [facility] Thoracic aortic aneurysm without rupture Active Condition Jun 14, 2024 Entered By: RADHA MORENO Comment: Followed by [facility]. [facility] Tinnitus * (ICD-9-CM 388.30) Active Condition [facility] TINNITUS NOS Active Condition [facility] H. Pylori therapy 1997 Inactive Condition 07/11/2013 [facility] Hiatal Hernia Inactive Condition 01/13/2012 December 162011 Entered By: RADHA MORENO Comment: lap surgery about 2005 was curative. 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, left eye, mild stage Active Diagnosis [facility] Diagnosis: ICD-10-CM Z46.0 Encounter for fit/adjst of spectacles and contact lenses Active Diagnosis [facility] Diagnosis: ICD-10-CM 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, left eye, mild stage Active Diagnosis [facility] Medications Combined list of outpatient medications from [...] ON RESPIR ATORY (INHAL ATION) ACTIVE 11/17/2024 [id number] APOORVA MORENO 2023 1 [facility] AMLODIPINE BESYLATE 10MG TAB TAKE ONE TABLET BY MOUTH ONCE DAILY FOR BLOOD PRESSURE /HEART, DO NOT TAKE WITH GRAPEFRU IT JUICE ORAL ACTIVE 06/22/2025 [id number] 4 APOORVA MORENO 2023 90 [facility] AMLODIPINE BESYLATE 10MG TAB TAKE ONE TABLET BY MOUTH ONCE DAILY FOR BLOOD PRESSURE /HEART, DO NOT TAKE WITH GRAPEFRU IT JUICE ORAL DISCONT INUED (EDIT) 02/19/2025 [id number] 4 APOORVA MORENO 2023 30 [facility] AMLODIPINE BESYLATE 10MG TAB TAKE ONE TABLET BY MOUTH ONCE DAILY FOR BLOOD PRESSURE /HEART, DO NOT TAKE WITH GRAPEFRU IT JUICE ORAL DISCONT INUED (EDIT) 07/20/2024 [id number] APOORVA MORENO 2022 30 [facility] AMLODIPINE BESYLATE 2.5MG TAB TAKE THREE TABLETS BY MOUTH ONCE DAILY FOR BLOOD PRESSURE /HEART, DO NOT TAKE WITH GRAPEFRU IT JUICE ORAL DISCONT INUED (EDIT) 11/17/2024 [id number] 4 APOORVA MORENO 2023 90 [facility] AMLODIPINE BESYLATE 5MG TAB TAKE ONE TABLET BY MOUTH ONCE DAILY FOR BLOOD PRESSURE /HEART, DO NOT TAKE WITH GRAPEFRU IT JUICE ORAL DISCONT INUED (EDIT) 11/05/2023 [id number] 3 APOORVA MORENO 2022 30 [facility] ASPIRIN 81MG TAB,EC TAKE ONE TABLET BY MOUTH DAILY ORAL ACTIVE APOORVA MORENO 2013 [facility] ATORVASTATI N CA 40MG TAB TAKE ONE-HALF TABLET BY MOUTH ONCE DAILY FOR CHOLESTE ROL REPLACES SIMVASTA TIN. ORAL SUSPEND ED 02/19/2025 [id number] 5 APOORVA MORENO 2023 45 [facility] ATORVASTATI N CA 40MG TAB TAKE ONE-HALF TABLET BY MOUTH ONCE DAILY FOR CHOLESTE ROL REPLACES SIMVASTA TIN. ORAL DISCONT INUED 07/20/2024 [id number] APOORVA MORENO 2022 45 [facility] ATORVASTATI N CA 40MG TAB TAKE ONE-HALF TABLET BY MOUTH ONCE DAILY FOR CHOLESTE ROL REPLACES SIMVASTA TIN. ORAL DISCONT INUED (EDIT) 11/05/2023 [id number] 3 APOORVA MORENO 2022 15 [facility] CARVEDILOL 12.5MG TAB TAKE ONE TABLET BY MOUTH TWICE DAILY FOR HIGH BLOOD PRESSURE ORAL ACTIVE 06/22/2025 [id number] APOORVA MORENO 2023 180 [facility] DICLOFENAC NA 1% GEL,TOP APPLY 4 GRAMS TOPICALL Y THREE TIMES DAILY NEEDED FOR OSTEOART HRITIS - USE DOSING CARD PROVIDED IN BOX TOPICSaamria Cota 01/14/2024 [id number] 4 RAOUL HOPKINS 2023 300 [facility] LATANOPROST 0.005% SOLN,OPH INSTILL 1 DROP INTO THE LEFT EYE AT BEDTIME TO REDUCE PRESSURE IN THE EYE OPHTHA LMIC ACTIVE 05/05/2025 [id number] 4 Samaria ESTRADA NDREW E 2023 7.5 [facility] LATANOPROST 0.005% SOLN,OPH INSTILL 1 DROP INTO THE LEFT EYE AT BEDTIME TO REDUCE PRESSURE IN THE EYE OPHTHA LMIC DISCONT INUED 02/14/2024 [id number] 4 Samaria ESTRADA NDREW E 2022 5 [facility] TESTOSTERON E (EQV-ANDROG EL) 1% 5GM/PKT GEL,TOP APPLY 1 PACKET TOPICALL Y ONCE DAILY TO SHOULDER . RUB IN UNTIL DRY, THEN WASH HANDS WITH SOAP AND WATER GRISELDAA L ACTIVE 12/22/2024 [id number] 4 JOSE DE JESUSAPOORVA HORAN 2023 30 [facility] TESTOSTERON E (EQV-ANDROG EL) 1% 5GM/PKT GEL,TOP APPLY 1 PACKET TOPICALL Y ONCE DAILY TO SHOULDER . RUB IN UNTIL DRY, THEN WASH HANDS WITH SOAP AND WATER TOPICA L DISCONT INUED 03/20/2024 [id number] SUSI ALBERTO MD 2023 30 [facility] TESTOSTERON E (EQV-ANDROG EL) 1% 5GM/PKT GEL,TOP APPLY 1 PACKET TOPICALL Y ONCE DAILY TO SHOULDER . RUB IN UNTIL DRY, THEN WASH HANDS WITH SOAP AND WATER TOPICA L 08/28/2023 [id number] SUSI ALBERTO MD 2022 30 [place] ZOLPIDEM TARTRATE 10MG TAB TAKE ONE TABLET BY MOUTH AT BEDTIME FOR SLEEP ORAL ACTIVE 11/05/2024 [id number] APOORVA MORENO [address] [facility] [place] ZOLPIDEM TARTRATE 10MG TAB TAKE ONE TABLET BY MOUTH AT BEDTIME NEEDED FOR SLEEP ORAL DISCONT INUED 11/11/2023 [id number] 4 APOORVA MORENO 2022 30 [facility] ZOLPIDEM TARTRATE 10MG TAB TAKE ONE TABLET BY MOUTH AT BEDTIME FOR SLEEP ORAL 04/22/2024 [id number] 4 APOORVA MORENO 2023 30 [facility] Allergies, Adverse Reactions, Alerts Combined list of allergies from Department of Defense and Veterans Affairs facilities. It does not include entries that were removed or entered in error. Substance Category Reaction Severity Reaction type Status Date Reported Comments Source AUGMENTIN Propensity to adverse reactions to drug (finding) Abdominal pain active 1 [facility] SULFONAMIDE/ RELATED ANTIMICROBIA LS Propensity to adverse reactions to drug (finding) HIVES active 8 [facility] Immunizations Combined list of available immunizations from the Department of Defense and Veterans Affairs facilities. Immunization Series Date Given Administered By Site Reaction Lot Number CVX Code Drug Puller Over Status Comments Source COVID-19 (MODERNA), MRNA, LNP-S, PF, 50 MCG/0.5 ML (AGES 12+ YEARS) 2023 CLARA JULIO LEFT DELTO ID [id number] 312 complet ed [facility] INFLUENZA, HIGH-DOSE, TRIVALENT, PF 2023 CLARA JULIO LEFT DELTO ID [id number] 135 complet ed [facility] INFLUENZA, HIGH-DOSE, QUADRIVALENT 2022 CHERYCHARLY RAZO E LEFT DELTO ID [id number] 197 complet ed [facility] COVID-19 (MODERNA), MRNA, LNP-S, PF, 50 MCG/0.5 ML (AGES 12+ YEARS) 4 2022 LEFT DELTO ID 312 complet ed [employer] Lot#: [id number] Mfr: MODERNA [employer] [facility] INFLUENZA VACCINE, QUADRIVALENT, ADJUVANTED 2021 205 complet ed [facility] COVID-19 (MODERNA), MRNA, LNP-S, PF, 100 MCG/0.5ML DOSE OR 50 MCG/0.25ML DOSE 3 2020 207 complet ed [facility] COVID-19 (MODERNA), MRNA, LNP-S, PF, [...] TD(ADULT) UNSPECIFIED FORMULATION 2014 139 complet ed [facility] ED. Probably TD. after a dogbite. [...] AM Reporting Lab: [facility] [place] [facility] [address] [facility] [address] Performing Lab: [facility] [place] [facility] [address] [facility] [address] [facility] LIPID PANEL FASTING TRIGLYCERID E [MASS/VOLUM E] IN SERUM OR PLASMA 71 mg/dL 0 - 150 06/14 Specimen Type: SERUM No comment entered. Ordering Provider: Jimena MORENO Report Released Date/Time: Jun 08, 2024 11:04 AM Reporting Lab: [facility] [place] [facility] [address] [facility] [address] Performing Lab: [place] [facility] [place] [facility] [address] [facility] [address] [facility] [place] [facility] LIPID PANEL FASTING CHOLESTEROL IN LDL [MASS/VOLUM E] IN SERUM OR PLASMA BY CALCULATION 95 mg/dL 0 - 129 06/14 Specimen Type: SERUM No comment entered. Ordering Provider: Jimena MORENO Report Released Date/Time: Jun 08, 2024 11:04 AM Reporting Lab: [facility] [place] [facility] [address] [facility] [address] Performing Lab: [facility] [place] [facility] [address] [facility] [address] [facility] [place] [facility] LIPID PANEL FASTING CHOLESTEROL .TOTAL/CHOL ESTEROL IN HDL [MASS RATIO] IN SERUM OR PLASMA 2.9 06/14 Specimen Type: SERUM No comment entered. Ordering Provider: Jimena MORENO Report Released Date/Time: Jun 08, 2024 11:04 AM Reporting Lab: [facility] [place] [facility] [address] [facility] [address] Performing Lab: [facility] [place] [facility] [address] [facility] [address] [facility] [facility] [place] [facility] LIPID PANEL FASTING CHOLESTEROL IN HDL [MASS/VOLUM E] IN SERUM OR PLASMA 57 mg/dL 40 - 60 06/14 Specimen Type: SERUM No comment entered. Ordering Provider: Jimena MORENO Report Released Date/Time: Jun 08, 2024 11:04 AM Reporting Lab: [facility] [place] [facility] [address] [facility] [address] Performing Lab: [facility] [place] [facility] [address] [facility] [address] [facility] [facility] LIVER FUNCTION PROTEIN [MASS/VOLUM E] IN SERUM OR PLASMA 6.8 g/dL 6.0 - 8.3 06/14 Specimen Type: SERUM No comment entered. Ordering Provider: Jimena MORENO Report Released Date/Time: Jun 08, 2024 11:04 AM Reporting Lab: [facility] [place] [facility] [address] [facility] [address] Performing Lab: [facility] [place] [facility] [address] [facility] [address] [facility] [facility] [place] [facility] LIVER FUNCTION ALBUMIN [MASS/VOLUM E] IN SERUM OR PLASMA 4.0 g/dL 3.5 - 5.0 06/14 Specimen Type: SERUM No comment entered. Ordering Provider: Jimena MORENO Report Released Date/Time: Jun 08, 2024 11:04 AM Reporting Lab: [facility] [place] [facility] [address] [facility] [address] Performing Lab: [facility] [place] [facility] [address] [facility] [address] [facility] [facility] LIVER FUNCTION ALKALINE PHOSPHATASE [ENZYMATIC ACTIVITY/VO LUME] IN SERUM OR PLASMA 63 U/L 40 - 150 06/14 Specimen Type: SERUM No comment entered. Ordering Provider: Jimena MORENO Report Released Date/Time: Jun 08, 2024 11:04 AM Reporting Lab: [facility] [place] [facility] [address] [facility] [address] Performing Lab: [facility] [place] [facility] [address] [facility] [address] [facility] [place] [facility] LIVER FUNCTION ASPARTATE AMINOTRANSF ERASE [ENZYMATIC ACTIVITY/VO LUME] IN SERUM OR PLASMA 18 U/L 5 - 34 06/14 Specimen Type: SERUM No comment entered. Ordering Provider: Jimena MORENO Report Released Date/Time: Jun 08, 2024 11:04 AM Reporting Lab: [facility] [place] [facility] [address] [facility] [address] Performing Lab: [facility] [place] [facility] [address] [facility] [address] [facility] [place] [facility] LIVER FUNCTION ALANINE AMINOTRANSF ERASE [ENZYMATIC ACTIVITY/VO LUME] IN SERUM OR PLASMA 30 U/L 06/14 Specimen Type: SERUM No comment entered. Ordering Provider: Jimena MORENO Report Released Date/Time: Jun 08, 2024 11:04 AM Reporting Lab: [facility] [place] [address] [address] Performing Lab: [facility] [place] [address] [address] [facility] [facility] [place] [facility] LIVER FUNCTION BILIRUBIN.T OTAL [MASS/VOLUM E] IN SERUM OR PLASMA 0.8 mg/dL 0.2 - 1.2 06/14 Specimen Type: SERUM No comment entered. Ordering Provider: Jimena MORENO Report Released Date/Time: Jun 08, 2024 11:04 AM Reporting Lab: [facility] [place] [address] [address] Performing Lab: [facility] [place] [facility] [address] [facility] [address] [facility] [facility] [place] [facility] BASIC METABOLIC PANEL (fasting) UREA NITROGEN [MASS/VOLUM E] IN SERUM OR PLASMA 21 mg/dL 7 - 25 06/14 Specimen Type: SERUM No comment entered. Ordering Provider: Jimena MORENO Report Released Date/Time: Jun 08, 2024 11:04 AM Reporting Lab: [facility] [place] [address] [address] Performing Lab: [facility] [address] [facility] [address] [facility] BASIC METABOLIC PANEL (fasting) GLUCOSE [MASS/VOLUM E] IN SERUM OR PLASMA 105 mg/dL 65 - 100 06/14 H Specimen Type: SERUM No comment entered. Ordering Provider: Jimena MORENO Report Released Date/Time: Jun 08, 2024 11:04 AM Reporting Lab: [facility] [address] [facility] [address] Performing Lab: [facility] [address] [facility] [address] [facility] [place] [facility] BASIC METABOLIC PANEL (fasting) SODIUM [MOLES/VOLU ME] IN SERUM OR PLASMA 138 mmol/L 135 - 145 06/14 Specimen Type: SERUM No comment entered. Ordering Provider: Jimena MORENO Report Released Date/Time: Jun 08, 2024 11:04 AM Reporting Lab: [facility] [place] [facility] [address] [facility] [address] Performing Lab: [facility] [address] [facility] [address] [facility] BASIC METABOLIC PANEL (fasting) POTASSIUM [MOLES/VOLU ME] IN SERUM OR PLASMA 4.2 mmol/L 3.5 - 5.0 06/14 Specimen Type: SERUM No comment entered. Ordering Provider: Jimena MORENO Report Released Date/Time: Jun 08, 2024 11:04 AM Reporting Lab: [facility] [place] [facility] [address] [facility] [address] Performing Lab: [facility] [place] [facility] [address] [facility] [address] [facility] TRN [facility] BASIC METABOLIC PANEL (fasting) CHLORIDE [MOLES/VOLU ME] IN SERUM OR PLASMA 107 mmol/L 100 - 110 06/14 Specimen Type: SERUM No comment entered. Ordering Provider: Jimena MORENO Report Released Date/Time: Jun 08, 2024 11:04 AM Reporting Lab: [facility] [place] [facility] [address] [facility] [address] Performing Lab: [place] [facility] [place] [facility] [address] [facility] [address] [facility] BASIC METABOLIC PANEL (fasting) CARBON DIOXIDE, TOTAL [MOLES/VOLU ME] IN SERUM OR PLASMA 22 meq/L 20 - 30 06/14 Specimen Type: SERUM No comment entered. Ordering Provider: Jimena MORENO Report Released Date/Time: Jun 08, 2024 11:04 AM Reporting Lab: [facility] [facility] [address] [facility] [address] Performing Lab: [place] [facility] [address] [facility] [address] [facility]ITALRMON[facility]OSPITALTRN [facility] BASIC METABOLIC PANEL (fasting) CREATININE [MASS/VOLUM E] IN SERUM OR PLASMA 0.74 mg/dL 0.50 - 1.40 06/14 Specimen Type: SERUM No comment entered. Ordering Provider: Jimena MORENO Report Released Date/Time: Jun 08, 2024 11:04 AM Reporting Lab: [place] [facility] [place] [address] [address] Performing Lab: [place] [facility] [place] [facility]ENTER[facility] [address] [facility] TRN [facility] BASIC METABOLIC PANEL (fasting) GLOMERULAR FILTRATION RATE/1.73 SQ M.PREDICTED [VOLUME RATE/AREA] IN SERUM, PLASMA OR BLOOD BY CREATININE- BASED FORMULA (CKD-EPI 2020) >90mL/ min 60 06/14 Specimen Type: SERUM No comment entered. Ordering Provider: Jimena MORENO Report Released Date/Time: Jun 08, 2024 11:04 AM Reporting Lab: [place] [facility] [facility] [address] [facility] [address] Performing Lab: [place] [facility] [place] [facility]ENTER[facility] [address] [facility] [facility] PSA PROSTATE SPECIFIC AG [MASS/VOLUM E] IN SERUM OR PLASMA 0.14 ng/mL 0.00 - 4.00 02/15 Specimen Type: SERUM No comment entered. Ordering Provider: Jimena MORENO Report Released Date/Time: Nov 17, 2023 11:49 AM Reporting Lab: [place] [facility] [place] [address] [address] Performing Lab: [place] [facility] [place] [address] [address] [facility] LIVER FUNCTION PROTEIN [MASS/VOLUM E] IN SERUM OR PLASMA 6.8 g/dL 6.0 - 8.3 02/15 Specimen Type: SERUM No comment entered. Ordering Provider: Jimena MORENO Report Released Date/Time: Nov 17, 2023 11:49 AM Reporting Lab: [place] [facility] [place] [address] [address] Performing Lab: [place] [facility] [place] [place] [address] [address] [facility] [facility] LIVER FUNCTION ALBUMIN [MASS/VOLUM E] IN SERUM OR PLASMA 4.2 g/dL 3.5 - 5.0 02/15 Specimen Type: SERUM No comment entered. Ordering Provider: Jimena MORENO Report Released Date/Time: Nov 17, 2023 11:49 AM Reporting Lab: [place] [facility] [place] [address] [address] Performing Lab: [place] [facility] [place] [address] [address] [facility] [place] [facility] LIVER FUNCTION ALKALINE PHOSPHATASE [ENZYMATIC ACTIVITY/VO LUME] IN SERUM OR PLASMA 63 U/L 40 - 150 02/15 Specimen Type: SERUM No comment entered. Ordering Provider: Jimena MORENO Report Released Date/Time: Nov 17, 2023 11:49 AM Reporting Lab: [place] [facility] [place] [address] [address] Performing Lab: [facility] [place] [facility] [address] [facility] [address] [facility] [place] [facility] LIVER FUNCTION ASPARTATE AMINOTRANSF ERASE [ENZYMATIC ACTIVITY/VO LUME] IN SERUM OR PLASMA 25 U/L 5 - 34 02/15 Specimen Type: SERUM No comment entered. Ordering Provider: Jimena MORENO Report Released Date/Time: Nov 17, 2023 11:49 AM Reporting Lab: [facility] [place] [facility] [address] [facility] [address] Performing Lab: [facility] [place] [facility] [address] [facility] [address] [facility] [place] [facility] LIVER FUNCTION ALANINE AMINOTRANSF ERASE [ENZYMATIC ACTIVITY/VO LUME] IN SERUM OR PLASMA 24 U/L 02/15 Specimen Type: SERUM No comment entered. Ordering Provider: Jimena MORENO Report Released Date/Time: Nov 17, 2023 11:49 AM Reporting Lab: [facility] [place] [facility] [address] [facility] [address] Performing Lab: [facility] [place] [facility] [address] [facility] [address] [place] [facility] [place] [facility] LIVER FUNCTION BILIRUBIN.T OTAL [MASS/VOLUM E] IN SERUM OR PLASMA 1.1 mg/dL 0.2 - 1.2 02/15 Specimen Type: SERUM No comment entered. Ordering Provider: Jimena MORENO Report Released Date/Time: Nov 17, 2023 11:49 AM Reporting Lab: [facility] [place] [facility] [address] [facility] [address] Performing Lab: [facility] [place] [address] [address] [facility] [place] [facility] BASIC METABOLIC PANEL (fasting) UREA NITROGEN [MASS/VOLUM E] IN SERUM OR PLASMA 18 mg/dL 7 - 25 02/15 Specimen Type: SERUM No comment entered. Ordering Provider: Jimena MORENO Report Released Date/Time: Nov 17, 2023 11:49 AM Reporting Lab: [facility] [place] [facility] [address] [facility] [address] Performing Lab: [facility] [place] [facility] [address] [facility] [address] [facility] [place] [facility] BASIC METABOLIC PANEL (fasting) GLUCOSE [MASS/VOLUM E] IN SERUM OR PLASMA 94 mg/dL 65 - 100 02/15 Specimen Type: SERUM No comment entered. Ordering Provider: Jimena MORENO Report Released Date/Time: Nov 17, 2023 11:49 AM Reporting Lab: [place] [facility] [place] [facility] [address] [facility] [address] Performing Lab: [place] [facility] [place] [facility] [address] [facility] [address] [facility] BASIC METABOLIC PANEL (fasting) SODIUM [MOLES/VOLU ME] IN SERUM OR PLASMA 141 mmol/L 135 - 145 02/15 Specimen Type: SERUM No comment entered. Ordering Provider: Jimena MORENO Report Released Date/Time: Nov 17, 2023 11:49 AM Reporting Lab: [facility] [place] [facility] [address] [facility] [address] Performing Lab: [place] [facility] [place] [facility] [address] [facility] [address] [facility] [facility] BASIC METABOLIC PANEL (fasting) POTASSIUM [MOLES/VOLU ME] IN SERUM OR PLASMA 4.1 mmol/L 3.5 - 5.0 02/15 Specimen Type: SERUM No comment entered. Ordering Provider: Jimena MORENO Report Released Date/Time: Nov 17, 2023 11:49 AM Reporting Lab: [facility] [place] [facility] [address] [facility] [address] Performing Lab: [facility] [place] [place] [facility] [address] [facility] [address] [facility] [place] [facility] BASIC METABOLIC PANEL (fasting) CHLORIDE [MOLES/VOLU ME] IN SERUM OR PLASMA 109 mmol/L 100 - 110 02/15 Specimen Type: SERUM No comment entered. Ordering Provider: Jimena MORENO Report Released Date/Time: Nov 17, 2023 11:49 AM Reporting Lab: [facility] [address] Performing Lab: [facility] [address] [address] [facility] HOSPITAL BASIC METABOLIC PANEL (fasting) CARBON DIOXIDE, TOTAL [MOLES/VOLU ME] IN SERUM OR PLASMA 24 meq/L 20 - 30 02/15 Specimen Type: SERUM No comment entered. Ordering Provider: Jimena MORENO Report Released Date/Time: Nov 17, 2023 11:49 AM Reporting Lab: [facility] [address] [address] Performing Lab: [facility] [address] [address] [facility] BASIC METABOLIC PANEL (fasting) CREATININE [MASS/VOLUM E] IN SERUM OR PLASMA 0.77 mg/dL 0.50 - 1.40 02/15 Specimen Type: SERUM No comment entered. Ordering Provider: Jimena MORENO Report Released Date/Time: Nov 17, 2023 11:49 AM Reporting Lab: [facility] [address] [address] Performing Lab: [facility]N [facility] [address] [facility] BASIC METABOLIC PANEL (fasting) GLOMERULAR FILTRATION RATE/1.73 SQ M.PREDICTED [VOLUME RATE/AREA] IN SERUM, PLASMA OR BLOOD BY CREATININE- BASED FORMULA (CKD-EPI 2020) >90mL/ min 60 02/15 Specimen Type: SERUM No comment entered. Ordering Provider: Jimena MORENO Report Released Date/Time: Nov 17, 2023 11:49 AM Reporting Lab: [facility] [address] [address] Performing Lab: [facility] [place] [facility] [address] [facility] [address] [facility] [facility] LIPID PANEL FASTING CHOLESTEROL [MASS/VOLUM E] IN SERUM OR PLASMA 146 mg/dL 02/15 Specimen Type: SERUM No comment entered. Ordering Provider: Jimena MORENO Report Released Date/Time: Nov 17, 2023 11:49 AM Reporting Lab: [facility] [place] [facility] [address] [facility] [address] Performing Lab: [facility] [place] [facility] [address] [facility] [address] [facility] LIPID PANEL FASTING TRIGLYCERID E [MASS/VOLUM E] IN SERUM OR PLASMA 96 mg/dL 0 - 150 02/15 Specimen Type: SERUM No comment entered. Ordering Provider: Jimena MORENO Report Released Date/Time: Nov 17, 2023 11:49 AM Reporting Lab: [facility] [place] [facility] [address] [facility] [address] Performing Lab: [facility] [place] [facility] [address] [facility] [address] [facility] [place] [facility] LIPID PANEL FASTING CHOLESTEROL IN LDL [MASS/VOLUM E] IN SERUM OR PLASMA BY CALCULATION 80 mg/dL 0 - 129 02/15 Specimen Type: SERUM No comment entered. Ordering Provider: Jimena MORENO Report Released Date/Time: Nov 17, 2023 11:49 AM Reporting Lab: [facility] [place] [facility] [address] [facility] [address] Performing Lab: [facility] [place] [address] [address] [facility] LIPID PANEL FASTING CHOLESTEROL .TOTAL/CHOL ESTEROL IN HDL [MASS RATIO] IN SERUM OR PLASMA 3.1 02/15 Specimen Type: SERUM No comment entered. Ordering Provider: Jimena MORENO Report Released Date/Time: Nov 17, 2023 11:49 AM Reporting Lab: [facility] [place] [facility] [address] [facility] [address] Performing Lab: [facility] [place] [facility] [address] [facility] [address] [facility] [place] [facility] LIPID PANEL FASTING CHOLESTEROL IN HDL [MASS/VOLUM E] IN SERUM OR PLASMA 47 mg/dL 40 - 60 02/15 Specimen Type: SERUM No comment entered. Ordering Provider: Jimena MORENO Report Released Date/Time: Nov 17, 2023 11:49 AM Reporting Lab: [facility] [place] [facility] [address] [facility] [address] Performing Lab: [facility] [address] [facility] [address] [facility] TESTOSTER ONE, TOTAL TESTOSTERON E [MASS/VOLUM E] IN SERUM OR PLASMA 585.06 ng/dL 220.00 - 892.00 11/08 Specimen Type: SERUM No comment entered. Ordering Provider: Jimena MORENO Report Released Date/Time: Jul 20, 2023 03:40 PM Reporting Lab: [facility] [place] [facility] [address] [facility] [address] Performing Lab: [place] [place] [address] [address] [facility] [place] [facility] LIVER FUNCTION PROTEIN [MASS/VOLUM E] IN SERUM OR PLASMA 6.4 g/dL 6.0 - 8.3 11/08 Specimen Type: SERUM No comment entered. Ordering Provider: Jimena MORENO Report Released Date/Time: Jul 20, 2023 03:40 PM Reporting Lab: [facility] [place] [facility] [address] [facility] [address] Performing Lab: [facility] [place] [facility] [address] [facility] [address] [facility] [place] [facility] LIVER FUNCTION ALBUMIN [MASS/VOLUM E] IN SERUM OR PLASMA 3.9 g/dL 3.5 - 5.0 11/08 Specimen Type: SERUM No comment entered. Ordering Provider: Jimena MORENO Report Released Date/Time: Jul 20, 2023 03:40 PM Reporting Lab: [facility] [address] [facility] [address] Performing Lab: [facility] [address] [facility] [address] [facility] [facility] LIVER FUNCTION ALKALINE PHOSPHATASE [ENZYMATIC ACTIVITY/VO LUME] IN SERUM OR PLASMA 64 U/L 40 - 150 11/08 Specimen Type: SERUM No comment entered. Ordering Provider: Jimena MORENO Report Released Date/Time: Jul 20, 2023 03:40 PM Reporting Lab: [facility] [place] [facility] [address] [facility] [address] Performing Lab: [facility] [place] [facility] [address] [facility] [address] [facility] [place] [facility] LIVER FUNCTION ASPARTATE AMINOTRANSF ERASE [ENZYMATIC ACTIVITY/VO LUME] IN SERUM OR PLASMA 21 U/L 5 - 34 11/08 Specimen Type: SERUM No comment entered. Ordering Provider: Jimena MORENO Report Released Date/Time: Jul 20, 2023 03:40 PM Reporting Lab: [facility] [place] [facility] [address] [facility] [address] Performing Lab: [facility] [place] [address] [facility] [address] [facility] [place] [facility] LIVER FUNCTION ALANINE AMINOTRANSF ERASE [ENZYMATIC ACTIVITY/VO LUME] IN SERUM OR PLASMA 29 U/L 11/08 Specimen Type: SERUM No comment entered. Ordering Provider: Jimena MORENO Report Released Date/Time: Jul 20, 2023 03:40 PM Reporting Lab: [facility] [place] [facility] [address] [facility] [address] Performing Lab: [facility] [address] [facility] [address] [facility] [place] LIVER FUNCTION BILIRUBIN.T OTAL [MASS/VOLUM E] IN SERUM OR PLASMA 0.6 mg/dL 0.2 - 1.2 11/08 Specimen Type: SERUM No comment entered. Ordering Provider: Jimena MORENO Report Released Date/Time: Jul 20, 2023 03:40 PM Reporting Lab: [facility] [place] [facility] [address] [facility] [address] Performing Lab: [facility] [place] [facility] [address] [facility] [address] [facility] [place] [facility] PSA PROSTATE SPECIFIC AG [MASS/VOLUM E] IN SERUM OR PLASMA 0.12 ng/mL 0.00 - 4.00 11/08 Specimen Type: SERUM No comment entered. 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, left eye, mild stage<b r/> BORASKI,AN BRANDYN E 02/13 [facility] CMPTR OPHTH IMG OPTIC NERVE [id number] Diagnos is: ICD-10- CM 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 Diagnos is: ICD-10- CM Z46.0 Encount er for fit/adj st of spectac les and contact lenses< br/> HAVEN MISHRA 02/13 [facility] [id number] 02/25 [facility] En[facility] [id number] 03/20 [facility] En[facility] [id number] 04/13 [facility] En[facility] [id number] 05/08 [facility] En[facility] [id number] 05/11 [facility] En[facility] [id number] 06/13 [facility] En[facility] [id number] 06/13 [facility] En[facility] [id number] 06/19 [facility] En[facility] [id number] 06/29 [facility] OFFICE O/P EST LOW 20-29 MIN [id number] Diagnos is: ICD-10- CM I11.9 Hyperte nsive heart disease without heart failure
APOORVA MORENO 07/20 [facility] En[facility] [id number] 07/20 [facility] En[facility] [id number] 07/22 [facility] Encounter [id number] 08/05 [facility] OFF/OP EST MAY X REQ PHY/QHP [id number] Diagnos is: ICD-10- CM I11.9 Hyperte nsive heart disease without heart failure
Cipriano GONZALES 08/21 [facility] En[facility] [id number] 09/04 [facility] Encounter [id number] 09/18 [facility] En[facility] [id number] 09/29 [facility] COMPRE OPH EXAM EST PT 1/> [id number] 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, left eye, mild stage<b r/> MASOUD ESTRADA 10/02 [facility] EXTEND[place] VISUAL FIELD XM [id number] 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, left eye, mild stage<b r/> MASOUD ESTRADA E 10/02 [facility] CMPTR OPHTH IMG OPTIC NERVE [id number] 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, left eye, mild stage<b r/> MASOUD ESTRADA E 10/02 [facility] Out[facility] Encounter [id number] 10/20 [facility] Encounter [id number] 10/28 [facility] Encounter [id number] 11/15 [facility] OFFICE O/P EST LOW 20 MIN [id number] Diagnos is: ICD-10- CM I11.9 Hyperte nsive heart disease without heart failure
APOORVA MORENO 11/16 [facility] En[facility] [id number] 11/16 [facility] Encounter [id number] 11/18 [facility] Encounter [id number] 11/29 [facility] Encounter [id number] 12/13 [facility] MTMS BY PHARM ADDL 15 MIN [id number] Diagnos is: ICD-10- CM 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
MADAI HOPKINS 12/14 [facility] En[facility] [id number] 02/10 [facility] En[facility] [id number] 02/10 [facility] Encounter [id number]/18 [facility] OFFICE O/P EST LOW 20 MIN [id number] Diagnos is: ICD-10- CM I11.9 Hyperte nsive heart disease without heart failure
APOORVA MORENO 02/18 [facility] En[facility] [id number]/02 [facility] Out[facility] Encounter [id number] [facility] Encounter [id number]/04 [facility] SELF CARE MNGMENT TRAINING [id number] Diagnos is: ICD-10- CM M47.896 Other spondyl osis, lumbar region< br/> ALEXANDRA SKELTON 05/05 [facility] [place] SELF CARE MNGMENT TRAINING [id number] Diagnos is: ICD-10- CM M47.896 Other spondyl osis, lumbar region< br/> ALEXANDRA SKELTON LU 05/20 [facility] [place] THERAPEUTI C EXERCISES [id number] Diagnos is: ICD-10- CM M47.896 Other spondyl osis, lumbar region< br/> ALEXANDRA SKELTON LU 06/10 [facility] Outpatient Encounter [id number] 06/14 [facility] [place] SELF CARE MNGMENT TRAINING [id number] Diagnos is: ICD-10- CM M47.896 Other spondyl osis, lumbar region< br/> ALEXANDRA SKELTON LU 06/16 [facility] Outpatient Encounter [id number] 06/17 [facility] [place] OFFICE O/P EST LOW 20 MIN [id number] Diagnos is: ICD-10- CM M47.26 Other spondyl osis with radicul opathy, lumbar region< br/> Lauren PERIERA 06/21 [facility] OFFICE O/P EST LOW 20 MIN [id number] Diagnos is: ICD-10- CM I11.9 Hyperte nsive heart disease without heart failure
APOORVA MORENO 06/21 [facility] OFF/OP EST MAY X REQ PHY/QHP [id number] Diagnos is: ICD-10- CM I11.9 Hyperte nsive heart disease without heart failure
Cipriano GONZALES 07/19 [facility] Social History Combined list of available smoking, tobacco, and other social history from Department of Defense and Veterans Affairs facilities. Social History Type Response Date Comment Source Tobacco smoking status [facility] VA-TOBACCO FORMER USER 11/17/2023 [facility] History of tobacco use [place]-[facility]ACCO QUIT 15 YRS OR MORE 11/17/2023 [facility] History of tobacco use [place] FORMER USER 10/30/2022 [facility] History of tobacco use [place] FORMER USER 07/31/2021 [facility] History of tobacco use [place]-TOBACCO QUIT 15 YRS OR MORE 02/10/2019 [facility] History of tobacco use QUIT TOBACCO USE > 7 YEARS AGO 11/27/2017 [facility] History of tobacco use QUIT TOBACCO USE > 7 YEARS AGO 11/05/2016 [facility] History of tobacco use QUIT TOBACCO USE > 7 YEARS AGO 09/17/2015 stopped 20 years ago [facility] History of tobacco use HISTORY OF SMOKING 02/24/2005 [facility] History of tobacco use QUIT TOBACCO USE > 7 YEARS AGO 05/28/2004 [facility] History of tobacco use HISTORY OF SMOKING 11/27/2003 [facility] History of tobacco use QUIT TOBACCO USE 1-7 YEARS AGO 03/15/2003 [facility] History of tobacco use HISTORY OF SMOKING 08/24/2002 [facility] History of tobacco use QUIT TOBACCO USE 1-7 YEARS AGO 02/11/2002 [facility] History of tobacco use HISTORY OF SMOKING 05/21/2001 quit 5 years ago [facility] Plan of Care List of future care activities from Department of [facility] facilities. Additional future care activities may be listed in the Assessment and Plan section. Date/Time Care Activity Care Activity Detail Facili ty 08/12/2024 AMBULAT[facility] - [facility] 08/12/2024 [facility]UL[facility] - [facility] 08[facility]12/2024 [facility]BULAT[facility] - [facility] 10/20/2024 AMBULATORY - MEDICINE AMBULATORY - MEDICI [facility] [place]
== END 2024-08-11 06:28 | disposition home or self-care (01) ==
LOC: CF 06:27
PROVIDERS: Visit Provider Internal Medicine
DX: M54.16 Radiculopathy, lumbar region (principal); G89.29 Other chronic pain
CPT/HCPCS: 64483

== ENCOUNTER 2024-08-11 09:38 | Outpatient (AMB) | payer MEDICARE, SELFPAY ==
--- OUTSIDE RECORDS SUMMARY | 2024-08-11 09:41 | XMS_ITS ---
Author Organization [facility] Address [address] [place] [address] Care Team Providers Care Webmethods Consultant Name Role Phone ZaidajocelynCesilia Landry Primary Care Provider Unav ailable Renato Joseph Unavailable [phone] RESULTS Component Value Reference Range Notes GI PANEL Reviewed date:05/03/2023 11:59:29 AM Interpretation: Performing Lab:[facility], [address] [place] [phone] Notes/Report: Campylobacter Not Detected Not Detect. Plesiomonas [...] is performed by Multiplexed PCR, utilizing the [employer] Array. REASON FOR VISIT c-diff PROBLEMS Problem Type ICD Code Onset Dates Problem Status W/U Status Risk SNOMED Code Notes Problem Diarrhea, unspecified type (R19.7) Active confirmed [id number] Encounters Encounter Location Date Provider Diagnosis [facility] [address] [place] [address] 04/30/2023 Renato Joseph Diarrhea, unspecifie d type R19.7 ASSESSMENTS Encounter Date Diagnosis Assessment Notes Treatment Notes Treatment Clinical Notes 04/30/2023 Diarrhea, unspecified type (ICD-10 - R19.7) PLAN OF TREATMENT Pending Test Test Name Order Date STOOL WBC 04/30/2023 C DIFFICILE RFLX PCR 04/30/2023
--- OUTSIDE RECORDS SUMMARY | 2024-08-11 09:41 | XMS_ITS | Continuity of Care Document ---
Author Name [facility] Organization [facility] Care Team Providers Care Second Butler Name Role Phone [facility] Unavailable Unavailable Problems Combined list of problems [...] [facility] Benign essential hypertension (SNOMED CT 5783999) Active Condition [facility] Bloating (ICD-9-CM 787.3) Active Condition [facility] CALCULUS OF KIDNEY Active Condition [facility] [...] Entered By: RADHA MORENO Comment: Colectomy @ [facility] about 2004.Aug 22, 2010 Entered By: RADHA MORENO Comment: His father had colon cancer. [facility] Exposure to potentially hazardous substance Active Condition Oct 14, 2023 Entered By: ANALY SOW Comment: Connect Snomed Code to ICD 10 Code refer to note dated 07/20/23 [facility] former smoker Active Condition [facility] [...] TUR 10/2101 Dr Stephens at [facility]. [facility] Hypogonadism Active Condition [facility] Impaired FASTING Glucose (ICD-9-CM 790.21) Active Condition [facility] Insomnia * (ICD-9-CM 780.52) Active Condition [facility] Sciatica Active Condition [facility] Thoracic aortic aneurysm without rupture Active Condition Jun 14, 2024 Entered By: RADHA MORENO Comment: Followed by [facility]. [facility] Tinnitus * (ICD-9-CM 388.30) Active Condition [facility] TINNITUS NOS Active Condition [facility] H. Pylori therapy 1997 Inactive Condition 07/11/2013 [facility] Hiatal Hernia Inactive Condition 01/13/2012 December 162011 Entered By: RADHA MORENO Comment: lap surgery about 2005 was curative. 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 [facility] Diagnosis: ICD-10-CM 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, left eye, mild stage Active Diagnosis [facility] Diagnosis: ICD-10-CM Z46.0 Encounter for fit/adjst of spectacles and contact lenses Active Diagnosis [facility] Diagnosis: ICD-10-CM 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, left eye, mild stage Active [facility] Medications Combined list of outpatient medications [...] ON RESPIR ATORY (INHAL ATION) ACTIVE 11/17/2024 [id number] APOORVA MORNEO 2023 1 [facility] AMLODIPINE BESYLATE 10MG TAB TAKE ONE TABLET BY MOUTH ONCE DAILY FOR BLOOD PRESSURE /HEART, DO NOT TAKE WITH GRAPEFRU IT JUICE ORAL ACTIVE 06/22/2025 [id number] APOORVA MORENO 2023 90 [facility] AMLODIPINE BESYLATE 10MG TAB TAKE ONE TABLET BY MOUTH ONCE DAILY FOR BLOOD PRESSURE /HEART, DO NOT TAKE WITH GRAPEFRU IT JUICE ORAL DISCONT INUED (EDIT) 02/19/2025 [id number] 4 APOORVA MORENO 2023 30 [facility] AMLODIPINE BESYLATE 10MG TAB TAKE ONE TABLET BY MOUTH ONCE DAILY FOR BLOOD PRESSURE /HEART, DO NOT TAKE WITH GRAPEFRU IT JUICE ORAL DISCONT INUED (EDIT) 07/20/2024 [id number] 4 APOORVA MORENO 2022 30 [facility] AMLODIPINE BESYLATE 2.5MG TAB TAKE THREE TABLETS BY MOUTH ONCE DAILY FOR BLOOD PRESSURE /HEART, DO NOT TAKE WITH GRAPEFRU IT JUICE ORAL DISCONT INUED (EDIT) 11/17/2024 [id number] APOORVA MORENO 2023 90 [facility] AMLODIPINE BESYLATE 5MG TAB TAKE ONE TABLET BY MOUTH ONCE DAILY FOR BLOOD PRESSURE /HEART, DO NOT TAKE WITH GRAPEFRU IT JUICE ORAL DISCONT INUED (EDIT) 11/05/2023 [id number] APOORVA MORENO 2022 30 [facility] ASPIRIN 81MG TAB,EC TAKE ONE TABLET BY MOUTH DAILY ORAL ACTIVE APOORVA MORENO 2013 [facility] ATORVASTATI N CA 40MG TAB TAKE ONE-HALF TABLET BY MOUTH ONCE DAILY FOR CHOLESTE ROL REPLACES SIMVASTA TIN. ORAL SUSPEND ED 02/19/2025 [id number] 5 APOORVA MORENO 2023 45 [facility] ATORVASTATI N CA 40MG TAB TAKE ONE-HALF TABLET BY MOUTH ONCE DAILY FOR CHOLESTE ROL REPLACES SIMVASTA TIN. ORAL DISCONT INUED 07/20/2024 [id number] APOORVA MORENO 2022 45 [facility] ATORVASTATI N CA 40MG TAB TAKE ONE-HALF TABLET BY MOUTH ONCE DAILY FOR CHOLESTE ROL REPLACES SIMVASTA TIN. ORAL DISCONT INUED (EDIT) 11/05/2023 [id number] 3 APOORVA MORENO 2022 15 [facility] CARVEDILOL 12.5MG TAB TAKE ONE TABLET BY MOUTH TWICE DAILY FOR HIGH BLOOD PRESSURE ORAL ACTIVE 06/22/2025 [id number] APOORVA MORENO 2023 180 [facility] DICLOFENAC NA 1% GEL,TOP APPLY 4 GRAMS TOPICALL Y THREE TIMES DAILY NEEDED FOR OSTEOART HRITIS - USE DOSING CARD PROVIDED IN BOX TOPICSamaria Cota 01/14/2024 [id number] 4 RAOUL HOPKINS 2023 300 [facility] LATANOPROST 0.005% SOLN,OPH INSTILL 1 DROP INTO THE LEFT EYE AT BEDTIME TO REDUCE PRESSURE IN THE EYE OPHTHA LMIC ACTIVE 05/05/2025 [id number] 4 Samaria ESTRADA NDREW E 2023 7.5 [facility] LATANOPROST 0.005% SOLN,OPH INSTILL 1 DROP INTO THE LEFT EYE AT BEDTIME TO REDUCE PRESSURE IN THE EYE OPHTHA LMIC DISCONT INUED 02/14/2024 [id number] 4 Samaria ESTRADA NDREW E 2022 5 [facility] TESTOSTERON E (EQV-ANDROG EL) 1% 5GM/PKT GEL,TOP APPLY 1 PACKET TOPICALL Y ONCE DAILY TO SHOULDER . RUB IN UNTIL DRY, THEN WASH HANDS WITH SOAP AND WATER GRISELDAA L ACTIVE 12/22/2024 [id number] 4 JOSE DE JESUSAPOORVA HORAN 2023 30 [facility] TESTOSTERON E (EQV-ANDROG EL) 1% 5GM/PKT GEL,TOP APPLY 1 PACKET TOPICALL Y ONCE DAILY TO SHOULDER . RUB IN UNTIL DRY, THEN WASH HANDS WITH SOAP AND WATER TOPICA L DISCONT INUED 03/20/2024 [id number] SUSI ALBERTO MD 2023 30 [facility] TESTOSTERON E (EQV-ANDROG EL) 1% 5GM/PKT GEL,TOP APPLY 1 PACKET TOPICALL Y ONCE DAILY TO SHOULDER . RUB IN UNTIL DRY, THEN WASH HANDS WITH SOAP AND WATER TOPICA L 08/28/2023 [id number] SUSI ALBERTO MD 2022 30 [place] ZOLPIDEM TARTRATE 10MG TAB TAKE ONE TABLET BY MOUTH AT BEDTIME FOR SLEEP ORAL ACTIVE 11/05/2024 [id number] APOORVA MORENO [address] [facility] [place]ELD ZOLPIDEM TARTRATE 10MG TAB TAKE ONE TABLET BY MOUTH AT BEDTIME NEEDED FOR SLEEP ORAL DISCONT INUED 11/11/2023 [id number] 4 APOORVA MORENO 2022 30 [facility] ZOLPIDEM TARTRATE 10MG TAB TAKE ONE TABLET BY MOUTH AT BEDTIME FOR SLEEP ORAL 04/22/2024 [id number] 4 APOORVA MORENO 2023 30 [facility] Allergies, Adverse Reactions, Alerts Combined list of allergies from Department of Defense and Veterans Affairs facilities. It does not include entries that were removed or entered in error. Substance Category Reaction Severity Reaction type Status Date Reported Comments Source AUGMENTIN Propensity to adverse reactions to drug (finding) Abdominal pain active 1 [facility] SULFONAMIDE/ RELATED ANTIMICROBIA LS Propensity to adverse reactions to drug (finding) HIVES active 8 [facility] Immunizations Combined list of available immunizations from the Department of Defense and Veterans Affairs facilities. Immunization Series Date Given Administered By Site Reaction Lot Number CVX Code Drug Field [employer]or Status Comments Source COVID-19 (MODERNA), MRNA, LNP-S, PF, 50 MCG/0.5 ML (AGES 12+ YEARS) 2023 CLARA JULIO LEFT DELTO ID [id number] 312 complet ed [facility] INFLUENZA, HIGH-DOSE, TRIVALENT, PF 2023 CLARA JULIO LEFT DELTO ID [id number] 135 complet ed [facility] INFLUENZA, HIGH-DOSE, QUADRIVALENT 2022 CHERYCHARLY RAZO E LEFT DELTO ID [id number] 197 complet ed [facility] COVID-19 (MODERNA), MRNA, LNP-S, PF, 50 MCG/0.5 ML (AGES 12+ YEARS) 4 2022 LEFT DELTO ID 312 complet ed [employer] Lot#: [id number] Mfr: MODERNA [employer] [facility] INFLUENZA VACCINE, QUADRIVALENT, ADJUVANTED 2021 205 complet ed [facility] COVID-19 (MODERNA), MRNA, LNP-S, PF, 100 MCG/0.5ML DOSE OR 50 MCG/0.25ML DOSE 3 2020 207 complet ed [facility] COVID-19 (MODERNA), MRNA, LNP-S, PF, [...] TD(ADULT) UNSPECIFIED FORMULATION 2014 139 complet ed [facility] ED. Probably TD. after a dogbite. Our [...] Reference Range Date Interpretation Specimen Comments Source BASIC METABOLIC PANEL (fasting) UREA NITROGEN [MASS/VOLUM E] IN SERUM OR PLASMA 21 mg/dL 7 - 25 06/14 Specimen Type: SERUM No comment entered. Ordering Provider: Jimena MORENO Report Released Date/Time: Jun 08, 2024 11:04 AM Reporting Lab: [facility] [place] [facility] [address] [facility] [address] Performing Lab: [facility] [place] [facility] [address] [facility] [address] [facility] [place] BASIC METABOLIC PANEL (fasting) GLUCOSE [MASS/VOLUM E] IN SERUM OR PLASMA 105 mg/dL 65 - 100 06/14 H Specimen Type: SERUM No comment entered. Ordering Provider: Jimena MORENO Report Released Date/Time: Jun 08, 2024 11:04 AM Reporting Lab: [facility] [place] [facility] [address] [facility] [address] Performing Lab: [facility] [place] [facility] [address] [facility] [address] [facility] BASIC METABOLIC PANEL (fasting) SODIUM [MOLES/VOLU ME] IN SERUM OR PLASMA 138 mmol/L 135 - 145 06/14 Specimen Type: SERUM No comment entered. Ordering Provider: Jimena MORENO Report Released Date/Time: Jun 08, 2024 11:04 AM Reporting Lab: [facility] [place] [facility] [address] [facility] [address] Performing Lab: [facility] [place] [facility] [address] [facility] [address] [facility] BASIC METABOLIC PANEL (fasting) POTASSIUM [MOLES/VOLU ME] IN SERUM OR PLASMA 4.2 mmol/L 3.5 - 5.0 06/14 Specimen Type: SERUM No comment entered. Ordering Provider: Jimena MORENO Report Released Date/Time: Jun 08, 2024 11:04 AM Reporting Lab: [facility] [place] [facility] [address] [facility] [address] Performing Lab: [facility] [place] [facility] [address] [facility] [address] [facility] [place] [facility] BASIC METABOLIC PANEL (fasting) CHLORIDE [MOLES/VOLU ME] IN SERUM OR PLASMA 107 mmol/L 100 - 110 10/29 /2024 Specimen Type: SERUM No comment entered. Ordering Provider: Jimena MORENO Report Released Date/Time: Jun 08, 2024 11:04 AM Reporting Lab: [facility]ITAL[facility] [address] [address] Performing Lab: [facility] TRN [address] [address] [facility] BASIC METABOLIC PANEL (fasting) CARBON DIOXIDE, TOTAL [MOLES/VOLU ME] IN SERUM OR PLASMA 22 meq/L 20 - 30 06/14 Specimen Type: SERUM No comment entered. Ordering Provider: Jimena MORENO Report Released Date/Time: Jun 08, 2024 11:04 AM Reporting Lab: [facility] TR[facility] [address] [address] Performing Lab: [facility]ANRL [facility] [address] [facility] BASIC METABOLIC PANEL (fasting) CREATININE [MASS/VOLUM E] IN SERUM OR PLASMA 0.74 mg/dL 0.50 - 1.40 06/14 Specimen Type: SERUM No comment entered. Ordering Provider: Jimena MORENO Report Released Date/Time: Jun 08, 2024 11:04 AM Reporting Lab: [facility] TR[facility] [address] [address] Performing Lab: [facility] TRN [facility] [address] [facility]N [facility] BASIC METABOLIC PANEL (fasting) GLOMERULAR FILTRATION RATE/1.73 SQ M.PREDICTED [VOLUME RATE/AREA] IN SERUM, PLASMA OR BLOOD BY CREATININE- BASED FORMULA (CKD-EPI 2020) >90mL/ min 60 06/14 Specimen Type: SERUM No comment entered. Ordering Provider: Jimena MORENO Report Released Date/Time: Jun 08, 2024 11:04 AM Reporting Lab: [facility]N [facility] [address] Performing Lab: [facility] [place] [facility] [address] [facility] [address] [facility] [place] [facility] LIPID PANEL FASTING CHOLESTEROL [MASS/VOLUM E] IN SERUM OR PLASMA 166 mg/dL 06/14 Specimen Type: SERUM No comment entered. Ordering Provider: Jimena MORENO Report Released Date/Time: Jun 08, 2024 11:04 AM Reporting Lab: [facility] [place] [facility] [address] [facility] [address] Performing Lab: [facility] [place] [facility] [address] [facility] [address] [facility] [place] [facility] LIPID PANEL FASTING TRIGLYCERID E [MASS/VOLUM E] IN SERUM OR PLASMA 71 mg/dL 0 - 150 06/14 Specimen Type: SERUM No comment entered. Ordering Provider: Jimena MORENO Report Released Date/Time: Jun 08, 2024 11:04 AM Reporting Lab: [facility] [place] [facility] [address] [facility] [address] Performing Lab: [facility] [place] [facility] [address] [facility] [address] [facility] [place] [facility] LIPID PANEL FASTING CHOLESTEROL IN LDL [MASS/VOLUM E] IN SERUM OR PLASMA BY CALCULATION 95 mg/dL 0 - 129 06/14 Specimen Type: SERUM No comment entered. Ordering Provider: Jimena MORENO Report Released Date/Time: Jun 08, 2024 11:04 AM Reporting Lab: [facility] [place] [facility] [address] [facility] [address] Performing Lab: [facility] [place] [address] [address] [facility] [place] [facility] LIPID PANEL FASTING CHOLESTEROL .TOTAL/CHOL ESTEROL IN HDL [MASS RATIO] IN SERUM OR PLASMA 2.9 06/14 Specimen Type: SERUM No comment entered. Ordering Provider: Jimena MORENO Report Released Date/Time: Jun 08, 2024 11:04 AM Reporting Lab: [facility] [place] [facility] [address] [facility] [address] Performing Lab: [facility] [place] [facility] [address] [facility] [address] [facility] [place] [facility] LIPID PANEL FASTING CHOLESTEROL IN HDL [MASS/VOLUM E] IN SERUM OR PLASMA 57 mg/dL 40 - 60 06/14 Specimen Type: SERUM No comment entered. Ordering Provider: Jimena MORENO Report Released Date/Time: Jun 08, 2024 11:04 AM Reporting Lab: [facility] [place] [facility] [address] [facility] [address] Performing Lab: [facility] [place] [facility] [address] [facility] [address] [facility] [place] [facility] LIVER FUNCTION PROTEIN [MASS/VOLUM E] IN SERUM OR PLASMA 6.8 g/dL 6.0 - 8.3 06/14 Specimen Type: SERUM No comment entered. Ordering Provider: Jimena MORENO Report Released Date/Time: Jun 08, 2024 11:04 AM Reporting Lab: [facility] [place] [facility] [address] [facility] [address] Performing Lab: [facility] [place] [facility] [address] [facility] [address] [facility] [place] [facility] LIVER FUNCTION ALBUMIN [MASS/VOLUM E] IN SERUM OR PLASMA 4.0 g/dL 3.5 - 5.0 06/14 Specimen Type: SERUM No comment entered. Ordering Provider: Jimena MORENO Report Released Date/Time: Jun 08, 2024 11:04 AM Reporting Lab: [facility] [place] [facility] [address] [facility] [address] Performing Lab: [facility] [place] [facility] [address] [facility] [address] [facility] [place] [facility] LIVER FUNCTION ALKALINE PHOSPHATASE [ENZYMATIC ACTIVITY/VO LUME] IN SERUM OR PLASMA 63 U/L 40 - 150 06/14 Specimen Type: SERUM No comment entered. Ordering Provider: Jimena MORENO Report Released Date/Time: Jun 08, 2024 11:04 AM Reporting Lab: [facility] [place] [facility] [address] [facility] [address] Performing Lab: [facility] [place] [facility] [address] [facility] [address] [facility] [place] [facility] LIVER FUNCTION ASPARTATE AMINOTRANSF ERASE [ENZYMATIC ACTIVITY/VO LUME] IN SERUM OR PLASMA 18 U/L 5 - 34 06/14 Specimen Type: SERUM No comment entered. Ordering Provider: Jimena MORENO Report Released Date/Time: Jun 08, 2024 11:04 AM Reporting Lab: [facility] [place] [facility] [address] [facility] [address] Performing Lab: [facility] [place] [facility] [address] [facility] [address] [facility] [place] [facility] LIVER FUNCTION ALANINE AMINOTRANSF ERASE [ENZYMATIC ACTIVITY/VO LUME] IN SERUM OR PLASMA 30 U/L 06/14 Specimen Type: SERUM No comment entered. Ordering Provider: Jimena MORENO Report Released Date/Time: Jun 08, 2024 11:04 AM Reporting Lab: [facility] [place] [facility] [address] [facility] [address] Performing Lab: [facility] [place] [facility] [address] [facility] [address] [facility] [place] [facility] LIVER FUNCTION BILIRUBIN.T OTAL [MASS/VOLUM E] IN SERUM OR PLASMA 0.8 mg/dL 0.2 - 1.2 06/14 Specimen Type: SERUM No comment entered. Ordering Provider: Jimena MORENO Report Released Date/Time: Jun 08, 2024 11:04 AM Reporting Lab: [facility] [place] [facility] [address] [facility] [address] Performing Lab: [facility] [place] [facility] [address] [facility] [address] [facility] [place] [facility] BASIC METABOLIC PANEL (fasting) UREA NITROGEN [MASS/VOLUM E] IN SERUM OR PLASMA 18 mg/dL 7 - 25 02/15 Specimen Type: SERUM No comment entered. Ordering Provider: Jimena MORENO Report Released Date/Time: Nov 17, 2023 11:49 AM Reporting Lab: [facility]TRN [address] [address] Performing Lab: [facility] HEALTHTRN [address] [address] [facility]USN [facility] BASIC METABOLIC PANEL (fasting) GLUCOSE [MASS/VOLUM E] IN SERUM OR PLASMA 94 mg/dL 65 - 100 02/15 Specimen Type: SERUM No comment entered. Ordering Provider: Jimena MORENO Report Released Date/Time: Nov 17, 2023 11:49 AM Reporting Lab: [facility] [address] [address] Performing Lab: [facility]USN [address] [address] [facility] BASIC METABOLIC PANEL (fasting) SODIUM [MOLES/VOLU ME] IN SERUM OR PLASMA 141 mmol/L 135 - 145 02/15 Specimen Type: SERUM No comment entered. Ordering Provider: Jimena MORENO Report Released Date/Time: Nov 17, 2023 11:49 AM Reporting Lab: [facility]ALTHTRN [facility] [address] Performing Lab: [facility] TRN [facility] [address] [facility]USN [facility] BASIC METABOLIC PANEL (fasting) POTASSIUM [MOLES/VOLU ME] IN SERUM OR PLASMA 4.1 mmol/L 3.5 - 5.0 02/15 Specimen Type: SERUM No comment entered. Ordering Provider: Jimena MORENO Report Released Date/Time: Nov 17, 2023 11:49 AM Reporting Lab: [facility] HEALTHTRN [address] [address] Performing Lab: [facility] [place] [facility] [address] [facility] [address] [facility]ITALUSE [facility] BASIC METABOLIC PANEL (fasting) CHLORIDE [MOLES/VOLU ME] IN SERUM OR PLASMA 109 mmol/L 100 - 110 02/15 Specimen Type: SERUM No comment entered. Ordering Provider: Jimena MORENO Report Released Date/Time: Nov 17, 2023 11:49 AM Reporting Lab: [facility] [place] [facility] [address] [facility] [address] Performing Lab: [facility]RL W[facility]N [facility]ITALUSE[facility] [address] [facility] [address] [facility]RL [facility] BASIC METABOLIC PANEL (fasting) CARBON DIOXIDE, TOTAL [MOLES/VOLU ME] IN SERUM OR PLASMA 24 meq/L 20 - 30 02/15 Specimen Type: SERUM No comment entered. Ordering Provider: Jimena MORENO Report Released Date/Time: Nov 17, 2023 11:49 AM Reporting Lab: [id number] [address] Performing Lab: [facility]ITALUSE[facility] [address] [facility] [address] [facility] BASIC METABOLIC PANEL (fasting) CREATININE [MASS/VOLUM E] IN SERUM OR PLASMA 0.77 mg/dL 0.50 - 1.40 02/15 Specimen Type: SERUM No comment entered. Ordering Provider: Jimena MORENO Report Released Date/Time: Nov 17, 2023 11:49 AM Reporting Lab: [id number] [address] Performing Lab: [place] [facility] [address] [facility]ITAL[facility] BASIC METABOLIC PANEL (fasting) GLOMERULAR FILTRATION RATE/1.73 SQ M.PREDICTED [VOLUME RATE/AREA] IN SERUM, PLASMA OR BLOOD BY CREATININE- BASED FORMULA (CKD-EPI 2020) >90mL/ min 60 02/15 Specimen Type: SERUM No comment entered. Ordering Provider: Jimena MORENO Report Released Date/Time: Nov 17, 2023 11:49 AM Reporting Lab: [facility] [place] [facility] [address] [facility] [address] Performing Lab: [facility] [place] [facility] [address] [facility] [address] [place] [facility] [facility] LIPID PANEL FASTING CHOLESTEROL [MASS/VOLUM E] IN SERUM OR PLASMA 146 mg/dL 02/15 Specimen Type: SERUM No comment entered. Ordering Provider: Jimena MORENO Report Released Date/Time: Nov 17, 2023 11:49 AM Reporting Lab: [facility] [place] [facility] [address] [facility] [address] Performing Lab: [facility] [place] [address] [address] [facility] [place] [facility] LIPID PANEL FASTING TRIGLYCERID E [MASS/VOLUM E] IN SERUM OR PLASMA 96 mg/dL 0 - 150 02/15 Specimen Type: SERUM No comment entered. Ordering Provider: Jimena MORENO Report Released Date/Time: Nov 17, 2023 11:49 AM Reporting Lab: [facility] [place] [facility] [address] [facility] [address] Performing Lab: [facility] [place] [address] [address] [facility] [place] [facility] LIPID PANEL FASTING CHOLESTEROL IN LDL [MASS/VOLUM E] IN SERUM OR PLASMA BY CALCULATION 80 mg/dL 0 - 129 02/15 Specimen Type: SERUM No comment entered. Ordering Provider: Jimena MORENO Report Released Date/Time: Nov 17, 2023 11:49 AM Reporting Lab: [facility] [place] [facility] [address] [facility] [address] Performing Lab: [facility] [place] [address] [address] [facility] [place] [facility] LIPID PANEL FASTING CHOLESTEROL .TOTAL/CHOL ESTEROL IN HDL [MASS RATIO] IN SERUM OR PLASMA 3.1 02/15 Specimen Type: SERUM No comment entered. Ordering Provider: Jimena MORENO Report Released Date/Time: Nov 17, 2023 11:49 AM Reporting Lab: [facility] [place] [facility] [address] [facility] [address] Performing Lab: [facility] [address] [facility] [address] [facility] LIPID PANEL FASTING CHOLESTEROL IN HDL [MASS/VOLUM E] IN SERUM OR PLASMA 47 mg/dL 40 - 60 02/15 Specimen Type: SERUM No comment entered. Ordering Provider: Jimena MORENO Report Released Date/Time: Nov 17, 2023 11:49 AM Reporting Lab: [facility] [address] Performing Lab: [facility] [address] [facility] [address] [facility] LIVER FUNCTION PROTEIN [MASS/VOLUM E] IN SERUM OR PLASMA 6.8 g/dL 6.0 - 8.3 02/15 Specimen Type: SERUM No comment entered. Ordering Provider: Jimena MORENO Report Released Date/Time: Nov 17, 2023 11:49 AM Reporting Lab: [facility] [address] [address] Performing Lab: [facility] [address] [facility] [address] [facility] [place] [facility] LIVER FUNCTION ALBUMIN [MASS/VOLUM E] IN SERUM OR PLASMA 4.2 g/dL 3.5 - 5.0 02/15 Specimen Type: SERUM No comment entered. Ordering Provider: Jimena MORENO Report Released Date/Time: Nov 17, 2023 11:49 AM Reporting Lab: [facility] [address] [address] Performing Lab: [facility] [address] [address] [facility] [place] [facility] LIVER FUNCTION ALKALINE PHOSPHATASE [ENZYMATIC ACTIVITY/VO LUME] IN SERUM OR PLASMA 63 U/L 40 - 150 02/15 Specimen Type: SERUM No comment entered. Ordering Provider: Jimena MORENO Report Released Date/Time: Nov 17, 2023 11:49 AM Reporting Lab: [facility] [place] [address] [address] Performing Lab: [facility] [place] [facility] [address] [facility] [address] [facility] [place] [facility] LIVER FUNCTION ASPARTATE AMINOTRANSF ERASE [ENZYMATIC ACTIVITY/VO LUME] IN SERUM OR PLASMA 25 U/L 5 - 34 02/15 Specimen Type: SERUM No comment entered. Ordering Provider: Jimena MORENO Report Released Date/Time: Nov 17, 2023 11:49 AM Reporting Lab: [facility] [place] [address] [address] Performing Lab: [facility] [place] [address] [address] [facility] [place] [facility] LIVER FUNCTION ALANINE AMINOTRANSF ERASE [ENZYMATIC ACTIVITY/VO LUME] IN SERUM OR PLASMA 24 U/L 02/15 Specimen Type: SERUM No comment entered. Ordering Provider: Jimena MORENO Report Released Date/Time: Nov 17, 2023 11:49 AM Reporting Lab: [facility] [place] [address] [address] Performing Lab: [facility] [place] [address] [address] [facility] [place] [facility] LIVER FUNCTION BILIRUBIN.T OTAL [MASS/VOLUM E] IN SERUM OR PLASMA 1.1 mg/dL 0.2 - 1.2 02/15 Specimen Type: SERUM No comment entered. Ordering Provider: Jimena MORENO Report Released Date/Time: Nov 17, 2023 11:49 AM Reporting Lab: [facility] [place] [facility] [address] [facility] [address] Performing Lab: [facility] [place] [facility] [address] [facility] [address] [facility] [place] [facility] PSA PROSTATE SPECIFIC AG [MASS/VOLUM E] IN SERUM OR PLASMA 0.14 ng/mL 0.00 - 4.00 02/15 Specimen Type: SERUM No comment entered. Ordering Provider: Jimena MORENO Report Released Date/Time: Nov 17, 2023 11:49 AM Reporting Lab: [facility] [place] [facility] [address] [facility] [address] Performing Lab: [facility] [place] [address] [address] [facility] [place] [facility] LIVER FUNCTION PROTEIN [MASS/VOLUM E] IN SERUM OR PLASMA 6.4 g/dL 6.0 - 8.3 11/08 Specimen Type: SERUM No comment entered. Ordering Provider: Jimena MORENO Report Released Date/Time: Jul 20, 2023 03:40 PM Reporting Lab: [facility] [place] [address] [address] Performing Lab: [facility] [place] [address] [address] [facility] [place] [facility] LIVER FUNCTION ALBUMIN [MASS/VOLUM E] IN SERUM OR PLASMA 3.9 g/dL 3.5 - 5.0 11/08 Specimen Type: SERUM No comment entered. Ordering Provider: Jimena MORENO Report Released Date/Time: Jul 20, 2023 03:40 PM Reporting Lab: [facility] [place] [facility] [address] [facility] [address] Performing Lab: [facility] [place] [address] [address] [facility] [place] [facility] LIVER FUNCTION ALKALINE PHOSPHATASE [ENZYMATIC ACTIVITY/VO LUME] IN SERUM OR PLASMA 64 U/L 40 - 150 11/08 Specimen Type: SERUM No comment entered. Ordering Provider: Jimena MORENO Report Released Date/Time: Jul 20, 2023 03:40 PM Reporting Lab: [facility] [place] [facility] [address] [facility] [address] Performing Lab: [facility] [place] [facility] [address] [facility] [address] [facility] [place] [facility] LIVER FUNCTION ASPARTATE AMINOTRANSF ERASE [ENZYMATIC ACTIVITY/VO LUME] IN SERUM OR PLASMA 21 U/L 5 - 34 11/08 Specimen Type: SERUM No comment entered. Ordering Provider: Jimena MORENO Report Released Date/Time: Jul 20, 2023 03:40 PM Reporting Lab: [facility] [place] [facility] [address] [facility] [address] Performing Lab: [facility] [place] [address] [address] [facility] [place] [facility] LIVER FUNCTION ALANINE AMINOTRANSF ERASE [ENZYMATIC ACTIVITY/VO LUME] IN SERUM OR PLASMA 29 U/L 11/08 Specimen Type: SERUM No comment entered. Ordering Provider: Jimena MORENO Report Released Date/Time: Jul 20, 2023 03:40 PM Reporting Lab: [facility] [place] [address] [address] Performing Lab: [facility] [place] [address] [address] [facility] [place] [facility] LIVER FUNCTION BILIRUBIN.T OTAL [MASS/VOLUM E] IN SERUM OR PLASMA 0.6 mg/dL 0.2 - 1.2 11/08 Specimen Type: SERUM No comment entered. Ordering Provider: Jimena MORENO Report Released Date/Time: Jul 20, 2023 03:40 PM Reporting Lab: [facility] [place] [address] [address] Performing Lab: [facility] [place] [address] [address] [facility] [place] [facility] PSA PROSTATE SPECIFIC AG [MASS/VOLUM E] IN SERUM OR PLASMA 0.12 ng/mL 0.00 - 4.00 11/08 Specimen Type: SERUM No comment entered. Ordering Provider: Jimena MORENO Report Released Date/Time: Jul 20, 2023 03:40 PM Reporting Lab: [facility] [place] [facility] [address] [facility] [address] Performing Lab: [facility] [place] [facility] [address] [facility] [address] [facility] [place] [facility] TESTOSTER ONE, TOTAL TESTOSTERON E [MASS/VOLUM E] IN SERUM OR PLASMA 585.06 ng/dL 220.00 - 892.00 11/08 Specimen Type: SERUM No comment entered. Ordering Provider: Jimena MORENO Report Released Date/Time: Jul 20, 2023 03:40 PM Reporting Lab: [facility] [place] [facility] [address] [facility] [address] Performing Lab: [facility] [place] [address] [address] [facility] [place] [facility] Vital Signs Combined list of inpatient and outpatient Vital Signs from Department of Defense and Veterans Affairs, ranging from 12 months to all on record, depending upon the facility. Vital Sign Value Date Comments Source SYSTOLIC BLOOD PRESSURE 140 07/19/20 24 10:16:26 [facility] [place] [facility] DIASTOLIC BLOOD PRESSURE 82 024 10:16:26 [facility] [place] [facility] PULSE 60 07/19/2024 10:16:26 [facility] [place] [facility] SYSTOLIC BLOOD PRESSURE 140 06/21/20 12:58:24 [facility] [place] [facility] DIASTOLIC BLOOD PRESSURE 70 12:58:24 [facility] [place] [facility] PAIN 5 06/21/2024 12:58:24 [facility] [place] [facility] SYSTOLIC BLOOD PRESSURE 161 02/19/20 24 10:47:22 [facility] [place] [facility] DIASTOLIC BLOOD PRESSURE 95 024 10:47:22 VA [...] Disposition Source [facility] [place] [facility] VISUAL FIELD EXAMINATIO N(S) [id number] Diagnos is: ICD-10- CM H40.112 1 Primary open-an gle glaucom a, left eye, mild stage<b r/> BORASKI,AN BRANDYN E 02/13 [facility] [place] [facility] CMPTR OPHTH IMG OPTIC NERVE [id number] Diagnos is: ICD-10- CM H40.112 1 Primary open-an gle glaucom a, left eye, mild stage<b r/> BORASKI,AN BRANDYN E 02/13 [facility] [place] [facility] [place] [facility] FIT SPECTACLES MONOFOCAL [id number] Diagnos is: ICD-10- CM H40.112 1 Primary open-an gle glaucom a, left eye, mild stage<b r/> BORASKI,AN BRANDYN E 02/13 [facility] [place] [facility] Outpatient Encounter [id number] 02/13 [facility] [place] [facility] FIT SPECTACLES MONOFOCAL [id number] Diagnos is: ICD-10- CM Z46.0 Encount er for fit/adj st of spectac les and contact lenses< br/> HAVEN MISHRA 02/13 [facility] En[facility] [id number] 02/25 [facility] En[facility] [id number] 03/20 [facility] En[facility] [id number] 04/13 [facility] Encounter [id number] 05/08 [facility] En[facility] [id number] 05/11 [facility] En[facility] [id number] 06/13 [facility] En[facility] [id number] 06/13 [facility] En[facility] [id number] 06/19 [facility] En[facility] [id number] 06/29 [facility] OFFICE O/P EST LOW 20-29 MIN [id number] Diagnos is: ICD-10- CM I11.9 Hyperte nsive heart disease without heart failure
APOORVA MORENO 07/20 [facility] En[facility] [id number] 07/20 [facility] Encounter [id number] 07/22 [facility] Out[facility] Encounter [id number] 08/05 [facility] OFF/OP EST MAY X REQ PHY/QHP [id number] Diagnos is: ICD-10- CM I11.9 Hyperte nsive heart disease without heart failure
Cipriano GONZALES 08/21 [facility] En[facility] [id number] 09/04 [facility] Encounter [id number] 09/18 [facility] Encounter [id number] 09/29 [facility] COMPRE OPH EXAM EST PT 1/> [id number] 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, left eye, mild stage<b r/> MASOUD ESTRADA 10/02 [facility] EXTENDED VISUAL FIELD XM [id number] 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, left eye, mild stage<b r/> MASOUD ESTRADA E 10/02 [facility] CMPTR OPHTH IMG OPTIC NERVE [id number] 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, left eye, mild stage<b r/> MASOUD ESTRADA E 10/02 [facility] Out[facility] Encounter [id number] 10/20 [facility] Encounter [id number] 10/28 [facility] Out[facility] Encounter [id number] 11/15 [facility] OFFICE O/P EST LOW 20 MIN [id number] Diagnos is: ICD-10- CM I11.9 Hyperte nsive heart disease without heart failure
APOORVA MORENO 11/16 [facility] En[facility] [id number] 11/16 [facility] Encounter [id number] 11/18 [facility] Encounter [id number] 11/29 [facility] Out[facility] Encounter [id number] 12/13 [facility] MTMS BY PHARM ADDL 15 MIN [id number] Diagnos is: ICD-10- CM 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
MADAI HOPKINS 12/14 [facility] En[facility] [id number] 02/10 [facility] Encounter [id number] 02/10 [facility] Out[facility] Encounter [id number] [facility] OFFICE O/P EST LOW 20 MIN [id number] Diagnos is: ICD-10- CM I11.9 Hyperte nsive heart disease without heart failure
APOORVA MORENO 02/18 [facility] En[facility] [id number] [facility] Encounter [id number] [facility] Out[facility] Encounter [id number] [facility] [place] SELF CARE MNGMENT TRAINING [id number] Diagnos is: ICD-10- CM M47.896 Other spondyl osis, lumbar region< br/> ALEXANDRA SKELTON 05/05 [facility] [place] [place] SELF CARE MNGMENT TRAINING [id number] Diagnos is: ICD-10- CM M47.896 Other spondyl osis, lumbar region< br/> ALEXANDRA SKELTON LU 05/20 [facility] [place] THERAPEUTI C EXERCISES [id number] Diagnos is: ICD-10- CM M47.896 Other spondyl osis, lumbar region< br/> ALEXANDRA SKELTON LU 06/10 [facility] [place] Outpatient Encounter [id number] 06/14 [facility] [place] [place] [facility] [place] SELF CARE MNGMENT TRAINING [id number] Diagnos is: ICD-10- CM M47.896 Other spondyl osis, lumbar region< br/> ALEXANDRA SKELTON LU 06/16 [facility] [place] Outpatient Encounter [id number] 06/17 [facility] [place] [facility] [place] OFFICE O/P EST LOW 20 MIN [id number] Diagnos is: ICD-10- CM M47.26 Other spondyl osis with radicul opathy, lumbar region< br/> Lauren PEREIRA 06/21 [facility] [place] [place] [facility] OFFICE O/P EST LOW 20 MIN [id number] Diagnos is: ICD-10- CM I11.9 Hyperte nsive heart disease without heart failure
APOORVA MORENO 06/21 [facility] [place] [place] [facility] OFF/OP EST MAY X REQ PHY/QHP [id number] Diagnos is: ICD-10- CM I11.9 Hyperte nsive heart disease without heart failure
Cipriano GONZALES 07/19 [facility] Social History Combined list of available smoking, tobacco, and other social history from Department of Defense and Veterans Affairs facilities. Social History Type Response Date Comment Source Tobacco smoking status [facility] VA-TOBACCO FORMER USER 11/17/2023 [facility] History of tobacco use DE-TOBACCO QUIT 15 YRS OR MORE 11/17/2023 [facility] History of tobacco use DE-TOBACCO FORMER USER 10/30/2022 [facility] History of tobacco use DE-TOBACCO FORMER USER 07/31/2021 [facility] History of tobacco use DE-TOBACCO QUIT 15 YRS OR MORE 02/10/2019 [facility] History of tobacco use QUIT TOBACCO USE > 7 YEARS AGO 11/27/2017 [facility] History of tobacco use QUIT TOBACCO USE > 7 YEARS AGO 11/05/2016 [facility] History of tobacco use QUIT TOBACCO USE > 7 YEARS AGO 09/17/2015 stopped 20 years ago [facility] History of tobacco use HISTORY OF SMOKING 02/24/2005 [facility] History of tobacco use QUIT TOBACCO USE > 7 YEARS AGO 05/28/2004 [facility] History of tobacco use HISTORY OF SMOKING 11/27/2003 [facility] History of tobacco use QUIT TOBACCO USE 1-7 YEARS AGO 03/15/2003 [facility] History of tobacco use HISTORY OF SMOKING 08/24/2002 [facility] History of tobacco use QUIT TOBACCO USE 1-7 YEARS AGO 02/11/2002 [facility] History of tobacco use HISTORY OF SMOKING 05/21/2001 quit 5 years ago [facility] Plan of Care List of future care activities from Department of [facility] facilities. Additional future care activities may be listed in the Assessment and Plan section. Date/Time Care Activity Care Activity Detail Facili ty 08/12/2024 [facility]UL[facility] - [facility] 08/12/2024 AMBULAT[facility] - [facility] 08/12/2024 [facility]ULAT[facility] - [facility] 10/20/2024 AMBULATORY - MEDICINE [facility]AT[facility]
[2024-08-11 09:49] VITALS: BP 141/79; PULSE 70; O2SAT 98
--- NOTE | 2024-08-11 09:49 | A.OFFVIS_ITS ---
Vital Signs 08/11/24 09:49 08/11/24 10:19 BP 141/79 H 141/82 H Blood Pressure Location Lt brachial Lt brachial Position Sitting Sitting Pulse 70 73 Pulse Source Pulse Oximeter Pulse Oximeter Pulse Oximetry (%) 98 96 Oxygen Delivery Method Room Air Room Air Intake Visit Reasons: Right L5-S1 TFESI Allergies sulfamethoxazole [From Bactrim] Allergy (Verified 07/29/24 08:31) Mouth sores, Stomach pains trimethoprim [From Bactrim] Allergy (Verified 07/29/24 08:31) Mouth sores, Stomach pains Sulfa (Sulfonamide Antibiotics) Adverse Reaction (Intermediate, Verified 07/29/24 08:31) MOUTH SORES, RASH HPI HPI Right L5-S1 TFESI: Details: Patient presents for scheduled procedure. Denies any recent cough, cold, infection, fever or other significant changes in medical history since last office visit. [facility] Medical History (Updated 08/11/24 @ 10:53 by Luis Guerrero MD) HTN (hypertension) BPH (benign prostatic hyperplasia) Encounter to establish care Erectile dysfunction due to arterial insufficiency Fracture, thoracic vertebra, compression Lumbar degenerative disc disease Essential hypertension Ascending aortic aneurysm Annual physical exam Normal colonoscopy Prostate CA Allergic rhinitis Polycythemia Hyperlipidemia Hearing problem Insomnia Hypogonadism male Osteoporosis Surgical History Hx of transurethral resection of prostate Hx of cystoscopy History of esophagogastroduodenoscopy (EGD) Hx of appendectomy History of repair of hiatal hernia Hx of hernia repair History of colon resection Hx of nasal septoplasty Hx of colonoscopy Family History Father Alzheimer disease Colon cancer Colon polyps Mother No problems noted. Other Mental health disorder Social History Housing: House Alcohol intake: current Alcohol intake frequency: holidays/special occasions only Patient Tobacco Use Status: Former Tobacco user e-Cigarette/Vaping Use: Never Used Second Hand Smoke Exposure: No service: Yes Current occupational status: employed and retired Current occupational exposures/hazards: No Cognitive needs: No Hearing needs: Yes Vision needs: No Physical Exam Vital Signs: Last Vital Signs Pulse 73 08/11/24 10:19 BP 141/82 H 08/11/24 10:19 Pulse Ox 96 08/11/24 10:19 Oxygen Delivery Method Room Air 08/11/24 10:19 Office Procedures Details: Transforaminal epidural steroid injection, Right L5/S1 After obtaining written consent, pre-procedure blood pressure and heart rate were stable and recorded in the nursing record. The patient was placed in the prone position on the fluoroscopy table. The lumbosacral area was prepped with chloraprep, allowed to dry and draped in sterile fashion. Using fluoroscopy, the skin overlying our target was anesthetized with 0.5% lidocaine. A 22 gauge 3.5 inch spinal needle was advanced to the safe triangle in the upper pole of the right L5 foramen. No paresthesias were elicited with needle placement and aspiration was negative for blood and CSF. Correct needle position was confirmed with approximately 1 ml contrast dye (Omnipaque 180 mg/ml) injected under real-time fluoroscopy. No evidence of vascular or intrathecal uptake was seen and there was both epidural and peripheral spread of the contrast agent. 10 mg dexamethasone plus 1 ml containing 0.5% lidocaine was slowly injected. The needle was flushed and removed. the same procedure was repeated for the remaining levels. The skin was cleansed and a sterile bandages were applied. The patient tolerated the procedure well and no complications were encountered. Following the procedure the patient's vital signs were stable. The patient was discharged home in good condition with post-procedural instructions. Time Out: Immediately prior to the procedure, the following was verbally confirmed that there is a signed consent form and that the correct patient, planned procedure, site and side are consistent with documentation and that necessary equipment and/or blood products are available prior to the start of the case. Complications: none EBL: <5 cc 86870 - Lumbar/Sacral Procedure code (CPT) selection complete Assessment & Plan Assessment & Plan (1) Lumbar radiculopathy: Code(s): M54.16 - Radiculopathy, lumbar region Category: Medical Plan Patient is status post right L5/S1 TFESI. Patient tolerated procedure well and was discharged home in stable condition with discharge instructions. All questions were answered. We will follow-up via telephone or in clinic to assess response to therapy. A follow-up appointment was made during today's visit. Orders: Orders 2 FL guidance in treatment room Today G89.29 - Other chronic pain, M54.41 - Lumbago with sciatica, right side Coding Level of Care Code Procedure Only Diagnoses Lumbar radiculopathy M54.16 CPT Codes Transforaminal Epidural Steroid Inj - TESI 3: 09809 - Lumbar/Sacral ([id number])
[2024-08-11 10:19] VITALS: BP 141/82; PULSE 73; O2SAT 96
== END 2024-08-11 10:19 | disposition home or self-care (01) ==
PROVIDERS: PCP Internal Medicine; Visit Provider Internal Medicine
DX: M54.16 Radiculopathy, lumbar region (principal)
CPT/HCPCS: 64483

== ENCOUNTER 2024-09-07 09:34 | Outpatient (AMB) | payer MEDICARE, SELFPAY ==
--- NOTE | 2024-09-07 09:40 | MHC.OFFVIS ---
Vital Signs 09/07/24 09:42 Height 5 ft 9 in Weight 190 lb BMI 28.1 BP 156/86 H Blood Pressure Location Lt brachial Position Sitting Respiration 16 Pulse 71 Pulse Source Pulse Oximeter Pulse Oximetry (%) 97 Oxygen Delivery Method Room Air Intake Visit Reasons: s/p right L5-S1 TFESI Allergies sulfamethoxazole [From Bactrim] Allergy (Verified 09/07/24 09:43) Mouth sores, Stomach pains trimethoprim [From Bactrim] Allergy (Verified 09/07/24 09:43) Mouth sores, Stomach pains Sulfa (Sulfonamide Antibiotics) Adverse Reaction (Intermediate, Verified 09/07/24 09:43) MOUTH SORES, RASH Medication List - Last Reconciled 09/07/24 by Aurelia Wu LPN amlodipine 10 mg PO DAILY atorvastatin 20 mg PO BEDTIME carvedilol (Coreg) 6.25 mg PO BID 90 days cholecalciferol (vitamin D3) 2,000 units PO DAILY 30 days docusate sodium (Colace) 100 mg PO BID PRN multivitamin 1 tab PO DAILY naproxen 500 mg PO BID PRN 7 days testosterone 1 packet transdermal DAILY 30 days zolpidem (Ambien) 10 mg PO BEDTIME PRN HPI HPI s/p right L5-S1 TFESI: Details: History of Present Illness The patient is a 78-year-old male presenting with chronic thoracic pain and chronic lumbar pain with sciatica. The lumbar pain has been persistent and radiates to the right leg, previously targeted by a right L5-S1 transforaminal epidural steroid injection, providing initial relief but not lasting benefit. The patient reports that the sharpness and sciatic distribution of the lumbar pain returned after initial treatment. Thoracic pain, described as persistent and located around the left T10-T12 vertebrae, remains unchanged. Pain is intensified by sitting for extended periods but alleviated by standing or walking. The patient also reports a new onset of sharp pain emerging when in sedentary positions. Currently, the patient's activity and everyday function are being impacted, especially at night, though mobility is less affected when standing. Previous attempts to initiate nerve stimulation therapy through insurance have been delayed mainly due to administrative hurdles. Pain Description - Onset/Timing: Persistent, ongoing thoracic and lumbar pain. - Quality/Character: Sharp pain in the sciatic area; bruise-like sensation in the lumbar region. - Primary Location: Left T10-T12 thoracic area and right lumbar region. - Radiation: Lumbar pain radiates to the right leg. - Exacerbating Factors: Prolonged sitting, couch lying positions at night. - Relieving Factors: Standing and walking. - Interference with Activities: Sitting and lying positions cause increased pain and difficulty maintaining comfort. Pain Management - Affect: Pain impacts the patient's mood, described as frustrating. - Analgesia: Previous transforaminal injection provided temporary relief. - Adverse Effects: None noted. - Activities of Daily Living: Pain interferes with prolonged sitting and lying comfort. - Aberrant Drug Related Behaviors: None mentioned. [facility] Medical History (Updated 09/20/24 @ 10:15 by Luis Guerrero MD) HTN (hypertension) BPH (benign prostatic hyperplasia) Encounter to establish care Erectile dysfunction due to arterial insufficiency Fracture, thoracic vertebra, compression Lumbar degenerative disc disease Essential hypertension Ascending aortic aneurysm Annual physical exam Normal colonoscopy Prostate CA Allergic rhinitis Polycythemia Hyperlipidemia Hearing problem Insomnia Hypogonadism male Osteoporosis Surgical History Hx of transurethral resection of prostate Hx of cystoscopy History of esophagogastroduodenoscopy (EGD) Hx of appendectomy History of repair of hiatal hernia Hx of hernia repair History of colon resection Hx of nasal septoplasty Hx of colonoscopy Family History Father Alzheimer disease Colon cancer Colon polyps Mother No problems noted. Other Mental health disorder Social History Housing: House Alcohol intake: current Alcohol intake frequency: holidays/special occasions only Patient Tobacco Use Status: Former Tobacco user e-Cigarette/Vaping Use: Never Used Second Hand Smoke Exposure: No service: Yes Current occupational status: employed and retired Current occupational exposures/hazards: No Cognitive needs: No Hearing needs: Yes Vision needs: No Physical Exam Vital Signs: Last Vital Signs Pulse 71 09/07/24 09:42 Resp 16 09/07/24 09:42 BP 156/86 H 09/07/24 09:42 Pulse Ox 97 09/07/24 09:42 Oxygen Delivery Method Room Air 09/07/24 09:42 BMI result Body Mass Index 28.1 Assessment & Plan Assessment & Plan (1) Lumbar radiculopathy: Code(s): M54.16 - Radiculopathy, lumbar region Category: Medical (2) Lumbar spondylosis: Code(s): M47.816 - Spondylosis without myelopathy or radiculopathy, lumbar region Category: Medical (3) Vertebrogenic low back pain: Code(s): M54.51 - Vertebrogenic low back pain Category: Medical (4) Thoracic back pain: Code(s): M54.6 - Pain in thoracic spine Category: Medical Qualifiers: Chronicity: chronic Back pain laterality: unspecified Qualified Code(s): M54.6 - Pain in thoracic spine; G89.29 - Other chronic pain Plan Plan - Proceed with requesting authorization for temporary nerve stimulation therapy targeting left thoracic T12 medial branch nerve and right lumbar L3 medial branch nerve. - Attempt to utilize previous psychological clearance for approval if possible. - Plan to move forward with the procedure before insurance coverage changes on October 15. Patient was informed and verbally consented to the use of an ambient scribe for clinic note documentation during this visit. Discussion Notes I discussed with the patient the continued presence of significant thoracic and lumbar pain. We reviewed the history of previous interventions, including steroid injections that had not resulted in lasting relief. We talked about the prospective nerve stimulation therapy, explaining the targeted areas and expected outcomes. I informed the patient that authorization would require an updated psychological assessment due to the lapse in time since the last assessment over a year ago. The patient was advised of insurance considerations, with an emphasis on the urgency of proceeding before potential discontinuation of coverage from [facility] as of October 15. The patient agreed with the plan and expressed interest in trying the nerve stimulation therapy. Patient Instructions - Await contact for scheduling of nerve stimulation therapy pending insurance approval. - Maintain current activity as tolerated, avoiding prolonged sitting to minimize pain exacerbation. - Follow up promptly if there are significant changes in symptoms or if pain becomes unmanageable. - Keep insurance information up to date and notify us if there are any changes. - Reach out if there are questions or additional issues with pain management in the interim. Coding Level of Care Code Est Pt Level 4 (22740) Diagnoses Lumbar radiculopathy M54.16 Lumbar spondylosis M47.816 Vertebrogenic low back pain M54.51 Chronic thoracic back pain, unspecified back pain laterality M54.6; G89.29 Chronicity: chronic Back pain laterality: unspecified
[2024-09-07 09:42] VITALS: BP 156/86; PULSE 71; RESP 16; O2SAT 97; BMI 28.1
== END 2024-09-07 10:14 | disposition home or self-care (01) ==
PROVIDERS: PCP Internal Medicine; Visit Provider Internal Medicine
DX: M54.16 Radiculopathy, lumbar region (principal); M47.816 Spondylosis without myelopathy or radiculopathy, lumbar region; M54.51 Vertebrogenic low back pain; M54.6 Pain in thoracic spine; G89.29 Other chronic pain
CPT/HCPCS: 99214

== ENCOUNTER → 2024-09-07 09:34 | Outpatient (BNVA) | payer MEDICARE, SELFPAY | PROVIDERS: PCP Internal Medicine; Visit Provider Internal Medicine | DX: M54.51 Vertebrogenic low back pain (principal); M54.6 Pain in thoracic spine; G89.29 Other chronic pain; M47.26 Other spondylosis with radiculopathy, lumbar region | CPT/HCPCS: 99212 ==

== ENCOUNTER 2024-09-23 09:36 | Outpatient (REF) | payer MEDICARE, SELFPAY ==
--- OUTSIDE RECORDS SUMMARY | 2024-09-23 10:16 | XMS_ITS ---
Author Organization [facility] Address [address] [place] [address] Care Team Providers Care Fiscal Accounting Clerk Name Role Phone ZaidajocelynCesilia Landry Primary Care Provider Unav ailable Renato Joseph Unavailable [phone] RESULTS Component Value Reference Range Notes GI PANEL Reviewed date:05/03/2023 11:59:29 AM Interpretation: Performing Lab:[facility], [address] [place] [id number] Notes/Report: Campylobacter Not Detected Not Detect. Plesiomonas [...] is performed by Multiplexed PCR, utilizing the Unruly Array. REASON FOR VISIT c-diff PROBLEMS Problem Type ICD Code Onset Dates Problem Status W/U Status Risk SNOMED Code Notes Problem Diarrhea, unspecified type (R19.7) Active confirmed [id number] Encounters Encounter Location Date Provider Diagnosis [facility] [address] [place] [address] 04/30/2023 Renato Joseph Diarrhea, unspecifie d type R19.7 ASSESSMENTS Encounter Date Diagnosis Assessment Notes Treatment Notes Treatment Clinical Notes 04/30/2023 Diarrhea, unspecified type (ICD-10 - R19.7) PLAN OF TREATMENT Pending Test Test Name Order Date STOOL WBC 04/30/2023 C DIFFICILE RFLX PCR 04/30/2023
--- OUTSIDE RECORDS SUMMARY | 2024-09-23 10:16 | XMS_ITS ---
Author Name [facility] [facility] [place] Address [address] [place] [address] Care Team Providers Care Windows Server Specialist Name Role Phone APOORVA MORENO Primary Care [...] Hare's Name Patient's Relationship to Policy Hare [facility] ([facility]) MEDICARE ADVANTAGE MCR ([facility]) Apr 17, 2013 [id number] [phone] Lauren COELHO PATIENT [facility] ([facility]) MEDICARE ADVANTAGE MCR ([facility]) Apr 17, 2013 [id number] [phone] Lauren COELHO PATIENT Selected Encounter This section includes the information on record at [place] for the Encounter. 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 Date/Time Primary/Secondary Diagnosis Diagnosis Name Provider Source Aug 17, 2024 01:54 PM PRIMARY Low-tension glaucoma, left eye, mild stage PURNIMA ESTRADA [facility] Plan of Treatment: Future Appointments (+ 6 months) and Future Tests (+/- 45 days) The Plan of Treatment section includes future care activities for the patient from all [place] treatmentfacilities. This section includes future appointments and future orders which are active, pending or scheduled. Future Appointments This section includes appointments that were scheduled to occur 6 months from the date of the Encounter, up to a maximum of 20 appointments. The data comes from all [place] treatment facilities. Appointment Date/Time Appointment Type Appointme nt Facility Name Oct 20, 2024 11:30 AM AMBULATORY - MEDICINE [facility] Vital Signs: All taken on the encounter date This section contains inpatient and outpatient Vital Signs collected on the date of the Encounter. Date/Time Temperature Pulse Blood Pressure Respiratory Rate SP02 Pain Height Weight Body Mass Index Source Aug 12, 2024 10:12 AM 138[facility] Aug 12, 2024 10:12 AM 67 142/90 [facility] Social History: Smoking Status (Most current) and [...] place. Date/Time Current Smoking Status Comment [facility] it Nov 17, 2023 11:30 AM VA-TOBACCO FORMER USER [facility] Tobacco Use History This section includes a history of the smoking, or tobacco-related health factors, that were collected on or before the date of the Encounter. The data comes from the [place] facility where the Encounter took place. Date/Time Smoking Status/Tobac co Use Comment Facility Nov 17, 2023 11:30 AM [place]-TOBACCO QUIT 15 YRS OR MORE [facility] Oct 30, 2022 03:20 PM VA-TOBACCO FORMER USER [facility] [place] [facility] Oct 30, 2022 03:20 PM VA-TOBACCO QUIT 15 YRS OR MORE [facility] [place] [facility] Jul 31, 2021 09:41 AM VA-TOBACCO FORMER USER [facility] [place] [facility] Jul 31, 2021 09:41 AM VA-TOBACCO QUIT 15 YRS OR MORE [facility] [place] [facility] Jun 29, 2020 11:00 AM VA-TOBACCO FORMER USER [facility] [place] [facility] Jun 29, 2020 11:00 AM VA-TOBACCO QUIT 15 YRS OR MORE [facility] [place] [facility] Feb 10, 2019 10:14 AM VA-TOBACCO FORMER USER [facility] [place] [facility] Feb 10, 2019 10:14 AM VA-TOBACCO QUIT 15 YRS OR MORE [facility] [place] [facility] Nov 27, 2017 11:12 AM QUIT TOBACCO USE > 7 YEARS AGO [facility] [place] [facility] Nov 05, 2016 11:01 AM QUIT TOBACCO USE > 7 YEARS AGO [facility] [place] [facility] Sep 17, 2015 01:03 PM QUIT TOBACCO USE > 7 YEARS AGO stopped 20 years ago [facility] [place] [facility] Feb 24, 2005 10:09 AM HISTORY OF SMOKING [facility] [place] [facility] May 28, 2004 08:08 AM QUIT TOBACCO USE > 7 YEARS AGO [facility] [place] [facility] Nov 27, 2003 01:12 PM HISTORY OF SMOKING [facility] [place] [facility] Mar 15, 2003 02:03 PM QUIT TOBACCO USE 1-7 YEARS AGO [facility] [place] [facility] Aug 24, 2002 11:07 AM HISTORY OF SMOKING [facility] [place] [facility] Feb 11, 2002 11:35 AM QUIT TOBACCO USE 1-7 YEARS AGO [facility] [place] [facility] May 21, 2001 01:11 PM HISTORY OF SMOKING quit 5 years ago [facility] [place] [facility] Encounter Notes: All associated encounter notes This section contains the clinical notes associated to the Encounter. Date/Time Encounter Note(s) Provider Source Aug 12, 2024 09:30 AM OPTOMETRY CONSULT: LOCAL TITLE: CONSULT REPORT/OPTOMETRY/SEAN (T) STANDARD TITLE: OPTOMETRY CONSULT DATE OF NOTE: AUG 12, 2024@09:30 ENTRY DATE: AUG 12, 2024@09:30:57 AUTHOR: PURNIMA ESTRADA EXP COSIGNER: URGENCY: STATUS: COMPLETED Active Problems: Active Problem Thoracic aortic aneurysm without ru 06/14/2024 APOORVA MORENO Exposure to potentially hazardous s 10/14/2023 ANALY SOW A History of implantation of penile p 11/07/2022 [...] Medications (including Supplies): Active Outpatient Medications Status ===== = 1) ALBUTEROL 90MCG (CFC-F) 200D ORAL INHL INHALE 1 PUFF BY ACTIVE MOUTH TWICE DAILY NEEDED Indication: FOR BRONCHOSPASM PREVENTION 2) AMLODIPINE BESYLATE 10MG TAB TAKE ONE TABLET BY MOUTH ONCE ACTIVE DAILY FOR BLOOD PRESSURE/HEART, DO NOT TAKE WITH GRAPEFRUIT JUICE Indication: FOR HIGH BLOOD PRESSURE 3) ATORVASTATIN CALCIUM 40MG TAB TAKE ONE-HALF TABLET BY MOUTH ACTIVE (S) ONCE DAILY FOR CHOLESTEROL REPLACES SIMVASTATIN. Indication: FOR HIGH CHOLESTEROL 4) CARVEDILOL 12.5MG TAB TAKE ONE TABLET BY MOUTH TWICE DAILY ACTIVE Indication: FOR HIGH BLOOD PRESSURE 5) LATANOPROST 0.005% OPH SOLN INSTILL 1 DROP INTO THE LEFT EYE ACTIVE AT BEDTIME TO REDUCE PRESSURE IN THE EYE 6) TESTOSTERONE (EQV-ANDROGEL) 1% 5GM GEL APPLY 1 PACKET ACTIVE TOPICALLY ONCE DAILY TO SHOULDER. RUB IN UNTIL DRY, THEN WASH HANDS WITH SOAP AND WATER 7) ZOLPIDEM TARTRATE 10MG TAB TAKE ONE TABLET BY MOUTH AT ACTIVE BEDTIME Indication: FOR SLEEP Active Non-VA Medications Status ===== = 1) Non-VA ASPIRIN 81MG EC TAB 81MG BY MOUTH DAILY ACTIVE 8 Total Medications Active Medications (non-VA prescribed): Allergies: SULFONAMIDE/RELATED ANTIMICROBIALS, AUGMENTIN S: Patient with mild low-tension glaucoma OS and low risk low-tension glaucoma suspect OD is in for repeat threshold cohen. O: Miranda fast 242 choen were run by phone technician. A: OD field is normal with low test reliability with fixation losses and OS field exhibits stable inferior nasal step. Patient remains mild low-tension glaucoma patient OS. P: Follow-up as scheduled for after imaging. /rajesh/ PURNIMA ESTRADA OD STAFF FINANCIAL COMPLIANCE OFFICER Signed: 08/17/2024 13:45 PURNIMA ESTRADA [facility]
--- OUTSIDE RECORDS SUMMARY | 2024-09-23 10:16 | XMS_ITS ---
Author Name [facility] [facility] [place] [facility] [place] Address [address] [place] [address] Care Team Providers Care Lacing Cutter Name Role Phone ANUPAM LEE Primary Care [...] [place] M[place] (WNR) MEDICARE ADVANTAGE MCR ([facility]) Apr 17, 2013 [id number] Lauren COELHO PATIENT [facility] ([facility]) MEDICARE ADVANTAGE MCR ([facility]) Apr 17, 2013 [id number] [phone] Lauren COELHO PATIENT Selected Encounter This section includes the information on record at [place] for the Encounter. Date/Time Encounter Type Encounter Description Reason Provider Source Aug 12, 2024 10:00 AM OFF/OP EST DECEMBER X REQ PHY/QHP PRIMARY CARE/MEDICINE ICD-10-CM I11.9 Hypertensive heart disease without heart failure YOVANY GONZALES [facility] Encounter Template Text not used by [place] Assessments - Encounter Diagnoses This section includes the primary and secondary diagnoses documented for the Encounter. Date/Time Primary/Secondary Diagnosis Diagnosis Name Provider Source Aug 12, 2024 10:16 AM PRIMARY Hypertensive heart disease without heart failure YOVANY GONZALES [facility] Plan of Treatment: Future Appointments (+ 6 months) and Future Tests (+/- 45 days) The Plan of Treatment section includes future care activities for the patient from all [place] treatmentf[facility]. This section includes future appointments and [...] 20, 2024 11:30 AM AMBULATORY - MEDICINE [facility] Vital Signs: All taken on the encounter date This section contains inpatient and outpatient Vital Signs collected on the date of the Encounter. Date/Time Temperature Pulse Blood Pressure Respiratory Rate SP02 Pain Height Weight Body Mass Index Source Aug 12, 2024 10:12 AM 138/[facility] Aug 12, 2024 10:12 AM 67 142/90 [facility] Social History: Smoking Status (Most current) [...] Facil it Nov 17, 2023 11:30 AM [place]-TOBACCO FORMER USER [facility] Tobacco Use History This section includes a history of the smoking, or tobacco-related health factors, that were collected on or before the date of the Encounter. The data comes from the [place] facility where the Encounter took place. Date/Time Smoking Status/Tobac co Use Comment Facility Nov 17, 2023 11:30 AM [place]-TOBACCO QUIT 15 YRS OR MORE [facility] [place] [facility] Oct 30, 2022 03:20 PM VA-TOBACCO FORMER USER [facility] [place] [facility] Oct 30, 2022 03:20 PM VA-TOBACCO QUIT 15 YRS OR MORE [facility] [place] [facility] Jul 31, 2021 09:41 AM VA-TOBACCO FORMER USER [facility] [place] [facility] Jul 31, 2021 09:41 AM VA-TOBACCO QUIT 15 YRS OR MORE [facility] [place] [facility] Jun 29, 2020 11:00 AM VA-TOBACCO FORMER USER [facility] [place] [facility] Jun 29, 2020 11:00 AM VA-TOBACCO QUIT 15 YRS OR MORE [facility] [place] [facility] Feb 10, 2019 10:14 AM VA-TOBACCO FORMER USER [facility] [place] [facility] Feb 10, 2019 10:14 AM VA-TOBACCO QUIT 15 YRS OR MORE [facility] [place] [facility] Nov 27, 2017 11:12 AM QUIT TOBACCO USE > 7 YEARS AGO [facility] [place] [facility] Nov 05, 2016 11:01 AM QUIT TOBACCO USE > 7 YEARS AGO [facility] [place] [facility] Sep 17, 2015 01:03 PM QUIT TOBACCO USE > 7 YEARS AGO stopped 20 years ago [facility] [place] [facility] Feb 24, 2005 10:09 AM HISTORY OF SMOKING [facility] [place] [facility] May 28, 2004 08:08 AM QUIT TOBACCO USE > 7 YEARS AGO [facility] [place] [facility] Nov 27, 2003 01:12 PM HISTORY OF SMOKING [facility] [place] [facility] Mar 15, 2003 02:03 PM QUIT TOBACCO USE 1-7 YEARS AGO [facility] [place] [facility] Aug 24, 2002 11:07 AM HISTORY OF SMOKING [facility] [place] [facility] Feb 11, 2002 11:35 AM QUIT TOBACCO USE 1-7 YEARS AGO [facility] [place] [facility] May 21, 2001 01:11 PM HISTORY OF SMOKING quit 5 years ago [facility] [place] [facility] Encounter Notes: All associated encounter notes This section contains the clinical notes associated to the Encounter. Date/Time Encounter Note(s) Provider Source Aug 12, 2024 10:54 AM ADDENDUM: LOCAL TITLE: Addendum STANDARD TITLE: ADDENDUM DATE OF NOTE: AUG 12, 2024@10:54:29 ENTRY DATE: AUG 12, 2024@10:54:29 AUTHOR: ANUPAM LEE EXP COSIGNER: URGENCY: STATUS: COMPLETED Please ask him to dose carvedilol once daily for a week, then stop. Monitor BP. Does nausea and fever go away? Call if bp goes over 150/94. /rajesh/ Anupam Lee PA-C STAFF PHYSICIAN NEEDLE CONTROL CHENILLER Signed: 08/12/2024 10:55 Receipt Acknowledged By: 08/12/2024 13:12 /rajesh/ YOLY GONZALES RN REGISTERED NURSE ========= --- Original Document --- 08/12/24 AMBULATORY/OUTPATIENT CARE NOTE: Blood pressure check: F: [facility] D: [place] here for blood pressure check per PCP Anupam Lee. Vet has history of hypertension. Presently he is taking this medication for elevated B/P: AMLODIPINE BESYLATE TAB 10MG TAKE ONE TABLET BY MOUTH ONCE DAILY CARVEDILOL TAB 12.5MG TAKE ONE TABLET BY MOUTH TWICE DAILY has been taking Carvedilol 12.5mg BID but this is making him feel nausea and a feeling of low grade fever . He has stuck with this dose despite SE, hoping it would get better with time. Home BP 141/79. [place] had cortisone shot in left lumbar area yesterday. A: B/P today is 138/82 in his left arm and 142/90 in his right arm (manual cuff used with arm elevated at heart level) Pulse is 67. Will review results with pcp. R: [place] tolerated well and left area ab devin. /rajesh/ YOLY GONZALES RN REGISTERED NURSE Signed: 08/12/2024 10:16 Receipt Acknowledged By: 08/12/2024 10:56 /yenny Lee PA-C STAFF PHYSICIAN NEEDLE CONTROL CHENILLER 08/12/2024 ADDENDUM STATUS: UNSIGNED You may not VIEW this UNSIGNED Addendum. ANUPAM LEE [place] [facility] [place] [facility] Aug 12, 2024 10:02 AM [facility]: LOCAL TITLE: AMBULATORY/OUTPATIENT CARE NOTE STANDARD TITLE: PRIMARY CARE OUTPATIENT NOTE DATE OF NOTE: AUG 12, 2024@10:02 ENTRY DATE: AUG 12, 2024@10:02:54 AUTHOR: YOLY GONZALES EXP COSIGNER: URGENCY: STATUS: COMPLETED AMBULATORY/OUTPATIENT CARE NOTE Has ADDENDA Blood pressure check: F: Nursing [facility] D: [place] here for blood pressure check per PCP Anupam Lee. Vet has history of hypertension. Presently he is taking this medication for elevated B/P: AMLODIPINE BESYLATE TAB 10MG TAKE ONE TABLET BY MOUTH ONCE DAILY CARVEDILOL TAB 12.5MG TAKE ONE TABLET BY MOUTH TWICE DAILY has been taking Carvedilol 12.5mg BID but this is making him feel nausea and a feeling of low grade fever . He has stuck with this dose despite SE, hoping it would get better with time. Home BP 141/79. [place] had cortisone shot in left lumbar area yesterday. A: B/P today is 138/82 in his left arm and 142/90 in his right arm (manual cuff used with arm elevated at heart level) Pulse is 67. Will review results with pcp. R: [place] tolerated well and left area ab devin. /rajesh/ YOLY GONZALES RN REGISTERED NURSE Signed: 08/12/2024 10:16 Receipt Acknowledged By: 08/12/2024 10:56 /rajesh/ Anupam Lee PA-C STAFF PHYSICIAN NEEDLE CONTROL CHENILLER 08/12/2024 ADDENDUM STATUS: COMPLETED Please ask him to dose carvedilol once daily for a week, then stop. Monitor BP. Does nausea and fever go away? Call if bp goes over 150/94. /yenny Lee PA-C STAFF PHYSICIAN NEEDLE CONTROL CHENILLER Signed: 08/12/2024 10:55 Receipt Acknowledged By: 08/12/2024 13:12 /rajesh/ YOLY GONZALES RN REGISTERED NURSE 08/12/2024 ADDENDUM STATUS: COMPLETED Spoke to [place] and relayed message per provider. [place] understood and agreed to plan. /rajesh/ YOLY GONZALES RN REGISTERED NURSE Signed: 08/12/2024 13:12 [facility] GONZALES [place] [facility]
--- OUTSIDE RECORDS SUMMARY | 2024-09-23 10:17 | XMS_ITS ---
Author Name [facility] [place] [facility] [place] Address [address] [place] [address] Care Team Providers Care Medical Billing Supervisor Name Role Phone APOORVA MORENO Primary [...] [place] M[place] (WNR) MEDICARE ADVANTAGE MCR ([facility]) Apr 17, 2013 [id number] Lauren COELHO PATIENT [facility] ([facility]) MEDICARE ADVANTAGE MCR ([facility]) Apr 17, 2013 [id number] [phone] Lauren COELHO PATIENT Selected Encounter This section includes the information on record at [place] for the Encounter. 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 Date/Time Primary/Secondary Diagnosis Diagnosis Name Provider Source Aug 17, 2024 01:54 PM PRIMARY Low-tension glaucoma, left eye, mild stage [facility] Plan of Treatment: Future Appointments (+ 6 months) and Future Tests (+/- 45 days) The Plan of Treatment section includes future care activities for the patient from all [place] treatmentfacilities. This section includes future appointments and [...] 20, 2024 11:30 AM AMBULATORY - MEDICINE [facility] Vital Signs: All taken on the encounter date This section contains inpatient and outpatient Vital Signs collected on the date of the Encounter. Date/Time Temperature Pulse Blood Pressure Respiratory Rate SP02 Pain Height Weight Body Mass Index Source Aug 12, 2024 10:12 AM 138/[facility] Aug 12, 2024 10:12 AM 67 142/90 [facility] Social History: Smoking Status (Most current) and Tobacco Use (All prior to encounter date) This section includes the most current, and the historical, smoking and tobacco- related health factors from the [place] facility where the Encounter took place. Current Smoking Status This section includes the most current smoking, or tobacco-related health factor, from the [place] facility where the Encounter took place. Date/Time Current Smoking Status Comment [facility] Nov 17, 2023 11:30 AM [place]-TOBACCO [facility] Tobacco Use History This section includes a history of the smoking, or tobacco-related health factors, that were collected on or before the date of the Encounter. The data comes from the [place] facility where the Encounter took place. Date/Time Smoking Status/Tobac co Use Comment Facility Nov 17, 2023 11:30 AM [place]-TOBACCO QUIT 15 YRS OR MORE [facility] Oct 30, 2022 03:20 PM VA-TOBACCO FORMER USER [facility] [place] [facility] Oct 30, 2022 03:20 PM VA-TOBACCO QUIT 15 YRS OR MORE [facility] [place] [facility] Jul 31, 2021 09:41 AM VA-TOBACCO FORMER USER [facility] [place] [facility] Jul 31, 2021 09:41 AM VA-TOBACCO QUIT 15 YRS OR MORE [facility] [place] [facility] Jun 29, 2020 11:00 AM VA-TOBACCO FORMER USER [facility] [place] [facility] Jun 29, 2020 11:00 AM VA-TOBACCO QUIT 15 YRS OR MORE [facility] [place] [facility] Feb 10, 2019 10:14 AM VA-TOBACCO FORMER USER [facility] [place] [facility] Feb 10, 2019 10:14 AM VA-TOBACCO QUIT 15 YRS OR MORE [facility] [place] [facility] Nov 27, 2017 11:12 AM QUIT TOBACCO USE > 7 YEARS AGO [facility] [place] [facility] Nov 05, 2016 11:01 AM QUIT TOBACCO USE > 7 YEARS AGO [facility] [place] [facility] Sep 17, 2015 01:03 PM QUIT TOBACCO USE > 7 YEARS AGO stopped 20 years ago [facility] [place] [facility] Feb 24, 2005 10:09 AM HISTORY OF SMOKING [facility] [place] [facility] May 28, 2004 08:08 AM QUIT TOBACCO USE > 7 YEARS AGO [facility] [place] [facility] Nov 27, 2003 01:12 PM HISTORY OF SMOKING [facility] [place] [facility] Mar 15, 2003 02:03 PM QUIT TOBACCO USE 1-7 YEARS AGO [facility] [place] [facility] Aug 24, 2002 11:07 AM HISTORY OF SMOKING [facility] [place] [facility] Feb 11, 2002 11:35 AM QUIT TOBACCO USE 1-7 YEARS AGO [facility] [place] [facility] May 21, 2001 01:11 PM HISTORY OF SMOKING quit 5 years ago [facility] [place] [facility] Encounter Notes: All associated encounter notes This section contains the clinical notes associated to the Encounter. Date/Time Encounter Note(s) Provider Source Aug 12, 2024 09:31 AM OPTOMETRY CONSULT: LOCAL TITLE: CONSULT REPORT/OPTOMETRY/SEAN( T) STANDARD TITLE: OPTOMETRY CONSULT DATE OF NOTE: AUG 12, 2024@09:31 ENTRY DATE: AUG 12, 2024@09:31:26 AUTHOR: PURNIMA ESTRADA EXP COSIGNER: URGENCY: STATUS: [...] Medications (including Supplies): Active Outpatient Medications Status == = 1) ALBUTEROL 90MCG (CFC-F) 200D ORAL [...] Indication: FOR SLEEP Active Non-VA Medications Status == = 1) Non-VA ASPIRIN 81MG EC TAB 81MG BY MOUTH DAILY ACTIVE 8 Total Medications Active Medications (non-VA prescribed): Allergies: SULFONAMIDE/RELATED ANTIMICROBIALS, AUGMENTIN S: Patient with low-tension glaucoma OS is in for repeat OCT. O: Neuroretinal rim and nerve fiber layer thickness OCT was run by engine test cell technician. A: Results are remaining reasonably stable from prior scans with OS showing small notch superior temporal in correspondence with inferior nasal step OS and OD remaining stable. History of low-tension glaucoma OS P: Follow-up as scheduled after imaging. /rajesh/ PURNIMA ESTRADA OD STAFF TUB PULLER Signed: 08/17/2024 13:47 PURNIMA ESTRADA [facility]
--- OUTSIDE RECORDS SUMMARY | 2024-09-23 10:17 | XMS_ITS | Continuity of Care Document ---
Author Name [facility] Organization [facility] Care Team Providers Care Front Office Clerk Name Role Phone [facility] Unavailable Unavailable Problems Combined list of problems [...] [facility] Benign essential hypertension (SNOMED CT 1844237) Active Condition [facility] Bloating (ICD-9-CM 787.3) Active Condition [facility] CALCULUS OF KIDNEY Active Condition [facility] [...] Entered By: RADHA MORENO Comment: Colectomy @ [facility] about 2004.Aug 22, 2010 Entered By: RADHA MORENO Comment: His father had colon cancer. [facility] Exposure to potentially hazardous substance Active Condition Oct 14, 2023 Entered By: ANALY SOW Comment: Connect Snomed Code to ICD 10 Code refer to note dated 07/20/23 [facility] former smoker Active Condition [facility] [...] TUR 10/2101 Dr Stephens at [facility]. [facility] Hypogonadism Active Condition [facility] Impaired FASTING Glucose (ICD-9-CM 790.21) Active Condition [facility] Insomnia * (ICD-9-CM 780.52) Active Condition [facility] Sciatica Active Condition [facility] Thoracic aortic aneurysm without rupture Active Condition Jun 14, 2024 Entered By: RADHA MORENO Comment: Followed by [facility]. [facility] Tinnitus * (ICD-9-CM 388.30) Active Condition [facility] TINNITUS NOS Active Condition [facility] H. Pylori therapy 1997 Inactive Condition 07/11/2013 [facility] Hiatal Hernia Inactive Condition 01/13/2012 December 162011 Entered By: RADHA MORENO Comment: lap surgery about 2005 was curative. 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, left eye, mild stage Active Diagnosis [facility] Diagnosis: ICD-10-CM M47.26 Other spondylosis with radiculopathy, lumbar region Active Diagnosis [facility] MARYEfren [facility]ES [facility] Diagnosis: ICD-10-CM M47.896 Other spondylosis, lumbar region Active Diagnosis [place] Diagnosis: ICD-10-CM 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 [facility] MARYEfren YANES [facility] Medications Combined list of outpatient [...] ON RESPIR ATORY (INHAL ATION) ACTIVE 11/17/2024 [id number] APOORVA MORENO 2023 1 [facility] AMLODIPINE BESYLATE 10MG TAB TAKE ONE TABLET BY MOUTH ONCE DAILY FOR BLOOD PRESSURE /HEART, DO NOT TAKE WITH GRAPEFRU IT JUICE ORAL ACTIVE 06/22/2025 [id number] 5 APOORVA MORENO 2023 90 [facility] [place] [facility] AMLODIPINE BESYLATE 10MG TAB TAKE ONE TABLET BY MOUTH ONCE DAILY FOR BLOOD PRESSURE /HEART, DO NOT TAKE WITH GRAPEFRU IT JUICE ORAL DISCONT INUED (EDIT) 02/19/2025 [id number] 4 APOORVA MORENO 2023 30 [facility] [place] AMLODIPINE BESYLATE 10MG TAB TAKE ONE TABLET BY MOUTH ONCE DAILY FOR BLOOD PRESSURE /HEART, DO NOT TAKE WITH GRAPEFRU IT JUICE ORAL DISCONT INUED (EDIT) 07/20/2024 [id number] 4 APOORVA MORENO 2022 30 [facility] [place] AMLODIPINE BESYLATE 2.5MG TAB TAKE THREE TABLETS BY MOUTH ONCE DAILY FOR BLOOD PRESSURE /HEART, DO NOT TAKE WITH GRAPEFRU IT JUICE ORAL DISCONT INUED (EDIT) 11/17/2024 [id number] 4 APOORVA MORENO 2023 90 [facility] [place] ASPIRIN 81MG TAB,EC TAKE ONE TABLET BY MOUTH DAILY ORAL ACTIVE APOORVA MORENO 2013 [facility] [place] ATORVASTATI N CA 40MG TAB TAKE ONE-HALF TABLET BY MOUTH ONCE DAILY FOR CHOLESTE ROL REPLACES SIMVASTA TIN. ORAL ACTIVE 02/19/2025 [id number] 5 APOORVA MORENO 2023 45 [facility] [place] ATORVASTATI N CA 40MG TAB TAKE ONE-HALF TABLET BY MOUTH ONCE DAILY FOR CHOLESTE ROL REPLACES SIMVASTA TIN. ORAL DISCONT INUED 07/20/2024 [id number] 4 APOORVA MORENO 2022 45 [facility] [place] CARBOXYMETH YLCELLULOSE NA 0.5% SOLN,OPH INSTILL 1 DROP INTO EACH EYE FOUR TIMES DAILY NEEDED FOR DRY EYE OPHTHA LMIC ACTIVE 08/13/2025 [id number] 4 Samaria ESTRADA 2023 15 [facility] CARVEDILOL 12.5MG TAB TAKE ONE TABLET BY MOUTH TWICE DAILY FOR HIGH BLOOD PRESSURE ORAL ACTIVE 06/22/2025 [id number] 4 APOORVA MORENO 2023 180 [facility] [place] DICLOFENAC NA 1% GEL,TOP APPLY 4 GRAMS TOPICALL Y THREE TIMES DAILY NEEDED FOR OSTEOART HRITIS - USE DOSING CARD PROVIDED IN BOX TOPICA L 01/14/2024 [id number] 4 RAOUL HOPKINS 2023 300 [facility] [place] LATANOPROST 0.005% SOLN,OPH INSTILL 1 DROP INTO THE LEFT EYE AT BEDTIME TO REDUCE PRESSURE IN THE EYE OPHTHA LMIC ACTIVE 05/05/2025 [id number] 4 Samaria ESTRADA NDREW E 2023 7.5 [facility] [place] LATANOPROST 0.005% SOLN,OPH INSTILL 1 DROP INTO THE LEFT EYE AT BEDTIME TO REDUCE PRESSURE IN THE EYE OPHTHA LMIC DISCONT INUED 02/14/2024 [id number] 4 Samaria ESTRADA NDREW E 2022 5 [facility] [place] TESTOSTERON E (EQV-ANDROG EL) 1% 5GM/PKT GEL,TOP APPLY 1 PACKET TOPICALL Y ONCE DAILY TO SHOULDER . RUB IN UNTIL DRY, THEN WASH HANDS WITH SOAP AND WATER TOPICA L ACTIVE 12/22/2024 [id number] APOORVA MORENO 2023 30 [facility] [place] TESTOSTERON E (EQV-ANDROG EL) 1% 5GM/PKT GEL,TOP APPLY 1 PACKET TOPICALL Y ONCE DAILY TO SHOULDER . RUB IN UNTIL DRY, THEN WASH HANDS WITH SOAP AND WATER TOPICA L DISCONT INUED 03/20/2024 [id number] 4 SUSI ALBERTO MD 2023 30 [facility] TESTOSTERON E (EQV-ANDROG EL) 1% 5GM/PKT GEL,TOP APPLY 1 PACKET TOPICALL Y ONCE DAILY TO SHOULDER . RUB IN UNTIL DRY, THEN WASH HANDS WITH SOAP AND WATER TOPICA L 08/28/2023 [id number] SUSI ALBERTO MD 2022 30 [place] ZOLPIDEM TARTRATE 10MG TAB TAKE ONE TABLET BY MOUTH AT BEDTIME FOR SLEEP ORAL ACTIVE 11/05/2024 [id number] 5 APOORVA MORENO 2023 30 [place] ZOLPIDEM TARTRATE 10MG TAB TAKE ONE TABLET BY MOUTH AT BEDTIME NEEDED FOR SLEEP ORAL DISCONT INUED 11/11/2023 [id number] 4 APOORVA MORENO 2022 30 [facility] [place] [facility] ZOLPIDEM TARTRATE 10MG TAB TAKE ONE TABLET BY MOUTH AT BEDTIME FOR SLEEP ORAL 04/22/2024 [id number] 4 APOORVA MORENO 2023 30 [facility] [place] [facility] Allergies, Adverse Reactions, Alerts Combined list of allergies from Department of Defense and Veterans Affairs facilities. It does not include entries that were removed or entered in error. Substance Category Reaction Severity Reaction type Status Date Reported Comments Source AUGMENTIN Propensity to adverse reactions to drug (finding) Abdominal pain active 1 [facility] [place] [facility] SULFONAMIDE/ RELATED ANTIMICROBIA LS Propensity to adverse reactions to drug (finding) HIVES active 8 [facility] [place] [facility] Immunizations Combined list of available immunizations from the Department of Defense and Veterans Affairs facilities. Immunization Series Date Given Administered By Site Reaction Lot Number CVX Code Drug Yarding Engineer Status Comments Source COVID-19 (MODERNA), MRNA, LNP-S, PF, 50 MCG/0.5 ML (AGES 12+ YEARS) 2023 CLARA JULIO LEFT DELTO ID [id number] 312 complet ed [facility] [place] [facility] INFLUENZA, HIGH-DOSE, TRIVALENT, PF 2023 CLARA JULIO LEFT DELTO ID [id number] 135 complet ed [facility] [place] [facility] INFLUENZA, HIGH-DOSE, QUADRIVALENT 2022 CHARLY CARY HY E LEFT DELTO ID [id number] 197 complet ed [facility] [place] [facility] COVID-19 (MODERNA), MRNA, LNP-S, PF, 50 MCG/0.5 ML (AGES 12+ YEARS) 4 2022 LEFT DELTO ID 312 complet ed [employer] Lot#: [id number] Mfr: [employer] [facility] INFLUENZA VACCINE, QUADRIVALENT, ADJUVANTED 2021 205 complet ed [facility] COVID-19 (MODERNA), MRNA, LNP-S, PF, 100 MCG/0.5ML DOSE OR 50 MCG/0.25ML DOSE 3 2020 207 complet ed [facility] COVID-19 (MODERNA), MRNA, LNP-S, PF, 100 [...] TD(ADULT) UNSPECIFIED FORMULATION 2014 139 complet ed [facility] ED. Probably TD. after a dogbite. Our [...] Jun 08, 2024 11:04 AM Reporting Lab: [facility] [place] [facility] [address] [address] Performing Lab: [facility] [place] [facility] [address] [address] [facility] [place] [facility] LIPID PANEL FASTING TRIGLYCERID E [MASS/VOLUM E] IN SERUM OR PLASMA 71 mg/dL 0 - 150 06/14 Specimen Type: SERUM No comment entered. Ordering Provider: Jimena MORENO Report Released Date/Time: Jun 08, 2024 11:04 AM Reporting Lab: [facility] [place] [facility] [address] [address] Performing Lab: [facility] [place] [facility] [address] [address] [place] [facility] [place] [facility] LIPID PANEL FASTING CHOLESTEROL IN LDL [MASS/VOLUM E] IN SERUM OR PLASMA BY CALCULATION 95 mg/dL 0 - 129 06/14 Specimen Type: SERUM No comment entered. Ordering Provider: Jimena MORENO Report Released Date/Time: Jun 08, 2024 11:04 AM Reporting Lab: [facility] [place] [facility] [address] [address] Performing Lab: [facility] [place] [facility] [address] [facility] [address] [facility] [place] [facility] LIPID PANEL FASTING CHOLESTEROL .TOTAL/CHOL ESTEROL IN HDL [MASS RATIO] IN SERUM OR PLASMA 2.9 06/14 Specimen Type: SERUM No comment entered. Ordering Provider: Jimena MORENO Report Released Date/Time: Jun 08, 2024 11:04 AM Reporting Lab: [facility] [place] [facility] [address] [facility] [address] Performing Lab: [facility] [place] [facility] [address] [address] [facility] [place] [facility] LIPID PANEL FASTING CHOLESTEROL IN HDL [MASS/VOLUM E] IN SERUM OR PLASMA 57 mg/dL 40 - 60 06/14 Specimen Type: SERUM No comment entered. Ordering Provider: Jimena MORENO Report Released Date/Time: Jun 08, 2024 11:04 AM Reporting Lab: [facility] [place] [facility] [address] [address] Performing Lab: [facility] [place] [facility] [address] [address] [facility] [place] [facility] LIVER FUNCTION PROTEIN [MASS/VOLUM E] IN SERUM OR PLASMA 6.8 g/dL 6.0 - 8.3 06/14 Specimen Type: SERUM No comment entered. Ordering Provider: Jimena MORENO Report Released Date/Time: Jun 08, 2024 11:04 AM Reporting Lab: [facility] [place] [facility] [address] [address] Performing Lab: [facility] [place] [facility] [address] [address] [facility] [place] [facility] LIVER FUNCTION ALBUMIN [MASS/VOLUM E] IN SERUM OR PLASMA 4.0 g/dL 3.5 - 5.0 06/14 Specimen Type: SERUM No comment entered. Ordering Provider: Jimena MORENO Report Released Date/Time: Jun 08, 2024 11:04 AM Reporting Lab: [facility] [place] [facility] [address] [address] Performing Lab: [facility] [place] [facility] [address] [address] [facility] [place] [facility] LIVER FUNCTION ALKALINE PHOSPHATASE [ENZYMATIC ACTIVITY/VO LUME] IN SERUM OR PLASMA 63 U/L 40 - 150 06/14 Specimen Type: SERUM No comment entered. Ordering Provider: Jimena MORENO Report Released Date/Time: Jun 08, 2024 11:04 AM Reporting Lab: [facility] [place] [facility] [address] [address] Performing Lab: [facility] [place] [facility] [address] [address] [facility] [place] [facility] LIVER FUNCTION ASPARTATE AMINOTRANSF ERASE [ENZYMATIC ACTIVITY/VO LUME] IN SERUM OR PLASMA 18 U/L 5 - 34 06/14 Specimen Type: SERUM No comment entered. Ordering Provider: Jimena MORENO Report Released Date/Time: Jun 08, 2024 11:04 AM Reporting Lab: [facility] [place] [facility] [address] [address] Performing Lab: [facility] [place] [facility] [address] [address] [facility] [place] [facility] LIVER FUNCTION ALANINE AMINOTRANSF ERASE [ENZYMATIC ACTIVITY/VO LUME] IN SERUM OR PLASMA 30 U/L 06/14 Specimen Type: SERUM No comment entered. Ordering Provider: Jimena MORENO Report Released Date/Time: Jun 08, 2024 11:04 AM Reporting Lab: [facility] [place] [facility] [address] [address] Performing Lab: [facility] [place] [facility] [address] [address] [facility] [place] [facility] LIVER FUNCTION BILIRUBIN.T OTAL [MASS/VOLUM E] IN SERUM OR PLASMA 0.8 mg/dL 0.2 - 1.2 06/14 Specimen Type: SERUM No comment entered. Ordering Provider: Jimena MORENO Report Released Date/Time: Jun 08, 2024 11:04 AM Reporting Lab: [facility] [place] [facility] [address] [address] Performing Lab: [facility] [place] [facility] [address] [address] [facility] [place] [facility] BASIC METABOLIC PANEL (fasting) UREA NITROGEN [MASS/VOLUM E] IN SERUM OR PLASMA 21 mg/dL 7 - 25 06/14 Specimen Type: SERUM No comment entered. Ordering Provider: Jimena MORENO Report Released Date/Time: Jun 08, 2024 11:04 AM Reporting Lab: [facility] [place] [facility] [address] [address] Performing Lab: [facility] [place] [facility] [address] [address] [facility] [place] [facility] BASIC METABOLIC PANEL (fasting) GLUCOSE [MASS/VOLUM E] IN SERUM OR PLASMA 105 mg/dL 65 - 100 06/14 H Specimen Type: SERUM No comment entered. Ordering Provider: Jimena MORENO Report Released Date/Time: Jun 08, 2024 11:04 AM Reporting Lab: [facility] [place] [facility] [address] [address] Performing Lab: [facility] [place] [facility] [address] [address] [facility] [place] [facility] BASIC METABOLIC PANEL (fasting) SODIUM [MOLES/VOLU ME] IN SERUM OR PLASMA 138 mmol/L 135 - 145 06/14 Specimen Type: SERUM No comment entered. Ordering Provider: Jimena MORENO Report Released Date/Time: Jun 08, 2024 11:04 AM Reporting Lab: [facility] [address] [address] Performing Lab: [facility] [address] [address] [facility] BASIC METABOLIC PANEL (fasting) POTASSIUM [MOLES/VOLU ME] IN SERUM OR PLASMA 4.2 mmol/L 3.5 - 5.0 06/14 Specimen Type: SERUM No comment entered. Ordering Provider: Jimena MORENO Report Released Date/Time: Jun 08, 2024 11:04 AM Reporting Lab: [facility]N [facility] [address] Performing Lab: [facility] [address] [address] [facility] BASIC METABOLIC PANEL (fasting) CHLORIDE [MOLES/VOLU ME] IN SERUM OR PLASMA 107 mmol/L 100 - 110 06/14 Specimen Type: SERUM No comment entered. Ordering Provider: Jimena MORENO Report Released Date/Time: Jun 08, 2024 11:04 AM Reporting Lab: [facility] [place] [address] [address] Performing Lab: [facility] [address] [address] [facility] BASIC METABOLIC PANEL (fasting) CARBON DIOXIDE, TOTAL [MOLES/VOLU ME] IN SERUM OR PLASMA 22 meq/L 20 - 30 06/14 Specimen Type: SERUM No comment entered. Ordering Provider: Jimena MORENO Report Released Date/Time: Jun 08, 2024 11:04 AM Reporting Lab: [facility] [place] [address] Performing Lab: [facility] [place] [facility] [address] [address] [facility] [place] [facility] BASIC METABOLIC PANEL (fasting) CREATININE [MASS/VOLUM E] IN SERUM OR PLASMA 0.74 mg/dL 0.50 - 1.40 06/14 Specimen Type: SERUM No comment entered. Ordering Provider: Jimena MORENO Report Released Date/Time: Jun 08, 2024 11:04 AM Reporting Lab: [facility] [place] [facility] [address] [facility] [address] Performing Lab: [facility] [place] [facility] [address] [address] [facility] [place] [facility] BASIC METABOLIC PANEL (fasting) GLOMERULAR FILTRATION RATE/1.73 SQ M.PREDICTED [VOLUME RATE/AREA] IN SERUM, PLASMA OR BLOOD BY CREATININE- BASED FORMULA (CKD-EPI 2020) >90mL/ min 60 06/14 Specimen Type: SERUM No comment entered. Ordering Provider: Jimena MORENO Report Released Date/Time: Jun 08, 2024 11:04 AM Reporting Lab: [facility] [address] [address] Performing Lab: [facility] [address] [address] [facility] PSA PROSTATE SPECIFIC AG [MASS/VOLUM E] IN SERUM OR PLASMA 0.14 ng/mL 0.00 - 4.00 02/15 Specimen Type: SERUM No comment entered. Ordering Provider: Jimena MORENO Report Released Date/Time: Nov 17, 2023 11:49 AM Reporting Lab: [facility] [place] [facility] [address] [address] Performing Lab: [facility] [address] [address] [facility] BASIC METABOLIC PANEL (fasting) UREA NITROGEN [MASS/VOLUM E] IN SERUM OR PLASMA 18 mg/dL 7 - 25 02/15 Specimen Type: SERUM No comment entered. Ordering Provider: Jimena MORENO Report Released Date/Time: Nov 17, 2023 11:49 AM Reporting Lab: [facility] [place] [facility] [address] [facility] [address] Performing Lab: [facility] [place] [facility] [address] [address] [facility] [place] [facility] BASIC METABOLIC PANEL (fasting) GLUCOSE [MASS/VOLUM E] IN SERUM OR PLASMA 94 mg/dL 65 - 100 02/15 Specimen Type: SERUM No comment entered. Ordering Provider: Jimena MORENO Report Released Date/Time: Nov 17, 2023 11:49 AM Reporting Lab: [facility] [place] [facility] [address] [address] Performing Lab: [place] [facility] [place] [address] [address] [facility] [place] [facility] BASIC METABOLIC PANEL (fasting) SODIUM [MOLES/VOLU ME] IN SERUM OR PLASMA 141 mmol/L 135 - 145 02/15 Specimen Type: SERUM No comment entered. Ordering Provider: Jimena MORENO Report Released Date/Time: Nov 17, 2023 11:49 AM Reporting Lab: [facility] [place] [facility] [address] [address] Performing Lab: [facility] [place] [facility] [address] [address] [facility] [place] [facility] BASIC METABOLIC PANEL (fasting) POTASSIUM [MOLES/VOLU ME] IN SERUM OR PLASMA 4.1 mmol/L 3.5 - 5.0 02/15 Specimen Type: SERUM No comment entered. Ordering Provider: Jimena MORENO Report Released Date/Time: Nov 17, 2023 11:49 AM Reporting Lab: [facility] [place] [facility] [address] [facility] [facility] [address] Performing Lab: [facility] [place] [facility] [address] [address] [facility] BASIC METABOLIC PANEL (fasting) CHLORIDE [MOLES/VOLU ME] IN SERUM OR PLASMA 109 mmol/L 100 - 110 02/15 Specimen Type: SERUM No comment entered. Ordering Provider: Jimena MORENO Report Released Date/Time: Nov 17, 2023 11:49 AM Reporting Lab: [facility] [place] [address] Performing Lab: [facility] [address] [facility]ITALR[facility]IN[facility]ITALN [facility] BASIC METABOLIC PANEL (fasting) CARBON DIOXIDE, TOTAL [MOLES/VOLU ME] IN SERUM OR PLASMA 24 meq/L 20 - 30 02/15 Specimen Type: SERUM No comment entered. Ordering Provider: Jimena MORENO Report Released Date/Time: Nov 17, 2023 11:49 AM Reporting Lab: [facility] TRN [place] [address] Performing Lab: [facility] [address] [facility] BASIC METABOLIC PANEL (fasting) CREATININE [MASS/VOLUM E] IN SERUM OR PLASMA 0.77 mg/dL 0.50 - 1.40 02/15 Specimen Type: SERUM No comment entered. Ordering Provider: Jimena MORENO Report Released Date/Time: Nov 17, 2023 11:49 AM Reporting Lab: [facility] [place] [address] [address] Performing Lab: [facility] [place] [address] [facility] BASIC METABOLIC PANEL (fasting) GLOMERULAR FILTRATION RATE/1.73 SQ M.PREDICTED [VOLUME RATE/AREA] IN SERUM, PLASMA OR BLOOD BY CREATININE- BASED FORMULA (CKD-EPI 2020) >90mL/ min 60 02/15 Specimen Type: SERUM No comment entered. Ordering Provider: Jimena MORENO Report Released Date/Time: Nov 17, 2023 11:49 AM Reporting Lab: [facility] [place] [facility] [address] [id number] Performing Lab: [facility] [place] [facility] [address] [address] [facility] [place] [facility] LIVER FUNCTION PROTEIN [MASS/VOLUM E] IN SERUM OR PLASMA 6.8 g/dL 6.0 - 8.3 02/15 Specimen Type: SERUM No comment entered. Ordering Provider: Jimena MORENO Report Released Date/Time: Nov 17, 2023 11:49 AM Reporting Lab: [facility] [place] [facility] [address] [phone] Performing Lab: [facility] [place] [facility] [address] [address] [facility] [place] [facility] LIVER FUNCTION ALBUMIN [MASS/VOLUM E] IN SERUM OR PLASMA 4.2 g/dL 3.5 - 5.0 02/15 Specimen Type: SERUM No comment entered. Ordering Provider: Jimena MORENO Report Released Date/Time: Nov 17, 2023 11:49 AM Reporting Lab: [facility] [place] [facility] [address] [facility] [address] Performing Lab: [facility] [place] [facility] [address] [facility] [address] [facility] [place] [facility] LIVER FUNCTION ALKALINE PHOSPHATASE [ENZYMATIC ACTIVITY/VO LUME] IN SERUM OR PLASMA 63 U/L 40 - 150 02/15 Specimen Type: SERUM No comment entered. Ordering Provider: Jimena MORENO Report Released Date/Time: Nov 17, 2023 11:49 AM Reporting Lab: [facility] [place] [facility] [address] [facility] [address] Performing Lab: [facility] [place] [facility] [address] [facility] [address] [facility] [place] [facility] LIVER FUNCTION ASPARTATE AMINOTRANSF ERASE [ENZYMATIC ACTIVITY/VO LUME] IN SERUM OR PLASMA 25 U/L 5 - 34 02/15 Specimen Type: SERUM No comment entered. Ordering Provider: Jimena MORENO Report Released Date/Time: Nov 17, 2023 11:49 AM Reporting Lab: [facility] [place] [facility] [address] [facility] [address] Performing Lab: [facility] [place] [facility] [address] [facility] [address] [facility] [place] [facility] LIVER FUNCTION ALANINE AMINOTRANSF ERASE [ENZYMATIC ACTIVITY/VO LUME] IN SERUM OR PLASMA 24 U/L 02/15 Specimen Type: SERUM No comment entered. Ordering Provider: Jimena MORENO Report Released Date/Time: Nov 17, 2023 11:49 AM Reporting Lab: [facility] [place] [facility] [address] [facility] [address] Performing Lab: [facility] [place] [address] [address] [facility] [place] [facility] LIVER FUNCTION BILIRUBIN.T OTAL [MASS/VOLUM E] IN SERUM OR PLASMA 1.1 mg/dL 0.2 - 1.2 02/15 Specimen Type: SERUM No comment entered. Ordering Provider: Jimena MORENO Report Released Date/Time: Nov 17, 2023 11:49 AM Reporting Lab: [facility] [place] [facility] [address] [facility] [address] Performing Lab: [facility] [place] [facility] [address] [facility] [address] [facility] [place] [facility] LIPID PANEL FASTING CHOLESTEROL [MASS/VOLUM E] IN SERUM OR PLASMA 146 mg/dL 02/15 Specimen Type: SERUM No comment entered. Ordering Provider: Jimena MORENO Report Released Date/Time: Nov 17, 2023 11:49 AM Reporting Lab: [facility] [place] [facility] [address] [facility] [address] Performing Lab: [facility] [place] [facility] [address] [facility] [address] [facility] LIPID PANEL FASTING TRIGLYCERID E [MASS/VOLUM E] IN SERUM OR PLASMA 96 mg/dL 0 - 150 02/15 Specimen Type: SERUM No comment entered. Ordering Provider: Jimena MORENO Report Released Date/Time: Nov 17, 2023 11:49 AM Reporting Lab: [facility] [place] [facility] [address] [facility] [address] Performing Lab: [facility] [place] [facility] [address] [facility] [address] [facility] [facility] LIPID PANEL FASTING CHOLESTEROL IN LDL [MASS/VOLUM E] IN SERUM OR PLASMA BY CALCULATION 80 mg/dL 0 - 129 02/15 Specimen Type: SERUM No comment entered. Ordering Provider: Jimena MORENO Report Released Date/Time: Nov 17, 2023 11:49 AM Reporting Lab: [facility] [place] [address] [address] Performing Lab: [facility] [place] [address] [address] [facility] [place] [facility] LIPID PANEL FASTING CHOLESTEROL .TOTAL/CHOL ESTEROL IN HDL [MASS RATIO] IN SERUM OR PLASMA 3.1 02/15 Specimen Type: SERUM No comment entered. Ordering Provider: Jimena MORENO Report Released Date/Time: Nov 17, 2023 11:49 AM Reporting Lab: [facility] [place] [address] [address] Performing Lab: [facility] [place] [facility] [address] [facility] [address] [facility] LIPID PANEL FASTING CHOLESTEROL IN HDL [MASS/VOLUM E] IN SERUM OR PLASMA 47 mg/dL 40 - 60 02/15 Specimen Type: SERUM No comment entered. Ordering Provider: Jimena MORENO Report Released Date/Time: Nov 17, 2023 11:49 AM Reporting Lab: [facility] [place] [facility] [address] [facility] [address] Performing Lab: [facility] [place] [facility] [address] [facility] [address] [facility] TESTOSTER ONE, TOTAL TESTOSTERON E [MASS/VOLUM E] IN SERUM OR PLASMA 585.06 ng/dL 220.00 - 892.00 11/08 Specimen Type: SERUM No comment entered. Ordering Provider: Jimena MORENO Report Released Date/Time: Jul 20, 2023 03:40 PM Reporting Lab: [facility] [place] [facility] [address] [facility] [address] Performing Lab: [facility] [address] [address] [facility] LIVER FUNCTION PROTEIN [MASS/VOLUM E] IN SERUM OR PLASMA 6.4 g/dL 6.0 - 8.3 11/08 Specimen Type: SERUM No comment entered. Ordering Provider: Jimena MORENO Report Released Date/Time: Jul 20, 2023 03:40 PM Reporting Lab: [facility] [place] [facility] [address] [facility] [address] Performing Lab: [facility] [address] [facility] [address] [facility] LIVER FUNCTION ALBUMIN [MASS/VOLUM E] IN SERUM OR PLASMA 3.9 g/dL 3.5 - 5.0 11/08 Specimen Type: SERUM No comment entered. Ordering Provider: Jimena MORENO Report Released Date/Time: Jul 20, 2023 03:40 PM Reporting Lab: [facility] [place] [facility] [address] [facility] [address] Performing Lab: [facility] [address] [facility] [address] [facility] LIVER FUNCTION ALKALINE PHOSPHATASE [ENZYMATIC ACTIVITY/VO LUME] IN SERUM OR PLASMA 64 U/L 40 - 150 11/08 Specimen Type: SERUM No comment entered. Ordering Provider: Jimena MORENO Report Released Date/Time: Jul 20, 2023 03:40 PM Reporting Lab: [facility] [place] [facility] [address] [facility] [address] Performing Lab: [facility] [place] [facility] [address] [facility] [address] [facility] [place] [facility] LIVER FUNCTION ASPARTATE AMINOTRANSF ERASE [ENZYMATIC ACTIVITY/VO LUME] IN SERUM OR PLASMA 21 U/L 5 - 34 11/08 Specimen Type: SERUM No comment entered. Ordering Provider: Jimena MORENO Report Released Date/Time: Jul 20, 2023 03:40 PM Reporting Lab: [facility] [place] [facility] [address] [facility] [address] Performing Lab: [facility] [place] [facility] [address] [facility] [address] [facility] [place] [facility] LIVER FUNCTION ALANINE AMINOTRANSF ERASE [ENZYMATIC ACTIVITY/VO LUME] IN SERUM OR PLASMA 29 U/L 11/08 Specimen Type: SERUM No comment entered. Ordering Provider: Jimena MORENO Report Released Date/Time: Jul 20, 2023 03:40 PM Reporting Lab: [facility] [place] [facility] [address] [facility] [address] Performing Lab: [facility] [place] [address] [address] [facility] [place] [facility] LIVER FUNCTION BILIRUBIN.T OTAL [MASS/VOLUM E] IN SERUM OR PLASMA 0.6 mg/dL 0.2 - 1.2 11/08 Specimen Type: SERUM No comment entered. Ordering Provider: Jimena MORENO Report Released Date/Time: Jul 20, 2023 03:40 PM Reporting Lab: [facility] [place] [facility] [address] [facility] [address] Performing Lab: [facility] [place] [address] [address] [facility] [place] [facility] PSA PROSTATE SPECIFIC AG [MASS/VOLUM E] IN SERUM OR PLASMA 0.12 ng/mL 0.00 - 4.00 11/08 Specimen Type: SERUM No comment entered. Ordering Provider: Jimena MORENO Report Released Date/Time: Jul 20, 2023 03:40 PM Reporting Lab: [facility] [place] [facility] [address] [facility] [address] Performing Lab: [facility] [place] [facility] [address] [facility] [address] [facility] [place] [facility] Vital Signs Combined list of inpatient and outpatient Vital Signs from Department of Defense and Veterans Affairs, ranging from 12 months to all on record, depending upon the facility. Vital Sign Value Date Comments Source SYSTOLIC BLOOD PRESSURE 142 08/12/20 10:12:42 [facility] [place] [facility] DIASTOLIC BLOOD PRESSURE 90 024 10:12:42 [facility] [place] [facility] PULSE 67 08/12/2024 10:12:42 [facility] [place] [facility] SYSTOLIC BLOOD PRESSURE 140 07/19/20 10:16:26 [facility] [place] [facility] DIASTOLIC BLOOD PRESSURE 82 024 10:16:26 [facility] [place] [facility] PULSE 60 07/19/2024 10:16:26 [facility] [place] [facility] SYSTOLIC BLOOD PRESSURE 140 06/21/20 24 12:58:24 [facility] [place] [facility] DIASTOLIC BLOOD PRESSURE 70 024 12:58:24 [facility] [place] [facility] PAIN 5 06/21/2024 12:58:24 [facility] [place] [facility] SYSTOLIC BLOOD PRESSURE 161 02/19/20 24 10:47:22 [facility] [place] [facility] DIASTOLIC BLOOD PRESSURE 95 024 10:47:22 [facility] [place] [facility] PULSE OXIMETRY 97 02/19/2024 10:47:22 [facility] [place] [facility] WEIGHT 195 02/19/2024 10:47:22 [facility] [place] [facility] BMI 31 kg/m2 02/19/2024 10:47:22 [facility] [place] [facility] [...] 02/11/2024 13:55:42 [facility] [place] [facility] Encounters Combined list of: 1) Encounters from Department of Veterans Affairs facilities going backup to the last 18 months, not all VA inpatient encounters are included; 2) Encounters from the Department of Defense facilities going backup to 280 months. Location Location Details Encounter Type Encounter Number Reason For Visit Attending Provider ADM Date DC Date Status Disposition Source [facility] [place] Encounter [id number] 04/13 [facility] [place] Encounter [id number] 05/08 [facility] [place] [place] Out[facility] Encounter [id number] 05/11 [facility] [place] [place] Out[facility] Encounter [id number] 06/13 [facility] [place] [place] Encounter [id number] 06/13 [facility] [place] [place] Encounter [id number] 06/19 [facility] [place] [place] En[facility] [id number] 06/29 [facility] [place] OFFICE O/P EST LOW 20-29 MIN [id number] Diagnos is: ICD-10- CM I11.9 Hyperte nsive heart disease without heart failure APOORVA MORENO 07/20 [facility] [place] En[facility] [id number] 07/20 [facility] [place] [place] En[facility] [id number] 07/22 [facility] [place] [place] Encounter [id number] 08/05 [facility] [place] OFF/OP EST MAY X REQ PHY/QHP [id number] Diagnos is: ICD-10- CM I11.9 Hyperte nsive heart disease without heart failure Cipriano GONZALES 08/21 [facility] [place] Out[facility] Encounter [id number] 09/04 [facility] [place] [place] Encounter [id number] 09/18 [facility] [place] [place] Out[facility] Encounter [id number] 09/29 [facility] [place] [place] COMPRE OPH EXAM EST PT 1/> [id number] 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, left eye, mild stage BORASKI,AN BRANDYN E 10/02 [facility] [place] [place] EXTENDED VISUAL FIELD XM [id number] 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, left eye, mild stage BORASKI,AN BRANDYN E 10/02 [facility] [place] [place] CMPTR OPHTH IMG OPTIC NERVE [id number] 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, left eye, mild stage BORASKI,AN BRANDYN E 10/02 [facility] [place] [place] Out[facility] Encounter [id number] 10/20 [facility] [place] [place] En[facility] [id number] 10/28 [facility] [place] [place] Out[facility] Encounter [id number] 11/15 [facility] [place] [place] OFFICE O/P EST LOW 20 MIN [id number] Diagnos is: ICD-10- CM I11.9 Hyperte nsive heart disease without heart failure APOORVA MORENO 11/16 [facility] [place] [place] En[facility] [id number] 11/16 [facility] [place] [place] Out[facility] Encounter [id number] 11/18 [facility] [place] [place] Out[facility] Encounter [id number] 11/29 [facility] [place] [place] Out[facility] Encounter [id number] 12/13 [facility] [place] [facility] [place] MTMS BY PHARM ADDL 15 MIN [id number] Diagnos is: ICD-10- CM 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 MADAI HOPKINS 12/14 [facility] [place] Encounter [id number] 02/10 [facility] [place] [place] Out[facility] Encounter [id number] 02/10 [facility] [place] [facility] [place] Encounter [id number] 02/18 [facility] [place] [place] OFFICE O/P EST LOW 20 MIN [id number] Diagnos is: ICD-10- CM I11.9 Hyperte nsive heart disease without heart failure APOORVA MORENO 02/18 [facility] [place] [place] Out[facility] Encounter [id number] 03/02 [facility] [place] [facility] [facility] [place] [facility] Outpatient Encounter [id number] [facility] [place] [facility] [facility] [place] [facility] Outpatient Encounter [id number] 1.05/04 [facility] [place] [facility] [place] [facility] MNGMENT TRAINING [id number] Diagnos is: ICD-10- CM M47.896 Other spondyl osis, lumbar region ALEXANDRA SKELTON 05/05 [place] [facility] MNGMENT TRAINING [id number] Diagnos is: ICD-10- CM M47.896 Other spondyl osis, lumbar region ALEXANDRA SKELTON 05/20 [place] THERAPEUTI C EXERCISES [id number] Diagnos is: ICD-10- CM M47.896 Other spondyl osis, lumbar region ALEXANDRA SKELTON 06/10 [place] [facility] [place] [facility] Outpatient Encounter [id number] 06/14 [facility] [place] [facility] [place] [facility]F C[place] MNGMENT TRAINING [id number] Diagnos is: ICD-10- CM M47.896 Other spondyl osis, lumbar region ALEXANDRA KSELTON 06/16 [place] [facility] [place] [facility] Outpatient Encounter [id number] 06/17 [facility] [place] [facility] [facility] [place] [facility] OFFICE O/P EST LOW 20 MIN [id number] Diagnos is: ICD-10- CM M47.26 Other spondyl osis with radicul opathy, lumbar region Lauren PEREIRA 06/21 [facility] [place] [place] [facility] OFFICE O/P EST LOW 20 MIN [id number] 1. Diagnos is: ICD-10- CM I11.9 Hyperte nsive heart disease without heart failure APOORVA MORENO 06/21 [facility] [place] OFF/OP EST MAY X REQ PHY/QHP [id number] 1. Diagnos is: ICD-10- CM I11.9 Hyperte nsive heart disease without heart failure Cipriano GONZALES 07/19 [facility] [place] [facility] [place] [facility] EXTENDED VISUAL FIELD XM [id number] 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, left eye, mild stage BORASKI,AN BRANDYN E 08/12 [facility] [place] [place] [facility] CMPTR OPHTH IMG OPTIC NERVE [id number] 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, left eye, mild stage BORASKI,AN BRANDYN E 08/12 [facility] [place] [facility] [place] [facility] INTRM OPH EXAM EST PATIENT [id number] 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, left eye, mild stage BORASKI,AN BRANDYN E 08/12 [facility] [place] [facility] [facility] [place] OFF/OP EST MAY X REQ PHY/QHP [id number] Diagnos is: ICD-10- CM I11.9 Hyperte nsive heart disease without heart failure Cipriano GONZALES 08/12 [facility] [place] [facility] Social History Combined list of available smoking, tobacco, and other social history from Department of Defense and Veterans Affairs facilities. Social History Type Response Date Comment Source Tobacco smoking status NHIS VA-TOBACCO FORMER USER 11/17/2023 [facility] [place] [facility] History of tobacco use PR-TOBACCO QUIT 15 YRS OR MORE 11/17/2023 [facility] [place] [facility] History of tobacco use PR-TOBACCO FORMER USER 10/30/2022 [facility] [place] [facility] History of tobacco use PR-TOBACCO FORMER USER 07/31/2021 [facility] [place] [facility] History of tobacco use PR-TOBACCO FORMER USER 06/29/2020 [facility] [place] [facility] History of tobacco use PR-TOBACCO QUIT 15 YRS OR MORE 02/10/2019 [facility] [place] [facility] History of tobacco use QUIT TOBACCO USE > 7 YEARS AGO 11/27/2017 [facility] [place] [facility] History of tobacco use QUIT TOBACCO USE > 7 YEARS AGO 11/05/2016 [facility] [place] [facility] History of tobacco use QUIT TOBACCO USE > 7 YEARS AGO 09/17/2015 stopped 20 years ago [facility] [place] [facility] History of tobacco use HISTORY OF SMOKING 02/24/2005 [facility] [place] [facility] History of tobacco use QUIT TOBACCO USE > 7 YEARS AGO 05/28/2004 [facility] [place] [facility] History of tobacco use HISTORY OF SMOKING 11/27/2003 [facility] [place] [facility] History of tobacco use QUIT TOBACCO USE 1-7 YEARS AGO 03/15/2003 [facility] [place] [facility] History of tobacco use HISTORY OF SMOKING 08/24/2002 [facility] [place] [facility] History of tobacco use QUIT TOBACCO USE 1-7 YEARS AGO 02/11/2002 [facility] [place] [facility] History of tobacco use HISTORY OF SMOKING 05/21/2001 quit 5 years ago [facility] [place] [facility] Plan of Care List of future care activities from Department of Veterans Affairs facilities. Additional future care activities may be listed in the Assessment and Plan section. Date/Time Care Activity Care Activity Detail Facili ty 10/20/2024 AMBULATORY - MEDICINE [facility] 03/07/2025 AMBULATORY - MEDICINE [facility] - [facility]I [facility] [place] [facility] 10/19/2024 Laboratory - Home Health Caregiver ry Order [facility]/19[facility]2024 Laboratory - Home Health Caregiver ry Order LIPID PANEL FASTING BLOOD (SST-SERUM) [facility] 10/19/2024 Laboratory - Home Health Caregiver ry Order BASIC METABOLIC PANEL (fasting) BLOOD (SST-SERUM) [facility]
--- OUTSIDE RECORDS SUMMARY | 2024-09-23 10:17 | XMS_ITS | Clinical Summary ---
Author Organization [facility] Address [address] [place] [address] Care Team Providers Care Accounting Manager Assistant Controller Name Role Phone Ricardo Ulloa MD Primary Care Provider [phone] Social History Tobacco Use Types Packs/Day Years Used Date Smoking Tobacco: Never Assessed Sex and Gender Information Value Date Recorded Sex Assigned at Not on file Gender Identity Not on file Sexual Orientation Not on file Plan of Treatment Health Maintenance Due Date Last Done Comments Hepatitis C Virus Screening 1945 DTaP/Tdap/Td Vaccines (1 - Tdap) 11/25/1966 Pneumococcal Vaccines 50+ (1 of 1 - PCV) 11/25/1997 Zoster (Shingles) Vaccine (1 of 2) 11/25/1997 RSV Vaccine 60 years and old er and Patients (1 - 1-dose 75+ series) 11/25/2022 Influenza Vaccine 03/17/2024 COVID-19 Vaccine ( - 2023-2 5 season) 2024 Hepatitis B Vaccines Aged Out No long er eligible based on patient's age to complete this topic Care Teams Accounting Manager Assistant Controller Relationship Specialty Start Date End Date Ricardo Ulloa MD [address] [facility] [address] [place] [address] PCP - General 02/21/20
--- OUTSIDE RECORDS SUMMARY | 2024-09-23 10:17 | XMS_ITS | Encounter Summary ---
Author Name [facility] [place] Organization [facility] [place] [place] Address [address] [place] [address] Care Team Providers Care Malt Loader Name Role Phone APOORVA MORENO Primary Care [...] [place] M[place] ([place]) MEDICARE ADVANTAGE MCR ([facility]) Apr 17, 2013 [id number] [phone] Lauren COELHO PATIENT [facility] ([facility]) MEDICARE ADVANTAGE MCR ([facility]) Apr 17, 2013 [id number] [phone] Lauren COELHO PATIENT Selected Encounter This section includes the information on record at [place] for the Encounter. 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 Date/Time Primary/Secondary Diagnosis Diagnosis Name Provider Source Aug 17, 2024 01:53 PM PRIMARY Low-tension glaucoma, left eye, mild stage PURNIMA ESTRADA [facility] Aug 17, 2024 01:53 PM SECONDARY Combined forms of age-related cataract, bilateral PURNIMA ESTRADA [facility] Plan of Treatment: Future Appointments (+ 6 months) and Future Tests (+/- 45 days) The Plan of Treatment section includes future care activities for the patient from all [place] [facility]. This section includes future appointments and [...] 20, 2024 11:30 AM AMBULATORY - MEDICINE [facility] Vital Signs: All taken on the encounter date This section contains inpatient and outpatient Vital Signs collected on the date of the Encounter. Date/Time Temperature Pulse Blood Pressure Respiratory Rate SP02 Pain Height Weight Body Mass Index Source Aug 12, 2024 10:12 AM 138/82 [facility] Aug 12, 2024 10:12 AM 67 142/90 [facility] Social History: Smoking Status (Most current) [...] 17, 2023 11:30 AM VA-TOBACCO FORMER USER [facility] Tobacco Use History This section [...] MORE [facility] [place] Oct 30, 2022 03:20 PM VA-TOBACCO FORMER USER [facility] [place] [facility] Oct 30, 2022 03:20 PM VA-TOBACCO QUIT 15 YRS OR MORE [facility] [place] [facility] Jul 31, 2021 09:41 AM VA-TOBACCO FORMER USER [facility] [place] [facility] Jul 31, 2021 09:41 AM VA-TOBACCO QUIT 15 YRS OR MORE [facility] [place] [facility] Jun 29, 2020 11:00 AM VA-TOBACCO FORMER USER [facility] [place] [facility] Jun 29, 2020 11:00 AM VA-TOBACCO QUIT 15 YRS OR MORE [facility] [place] [facility] Feb 10, 2019 10:14 AM VA-TOBACCO FORMER USER [facility] [place] [facility] Feb 10, 2019 10:14 AM VA-TOBACCO QUIT 15 YRS OR MORE [facility] [place] [facility] Nov 27, 2017 11:12 AM QUIT TOBACCO USE > 7 YEARS AGO [facility] [place] [facility] Nov 05, 2016 11:01 AM QUIT TOBACCO USE > 7 YEARS AGO [facility] [place] [facility] Sep 17, 2015 01:03 PM QUIT TOBACCO USE > 7 YEARS AGO stopped 20 years ago [facility] [place] [facility] Feb 24, 2005 10:09 AM HISTORY OF SMOKING [facility] [place] [facility] May 28, 2004 08:08 AM QUIT TOBACCO USE > 7 YEARS AGO [facility] [place] [facility] Nov 27, 2003 01:12 PM HISTORY OF SMOKING [facility] [place] [facility] Mar 15, 2003 02:03 PM QUIT TOBACCO USE 1-7 YEARS AGO [facility] [place] [facility] Aug 24, 2002 11:07 AM HISTORY OF SMOKING [facility] [place] [facility] Feb 11, 2002 11:35 AM QUIT TOBACCO USE 1-7 YEARS AGO [facility] [place] [facility] May 21, 2001 01:11 PM HISTORY OF SMOKING quit 5 years ago [place] [facility] [place] [facility] Encounter Notes: All associated encounter notes This section contains the clinical notes associated to the Encounter. Date/Time Encounter Note(s) Provider Source Aug 12, 2024 09:29 AM OPTOMETRY NOTE: LOCAL TITLE: OPTOMETRY NOTE(T) STANDARD TITLE: OPTOMETRY NOTE DATE OF NOTE: AUG 12, 2024@09:29 ENTRY DATE: AUG 12, 2024@09:29:11 AUTHOR: PURNIMA ESTRADA EXP COSIGNER: URGENCY: STATUS: [...] PAIGE CAMACHO former smoker 799.9 02/11/2002 PAIGE CMAACHO Medications (VA): Active Outpatient Medications (including Supplies): Active Outpatient Medications Status === 1) ALBUTEROL 90MCG (CFC-F) 200D ORAL INHL [...] Indication: FOR SLEEP Active Non-VA Medications Status === 1) Non-VA ASPIRIN 81MG EC TAB 81MG BY MOUTH DAILY ACTIVE 8 Total Medications Allergies: SULFONAMIDE/RELATED ANTIMICROBIALS, AUGMENTIN S: 78-year-old is in for 10-month follow-up with a 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 He takes latanoprost nightly OS. He denies any eye injury or disease since his last exam. 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 SHAHRIAR: 10/02/2023 (-) Pain: (-) CRAMER: (-) Diplopia: (-) Flashes: (-) Floaters: (-) Amaurosis Fugax/Tia's: (-) Eye Injury: (-) Eye Surgery: (-) TBI O: Visual acuity without correction was 20/25 - OD and 20/25 - OS. Pupils were equal and round and [...] OU. Current Rx with last BCVA: OD: +1.25-1.13p692 VA: 20/20 OS: +1.25-1.08f280 VA: 20/20 Add: +2.50 Intraocular pressures at 9:45 AM were 13 mmHg OD and 10 mmHg OS T max: 22 mmHg OS from 10/15/2017 Pachymetry: 562 OD, 541 OS ====Fundi were reviewed with 90 diopter lens through nondilated pupils.===== Vitreous PVD was seen OU. Approximately 50% horizontal and vertical cupping was seen OD with healthy rims and margins and 75% horizontal and greater vertical cupping OS with superior temporal notch. Normal pigmentary architecture of the macula was seen with a two third artery to vein ratio. Retinal peripheries were not viewed. 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 Combined cataracts slightly visually significant OU P: Continue latanoprost OS nightly. Patient has refills. The patient will return in 6 months or sooner if any problems arise, including dilated fundus exam. [place] Education: After discussion and answering all 's [...] of active outpatient prescriptions dispensed from this [facility] (local) and dispensed from another VA or [facility]D facility (remote) as well as inpatient orders [...] non-VA provider. /rajesh/ PURNIMA ESTRADA OD STAFF JEWEL [employer] Signed: 08/17/2024 13:53 [facility]A ESTRADA [place] [facility]
--- OUTSIDE RECORDS SUMMARY | 2024-09-23 10:17 | XMS_ITS | Patient Health Record ---
Author Organization [facility] Address [address] [place] [address] Care Team Providers Care Bundle Clerk Name Role Phone Cesilia Anguiano Primary Care Provider Unav ailRenato Moss Unavailable [phone] ALLERGIES Allergen (clinical drug ingredient) Drug/Non Drug [...] malignant neoplasm of colon (Z12.11) Active confirmed 238846467 Problem History of adenomatous polyp of colon (Z86.010) Active confirmed 912387901 Problem Irritable bowel syndrome without diarrhea (K58.9) Active confirmed 96595536 Problem Diverticulosis (K57.90) Active confirmed 427667933 Problem Preprocedural examination (Z01.818) Active confirmed 359870894628414 Problem History of colon polyps (Z86.010) Active confirmed History of polyp of colon (861498008) Problem Family history of colon cancer (Z80.0) Active confirmed 600361943 Problem Change in bowel function (R19.4) Active confirmed 76514709 Problem Diarrhea, unspecified type (R19.7) Active confirmed 64390377 Problem Diverticulosis of colon (K57.30) Active confirmed Diverticulosi s of colon (471334546) Problem LLQ abdominal pain (R10.32) Active confirmed 299612264 PLAN OF TREATMENT Pending Test Test Name [...] Insured Coverage Start Date Coverage End Date [facility] [address] [place] [phone] [id number] HANH COELHO Self - patient is the insured MEDICAL (GENERAL) HISTORY Medical History History ICD Code HTN Denies SD,DM,CVA,renal disease Diverticulitis with surgery as below Hyperlipidemia BPH Neg colonoscopy with Dr. Nain taylor in 05/2012--previous polyps removed at the [facility] EGD's in [place] prior to the kenia ibeth CT in 05/2013 and 11/2015 fercho wed only diverticulosis and renal cysts--he has also had negative abdominal ultrasound and MRIs ? of [place]---sees Dr. Gallagher-had phleb otomy--presently inactive Prostate cancer--finished XRT in 09/2015 Pleural effusion on the left -2014--saw Dr. Worthy at [facility]--had CT scans and a thoracentesis--no [...]
[2024-09-23 14:19] LABS: Prostate Specific Antigen < 0.10 ng/mL (<0.05-4.0)
[2024-09-29 15:29] LABS: Testosterone, Total 323 ng/dL (250-1100)
== END 2024-09-23 09:37 | disposition home or self-care (01) ==
LOC: HO.HMGCLDS 09:36
PROVIDERS: PCP Internal Medicine; Visit Provider Urology
DX: E29.1 Testicular hypofunction (principal); Z12.5 Encounter for screening for malignant neoplasm of prostate
CPT/HCPCS: 36415; 84153; 84403

== ENCOUNTER 2024-10-07 10:55 | Outpatient (AMB) | payer MEDICARE, SELFPAY ==
--- NOTE | 2024-10-07 10:57 | MHC.OFFVIS ---
Intake Visit Reasons: 6m/PSA/Testo Intake Note: Pt presents to office today for a 6 month follow up/psa/testo Allergies sulfamethoxazole [From Bactrim] Allergy (Verified 10/14/24 11:29) Mouth sores, Stomach pains trimethoprim [From Bactrim] Allergy (Verified 10/14/24 11:29) Mouth sores, Stomach pains Sulfa (Sulfonamide Antibiotics) Adverse Reaction (Intermediate, Verified 10/14/24 11:29) MOUTH SORES, RASH HPI Comments Details: Ermias is a pleasant male. He is a patient of Dr. Navarro. He is seen for the following urologic conditions - prostate cancer - erectile dysfunction - hypogonadism - nephrolithiasis - hematuria Six-month testosterone follow-up Lab work within normal limits Continue gel Hypogonadism with daily testosterone gel Nephrolithiasis Nephrolithiasis minimal on left side Does have persistent back pain Has been on Fosamax previously for osteoporosis with vitamin-D Prostate cancer - agent orange exposure external beam radiation 2014 Initial diagnosis 2014 Initial therapy radiation with hormones Previous mild hematuria responded to Proscar PSA - 09/06 0.14, 05/07 0.09, 03/07 0.1, 07/08 0.1, 03/08 485 <0.1 44, 09/09 925 0.12, 03/09 0.13, 10/11 <0.1 350 Nocturia 2-3 times, daytime 3 hours - is slowly improving Hypogonadism Takes testosterone gel On Fosamax for osteoporosis with vitamin-D Laboratories - 11/04 testosterone 550, hematocrit 46.3, 05/07 T 357, 03/07 479, 09/09 925, 01/07 557 Erectile dysfunction Persistent since radiation for prostate cancer Prior trial of oral tablets and vacuum pumps Failed maximum combination therapy with daily tadalafil and top up Was able to used corporal injections however did not reliably produce desired effect Penile prosthetic placed 08/07 Nephrolithiasis Imaging - 09/08 renal ultrasound bilateral cysts up to 3 cm, small stones left multiple 3 mm Radiation cystitis intermittent hematuria PFSH Medical History HTN (hypertension) BPH (benign prostatic hyperplasia) Encounter to establish care Erectile dysfunction due to arterial insufficiency Fracture, thoracic vertebra, compression Lumbar degenerative disc disease Essential hypertension Ascending aortic aneurysm Annual physical exam Normal colonoscopy Prostate CA Allergic rhinitis Polycythemia Hyperlipidemia Hearing problem Insomnia Hypogonadism male Osteoporosis Surgical History Hx of transurethral resection of prostate Hx of cystoscopy History of esophagogastroduodenoscopy (EGD) Hx of appendectomy History of repair of hiatal hernia Hx of hernia repair History of colon resection Hx of nasal septoplasty Hx of colonoscopy Family History Father Alzheimer disease Colon cancer Colon polyps Mother No problems noted. Other Mental health disorder Social History Housing: House Alcohol intake: current Alcohol intake frequency: holidays/special occasions only Patient Tobacco Use Status: Former Tobacco user e-Cigarette/Vaping Use: Never Used Second Hand Smoke Exposure: No service: Yes Current occupational status: employed and retired Current occupational exposures/hazards: No Cognitive needs: No Hearing needs: Yes Vision needs: No Review of Systems Const Denies chills and Denies fever(s) Card Reports no additional complaints and Denies syncope Resp Denies cough GI Denies abdominal pain and Denies heartburn Reports as per HPI and Denies change in libido Neuro Denies syncope Psych Denies change in libido Endo Denies change in libido Physical Exam Const General: cooperative, healthy appearing, comfortable and no acute distress Orientation/consciousness: patient oriented x3 HEENT Face and sinus: Yes normal facial exam Mouth: moist mucous membranes Neck Neck: Yes normal visual inspection, Yes full ROM and Yes trachea midline Chest Chest palpation & inspection: normal inspection of the chest Resp Effort & Inspection: normal respiratory effort, able to speak in complete sentences and no respiratory distress GI Inspection: Yes normal to inspection Back/Spine/Pelvis Cervical Spine: normal cervical lordosis Thoracic/Lumbar Spine: thoracic and lumbar spine normal to inspection Skin General skin exam: no rashes or lesions noted Neuro General: patient oriented x3, gait normal, tone normal and moves all extremities Extrem General: Yes normal to inspection and Yes capillary refill normal Assessment & Plan Assessment & Plan (1) Prostate CA: Comment: 2015 s/p RTX, hormonal tx, f/u urology Dr. Ayers Code(s): C61 - Malignant neoplasm of prostate Category: Medical (2) Erectile dysfunction due to and not concurrent with radiation therapy: Comment: Has establish care with Urology. Patient utilizes testosterone gel. Code(s): N52.35 - Erectile dysfunction following radiation therapy Category: Medical (3) Hypogonadism male: Code(s): E29.1 - Testicular hypofunction Category: Medical Plan Six-month follow-up lab work Orders: Orders Complete Blood Count no Diff 6 Months E29.1 - Testicular hypofunction Prostate Specific Antigen 6 Months E29.1 - Testicular hypofunction Testosterone, Total 6 Months E29.1 - Testicular hypofunction Patient Instructions: This note is constructed using voice recognition software. While every effort has been made to ensure accuracy executive director contract shop errors may have been included. Imaging studies, laboratory and physical exam results were discussed and reviewed in detail. No major barriers to patient understanding were identified. An opportunity to ask questions regarding the treatment plan was provided. All questions were answered. The patient expressed understanding and agreement with the above treatment plan. The patient is aware they should contact our office by phone for worsening of their current condition or the appearance of new urologic symptoms. Compliance is encouraged with any medications and followup testing that is ordered. It is a privilege to participate in the urologic care of your patient. If you have any questions or concerns regarding treatment for the above conditions, or other urologic issues, please do not hesitate to contact me. The office telephone contact is [phone]. Sincerely, Dr Jd Ayers MD, [facility] - Urology Compassionate Specialist Care for the Genitourinary System Coding Level of Care Code Est Pt Level 3 (10955) Diagnoses Prostate CA C61 Erectile dysfunction due to and not concurrent with radiation therapy N52.35 Hypogonadism male E29.1
--- OUTSIDE RECORDS SUMMARY | 2024-10-07 11:59 | XMS_ITS ---
Author Organization [facility] Address [address] [place] [address] Care Team Providers Care Director Of Global Marketing Name Role Phone ZaidajocelynCesilia Landry Primary Care Provider Unav ailable Renato Joseph Unavailable [phone] RESULTS Component Value Reference Range Notes GI PANEL Reviewed date:05/03/2023 11:59:29 AM Interpretation: Performing Lab:[facility], [address] [place] [id number] Notes/Report: Campylobacter Not Detected Not Detect. Plesiomonas [...] is performed by Multiplexed PCR, utilizing the Aprimo Array. REASON FOR VISIT c-diff PROBLEMS Problem Type ICD Code Onset Dates Problem Status W/U Status Risk SNOMED Code Notes Problem Diarrhea, unspecified type (R19.7) Active confirmed 63191627 Encounters Encounter Location Date Provider Diagnosis [facility] [address] [place] [address] 04/30/2023 Renato Joseph Diarrhea, unspecifie d type R19.7 ASSESSMENTS Encounter Date Diagnosis Assessment Notes Treatment Notes Treatment Clinical Notes 04/30/2023 Diarrhea, unspecified type (ICD-10 - R19.7) PLAN OF TREATMENT Pending Test Test Name Order Date STOOL WBC 04/30/2023 C DIFFICILE RFLX PCR 04/30/2023
--- OUTSIDE RECORDS SUMMARY | 2024-10-07 12:00 | XMS_ITS | Clinical Summary ---
Author Organization [facility] Address [address] [place] [address] Care Team Providers Care Lead Generation Representative Name Role Phone Ricardo Ulloa MD Primary Care Provider [phone] Social History Tobacco Use Types Packs/Day Years [...] age to complete this topic Care Teams Lead Generation Representative Relationship Specialty Start Date End Date Ricardo Ulloa MD [address] [facility] [address] [place] [address] PCP - General 02/21/20
--- OUTSIDE RECORDS SUMMARY | 2024-10-07 12:00 | XMS_ITS | Patient Health Record ---
Author Organization [facility] Address [address] [place] [address] Care Team Providers Care Structures Technician Name Role Phone Cesilia Anguiano Primary Care Provider Unav ailRenato Moss Unavailable [phone] ALLERGIES Allergen (clinical drug ingredient) Drug/Non Drug [...] malignant neoplasm of colon (Z12.11) Active confirmed 027983066 Problem History of adenomatous polyp of colon (Z86.010) Active confirmed 206451234 Problem Irritable bowel syndrome without diarrhea (K58.9) Active confirmed 11656643 Problem Diverticulosis (K57.90) Active confirmed 122939629 Problem Preprocedural examination (Z01.818) Active confirmed 110893502763623 Problem History of colon polyps (Z86.010) Active confirmed History of polyp of colon (300698932) Problem Family history of colon cancer (Z80.0) Active confirmed 252000242 Problem Change in bowel function (R19.4) Active confirmed 47114276 Problem Diarrhea, unspecified type (R19.7) Active confirmed 11584227 Problem Diverticulosis of colon (K57.30) Active confirmed Diverticulosi s of colon (523076464) Problem LLQ abdominal pain (R10.32) Active confirmed 631271511 PLAN OF TREATMENT Pending Test Test Name [...] Insured Coverage Start Date Coverage End Date [facility] [address] [place] [address] [id number] HANH COELHO Self - patient is the insured MEDICAL (GENERAL) HISTORY Medical History History ICD Code HTN Denies ID,DM,CVA,renal disease Diverticulitis with surgery as below Hyperlipidemia BPH Neg colonoscopy with Dr. Nain taylor in 05/2012--previous polyps removed at the [facility] EGD's in [place] prior to the kenia ibeth CT in 05/2013 and 11/2015 fercho wed only diverticulosis and renal cysts--he has also had negative abdominal ultrasound and MRIs ? [place]---sees Dr. Gallagher-had phleb otomy--presently inactive Prostate cancer--finished XRT in 09/2015 Pleural effusion on the left -2014--saw Dr. Worthy at [facility]--had CT scans and a thoracentesis--no cancer--being [...]
--- OUTSIDE RECORDS SUMMARY | 2024-10-07 12:00 | XMS_ITS | Continuity of Care Document ---
Author Name [facility] Organization [facility] Care Team Providers Care Dtp Operator Name Role Phone [facility] Unavailable Unavailable Problems Combined list of problems [...] [place] [facility] Benign essential hypertension (SNOMED CT 8929425) Active Condition [facility] [place] Bloating (ICD-9-CM 787.3) Active Condition [facility] CALCULUS OF KIDNEY Active Condition [facility] [...] Entered By: RADHA MORENO Comment: Colectomy @ [facility] about 2004.Aug 22, 2010 Entered By: RADHA MORENO Comment: His father had colon cancer. [facility] Exposure to potentially hazardous substance Active Condition Oct 14, 2023 Entered By: ANALY SOW Comment: Connect Snomed Code to ICD 10 Code refer to note dated 07/20/23 [facility] former smoker Active Condition [facility] [...] TUR 10/2101 Dr Stephens at [facility]. [facility] Hypogonadism Active Condition [facility] Impaired FASTING Glucose (ICD-9-CM 790.21) Active Condition [facility] Insomnia * (ICD-9-CM 780.52) Active Condition [facility] Sciatica Active Condition [facility] Thoracic aortic aneurysm without rupture Active Condition Jun 14, 2024 Entered By: RADHA MORENO Comment: Followed by [facility]. [facility] Tinnitus * (ICD-9-CM 388.30) Active Condition [facility] TINNITUS NOS Active Condition [facility] H. Pylori therapy 1997 Inactive Condition 07/11/2013 [facility] Hiatal Hernia Inactive Condition 01/13/2012 December 162011 Entered By: RADHA MORENO Comment: lap surgery about 2005 was curative. 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 Diagnosis: ICD-10-CM M47.26 Other spondylosis with radiculopathy, lumbar region Active 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 Medications Combined list of outpatient medications [...] ON RESPIR ATORY (INHAL ATION) ACTIVE 11/17/2024 [id number] APOORVA MORENO 2023 1 [facility] AMLODIPINE BESYLATE 10MG TAB TAKE ONE TABLET BY MOUTH ONCE DAILY FOR BLOOD PRESSURE /HEART, DO NOT TAKE WITH GRAPEFRU IT JUICE ORAL SUSPEND ED 06/22/2025 [id number] 5 APOORVA MORENO 2023 90 [facility] AMLODIPINE BESYLATE 10MG TAB TAKE ONE TABLET BY MOUTH ONCE DAILY FOR BLOOD PRESSURE /HEART, DO NOT TAKE WITH GRAPEFRU IT JUICE ORAL DISCONT INUED (EDIT) 02/19/2025 [id number] 4 APOORVA MORENO 2023 30 [facility] AMLODIPINE BESYLATE 10MG TAB TAKE ONE TABLET BY MOUTH ONCE DAILY FOR BLOOD PRESSURE /HEART, DO NOT TAKE WITH GRAPEFRU IT JUICE ORAL DISCONT INUED (EDIT) 07/20/2024 [id number] 4 APOORVA MORENO 2022 30 [facility] [place] AMLODIPINE BESYLATE 2.5MG TAB TAKE THREE TABLETS BY MOUTH ONCE DAILY FOR BLOOD PRESSURE /HEART, DO NOT TAKE WITH GRAPEFRU IT JUICE ORAL DISCONT INUED (EDIT) 11/17/2024 [id number] 4 APOORVA MORENO 2023 90 [facility] [place] ASPIRIN 81MG TAB,EC TAKE ONE TABLET BY MOUTH DAILY ORAL ACTIVE APOROVA MORENO 2013 [facility] ATORVASTATI N CA 40MG TAB TAKE ONE-HALF TABLET BY MOUTH ONCE DAILY FOR CHOLESTE ROL REPLACES SIMVASTA TIN. ORAL SUSPEND ED 02/19/2025 [id number] 5 APOORVA MORENO 2023 45 [facility] [place] [facility] ATORVASTATI N CA 40MG TAB TAKE ONE-HALF TABLET BY MOUTH ONCE DAILY FOR CHOLESTE ROL REPLACES SIMVASTA TIN. ORAL DISCONT INUED 07/20/2024 [id number] 4 APOORVA MORENO 2022 45 [facility] [place] CARBOXYMETH YLCELLULOSE NA 0.5% SOLN,OPH INSTILL 1 DROP INTO EACH EYE FOUR TIMES DAILY NEEDED FOR DRY EYE OPHTHA LMIC ACTIVE 08/13/2025 [id number] 4 Samaria ESTRADA E 2023 15 [facility] [place] [facility] CARVEDILOL 12.5MG TAB TAKE ONE TABLET BY MOUTH TWICE DAILY FOR HIGH BLOOD PRESSURE ORAL ACTIVE 06/22/2025 [id number] 5 APOORVA MORENO 2023 180 [facility] [place] [facility] DICLOFENAC NA 1% GEL,TOP APPLY 4 GRAMS TOPICALL Y THREE TIMES DAILY NEEDED FOR OSTEOART HRITIS - USE DOSING CARD PROVIDED IN BOX TOPICA L 01/14/2024 [id number] 4 RAOUL HOPKINS 2023 300 [facility] [place] LATANOPROST 0.005% SOLN,OPH INSTILL 1 DROP INTO THE LEFT EYE AT BEDTIME TO REDUCE PRESSURE IN THE EYE OPHTHA LMIC ACTIVE 05/05/2025 [id number] 4 Samaria ESTRADA NDREW E 2023 7.5 [facility] [place] LATANOPROST 0.005% SOLN,OPH INSTILL 1 DROP INTO THE LEFT EYE AT BEDTIME TO REDUCE PRESSURE IN THE EYE OPHTHA LMIC DISCONT INUED 02/14/2024 [id number] 4 Samaria ESTRADA NDREW E 2022 5 [facility] [place] TESTOSTERON E (EQV-ANDROG EL) 1% 5GM/PKT GEL,TOP APPLY 1 PACKET TOPICALL Y ONCE DAILY TO SHOULDER . RUB IN UNTIL DRY, THEN WASH HANDS WITH SOAP AND WATER TOPICA L ACTIVE 12/22/2024 [id number] 5 APOORVA MORENO 2023 30 [facility] TESTOSTERON E (EQV-ANDROG EL) 1% 5GM/PKT GEL,TOP APPLY 1 PACKET TOPICALL Y ONCE DAILY TO SHOULDER . RUB IN UNTIL DRY, THEN WASH HANDS WITH SOAP AND WATER TOPICA L DISCONT INUED 03/20/2024 [id number] SUSI ALBERTO MD 2023 30 [facility] [place] TESTOSTERON E (EQV-ANDROG EL) 1% 5GM/PKT GEL,TOP APPLY 1 PACKET TOPICALL Y ONCE DAILY TO SHOULDER . RUB IN UNTIL DRY, THEN WASH HANDS WITH SOAP AND WATER TOPICA L 08/28/2023 [id number] SUSI ALBERTO MD 2022 30 [place] ZOLPIDEM TARTRATE 10MG TAB TAKE ONE TABLET BY MOUTH AT BEDTIME FOR SLEEP ORAL ACTIVE 11/05/2024 [id number] 5 APOORVA MORENO 2023 30 [facility] ZOLPIDEM TARTRATE 10MG TAB TAKE ONE TABLET BY MOUTH AT BEDTIME NEEDED FOR SLEEP ORAL DISCONT INUED 11/11/2023 [id number] 4 APOORVA MORENO 2022 30 [facility] [place] ZOLPIDEM TARTRATE 10MG TAB TAKE ONE TABLET BY MOUTH AT BEDTIME FOR SLEEP ORAL 04/22/2024 [id number] 4 APOORVA MORENO 2023 30 [facility] [place] [facility] Allergies, Adverse Reactions, Alerts Combined list of allergies from Department of Defense and Veterans Affairs facilities. It does not include entries that were removed or entered in error. Substance Category Reaction Severity Reaction type Status Date Reported Comments Source AUGMENTIN Propensity to adverse reactions to drug (finding) Abdominal pain active 1 [facility] SULFONAMIDE/ RELATED ANTIMICROBIA LS Propensity to adverse reactions to drug (finding) HIVES active 8 [facility] [place] [facility] Immunizations Combined list of available immunizations from the Department of Defense and Veterans Affairs facilities. Immunization Series Date Given Administered By Site Reaction Lot Number CVX Code Drug Financial Risk Manager Status Comments Source COVID-19 (MODERNA), MRNA, LNP-S, PF, 50 MCG/0.5 ML (AGES 12+ YEARS) 2023 CLARA JULIO LEFT DELTO ID [id number] 312 complet ed [facility] [place] [facility] INFLUENZA, HIGH-DOSE, TRIVALENT, PF 2023 CLARA JUILO LEFT DELTO ID [id number] 135 complet ed [facility] [place] [facility] [facility] INFLUENZA, HIGH-DOSE, QUADRIVALENT 2022 CHRALY CARY E LEFT DELTO ID [id number] 197 complet ed [facility] [place] [facility] COVID-19 (MODERNA), MRNA, LNP-S, PF, 50 MCG/0.5 ML (AGES 12+ YEARS) 4 2022 LEFT DELTO ID 312 complet ed [employer] Lot#: [id number] Mfr: [employer] [facility] [place] INFLUENZA VACCINE, QUADRIVALENT, ADJUVANTED 2021 205 complet ed [facility] COVID-19 (MODERNA), MRNA, LNP-S, PF, 100 MCG/0.5ML DOSE OR 50 MCG/0.25ML DOSE 3 2020 207 complet ed [facility] COVID-19 (MODERNA), MRNA, LNP-S, PF, 100 [...] TD(ADULT) UNSPECIFIED FORMULATION 2014 139 complet ed [facility] ED. Probably TD. after a dogbite. [...] Jun 08, 2024 11:04 AM Reporting Lab: [facility] [place] [facility] [address] [facility] [address] Performing Lab: [facility] [place] [facility] [address] [facility] [address] [facility] [place] [facility] BASIC METABOLIC PANEL (fasting) GLUCOSE [MASS/VOLUM E] IN SERUM OR PLASMA 105 mg/dL 65 - 100 06/14 H Specimen Type: SERUM No comment entered. Ordering Provider: Jimena MORENO Report Released Date/Time: Jun 08, 2024 11:04 AM Reporting Lab: [facility] [place] [facility] [address] [facility] [address] Performing Lab: [facility] [place] [facility] [address] [facility] [address] [facility] [place] [facility] BASIC METABOLIC PANEL (fasting) SODIUM [MOLES/VOLU ME] IN SERUM OR PLASMA 138 mmol/L 135 - 145 06/14 Specimen Type: SERUM No comment entered. Ordering Provider: Jimena MORENO Report Released Date/Time: Jun 08, 2024 11:04 AM Reporting Lab: [facility] [place] [facility] [address] [facility] [address] Performing Lab: [facility] [place] [facility] [address] [facility] [address] [facility] [facility] BASIC METABOLIC PANEL (fasting) POTASSIUM [MOLES/VOLU ME] IN SERUM OR PLASMA 4.2 mmol/L 3.5 - 5.0 06/14 Specimen Type: SERUM No comment entered. Ordering Provider: Jimena MORENO Report Released Date/Time: Jun 08, 2024 11:04 AM Reporting Lab: [facility] [place] [facility] [address] [facility] [address] Performing Lab: [facility] [place] [facility] [address] [facility] [address] [facility] [place] [facility] BASIC METABOLIC PANEL (fasting) CHLORIDE [MOLES/VOLU ME] IN SERUM OR PLASMA 107 mmol/L 100 - 110 06/14 Specimen Type: SERUM No comment entered. Ordering Provider: Jimena MORENO Report Released Date/Time: Jun 08, 2024 11:04 AM Reporting Lab: [facility] [place] [facility] [address] [facility] [address] Performing Lab: [facility] [place] [facility] [address] [facility] [address] [facility] [place] [facility] BASIC METABOLIC PANEL (fasting) CARBON DIOXIDE, TOTAL [MOLES/VOLU ME] IN SERUM OR PLASMA 22 meq/L 20 - 30 06/14 Specimen Type: SERUM No comment entered. Ordering Provider: Jimena MORENO Report Released Date/Time: Jun 08, 2024 11:04 AM Reporting Lab: [facility] [place] [facility] [address] [facility] [address] Performing Lab: [facility] [place] [facility] [address] [facility] [address] [facility] [facility] BASIC METABOLIC PANEL (fasting) CREATININE [MASS/VOLUM E] IN SERUM OR PLASMA 0.74 mg/dL 0.50 - 1.40 06/14 Specimen Type: SERUM No comment entered. Ordering Provider: Jimena MORENO Report Released Date/Time: Jun 08, 2024 11:04 AM Reporting Lab: [facility] [place] [facility] [address] [facility] [address] Performing Lab: [facility] [place] [address] [address] [facility] [place] [facility] BASIC METABOLIC PANEL (fasting) GLOMERULAR FILTRATION RATE/1.73 SQ M.PREDICTED [VOLUME RATE/AREA] IN SERUM, PLASMA OR BLOOD BY CREATININE- BASED FORMULA (CKD-EPI 2020) >90mL/ min 60 06/14 Specimen Type: SERUM No comment entered. Ordering Provider: Jimena MORENO Report Released Date/Time: Jun 08, 2024 11:04 AM Reporting Lab: [facility] [place] [address] [address] Performing Lab: [facility] [place] [facility] [address] [facility] [facility] [address] [facility] [place] [facility] LIPID PANEL FASTING CHOLESTEROL [MASS/VOLUM E] IN SERUM OR PLASMA 166 mg/dL 06/14 Specimen Type: SERUM No comment entered. Ordering Provider: Jimena MORENO Report Released Date/Time: Jun 08, 2024 11:04 AM Reporting Lab: [facility] [place] [address] [address] Performing Lab: [facility] [place] [facility] [address] [facility] [address] [facility] LIPID PANEL FASTING TRIGLYCERID E [MASS/VOLUM E] IN SERUM OR PLASMA 71 mg/dL 0 - 150 06/14 Specimen Type: SERUM No comment entered. Ordering Provider: Jimena MORENO Report Released Date/Time: Jun 08, 2024 11:04 AM Reporting Lab: [facility] [place] [facility] [address] [facility] [address] Performing Lab: [facility] [place] [facility] [address] [facility] [address] [facility] LIPID PANEL FASTING CHOLESTEROL IN LDL [MASS/VOLUM E] IN SERUM OR PLASMA BY CALCULATION 95 mg/dL 0 - 129 06/14 Specimen Type: SERUM No comment entered. Ordering Provider: Jimena MORENO Report Released Date/Time: Jun 08, 2024 11:04 AM Reporting Lab: [facility] [place] [facility] [address] [facility] [address] Performing Lab: [facility] [place] [facility] [address] [facility] [facility] [address] [facility] LIPID PANEL FASTING CHOLESTEROL .TOTAL/CHOL ESTEROL IN HDL [MASS RATIO] IN SERUM OR PLASMA 2.9 06/14 Specimen Type: SERUM No comment entered. Ordering Provider: Jimena MORENO Report Released Date/Time: Jun 08, 2024 11:04 AM Reporting Lab: [facility] [place] [facility] [address] [facility] [address] Performing Lab: [facility] [place] [facility] [address] [facility] [address] [facility] [place] [facility] LIPID PANEL FASTING CHOLESTEROL IN HDL [MASS/VOLUM E] IN SERUM OR PLASMA 57 mg/dL 40 - 60 06/14 Specimen Type: SERUM No comment entered. Ordering Provider: Jimena MORENO Report Released Date/Time: Jun 08, 2024 11:04 AM Reporting Lab: [facility] [place] [facility] [address] [facility] [address] Performing Lab: [facility] [place] [facility] [address] [facility] [address] [facility] [place] [facility] LIVER FUNCTION PROTEIN [MASS/VOLUM E] IN SERUM OR PLASMA 6.8 g/dL 6.0 - 8.3 06/14 Specimen Type: SERUM No comment entered. Ordering Provider: Jimena MORENO Report Released Date/Time: Jun 08, 2024 11:04 AM Reporting Lab: [facility] [place] [facility] [address] [facility] [address] Performing Lab: [facility] [place] [facility] [address] [facility] [address] [facility] [place] [facility] LIVER FUNCTION ALBUMIN [MASS/VOLUM E] IN SERUM OR PLASMA 4.0 g/dL 3.5 - 5.0 06/14 Specimen Type: SERUM No comment entered. Ordering Provider: Jimena MORENO Report Released Date/Time: Jun 08, 2024 11:04 AM Reporting Lab: [facility] [place] [facility] [address] [facility] [address] Performing Lab: [facility] [place] [facility] [address] [facility] [address] [facility] [place] [facility] LIVER FUNCTION ALKALINE PHOSPHATASE [ENZYMATIC ACTIVITY/VO LUME] IN SERUM OR PLASMA 63 U/L 40 - 150 06/14 Specimen Type: SERUM No comment entered. Ordering Provider: Jimena MORENO Report Released Date/Time: Jun 08, 2024 11:04 AM Reporting Lab: [facility] [place] [facility] [address] [facility] [address] Performing Lab: [facility] [place] [facility] [address] [facility] [address] [facility] [place] [facility] LIVER FUNCTION ASPARTATE AMINOTRANSF ERASE [ENZYMATIC ACTIVITY/VO LUME] IN SERUM OR PLASMA 18 U/L 5 - 34 06/14 Specimen Type: SERUM No comment entered. Ordering Provider: Jimena MORENO Report Released Date/Time: Jun 08, 2024 11:04 AM Reporting Lab: [facility] [place] [facility] [address] [facility] [address] Performing Lab: [facility] [place] [facility] [address] [facility] [address] [facility] [place] [facility] LIVER FUNCTION ALANINE AMINOTRANSF ERASE [ENZYMATIC ACTIVITY/VO LUME] IN SERUM OR PLASMA 30 U/L 06/14 Specimen Type: SERUM No comment entered. Ordering Provider: Jimena MORENO Report Released Date/Time: Jun 08, 2024 11:04 AM Reporting Lab: [facility] [place] [facility] [address] [facility] [address] Performing Lab: [facility] [place] [facility] [address] [facility] [address] [facility] [place] [facility] LIVER FUNCTION BILIRUBIN.T OTAL [MASS/VOLUM E] IN SERUM OR PLASMA 0.8 mg/dL 0.2 - 1.2 06/14 Specimen Type: SERUM No comment entered. Ordering Provider: Jimena MORENO Report Released Date/Time: Jun 08, 2024 11:04 AM Reporting Lab: [facility] [place] [facility] [address] [facility] [address] Performing Lab: [facility] [place] [facility] [address] [facility] [address] [facility] [place] [facility] BASIC METABOLIC PANEL (fasting) UREA NITROGEN [MASS/VOLUM E] IN SERUM OR PLASMA 18 mg/dL 7 - 25 02/15 Specimen Type: SERUM No comment entered. Ordering Provider: Jimena MORENO Report Released Date/Time: Nov 17, 2023 11:49 AM Reporting Lab: [facility] [place] [facility] [address] [facility] [address] Performing Lab: [facility] [place] [facility] [address] [facility] [address] [facility] [place] [facility] BASIC METABOLIC PANEL (fasting) GLUCOSE [MASS/VOLUM E] IN SERUM OR PLASMA 94 mg/dL 65 - 100 02/15 Specimen Type: SERUM No comment entered. Ordering Provider: Jimena MORENO Report Released Date/Time: Nov 17, 2023 11:49 AM Reporting Lab: [facility] [place] [facility] [address] [facility] [address] Performing Lab: [facility] [place] [facility] [address] [facility] [address] [facility] [place] [facility] BASIC METABOLIC PANEL (fasting) SODIUM [MOLES/VOLU ME] IN SERUM OR PLASMA 141 mmol/L 135 - 145 02/15 Specimen Type: SERUM No comment entered. Ordering Provider: Jimena MORENO Report Released Date/Time: Nov 17, 2023 11:49 AM Reporting Lab: [facility] [place] [facility] [address] [facility] [address] Performing Lab: [facility] [place] [address] [address] [facility] [place] [facility] BASIC METABOLIC PANEL (fasting) POTASSIUM [MOLES/VOLU ME] IN SERUM OR PLASMA 4.1 mmol/L 3.5 - 5.0 02/15 Specimen Type: SERUM No comment entered. Ordering Provider: Jimena MORENO Report Released Date/Time: Nov 17, 2023 11:49 AM Reporting Lab: [facility] [place] [facility] [address] [facility] [address] Performing Lab: [facility] [place] [facility] [address] [facility] [address] [facility] [place] [facility] BASIC METABOLIC PANEL (fasting) CHLORIDE [MOLES/VOLU ME] IN SERUM OR PLASMA 109 mmol/L 100 - 110 02/15 Specimen Type: SERUM No comment entered. Ordering Provider: Jimena MORENO Report Released Date/Time: Nov 17, 2023 11:49 AM Reporting Lab: [facility] [place] [facility] [address] [facility] [address] Performing Lab: [facility] [place] [facility] [address] [facility] [address] [facility] BASIC METABOLIC PANEL (fasting) CARBON DIOXIDE, TOTAL [MOLES/VOLU ME] IN SERUM OR PLASMA 24 meq/L 20 - 30 02/15 Specimen Type: SERUM No comment entered. Ordering Provider: Jimena MORENO Report Released Date/Time: Nov 17, 2023 11:49 AM Reporting Lab: [facility] [address] [address] Performing Lab: [facility] [phone] [place], [place] [address] [facility] BASIC METABOLIC PANEL (fasting) CREATININE [MASS/VOLUM E] IN SERUM OR PLASMA 0.77 mg/dL 0.50 - 1.40 02/15 Specimen Type: SERUM No comment entered. Ordering Provider: Jimena MORENO Report Released Date/Time: Nov 17, 2023 11:49 AM Reporting Lab: [facility] [address] Performing Lab: [facility] [address] [facility] BASIC METABOLIC PANEL (fasting) GLOMERULAR FILTRATION RATE/1.73 SQ M.PREDICTED [VOLUME RATE/AREA] IN SERUM, PLASMA OR BLOOD BY CREATININE- BASED FORMULA (CKD-EPI 2020) >90mL/ min 60 02/15 Specimen Type: SERUM No comment entered. Ordering Provider: Jimena MORENO Report Released Date/Time: Nov 17, 2023 11:49 AM Reporting Lab: [facility] [address] [address] Performing Lab: [facility] [address] [facility] LIPID PANEL FASTING CHOLESTEROL [MASS/VOLUM E] IN SERUM OR PLASMA 146 mg/dL 02/15 Specimen Type: SERUM No comment entered. Ordering Provider: Jimena MORENO Report Released Date/Time: Nov 17, 2023 11:49 AM Reporting Lab: [facility] [place] [facility] [address] [facility] [address] Performing Lab: [facility] [place] [facility] [address] [facility] [address] [facility] [place] [facility] LIPID PANEL FASTING TRIGLYCERID E [MASS/VOLUM E] IN SERUM OR PLASMA 96 mg/dL 0 - 150 02/15 Specimen Type: SERUM No comment entered. Ordering Provider: Jimena MORENO Report Released Date/Time: Nov 17, 2023 11:49 AM Reporting Lab: [facility] [place] [facility] [address] [facility] [address] Performing Lab: [facility] [place] [facility] [address] [address] [facility] LIPID PANEL FASTING CHOLESTEROL IN LDL [MASS/VOLUM E] IN SERUM OR PLASMA BY CALCULATION 80 mg/dL 0 - 129 02/15 Specimen Type: SERUM No comment entered. Ordering Provider: Jimena MORENO Report Released Date/Time: Nov 17, 2023 11:49 AM Reporting Lab: [facility] [place] [facility] [address] [facility] [address] Performing Lab: [facility] [place] [facility] [address] [facility] [address] [phone] [facility] [place] [facility] LIPID PANEL FASTING CHOLESTEROL .TOTAL/CHOL ESTEROL IN HDL [MASS RATIO] IN SERUM OR PLASMA 3.1 02/15 Specimen Type: SERUM No comment entered. Ordering Provider: Jimena MORENO Report Released Date/Time: Nov 17, 2023 11:49 AM Reporting Lab: [facility] [place] [facility] [address] [facility] [address] [phone] Performing Lab: [facility] [place] [facility] [address] [address] [place] [facility] [facility] LIPID PANEL FASTING CHOLESTEROL IN HDL [MASS/VOLUM E] IN SERUM OR PLASMA 47 mg/dL 40 - 60 02/15 Specimen Type: SERUM No comment entered. Ordering Provider: Jimena MORENO Report Released Date/Time: Nov 17, 2023 11:49 AM Reporting Lab: [facility] [place] [facility] [address] [facility] [facility] [address] Performing Lab: [facility] [place] [facility] [address] [facility] [address] [facility] [place] [facility] LIVER FUNCTION PROTEIN [MASS/VOLUM E] IN SERUM OR PLASMA 6.8 g/dL 6.0 - 8.3 02/15 Specimen Type: SERUM No comment entered. Ordering Provider: Jimena MORENO Report Released Date/Time: Nov 17, 2023 11:49 AM Reporting Lab: [facility] [place] [facility] [address] [facility] [facility] [address] Performing Lab: [facility] [place] [address] [address] [facility] [place] [facility] LIVER FUNCTION ALBUMIN [MASS/VOLUM E] IN SERUM OR PLASMA 4.2 g/dL 3.5 - 5.0 02/15 Specimen Type: SERUM No comment entered. Ordering Provider: Jimena MORENO Report Released Date/Time: Nov 17, 2023 11:49 AM Reporting Lab: [facility] [place] [address] [address] Performing Lab: [facility] [place] [facility] [address] [facility] [facility] [address] [facility] [place] [facility] LIVER FUNCTION ALKALINE PHOSPHATASE [ENZYMATIC ACTIVITY/VO LUME] IN SERUM OR PLASMA 63 U/L 40 - 150 02/15 Specimen Type: SERUM No comment entered. Ordering Provider: Jimena MORENO Report Released Date/Time: Nov 17, 2023 11:49 AM Reporting Lab: [facility] [place] [facility] [address] [facility] [facility] [address] Performing Lab: [facility] [place] [address] [address] [facility] [place] [facility] LIVER FUNCTION ASPARTATE AMINOTRANSF ERASE [ENZYMATIC ACTIVITY/VO LUME] IN SERUM OR PLASMA 25 U/L 5 - 34 02/15 Specimen Type: SERUM No comment entered. Ordering Provider: Jimena MORENO Report Released Date/Time: Nov 17, 2023 11:49 AM Reporting Lab: [facility] [place] [address] [address] Performing Lab: [facility] [place] [address] [address] [facility] [place] [facility] LIVER FUNCTION ALANINE AMINOTRANSF ERASE [ENZYMATIC ACTIVITY/VO LUME] IN SERUM OR PLASMA 24 U/L 02/15 Specimen Type: SERUM No comment entered. Ordering Provider: Jimena MORENO Report Released Date/Time: Nov 17, 2023 11:49 AM Reporting Lab: [facility] [place] [address] [address] Performing Lab: [facility] [place] [address] [address] [facility] LIVER FUNCTION BILIRUBIN.T OTAL [MASS/VOLUM E] IN SERUM OR PLASMA 1.1 mg/dL 0.2 - 1.2 02/15 Specimen Type: SERUM No comment entered. Ordering Provider: Jimena MORENO Report Released Date/Time: Nov 17, 2023 11:49 AM Reporting Lab: [facility] [place] [address] [address] Performing Lab: [facility] [place] [address] [address] [facility] [place] [facility] PSA PROSTATE SPECIFIC AG [MASS/VOLUM E] IN SERUM OR PLASMA 0.14 ng/mL 0.00 - 4.00 02/15 Specimen Type: SERUM No comment entered. Ordering Provider: Jimena MORENO Report Released Date/Time: Nov 17, 2023 11:49 AM Reporting Lab: [facility] [place] [address] [address] Performing Lab: [facility] [place] [facility] [address] [facility] [facility] [address] [place] [facility] [place] LIPID PANEL FASTING CHOLESTEROL [MASS/VOLUM E] IN SERUM OR PLASMA 142 mg/dL 11/08 Specimen Type: SERUM No comment entered. Ordering Provider: Jimena MORENO Report Released Date/Time: Jul 20, 2023 03:40 PM Reporting Lab: [facility] [place] [facility] [address] [facility] [facility] [address] Performing Lab: [facility] [place] [facility] [address] [facility] [facility] [address] [facility] [place] [facility] LIPID PANEL FASTING TRIGLYCERID E [MASS/VOLUM E] IN SERUM OR PLASMA 85 mg/dL 0 - 150 11/08 Specimen Type: SERUM No comment entered. Ordering Provider: Jimena MORENO Report Released Date/Time: Jul 20, 2023 03:40 PM Reporting Lab: [facility] [place] [facility] [address] [facility] [facility] [address] Performing Lab: [facility] [place] [facility] [address] [facility] [facility] [address] [place] [facility] [facility] LIPID PANEL FASTING CHOLESTEROL IN LDL [MASS/VOLUM E] IN SERUM OR PLASMA BY CALCULATION 79 mg/dL 0 - 129 11/08 Specimen Type: SERUM No comment entered. Ordering Provider: Jimena MORENO Report Released Date/Time: Jul 20, 2023 03:40 PM Reporting Lab: [facility] [place] [facility] [address] [facility] [address] Performing Lab: [facility] [place] [facility] [address] [facility] [facility] [address] [facility] [place] [facility] LIPID PANEL FASTING CHOLESTEROL .TOTAL/CHOL ESTEROL IN HDL [MASS RATIO] IN SERUM OR PLASMA 3.1 11/08 Specimen Type: SERUM No comment entered. Ordering Provider: Jimena MORENO Report Released Date/Time: Jul 20, 2023 03:40 PM Reporting Lab: [facility] [place] [facility] [address] [facility] [address] Performing Lab[facility] [place] [facility] [address] [facility] [facility] [address] [facility] [place] [facility] LIPID PANEL FASTING CHOLESTEROL IN HDL [MASS/VOLUM E] IN SERUM OR PLASMA 46 mg/dL 40 - 60 11/08 Specimen Type: SERUM No comment entered. Ordering Provider: Jimena MORENO Report Released Date/Time: Jul 20, 2023 03:40 PM Reporting Lab: [facility] [place] [facility] [address] [facility] [facility] [address] Performing Lab: [facility]ITALTR[facility]USE[address] [address] [facility]N [facility] PSA PROSTATE SPECIFIC AG [MASS/VOLUM E] IN SERUM OR PLASMA 0.12 ng/mL 0.00 - 4.00 11/08 Specimen Type: SERUM No comment entered. Ordering Provider: Jimena MORENO Report Released Date/Time: Jul 20, 2023 03:40 PM Reporting Lab: [facility]ITALTRN [facility] CENTERUSETS [address] [address] Performing Lab: [facility]PITALTRN [facility] CENTERUSE[address] [address] [facility] TESTOSTER ONE, TOTAL TESTOSTERON E [MASS/VOLUM E] IN SERUM OR PLASMA 585.06 ng/dL 220.00 - 892.00 11/08 Specimen Type: SERUM No comment entered. Ordering Provider: Jimena MORENO Report Released Date/Time: Jul 20, 2023 03:40 PM Reporting Lab: [facility] [place] [address] [address] Performing Lab: [facility]TR[facility] [place] [address] [address] [facility]OSPITALN [facility] Vital Signs Combined list of inpatient and outpatient Vital Signs from Department of Defense and Veterans Affairs, ranging from 12 months to all on record, depending upon the facility. Vital Sign Value Date Comments Source SYSTOLIC BLOOD PRESSURE 142 08/12/20 24 10:12:42 [facility] [place] [facility] DIASTOLIC BLOOD PRESSURE 90 024 10:12:42 [facility] [place] [facility] PULSE 67 08/12/2024 10:12:42 [facility] [place] [facility] SYSTOLIC BLOOD PRESSURE 140 07/19/20 24 10:16:26 [...] [facility] [place] [facility] DIASTOLIC BLOOD PRESSURE 95 10:47:22 [facility] [place] [facility] PULSE [...] included; 2) Encounters from the Department of [facility] facilities going backup to 280 months. Location Location Details Encounter Type Encounter Number Reason For Visit Attending Provider ADM Date DC Date Status Disposition Source [facility] En[facility] [id number] 04/13 [facility] En[facility] [id number] 05/08 [facility] En[facility] [id number] 05/11 [facility] En[facility] [id number] 06/13 [facility] [place] En[facility] [id number] 06/13 [facility] En[facility] [id number] 06/19 [facility] En[facility] [id number] 06/29 [facility] OFFICE O/P EST LOW 20-29 MIN [id number] Diagnos is: ICD-10- CM I11.9 Hyperte nsive heart disease without heart failure APOORVA MORENO 07/20 [facility] En[facility] [id number] 07/20 [facility] En[facility] [id number] 07/22 [facility] En[facility] [id number] 08/05 [facility] OFF/OP EST MAY X REQ PHY/QHP [id number] Diagnos is: ICD-10- CM I11.9 Hyperte nsive heart disease without heart failure Cipriano GONZALES 08/21 [facility] En[facility] [id number] 09/04 [facility] En[facility] [id number] 09/18 [facility] En[facility] [id number] 09/29 [facility] [place] PT 1/ [id number] 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, left eye, mild stage MASOUD ESTRADA BRANDYN E 10/02 [facility] EXTENDED VISUAL FIELD XM [id number] 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, left eye, mild stage BORASKI,AN BRANDYN E 10/02 [facility] CMPTR OPHTH IMG OPTIC NERVE [id number] 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, left eye, mild stage BORASKI,AN BRANDYN E 10/02 [facility] En[facility] [id number] 10/20 [facility] En[facility] [id number] 10/28 [facility] En[facility] [id number] 11/15 [facility] OFFICE O/P EST LOW 20 MIN [id number] Diagnos is: ICD-10- CM I11.9 Hyperte nsive heart disease without heart failure APOORVA MORENO 11/16 [facility] En[facility] [id number] 11/16 [facility] En[facility] [id number] 11/18 [facility] En[facility] [id number] 11/29 [facility] En[facility] [id number] 12/13 [facility] MTMS BY PHARM ADDL 15 MIN [id number] Diagnos is: ICD-10- CM 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 SANDEEP,MADAI DOMINGO S 12/14 [facility] En[facility] [id number] [facility] [place] En[facility] [id number] [facility] [place] En[facility] [id number] 1.02/18 [facility] OFFICE O/P EST LOW 20 MIN [id number] Diagnos is: ICD-10- CM I11.9 Hyperte nsive heart disease without heart failure APOORVA MORENO 02/18 [facility] [id number] 1.03/02 [facility] En[facility] [id number] [facility] En[facility] [id number] 1.05/04 [facility] [place] [facility] MNGMENT TRAINING [id number] Diagnos is: ICD-10- CM M47.896 Other spondyl osis, lumbar region ALEXANDRA SKELTON 05/05 [facility] [id number] Diagnos is: ICD-10- CM M47.896 Other spondyl osis, lumbar region ALEXANDRA SKELTON 05/20 [place] EXERCIS[place] [id number] Diagnos is: ICD-10- CM M47.896 Other spondyl osis, lumbar region ALEXANDRA SKELTON 06/10 [place] [facility] [place] [facility] Outpatient Encounter [id number] 1.06/14 [facility] [place] [facility] [place] [facility] TRAINING [id number] Diagnos is: ICD-10- CM M47.896 Other spondyl osis, lumbar region ALEXANDRA SKELTON 06/16 [place] [facility] [place] [facility] Outpatient Encounter [id number] 06/17 [facility] [place] [facility] [place] [facility] OFFICE O/P EST LOW 20 MIN [id number] Diagnos is: ICD-10- CM M47.26 Other spondyl osis with radicul opathy, lumbar region Lauren PEREIRA 06/21 [facility] [place] [facility] [place] [facility] OFFICE O/P EST LOW 20 MIN [id number] 1. Diagnos is: ICD-10- CM I11.9 Hyperte nsive heart disease without heart failure APOORVA MORENO 06/21 [facility] [place] [facility] [place] [facility] Outpatient Encounter [id number] 06/30 [facility] [place] [facility] OFF/OP EST MAY X REQ PHY/QHP [id number] Diagnos is: ICD-10- CM I11.9 Hyperte nsive heart disease without heart failure Cipriano GONZALES 07/19 [facility] [place] EXTENDED VISUAL FIELD XM [id number] 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, left eye, mild stage BORASKI,AN BRANDYN E 08/12 [facility] [place] [facility] CMPTR OPHTH IMG OPTIC NERVE [id number] 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, left eye, mild stage BORASKI,AN BRANDYN E 08/12 [facility] [place] [facility] INTRM OPH EXAM EST PATIENT [id number] 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, left eye, mild stage BORASKI,AN BRANDYN E 08/12 [facility] [place] [place] [facility] OFF/OP EST MAY X REQ PHY/QHP [id number] Diagnos is: ICD-10- CM I11.9 Hyperte nsive heart disease without heart failure Cipriano GONZALES 08/12 [facility] [place] [facility] Social History Combined list of available smoking, tobacco, and other social history from Department of Defense and Veterans Affairs facilities. Social History Type Response Date Comment Source Tobacco smoking status [facility] VA-TOBACCO FORMER USER 11/17/2023 [facility] [place] [facility] History of tobacco use VA-TOBACCO QUIT 15 YRS OR MORE 11/17/2023 [facility] [place] [facility] History of tobacco use VA-TOBACCO FORMER USER 10/30/2022 [facility] [place] [facility] History of tobacco use NV-TOBACCO FORMER USER 07/31/2021 [facility] [place] [facility] History of tobacco use NV-TOBACCO FORMER USER 06/29/2020 [facility] [place] [facility] History of tobacco use NV-TOBACCO FORMER USER 02/10/2019 [facility] [place] [facility] History of tobacco use QUIT TOBACCO USE > 7 YEARS AGO 11/27/2017 [facility] [place] [facility] History of tobacco use QUIT TOBACCO USE > 7 YEARS AGO 11/05/2016 [facility] [place] [facility] History of tobacco use QUIT TOBACCO USE > 7 YEARS AGO 09/17/2015 stopped 20 years ago [facility] [place] [facility] History of tobacco use HISTORY OF SMOKING 02/24/2005 [facility] [place] [facility] History of tobacco use QUIT TOBACCO USE > 7 YEARS AGO 05/28/2004 [facility] [place] [facility] History of tobacco use HISTORY OF SMOKING 11/27/2003 [facility] [place] [facility] History of tobacco use QUIT TOBACCO USE 1-7 YEARS AGO 03/15/2003 [facility] [place] [facility] History of tobacco use HISTORY OF SMOKING 08/24/2002 [facility] [place] [facility] History of tobacco use QUIT TOBACCO USE 1-7 YEARS AGO 02/11/2002 [facility] [place] [facility] History of tobacco use HISTORY OF SMOKING 05/21/2001 [facility] [place] [facility] Plan of Care List of future care activities from Department of [facility] facilities. Additional future care activities may be listed in the Assessment and Plan section. Date/Time Care Activity Care Activity Detail Facili ty 10/20/2024 AMBULATORY - MEDICINE AMBULATORY - MEDICI NE [facility] [place] [facility] 03/07/2025 AMBULATORY - MEDICINE AMBULATORY - MEDICI NE [facility] [place] [facility] 10/19/2024 Laboratory - [employer] ry Order BASIC METABOLIC PANEL (fasting) BLOOD (SST-SERUM) SP [facility] [place] [facility] 10/19/2024 Laboratory - [employer] [facility] Order LIPID PANEL FASTING BLOOD (SST-SERUM) SP [facility] 10/19/2024 Laboratory - [employer] ry Order LIVER FUNCTION BLOOD (SST-SERUM) [facility]
== END 2024-10-07 12:03 | disposition home or self-care (01) ==
PROVIDERS: PCP Internal Medicine; Visit Provider Urology
DX: C61 Malignant neoplasm of prostate (principal); N52.35 Erectile dysfunction following radiation therapy; E29.1 Testicular hypofunction
CPT/HCPCS: 99213

== ENCOUNTER → 2024-10-07 10:55 | Outpatient (BNVA) | payer MEDICARE, SELFPAY | PROVIDERS: PCP Internal Medicine; Visit Provider Urology | DX: C61 Malignant neoplasm of prostate (principal); E29.1 Testicular hypofunction; N52.35 Erectile dysfunction following radiation therapy | CPT/HCPCS: 99212 ==

== ENCOUNTER 2024-10-14 11:15 | Outpatient (AMB) | payer MEDICARE, SELFPAY ==
--- NOTE | 2024-10-14 11:26 | MHC.OFFVIS ---
Vital Signs 10/14/24 11:27 Height 5 ft 9 in Weight 190 lb BMI 28.1 BP 140/80 H Blood Pressure Location Lt brachial Position Sitting Respiration 16 Pulse 75 Pulse Source Pulse Oximeter Pulse Oximetry (%) 95 Oxygen Delivery Method Room Air Intake Visit Reasons: Discuss Sprint Denial/Alternative Options Medical Researcher Required: No Allergies sulfamethoxazole [From Bactrim] Allergy (Verified 10/14/24 11:29) Mouth sores, Stomach pains trimethoprim [From Bactrim] Allergy (Verified 10/14/24 11:29) Mouth sores, Stomach pains Sulfa (Sulfonamide Antibiotics) Adverse Reaction (Intermediate, Verified 10/14/24 11:29) MOUTH SORES, RASH Medication List - Last Reconciled 10/14/24 by Aurelia Wu LPN amlodipine 10 mg PO DAILY atorvastatin 20 mg PO BEDTIME carvedilol (Coreg) 6.25 mg PO BID 90 days cholecalciferol (vitamin D3) 2,000 units PO DAILY 30 days docusate sodium (Colace) 100 mg PO BID PRN multivitamin 1 tab PO DAILY naproxen 500 mg PO BID PRN 7 days testosterone 1 packet transdermal DAILY 30 days zolpidem (Ambien) 10 mg PO BEDTIME PRN HPI HPI Discuss Sprint Denial/Alternative Options: Details: The patient is a 78-year-old male presenting with chronic back pain. He has suffered from mid back pain for several years, which has been resistant to numerous treatments including physical therapy, chiropractic interventions, and back injections, and has also had limited response to oral medications such as Gabapentin. A psychological screening conducted for spinal cord stimulation was completed over a year ago but the patient chose not to proceed with that therapy. Currently, insurance demands a new psychological evaluation for trial of peripheral nerve stimulation of lumbar medial branches for axial LBP secondary to facet degeneration and multifidus dysfunction. Pain Description - Onset and Timing: Chronic, present for several years, more severe at night. - Quality and Character: Persistent, strong, and particularly distressing in the mid back. - Primary Location: Axial thoracic area. - Radiation: Not mentioned. - Exacerbating Factors: Sitting, nighttime rest. - Relieving Factors: Morning stretching and walking. Physical Exam - Appears afebrile. - Alert and oriented. - Mood and affect appropriate. - Follows and participates in conversation appropriately. - Respiratory effort is unlabored. - Able to transition from sit to stand unassisted. - Ambulates with bilaterally normal heel strike and toe off. - Able to stand and walk on toes and heels. - Axial LBP, with limited ROM Pain Management - Affect: The pain significantly impacts the patient's capacity to sleep and relax, affecting his psychological well-being. - Analgesia: Historical use of Gabapentin; additional treatments including physical therapy and injections have provided limited relief. - Adverse Effects: Not explicitly mentioned. - Activities of Daily Living: Daily life and sleep seem significantly affected; relief is partially observed after morning routines. - Aberrant Drug Related Behaviors: No aberrant behaviors reported. [facility] Medical History HTN (hypertension) BPH (benign prostatic hyperplasia) Encounter to establish care Erectile dysfunction due to arterial insufficiency Fracture, thoracic vertebra, compression Lumbar degenerative disc disease Essential hypertension Ascending aortic aneurysm Annual physical exam Normal colonoscopy Prostate CA Allergic rhinitis Polycythemia Hyperlipidemia Hearing problem Insomnia Hypogonadism male Osteoporosis Surgical History Hx of transurethral resection of prostate Hx of cystoscopy History of esophagogastroduodenoscopy (EGD) Hx of appendectomy History of repair of hiatal hernia Hx of hernia repair History of colon resection Hx of nasal septoplasty Hx of colonoscopy Family History Father Alzheimer disease Colon cancer Colon polyps Mother No problems noted. Other Mental health disorder Social History Housing: House Alcohol intake: current Alcohol intake frequency: holidays/special occasions only Patient Tobacco Use Status: Former Tobacco user e-Cigarette/Vaping Use: Never Used Second Hand Smoke Exposure: No service: Yes Current occupational status: employed and retired Current occupational exposures/hazards: No Cognitive needs: No Hearing needs: Yes Vision needs: No Physical Exam Vital Signs: Last Vital Signs Pulse 75 10/14/24 11:27 Resp 16 10/14/24 11:27 BP 140/80 H 10/14/24 11:27 Pulse Ox 95 10/14/24 11:27 Oxygen Delivery Method Room Air 10/14/24 11:27 BMI result Body Mass Index 28.1 Assessment & Plan Assessment & Plan (1) Lumbar spondylosis: Code(s): M47.816 - Spondylosis without myelopathy or radiculopathy, lumbar region Category: Medical (2) Vertebrogenic low back pain: Code(s): M54.51 - Vertebrogenic low back pain Category: Medical (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 Prior conservative management has been comprehensive but largely ineffective, guiding us toward this potential therapy. [facility] with [facility] for [facility] will be sought to resubmit the request for authorization. Current pain management strategies should continue to be optimized as feasible until the new intervention becomes available. Patient was informed and verbally consented to the use of an ambient scribe for clinic note documentation during this visit. Discussion Notes I discussed with the patient the requirement for a current psychological evaluation to assess candidacy for peripheral nerve stimulation, a treatment deemed promising contingent upon insurance clearance. The patient expressed understanding and willingness to pursue this evaluation through the [facility]. The conversation included acknowledgment of prior efforts, including physical therapies and various interventions that have thus far yielded limited relief. The patient was advised on the procedural aspects and consulted on his preference and consent for reevaluating this therapeutic pathway. Patient Instructions - Arrange for a psychological evaluation through the [facility] as soon as possible. - Continue current pain management strategies, including any prescribed medications, and continue stretches and morning activities that alleviate pain. - Follow up for results of the psychological evaluation and further recommendations on treatment continuation or modification. Coding Level of Care Code Est Pt Level 4 (85216) Diagnoses Lumbar spondylosis M47.816 Vertebrogenic low back pain M54.51 Dysfunction of the multifidus muscle of lumbar region M62.85
[2024-10-14 11:27] VITALS: BP 140/80; PULSE 75; RESP 16; O2SAT 95; BMI 28.1
--- OUTSIDE RECORDS SUMMARY | 2024-10-14 13:15 | XMS_ITS | Patient Health Record ---
Author Organization [facility] Address [address] [place] [id number] Care Team Providers Care School Occupational Therapist Name Role Phone Cesilia Anguiano Primary Care Provider Unav ailRenato Moss Unavailable [phone] ALLERGIES Allergen (clinical drug ingredient) Drug/Non Drug Allergy documented on EMR Reaction Allergy Type Onset Date Status erythromycin Erythromycin Unknown Drug Allergy A ctive Sulfa MOUTH SORES/RASH Drug Allergy Active Bactrim Unknown Drug Allergy Active Augmentin Unknown Drug Allergy Active REASON FOR [...] malignant neoplasm of colon (Z12.11) Active confirmed 169874418 Problem History of adenomatous polyp of colon (Z86.010) Active confirmed 363146291 Problem Irritable bowel syndrome without diarrhea (K58.9) Active confirmed 50605561 Problem Diverticulosis (K57.90) Active confirmed 480892388 Problem Preprocedural examination (Z01.818) Active confirmed 904930781157544 Problem History of colon polyps (Z86.010) Active confirmed History of polyp of colon (792288468) Problem Family history of colon cancer (Z80.0) Active confirmed 096395070 Problem Change in bowel function (R19.4) Active confirmed 07434578 Problem Diarrhea, unspecified type (R19.7) Active confirmed 86075954 Problem Diverticulosis of colon (K57.30) Active confirmed Diverticulosi s of colon (527227089) Problem LLQ abdominal pain (R10.32) Active confirmed 855995992 PLAN OF TREATMENT Pending Test Test Name [...] Insured Coverage Start Date Coverage End Date [facility] [address] [place] [phone] [id number] HANH COELHO Self - patient is the insured MEDICAL (GENERAL) HISTORY Medical History History ICD Code HTN Denies HI,DM,CVA,renal disease Diverticulitis with surgery as below Hyperlipidemia BPH Neg colonoscopy with Dr. Nain taylor in 05/2012--previous polyps removed at the [facility] EGD's in [place] prior to the [facility] in 05/2013 and 11/2015 fercho wed only diverticulosis and renal cysts--he has also had negative abdominal ultrasound and MRIs ? [place]---sees Dr. Gallagher-had phleb otomy--presently inactive Prostate cancer--finished XRT in 09/2015 Pleural effusion on the left -2014--saw Dr. Worthy at [facility]--had CT scans and a thoracentesis--no cancer--being followed Negative colonoscopy in March of 2016 Kidney stones EGD in 2016 was normal except for minima l gastritis-bx neg for Hpylori Surgical History Surgery Date(Month/Year) Hiatal hernia repair by Dr. Cartagena 2008 Appendectomy 1969' Sigmoid diverticulitis with lap. resecti on by Dr. Cartagena 2006 Laser prostate surgery for BPH with Dr. Rashaad FLEMING 07/27/2013
--- OUTSIDE RECORDS SUMMARY | 2024-10-14 13:15 | XMS_ITS ---
Author Name [facility] [place] [facility] [place] [facility] [place] Address [address] [place] [address] Care Team Providers Care Platen Builder Up Name Role Phone APOORVA LEE Primary Care [...] [place] MEDICARE ADVANTAGE MCR ([facility]) Apr 17, 2013 [id number] [phone] Lauren COELHO PATIENT HEALTH [place] ([place] MEDICARE ADVANTAGE MCR ([facility]) Apr 17, 2013 [id number] Lauren COELHO PATIENT Selected Encounter This section includes the information on record at [place] for the Encounter. Date/Time Encounter Type Encounter Description Reason Provider Source Oct 07, 2024 12:36 PM NQHP OL DIG ASSMT&MGMT 5-10 CLINICAL PHARMACY ICD-10-CM E29.1 Testicular hypofunction [facility] JUNIOR [facility] Encounter Template Text not used by [place] Assessments - Encounter Diagnoses This section includes the primary and secondary diagnoses documented for the Encounter. Date/Time Primary/Secondary Diagnosis Diagnosis Name Provider Source Oct 07, 2024 12:37 PM PRIMARY Testicular hypofunction PETE JUNIOR A [facility] Plan of Treatment: Future Appointments (+ 6 months) and Future Tests (+/- 45 days) The Plan of Treatment section includes future care activities for the patient from all [place] treatmentfacilities. This section includes future appointments and [...] 20, 2024 11:30 AM AMBULATORY - MEDICINE [facility] Mar 07, 2025 02:00 PM AMBULATORY - MEDICINE [facility] Lab Results: +/- 30 days of the encounter This section includes the Chemistry and Hematology Lab Results on record with [place] for the patient. Radiology Reports and Pathology Reports are provided separately, in subsequent sections. Lab Results This section contains the Chemistry/Hematology Results that were resulted 30 days before or 30 daysafter the date of the Encounter. Date/Time Source Result Type Result - Unit Interpretation Reference Range Comment Oct 14, 2024 10:04 AM [facility] LIPID PANEL FASTING Specimen Type: SERUM No comment entered. Ordering Provider: ROCKY LEE Report Released Date/Time: Jun 21, 2024 02:06 PM Reporting Lab: [facility] [address] [facility] [address] Performing Lab: [facility] [address] [facility] [address] CHOLESTEROL 161 mg/dL TRIGLYCERIDE 99 mg/dL 0-150 LDL calculated 95 mg/dL 0-129 CHOL/HDL 3.5 HDL CHOLESTEROL 46 mg/dL 40-60 Oct 14, 2024 10:04 AM [facility] LIVER FUNCTION Specimen Type: SERUM No comment entered. Ordering Provider: ROCKY LEE Report Released Date/Time: Jun 21, 2024 02:06 PM Reporting Lab: [facility] [address] [facility] [address] Performing Lab: [address] [address] PROTEIN,TOTAL 7.2 g/dL 6.0-8.3 ALBUMIN 4.1 g/dL 3.5-5.0 ALKALINE PHOSPHATASE 64 U/L 40-150 AST 19 U/L 5-34 ALT 26 U/L BILIRUBIN, TOTAL 0.7 mg/dL 0.2-1.2 Oct 14, 2024 10:04 AM [facility] BASIC METABOLIC PANEL (fasting) Specimen Type: SERUM No comment entered. Ordering Provider: ROCKY LEE Report Released Date/Time: Jun 21, 2024 02:06 PM Reporting Lab: [address] [address] Performing Lab: [address] [address] UREA NITROGEN 15 mg/dL 7-25 GLUCOSE 110 mg/dL H 65-100 SODIUM 139 mmol/L 135-145 POTASSIUM 4.1 mmol/L 3.5-5.0 CHLORIDE 107 mmol/L 100-110 CO2 23 meq/L 20-30 CALCIUM 9.5 mg/dL 8.5-10.2 CREATININE, Serum 0.68 mg/dL 0.50-1.40 eGFR(CKD-EPI 2020) >90 mL/min >60 [...] 17, 2023 11:30 AM VA-TOBACCO FORMER USER [facility] Tobacco Use History This section includes a history of the smoking, or tobacco-related health factors, that were collected on or before the date of the Encounter. The data comes from the [place] facility where the Encounter took place. Date/Time Smoking Status/Tobac co Use Comment Facility Nov 17, 2023 11:30 AM VA-TOBACCO QUIT 15 YRS OR MORE [facility] Oct 30, 2022 03:20 PM VA-TOBACCO FORMER USER [facility] Oct 30, 2022 03:20 PM VA-TOBACCO QUIT 15 YRS OR MORE [facility] [place] Jul 31, 2021 09:41 AM VA-TOBACCO FORMER USER [facility] [place] [facility] Jul 31, 2021 09:41 AM VA-TOBACCO QUIT 15 YRS OR MORE [facility] [place] [facility] Jun 29, 2020 11:00 AM VA-TOBACCO FORMER USER [facility] [place] [facility] Jun 29, 2020 11:00 AM VA-TOBACCO QUIT 15 YRS OR MORE [facility] [place] Feb 10, 2019 10:14 AM VA-TOBACCO FORMER USER [facility] [place] Feb 10, 2019 10:14 AM VA-TOBACCO QUIT 15 YRS OR MORE [facility] [place] [facility] Nov 27, 2017 11:12 AM QUIT TOBACCO USE > 7 YEARS AGO [facility] [place] Nov 05, 2016 11:01 AM QUIT TOBACCO USE > 7 YEARS AGO [facility] Sep 17, 2015 01:03 PM QUIT TOBACCO USE > 7 YEARS AGO stopped 20 years ago [facility] [place] [facility] Feb 24, 2005 10:09 AM HISTORY OF SMOKING [facility] [place] [facility] May 28, 2004 08:08 AM QUIT TOBACCO USE > 7 YEARS AGO [facility] [place] [facility] Nov 27, 2003 01:12 PM HISTORY OF SMOKING [facility] [place] [facility] Mar 15, 2003 02:03 PM QUIT TOBACCO USE 1-7 YEARS AGO [facility] [place] [facility] Aug 24, 2002 11:07 AM HISTORY OF SMOKING [facility] [place] [facility] Feb 11, 2002 11:35 AM QUIT TOBACCO USE 1-7 YEARS AGO [facility] May 21, 2001 01:11 PM HISTORY OF SMOKING quit 5 years ago [facility] Encounter Notes: All associated encounter notes This section contains the clinical notes associated to the Encounter. Date/Time Encounter Note(s) Provider Source Oct 07, 2024 02:21 PM ADDENDUM: LOCAL TITLE: Addendum STANDARD TITLE: ADDENDUM DATE OF NOTE: OCT 07, 2024@14:21:21 ENTRY DATE: OCT 07, 2024@14:21:22 AUTHOR: YOLY GONZALES EXP COSIGNER: URGENCY: STATUS: COMPLETED Last referral and Rx from 2022, PCP to advise. /rajesh/ YOLY GONZALES RN REGISTERED NURSE Signed: 10/07/2024 14:22 Receipt Acknowledged By: 10/09/2024 07:55 /rajesh/ Apoorva Lee PA-C STAFF PHYSICIAN LAY UPS ASSEMBLER ====== --- Original Document --- 10/07/24 [facility] PRESCRIPTION NOTE: Pharmacy has received a [facility] prescription. The prescription below CANNOT BE FILLED due to the absence of an active consult. (Consult ) PRESCRIPTIONS HAVE BEEN DISPOSED OF APPROPRIATELY BASED ON ROUTE RECEIVED, FOLLOWING LOCAL AND FEDERAL GUIDELINES. IF PRESCRIPTION IS NEEDED, PLEASE CONTACT PROVIDER/OFFICE LISTED. PHARMACY NO LONGER HAS PRESCRIPTION(S) AND ARE UNABLE TO PROVIDE. eRx Drug: testosterone 1 % (50 mg/5 gram) transdermal gel packet [C-III] NDC: [id number] Written Date: OCT 07, 2024@16:59:21 Qty: 150 Days Supply: 30 Refills: 5 eRx Si packet transdermally daily for 30 days Apply to shoulder and rub in until dry Provider Comments: mail to patient NName: REMY SHELBY [facility] Clinic: [facility] Address: [address] [place] [address] [place]: [id number] State Lic: [id number] Primary Phone: [phone] Fax: [phone] Please re-write the above prescription for the [place] OR input a new consult. IF A NEW CONSULT IS PLACED PLEASE: 1. Reach out to the [place] to have them get a new prescription, OR 2. Call the community care provider's office directly for them to resend Thank you /rajesh/ ARTUR JUNIOR PHARMD. [facility] Clinical Pharmacist Signed: 10/07/2024 12:37 Receipt Acknowledged By: 10/07/2024 14:24 /rajesh/ YOLY GONZALES, RN REGISTERED NURSE * AWAITING SIGNATURE * APOORVA LEE LAUREN M [place] [facility] [place] [facility] Oct 07, 2024 12:36 PM PHARMACY OUTPATIEN T MEDICATION MGT NOTE: LOCAL TITLE: [facility] PRESCRIPTION NOTE STANDARD TITLE: PHARMACY OUTPATIENT MEDICATION MGT NOTE DATE OF NOTE: OCT 07, 2024@12:36 ENTRY DATE: OCT 07, 2024@12:36:12 AUTHOR: ARTUR JUNIOR EXP COSIGNER: URGENCY: STATUS: COMPLETED [facility] PRESCRIPTION NOTE Has ADDENDA Pharmacy has received a [facility] prescription. The prescription below CANNOT BE FILLED due to the absence of an active consult. (Consult ) PRESCRIPTIONS HAVE BEEN DISPOSED OF APPROPRIATELY BASED ON ROUTE RECEIVED, FOLLOWING LOCAL AND FEDERAL GUIDELINES. IF PRESCRIPTION IS NEEDED, PLEASE CONTACT PROVIDER/OFFICE LISTED. PHARMACY NO LONGER HAS PRESCRIPTION(S) AND ARE UNABLE TO PROVIDE. eRx Drug: testosterone 1 % (50 mg/5 gram) transdermal gel packet [C-III] [facility]: [id number] Written Date: OCT 07, 2024@16:59:21 Qty: 150 Days Supply: 30 Refills: 5 eRx Si packet transdermally daily for 30 days Apply to shoulder and rub in until dry Provider Comments: mail to patient NNkatherine: REMY SHELBY [facility] Clinic: [facility] Address: [address] [place] [id number] [place]: [id number] [facility] [id number] Primary Phone: [phone] Fax: [phone] Please re-write the above prescription for the [place] input a new consult. IF A NEW CONSULT IS PLACED PLEASE: 1. Reach out to the [place] to have them get a new prescription, OR 2. Call the community care provider's office directly for them to resend Thank you /rajesh/ ARTUR JUNIOR PHARMD. [facility] Clinical Pharmacist Signed: 10/07/2024 12:37 Receipt Acknowledged By: 10/07/2024 14:24 /yenny GONZALES RN REGISTERED NURSE 10/09/2024 07:56 /rajesh/ Apoorva Lee PA-C STAFF PHYSICIAN LAY UPS ASSEMBLER 10/07/2024 ADDENDUM STATUS: COMPLETED Last referral and Rx from 2022, PCP to advise. /yenny GONZALES RN REGISTERED NURSE Signed: 10/07/2024 14:22 Receipt Acknowledged By: 10/09/2024 07:55 /yenny Lee PA-C STAFF PHYSICIAN LAY UPS ASSEMBLER ARTUR JUNIOR [place] [facility]
--- OUTSIDE RECORDS SUMMARY | 2024-10-14 13:15 | XMS_ITS | Continuity of Care Document ---
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 [facility] Exposure to potentially hazardous substance Active Condition Oct 14, 2023 Entered By: ANALY SOW Comment: Connect Snomed Code to ICD 10 Code refer to note dated 07/20/23 [facility] former smoker Active Condition [facility] [...] MORENO Comment: TUR 10/2101 [facility]. [facility] Hypogonadism Active Condition [facility] Impaired FASTING Glucose (ICD-9-CM 790.21) Active Condition [facility] Insomnia * (ICD-9-CM 780.52) Active Condition [facility] Sciatica Active Condition [facility] Thoracic aortic aneurysm without rupture Active Condition Jun 14, 2024 Entered By: RADHA MORENO Comment: Followed by [facility]. [facility] Tinnitus * (ICD-9-CM 388.30) Active Condition [facility] TINNITUS NOS Active Condition [facility] H. Pylori therapy 1997 Inactive Condition 07/11/2013 [facility] Hiatal Hernia Inactive Condition 01/13/2012 December 162011 Entered By: RADHA MORENO Comment: lap surgery about 2005 was curative. 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, left eye, mild stage Active Diagnosis [facility] Diagnosis: ICD-10-CM M47.26 Other spondylosis with radiculopathy, lumbar region Active Diagnosis [facility] Diagnosis: ICD-10-CM M47.896 Other spondylosis, lumbar region Active Diagnosis [facility] Diagnosis: ICD-10-CM 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 Medication Details Route Status Patient Instructions Prescription Expires Prescription Number Last Dispense Date Ordering Provider Order Date Order Qty Source ALBUTEROL 90MCG/ACTUA T (CFC-F) INHL,ORAL,8 .5GM DOSE COUNTER INHALE 1 PUFF BY MOUTH TWICE DAILY NEEDED FOR BRONCHOS PASM PREVENTI ON RESPIR ATORY (INHAL ATION) ACTIVE 11/17/2024 [id number] 4 AP[facility]ORENO 20[facility] AMLODIPINE BESYLATE 10MG TAB TAKE ONE TABLET BY MOUTH ONCE DAILY FOR BLOOD PRESSURE /HEART, DO NOT TAKE WITH GRAPEFRU IT JUICE ORAL SUSPEND ED 06/22/2025 [id number] 5 APOORVA MORENO 2023 90 [facility] [employer] [facility] [employer] [employer] AMLODIPINE BESYLATE 10MG TAB TAKE ONE TABLET BY MOUTH ONCE DAILY FOR BLOOD PRESSURE /HEART, DO NOT TAKE WITH GRAPEFRU IT JUICE ORAL DISCONT INUED (EDIT) 02/19/2025 [id number] 4 APOORVA MORENO 2023 30 [facility] AMLODIPINE BESYLATE 10MG TAB TAKE ONE TABLET BY MOUTH ONCE DAILY FOR BLOOD PRESSURE /HEART, DO NOT TAKE WITH GRAPEFRU IT JUICE ORAL DISCONT INUED (EDIT) 07/20/2024 [id number] 4 APOORVA MORENO 2022 30 [facility] [place] [facility] AMLODIPINE BESYLATE 2.5MG TAB TAKE THREE TABLETS BY MOUTH ONCE DAILY FOR BLOOD PRESSURE /HEART, DO NOT TAKE WITH GRAPEFRU IT JUICE ORAL DISCONT INUED (EDIT) 11/17/2024 [id number] 4 APOORVA MORENO 2023 90 [facility] ASPIRIN 81MG TAB,EC TAKE ONE TABLET BY MOUTH DAILY ORAL ACTIVE APOORVA MORENO 2013 [facility] ATORVASTATI N CA 40MG TAB TAKE ONE-HALF TABLET BY MOUTH ONCE DAILY FOR CHOLESTE ROL REPLACES SIMVASTA TIN. ORAL SUSPEND ED 02/19/2025 [id number] 5 APOORVA MORENO 2023 45 [facility] [place] ATORVASTATI N CA 40MG TAB TAKE ONE-HALF TABLET BY MOUTH ONCE DAILY FOR CHOLESTE ROL REPLACES SIMVASTA TIN. ORAL DISCONT INUED 07/20/2024 [id number] 4 APOORVA MORENO 2022 45 [employer] [facility] [facility] CARBOXYMETH YLCELLULOSE NA 0.5% SOLN,OPH INSTILL 1 DROP INTO EACH EYE FOUR TIMES DAILY NEEDED FOR DRY EYE OPHTHA LMIC ACTIVE 08/13/2025 [id number] 4 Samaria ESTRADA 2023 15 [facility] [place] [facility] CARVEDILOL 12.5MG TAB TAKE ONE TABLET BY MOUTH TWICE DAILY FOR HIGH BLOOD PRESSURE ORAL ACTIVE 06/22/2025 [id number] 5 APOORVA MORENO 2023 180 [facility] [place] DICLOFENAC NA 1% GEL,TOP APPLY 4 GRAMS TOPICALL Y THREE TIMES DAILY NEEDED FOR OSTEOART HRITIS - USE DOSING CARD PROVIDED IN BOX TOPICA L 01/14/2024 [id number] 4 RAOUL HOPKINS 2023 300 [facility] LATANOPROST 0.005% SOLN,OPH INSTILL 1 DROP INTO THE LEFT EYE AT BEDTIME TO REDUCE PRESSURE IN THE EYE OPHTHA LMIC ACTIVE 05/05/2025 [id number] 4 Samaria ESTRADA NDREW E 2023 7.5 [facility] LATANOPROST 0.005% SOLN,OPH INSTILL 1 DROP INTO THE LEFT EYE AT BEDTIME TO REDUCE PRESSURE IN THE EYE OPHTHA LMIC DISCONT INUED 02/14/2024 [id number] 4 Samaria ESTRADA NDREW E 2022 5 [facility] TESTOSTERON E (EQV-ANDROG EL) 1% 5GM/PKT GEL,TOP APPLY 1 PACKET TOPICALL Y ONCE DAILY TO SHOULDER . RUB IN UNTIL DRY, THEN WASH HANDS WITH SOAP AND WATER TOPICA L ACTIVE 12/22/2024 [id number] 5 APOORVA MORENO 2023 30 [facility] TESTOSTERON E (EQV-ANDROG EL) 1% 5GM/PKT GEL,TOP APPLY 1 PACKET TOPICALL Y ONCE DAILY TO SHOULDER . RUB IN UNTIL DRY, THEN WASH HANDS WITH SOAP AND WATER TOPICA L DISCONT INUED 03/20/2024 [id number] SUSI ALBERTO MD 2023 30 [facility] [place] ZOLPIDEM TARTRATE 10MG TAB TAKE ONE TABLET BY MOUTH AT BEDTIME FOR SLEEP ORAL ACTIVE 11/05/2024 [id number] 5 APOORVA MORENO 2023 30 [place] ZOLPIDEM TARTRATE 10MG TAB TAKE ONE TABLET BY MOUTH AT BEDTIME NEEDED FOR SLEEP ORAL DISCONT INUED 11/11/2023 [id number] 4 APOORVA MORENO 2022 30 [facility] ZOLPIDEM TARTRATE 10MG TAB TAKE ONE TABLET BY MOUTH AT BEDTIME FOR SLEEP ORAL 04/22/2024 [id number] 4 APOORVA MORENO 2023 30 [facility] Allergies, Adverse Reactions, Alerts Combined list of allergies from Department of Defense and Veterans Affairs facilities. It does not include entries that were removed or entered in error. Substance Category Reaction Severity Reaction type Status Date Reported Comments Source AUGMENTIN Propensity to adverse reactions to drug (finding) Abdominal pain active 1 [facility] SULFONAMIDE/ RELATED ANTIMICROBIA LS Propensity to adverse reactions to drug (finding) HIVES [facility] Immunizations Combined list of available immunizations from the Department of Defense and Veterans Affairs facilities. Immunization Series Date Given Administered By Site Reaction Lot Number CVX Code Drug Scheduler Conveyor Status Comments Source COVID-19 (MODERNA), MRNA, LNP-S, PF, 50 MCG/0.5 ML (AGES 12+ YEARS) 2023 CLARA JULIO LEFT DELTO ID [id number] 312 complet ed [facility] INFLUENZA, HIGH-DOSE, TRIVALENT, PF 2023 CLARA JULIO LEFT DELTO ID [id number] 135 [facility] INFLUENZA, HIGH-DOSE, QUADRIVALENT 2022 CHARLY CARY E LEFT DELTO ID [id number] 197 [facility] COVID-19 (MODERNA), MRNA, LNP-S, PF, 50 MCG/0.5 ML (AGES 12+ YEARS) 4 2022 LEFT DELTO ID 312 complet ed [employer] Lot#: [id number] Mfr: [employer] [facility] INFLUENZA VACCINE, QUADRIVALENT, ADJUVANTED 2021 205 complet ed [facility] COVID-19 (MODERNA), MRNA, LNP-S, PF, 100 MCG/0.5ML DOSE OR 50 MCG/0.25ML DOSE 3 2020 207 complet ed [facility] COVID-19 (MODERNA), MRNA, LNP-S, PF, 100 [...] TD(ADULT) UNSPECIFIED FORMULATION 2014 139 complet ed [facility] ED. Probably TD. after a dogbite. [...] CHOLESTEROL [MASS/VOLUM E] IN SERUM OR PLASMA 161 mg/dL 10/14 Specimen Type: SERUM No comment entered. Ordering Provider: Jimena MORENO Report Released Date/Time: Jun 21, 2024 02:06 PM Reporting Lab: [facility] [place] [facility] [address] [address] Performing Lab: [facility] [place] [facility] [address] [address] [facility] LIPID PANEL FASTING TRIGLYCERID E [MASS/VOLUM E] IN SERUM OR PLASMA 99 mg/dL 0 - 150 10/14 Specimen Type: SERUM No comment entered. Ordering Provider: Jimena MORENO Report Released Date/Time: Jun 21, 2024 02:06 PM Reporting Lab: [facility] [place] [facility] [address] [address] Performing Lab: [facility] [place] [facility] [address] [address] [facility] LIPID PANEL FASTING CHOLESTEROL IN LDL [MASS/VOLUM E] IN SERUM OR PLASMA BY CALCULATION 95 mg/dL 0 - 129 10/14 Specimen Type: SERUM No comment entered. Ordering Provider: Jimena MORENO Report Released Date/Time: Jun 21, 2024 02:06 PM Reporting Lab: [facility] [place] [facility] [address] [address] Performing Lab: [facility] [address] [address] [facility] LIPID PANEL FASTING CHOLESTEROL .TOTAL/CHOL ESTEROL IN HDL [MASS RATIO] IN SERUM OR PLASMA 3.5 10/14 Specimen Type: SERUM No comment entered. Ordering Provider: Jimena MORENO Report Released Date/Time: Jun 21, 2024 02:06 PM Reporting Lab: [facility] [address] Performing Lab: [facility] [address] [facility] LIPID PANEL FASTING CHOLESTEROL IN HDL [MASS/VOLUM E] IN SERUM OR PLASMA 46 mg/dL 40 - 60 10/14 Specimen Type: SERUM No comment entered. Ordering Provider: Jimena MORENO Report Released Date/Time: Jun 21, 2024 02:06 PM Reporting Lab: [place] [facility] [place] [address] [address] Performing Lab: [facility] [address] [address] [facility] LIVER FUNCTION PROTEIN [MASS/VOLUM E] IN SERUM OR PLASMA 7.2 g/dL 6.0 - 8.3 10/14 Specimen Type: SERUM No comment entered. Ordering Provider: Jimena MORENO Report Released Date/Time: Jun 21, 2024 02:06 PM Reporting Lab: [facility] [address] Performing Lab: [facility] [address] [facility] [place] [facility] LIVER FUNCTION ALBUMIN [MASS/VOLUM E] IN SERUM OR PLASMA 4.1 g/dL 3.5 - 5.0 10/14 Specimen Type: SERUM No comment entered. Ordering Provider: Jimena MORENO Report Released Date/Time: Jun 21, 2024 02:06 PM Reporting Lab: [facility] [place] [facility] [address] [address] Performing Lab: [facility] [place] [facility] [address] [address] [facility] [place] [facility] LIVER FUNCTION ALKALINE PHOSPHATASE [ENZYMATIC ACTIVITY/VO LUME] IN SERUM OR PLASMA 64 U/L 40 - 150 10/14 Specimen Type: SERUM No comment entered. Ordering Provider: Jimena MORENO Report Released Date/Time: Jun 21, 2024 02:06 PM Reporting Lab: [facility] [place] [facility] [address] [address] Performing Lab: [facility] [place] [facility] [address] [address] [facility] [place] [facility] LIVER FUNCTION ASPARTATE AMINOTRANSF ERASE [ENZYMATIC ACTIVITY/VO LUME] IN SERUM OR PLASMA 19 U/L 5 - 34 10/14 Specimen Type: SERUM No comment entered. Ordering Provider: Jimena MORENO Report Released Date/Time: Jun 21, 2024 02:06 PM Reporting Lab: [facility] [place] [facility] [address] [address] Performing Lab: [facility] [place] [facility] [address] [address] [facility] [place] [facility] LIVER FUNCTION ALANINE AMINOTRANSF ERASE [ENZYMATIC ACTIVITY/VO LUME] IN SERUM OR PLASMA 26 U/L 10/14 Specimen Type: SERUM No comment entered. Ordering Provider: Jimena MORENO Report Released Date/Time: Jun 21, 2024 02:06 PM Reporting Lab: [facility] [place] [facility] [address] [address] Performing Lab: [facility] [place] [facility] [address] [address] [facility] LIVER FUNCTION BILIRUBIN.T OTAL [MASS/VOLUM E] IN SERUM OR PLASMA 0.7 mg/dL 0.2 - 1.2 10/14 Specimen Type: SERUM No comment entered. Ordering Provider: Jimena MORENO Report Released Date/Time: Jun 21, 2024 02:06 PM Reporting Lab: [facility] [place] [facility] [address] [address] Performing Lab: [facility] [address] [address] [facility] BASIC METABOLIC PANEL (fasting) UREA NITROGEN [MASS/VOLUM E] IN SERUM OR PLASMA 15 mg/dL 7 - 25 10/14 Specimen Type: SERUM No comment entered. Ordering Provider: Jimena MORENO Report Released Date/Time: Jun 21, 2024 02:06 PM Reporting Lab: [facility] [place] [facility] [address] [address] Performing Lab: [facility] [address] [address] [facility] BASIC METABOLIC PANEL (fasting) GLUCOSE [MASS/VOLUM E] IN SERUM OR PLASMA 110 mg/dL 65 - 100 10/14 H Specimen Type: SERUM No comment entered. Ordering Provider: Jimena MORENO Report Released Date/Time: Jun 21, 2024 02:06 PM Reporting Lab: [facility] [place] [facility] [address] [address] Performing Lab: [facility] [address] [address] [facility] BASIC METABOLIC PANEL (fasting) SODIUM [MOLES/VOLU ME] IN SERUM OR PLASMA 139 mmol/L 135 - 145 10/14 Specimen Type: SERUM No comment entered. Ordering Provider: Jimena MORENO Report Released Date/Time: Jun 21, 2024 02:06 PM Reporting Lab: [facility] [place] [facility] [address] [address] Performing Lab: [facility] [place] [facility] [address] [address] [facility] [place] [facility] BASIC METABOLIC PANEL (fasting) POTASSIUM [MOLES/VOLU ME] IN SERUM OR PLASMA 4.1 mmol/L 3.5 - 5.0 10/14 Specimen Type: SERUM No comment entered. Ordering Provider: Jimena MORENO Report Released Date/Time: Jun 21, 2024 02:06 PM Reporting Lab: [facility] [place] [facility] [address] [address] Performing Lab: [facility] [place] [facility] [address] [address] [facility] [place] [facility] BASIC METABOLIC PANEL (fasting) CHLORIDE [MOLES/VOLU ME] IN SERUM OR PLASMA 107 mmol/L 100 - 110 10/14 Specimen Type: SERUM No comment entered. Ordering Provider: Jimena MORENO Report Released Date/Time: Jun 21, 2024 02:06 PM Reporting Lab: [facility] [place] [facility] [address] [address] Performing Lab: [facility] [place] [facility] [address] [address] [facility] [place] [facility] BASIC METABOLIC PANEL (fasting) CARBON DIOXIDE, TOTAL [MOLES/VOLU ME] IN SERUM OR PLASMA 23 meq/L 20 - 30 10/14 Specimen Type: SERUM No comment entered. Ordering Provider: Jimena MORENO Report Released Date/Time: Jun 21, 2024 02:06 PM Reporting Lab: [facility] [place] [facility] [address] [address] Performing Lab: [facility] [place] [facility] [address] [facility] [address] [facility] [place] [facility] BASIC METABOLIC PANEL (fasting) CALCIUM [MASS/VOLUM E] IN SERUM OR PLASMA 9.5 mg/dL 8.5 - 10.2 10/14 Specimen Type: SERUM No comment entered. Ordering Provider: Jimena MORENO Report Released Date/Time: Jun 21, 2024 02:06 PM Reporting Lab: [facility] [place] [address] [address] Performing Lab: [facility] [address] [address] [facility] [place] [facility] BASIC METABOLIC PANEL (fasting) CREATININE [MASS/VOLUM E] IN SERUM OR PLASMA 0.68 mg/dL 0.50 - 1.40 10/14 Specimen Type: SERUM No comment entered. Ordering Provider: Jimena MORENO Report Released Date/Time: Jun 21, 2024 02:06 PM Reporting Lab: [facility] [address] Performing Lab: [facility] [address] [address] [facility] BASIC METABOLIC PANEL (fasting) GLOMERULAR FILTRATION RATE/1.73 SQ M.PREDICTED [VOLUME RATE/AREA] IN SERUM, PLASMA OR BLOOD BY CREATININE- BASED FORMULA (CKD-EPI 2020) >90mL/ min 60 10/14 Specimen Type: SERUM No comment entered. Ordering Provider: Jimena MORENO Report Released Date/Time: Jun 21, 2024 02:06 PM Reporting Lab: [place] [facility] [place] [address] [address] Performing Lab: [facility] [address] [address] [facility] LIPID PANEL FASTING CHOLESTEROL [MASS/VOLUM E] IN SERUM OR PLASMA 166 mg/dL 06/14 Specimen Type: SERUM No comment entered. Ordering Provider: Jimena MORENO Report Released Date/Time: Jun 08, 2024 11:04 AM Reporting Lab: [facility] [place] [address] [address] Performing Lab: [place] [facility] [place] [facility] [address] [facility] [address] [facility] [place] [facility] LIPID PANEL FASTING TRIGLYCERID E [MASS/VOLUM E] IN SERUM OR PLASMA 71 mg/dL 0 - 150 06/14 Specimen Type: SERUM No comment entered. Ordering Provider: Jimena MORENO Report Released Date/Time: Jun 08, 2024 11:04 AM Reporting Lab: [facility] [place] [facility] [address] [facility] [address] Performing Lab: [facility] [place] [facility] [address] [facility] [address] [facility] LIPID PANEL FASTING CHOLESTEROL IN LDL [MASS/VOLUM E] IN SERUM OR PLASMA BY CALCULATION 95 mg/dL 0 - 129 06/14 Specimen Type: SERUM No comment entered. Ordering Provider: Jimena MORENO Report Released Date/Time: Jun 08, 2024 11:04 AM Reporting Lab: [facility] [place] [facility] [address] [facility] [address] Performing Lab: [facility] [place] [facility] [address] [facility] [address] [facility] LIPID PANEL FASTING CHOLESTEROL .TOTAL/CHOL ESTEROL IN HDL [MASS RATIO] IN SERUM OR PLASMA 2.9 06/14 Specimen Type: SERUM No comment entered. Ordering Provider: Jimena MORENO Report Released Date/Time: Jun 08, 2024 11:04 AM Reporting Lab: [facility] [place] [facility] [address] [facility] [address] Performing Lab: [facility] [place] [facility] [address] [facility] [address] [facility] [place] [facility] LIPID PANEL FASTING CHOLESTEROL IN HDL [MASS/VOLUM E] IN SERUM OR PLASMA 57 mg/dL 40 - 60 06/14 Specimen Type: SERUM No comment entered. Ordering Provider: Jimena MORENO Report Released Date/Time: Jun 08, 2024 11:04 AM Reporting Lab: [facility] [place] [facility] [address] [address] Performing Lab: [facility] [place] [facility] [address] [facility] [address] [facility] [place] [facility] LIVER FUNCTION PROTEIN [MASS/VOLUM E] IN SERUM OR PLASMA 6.8 g/dL 6.0 - 8.3 06/14 Specimen Type: SERUM No comment entered. Ordering Provider: Jimena MORENO Report Released Date/Time: Jun 08, 2024 11:04 AM Reporting Lab: [facility] [place] [facility] [address] [address] Performing Lab: [facility] [place] [facility] [address] [facility] [address] [place] [facility] [place] [place] [facility] LIVER FUNCTION ALBUMIN [MASS/VOLUM E] IN SERUM OR PLASMA 4.0 g/dL 3.5 - 5.0 06/14 Specimen Type: SERUM No comment entered. Ordering Provider: Jimena MORENO Report Released Date/Time: Jun 08, 2024 11:04 AM Reporting Lab: [facility] [place] [facility] [address] [facility] [address] Performing Lab: [facility] [place] [facility] [address] [facility] [address] [place] [facility] [place] [facility] LIVER FUNCTION ALKALINE PHOSPHATASE [ENZYMATIC ACTIVITY/VO LUME] IN SERUM OR PLASMA 63 U/L 40 - 150 06/14 Specimen Type: SERUM No comment entered. Ordering Provider: Jimena MORENO Report Released Date/Time: Jun 08, 2024 11:04 AM Reporting Lab: [facility] [place] [facility] [address] [facility] [address] Performing Lab: [facility] [place] [facility] [address] [facility] [address] [facility] [place] [facility] LIVER FUNCTION ASPARTATE AMINOTRANSF ERASE [ENZYMATIC ACTIVITY/VO LUME] IN SERUM OR PLASMA 18 U/L 5 - 34 06/14 Specimen Type: SERUM No comment entered. Ordering Provider: Jimena MORENO Report Released Date/Time: Jun 08, 2024 11:04 AM Reporting Lab: [facility] [place] [facility] [address] [facility] [address] Performing Lab: [facility] [place] [facility] [address] [facility] [facility] [address] [facility] [place] [facility] [facility] LIVER FUNCTION ALANINE AMINOTRANSF ERASE [ENZYMATIC ACTIVITY/VO LUME] IN SERUM OR PLASMA 30 U/L 06/14 Specimen Type: SERUM No comment entered. Ordering Provider: Jimena MORENO Report Released Date/Time: Jun 08, 2024 11:04 AM Reporting Lab: [facility] [place] [facility] [address] [facility] [facility] [address] Performing Lab: [facility] [place] [facility] [address] [facility] [address] [facility] [place] [facility] LIVER FUNCTION BILIRUBIN.T OTAL [MASS/VOLUM E] IN SERUM OR PLASMA 0.8 mg/dL 0.2 - 1.2 06/14 Specimen Type: SERUM No comment entered. Ordering Provider: Jimena MORENO Report Released Date/Time: Jun 08, 2024 11:04 AM Reporting Lab: [facility] [place] [facility] [address] [facility] [address] Performing Lab: [facility] [place] [facility] [address] [facility] [address] [facility] [place] [facility] BASIC METABOLIC PANEL (fasting) UREA NITROGEN [MASS/VOLUM E] IN SERUM OR PLASMA 21 mg/dL 7 - 25 06/14 Specimen Type: SERUM No comment entered. Ordering Provider: Jimena MORENO Report Released Date/Time: Jun 08, 2024 11:04 AM Reporting Lab: [facility] [place] [facility] [address] [facility] [address] Performing Lab: [facility] [place] [facility] [address] [facility] [address] [facility] [place] [facility] BASIC METABOLIC PANEL (fasting) GLUCOSE [MASS/VOLUM E] IN SERUM OR PLASMA 105 mg/dL 65 - 100 06/14 H Specimen Type: SERUM No comment entered. Ordering Provider: Jimena MORENO Report Released Date/Time: Jun 08, 2024 11:04 AM Reporting Lab: [facility] [place] [facility] [address] [facility] [address] Performing Lab: [facility] [place] [facility] [address] [facility] [address] [facility] BASIC METABOLIC PANEL (fasting) SODIUM [MOLES/VOLU ME] IN SERUM OR PLASMA 138 mmol/L 135 - 145 06/14 Specimen Type: SERUM No comment entered. Ordering Provider: Jimena MORENO Report Released Date/Time: Jun 08, 2024 11:04 AM Reporting Lab: [facility] [place] [facility] [address] [facility] [address] Performing Lab: [facility] [address] [facility] [address] [facility] BASIC METABOLIC PANEL (fasting) POTASSIUM [MOLES/VOLU ME] IN SERUM OR PLASMA 4.2 mmol/L 3.5 - 5.0 06/14 Specimen Type: SERUM No comment entered. Ordering Provider: Jimena MORENO Report Released Date/Time: Jun 08, 2024 11:04 AM Reporting Lab: [facility] [place] [facility] [address] [facility] [address] Performing Lab: [facility] [place] [facility] [address] [facility] [address] [facility] [place] [facility] BASIC METABOLIC PANEL (fasting) CHLORIDE [MOLES/VOLU ME] IN SERUM OR PLASMA 107 mmol/L 100 - 110 06/14 Specimen Type: SERUM No comment entered. Ordering Provider: Jimena MORENO Report Released Date/Time: Jun 08, 2024 11:04 AM Reporting Lab: [facility] [place] [facility] [address] [facility] [address] Performing Lab: [facility] [place] [facility] [address] [facility] [address] [facility] [place] [facility] BASIC METABOLIC PANEL (fasting) CARBON DIOXIDE, TOTAL [MOLES/VOLU ME] IN SERUM OR PLASMA 22 meq/L 20 - 30 06/14 Specimen Type: SERUM No comment entered. Ordering Provider: Jimena MORENO Report Released Date/Time: Jun 08, 2024 11:04 AM Reporting Lab: [facility] [place] [facility] [address] [facility] [address] Performing Lab: [facility] [address] [address] [facility] BASIC METABOLIC PANEL (fasting) CREATININE [MASS/VOLUM E] IN SERUM OR PLASMA 0.74 mg/dL 0.50 - 1.40 06/14 Specimen Type: SERUM No comment entered. Ordering Provider: Jimena MORENO Report Released Date/Time: Jun 08, 2024 11:04 AM Reporting Lab: [place] [facility] [place] [address] [address] Performing Lab: [facility] [address] [address] [facility] BASIC METABOLIC PANEL (fasting) GLOMERULAR FILTRATION RATE/1.73 SQ M.PREDICTED [VOLUME RATE/AREA] IN SERUM, PLASMA OR BLOOD BY CREATININE- BASED FORMULA (CKD-EPI 2020) >90mL/ min 60 06/14 Specimen Type: SERUM No comment entered. Ordering Provider: Jimena MORENO Report Released Date/Time: Jun 08, 2024 11:04 AM Reporting Lab: [facility] [place] [place] [facility] [address] [facility] [address] Performing Lab: [facility] [place] [place] [address] [address] [facility] [place] [facility] PSA PROSTATE SPECIFIC AG [MASS/VOLUM E] IN SERUM OR PLASMA 0.14 ng/mL 0.00 - 4.00 02/15 Specimen Type: SERUM No comment entered. Ordering Provider: Jimena MORENO Report Released Date/Time: Nov 17, 2023 11:49 AM Reporting Lab: [facility] [place] [facility] [address] [facility] [address] Performing Lab: [facility] [place] [facility] [address] [address] [facility] [place] [facility] LIPID PANEL FASTING CHOLESTEROL [MASS/VOLUM E] IN SERUM OR PLASMA 146 mg/dL 02/15 Specimen Type: SERUM No comment entered. Ordering Provider: Jimena MORENO Report Released Date/Time: Nov 17, 2023 11:49 AM Reporting Lab: [facility] [place] [place] [address] [address] Performing Lab: [facility] [place] [address] [address] [facility] [place] [facility] LIPID PANEL FASTING TRIGLYCERID E [MASS/VOLUM E] IN SERUM OR PLASMA 96 mg/dL 0 - 150 02/15 Specimen Type: SERUM No comment entered. Ordering Provider: Jimena MORENO Report Released Date/Time: Nov 17, 2023 11:49 AM Reporting Lab: [facility] [place] [place] [address] [address] Performing Lab: [facility] [place] [place] [address] [address] [facility] [place] [place] [facility] LIPID PANEL FASTING CHOLESTEROL IN LDL [MASS/VOLUM E] IN SERUM OR PLASMA BY CALCULATION 80 mg/dL 0 - 129 02/15 Specimen Type: SERUM No comment entered. Ordering Provider: Jimena MORENO Report Released Date/Time: Nov 17, 2023 11:49 AM Reporting Lab: [facility] [place] [place] [facility] [address] [address] Performing Lab: [facility] [place] [address] [address] [facility] [place] [facility] LIPID PANEL FASTING CHOLESTEROL .TOTAL/CHOL ESTEROL IN HDL [MASS RATIO] IN SERUM OR PLASMA 3.1 02/15 Specimen Type: SERUM No comment entered. Ordering Provider: Jimena MORENO Report Released Date/Time: Nov 17, 2023 11:49 AM Reporting Lab: [facility] [place] [facility] [address] [facility] [address] Performing Lab: [facility] [place] [facility] [address] [facility] [address] [facility] [place] [facility] LIPID PANEL FASTING CHOLESTEROL IN HDL [MASS/VOLUM E] IN SERUM OR PLASMA 47 mg/dL 40 - 60 02/15 Specimen Type: SERUM No comment entered. Ordering Provider: Jimena MORENO Report Released Date/Time: Nov 17, 2023 11:49 AM Reporting Lab: [facility] [place] [address] [address] Performing Lab: [place] [facility] [address] [address] [facility] TRN [facility] LIVER FUNCTION PROTEIN [MASS/VOLUM E] IN SERUM OR PLASMA 6.8 g/dL 6.0 - 8.3 02/15 Specimen Type: SERUM No comment entered. Ordering Provider: Jimena MORENO Report Released Date/Time: Nov 17, 2023 11:49 AM Reporting Lab: [facility] [place] [place] [facility] [address] [facility] [address] Performing Lab: [facility] [place] [facility] [address] [facility] [address] [facility] [place] [facility] LIVER FUNCTION ALBUMIN [MASS/VOLUM E] IN SERUM OR PLASMA 4.2 g/dL 3.5 - 5.0 02/15 Specimen Type: SERUM No comment entered. Ordering Provider: Jimena MORENO Report Released Date/Time: Nov 17, 2023 11:49 AM Reporting Lab: [facility] [place] [facility] [address] [facility] [address] Performing Lab: [facility] [place] [facility] [address] [facility] [address] [facility] [place] [facility] LIVER FUNCTION ALKALINE PHOSPHATASE [ENZYMATIC ACTIVITY/VO LUME] IN SERUM OR PLASMA 63 U/L 40 - 150 02/15 Specimen Type: SERUM No comment entered. Ordering Provider: Jimena MORENO Report Released Date/Time: Nov 17, 2023 11:49 AM Reporting Lab: [facility] [place] [facility] [address] [facility] [address] Performing Lab: [facility] [place] [facility] [address] [facility] [address] [facility] [place] [place] [facility] LIVER FUNCTION ASPARTATE AMINOTRANSF ERASE [ENZYMATIC ACTIVITY/VO LUME] IN SERUM OR PLASMA 25 U/L 5 - 34 02/15 Specimen Type: SERUM No comment entered. Ordering Provider: Jimena MORENO Report Released Date/Time: Nov 17, 2023 11:49 AM Reporting Lab: [facility] [place] [facility] [address] [facility] [address] Performing Lab: [facility] [place] [facility] [address] [facility] [address] [facility] [place] [place] [facility] LIVER FUNCTION ALANINE AMINOTRANSF ERASE [ENZYMATIC ACTIVITY/VO LUME] IN SERUM OR PLASMA 24 U/L 02/15 Specimen Type: SERUM No comment entered. Ordering Provider: Jimena MORENO Report Released Date/Time: Nov 17, 2023 11:49 AM Reporting Lab: [facility] [place] [facility] [address] [facility] [address] Performing Lab: [facility] [place] [facility] [address] [facility] [address] [place] [facility] [place] [place] [facility] LIVER FUNCTION BILIRUBIN.T OTAL [MASS/VOLUM E] IN SERUM OR PLASMA 1.1 mg/dL 0.2 - 1.2 02/15 Specimen Type: SERUM No comment entered. Ordering Provider: Jimena MORENO Report Released Date/Time: Nov 17, 2023 11:49 AM Reporting Lab: [facility] [place] [facility] [address] [facility] [address] Performing Lab: [facility] [place] [facility] [address] [facility] [address] [facility] [place] [facility] BASIC METABOLIC PANEL (fasting) UREA NITROGEN [MASS/VOLUM E] IN SERUM OR PLASMA 18 mg/dL 7 - 25 02/15 Specimen Type: SERUM No comment entered. Ordering Provider: Jimena MORENO Report Released Date/Time: Nov 17, 2023 11:49 AM Reporting Lab: [facility] [place] [place] [facility] [address] [facility] [address] Performing Lab: [facility] [place] [facility] [address] [facility] [address] [facility] [place] [facility] BASIC METABOLIC PANEL (fasting) GLUCOSE [MASS/VOLUM E] IN SERUM OR PLASMA 94 mg/dL 65 - 100 02/15 Specimen Type: SERUM No comment entered. Ordering Provider: Jimena MORENO Report Released Date/Time: Nov 17, 2023 11:49 AM Reporting Lab: [facility] [place] [facility] [address] [facility] [address] Performing Lab: [facility] [place] [facility] [address] [facility] [address] [facility] [place] [facility] BASIC METABOLIC PANEL (fasting) SODIUM [MOLES/VOLU ME] IN SERUM OR PLASMA 141 mmol/L 135 - 145 02/15 Specimen Type: SERUM No comment entered. Ordering Provider: Jimena MORENO Report Released Date/Time: Nov 17, 2023 11:49 AM Reporting Lab: [facility] [place] [facility] [address] [facility] [address] Performing Lab: [facility] [place] [facility] [address] [facility] [address] [facility] [place] [place] [facility] BASIC METABOLIC PANEL (fasting) POTASSIUM [MOLES/VOLU ME] IN SERUM OR PLASMA 4.1 mmol/L 3.5 - 5.0 02/15 Specimen Type: SERUM No comment entered. Ordering Provider: Jimena MORENO Report Released Date/Time: Nov 17, 2023 11:49 AM Reporting Lab: [facility] [place] [facility] [address] [facility] [address] Performing Lab: [facility] [address] [address] [facility] [place] [facility] BASIC METABOLIC PANEL (fasting) CHLORIDE [MOLES/VOLU ME] IN SERUM OR PLASMA 109 mmol/L 100 - 110 02/15 Specimen Type: SERUM No comment entered. Ordering Provider: Jimena MORENO Report Released Date/Time: Nov 17, 2023 11:49 AM Reporting Lab: [facility] [place] [address] [address] Performing Lab: [facility] [address] [address] [facility] BASIC METABOLIC PANEL (fasting) CARBON DIOXIDE, TOTAL [MOLES/VOLU ME] IN SERUM OR PLASMA 24 meq/L 20 - 30 02/15 Specimen Type: SERUM No comment entered. Ordering Provider: Jimena MORENO Report Released Date/Time: Nov 17, 2023 11:49 AM Reporting Lab: [facility] [place] [address] [address] Performing Lab: [place] [facility] [place] [address] [address] [facility] [place] [facility] BASIC METABOLIC PANEL (fasting) CREATININE [MASS/VOLUM E] IN SERUM OR PLASMA 0.77 mg/dL 0.50 - 1.40 02/15 Specimen Type: SERUM No comment entered. Ordering Provider: Jimena MORENO Report Released Date/Time: Nov 17, 2023 11:49 AM Reporting Lab: [facility] [place] [place] [address] [address] Performing Lab: [facility] [place] [address] [address] [facility] [place] [facility] BASIC METABOLIC PANEL (fasting) GLOMERULAR FILTRATION RATE/1.73 SQ M.PREDICTED [VOLUME RATE/AREA] IN SERUM, PLASMA OR BLOOD BY CREATININE- BASED FORMULA (CKD-EPI 2020) >90mL/ min 60 02/15 Specimen Type: SERUM No comment entered. Ordering Provider: Jimena MORENO Report Released Date/Time: Nov 17, 2023 11:49 AM Reporting Lab: [facility] [place] [facility] [address] [facility] [facility] [address] Performing Lab: [facility] [place] [facility] [address] [facility] [facility] [address] [facility] [place] [facility] Vital Signs Combined list of inpatient [...] [facility] [place] [facility] SYSTOLIC BLOOD PRESSURE 148 06/21/20 13:43:28 [facility] [place] [facility] DIASTOLIC BLOOD PRESSURE 88 024 13:43:28 [facility] [place] [facility] PULSE OXIMETRY 96 06/21/2024 13:43:28 [facility] [place] [facility] WEIGHT 196 06/21/2024 13:43:28 [facility] [place] [facility] BMI 31 kg/m2 06/21/2024 13:43:28 [facility] [place] [facility] PAIN 4 06/21/2024 13:43:28 [facility] [place] [facility] HEIGHT 67 06/21/2024 13:43:28 [facility] [place] [facility] TEMPERATURE 98.1 06/21/2024 13:43:28 [facility] [place] [facility] PULSE 69 06/21/2024 13:43:28 [facility] [place] [facility] RESPIRATION 20 06/21/2024 13:43:28 [facility] [place] [facility] SYSTOLIC BLOOD [...] [facility] [place] [id number] 04/13 [facility] [place] En[facility] [id number] 05/08 [facility] [place] En[facility] [id number] 05/11 [facility] [place] [place] En[facility] [id number] 06/13 [facility] [place] En[facility] [id number] 06/13 [facility] [place] En[facility] [id number] 06/19 [facility] [place] En[facility] [id number] 06/29 [facility] [place] OFFICE O/P EST LOW 20-29 MIN [id number] Diagnos is: ICD-10- CM I11.9 Hyperte nsive heart disease without heart failure APOORVA MORENO 07/20 [facility] En[facility] [id number] 07/20 [facility] [place] En[facility] [id number] 07/22 [facility] [place] En[facility] [id number] 08/05 [facility] [place] OFF/OP EST MAY X REQ PHY/QHP [id number] Diagnos is: ICD-10- CM I11.9 Hyperte nsive heart disease without heart failure Cipriano GONZALES 08/21 [facility] En[facility] [id number] 09/04 [facility] En[facility] [id number] 09/18 [facility] En[facility] [id number] 09/29 [facility] COMPRE OPH EXAM EST PT 1/> [id number] 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, left eye, mild stage BORASKI,MASOUD [place] 10/02 [facility] EXTENDED VISUAL FIELD XM [id number] 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, left eye, mild stage KYLAHIMASOUD E 10/02 [facility] CMPTR OPHTH IMG OPTIC NERVE [id number] 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, left eye, mild stage KYLAHI,AN BRANDYN E 10/02 [facility] En[facility] [id number] 10/20 [facility] En[facility] [id number] 10/28 [facility] En[facility] [id number] 11/15 [facility] OFFICE O/P EST LOW 20 MIN [id number] Diagnos is: ICD-10- CM I11.9 Hyperte nsive heart disease without heart failure APOORVA MORENO 11/16 [facility] En[facility] [id number] 11/16 [facility] En[facility] [id number] 11/18 [facility] Encounter [id number] 11/29 [facility] En[facility] [id number] 12/13 [facility] MTMS BY PHARM ADDL 15 MIN [id number] Diagnos is: ICD-10- CM 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 MADAI HOPKINS 12/14 [facility] En[facility] [id number] 02/10 [facility] En[facility] [id number] 02/10 [facility] En[facility] [id number]/18 [facility] OFFICE O/P EST LOW 20 MIN [id number] Diagnos is: ICD-10- CM I11.9 Hyperte nsive heart disease without heart failure APOORVA MORENO 02/18 [facility] En[facility] [id number] 1.03/02 [facility] En[facility] [id number] [facility] En[facility] [id number] 1.05/04 [facility] [place] [facility] [place] SELF C[facility] MNGMENT TRAINING [id number] Diagnos is: ICD-10- CM M47.896 Other spondyl osis, lumbar region ALEXANDRA SKELTON 05/05 [place] [facility] C[facility] MNGMENT TRAINING [id number] Diagnos is: ICD-10- CM M47.896 Other spondyl osis, lumbar region ALEXANDRA SKELTON 05/20 [place] THERAPEUTI C EXERCISES [id number] Diagnos is: ICD-10- CM M47.896 Other spondyl osis, lumbar region ALEXANDRA SKELTON 06/10 [place] [facility] Outpatient Encounter [id number] 06/14 [facility] SELF CARE MNGMENT TRAINING [id number] Diagnos is: ICD-10- CM M47.896 Other spondyl osis, lumbar region ALEXANDRA SKELTON 06/16 [place] [facility] Outpatient Encounter [id number] 06/17 [facility] OFFICE O/P EST LOW 20 MIN [id number] Diagnos is: ICD-10- CM M47.26 Other spondyl osis with radicul opathy, lumbar region Lauren PEREIRA 06/21 [facility] OFFICE O/P EST LOW 20 MIN [id number] Diagnos is: ICD-10- CM I11.9 Hyperte nsive heart disease without heart failure APOORVA MORENO 06/21 [facility] Outpatient Encounter [id number] 06/30 [facility] OFF/OP EST MAY X REQ PHY/QHP [id number] Diagnos is: ICD-10- CM I11.9 Hyperte nsive heart disease without heart failure Cipriano GONZALES 07/19 [facility] EXTENDED VISUAL FIELD XM [id number] 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, left eye, mild stage BORASKI,AN BRANDYN E 08/12 [facility] CMPTR OPHTH IMG OPTIC NERVE [id number] 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, left eye, mild stage BORASKI,AN BRANDYN E 08/12 [facility] INTRM OPH EXAM EST PATIENT [id number] 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, left eye, mild stage BORASKI,AN BRANDYN E 08/12 [facility] OFF/OP EST MAY X REQ PHY/QHP [id number] Diagnos is: ICD-10- CM I11.9 Hyperte nsive heart disease without heart failure Cipriano GONZALES 08/12 [facility] [facility] NQHP OL DIG ASSMT&MGMT 5-10 [id number] Diagnos is: ICD-10- CM 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 Social History Type Response Date Comment Source Tobacco smoking status [facility] VA-TOBACCO FORMER USER 11/17/2023 [facility] [place] [facility] History of tobacco use VA-TOBACCO QUIT 15 YRS OR MORE 11/17/2023 [facility] [place] [facility] History of tobacco use VA-TOBACCO FORMER USER 10/30/2022 [facility] [place] [facility] History of tobacco use VA-TOBACCO FORMER USER 07/31/2021 [facility] [place] [facility] History of tobacco use IN-TOBACCO FORMER USER 06/29/2020 [facility] [place] [facility] History of tobacco use IN-TOBACCO FORMER USER 02/10/2019 [facility] [place] [facility] History of tobacco use QUIT TOBACCO USE > 7 YEARS AGO 11/27/2017 [facility] [place] [facility] History of tobacco use QUIT TOBACCO USE > 7 YEARS AGO 11/05/2016 [facility] [place] [facility] History of tobacco use QUIT TOBACCO USE > 7 YEARS AGO 09/17/2015 stopped 20 years ago [facility] [place] [facility] History of tobacco use HISTORY OF SMOKING 02/24/2005 [facility] [place] [facility] History of tobacco use QUIT TOBACCO USE > 7 YEARS AGO 05/28/2004 [facility] [place] [facility] History of tobacco use HISTORY OF SMOKING 11/27/2003 [facility] [place] [facility] History of tobacco use QUIT TOBACCO USE 1-7 YEARS AGO 03/15/2003 [facility] [place] [facility] History of tobacco use HISTORY OF SMOKING 08/24/2002 [facility] [place] [facility] History of tobacco use QUIT TOBACCO USE 1-7 YEARS AGO 02/11/2002 [facility] [place] [facility] History of tobacco use HISTORY OF SMOKING 05/21/2001 quit 5 years ago [facility] [place] [facility] Plan of Care List of future care activities from Department of Veterans Affairs facilities. Additional future care activities may be listed in the Assessment and Plan section. Date/Time Care Activity Care Activity Detail Facili ty 10/20/2024 AMBULATORY - MEDICINE AMBULATORY - MEDICI [place] [facility] [place] [facility] 03/07/2025 AMBULATORY - MEDICINE AMBULATORY - MEDICI [place] [facility] [place] [facility]
--- OUTSIDE RECORDS SUMMARY | 2024-10-14 13:15 | XMS_ITS ---
Author Organization [facility] Address [address] [place] [address] Care Team Providers Care Pourer Metal Name Role Phone ZaidajocelynCesilia Landry Primary Care Provider Unav ailable Renato Joseph Unavailable [phone] RESULTS Component Value Reference Range Notes GI PANEL Reviewed date:05/03/2023 11:59:29 AM Interpretation: Performing Lab:[facility], [address] [place] [id number] Notes/Report: Campylobacter Not Detected Not Detect. Plesiomonas [...] is performed by Multiplexed PCR, utilizing the [employer] (ROO[employer]) Array. REASON FOR VISIT c-diff PROBLEMS Problem Type ICD Code Onset Dates Problem Status W/U Status Risk SNOMED Code Notes Problem Diarrhea, unspecified type (R19.7) Active confirmed [id number] Encounters Encounter Location Date Provider Diagnosis [facility] [address] [place] [address] 04/30/2023 Renato Joseph Diarrhea, unspecifie d type R19.7 ASSESSMENTS Encounter Date Diagnosis Assessment Notes Treatment Notes Treatment Clinical Notes 04/30/2023 Diarrhea, unspecified type (ICD-10 - R19.7) PLAN OF TREATMENT Pending Test Test Name Order Date STOOL WBC 04/30/2023 C DIFFICILE RFLX PCR 04/30/2023
--- OUTSIDE RECORDS SUMMARY | 2024-10-14 13:15 | XMS_ITS | Clinical Summary ---
Author Organization [facility] Address [address] [place] [id number] Care Team Providers Care Provider Relations Representative Name Role Phone Ricardo Ulloa MD Primary Care Provider [phone] Social History Tobacco Use Types Packs/Day Years [...] age to complete this topic Care Teams Provider Relations Representative Relationship Specialty Start Date End Date Ricardo Ulloa MD [address] [facility] [address] [place] [address] PCP - General 02/21/20
== END 2024-10-14 12:02 | disposition home or self-care (01) ==
PROVIDERS: PCP Internal Medicine; Visit Provider Internal Medicine
DX: M47.816 Spondylosis without myelopathy or radiculopathy, lumbar region (principal); M54.51 Vertebrogenic low back pain; M62.85 Dysfunction of the multifidus muscles, lumbar region
CPT/HCPCS: 99214

== ENCOUNTER → 2024-10-14 11:15 | Outpatient (BNVA) | payer MEDICARE, SELFPAY | PROVIDERS: PCP Internal Medicine; Visit Provider Internal Medicine | DX: M47.816 Spondylosis without myelopathy or radiculopathy, lumbar region (principal); M54.51 Vertebrogenic low back pain; M62.85 Dysfunction of the multifidus muscles, lumbar region | CPT/HCPCS: 99212 ==

== ENCOUNTER 2024-12-01 12:59 | Outpatient (AMB) | payer OTHER, SELFPAY ==
--- NOTE | 2024-12-01 14:02 | AM.OFFWIN_ITS ---
Intake Vital Signs 12/01/24 14:05 Weight 191 lb BP 150/90 H Blood Pressure Location Lt brachial Position Sitting Pulse 60 Pulse Source Pulse Oximeter Pulse Oximetry (%) 99 Oxygen Delivery Method Room Air Intake Visit Reasons: EP Stepped on nail/no recent tetanus Intake Note: Patient here because he stepped on a nail today while cleaning his mothers yard. Patient Tobacco Use Status: Former Tobacco user Allergies sulfamethoxazole [From Bactrim] Allergy (Verified 12/01/24 14:06) Mouth sores, Stomach pains trimethoprim [From Bactrim] Allergy (Verified 12/01/24 14:06) Mouth sores, Stomach pains Sulfa (Sulfonamide Antibiotics) Adverse Reaction (Intermediate, Verified 12/01/24 14:06) MOUTH SORES, RASH Do you need a note to return to daycare/school/sports/work: No HPI HPI Comments History of Present Illness Details History of Present Illness - The patient is a 79-year-old male pres enting with a puncture wound to the right foot and request for a tetanus booster. - The wound was self-treated with alcoho l immediately after the incident. - Last tetanus booster was approximately nine and a half years ago; thus, the booster is overdue. - The patient denies having diabetes or other significant chronic conditions. - He maintains an active lifestyle, invo lving regular treadmill exercise. Physical Exam General: Cooperative, healthy appearing, comfortable, no acute distress and well developed Orientation: Patient oriented x3 Limitations: No limitations Head: Normal to inspection Ears: Hearing grossly normal bilaterally Nose: Normal External nose present Face and sinus: Normal facial exam Eyes: Appearance normal, both eyes and all related structures Neck: Normal visual inspection and Yes full ROM Respiratory: Normal respiratory effort and able to speak in complete sentences. Skin: No rashes or lesions noted Neuro: Patient oriented x3 Extremities: Normal to inspection, plantar aspect of right foot has barely discernable pinpoint wound, no tenderness reported, drainage, erythema or edema observed [facility] Medical History HTN (hypertension) BPH (benign prostatic hyperplasia) Encounter to establish care Erectile dysfunction due to arterial insufficiency Fracture, thoracic vertebra, compression Lumbar degenerative disc disease Essential hypertension Ascending aortic aneurysm Annual physical exam Normal colonoscopy Prostate CA Allergic rhinitis Polycythemia Hyperlipidemia Hearing problem Insomnia Hypogonadism male Osteoporosis Surgical History Hx of transurethral resection of prostate Hx of cystoscopy History of esophagogastroduodenoscopy (EGD) Hx of appendectomy History of repair of hiatal hernia Hx of hernia repair History of colon resection Hx of nasal septoplasty Hx of colonoscopy Family History Father Alzheimer disease Colon cancer Colon polyps Mother No problems noted. Other Mental health disorder Social History Housing: House Alcohol intake: current Alcohol intake frequency: holidays/special occasions only Patient Tobacco Use Status: Former Tobacco user e-Cigarette/Vaping Use: Never Used Second Hand Smoke Exposure: No service: Yes Current occupational status: employed and retired Current occupational exposures/hazards: No Cognitive needs: No Hearing needs: Yes Vision needs: No Review of Systems Const All systems reviewed & are unremarkable except as noted in HPI and below Physical Exam Vital Signs: Last Vital Signs Pulse 60 12/01/24 14:05 BP 150/90 H 12/01/24 14:05 Pulse Ox 99 12/01/24 14:05 Oxygen Delivery Method Room Air 12/01/24 14:05 Immunizations Boostrix Tdap 2.5 Lf unit-8 mcg-5 Lf/0.5 mL intramuscular syringe Performing Provider: Vandana Demarco PA-C Performing Location: [facility] Administered by: MIMI Gómez on 12/01/24 14:19 Dose Route Admin Location Dispensed Lot Number Expiration Date [facility] Powder Core Tester 0.5 mL IM Left Deltoid 0.5 mL [id number] 12/03/26 34464-352-30 Locomizer VIS Given Date VIS Provided VIS Publication Date 12/01/24 Single Vaccine 21 Eligibility Eligibility Date Funding Source Not [facility] Eligible 12/01/24 Private Assessment & Plan Assessment & Plan (1) Puncture wound of plantar aspect of foot: Code(s): S91.339A - Puncture wound without foreign body, unspecified foot, initial encounter Qualifiers: Encounter type: initial encounter Laterality: right Qualified Code(s): S91.331A - Puncture wound without foreign body, right foot, initial encounter Plan: During the visit, I administered a tetanus booster due to the patient being overdue, based on his report of a booster approximately nine and a half years ago. Will not give PPX abx as very low chance of infection due to small wound, cleaned immediately, also Levaquin is contraindicated in thsi pt due to his aortic aneurism. The patient was advised to observe the wound for any signs of infection, such as redness, heat, or tenderness, and to seek further medical attention if these occurred. The patient agreed with the proposed plan and understood the instructions provided. Patient was informed and verbally consented to the use of an ambient scribe for clinic note documentation during this visit. Orders: Orders TDaP Immunization Today S91.339A - Puncture wound without foreign body, unspecified foot, initial encounter Medications: New Boostrix Tdap (diphth,pertus(acell),tetanus) 0.5 mL IM ONCE 0.5 mL 0RF NS S91.339A - Puncture wound without foreign body, unspecified foot, initial encounter Coding Level of Care Code Est Pt Level 3 (20596) Diagnoses Puncture wound of plantar aspect of right foot, initial encounter S91.331A Encounter type: initial encounter Laterality: right
[2024-12-01 14:05] VITALS: BP 150/90; PULSE 60; O2SAT 99
--- OUTSIDE RECORDS SUMMARY | 2024-12-01 15:51 | XMS_ITS ---
Author Name [facility] [place] [facility] [place] [facility] [place] Address [address] [place] [address] Care Team Providers Care Eeg Tech Name Role Phone APOORVA MORENO Primary Care [...] [place] M[place] ([place]) MEDICARE ADVANTAGE MCR ([facility]) Apr 17, 2013 [id number] PATIENT [facility] ([facility]) MEDICARE ADVANTAGE MCR ([facility]) Apr 17, 2013 [id number] Lauren COELHO PATIENT Selected Encounter This section includes the information on record at [place] for the Encounter. Date/Time Encounter Type Encounter Description Reason Provider Source Aug 12, 2024 09:00 AM EXTENDED VISUAL FIELD XM OPTOMETRY ICD-10-CM 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, left eye, mild stage BORASKI,PURNIMA E IHE Encounter Template Text not used by [facility] Assessments - Encounter Diagnoses This section includes the primary and secondary diagnoses documented for the Encounter. Date/Time Primary/Secondary Diagnosis Diagnosis Name Provider Source Aug 17, 2024 01:54 PM PRIMARY Low-tension glaucoma, left eye, mild stage PURNIMA ESTRADA [facility] Plan of Treatment: Future Appointments (+ 6 months) and Future Tests (+/- 45 days) The Plan of Treatment section includes future care activities for the patient from all [place] treatmentfacilities. This section includes future appointments and future orders which are active, pending or scheduled. Future Appointments This section includes appointments that were scheduled to occur 6 months from the date of the Encounter, up to a maximum of 20 appointments. The data comes from all [place] treatment facilities. Appointment Date/Time Appointment Type Appointme nt Facility Name Oct 20, 2024 11:30 AM AMBULATORY - MEDICINE [facility] Vital Signs: All taken on the encounter date This section contains inpatient and outpatient Vital Signs collected on the date of the Encounter. Date/Time Temperature Pulse Blood Pressure Respiratory Rate SP02 Pain Height Weight Body Mass Index Source Aug 12, 2024 10:12 AM 138/82 [facility] Aug 12, 2024 10:12 AM 67 142/90 [facility] Social History: Smoking Status (Most current) and Tobacco Use (All prior to encounter date) This section includes the most current, and the historical, smoking and tobacco- related health factors from the [place] facility where the Encounter took place. Current Smoking Status This section includes the most current smoking, or tobacco-related health factor, from the [place] facility where the Encounter took place. Date/Time Current Smoking Status Comment [facility] it Nov 17, 2023 11:30 AM VA-TOBACCO FORMER USER [facility] Tobacco Use History This section includes a history of the smoking, or tobacco-related health factors, that were collected on or before the date of the Encounter. The data comes from the [place] facility where the Encounter took place. Date/Time Smoking Status/Tobac co Use Comment Facility Nov 17, 2023 11:30 AM IN-TOBACCO QUIT 15 YRS OR MORE [facility] Oct 30, 2022 03:20 PM VA-TOBACCO FORMER USER [facility] [place] [facility] Oct 30, 2022 03:20 PM VA-TOBACCO QUIT 15 YRS OR MORE [facility] [place] [facility] Jul 31, 2021 09:41 AM VA-TOBACCO FORMER USER [facility] [place] [facility] Jul 31, 2021 09:41 AM VA-TOBACCO QUIT 15 YRS OR MORE [facility] [place] [facility] Jun 29, 2020 11:00 AM VA-TOBACCO FORMER USER [facility] [place] [facility] Jun 29, 2020 11:00 AM VA-TOBACCO QUIT 15 YRS OR MORE [facility] [place] [facility] Feb 10, 2019 10:14 AM VA-TOBACCO FORMER USER [facility] [place] [facility] Feb 10, 2019 10:14 AM VA-TOBACCO QUIT 15 YRS OR MORE [facility] [place] [facility] Nov 27, 2017 11:12 AM QUIT TOBACCO USE > 7 YEARS AGO [facility] [place] [facility] Nov 05, 2016 11:01 AM QUIT TOBACCO USE > 7 YEARS AGO [facility] [place] [facility] Sep 17, 2015 01:03 PM QUIT TOBACCO USE > 7 YEARS AGO stopped 20 years ago [facility] [place] [facility] Feb 24, 2005 10:09 AM HISTORY OF SMOKING [facility] [place] [facility] May 28, 2004 08:08 AM QUIT TOBACCO USE > 7 YEARS AGO [facility] [place] [facility] Nov 27, 2003 01:12 PM HISTORY OF SMOKING [facility] [place] [facility] Mar 15, 2003 02:03 PM QUIT TOBACCO USE 1-7 YEARS AGO [facility] [place] [facility] Aug 24, 2002 11:07 AM HISTORY OF SMOKING [facility] [place] [facility] Feb 11, 2002 11:35 AM QUIT TOBACCO USE 1-7 YEARS AGO [facility] [place] [facility] May 21, 2001 01:11 PM HISTORY OF SMOKING quit 5 years ago [facility] [place] [facility] Encounter Notes: All associated encounter notes This section contains the clinical notes associated to the Encounter. Date/Time Encounter Note(s) Provider Source Aug 12, 2024 09:30 AM OPTOMETRY CONSULT: LOCAL TITLE: CONSULT REPORT/OPTOMETRY/SEAN (Shashank) [...] Miranda fast 242 cohen were run by emergency veterinary technician. A: OD field is normal with low test reliability with fixation losses and OS field exhibits stable inferior nasal step. Patient remains mild low-tension glaucoma patient OS. P: Follow-up as scheduled for after imaging. /rajesh/ PURNIMA ESTRADA OD STAFF COATING AND EMBOSSING UNIT OPERATOR Signed: 08/17/2024 13:45 PURNIMA ESTRADA [facility]
--- OUTSIDE RECORDS SUMMARY | 2024-12-01 15:52 | XMS_ITS | Clinical Summary ---
Author Organization [facility] Address [address] [place] [address] Care Team Providers Care Rehabilitation Tech Name Role Phone Ricardo Ulloa MD Primary Care Provider [phone] Social History Tobacco Use Types Packs/Day Years Used Date Smoking Tobacco: Never Assessed Sex and Gender Information Value Date Recorded Sex Assigned at Not on file Legal Sex Male 12:24 PM EDT Gender Identity Not on file Sexual Orientation [...] on patient's age to complete this topic Insurance [place] [employer] BASIS 16 F,ATTN:SAMANTA VALADEZ [id number] Care Teams Rehabilitation Tech Relationship Specialty Start Date End Date Ricardo Ulloa MD [address] [place] [address] PCP - General 02/21/20
--- OUTSIDE RECORDS SUMMARY | 2024-12-01 15:52 | XMS_ITS | Encounter Summary ---
Author Name [facility] [place] Address [address] [place] [address] Care Team Providers Care Dialer Name Role Phone ANUPAM LEE Primary Care [...] [place] MCR (WNR) MEDICARE ADVANTAGE MCR ([facility]) Apr 17, 2013 [id number] Lauren COELHO PATIENT [facility] ([facility]) MEDICARE ADVANTAGE MCR ([facility]) Apr 17, 2013 [id number] Lauren COELHO PATIENT Selected Encounter This section includes the information on record at [place] for the Encounter. Date/Time Encounter Type Encounter Description Reason Provider Source Oct 20, 2024 11:30 AM OFFICE O/P EST LOW 20 MIN PRIMARY CARE/MEDICINE ICD-10-CM I11.9 Hypertensive heart disease without heart failure ROCKY LEE [facility] Encounter Template Text not used by [place] Assessments - Encounter Diagnoses This section includes the primary and secondary diagnoses documented for the Encounter. Date/Time Primary/Secondary Diagnosis Diagnosis Name Provider Source Oct 20, 2024 12:19 PM PRIMARY Hypertensive heart disease without heart failure [facility] LEE [facility] Oct 20, 2024 12:19 PM SECONDARY Carcinoma in situ of prostate [facility] LEE [facility] Oct 20, 2024 12:19 PM SECONDARY Primary open-angle glaucoma, unsp, stage unspecified ROCKY LEE [place] [facility] Plan of Treatment: Future Appointments (+ 6 months) and Future Tests (+/- 45 days) The Plan of Treatment section includes future care activities for the patient from all [place] treatmentfacilities. This section includes future appointments and future orders which are active, pending or scheduled. Future Appointments This section includes appointments that were scheduled to occur 6 months from the date of the Encounter, up to a maximum of 20 appointments. The data comes from all [place] treatment facilities. Appointment Date/Time Appointment Type Appointme nt Facility Name Mar 10, 2025 10:30 AM AMBULATORY - MEDICINE [facility] Apr 21, 2025 10:30 AM AMBULATORY MEDICINE [facility] Lab Results: +/- 30 days of the encounter This section includes the Chemistry and Hematology Lab Results on record with [place] for the patient. Radiology Reports and Pathology Reports are provided separately, in subsequent sections. Lab Results This section contains the Chemistry/Hematology Results that were resulted 30 days before or 30 daysafter the date of the Encounter. Date/Time Source Result Type Result - Unit Interpretation Reference Range Specimen Type Comment Oct 14, 2024 10:04 AM [facility] LIVER FUNCTION SERUM Specimen Type: SERUM No comment entered. Ordering Provider: RADHA LEE Report Released Date/Time: Jun 21, 2024 02:06 PM Reporting Lab: [address] [id number] Performing Lab: [address] [id number] PROTEIN,TOTAL 7.2 g/dL 6.0-8.3 ALBUMIN 4.1 g/dL 3.5-5.0 ALKALINE PHOSPHATASE 64 U/L 40-150 AST 19 U/L 5-34 ALT 26 U/L BILIRUBIN, TOTAL 0.7 mg/dL 0.2-1.2 Oct 14, 2024 10:04 AM [facility] BASIC METABOLIC PANEL (fasting) SERUM Specime n Type: SERUM No comment entered. Ordering Provider: ANUPAM LEE Report Released Date/Time: Jun 21, 2024 02:06 PM Reporting Lab: [address] [id number] Performing Lab: [address] [address] UREA NITROGEN 15 mg/dL 7-25 GLUCOSE 110 mg/dL H 65-100 SODIUM 139 mmol/L 135-145 POTASSIUM 4.1 mmol/L 3.5-5.0 CHLORIDE 107 mmol/L 100-110 CO2 23 meq/L 20-30 CALCIUM 9.5 mg/dL 8.5-10.2 CREATININE, Serum 0.68 mg/dL 0.50-1.40 eGFR(CKD-EPI 2020) >90 mL/min >60 Oct 14, 2024 10:04 AM [facility] LIPID PANEL FASTING SERUM Specimen Type: SERU M No comment entered. Ordering Provider: ANUPAM LEE Report Released Date/Time: Jun 21, 2024 02:06 PM Reporting Lab: [address] [id number] Performing Lab: [address] [address] CHOLESTEROL 161 mg/dL TRIGLYCERIDE 99 mg/dL 0-150 LDL calculated 95 mg/dL 0-129 CHOL/HDL 3.5 HDL CHOLESTEROL 46 mg/dL 40-60 Vital Signs: All taken on the encounter date This section contains inpatient and outpatient Vital Signs collected on the date of the Encounter. Date/Time Temperature Pulse Blood Pressure Respiratory Rate SP02 Pain Height Weight Body Mass Index Source Oct 20, 2024 11:48 AM 98.6 70 120/88 16 93 0 201 32 [place] [facility] [place] [facility] Social History: Smoking Status (Most [...] took place. Date/Time Current Smoking Status Comment [facility] it Oct 20, 2024 11:30 AM VA-TOBACCO [place] CIGARETTES [place] [facility] Tobacco Use History This section includes a history of the smoking, or tobacco-related health factors, that were collected on or before the date of the Encounter. The data comes from the [place] facility where the Encounter took place. Date/Time Smoking Status/Tobac co Use Comment [facility] Oct 20, 2024 11:30 AM [place]-TOBACCO USE FOR[place] CIGARETTES [place] [facility] [place] [facility] Nov 17, 2023 11:30 AM VA-TOBACCO FORMER USER [place] [facility] [place] [facility] Nov 17, 2023 11:30 AM [place]-TOBACCO QUIT 15 YRS OR MORE [place] [facility] [place] [facility] Oct 30, 2022 03:20 PM VA-TOBACCO FORMER USER [place] [facility] [place] [facility] Oct 30, 2022 03:20 PM VA-TOBACCO QUIT 15 YRS OR MORE [place] [facility] [place] [facility] Jul 31, 2021 09:41 AM VA-TOBACCO FORMER USER [place] [facility] [place] [facility] Jul 31, 2021 09:41 AM VA-TOBACCO QUIT 15 YRS OR MORE [place] [facility] [place] [facility] Jun 29, 2020 11:00 AM VA-TOBACCO FORMER USER [place] [facility] [place] [facility] Jun 29, 2020 11:00 AM VA-TOBACCO QUIT 15 YRS OR MORE [place] [facility] [place] [facility] Feb 10, 2019 10:14 AM VA-TOBACCO FORMER USER [place] [facility] [place] [facility] Feb 10, 2019 10:14 AM [place]-TOBACCO QUIT 15 YRS OR MORE [place] [facility] [place] [facility] Nov 27, 2017 11:12 AM QUIT TOBACCO USE > 7 YEARS AGO [place] [facility] [place] [facility] Nov 05, 2016 11:01 AM QUIT TOBACCO USE > 7 YEARS AGO [place] [facility] [place] [facility] Sep 17, 2015 01:03 PM QUIT TOBACCO USE > 7 YEARS AGO stopped 20 years ago [place] [facility] [place] [facility] Feb 24, 2005 10:09 AM HISTORY OF SMOKING [place] [facility] [place] [facility] May 28, 2004 08:08 AM QUIT TOBACCO USE > 7 YEARS AGO [place] [facility] [place] [facility] Nov 27, 2003 01:12 PM H[place]ORY OF SMOKING [place] [facility] Mar 15, 2003 02:03 PM QUIT TOBACCO USE 1-7 YEARS AGO [place] [facility] [place] [facility] Aug 24, 2002 11:07 AM HISTORY OF SMOKING [place] [facility] [place] [facility] Feb 11, 2002 11:35 AM QUIT TOBACCO USE 1-7 YEARS AGO [place] [facility] [place] [facility] May 21, 2001 01:11 PM HISTORY OF SMOKING [facility] 5 [facility] Encounter Notes: All associated encounter notes This section contains the clinical notes associated to the Encounter. Date/Time Encounter Note(s) Provider Source Oct 20, 2024 12:14 PM PHYSICIAN LAND ACQUISITION ANALYST NOTE: LOCAL TITLE: RAMIREZ NOTE STANDARD TITLE: PHYSICIAN LAND ACQUISITION ANALYST NOTE DATE OF NOTE: OCT 20, 2024@12:14 ENTRY DATE: OCT 20, 2024@12:14:35 AUTHOR: ANUPAM LEE COSIGNER: URGENCY: STATUS: COMPLETED CC/HPI/A/P: 78 year old MALE here in follow-up for; Htn, he found that BID dosing of Coreg made him nauseous, but once daily is ok, so I adjust the order as he bps are fine. glaucoma, drops here. PRostate cancer, Sees Dr Ayers about every six months. Review of systems: Patient reports no changes from [place], in meds or any admissions. Active problems - Computerized Problem List is the source for the followin. Primary Open Angle Glaucoma (SCT 61608812) 2. Thoracic aortic aneurysm without rupture Followed by [facility]. 3. Exposure to potentially hazardous substance Connect Snomed Code to ICD 10 Code refer to note dated 07/20/23 4. History of implantation of penile prosthesis 5. Cancer of prostate 6. Sciatica 7. Benign essential hypertension (SNOMED CT 9854439) 8. Hypogonadism 9. Screening for Malignant Neoplasms of colon No polyps or inflammatory mucosal changes Minimal scattered diverticulosis throughout the entire colon FU in 10 years if asymptomatic - 2021 10. Hearing loss * 11. Tinnitus * 12. Chronic sinusitis 13. Impaired FASTING Glucose 14. Hyperlipidemia * 15. Allergic rhinitis * 16. Diverticulitis, Colonic * 17. Hypertrophy (Benign) of Prostate without Urinary obstruction TURP 10/2101 Dr Stephens at [facility]. 18. GERD * 19. Insomnia * 20. Herpes Genitalis h/o genital herpes -- no recurrence in several years (active from 1979 - 1984) 21. DIAPHRAGMATIC HERNIA 22. CALCULUS OF KIDNEY 23. former smoker SERVICE CONNECTED % - 30 [...] TAKE ONE TABLET BY MOUTH ONCE ACTIVE (S) DAILY FOR BLOOD PRESSURE/HEART, DO NOT TAKE WITH GRAPEFRUIT JUICE Indication: FOR HIGH BLOOD PRESSURE 3) ATORVASTATIN CALCIUM 40MG TAB TAKE ONE-HALF TABLET BY MOUTH ACTIVE (S) ONCE DAILY FOR CHOLESTEROL REPLACES SIMVASTATIN. Indication: FOR HIGH CHOLESTEROL 4) CARBOXYMETHYLCELLULOSE NA 0.5% OPH SOLN INSTILL 1 DROP INTO ACTIVE EACH EYE FOUR TIMES DAILY NEEDED Indication: FOR DRY EYE 5) CARVEDILOL 12.5MG TAB TAKE ONE TABLET BY MOUTH TWICE DAILY ACTIVE Indication: FOR HIGH BLOOD PRESSURE 6) LATANOPROST 0.005% OPH SOLN INSTILL 1 DROP INTO THE LEFT EYE ACTIVE AT BEDTIME TO REDUCE PRESSURE IN THE EYE 7) TESTOSTERONE (EQV-ANDROGEL) 1% 5GM GEL APPLY 1 PACKET ACTIVE TOPICALLY ONCE DAILY TO SHOULDER. RUB IN UNTIL DRY, THEN WASH HANDS WITH SOAP AND WATER 8) ZOLPIDEM TARTRATE 10MG TAB TAKE ONE TABLET BY MOUTH AT ACTIVE BEDTIME Indication: FOR SLEEP Active Non-VA Medications Status 1) Non-VA ASPIRIN 81MG EC TAB 81MG BY MOUTH DAILY ACTIVE 9 Total Medications 98.6 F [37.0 C] (10/20/2024 11:48) 70 (10/20/2024 11:48) 16 (10/20/2024 11:48) 120/88 (10/20/2024 11:48) 0 (10/20/2024 11:48) 67 in [170.2 cm] (06/21/2024 13:43) 201 lb [91.17 kg] (10/20/2024 11:48) BMI: 31.5 Neuro: Alert and oriented times three, grossly nonfocal, nasolabial folds intact. Recent labs reviewed with patient today:yes /es/ Anupam Lee PA-C STAFF PHYSICIAN LAND ACQUISITION ANALYST Signed: 10/20/2024 12:19 ANUPAM LEE [place] [facility] [place] [facility] Oct 20, 2024 12:05 PM ACCOUNTING OF DISCLOSURES NOTE: LOCAL TITLE: STATE PRESCRIPTION DRUG MONITORING PROGRAM STANDARD TITLE: ACCOUNTING OF DISCLOSURES NOTE DATE OF NOTE: OCT 20, 2024@12:05:34 ENTRY DATE: OCT 20, 2024@12:05:34 AUTHOR: ANUPAM LEE EXP COSIGNER: URGENCY: STATUS: COMPLETED This PDMP query was submitted by Anupam Lee. The clinical justification for this PDMP query is to review controlled substances prescribed outside of the [facility], and any additional information that may become available, as an important component of standard clinical care, and in accordance with [facility] policy. Patient information was shared with the PDMP [employer] [place]. No prescription(s) for controlled substances outside the [place] were found in the last 90 days. /rajesh/ Anpuam Lee PA-C STAFF PHYSICIAN LAND ACQUISITION ANALYST Signed: 10/20/2024 12:14 ANUPAM LEE [facility] Oct 20, 2024 11:46 AM PREVENTIVE MEDICINE NURSING NOTE: LOCAL TITLE: CLINICAL REMINDERS/NURSING STANDARD TITLE: PREVENTIVE MEDICINE NURSING NOTE DATE OF NOTE: OCT 20, 2024@11:46 ENTRY DATE: OCT 20, 2024@11:46:45 AUTHOR: GISSELL ALVARADO EXP COSIGNER: URGENCY: STATUS: COMPLETED Depression Screening: Perform PHQ-2 A PHQ-2 screen was performed. The score was 0 which is a negative screen for depression. Over the past two weeks, how often have you been bothered by the following problems? 1. Little interest or pleasure in doing things Not at all 2. Feeling down, depressed, or hopeless Not at all Tobacco Use Screening: The patient is a former cigarette smoker. The patient has never used other types of tobacco. Alcohol Use Screen (AUDIT-C): Alcohol Screen: SCREEN FOR ALCOHOL (AUDIT-C) An alcohol screening test (AUDIT-C) was negative (score=2). 1. How often did you have a drink containing alcohol in the past year? Consider a drink to be a 12 ounce can or bottle of regular beer, 8 ounces of malt liquor, a 5 ounce glass of table wine, or a 1.5 ounce shot of liquor (like scotch, gin, or vodka). Two to four times a month 2. How many drinks containing alcohol did you have on a typical day when you were drinking in the past year? One or two drinks 3. How often did you have six or more drinks on one occasion in the past year? Never /rajesh/ GISSELL ALVARADO LPN Signed: 10/20/2024 11:50 ANGELIKA ALVARADO [facility]
--- OUTSIDE RECORDS SUMMARY | 2024-12-01 15:52 | XMS_ITS ---
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 Date/Time Primary/Secondary Diagnosis Diagnosis Name Provider Source Dec 15, 2023 11:50 AM PRIMARY Carcinoma in situ of prostate LEXIS HOPKINS [facility] Plan of Treatment: Future Appointments (+ 6 months) and Future Tests (+/- 45 days) The Plan of Treatment section includes future care activities for the patient from all [place] [facility]. This section includes future appointments [...] 02:00 PM [facility] Feb 19, 2024 11:00 AM AMBULATORY - MEDICINE [facility] May 05, 2024 02:30 PM AMBULATORY - REHAB MEDICIN [facility] May 20, 2024 02:30 PM AMBULATORY - REHAB MEDICIN [facility] Jun 10, 2024 02:00 PM AMBULATORY - REHAB MEDICIN [facility] Social History: Smoking Status (Most [...] 17, 2023 11:30 AM VA-TOBACCO FORMER USER [facility] Tobacco Use History This section includes a history of the smoking, or tobacco-related health factors, that were collected on or before the date of the Encounter. The data comes from the [place] facility where the Encounter took place. Date/Time Smoking Status/Tobac co Use Comment Facility Nov 17, 2023 11:30 AM [place]-TO[place] QUIT 15 YRS OR MORE [facility] Oct 30, 2022 03:20 PM VA-TOBACCO FORMER USER [facility] Oct 30, 2022 03:20 PM VA-TOBACCO [...] 1-7 YEARS AGO [place] [facility] [place] [facility] Aug 24, 2002 11:07 AM HISTORY OF SMOKING [place] [facility] [place] [facility] Feb 11, 2002 11:35 AM QUIT TOBACCO USE 1-7 YEARS AGO [place] [facility] [place] [facility] May 21, 2001 01:11 PM HISTORY OF SMOKING quit 5 years ago [place] [facility] [place] [facility] Encounter Notes: All associated encounter notes [...] standard clinical care, and in accordance with [facility] policy. Patient information was shared with the PDMP [facility] [place]. No prescription(s) for controlled substances outside the [facility] were found in the last 90 days. /rajesh/ LEXIS HOPKINS CLINICAL PHARMACIST PRACTITIONER, PAIN Signed: 12/15/2023 11:49 LEXIS HOPKINS [place] [facility] [facility] Dec 15, 2023 08:24 AM PAIN MEDICINE [...] to clinic today in no apparent distress. states some confusion as he thought appointment today was with physiatry pain management. However, after introducing self and role on pain team agreed to proceed with today's appointment. [place] reports a history of back pain primarily in the thoracic spine and low back area with sciatica on the right side. He reports today a pain level of 5 out of 10, with 10 being the most severe. [place] reports pain level increases in the evening, usually around an 8/10. reports while standing/walking around pain is usually improved. He finds it to be most bothersome when sitting or lying down. reports he has seen a number of pain management providers in the past most recently following with [facility]. [place] was paying with Non-VA insurance, however, is having difficulty getting services covered per his report. Notes from non-VA providers were requested by [facility] PCP and are available in [facility] for review. Katherine reports he has received [...] No pain related medications in profile - denies any regular pain medication use. Does endorse PRN use of acetaminophen, ibuprofen, and naproxen. Reports he is careful to not overuse d/t concerns for kidney function - [place] does use OTC Lidocaine patches Previous Pain Related Medications: NSAIDs: Ibuprofen, Naproxen Opioids: Hydrocodone/Acetaminophen Antidepressants: Amitriptyline EVALUATION OF NON-PHARM (COMPLIMENTARY AND INTEGRATIIVE MEDICINE) MOADLITIES: HEAT/ICE: Sometimes. TENS: [place] believes he had trial around the same time as PT in 2016 but does not recall benefit STRETCHING/EXERCISE: No purposeful exercise; active with work PAIN INTERVENTIONS/INJECTIONS: - 12/2022 - SI Joint Injection * Limited benefit per - 05/2023 - right L5/S1 facet aspiration and injection through [facility] * Improvement in pain level allowing for sleep and functioning - 06/2023 - Discussion on SCS/Pain Pump with [facility] * [place] denies any follow-up based on this discussion - 09/09 - Non-VA providers recommended RFA of L5 dorsal ramus/L5-S1 facet capsule * Did not occur - 10/10 - [facility] Referral denied. Dr. Chinchilla recommended referral to [place] physiatry and pain clinic for non- invasive recommendations PHYSICAL THERAPY: [place] previously referred to PT through [facility] in 2016. reports minimal benefit from this ACUPUNCTURE: Denied. [...] could be a burden to her SERVICE: [employer] 1965 HOBBIES: [facility] [employer] [facility] [employer] LEVEL OF ACTIVITY: Good. 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 Quit 30 years ago. ALCOHOL USE: Occasional; socially on holiday CANNABIS USE: Denied. OTHER ILLICIT SUBSTANCES: Denied. RISK MITIGATION: PDMP: Completed today as part of consult review; no controlled prescriptions filled outside [facility] in the last 90-days C-SSRS: Completed today; screened SULFONAMIDE/RELATED ANTIMICROBIALS, AUGMENTIN Active and Recently [...] Sciatica 5. Benign essential hypertension (SNOMED CT [id number]) 6. Hypogonadism 7. Screening for Malignant Neoplasms of colon 8. Hearing loss * 9. Tinnitus * 10. Chronic sinusitis 11. Impaired FASTING Glucose 12. Hyperlipidemia * 13. Allergic rhinitis * 14. Diverticulitis, Colonic * 15. Hypertrophy (Benign) of Prostate without Urinary obstruction 16. GERD * 17. 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 DIAPHRAGMATIC HERNIA 20. CALCULUS OF KIDNEY 21. former smoker IMAGING 04/18/23: MRI Lumbar Spine w/o Contrast (available in [...] ASSESSMENT: Mr. Coelho is a 78-year-old male [place] with a history of chronic thoracic and lumbar back pain with sciatica. [place] has been following with Non-VA physiatry and orthopedics providers at [facility], however, d/t insurance changes is interested in learning more about [place] pain management options. Outside records are available for review in [facility]. Comorbid conditions include HTN, asthma, GERD, and insomnia. As this was initial appointment with pain clinic much time was spent obtaining history, providing education, and building rapport with [place]. While was expecting to be seen by [...] these factors can influence each other. Provided with flyer for [employer] and explain purpose of this course to better understand and cope while living with chronic pain. While [place] did decline today, he did keep flyer to think about in the future. Acknowledged [place]'s desire to limit medication use. Did offer trial of diclofenac 1% gel as an alternative to use of oral NSAIDs as systemic absorption is significantly lower in comparison reducing risk of MICHELE, such as renal injury. was interested in this trial. Reviewed utilizing dosing care and proper application instructions. Counseled [place] to not exceed 32gms per day and to avoid simultaneous use with lidocaine patches. voiced an understanding of education provided. [place] remains interested in being seen by [place] physiatry. This was also recommended in Dr. [...] the development of this plan, involving the [place], clinician, and any caregivers present. The was provided the opportunity express questions or concerns, and the plan was adjusted as needed to address these concerns. (and/or caregiver) verbalized understanding of the plan, including possible known risks and benefits, and had no additional questions. PLAN: 1. Start Diclofenac 1% Gel 4gm TID PRN - [place] counseled on proper application - Prescription entered for mail delivery per [place]'s preference 2. may continue to utilize OTC lidocaine patches PRN - Counseled to not overlap use with diclofenac gel 3. Pain education provided - Offered referral to [facility]; declines today 4. Referral to [facility] PM&R placed 5. Baseline risk mitigation completed - C-SSRS Completed; screened negative - PDMP queried; results returned as expected F/U via F2F in 4-6 weeks; Pt instructed to contact clinic with any questions or concerns prior to next encounter. Encounter Time: 60 minutes Suicide Screen: C-SSRS Screening [place]-Suicide Severity Rating Scale (C-SSRS Screener) 1. Over [...] PRACTITIONER, PAIN Signed: 12/15/2023 16:21 [facility]OPKINS [place] [facility]
--- OUTSIDE RECORDS SUMMARY | 2024-12-01 15:52 | XMS_ITS | Encounter Summary ---
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 Date/Time Encounter Type Encounter Description Reason Provider Source Jun 21, 2024 01:00 PM OFFICE O/P EST LOW 20 MIN PM&RS PHYSICIAN ICD-10-CM M47.26 Other spondylosis with radiculopathy, lumbar region JOSE ALBERTO PEREIRA [facility] Encounter Template Text not used by [place] Assessments - Encounter Diagnoses This section includes the primary and secondary diagnoses documented for the Encounter. Date/Time Primary/Secondary Diagnosis Diagnosis Name Provider Source Jun 21, 2024 01:37 PM PRIMARY Other spondylosis with radiculopathy, lumbar region JOSE ALBERTO PEREIRA [facility] Jun 21, 2024 01:37 PM SECONDARY Oth intvrt disc degen, lum rgn w discog bck & lw extrm pain JOSE ALBERTO PEREIRA [facility] Plan of Treatment: Future Appointments (+ 6 months) and Future Tests (+/- 45 days) The Plan of Treatment section includes future care activities for the patient from [facility] [place] [facility] This section includes future appointments and future orders which are active, pending or scheduled. Future Appointments This section includes appointments that were scheduled to occur 6 months from the date of the Encounter, up to a maximum of 20 appointments. The data comes from all [place] treatment facilities. Appointment Date/Time Appointment Type Appointme nt Facility Name Jul 19, 2024 10:00 AM AMBULATORY - [place]ICINE [place] [facility] [place] [facility] Aug 12, 2024 09:[address] [facility] [place] [facility] Aug 12, 2024 09:15 AM AMBULATORY - MEDICINE [facility] [place] [facility] Aug 12, 2024 09:[address] [facility] [place] [facility] Aug 12, 2024 10:00 AM AMBULATORY - [place]ICINE [place] [facility] [place] [facility] Oct 20, 2024 11:30 AM AMBULATORY - MEDICINE [facility] Lab Results: +/- 30 days of the encounter This section includes the Chemistry and Hematology Lab Results on record with [place] for the patient. Radiology Reports and Pathology Reports are provided separately, in subsequent sections. Lab Results This section contains the Chemistry/Hematology Results that were resulted 30 days before or 30 daysafter the date of the Encounter. Date/Time Source Result Type Result - Unit Interpretation Reference Range Specimen Type Comment Jun 14[facility] 2024 10:[facility] [place] LIPID PANEL FASTING SERUM Specimen Type: SERUM No comment entered. Ordering Provider: RADHA MORENO Report Released Date/Time: Jun 08, 2024 11:04 AM Reporting Lab: [facility] [address] [address] Performing Lab: [facility] [address] [address] CHOLESTEROL 166 mg/dL TRIGLYCERIDE 71 mg/dL 0-150 LDL calculated 95 mg/dL 0-129 CHOL/HDL 2.9 HDL CHOLESTEROL 57 mg/dL 40-60 Jun 14, 2024 10:20 AM [facility] LIVER FUNCTION SERUM Specimen Type: SERUM No comment entered. Ordering Provider: APOORVA MORENO Report Released Date/Time: Jun 08, 2024 11:04 AM Reporting Lab: [facility] [address] [address] Performing Lab: [address] [address] PROTEIN,TOTAL 6.8 g/dL 6.0-8.3 ALBUMIN 4.0 g/dL 3.5-5.0 ALKALINE PHOSPHATASE 63 U/L 40-150 AST 18 U/L 5-34 ALT 30 U/L BILIRUBIN, TOTAL 0.8 mg/dL 0.2-1.2 Jun 14, 2024 10:20 AM [facility] BASIC METABOLIC PANEL (fasting) SERUM Specime n Type: SERUM No comment entered. Ordering Provider: APOORVA MORENO Report Released Date/Time: Jun 08, 2024 11:04 AM Reporting Lab: [facility] [address] [address] Performing Lab: [address] [address] UREA NITROGEN 21 mg/dL 7-25 GLUCOSE 105 [...] 196 31 [facility] [place] [facility] Jun 21, 2024 12:58 PM 140/70 5 [facility] [place] [facility] Social History: Smoking Status (Most current) and Tobacco Use (All prior to encounter date) This section includes the most current, and the historical, smoking and tobacco- related health factors from the [place] facility where the Encounter took place. Current Smoking Status This section includes the most current smoking, or tobacco-related health factor, from the [place] facility where the Encounter took place. Date/Time Current Smoking Status Comment [facility] Nov 17, 2023 11:30 AM VA-TOBACCO QUIT 15 YRS OR MORE [place] [facility] [place] [facility] Tobacco Use History This section includes a history of the smoking, or tobacco-related health factors, that were collected on or before the date of the Encounter. The data comes from the [place] facility where the Encounter took place. Date/Time Smoking Status/Tobac co Use Comment Facility Nov 17, 2023 11:30 AM VA-TOBACCO QUIT 15 YRS OR MORE [facility] [place] [facility] Oct 30, 2022 03:20 PM VA-TOBACCO FORMER USER [facility] [place] [facility] Oct 30, 2022 03:20 PM VA-TOBACCO QUIT 15 YRS OR MORE [facility] [place] [facility] Jul 31, 2021 09:41 AM VA-TOBACCO FORMER USER [facility] [place] [facility] Jul 31, 2021 09:41 AM VA-TOBACCO QUIT 15 YRS OR MORE [facility] [place] [facility] Jun 29, 2020 11:00 AM VA-TOBACCO FORMER USER [facility] [place] [facility] Jun 29, 2020 11:00 AM VA-TOBACCO QUIT 15 YRS OR MORE [facility] [place] [facility] Feb 10, 2019 10:14 AM VA-TOBACCO FORMER USER [facility] [place] [facility] Feb 10, 2019 10:14 AM VA-TOBACCO QUIT 15 YRS OR MORE [facility] Nov 27, 2017 11:12 AM QUIT TOBACCO USE > 7 YE[facility] AGO [facility] Nov 05, 2016 11:01 AM QUIT TOBACCO USE > 7 YEARS AGO [facility] Sep 17, 2015 01:03 PM QUIT TOBACCO USE > 7 YEARS AGO stopped 20 years [facility] Feb 24, 2005 10:09 AM HISTORY OF SMOKING [facility] May 28, 2004 08:08 AM QUIT TOBACCO USE > 7 YEARS AGO [facility] Nov 27, 2003 01:12 PM HISTORY OF SMO[facility] Mar 15, 2003 02:03 PM QUIT TOBACCO USE 1-7 YEARS AGO [facility] Aug 24, 2002 11:07 AM [facility] Feb 11, 2002 11:35 AM QUIT TOBACCO USE 1-7 YEARS AGO [facility] May 21, 2001 01:11 PM HISTORY OF SMOKING quit 5 [facility] Encounter Notes: All associated encounter notes [...] about ten years ago. He has a [employer]. He has never had a problem at [...] Sciatica 6. Benign essential hypertension (SNOMED CT [id number]) 7. Hypogonadism 8. Screening for Malignant Neoplasms [...] given. He is actively involved in the [place] [facility] so there is some duplication [...] counseling and coordinating care. /rajesh/ JEREMIE PEREIRA [facility] Signed: 06/21/2024 13:37 JEREMIE PEREIRA [place] [facility] [place] [facility]
--- OUTSIDE RECORDS SUMMARY | 2024-12-01 15:52 | XMS_ITS ---
Author Name [facility] [place] Address [address] [place] [address] Care Team Providers Care Irrigator Head Name Role Phone APOORVA MORENO Primary Care [...] ([facility]) Apr 17, 2013 [id number] Lauren COELHO PATIENT [facility] ([facility]) MEDICARE ADVANTAGE MCR ([facility]) Apr 17, 2013 [id number] Lauren COELHO PATIENT Selected Encounter This [...] glaucoma, left eye, mild stage PURNIMA ESTRADA [facility] Aug 17, 2024 01:53 PM SECONDARY Combined forms of age-related cataract, bilateral PURNIMA ESTRADA [facility] Plan of Treatment: Future Appointments (+ [...] 20, 2024 11:30 AM AMBULATORY - MEDICINE [facility] Vital Signs: All taken on the encounter date This section contains inpatient and outpatient Vital Signs collected on the date of the Encounter. Date/Time Temperature Pulse Blood Pressure Respiratory Rate SP02 Pain Height Weight Body Mass Index Source Aug 12, 2024 10:12 AM 138/82 [facility] Aug 12, 2024 10:12 AM 67 142/90 [facility] Social History: Smoking Status (Most current) [...] 17, 2023 11:30 AM VA-TOBACCO FORMER USER [facility] Tobacco Use History This section includes a history of the smoking, or tobacco-related health factors, that were collected on or before the date of the Encounter. The data comes from the [place] facility where the Encounter took place. Date/Time Smoking Status/Tobac co Use Comment Facility Nov 17, 2023 11:30 AM VA-TOBACCO QUIT 15 YRS OR MORE [facility] [place] [facility] Oct 30, 2022 03:20 PM VA-TOBACCO FORMER USER [facility] [place] [facility] Oct 30, 2022 03:20 PM VA-TOBACCO QUIT 15 YRS OR MORE [facility] [place] [facility] Jul 31, 2021 09:41 AM VA-TOBACCO FORMER USER [facility] [place] [facility] Jul 31, 2021 09:41 AM VA-TOBACCO QUIT 15 YRS OR MORE [facility] [place] [facility] Jun 29, 2020 11:00 AM VA-TOBACCO FORMER USER [facility] [place] [facility] Jun 29, 2020 11:00 AM VA-TOBACCO QUIT 15 YRS OR MORE [facility] [place] [facility] Feb 10, 2019 10:14 AM VA-TOBACCO FORMER USER [facility] [place] [facility] Feb 10, 2019 10:14 AM VA-TOBACCO QUIT 15 YRS OR MORE [facility] [place] [facility] Nov 27, 2017 11:12 AM QUIT TOBACCO USE > 7 YEARS AGO [facility] [place] [facility] Nov 05, 2016 11:01 AM QUIT TOBACCO USE > 7 YEARS AGO [facility] [place] [facility] Sep 17, 2015 01:03 PM QUIT TOBACCO USE > 7 YEARS AGO stopped 20 years ago [facility] [place] [facility] Feb 24, 2005 10:09 AM HISTORY OF SMOKING [facility] [place] [facility] May 28, 2004 08:08 AM QUIT TOBACCO USE > 7 YEARS AGO [facility] [place] [facility] Nov 27, 2003 01:12 PM HISTORY OF SMOKING [facility] [place] [facility] Mar 15, 2003 02:03 PM QUIT TOBACCO USE 1-7 YEARS AGO [facility] [place] [facility] Aug 24, 2002 11:07 AM HISTORY OF SMOKING [facility] [place] [facility] Feb 11, 2002 11:35 AM QUIT TOBACCO USE 1-7 YEARS AGO [facility] [place] [facility] May 21, 2001 01:11 PM [...] OU. Current Rx with last BCVA: OD: +[id number] VA: 20/20 OS: +1.25-1.32i144 [place]: 20/20 Add: +2.50 Intraocular pressures at [...] any problems arise, including dilated fundus exam. Campbell Education: After discussion and answering all 's questions, Campbell demonstrated and verbalized understanding of diagnosis and [...] non-VA provider. 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
--- OUTSIDE RECORDS SUMMARY | 2024-12-01 15:52 | XMS_ITS | Continuity of Care Document ---
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 [facility] Exposure to potentially hazardous substance Active Condition Oct 14, 2023 Entered By: ANALY SOW Comment: Connect Snomed Code to ICD 10 Code refer to note dated 07/20/23 [facility] former smoker Active Condition [facility] [...] TUR 10/2101 Dr Stephens at [facility]. 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 [facility] Tinnitus * (ICD-9-CM 388.30) Active Condition [facility] TINNITUS NOS Active Condition [facility] H. Pylori therapy 1998 Inactive Condition 07/11/2013 [facility] Hiatal Hernia Inactive Condition 01/13/2012 December 162011 Entered By: RADHA MORENO Comment: lap surgery about 2005 was curative. 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 Medication Details Route Status Patient Instructions Prescription Expires Prescription Number Last Dispense Date Ordering Provider Order Date Order Qty Source ALBUTEROL 90MCG/ACTUA T (CFC-F) INHL,ORAL,8 .5GM DOSE COUNTER INHALE 1 PUFF BY MOUTH TWICE DAILY NEEDED FOR BRONCHOS PASM PREVENTI ON RESPIR ATORY (INHAL ATION) 11/17/2024 [id number] AP[facility]ORVA [facility]ORENO 2023 [facility] AMLODIPINE BESYLATE 10MG TAB TAKE ONE TABLET BY MOUTH ONCE DAILY FOR BLOOD PRESSURE /HEART, DO NOT TAKE WITH GRAPEFRU IT JUICE ORAL ACTIVE 06/22/2025 [id number] 5 APOORVA MORENO 2023 90 [facility] AMLODIPINE BESYLATE 10MG TAB TAKE ONE TABLET BY MOUTH ONCE DAILY FOR BLOOD PRESSURE /HEART, DO NOT TAKE WITH GRAPEFRU IT JUICE ORAL DISCONT INUED (EDIT) 02/19/2025 [id number] 4 APOORVA MORENO 2023 30 [facility] AMLODIPINE BESYLATE 10MG TAB TAKE ONE TABLET BY MOUTH ONCE DAILY FOR BLOOD PRESSURE /HEART, DO NOT TAKE WITH GRAPEFRU IT JUICE ORAL DISCONT INUED (EDIT) 07/20/2024 [id number] 4 APOORVA MORENO 2022 30 [facility] AMLODIPINE BESYLATE 2.5MG TAB TAKE THREE TABLETS BY MOUTH ONCE DAILY FOR BLOOD PRESSURE /HEART, DO NOT TAKE WITH GRAPEFRU IT JUICE ORAL DISCONT INUED (EDIT) 11/17/2024 [id number] 4 APOORVA MORENO 2023 90 [facility] ATORVASTATI N CA 40MG TAB TAKE ONE-HALF TABLET BY MOUTH ONCE DAILY FOR CHOLESTE ROL REPLACES SIMVASTA TIN. ORAL SUSPEND ED 02/19/2025 [id number] 5 APOORVA MORENO 2023 45 [facility] ATORVASTATI N CA 40MG TAB TAKE ONE-HALF TABLET BY MOUTH ONCE DAILY FOR CHOLESTE ROL REPLACES SIMVASTA TIN. ORAL DISCONT INUED 07/20/2024 [id number] 4 APOORVA MORENO 2022 45 [facility] CARBOXYMETH YLCELLULOSE NA 0.5% SOLN,OPH INSTILL 1 DROP INTO EACH EYE FOUR TIMES DAILY NEEDED FOR DRY EYE OPHTHA LMIC ACTIVE 08/13/2025 [id number] 4 Samaria ESTRADA 2023 15 [facility] CARVEDILOL 12.5MG TAB TAKE ONE TABLET BY MOUTH ONCE DAILY FOR HIGH BLOOD PRESSURE ORAL ACTIVE 10/21/2025 [id number] 5 APOORVA MORENO 03/06/ 2025 90 [facility] CARVEDILOL 12.5MG TAB TAKE ONE TABLET BY MOUTH TWICE DAILY FOR HIGH BLOOD PRESSURE ORAL DISCONT INUED (EDIT) 06/22/2025 [id number] 5 JOSHAPOORVA Hooks 2023 180 [facility] DICLOFENAC NA 1% GEL,TOP APPLY 4 GRAMS TOPICALL Y THREE TIMES DAILY NEEDED FOR OSTEOART HRITIS - USE DOSING CARD PROVIDED IN BOX TOPICA L 01/14/2024 [id number] 4 RAOUL HOPKINS 2023 300 [facility] LATANOPROST 0.005% SOLN,OPH INSTILL 1 DROP INTO THE LEFT EYE AT BEDTIME TO REDUCE PRESSURE IN THE EYE OPHTHA LMIC ACTIVE 05/05/2025 [id number] 4 Samaria ESTRADA NDREW E 2023 7.5 [facility] LATANOPROST 0.005% SOLN,OPH INSTILL 1 DROP INTO THE LEFT EYE AT BEDTIME TO REDUCE PRESSURE IN THE EYE OPHTHA LMIC DISCONT INUED 02/14/2024 [id number] 4 Samaria ESTRADA NDREW E 2022 5 [facility] TESTOSTERON E (EQV-ANDROG EL) 1% 5GM/PKT GEL,TOP APPLY 1 PACKET TOPICALL Y ONCE DAILY TO SHOULDER . RUB IN UNTIL DRY, THEN WASH HANDS WITH SOAP AND WATER TOPICA L ACTIVE 12/22/2024 [id number] 5 JOSHAPOORVA Jessee 2023 30 [facility] TESTOSTERON E (EQV-ANDROG EL) 1% 5GM/PKT GEL,TOP APPLY 1 PACKET TOPICALL Y ONCE DAILY TO SHOULDER . RUB IN UNTIL DRY, THEN WASH HANDS WITH SOAP AND WATER TOPICA L DISCONT INUED 03/20/2024 [id number] SUSI ALBERTO MD 2023 30 [facility] ZOLPIDEM TARTRATE 10MG TAB TAKE ONE TABLET BY MOUTH AT BEDTIME ORAL ACTIVE 04/22/2025 [id number] 5 JOSHAPOORVA Hooks 2024 30 [facility] ZOLPIDEM TARTRATE 10MG TAB TAKE ONE TABLET BY MOUTH AT BEDTIME FOR SLEEP ORAL DISCONT [facility] 11/05/2024 [id number] 5 APOORVA MORENO 2023 30 [facility] IELD ZOLPIDEM TARTRATE 10MG TAB TAKE ONE TABLET BY MOUTH AT BEDTIME NEEDED FOR SLEEP ORAL DISCONT [facility] 11/11/2023 [id number] 4 APOORVA MORENO 2022 30 [facility] ZOLPIDEM TARTRATE 10MG TAB TAKE ONE TABLET BY MOUTH AT BEDTIME FOR SLEEP ORAL 04/22/2024 [id number] 4 APOORVA MORENO 2023 30 [facility] Allergies, Adverse Reactions, Alerts Combined list of allergies from Department of Defense and Veterans Affairs facilities. It does not include entries that were removed or entered in error. Substance Category Reaction Severity Reaction type Status Date Reported Comments Source AUGMENTIN Propensity to adverse reactions to drug (finding) Abdominal pain active 1 [facility] SULFONAMIDE/ RELATED ANTIMICROBIA LS Propensity to adverse reactions to drug (finding) HIVES active 8 [facility] Immunizations Combined list of available immunizations from the Department of Defense and Veterans Affairs facilities. 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 Status Comments Source COVID-19 (MODERNA), MRNA, LNP-S, PF, 50 MCG/0.5 ML (AGES 12+ YEARS) 2023 CLARA JULIO LEFT DELTO ID [id number] 312 complet ed [facility] INFLUENZA, HIGH-DOSE, TRIVALENT, PF 2023 CLARA JULIO LEFT DELTO ID [id number] 135 complet ed [facility], [facility] INFLUENZA, HIGH-DOSE, QUADRIVALENT 2022 LUIS DANIELADONISNABIL GARRETT E LEFT DELTO ID [id number] 197 complet ed [facility] COVID-19 (MODERNA), MRNA, LNP-S, PF, 50 MCG/0.5 ML (AGES 12+ YEARS) 4 2022 LEFT DELTO ID 312 complet ed HISTORICA L INFORMATI ON - FROM OTHER REGISTRY, [employer] Lot#: [id number] Mfr: [employer] [facility] INFLUENZA VACCINE, QUADRIVALENT, ADJUVANTED 2021 205 complet ed [facility] COVID-19 (MODERNA), MRNA, LNP-S, PF, 100 MCG/0.5ML DOSE OR 50 MCG/0.25ML DOSE 3 2020 207 complet ed [facility] COVID-19 (MODERNA), MRNA, LNP-S, [...] TD(ADULT) UNSPECIFIED FORMULATION 2014 [address] complet [address] [facility] ED. Probably TD. after a dogbite. [...] Reference Range Date Interpretation Specimen Comments Source LIVER FUNCTION PROTEIN [MASS/VOLUM E] IN SERUM OR PLASMA 7.2 g/dL 6.0 - 8.3 10/14 Specimen Type: SERUM No comment entered. Ordering Provider: Jimena MORENO Report Released Date/Time: Jun 21, 2024 02:06 PM Reporting Lab: [facility] [place] [facility] [address] [address] Performing Lab: [facility] [place] [facility] [address] [address] [facility] LIVER FUNCTION ALBUMIN [MASS/VOLUM E] IN SERUM OR PLASMA 4.1 g/dL 3.5 - 5.0 10/14 Specimen Type: SERUM No comment entered. Ordering Provider: Jimena MORENO Report Released Date/Time: Jun 21, 2024 02:06 PM Reporting Lab: [facility] [place] [facility] [address] [address] Performing Lab: [facility] [place] [facility] [address] [address] [facility] [place] [facility] LIVER FUNCTION ALKALINE PHOSPHATASE [ENZYMATIC ACTIVITY/VO LUME] IN SERUM OR PLASMA 64 U/L 40 - 150 10/14 Specimen Type: SERUM No comment entered. Ordering Provider: Jimena MORENO Report Released Date/Time: Jun 21, 2024 02:06 PM Reporting Lab: [facility] [place] [facility] [address] [address] Performing Lab: [facility] [place] [address] [address] [facility] [place] [facility] LIVER FUNCTION ASPARTATE AMINOTRANSF ERASE [ENZYMATIC ACTIVITY/VO LUME] IN SERUM OR PLASMA 19 U/L 5 - 34 10/14 Specimen Type: SERUM No comment entered. Ordering Provider: Jimena MORENO Report Released Date/Time: Jun 21, 2024 02:06 PM Reporting Lab: [facility] [place] [facility] [address] [address] Performing Lab: [facility] [place] [facility] [address] [address] [facility] [place] [facility] LIVER FUNCTION ALANINE AMINOTRANSF ERASE [ENZYMATIC ACTIVITY/VO LUME] IN SERUM OR PLASMA 26 U/L 10/14 Specimen Type: SERUM No comment entered. Ordering Provider: Jimena MORENO Report Released Date/Time: Jun 21, 2024 02:06 PM Reporting Lab: [facility] [place] [facility] [address] [address] Performing Lab: [facility] [place] [facility] [address] [address] [facility] LIVER FUNCTION BILIRUBIN.T OTAL [MASS/VOLUM E] IN SERUM OR PLASMA 0.7 mg/dL 0.2 - 1.2 10/14 Specimen Type: SERUM No comment entered. Ordering Provider: Jimena MORENO Report Released Date/Time: Jun 21, 2024 02:06 PM Reporting Lab: [facility] [place] [facility] [address] [address] Performing Lab: [facility] [address] [facility] LIPID PANEL FASTING CHOLESTEROL [MASS/VOLUM E] IN SERUM OR PLASMA 161 mg/dL 10/14 Specimen Type: SERUM No comment entered. Ordering Provider: Jimena MORENO Report Released Date/Time: Jun 21, 2024 02:06 PM Reporting Lab: [facility] [place] [facility] [address] [address] Performing Lab: [facility] [address] [facility] LIPID PANEL FASTING TRIGLYCERID E [MASS/VOLUM E] IN SERUM OR PLASMA 99 mg/dL 0 - 150 10/14 Specimen Type: SERUM No comment entered. Ordering Provider: Jimena MORENO Report Released Date/Time: Jun 21, 2024 02:06 PM Reporting Lab: [facility] [place] [facility] [address] [address] Performing Lab: [facility] [address] [facility]N [facility] LIPID PANEL FASTING CHOLESTEROL IN LDL [MASS/VOLUM E] IN SERUM OR PLASMA BY CALCULATION 95 mg/dL 0 - 129 10/14 Specimen Type: SERUM No comment entered. Ordering Provider: Jimena MORENO Report Released Date/Time: Jun 21, 2024 02:06 PM Reporting Lab: [facility] [place] [facility] [address] [address] Performing Lab: [facility] [place] [facility] [address] [address] [facility] [place] [facility] LIPID PANEL FASTING CHOLESTEROL .TOTAL/CHOL ESTEROL IN HDL [MASS RATIO] IN SERUM OR PLASMA 3.5 10/14 Specimen Type: SERUM No comment entered. Ordering Provider: Jimena MORENO Report Released Date/Time: Jun 21, 2024 02:06 PM Reporting Lab: [facility] [place] [facility] [address] [address] Performing Lab: [facility] W[facility]N [facility]USE[facility] [address] [address] [facility]ITALTRN [facility] LIPID PANEL FASTING CHOLESTEROL IN HDL [MASS/VOLUM E] IN SERUM OR PLASMA 46 mg/dL 40 - 60 10/14 Specimen Type: SERUM No comment entered. Ordering Provider: Jimena MORENO Report Released Date/Time: Jun 21, 2024 02:06 PM Reporting Lab: [facility]ITAL[facility] [address] [address] Performing Lab: [facility]ITAL[facility] [address] [address] [facility] TRN [facility]ITAL[facility] BASIC METABOLIC PANEL (fasting) UREA NITROGEN [MASS/VOLUM E] IN SERUM OR PLASMA 15 mg/dL 7 - 25 10/14 Specimen Type: SERUM No comment entered. Ordering Provider: Jimena MORENO Report Released Date/Time: Jun 21, 2024 02:06 PM Reporting Lab: [facility] [place] [facility] [address] [address] Performing Lab: [facility] [place] [facility] [address] [address] [facility] [place] [facility] BASIC METABOLIC PANEL (fasting) GLUCOSE [MASS/VOLUM E] IN SERUM OR PLASMA 110 mg/dL 65 - 100 10/14 H Specimen Type: SERUM No comment entered. Ordering Provider: Jimena MORENO Report Released Date/Time: Jun 21, 2024 02:06 PM Reporting Lab: [facility] [place] [facility] [address] [address] Performing Lab: [facility] [place] [facility] [address] [address] [facility] [facility] BASIC METABOLIC PANEL (fasting) SODIUM [MOLES/VOLU ME] IN SERUM OR PLASMA 139 mmol/L 135 - 145 10/14 Specimen Type: SERUM No comment entered. Ordering Provider: Jimena MORENO Report Released Date/Time: Jun 21, 2024 02:06 PM Reporting Lab: [facility] [place] [facility] [address] [address] Performing Lab: [facility] [place] [address] [address] [facility] [facility] BASIC METABOLIC PANEL (fasting) POTASSIUM [MOLES/VOLU ME] IN SERUM OR PLASMA 4.1 mmol/L 3.5 - 5.0 10/14 Specimen Type: SERUM No comment entered. Ordering Provider: Jimena MORENO Report Released Date/Time: Jun 21, 2024 02:06 PM Reporting Lab: [facility] [place] [facility] [address] [address] Performing Lab: [facility] [place] [facility] [address] [address] [facility] [place] [facility] BASIC METABOLIC PANEL (fasting) CHLORIDE [MOLES/VOLU ME] IN SERUM OR PLASMA 107 mmol/L 100 - 110 10/14 Specimen Type: SERUM No comment entered. Ordering Provider: Jimena MORENO Report Released Date/Time: Jun 21, 2024 02:06 PM Reporting Lab: [facility] [place] [facility] [address] [address] Performing Lab: [facility] [place] [facility] [address] [address] [facility] [facility] BASIC METABOLIC PANEL (fasting) CARBON DIOXIDE, TOTAL [MOLES/VOLU ME] IN SERUM OR PLASMA 23 meq/L 20 - 30 10/14 Specimen Type: SERUM No comment entered. Ordering Provider: Jimena MORENO Report Released Date/Time: Jun 21, 2024 02:06 PM Reporting Lab: [facility] BRANCHRMOUNTAIN VIEW HOSPITALTRN [facility] [address] Performing Lab: [facility] W[facility] [address] [facility]CHRGRAND[facility]ENTERN [facility] BASIC METABOLIC PANEL (fasting) CALCIUM [MASS/VOLUM E] IN SERUM OR PLASMA 9.5 mg/dL 8.5 - 10.2 10/14 Specimen Type: SERUM No comment entered. Ordering Provider: Jimena MORENO Report Released Date/Time: Jun 21, 2024 02:06 PM Reporting Lab: [facility] BRANCHRMOUNTAIN VIEW HOSPITALTRN [facility] [address] Performing Lab: [facility] W[facility] [address] [facility] BASIC METABOLIC PANEL (fasting) CREATININE [MASS/VOLUM E] IN SERUM OR PLASMA 0.68 mg/dL 0.50 - 1.40 10/14 Specimen Type: SERUM No comment entered. Ordering Provider: Jimena MORENO Report Released Date/Time: Jun 21, 2024 02:06 PM Reporting Lab: [facility] WSTRN [address] [address] Performing Lab: [facility] W[facility] [address] [facility] BRANCHRGRANDVIEW MEDICAL CENTERN [facility]PITALUSE [facility] BASIC METABOLIC PANEL (fasting) GLOMERULAR FILTRATION RATE/1.73 SQ M.PREDICTED [VOLUME RATE/AREA] IN SERUM, PLASMA OR BLOOD BY CREATININE- BASED FORMULA (CKD-EPI 2020) >90mL/ min 60 10/14 Specimen Type: SERUM No comment entered. Ordering Provider: Jimena MORENO Report Released Date/Time: Jun 21, 2024 02:06 PM Reporting Lab: [facility] [place] [facility] [address] [address] Performing Lab: [facility] [place] [facility] [address] [address] [facility] [place] [facility] LIPID PANEL FASTING CHOLESTEROL [MASS/VOLUM E] IN SERUM OR PLASMA 166 mg/dL 06/14 Specimen Type: SERUM No comment entered. Ordering Provider: Jimena MORENO Report Released Date/Time: Jun 08, 2024 11:04 AM Reporting Lab: [facility] [place] [facility] [address] [address] Performing Lab: [facility] [place] [facility] [address] [address] [facility]ITALUSE [facility] LIPID PANEL FASTING TRIGLYCERID E [MASS/VOLUM E] IN SERUM OR PLASMA 71 mg/dL 0 - 150 06/14 Specimen Type: SERUM No comment entered. Ordering Provider: Jimena MORENO Report Released Date/Time: Jun 08, 2024 11:04 AM Reporting Lab: [facility] [place] [facility] [address] [address] Performing Lab: [facility] [place] [facility] [address] [address] [facility]ITAL[facility] LIPID PANEL FASTING CHOLESTEROL IN LDL [MASS/VOLUM E] IN SERUM OR PLASMA BY CALCULATION 95 mg/dL 0 - 129 06/14 Specimen Type: SERUM No comment entered. Ordering Provider: Jimena MORENO Report Released Date/Time: Jun 08, 2024 11:04 AM Reporting Lab: [facility] [place] [facility] [address] [address] Performing Lab: [facility] [place] [facility] [address] [address] [facility] [place] [facility] LIPID PANEL FASTING CHOLESTEROL .TOTAL/CHOL ESTEROL IN HDL [MASS RATIO] IN SERUM OR PLASMA 2.9 06/14 Specimen Type: SERUM No comment entered. Ordering Provider: Jimena MORENO Report Released Date/Time: Jun 08, 2024 11:04 AM Reporting Lab: [facility] [place] [facility] [address] [address] Performing Lab: [facility] [place] [facility] [address] [address] [facility] [place] [facility] LIPID PANEL FASTING CHOLESTEROL IN HDL [MASS/VOLUM E] IN SERUM OR PLASMA 57 mg/dL 40 - 60 06/14 Specimen Type: SERUM No comment entered. Ordering Provider: Jimena MORENO Report Released Date/Time: Jun 08, 2024 11:04 AM Reporting Lab: [facility] [place] [facility] [address] [address] Performing Lab: [facility] [place] [facility] [address] [address] [facility] [place] [facility] LIVER FUNCTION PROTEIN [MASS/VOLUM E] IN SERUM OR PLASMA 6.8 g/dL 6.0 - 8.3 06/14 Specimen Type: SERUM No comment entered. Ordering Provider: Jimena MORENO Report Released Date/Time: Jun 08, 2024 11:04 AM Reporting Lab: [facility] [place] [facility] [address] [address] Performing Lab: [facility] [place] [facility] [address] [address] [facility] [place] [facility] LIVER FUNCTION ALBUMIN [MASS/VOLUM E] IN SERUM OR PLASMA 4.0 g/dL 3.5 - 5.0 06/14 Specimen Type: SERUM No comment entered. Ordering Provider: Jimena MORENO Report Released Date/Time: Jun 08, 2024 11:04 AM Reporting Lab: [facility] [place] [facility] [address] [address] Performing Lab: [facility] [place] [facility] [address] [address] [facility] [place] [facility] LIVER FUNCTION ALKALINE PHOSPHATASE [ENZYMATIC ACTIVITY/VO LUME] IN SERUM OR PLASMA 63 U/L 40 - 150 06/14 Specimen Type: SERUM No comment entered. Ordering Provider: Jimena MORENO Report Released Date/Time: Jun 08, 2024 11:04 AM Reporting Lab: [facility] [place] [facility] [address] [address] Performing Lab: [facility] [place] [facility] [address] [address] [facility] [place] [facility] LIVER FUNCTION ASPARTATE AMINOTRANSF ERASE [ENZYMATIC ACTIVITY/VO LUME] IN SERUM OR PLASMA 18 U/L 5 - 34 06/14 Specimen Type: SERUM No comment entered. Ordering Provider: Jimena MORENO Report Released Date/Time: Jun 08, 2024 11:04 AM Reporting Lab: [facility] [place] [address] [address] Performing Lab: [facility] [place] [address] [address] [facility] [place] [facility]CTION ALANINE AMINOTRANSF ERASE [ENZYMATIC ACTIVITY/VO LUME] IN SERUM OR PLASMA 30 U/L 06/14 Specimen Type: SERUM No comment entered. Ordering Provider: Jimena MORENO Report Released Date/Time: Jun 08, 2024 11:04 AM Reporting Lab: [facility] [place] [address] [address] Performing Lab: [facility] [place] [address] [address] [facility] [place] [facility] L[facility]CTION BILIRUBIN.T OTAL [MASS/VOLUM E] IN SERUM OR PLASMA 0.8 mg/dL 0.2 - 1.2 06/14 Specimen Type: SERUM No comment entered. Ordering Provider: Jimena MORENO Report Released Date/Time: Jun 08, 2024 11:04 AM Reporting Lab: [facility] [place] [address] [address] Performing Lab: [facility] [place] [facility] [address] [address] [facility] [facility] [place] [facility] BASIC METABOLIC PANEL (fasting) UREA NITROGEN [MASS/VOLUM E] IN SERUM OR PLASMA 21 mg/dL 7 - 25 06/14 Specimen Type: SERUM No comment entered. Ordering Provider: Jimena MORENO Report Released Date/Time: Jun 08, 2024 11:04 AM Reporting Lab: [facility] [place] [facility] [address] [address] Performing Lab: [facility] [place] [facility] [address] [address] [facility] [place] [facility] BASIC METABOLIC PANEL (fasting) GLUCOSE [MASS/VOLUM E] IN SERUM OR PLASMA 105 mg/dL 65 - 100 06/14 H Specimen Type: SERUM No comment entered. Ordering Provider: Jimena MORENO Report Released Date/Time: Jun 08, 2024 11:04 AM Reporting Lab: [facility] [place] [facility] [address] [address] Performing Lab: [facility] [place] [facility] [address] [address] [facility] [place] [facility] BASIC METABOLIC PANEL (fasting) SODIUM [MOLES/VOLU ME] IN SERUM OR PLASMA 138 mmol/L 135 - 145 06/14 Specimen Type: SERUM No comment entered. Ordering Provider: Jimena MORENO Report Released Date/Time: Jun 08, 2024 11:04 AM Reporting Lab: [facility] [place] [facility] [address] [address] Performing Lab: [facility] [place] [address] [address] [facility] [place] [facility] BASIC METABOLIC PANEL (fasting) POTASSIUM [MOLES/VOLU ME] IN SERUM OR PLASMA 4.2 mmol/L 3.5 - 5.0 06/14 Specimen Type: SERUM No comment entered. Ordering Provider: Jimena MORENO Report Released Date/Time: Jun 08, 2024 11:04 AM Reporting Lab: [facility] [place] [facility] [address] [address] Performing Lab: [facility] [place] [facility] [address] [address] [facility] [place] [facility] BASIC METABOLIC PANEL (fasting) CHLORIDE [MOLES/VOLU ME] IN SERUM OR PLASMA 107 mmol/L 100 - 110 06/14 Specimen Type: SERUM No comment entered. Ordering Provider: Jimena MORENO Report Released Date/Time: Jun 08, 2024 11:04 AM Reporting Lab: [facility] [place] [facility] [address] [address] Performing Lab: [facility] [place] [facility] [address] [address] [facility] [place] [facility] BASIC METABOLIC PANEL (fasting) CARBON DIOXIDE, TOTAL [MOLES/VOLU ME] IN SERUM OR PLASMA 22 meq/L 20 - 30 06/14 Specimen Type: SERUM No comment entered. Ordering Provider: Jimena MORENO Report Released Date/Time: Jun 08, 2024 11:04 AM Reporting Lab: [facility] [place] [facility] [address] [address] Performing Lab: [facility] [place] [facility] [address] [address] [facility] [place] [facility] BASIC METABOLIC PANEL (fasting) CREATININE [MASS/VOLUM E] IN SERUM OR PLASMA 0.74 mg/dL 0.50 - 1.40 06/14 Specimen Type: SERUM No comment entered. Ordering Provider: Jimena MORENO Report Released Date/Time: Jun 08, 2024 11:04 AM Reporting Lab: [facility] [place] [facility] [address] [address] Performing Lab: [facility] [place] [facility] [address] [address] [facility] [place] [facility] BASIC METABOLIC PANEL (fasting) GLOMERULAR FILTRATION RATE/1.73 SQ M.PREDICTED [VOLUME RATE/AREA] IN SERUM, PLASMA OR BLOOD BY CREATININE- BASED FORMULA (CKD-EPI 2020) >90mL/ min 60 06/14 Specimen Type: SERUM No comment entered. Ordering Provider: Jimena MORENO Report Released Date/Time: Jun 08, 2024 11:04 AM Reporting Lab: [facility] [place] [place] [address] [address] Performing Lab: [facility] [place] [address] [address] [facility] [place] [facility] PSA PROSTATE SPECIFIC AG [MASS/VOLUM E] IN SERUM OR PLASMA 0.14 ng/mL 0.00 - 4.00 02/15 Specimen Type: SERUM No comment entered. Ordering Provider: Jimena MORENO Report Released Date/Time: Nov 17, 2023 11:49 AM Reporting Lab: [facility] [place] [address] [address] Performing Lab: [facility] [place] [place] [address] [address] [facility] [place] [facility] BASIC METABOLIC PANEL (fasting) UREA NITROGEN [MASS/VOLUM E] IN SERUM OR PLASMA 18 mg/dL 7 - 25 02/15 Specimen Type: SERUM No comment entered. Ordering Provider: Jimena MORENO Report Released Date/Time: Nov 17, 2023 11:49 AM Reporting Lab: [facility] [place] [address] [address] Performing Lab: [facility] [place] [place] [address] [address] [facility] [place] [facility] BASIC METABOLIC PANEL (fasting) GLUCOSE [MASS/VOLUM E] IN SERUM OR PLASMA 94 mg/dL 65 - 100 02/15 Specimen Type: SERUM No comment entered. Ordering Provider: Jimena MORENO Report Released Date/Time: Nov 17, 2023 11:49 AM Reporting Lab: [facility] [place] [address] [address] Performing Lab: [facility] [place] [facility] [address] [address] [facility] [place] [facility] BASIC METABOLIC PANEL (fasting) SODIUM [MOLES/VOLU ME] IN SERUM OR PLASMA 141 mmol/L 135 - 145 02/15 Specimen Type: SERUM No comment entered. Ordering Provider: Jimena MORENO Report Released Date/Time: Nov 17, 2023 11:49 AM Reporting Lab: [facility] [place] [facility] [address] [address] Performing Lab: [facility] [place] [facility] [address] [address] [facility] [place] [facility] BASIC METABOLIC PANEL (fasting) POTASSIUM [MOLES/VOLU ME] IN SERUM OR PLASMA 4.1 mmol/L 3.5 - 5.0 02/15 Specimen Type: SERUM No comment entered. Ordering Provider: Jimena MORENO Report Released Date/Time: Nov 17, 2023 11:49 AM Reporting Lab: [facility] [place] [facility] [address] [address] Performing Lab: [facility] [place] [place] [address] [address] [facility] [place] [facility] BASIC METABOLIC PANEL (fasting) CHLORIDE [MOLES/VOLU ME] IN SERUM OR PLASMA 109 mmol/L 100 - 110 02/15 Specimen Type: SERUM No comment entered. Ordering Provider: Jimena MORENO Report Released Date/Time: Nov 17, 2023 11:49 AM Reporting Lab: [facility] [place] [facility] [address] [address] Performing Lab: [facility] [place] [facility] [address] [address] [facility] [place] [facility] BASIC METABOLIC PANEL (fasting) CARBON DIOXIDE, TOTAL [MOLES/VOLU ME] IN SERUM OR PLASMA 24 meq/L 20 - 30 02/15 Specimen Type: SERUM No comment entered. Ordering Provider: Jimena MORENO Report Released Date/Time: Nov 17, 2023 11:49 AM Reporting Lab: [facility] [place] [facility] [address] [address] Performing Lab: [facility] [place] [facility] [address] [address] [facility] [place] [facility] BASIC METABOLIC PANEL (fasting) CREATININE [MASS/VOLUM E] IN SERUM OR PLASMA 0.77 mg/dL 0.50 - 1.40 02/15 Specimen Type: SERUM No comment entered. Ordering Provider: Jimena MORENO Report Released Date/Time: Nov 17, 2023 11:49 AM Reporting Lab: [facility] [place] [facility] [address] [address] Performing Lab: [facility] [place] [facility] [address] [address] [facility] [place] [facility] BASIC METABOLIC PANEL (fasting) GLOMERULAR FILTRATION RATE/1.73 SQ M.PREDICTED [VOLUME RATE/AREA] IN SERUM, PLASMA OR BLOOD BY CREATININE- BASED FORMULA (CKD-EPI 2020) >90mL/ min 60 02/15 Specimen Type: SERUM No comment entered. Ordering Provider: Jimena MORENO Report Released Date/Time: Nov 17, 2023 11:49 AM Reporting Lab: [facility] [place] [facility] [address] [address] Performing Lab: [facility] [place] [facility] [address] [address] [facility] [place] [facility] LIVER FUNCTION PROTEIN [MASS/VOLUM E] IN SERUM OR PLASMA 6.8 g/dL 6.0 - 8.3 02/15 Specimen Type: SERUM No comment entered. Ordering Provider: Jimena MORENO Report Released Date/Time: Nov 17, 2023 11:49 AM Reporting Lab: [facility] [place] [facility] [address] [address] Performing Lab: [facility] [place] [facility] [address] [address] [facility] [place] [facility] LIVER FUNCTION ALBUMIN [MASS/VOLUM E] IN SERUM OR PLASMA 4.2 g/dL 3.5 - 5.0 02/15 Specimen Type: SERUM No comment entered. Ordering Provider: Jimena MORENO Report Released Date/Time: Nov 17, 2023 11:49 AM Reporting Lab: [facility] [place] [facility] [address] [address] Performing Lab: [facility] [place] [facility] [address] [address] [facility] [place] [facility] LIVER FUNCTION ALKALINE PHOSPHATASE [ENZYMATIC ACTIVITY/VO LUME] IN SERUM OR PLASMA 63 U/L 40 - 150 02/15 Specimen Type: SERUM No comment entered. Ordering Provider: Jimena MORENO Report Released Date/Time: Nov 17, 2023 11:49 AM Reporting Lab: [facility] [place] [facility] [address] [address] Performing Lab: [facility] [place] [facility] [address] [address] [facility] [place] [facility] LIVER FUNCTION ASPARTATE AMINOTRANSF ERASE [ENZYMATIC ACTIVITY/VO LUME] IN SERUM OR PLASMA 25 U/L 5 - 34 02/15 Specimen Type: SERUM No comment entered. Ordering Provider: Jimena MORENO Report Released Date/Time: Nov 17, 2023 11:49 AM Reporting Lab: [facility] [place] [facility] [address] [address] Performing Lab: [facility] [place] [facility] [address] [address] [facility] [place] [facility] LIVER FUNCTION ALANINE AMINOTRANSF ERASE [ENZYMATIC ACTIVITY/VO LUME] IN SERUM OR PLASMA 24 U/L 02/15 Specimen Type: SERUM No comment entered. Ordering Provider: Jimena MORENO Report Released Date/Time: Nov 17, 2023 11:49 AM Reporting Lab: [facility] [place] [facility] [address] [address] Performing Lab: [facility] [place] [facility] [address] [address] [facility] LIVER FUNCTION BILIRUBIN.T OTAL [MASS/VOLUM E] IN SERUM OR PLASMA 1.1 mg/dL 0.2 - 1.2 02/15 Specimen Type: SERUM No comment entered. Ordering Provider: Jimena MORENO Report Released Date/Time: Nov 17, 2023 11:49 AM Reporting Lab: [facility] [place] [place] [facility] [address] [address] Performing Lab: [facility] [address] [facility] LIPID PANEL FASTING CHOLESTEROL [MASS/VOLUM E] IN SERUM OR PLASMA 146 mg/dL 02/15 Specimen Type: SERUM No comment entered. Ordering Provider: Jimena MORENO Report Released Date/Time: Nov 17, 2023 11:49 AM Reporting Lab: [facility] [place] [address] [address] Performing Lab: [facility] [address] [address] [facility] LIPID PANEL FASTING TRIGLYCERID E [MASS/VOLUM E] IN SERUM OR PLASMA 96 mg/dL 0 - 150 02/15 Specimen Type: SERUM No comment entered. Ordering Provider: Jimena MORENO Report Released Date/Time: Nov 17, 2023 11:49 AM Reporting Lab: [facility] [place] [facility] [address] [address] Performing Lab: [facility] [address] [address] [facility] LIPID PANEL FASTING CHOLESTEROL IN LDL [MASS/VOLUM E] IN SERUM OR PLASMA BY CALCULATION 80 mg/dL 0 - 129 02/15 Specimen Type: SERUM No comment entered. Ordering Provider: Jimena MORENO Report Released Date/Time: Nov 17, 2023 11:49 AM Reporting Lab: [facility] [place] [facility] [address] [address] Performing Lab: [facility] [place] [facility] [address] [address] [facility] [place] [facility] LIPID PANEL FASTING CHOLESTEROL .TOTAL/CHOL ESTEROL IN HDL [MASS RATIO] IN SERUM OR PLASMA 3.1 02/15 Specimen Type: SERUM No comment entered. Ordering Provider: Jimena MORENO Report Released Date/Time: Nov 17, 2023 11:49 AM Reporting Lab: [facility] [place] [facility] [address] [address] Performing Lab: [facility] [place] [facility] [address] [address] [facility] [place] [facility] LIPID PANEL FASTING CHOLESTEROL IN HDL [MASS/VOLUM E] IN SERUM OR PLASMA 47 mg/dL 40 - 60 02/15 Specimen Type: SERUM No comment entered. Ordering Provider: Jimena MORENO Report Released Date/Time: Nov 17, 2023 11:49 AM Reporting Lab: [facility] [place] [facility] [address] [address] Performing Lab: [facility] [place] [facility] [address] [address] [facility] [place] [facility] Vital Signs Combined list of inpatient and outpatient Vital Signs from Department of Defense and Veterans Affairs, ranging from 12 months to all on record, depending upon the facility. Vital Sign Value Date Comments Source SYSTOLIC BLOOD PRESSURE 120 10/21/19 25 11:48:06 [facility] [place] [facility] DIASTOLIC BLOOD PRESSURE 88 025 11:48:06 [facility] [place] [facility] PULSE OXIMETRY 93 10/20/2024 11:48:06 [facility] [place] [facility] WEIGHT 201 10/20/2024 11:48:06 [facility] [place] [facility] BMI 32 kg/m2 10/20/2024 11:48:06 [facility] [place] [facility] PAIN 0 10/20/2024 11:48:06 [facility] TEMPERATURE 98.6 10/20/2024 11:48:06 [facility] [place] PULSE 70 10/20/2024 11:48:06 [facility] [place] RESPIRATION 16 10/20/2024 11:48:06 [facility] [place] [facility] SYSTOLIC BLOOD PRESSURE 142 08/12/20 24 10:12:42 [...] 02/19/2024 10:47:22 [facility] [place] [facility] Encounters Combined [...] [facility] En[facility] [id number] 06/13 [facility] En[facility] [id number] 06/13 [facility] En[facility] [id number] 06/19 [facility] En[facility] [id number] 06/29 [facility] OFFICE O/P EST LOW 20-29 MIN [id number] Diagnos is: ICD-10- CM I11.9 Hyperte nsive heart disease without heart failure APOORVA MORENO 07/20 [facility] En[facility] [id number] 07/20 [facility] En[facility] [id number] 07/22 [facility] En[facility] [id number] 08/05 [facility] OFF/OP EST MAY X REQ PHY/QHP [id number] Diagnos is: ICD-10- CM I11.9 Hyperte nsive heart disease without heart failure Cipriano GONZALES 08/21 [facility] En[facility] [id number] 09/04 [facility] En[facility] [id number] 09/18 [facility] En[facility] [id number] 09/29 [facility] COMPRE OPH EXAM EST PT 1/> [id number] 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, left eye, mild stage BORASKI,AN BRANDYN E 10/02 [facility] EXTENDED VISUAL FIELD XM [id number] 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, left eye, mild stage BORASKI,AN BRANDYN E 10/02 [facility] CMPTR OPHTH IMG OPTIC NERVE [id number] 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, left eye, mild stage BORASKI,AN BRANDYN E 10/02 [facility] En[facility] [id number] 10/20 [facility] En[facility] [id number] 10/28 [facility] En[facility] [id number] 11/15 [facility] OFFICE O/P EST LOW 20 MIN [id number] Diagnos is: ICD-10- CM I11.9 Hyperte nsive heart disease without heart failure APOORVA MORENO 11/16 [facility] En[facility] [id number] 11/16 [facility] Encounter [id number] 11/18 [facility] En[facility] [id number] 11/29 [facility] En[facility] [id number] 12/13 [facility] MTMS BY PHARM ADDL 15 MIN [id number] Diagnos is: ICD-10- CM 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 MADAI HOPKINS 12/14 [facility] En[facility] [id number] 02/10 [facility] OFFICE O/P NEW [place] 60 MIN [id number] Lauren PEREIRA 02/10 [facility] Out[facility] Encounter [id number] Diagnos is: ICD-10- CM M47.896 Other spondyl osis, lumbar region Lauren PEREIRA L 02/10 [facility] En[facility] [id number] [facility] En[facility] [id number] [facility] OFFICE O/P EST LOW 20 MIN [id number] Diagnos is: ICD-10- CM I11.9 Hyperte nsive heart disease without heart failure APOORVA MORENO 02/18 [facility] En[facility] [id number] [facility] Encounter [id number] [facility] En[facility] [id number] [facility] SELF CARE MNGMENT TRAINING [id number] Diagnos is: ICD-10- CM M47.896 Other spondyl osis, lumbar region ALEXANDRA SKELTON 05/05 [place] [facility] MNGMENT TRAINING [id number] Diagnos is: ICD-10- CM M47.896 Other spondyl osis, lumbar region ALEXANDRA SKELTON 05/20 [place] THERAPEUTI C EXERCISES [id number] Diagnos is: ICD-10- CM M47.896 Other spondyl osis, lumbar region ALEXANDRA SKELTON 06/10 [place] [facility] Outpatient Encounter [id number] 1.06/14 [facility] [place] [place] SELF CARE MNGMENT TRAINING [id number] Diagnos is: ICD-10- CM M47.896 Other spondyl osis, lumbar region ALEXANDRA SKELTON 06/16 [place] [facility] Outpatient Encounter [id number] 06/17 [facility] OFFICE O/P EST LOW 20 MIN [id number] Diagnos is: ICD-10- CM M47.26 Other spondyl osis with radicul opathy, lumbar region Lauren PEREIRA 06/21 [facility] OFFICE O/P EST LOW 20 MIN [id number] 1. Diagnos is: ICD-10- CM I11.9 Hyperte nsive heart disease without heart failure APOORVA MORENO 06/21 [facility] Outpatient Encounter [id number] 06/30 [facility] OFF/OP EST MAY X REQ PHY/QHP [id number] Diagnos is: ICD-10- CM I11.9 Hyperte nsive heart disease without heart failure CHARLESEBONYCipriano HUANG M 07/19 [facility] EXTENDED VISUAL FIELD XM [id number] 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, left eye, mild stage BORASKI,AN BRANDYN E 08/12 [facility] OFF/OP EST MAY X REQ PHY/QHP [id number] Diagnos is: ICD-10- CM I11.9 Hyperte nsive heart disease without heart failure JANETCipriano HUANG M 08/12 [facility] NQHP OL DIG ASSMT&MGMT 5-10 [id number] Diagnos is: ICD-10- CM 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 Social History Type Response Date Comment Source Tobacco smoking status [facility] NEVER USED OTHER TYPE 10/20/2024 [facility] [facility] [place] [facility]23 [facility] [place] [facility] MORE 10[facility]30/2022 [facility] [place] [facility]/2021 [facility] [place] [facility] 06[facility]29/2020 [facility] [place] [facility] History of tobacco use [facility]-TO[facility]ACCO QUIT 15 YRS OR MORE 02/10/2019 [facility] [place] [facility] History of tobacco use QUIT TOBACCO USE > 7 YEARS AGO 11/27/2017 [facility] [place] [facility] History of tobacco use QUIT TOBACCO USE > 7 YEARS AGO 11/05/2016 [facility] [place] [facility] History of tobacco use QUIT TOBACCO USE > 7 YEARS AGO 09/17/2015 stopped 20 years ago [facility] [place] [facility] History of tobacco use HISTORY OF SMOKING 02/24/2005 [facility] History of tobacco use QUIT TOBACCO USE > 7 YEARS AGO 05/28/2004 [facility] History of tobacco use HISTORY OF SMOKING 11/27/2003 [facility] [facility] History of tobacco use QUIT TOBACCO USE 1-7 YEARS AGO 03/15/2003 [place] [facility] [place] [facility] History of tobacco use HISTORY OF SMOKING 08/24/2002 [facility] History of tobacco use QUIT TOBACCO USE 1-7 YEARS AGO 02/11/2002 [facility] History of tobacco use HISTORY OF SMOKING 05/21/2001 quit 5 years ago [facility] Plan of Care List of future care activities from Department of [facility] facilities. Additional future care activities may be listed in the Assessment and Plan section. Date/Time Care Activity Care Activity Detail Facili ty 03/10/2025 AMBULATORY - MEDICINE AM[facility]ULATORY - MEDICI [facility]
--- OUTSIDE RECORDS SUMMARY | 2024-12-01 15:52 | XMS_ITS ---
Author Name [facility] [place] Address [address] [place] [address] Care Team Providers Care Workers Compensation Analyst Name Role Phone APOORVA LEE Primary Care [...] [place] MCR (WNR) MEDICARE ADVANTAGE MCR ([facility] Apr 17, 2013 [id number] Lauren COELHO PATIENT [facility] ([facility]) MEDICARE ADVANTAGE MCR ([facility]) Apr 17, 2013 [id number] Lauren COELHO PATIENT Selected Encounter This section includes the information on record at [place] for the Encounter. Date/Time Encounter Type Encounter Description Reason Provider Source Feb 19, 2024 11:00 AM OFFICE O/P EST LOW 20 MIN PRIMARY CARE/MEDICINE ICD-10-CM I11.9 Hypertensive heart disease without heart failure ROCKY LEEJules Hooks [facility] Encounter Template Text not used by [place] Assessments - Encounter Diagnoses This section includes the primary and secondary diagnoses documented for the Encounter. Date/Time Primary/Secondary Diagnosis Diagnosis Name Provider Source Feb 19, 2024 11:13 AM PRIMARY Hypertensive heart disease without heart failure JOSE DE JESUSROCKY HORAN [facility] [place] [facility] Feb 19, 2024 11:13 AM SECONDARY Carcinoma in situ of prostate [facility]OCKY LEE [facility] Plan of Treatment: Future Appointments (+ 6 months) and Future Tests (+/- 45 days) The Plan of Treatment section includes future care activities for the patient from all [place] [facility] This section includes future appointments [...] 2024 02:30 PM [facility]ATORY - [facility]AB [facility] May 20, 2024 02:30 PM AMBULATORY - REHAB [facility] Jun 10, 2024 02:00 PM AMBULATORY - REHAB [facility] Jun 16, 2024 02:30 PM AMBULATORY - REHAB [facility] Jun 21, 2024 01:00 PM AMBULATORY - MEDICINE [facility] [place] [facility] Jun 21, 2024 02:00 PM AMBULATORY - MEDICINE [facility] [place] [facility] Jul 19, 2024 10:00 AM AM[place]ULATORY [place]ICINE [place] [facility] [place] [facility] Aug 12, 2024 09:00 AM AM[place]ATORY [place]IC[place] [facility] [place] [facility] Aug 12, 2024 09:15 AM AM[place]ULATORY [place]ICINE [place] [facility] [place] [facility] Aug 12, 2024 09:30 AM AMBULATORY - MEDICINE [facility] [place] [facility] Aug 12, 2024 10:00 AM AMBULATORY - MEDICINE [facility] [place] [facility] Lab Results: +/- 30 days of the encounter This section includes the Chemistry and Hematology Lab Results on record with [place] for the patient. Radiology Reports and Pathology Reports are provided separately, in subsequent sections. Lab Results This section contains the Chemistry/Hematology Results that were resulted 30 days before or 30 daysafter the date of the Encounter. Date/Time Source Result Type Result - Unit Interpretation Reference Range Specimen Type Comment Feb 16, 2024 12:12 PM [facility] PSA SERUM Specimen Type: SERUM No comment entered. Ordering Provider: RADHA LEE Report Released Date/Time: Nov 17, 2023 11:49 AM Reporting Lab: [facility] [address] [facility] [address] Performing Lab: [address] [address] PSA 0.14 ng/mL 0.00-4.00 Feb 16, 2024 12:12 PM [facility] LIVER FUNCTION SERUM Specimen Type: SERUM No comment entered. Ordering Provider: APOORVA LEE Report Released Date/Time: Nov 17, 2023 11:49 AM Reporting Lab: [facility] [address] [facility] [address] Performing Lab: [address] [address] PROTEIN,TOTAL 6.8 g/dL 6.0-8.3 ALBUMIN 4.2 g/dL 3.5-5.0 ALKALINE PHOSPHATASE 63 U/L 40-150 AST 25 U/L 5-34 ALT 24 U/L BILIRUBIN, TOTAL 1.1 mg/dL 0.2-1.2 Feb 16, 2024 12:12 PM [facility] LIPID PANEL FASTING SERUM Specimen Type: SERU M No comment entered. Ordering Provider: APOORVA LEE Report Released Date/Time: Nov 17, 2023 11:49 AM Reporting Lab: [facility] [address] [facility] [address] Performing Lab: [address] [address] CHOLESTEROL 146 mg/dL TRIGLYCERIDE 96 mg/dL 0-150 LDL calculated 80 mg/dL 0-129 CHOL/HDL 3.1 HDL CHOLESTEROL 47 mg/dL 40-60 Feb 16, 2024 12:12 PM [facility] BASIC METABOLIC PANEL (fasting) SERUM Specime n Type: SERUM No comment entered. Ordering Provider: APOORVA LEE Report Released Date/Time: Nov 17, 2023 11:49 AM Reporting Lab: [facility] [address] [facility] [address] Performing Lab: [facility] [address] [facility] [address] UREA NITROGEN 18 mg/dL 7-25 GLUCOSE 94 [...] 161/95 20 97 5 67 195 31 [facility] Social History: Smoking Status (Most current) and [...] Bri it Nov 17, 2023 11:30 AM [place]-TOBACCO QUIT 15 YRS OR MORE [facility] Tobacco Use History This section includes a history of the smoking, or tobacco-related health factors, that were collected on or before the date of the Encounter. The data comes from the [place] facility where the Encounter took place. Date/Time Smoking Status/Tobac co Use Comment Facility Nov 17, 2023 11:30 AM [place]-TOBACCO QUIT 15 YRS OR MORE [facility] Oct 30, 2022 03:20 PM [place]-TOBACCO FORMER USER [facility] Oct 30, 2022 03:20 PM VA-TOBACCO QUIT 15 YRS OR MORE [facility] [place] [facility] Jul 31, 2021 09:41 AM VA-TOBACCO FORMER USER [facility] [place] [facility] Jul 31, 2021 09:41 AM VA-TOBACCO QUIT 15 YRS OR MORE [facility] [place] [facility] Jun 29, 2020 11:00 AM VA-TOBACCO FORMER USER [facility] [place] [facility] Jun 29, 2020 11:00 AM VA-TOBACCO QUIT 15 YRS OR MORE [facility] [place] [facility] Feb 10, 2019 10:14 AM VA-TOBACCO FORMER USER [facility] [place] [facility] [...] Source Feb 19, 2024 11:10 AM PHYSICIAN ENVIRONMENTAL SAMPLER NOTE: LOCAL TITLE: PA NOTE STANDARD TITLE: PHYSICIAN ENVIRONMENTAL SAMPLER NOTE DATE OF NOTE: FEB 19, 2024@11:10 [...] says is not advised and outside pain svc insists on pt, chiro etc, w hich [...] Sciatica 5. Benign essential hypertension (SNOMED CT 2136162) 6. Hypogonadism 7. Screening for Malignant Neoplasms [...] Urinary obstruction TURP 10/2101 Dr Stephens at [facility]. 16. GERD * 17. Insomnia * 18. [...] today:yes. /rajesh/ Apoorva Lee PA-C STAFF PHYSICIAN ENVIRONMENTAL SAMPLER Signed: 02/19/2024 11:13 APOORVA LEE [facility] Feb 19, 2024 10:50 AM PREVENTIVE MEDICINE NURSING NOTE: LOCAL TITLE: CLINICAL REMINDERS/NURSING STANDARD TITLE: PREVENTIVE MEDICINE NURSING NOTE DATE OF NOTE: FEB 19, 2024@10:50 ENTRY DATE: FEB 19, 2024@10:50:26 AUTHOR: THANG WAYNE EXP COSIGNER: URGENCY: STATUS: COMPLETED Advance Directive Screen AD: Patient does not have a completed advance directive on file at any facility, VA or outside. S/he is not interested in completing one at this time. The patient received education about Advance Directives and written notification of his/her rights. /rajesh/ Thang Wayne, Health Tool Machine Setup Operator ELECTRICIAN WIRING,PRIMARY CARE Signed: 02/19/2024 10:50 THANG WAYNE [facility]
--- OUTSIDE RECORDS SUMMARY | 2024-12-01 15:52 | XMS_ITS | Patient Health Record ---
Author Organization [facility] Address [address] [place] [id number] Care Team Providers Care Doctor Of Nurse Anesthesia Name Role Phone Cesilia Anguiano Primary Care Provider Unav ailRenato Moss Unavailable [phone] Allergies Allergen (clinical drug ingredient) Drug/Non Drug Allergy documented on EMR Reaction Allergy Type Onset Date Status erythromycin Erythromycin Unknown Drug Allergy A ctive Sulfa MOUTH SORES/RASH Drug Allergy Active sulfamethoxazole / trimethoprim Bactrim Unknown Drug Allergy Active amoxicillin / clavulanate Augmentin Unknown Drug Allergy Active Reason For Referral No Information Medications Medication SIG (Take, Route, Frequency, Duration) Notes [...] E Active Vitamin D3 Active Multivitamin Active Immunizations Vaccine Route Administration Date Status Comme nts Influenza Unknown 12/03/2021 Refused Problems Problem Type SNOMED Code ICD Code Onset Dates Problem Status W/U Status Risk Notes Problem 064530521 Encounter for screening for malignant neoplasm of colon (Z12.11) Active confirmed Problem 599544121 History of adenomatous polyp of colon (Z86.010) Active confirmed Problem 35167432 Irritable bowel syndrome without diarrhea (K58.9) Active confirmed Problem 225487881 Diverticulosis (K57.90) Active confirmed Problem 426935753004493 Preprocedural examination (Z01.818) Active confirmed Problem History of polyp of colon (084146802) History of colon polyps (Z86.010) Active confirmed Problem 903102825 Family history o f colon cancer (Z80.0) Active confirmed Problem 95544969 Change in bowel function (R19.4) Active confirmed Problem 28859048 Diarrhea, unspecified type (R19.7) Active confirmed Problem Diverticulosis of colon (592606118) Diverticulosis of colon (K57.30) Active confirmed Problem 406090235 LLQ abdominal pain (R10.32) Active confirmed Plan Of Treatment Pending Test Test Name Order Date BUN [...] Insured Coverage Start Date Coverage End Date [facility] [address] [place] [address] [id number] HANH COELHO Self - patient is the insured Medical (General) History Medical History History ICD Code HTN Denies UT,DM,CVA,renal disease Diverticulitis with surgery as below Hyperlipidemia BPH Neg colonoscopy with Dr. Nain taylor in 05/2012--previous polyps removed at the [facility] EGD's in [place] prior to the [facility] ib[facility] CT in 05/2013 and 11/2015 fercho wed only diverticulosis and renal cysts--he has also had negative abdominal ultrasound and MRIs ? [facility]---sees Dr. Gallagher-had phleb otomy--presently inactive Prostate cancer--finished XRT in 09/2015 Pleural effusion on the left -2014--saw Dr. Worthy at [facility]--had CT scans and a thoracentesis--no cancer--being [...]
--- OUTSIDE RECORDS SUMMARY | 2024-12-01 15:52 | XMS_ITS ---
Author Name [facility] [place] Address [address] [place] [address] Care Team Providers Care Professor Of Pathology Name Role Phone APOORVA LEE Primary Care [...] [place] MCR (WNR) MEDICARE ADVANTAGE MCR ([facility]) Apr 17, 2013 [id number] Lauren COELHO PATIENT [facility] ([facility]) MEDICARE ADVANTAGE MCR ([facility]) Apr 17, 2013 [id number] [phone] Lauren COELHO PATIENT Selected Encounter This section includes the information on record at [place] for the Encounter. Date/Time Encounter Type Encounter Description Reason Provider Source Jul 19, 2024 10:00 AM OFF/OP EST DECEMBER X REQ PHY/QHP PRIMARY CARE/MEDICINE ICD-10-CM I11.9 Hypertensive heart disease without heart failure YOVANY GONZALES E Encounter Template Text not used by [place] Assessments - Encounter Diagnoses This section includes the primary and secondary diagnoses documented for the Encounter. Date/Time Primary/Secondary Diagnosis Diagnosis Name Provider Source Jul 19, 2024 10:17 AM PRIMARY Hypertensive heart disease without heart failure YOVANY GONZALES [facility] Plan of Treatment: Future Appointments (+ 6 months) and Future Tests (+/- 45 days) The Plan of Treatment section includes future care activities for the patient from all [place] [facility]. This section includes future appointments and future orders which are active, pending or scheduled. Future Appointments This section includes appointments that were scheduled to occur 6 months from the date of the Encounter, up to a maximum of 20 appointments. The data comes from all [place] treatment facilities. Appointment Date/Time Appointment Type Appointme nt Facility Name Aug 12, 2024 09:00 AM AMBULATORY - MEDICINE [facility] Aug 12, 2024 09:15 AM AMBULATORY MEDICINE [facility] Aug 12, 2024 09:30 AM [facility]ORY MEDICINE [facility] Aug 12, 2024 10:00 AM AMBULATORY MEDICINE [facility] Oct 20, 2024 11:30 AM AMBULATORY MEDICINE [facility] Vital Signs: All taken on the encounter date This section contains inpatient and outpatient Vital Signs collected on the date of the Encounter. Date/Time Temperature Pulse Blood Pressure Respiratory Rate SP02 Pain Height Weight Body Mass Index Source Jul 19, 2024 10:16 AM 60 140[facility] Social History: Smoking Status (Most current) and Tobacco Use (All prior to encounter date) This section includes the most current, and the historical, smoking and tobacco- related health factors from the [place] facility where the Encounter took place. Current Smoking Status This section includes the most current smoking, or tobacco-related health factor, from the [place] facility where the Encounter took place. Date/Time Current Smoking Status Comment Bri macedo Nov 17, 2023 11:30 AM [place]-TOBACCO FORMER USER [facility] Tobacco Use History This section includes a history of the smoking, or tobacco-related health factors, that were collected on or before the date of the Encounter. The data comes from the [place] facility where the Encounter took place. Date/Time Smoking Status/Tobac co Use Comment Facility Nov 17, 2023 11:30 AM VA-TOBACCO QUIT 15 YRS OR MORE [facility] [place] [facility] Oct 30, 2022 03:20 PM VA-TOBACCO FORMER USER [facility] [place] [facility] Oct 30, 2022 03:20 PM VA-TOBACCO QUIT 15 YRS OR MORE [facility] [place] [facility] Jul 31, 2021 09:41 AM VA-TOBACCO FORMER USER [facility] [place] [facility] Jul 31, 2021 09:41 AM VA-TOBACCO QUIT 15 YRS OR MORE [facility] [place] [facility] Jun 29, 2020 11:00 AM VA-TOBACCO FORMER USER [facility] [place] [facility] Jun 29, 2020 11:00 AM VA-TOBACCO QUIT 15 YRS OR MORE [place] [facility] [facility] Feb 10, 2019 10:14 AM VA-TOBACCO FORMER USER [facility] [place] [facility] Feb 10, 2019 10:14 AM VA-TOBACCO QUIT 15 YRS OR MORE [facility] [place] [facility] Nov 27, 2017 11:12 AM QUIT TOBACCO USE > 7 YEARS AGO [facility] [place] [facility] Nov 05, 2016 11:01 AM QUIT TOBACCO USE > 7 YEARS AGO [facility] [place] [facility] Sep 17, 2015 01:03 PM QUIT TOBACCO USE > 7 YEARS AGO stopped 20 years ago [facility] [place] [facility] Feb 24, 2005 10:09 AM HISTORY OF SMOKING [facility] [place] [facility] May 28, 2004 08:08 AM QUIT TOBACCO USE > 7 YEARS AGO [facility] [place] [facility] Nov 27, 2003 01:12 PM HISTORY OF SMOKING [facility] [place] [facility] Mar 15, 2003 02:03 PM QUIT TOBACCO USE 1-7 YEARS AGO [facility] [place] [facility] Aug 24, 2002 11:07 AM HISTORY OF SMOKING [facility] [place] [facility] Feb 11, 2002 11:35 AM QUIT TOBACCO USE 1-7 YEARS AGO [facility] May 21, 2001 01:11 PM HISTORY OF SMOKING quit 5 years ago [facility] Encounter Notes: All associated encounter notes This section contains the clinical notes associated to the Encounter. Date/Time Encounter Note(s) Provider Source Jul 27, 2024 10:19 AM ADDENDUM: LOCAL TITLE: Addendum STANDARD TITLE: ADDENDUM DATE OF NOTE: JUL 27, 2024@10:19:58 ENTRY DATE: JUL 27, 2024@10:19:59 AUTHOR: JED TORRES EXP COSIGNER: URGENCY: STATUS: COMPLETED Talked with Pieter, advised above. Alert to [facility] please place [...] blood pressure check per PCP Apoorva Lee. Pieter has history of hypertension. Presently he is taking this medication for elevated B/P: AMLODIPINE BESYLATE TAB 10MG TAKE ONE TABLET BY MOUTH ONCE DAILY CARVEDILOL TAB 12.5MG TAKE ONE TABLET BY MOUTH TWICE DAILY [place] reports that increase to Carvedilol at last [...] 17:30 /rajesh/ Apoorva Lee PA-C STAFF PHYSICIAN RUBBER STAMP DIES INSPECTOR 07/26/2024 ADDENDUM STATUS: COMPLETED Please ask him [...] Thanks. /rajesh/ Apoorva Lee PA-C STAFF PHYSICIAN RUBBER STAMP DIES INSPECTOR Signed: 07/26/2024 17:29 Receipt Acknowledged By: 07/27/2024 08:32 /es/ PURNIMA ESTRADA OD STAFF HEAD GREENSKEEPER 07/27/2024 10:20 /es/ Jed FARFAN RN CNL Primary Care RN for YOLY GONZALES 07/27/2024 ADDENDUM STATUS: COMPLETED Please telephone to the and schedule him with first available opening with any available provider within the next 2 months or instruct the to call the optometry clinic every morning between 8 and 9 AM to see if there are cancellations and schedule him accordingly. /rajesh/ PURNIMA ESTRADA OD STAFF HEAD GREENSKEEPER Signed: 07/27/2024 08:34 Receipt Acknowledged By: 07/27/2024 10:04 /es/ LORNA JANSEN ADVANCED BOARDING KENNEL OR CATTERY OPERATOR 07/27/2024 10:17 /rajesh/ ALIZA EM CRITICAL SYSTEMS TECHNICIAN JED TORRES [facility] [place] [facility] Jul 27, 2024 08:32 AM ADDENDUM: LOCAL TITLE: Addendum STANDARD TITLE: ADDENDUM DATE OF NOTE: JUL 27, 2024@08:32:40 ENTRY DATE: JUL 27, 2024@08:32:41 AUTHOR: PURNIMA ESTRADA COSIGNER: URGENCY: STATUS: COMPLETED Please telephone to the [place] and schedule him with first available opening with any available provider within the next 2 months or instruct the [place] to call the optometry clinic every morning between 8 and 9 AM to see if there are cancellations and schedule him accordingly. /es/ PURNIMA ESTRADA OD STAFF HEAD GREENSKEEPER Signed: 07/27/2024 08:34 Receipt Acknowledged By: 07/27/2024 10:04 /rajesh/ LORNA JANSEN ADVANCED BOARDING KENNEL OR CATTERY OPERATOR 07/27/2024 10:17 /es/ ALIZA EM CRITICAL SYSTEMS TECHNICIAN --- Original Document --- 07/19/24 AMBULATORY/OUTPATIENT CARE [...] 17:30 /rajesh/ Apoorva Lee PA-C STAFF PHYSICIAN RUBBER STAMP DIES INSPECTOR 07/26/2024 ADDENDUM STATUS: COMPLETED Please ask him [...] Thanks. /rajesh/ Apoorva Lee PA-C STAFF PHYSICIAN RUBBER STAMP DIES INSPECTOR Signed: 07/26/2024 17:29 Receipt Acknowledged By: 07/27/2024 08:32 /rajesh/ PURNIMA ESTRADA OD STAFF HEAD GREENSKEEPER * AWAITING SIGNATURE * YOLY GONZALES ANDREW E [place] [facility] [place] [facility] Jul 26, 2024 05:25 PM ADDENDUM: LOCAL TITLE: Addendum STANDARD TITLE: ADDENDUM DATE OF NOTE: JUL 26, 2024@17:25:19 ENTRY DATE: JUL 26, 2024@17:25:20 AUTHOR: APOORVA LEE COSIGNER: URGENCY: STATUS: COMPLETED Please ask him [...] please have him rebooked? Thanks. /rajesh/ Apoorva VanWagner, PA-C STAFF PHYSICIAN RUBBER STAMP DIES INSPECTOR Signed: 07/26/2024 17:29 Receipt Acknowledged By: 07/27/2024 08:32 /es/ PURNIMA ESTRADA OD STAFF HEAD GREENSKEEPER 07/27/2024 10:20 /es/ Jed Torres MSN RN CNL Primary Care RN for YOLY GONZALES --- Original Document --- 07/19/24 AMBULATORY/OUTPATIENT CARE NOTE: Blood pressure check: F: Nursing Clinic D: [place] here for blood pressure check per PCP [...] 163/85. Will review results with pcp. R: [place] tolerated well and left area ab devin. /es/ YOLY GONZALES RN REGISTERED NURSE Signed: 07/19/2024 10:17 Receipt Acknowledged By: 07/26/2024 17:30 /rajesh/ Apoorva Lee PA-C STAFF PHYSICIAN RUBBER STAMP DIES INSPECTOR 07/27/2024 ADDENDUM STATUS: COMPLETED Please telephone to the [place] and schedule him with first available opening with any available provider within the next 2 months or instruct the to call the optometry clinic every morning between 8 and 9 AM to see if there are cancellations and schedule him accordingly. /es/ PURNIMA ESTRADA OD STAFF HEAD GREENSKEEPER Signed: 07/27/2024 08:34 Receipt Acknowledged By: 07/27/2024 10:04 /es/ LORNA JANSEN ADVANCED BOARDING KENNEL OR CATTERY OPERATOR 07/27/2024 10:17 /es/ ALIZA EM CRITICAL SYSTEMS TECHNICIAN 07/27/2024 ADDENDUM STATUS: COMPLETED Talked with Neldat, advised above. Alert to [facility] please place Pieter in [facility] Nursing clinic on 08/12 @ 1000 for BP check. /es/ Jed Torres MSN RN CNL Primary Care RN Signed: 07/27/2024 10:20 Receipt Acknowledged By: * AWAITING SIGNATURE * ARMANDO PENALOZA WILLIAM F [facility] [place] [facility] Jul 19, 2024 10:03 AM PRIMARY CARE OUTPATIENT NOTE: LOCAL TITLE: AMBULATORY/OUTPATIENT CARE NOTE STANDARD TITLE: PRIMARY CARE OUTPATIENT NOTE DATE OF NOTE: JUL 19, 2024@10:03 ENTRY DATE: JUL 19, 2024@10:03:14 AUTHOR: YOLY GONZALES COSIGNER: URGENCY: STATUS: COMPLETED AMBULATORY/OUTPATIENT CARE NOTE Has ADDENDA Blood pressure check: F: Nursing Clinic D: [place] here for blood pressure check per PCP Apoorva Lee. Pieter has history of hypertension. Presently [...] 163/85. Will review results with pcp. R: [place] tolerated well and left area ab devin. /es/ YOLY GONZALES, RN REGISTERED NURSE Signed: 07/19/2024 10:17 Receipt Acknowledged By: 07/26/2024 17:30 /rajesh/ Apoorva Lee PA-C STAFF PHYSICIAN RUBBER STAMP DIES INSPECTOR 07/26/2024 ADDENDUM STATUS: COMPLETED Please ask him [...] Thanks. /rajesh/ Apoorva Lee PA-C STAFF PHYSICIAN RUBBER STAMP DIES INSPECTOR Signed: 07/26/2024 17:29 Receipt Acknowledged By: 07/27/2024 08:32 /es/ PURNIMA ESTRADA OD STAFF HEAD GREENSKEEPER 07/27/2024 10:20 /es/ Jed FARFAN RN CNL Primary Care RN for YOLY GONZALES 07/27/2024 ADDENDUM STATUS: COMPLETED Please telephone to the [place] and schedule him with first available opening with any available provider within the next 2 months or instruct the [place] to call the optometry clinic every morning between 8 and 9 AM to see if there are cancellations and schedule him accordingly. /rajesh/ PURNIMA ESTRADA OD STAFF HEAD GREENSKEEPER Signed: 07/27/2024 08:34 Receipt Acknowledged By: 07/27/2024 10:04 /es/ LORNA JANSEN ADVANCED BOARDING KENNEL OR CATTERY OPERATOR 07/27/2024 10:17 /es/ ALIZA EM CRITICAL SYSTEMS TECHNICIAN 07/27/2024 ADDENDUM STATUS: COMPLETED Talked with Vet, advised above. Alert to [facility] please place Vet in [facility] Nursing clinic on 08/12 @ 1000 for BP check. /rajesh/ Jed FARFAN RN CNL Primary Care RN Signed: 07/27/2024 10:20 Receipt Acknowledged By: * AWAITING SIGNATURE * ARMANDO PENALOZA LAUREN M [facility]
--- OUTSIDE RECORDS SUMMARY | 2024-12-01 15:52 | XMS_ITS ---
Author Name [facility] [place] Address [address] [place] [address] Care Team Providers Care Automobile Upholsterer Apprentice Name Role Phone ANUPAM LEE Primary Care [...] [place] MCR (WNR) MEDICARE ADVANTAGE MCR ([facility]) Apr 17, 2013 [id number] [phone] Lauren COELHO PATIENT [facility] ([facility]) MEDICARE ADVANTAGE MCR ([facility]) Apr 17, 2013 [id number] Lauren COELHO PATIENT Selected Encounter This section includes the information on record at [place] for the Encounter. Date/Time Encounter Type Encounter Description Reason Provider Source Aug 12, 2024 10:00 AM OFF/OP EST DECEMBER X REQ PHY/QHP PRIMARY CARE/MEDICINE ICD-10-CM I11.9 Hypertensive heart disease without heart failure YOVANY GONZALES IHE Encounter Template Text not used by [place] Assessments - Encounter Diagnoses This section includes the primary and secondary diagnoses documented for the Encounter. Date/Time Primary/Secondary Diagnosis Diagnosis Name Provider Source Aug 12, 2024 10:16 AM PRIMARY Hypertensive heart disease without heart failure YOVANY GONZALES [facility] Plan of Treatment: Future Appointments (+ 6 months) and Future Tests (+/- 45 days) The Plan of Treatment section includes future care activities for the patient from all [place] [facility]. This section includes future appointments [...] 20, 2024 11:30 AM AMBULATORY - MEDICINE [facility] Vital Signs: All taken on the encounter date This section contains inpatient and outpatient Vital Signs collected on the date of the Encounter. Date/Time Temperature Pulse Blood Pressure Respiratory Rate SP02 Pain Height Weight Body Mass Index Source Aug 12, 2024 10:12 AM 138/[facility] Aug 12, 2024 10:12 AM 67 142/90 [facility] Social History: Smoking Status (Most current) [...] Facil it Nov 17, 2023 11:30 AM [place]-TOBACCO FORMER USER [facility] Tobacco Use History This section includes a history of the smoking, or tobacco-related health factors, that were collected on or before the date of the Encounter. The data comes from the [place] facility where the Encounter took place. Date/Time Smoking Status/Tobac co Use Comment Facility Nov 17, 2023 11:30 AM [place]-TOBACCO QUIT 15 YRS OR MORE [facility] [place] [facility] Oct 30, 2022 03:20 PM [place]-TOBACCO FORMER USER [facility] [place] [facility] Oct 30, 2022 03:20 PM VA-TOBACCO QUIT 15 YRS OR MORE [facility] [place] [facility] Jul 31, 2021 09:41 AM VA-TOBACCO FORMER USER [facility] [place] [facility] Jul 31, 2021 09:41 AM VA-TOBACCO QUIT 15 YRS OR MORE [facility] [place] [facility] Jun 29, 2020 11:00 AM VA-TOBACCO FORMER USER [facility] [place] [facility] Jun 29, 2020 11:00 AM VA-TOBACCO QUIT 15 YRS OR MORE [facility] [place] [facility] Feb 10, 2019 10:14 AM VA-TOBACCO FORMER USER [facility] [place] [facility] Feb 10, 2019 10:14 AM VA-TOBACCO QUIT 15 YRS OR MORE [facility] [place] [facility] Nov 27, 2017 11:12 AM QUIT TOBACCO USE > 7 YEARS AGO [facility] [place] [facility] Nov 05, 2016 11:01 AM QUIT TOBACCO USE > 7 YEARS AGO [facility] [place] [facility] Sep 17, 2015 01:03 PM QUIT TOBACCO USE > 7 YEARS AGO stopped 20 years ago [facility] [place] [facility] Feb 24, 2005 10:09 AM HISTORY OF SMOKING [facility] [place] [facility] May 28, 2004 08:08 AM QUIT TOBACCO USE > 7 YEARS AGO [facility] [place] [facility] Nov 27, 2003 01:12 PM HISTORY OF SMOKING [facility] [place] [facility] Mar 15, 2003 02:03 PM QUIT TOBACCO USE 1-7 YEARS AGO [facility] [place] [facility] Aug 24, 2002 11:07 AM HISTORY OF SMOKING [facility] [place] [facility] Feb 11, 2002 11:35 AM QUIT TOBACCO USE 1-7 YEARS AGO [facility] [place] [facility] May 21, 2001 01:11 PM HISTORY OF SMOKING quit 5 years ago [facility] [place] [facility] Encounter Notes: All associated encounter [...] 150/94. /rajesh/ Anupam Lee PA-C STAFF PHYSICIAN DISTRIBUTION CLERK Signed: 08/12/2024 10:55 Receipt Acknowledged By: 08/12/2024 [...] TAKE ONE TABLET BY MOUTH TWICE DAILY [place] has been taking Carvedilol 12.5mg BID but this is making him feel nausea and a feeling of low grade fever . He has stuck with this dose despite SE, hoping it would get better with time. Home BP 141/79. had cortisone shot in left lumbar area yesterday. A: B/P today is 138/82 in his left arm and 142/90 in his right arm (manual cuff used with arm elevated at heart level) Pulse is 67. Will review results with pcp. R: [place] tolerated well and left area ab devin. /rajesh/ YOLY GONZALES RN REGISTERED NURSE Signed: 08/12/2024 10:16 Receipt Acknowledged By: 08/12/2024 10:56 /yenny Lee PA-C STAFF PHYSICIAN DISTRIBUTION CLERK 08/12/2024 ADDENDUM STATUS: UNSIGNED You may not VIEW this UNSIGNED Addendum. ANUPAM LEE [place] [facility] [place] [facility] Aug 12, 2024 10:02 AM [facility]: LOCAL TITLE: AMBULATORY/OUTPATIENT CARE NOTE STANDARD [...] TAKE ONE TABLET BY MOUTH TWICE DAILY [place] has been taking Carvedilol 12.5mg BID but this is making him feel nausea and a feeling of low grade fever . He has stuck with this dose despite SE, hoping it would get better with time. Home BP 141/79. [place] had cortisone shot in left lumbar area yesterday. A: B/P today is 138/82 in his left arm and 142/90 in his right arm (manual cuff used with arm elevated at heart level) Pulse is 67. Will review results with pcp. R: [place] tolerated well and left area ab devin. /rajesh/ YOLY GONZALES RN REGISTERED NURSE Signed: 08/12/2024 10:16 Receipt Acknowledged By: 08/12/2024 10:56 /rajesh/ Anupam Lee PA-C STAFF PHYSICIAN DISTRIBUTION CLERK 08/12/2024 ADDENDUM STATUS: COMPLETED Please ask him to dose carvedilol once daily for a week, then stop. Monitor BP. Does nausea and fever go away? Call if bp goes over 150/94. /yenny Lee PA-C STAFF PHYSICIAN DISTRIBUTION CLERK Signed: 08/12/2024 10:55 Receipt Acknowledged By: 08/12/2024 13:12 /rajesh/ YOLY GONZALES RN REGISTERED NURSE 08/12/2024 ADDENDUM STATUS: COMPLETED Spoke to and relayed message per provider. understood and agreed to plan. /rajesh/ YOLY GONZALES RN REGISTERED NURSE Signed: 08/12/2024 13:12 YOLY GONZALES [place] [facility]
--- OUTSIDE RECORDS SUMMARY | 2024-12-01 15:52 | XMS_ITS ---
Author Name [facility] [place] Organization [place] Address [address] [place] [address] Care Team Providers Care Sustainable Systems Analyst Name Role Phone APOORVA MORENO Primary Care [...] [place] M[place] (WNR) MEDICARE ADVANTAGE MCR ([facility]) Apr 17, 2013 [id number] Lauren COELHO PATIENT [facility] ([facility]) MEDICARE ADVANTAGE MCR ([facility]) Apr 17, 2013 [id number] [phone] Lauren COELHO PATIENT Selected Encounter This section includes the information on record at [place] for the Encounter. 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 Date/Time Primary/Secondary Diagnosis Diagnosis Name Provider Source Aug 17, 2024 01:54 PM PRIMARY Low-tension glaucoma, left eye, mild stage PURNIMA ESTRADA [facility] Plan of Treatment: Future Appointments (+ 6 months) and Future Tests (+/- 45 days) The Plan of Treatment section includes future care activities for the patient from all [place] [facility]. This section includes future appointments and future orders which are active, pending or scheduled. Future Appointments This section includes appointments that were scheduled to occur 6 months from the date of the Encounter, up to a maximum of 20 appointments. The data comes from all [place] treatment facilities. Appointment Date/Time Appointment Type Appointme nt Facility Name Oct 20, 2024 11:30 AM AMBULATORY - MEDICINE [facility] Vital Signs: All taken on the encounter date This section contains inpatient and outpatient Vital Signs collected on the date of the Encounter. Date/Time Temperature Pulse Blood Pressure Respiratory Rate SP02 Pain Height Weight Body Mass Index Source Aug 12, 2024 10:12 AM 138/82 [facility] Aug 12, 2024 10:12 AM 67 142/90 [facility] Social History: Smoking Status (Most current) [...] Facil it Nov 17, 2023 11:30 AM [place]-TOBACCO FORMER USER [facility] Tobacco Use History This section includes a history of the smoking, or tobacco-related health factors, that were collected on or before the date of the Encounter. The data comes from the [place] facility where the Encounter took place. Date/Time Smoking Status/Tobac co Use Comment Facility Nov 17, 2023 11:30 AM [place]-TOBACCO QUIT 15 YRS OR MORE [facility] Oct 30, 2022 03:20 PM [place]-TOBACCO FORMER USER [facility] [place] [facility] Oct 30, 2022 03:20 PM VA-TOBACCO QUIT 15 YRS OR MORE [facility] [place] [facility] Jul 31, 2021 09:41 AM VA-TOBACCO FORMER USER [facility] [place] [facility] Jul 31, 2021 09:41 AM VA-TOBACCO QUIT 15 YRS OR MORE [facility] [place] [facility] Jun 29, 2020 11:00 AM VA-TOBACCO FORMER USER [facility] [place] [facility] Jun 29, 2020 11:00 AM VA-TOBACCO QUIT 15 YRS OR MORE [facility] [place] [facility] Feb 10, 2019 10:14 AM VA-TOBACCO FORMER USER [facility] [place] [facility] Feb 10, 2019 10:14 AM VA-TOBACCO QUIT 15 YRS OR MORE [facility] [place] [facility] Nov 27, 2017 11:12 AM QUIT TOBACCO USE > 7 YEARS AGO [facility] [place] [facility] Nov 05, 2016 11:01 AM QUIT TOBACCO USE > 7 YEARS AGO [facility] [place] [facility] Sep 17, 2015 01:03 PM QUIT TOBACCO USE > 7 YEARS AGO stopped 20 years ago [facility] [place] [facility] Feb 24, 2005 10:09 AM HISTORY OF SMOKING [facility] [place] [facility] May 28, 2004 08:08 AM QUIT TOBACCO USE > 7 YEARS AGO [facility] [place] [facility] Nov 27, 2003 01:12 PM HISTORY OF SMOKING [facility] [place] [facility] Mar 15, 2003 02:03 PM QUIT TOBACCO USE 1-7 YEARS AGO [facility] [place] [facility] Aug 24, 2002 11:07 AM HISTORY OF SMOKING [facility] [place] [facility] Feb 11, 2002 11:35 AM QUIT TOBACCO USE 1-7 YEARS AGO [facility] [place] [facility] May 21, 2001 01:11 PM HISTORY OF SMOKING quit 5 years ago [facility] [place] [facility] Encounter Notes: All associated encounter [...] fiber layer thickness OCT was run by organic extractions technician. A: Results are remaining reasonably stable from prior scans with OS showing small notch superior temporal in correspondence with inferior nasal step OS and OD remaining stable. History of low-tension glaucoma OS P: Follow-up as scheduled after imaging. /rajesh/ PURNIMA ESTRADA OD STAFF GREEN MEAT GRADER Signed: 08/17/2024 13:47 PURNIMA ESTRADA [facility]
--- OUTSIDE RECORDS SUMMARY | 2024-12-01 15:53 | XMS_ITS ---
Author Name [facility] [place] Address [address] [place] [address] Care Team Providers Care Bullet Lubricant Mixer Name Role Phone ANUPAM LEE Primary [...] [place] MCR (WNR) MEDICARE ADVANTAGE MCR ([facility]) Apr 17, 2013 [id number] Lauren COELHO PATIENT [facility] ([facility]) MEDICARE ADVANTAGE MCR ([facility]) Apr 17, 2013 [id number] [phone] Lauren COELHO PATIENT Selected Encounter This section includes the information on record at [place] for the Encounter. Date/Time Encounter Type Encounter Description Reason Provider Source Jun 21, 2024 02:00 PM OFFICE O/P EST LOW 20 MIN PRIMARY CARE/MEDICINE ICD-10-CM I11.9 Hypertensive heart disease without heart failure ROCKY LEE IHE Encounter Template Text not used by [place] Assessments - Encounter Diagnoses This section includes the primary and secondary diagnoses documented for the Encounter. Date/Time Primary/Secondary Diagnosis Diagnosis Name Provider Source Jun 21, 2024 02:09 PM PRIMARY Hypertensive heart disease without heart failure ROCKY LEE [place] [facility] [place] [facility] Jun 21, 2024 02:09 PM SECONDARY Carcinoma in situ of prostate [facility] [place] [facility] Jun 21, 2024 02:09 PM SECONDARY Encounter for immunization LIUDMILA NIETO [facility] Plan of Treatment: Future Appointments (+ 6 months) and Future Tests (+/- 45 days) The Plan of Treatment section includes future care activities for the patient from all [place] [facility] This section includes future appointments and [...] - MEDICINE [place] [facility] [place] [facility] Aug 12, 2024 09:00 AM AMBULATORY MEDICINE [place] [facility] [place] [facility] Aug 12, 2024 09:15 AM AMBULATORY MEDICINE [place] [facility] [facility] Aug 12, 2024 09:30 AM AMBULATORY - MEDICINE [place] [facility] [facility] Aug 12, 2024 10:00 AM AMBULATORY - MEDICINE [place] [facility] [facility] Oct 20, 2024 11:30 AM AMBULATORY - MEDICINE [facility] Lab Results: +/- 30 days of [...] Type Comment Jun 14, 2024 10:20 AM [facility] LIPID PANEL FASTING SERUM Specimen Type: SERUM No comment entered. Ordering Provider: RADHA LEE Report Released Date/Time: Jun 08, 2024 11:04 AM Reporting Lab: [facility] [address] [facility] [address] Performing Lab: [address] [address] CHOLESTEROL 166 mg/dL TRIGLYCERIDE 71 mg/dL 0-150 LDL calculated 95 mg/dL 0-129 CHOL/HDL 2.9 HDL CHOLESTEROL 57 mg/dL 40-60 Jun 14, 2024 10:20 AM [facility] LIVER FUNCTION SERUM Specimen Type: SERUM No comment entered. Ordering Provider: ANUPAM LEE Report Released Date/Time: Jun 08, 2024 11:04 AM Reporting Lab: [address] [address] Performing Lab: [address] [address] PROTEIN,TOTAL 6.8 g/dL 6.0-8.3 ALBUMIN 4.0 g/dL 3.5-5.0 ALKALINE PHOSPHATASE 63 U/L 40-150 AST 18 U/L 5-34 ALT 30 U/L BILIRUBIN, TOTAL 0.8 mg/dL 0.2-1.2 Jun 14, 2024 10:20 AM [facility] BASIC METABOLIC PANEL (fasting) SERUM Specime n Type: SERUM No comment entered. Ordering Provider: ANUPAM LEE Report Released Date/Time: Jun 08, 2024 11:04 AM Reporting Lab: [address] [address] Performing Lab: [address] [address] UREA NITROGEN 21 mg/dL 7-25 GLUCOSE 105 [...] 148/88 20 96 4 67 196 31 [facility] Jun 21, 2024 12:58 PM 140/70 5 [facility] Immunizations: All administered on the encounter date This section contains immunizations associated to the Encounter. Immunization Series Date Issued Administered By Site Reaction Lot Number CVX Code Drug Glass Decorator Comment(s) Source COVID-19 (MODERNA), MRNA, LNP-S, PF, 50 MCG/0.5 ML (AGES 12+ YEARS) Jun 21, 2024 LIUDMILA NIETO LEFT DELTO ID [id number] [email or web address]. ADMINISTERE D AT [facility] INFLUENZA, HIGH-DOSE, TRIVALENT, PF Jun 21, 2024 SUMANTHLIUDMILA Cipriano LEFT DELTO ID [id number] SANOFI PASTEUR ADMINISTERE D AT [facility] Social History: Smoking Status (Most current) [...] took place. Date/Time Current Smoking Status Comment [facility] Nov 17, 2023 11:30 AM [place]-TOBACCO FORMER USER [facility] Tobacco Use History This section includes a history of the smoking, or tobacco-related health factors, that were collected on or before the date of the Encounter. The data comes from the [place] facility where the Encounter took place. Date/Time Smoking Status/Tobac co Use Comment [facility] Nov 17, 2023 11:30 AM [place]-TOBACCO QUIT 15 YRS OR MORE [facility] Oct 30, 2022 03:20 PM [place]-TOBACCO FORMER USER [facility] [place] [facility] Oct 30, 2022 03:20 PM [place]-TOBACCO QUIT 15 YRS OR MORE [facility] [place] [facility] Jul 31, 2021 09:41 AM [place]-TOBACCO FORMER USER [facility] [place] [facility] Jul 31, 2021 09:41 AM [place]-TOBACCO QUIT 15 YRS OR MORE [facility] [place] [facility] Jun 29, 2020 11:00 AM [place]-TOBACCO FORMER USER [facility] [place] [facility] Jun 29, 2020 11:00 AM VA-TOBACCO QUIT 15 YRS OR MORE [facility] [place] [facility] Feb 10, 2019 10:14 AM [place]-TOBACCO FORMER USER [facility] [place] [facility] Feb 10, 2019 10:14 AM VA-TOBACCO QUIT 15 YRS OR MORE [facility] [place] [facility] Nov 27, 2017 11:12 AM QUIT TOBACCO USE > 7 YEARS AGO [facility] [place] [facility] Nov 05, 2016 11:01 AM QUIT TOBACCO USE > 7 YEARS AGO [facility] [place] [facility] Sep 17, 2015 01:03 PM QUIT TOBACCO USE > 7 YEARS AGO stopped 20 years ago [facility] [place] [facility] Feb 24, 2005 10:09 AM HISTORY OF SMOKING [facility] [place] [facility] May 28, 2004 08:08 AM QUIT TOBACCO USE > 7 YEARS AGO [facility] [place] [facility] Nov 27, 2003 01:12 PM HISTORY OF SMOKING [facility] [place] [facility] Mar 15, 2003 02:03 PM QUIT TOBACCO USE 1-7 YEARS AGO [facility] [place] [facility] Aug 24, 2002 11:07 AM HISTORY OF SMOKING [facility] [place] [facility] Feb 11, 2002 11:35 AM QUIT TOBACCO USE 1-7 YEARS AGO [facility] [place] [facility] May 21, 2001 01:11 PM HISTORY OF SMOKING quit 5 years ago [facility] [place] [facility] Encounter Notes: All associated encounter notes [...] PF Date Administered: Jun 21, 2024 14:00 Glass Decorator: SANOFI PASTEUR Lot: [id number] Exp Date: Feb 13, 2025 NDC: 286318184813 Admin Route/Site: INTRAMUSCULAR/LEFT DELTOID Dosage: 0.5mL Vaccine Information Statement(s): INFLUENZA(FLU) VACC(INACTIVATED OR RECOMBINANT)VIS Mar 22, 2021 (AMERICAN) Order By: Policy Administered By: Liudmila Nieto [...] YEARS) Date Administered: Jun 21, 2024 14:00 Glass Decorator: [employer]! 360A VIOSO. Lot: [id number] Exp Date: January 14, 2025 NDC: [id number] Admin Route/Site: INTRAMUSCULAR/LEFT DELTOID Dosage: 0.5mL Vaccine Information Statement(s): COVID-19 MRNA VACCINE (12+ YRS) VACCINE VIS Jun 02, 2024 ([place]ERICAN) Order By: Policy Administered By: Liudmila Nieto Vaccine administered without complications. /rajesh/ LIUDMILA NIETO, MSN, RN, CNL PRIMARY CARE TEAM NURSE Signed: 06/21/2024 14:17 LIUDMILA NIETO [facility] [place] [facility] Jun 21, 2024 02:06 PM PHYSICIAN DRUG ENFORCEMENT AGENT NOTE: LOCAL TITLE: PA NOTE STANDARD TITLE: PHYSICIAN DRUG ENFORCEMENT AGENT NOTE DATE OF NOTE: JUN 21, 2024@14:06 [...] Thoracic aortic aneurysm without rupture Followed by [facility]. 2. Exposure to potentially hazardous substance Connect Snomed Code to ICD 10 Code refer to note dated 07/20/23 3. History of implantation of penile prosthesis 4. Cancer of prostate 5. Sciatica 6. Benign essential hypertension (SNOMED CT [id number]) 7. Hypogonadism 8. Screening for Malignant Neoplasms [...] Urinary obstruction TURP 10/2101 Dr Stephens at [facility]. 17. GERD * 18. Insomnia * [...] 6 Total Medications 98.1 F [36.7 C] (06/21/2024 13:43) 69 (06/21/2024 13:43) 20 (06/21/2024 13:43) 148/88 (06/21/2024 13:43) 4 (06/21/2024 13:43) 67 in [170.2 cm] (06/21/2024 13:43) 196 lb [88.90 kg] (06/21/2024 13:43) BMI: 30.8 Neuro: Alert and oriented times three, grossly nonfocal, nasolabial folds intact. Thyroid nonpalpable. Cor: Regular rate and rhythm, normal s1 and 2 without Murmur, carotid bruits or pedal edema. Lungs; Clear to auscultation bilaterally. Recent labs reviewed with patient today: /rajesh/ Anupam Lee PA-C STAFF PHYSICIAN DRUG ENFORCEMENT AGENT Signed: 06/21/2024 14:09 ANUPAM LEE [place] [facility] [place] [facility] Jun 21, 2024 01:48 PM PREVENTIVE MEDICINE NURSING NOTE: LOCAL TITLE: CLINICAL REMINDERS/NURSING STANDARD TITLE: PREVENTIVE MEDICINE NURSING NOTE DATE OF NOTE: JUN 21, 2024@13:48 ENTRY DATE: JUN 21, 2024@13:48:23 AUTHOR: THANG WAYNE EXP COSIGNER: URGENCY: STATUS: COMPLETED Falls & Incontinence Screen: Falls Screen: 4. No falls within the past year. Incontinence Screen No incontinence. /rajesh/ hTang Wayne, Health Plant Tour Guide RECORDING STUDIO INTERNSHIP,PRIMARY CARE Signed: 06/21/2024 13:49 THANG WAYNE [facility]
== END 2024-12-01 14:36 | disposition home or self-care (01) ==
PROVIDERS: PCP Internal Medicine; Visit Provider Physician Assistant
DX: S91.339A Puncture wound without foreign body, unspecified foot, initial encounter (principal); S91.331A Puncture wound without foreign body, right foot, initial encounter

== ENCOUNTER → 2024-12-01 12:59 | Outpatient (BNVA) | payer OTHER, SELFPAY | PROVIDERS: PCP Internal Medicine; Visit Provider Physician Assistant | DX: S91.331A Puncture wound without foreign body, right foot, initial encounter (principal); Z23 Encounter for immunization; W45.0XXA Nail entering through skin, initial encounter; Y93.9 Activity, unspecified; Y92.9 Unspecified place or not applicable; Y99.9 Unspecified external cause status | CPT/HCPCS: 90471; 90715 ==

== ENCOUNTER 2025-02-15 09:19 | Outpatient (AMB) | payer OTHER, SELFPAY ==
--- OUTSIDE RECORDS SUMMARY | 2025-02-15 09:29 | XMS_ITS | Clinical Summary ---
Author Organization [facility] Address [address] [place] [address] Care Team Providers Care Pulp Making Plant Operator Name Role Phone Ricardo Ulloa MD Primary Care Provider [phone] Social History Tobacco Use Types Packs/Day Years [...] Patients (1 - 1-dose 75+ series) 11/25/2022 COVID-19 Vaccine ( - 2023-2 5 season) 2024 Influenza Vaccine 03/17/2025 Hepatitis B Vaccines Aged Out No long er eligible based on patient's age to complete this topic Insurance [place] [employer] FEE BASIS 16 F,ATTN:SAMANTA VALADEZ [id number] Care Teams Pulp Making Plant Operator Relationship Specialty Start Date End Date Ricardo Ulloa MD [address] [place] [address] PCP - General 02/21/20
--- OUTSIDE RECORDS SUMMARY | 2025-02-15 09:29 | XMS_ITS | Patient Health Record ---
Author Organization [facility] Address [address] [place] [address] Care Team Providers Care Control Integration Engineer Name Role Phone Cesilia Anguiano Primary Care Provider Unav ailRenato Moss Unavailable [phone] Allergies Allergen (clinical drug ingredient) Drug/Non Drug [...] Problem Status W/U Status Risk Notes Problem [id number] Encounter for screening for malignant neoplasm of colon (Z12.11) Active confirmed Problem 025719980 History of adenomatous polyp of colon (Z86.010) Active confirmed Problem 73727563 Irritable bowel syndrome without diarrhea (K58.9) Active confirmed Problem 703897473 Diverticulosis (K57.90) Active confirmed Problem 732626888377795 Preprocedural examination (Z01.818) Active confirmed Problem History of colon polyps (Z86.010) Active confirmed Problem 602796337 Family history o f colon cancer (Z80.0) Active confirmed Problem 36684318 Change in bowel function (R19.4) Active confirmed Problem 14863736 Diarrhea, unspecified type (R19.7) Active confirmed Problem Diverticulosis of colon (391144720) Diverticulosis of colon (K57.30) Active confirmed Problem 286004864 LLQ abdominal pain (R10.32) Active confirmed Plan [...] Insured Coverage Start Date Coverage End Date [facility] [address] [place] [address] [id number] HANH COELHO Self - patient is the insured Medical (General) History Medical History History ICD Code HTN Denies [place],DM,CVA,renal disease Diverticulitis with surgery as below Hyperlipidemia BPH Neg colonoscopy with Dr. Nain taylor in 05/2012--previous polyps removed at the [facility] EGD's in [place] prior to the kenia ibeth CT in 05/2013 and 11/2015 fercho wed only diverticulosis and renal cysts--he has also had negative abdominal ultrasound and MRIs ? of P[place] ver[place]---sees Dr. Gallagher-had phleb otomy--presently inactive Prostate cancer--finished XRT in 09/2015 Pleural effusion on the left -2014--saw Dr. Worthy at [facility]--had CT scans and a thoracentesis--no cancer--being followed Negative colonoscopy in March of 2016 Kidney stones EGD in 2017 was normal except for minima l gastritis-bx neg for Hpylori Surgical History Surgery Date(Month/Year) Hiatal hernia repair by Dr. Cartagena 2008 Appendectomy Sigmoid diverticulitis with lap. resecti on by Dr. Cartagena 2006 Laser prostate surgery for BPH with Dr. Rashaad FLEMING 07/27/2013
[2025-02-15 09:51] VITALS: BP 136/68; PULSE 64; TEMP 36.6; O2SAT 94; BMI 29.4
--- NOTE | 2025-02-15 09:51 | MHC.OFFWIV ---
Intake Vital Signs 02/15/25 09:51 Height 5 ft 9 in Weight 199 lb BMI 29.4 BP 136/68 Blood Pressure Location Rt brachial Position Sitting Pulse 64 Pulse Source Pulse Oximeter Temp 97.8 F Temp Source Oral Pulse Oximetry (%) 94 Oxygen Delivery Method Room Air Intake Visit Reasons: EP multiple bee stings on RT eye, swelling Intake Note: presents with right eye swelling after bee stings a couple days, itchiness, vision is in tact. denies difficulty breathing or pain Patient Tobacco Use Status: Former Tobacco user Allergies sulfamethoxazole (From Bactrim) Allergy (Verified 02/15/25 09:53) Mouth sores, Stomach pains trimethoprim (From Bactrim) Allergy (Verified 02/15/25 09:53) Mouth sores, Stomach pains Sulfa (Sulfonamide Antibiotics) Adverse Reaction (Intermediate, Verified 02/15/25 09:53) MOUTH SORES, RASH Do you need a note to return to daycare/school/sports/work: No HPI HPI Comments History of Present Illness Details History of Present Illness - The patient is a 79-year-old male presenting with a bee sting with swelling and itching around the eye. - The bee sting occurred on Thursday afternoon, approximately a day and a half ago. - He was stun by 3 bees around the right eye and then on the right forearm. - Initially, the area was itchy, and by the following night, puffiness developed, which increased by the next day. - The patient reports no vision impairment, pain, or history of anaphylactic reactions to bee stings. - There is concern about the redness and swelling around his right eye. - He has been using ice to the area. - He denies fever, chills, CP, SOB, abd pain, n/v/d, tongue swelling, sore throat, or chest tightness. Physical Exam General: Cooperative, healthy appearing, comfortable, no acute distress and well developed Limitations: No limitations Head: Normal to inspection Ears: Hearing grossly normal bilaterally Face and sinus: Normal facial exam, swelling noted on the right side of the face. Eyes: Appearance puffy and swollen around the eyelids, upper and lower on the right. Neck: Normal visual inspection and Yes full ROM Respiratory: Normal respiratory effort and able to speak in complete sentences. Clear to auscultation bilaterally Cardiovascular: Regular rate and rhythm. Normal S1 and S2 Skin: No rashes or lesions noted. Erythema noted periorbitally on the right. Patient was informed and verbally consented to the use of an ambient scribe for clinic note documentation during this visit. [facility] Medical History HTN (hypertension) BPH (benign prostatic hyperplasia) Encounter to establish care Erectile dysfunction due to arterial insufficiency Fracture, thoracic vertebra, compression Lumbar degenerative disc disease Essential hypertension Ascending aortic aneurysm Annual physical exam Normal colonoscopy Prostate CA Allergic rhinitis Polycythemia Hyperlipidemia Hearing problem Insomnia Hypogonadism male Osteoporosis Surgical History Hx of transurethral resection of prostate Hx of cystoscopy History of esophagogastroduodenoscopy (EGD) Hx of appendectomy History of repair of hiatal hernia Hx of hernia repair History of colon resection Hx of nasal septoplasty Hx of colonoscopy Family History Father Alzheimer disease Colon cancer Colon polyps Mother No problems noted. Other Mental health disorder Social History Housing: House Alcohol intake: current Alcohol intake frequency: holidays/special occasions only Patient Tobacco Use Status: Former Tobacco user e-Cigarette/Vaping Use: Never Used Second Hand Smoke Exposure: No service: Yes Current occupational status: employed and retired Current occupational exposures/hazards: No Cognitive needs: No Hearing needs: Yes Vision needs: No Review of Systems Const All systems reviewed & are unremarkable except as noted in HPI and below Physical Exam Vital Signs: Last Vital Signs Temp 97.8 F 02/15/25 09:51 Pulse 64 02/15/25 09:51 BP 136/68 02/15/25 09:51 Pulse Ox 94 02/15/25 09:51 Oxygen Delivery Method Room Air 02/15/25 09:51 BMI result Body Mass Index 29.4 Assessment & Plan Assessment & Plan (1) Bee sting reaction: Code(s): T63.441A - Toxic effect of venom of bees, accidental (unintentional), initial encounter Qualifiers: Encounter type: initial encounter Injury intent: accidental or unintentional Qualified Code(s): T63.441A - Toxic effect of venom of bees, accidental (unintentional), initial encounter (2) Periorbital cellulitis of right eye: Code(s): L03.213 - Periorbital cellulitis Plan Most likely allergic reaction vs cellulitis due to bee stings Plan - Ice to the area. - Prednisone burst for 5 days - Keflex 500 mg QID for 7 days - Tylenol or Motrin as needed for pain or fever. - Consider administration of antihistamines to alleviate itching and swelling. - Follow up with PCP Medications: New prednisone 40 mg (2 x 20 mg) PO DAILY 10 tabs 0RF 5 days cetirizine 5 mg PO DAILY PRN 14 tabs 0RF allergy symptoms 14 days cephalexin 500 mg PO Q6H 28 caps 0RF Coding Level of Care Code Est Pt Level 4 (99055) Diagnoses Bee sting reaction, accidental or unintentional, initial encounter T63.441A Encounter type: initial encounter Injury intent: accidental or unintentional Periorbital cellulitis of right eye L03.213
== END 2025-02-15 10:37 | disposition home or self-care (01) ==
PROVIDERS: PCP Internal Medicine; Visit Provider Physician Assistant Medical
DX: T63.441A Toxic effect of venom of bees, accidental (unintentional), initial encounter (principal); L03.213 Periorbital cellulitis

== ENCOUNTER → 2025-03-22 14:48 | Outpatient (REF) | payer OTHER, SELFPAY ==
--- NOTE | 2025-03-22 14:50 | CA_ITS ---
Transthoracic Echocardiogram Patient (Last, First, Middle): Ermias Birmingham J Gender: Male Date of : 1945 Age: 79 Procedure Date: 03/22/2025 Procedure Type: Transthoracic Echocardiogram Location: OP Height: 175.26 cm Weight: 89.36 kg BSA: 2.05 m2 Heart Rate: bpm BP: 136 / 68 mmHg Senior Instructional Designer: CP/IVAN Referring MD: Leticia Galaviz CHARTER PILOTLizaC Symptoms: I71.21 - Aneurysm of the ascending aorta, without rupture Study Quality: Adequate ECG Rhythm: Sinus Conclusions: - The left ventricular systolic function is hyperdynamic. The visually estimated ejection fraction is >70%. - No obvious valvular pathology seen on this study. - There is mild dilatation of the sinuses of Valsalva measuring 4.20 cm and mild dilatation of the ascending aorta measuring 4.10 cm. Findings Left Ventricle Normal left ventricular cavity size. There is mildly increased left ventricular wall thickness. The left ventricular systolic function is hyperdynamic. The visually estimated ejection fraction is >70%. There is no evidence of regional wall motion abnormalities. Diastolic function is normal for age. Right Ventricle Normal right ventricular cavity size and systolic function. Atria Both atria are normal in size. Aortic Valve There is a normal trileaflet aortic valve. There is mild calcification of the aortic valve. There is no aortic valve stenosis. There is no aortic valve regurgitation. Mitral Valve The mitral valve appears normal. There is no mitral valve regurgitation. There is no mitral valve stenosis. Pulmonic Valve The pulmonic valve is likely normal. Tricuspid Valve There is mild tricuspid valve regurgitation. There is no evidence of pulmonary hypertension. Great Vessels The aortic arch is normal in size. There is mild dilatation of the sinuses of Valsalva measuring 4.20 cm and mild dilatation of the ascending aorta measuring 4.10 cm. Venous The inferior vena cava is normal in size and collapses greater than 50% with inspiration. Pericardium/Pleural There is no evidence of pericardial effusion. Prior Study Comparison No significant change compared to prior study dated: 02/05/2024. Recommendations, Care & Conclusions No obvious valvular pathology seen on this study. Measurements 2D Linear Measurements IVSd: 1.24 0.6-0.9/0.6-1.0 cm LVIDd: 5.02 3.9-5.3/4.2-5.9 cm LVIDd Index: 2.45 2.4-3.2/2.2-3.1 cm/m2 LVIDs: 3.45 2.0-3.6 cm LVPWd: 1.16 0.7-1.1 cm LA Diam: 4.20 2.7-3.8/3.0-4.0 cm LAIDs Index: 2.05 1.5-2.3 cm/m2 LV Mass: 293.29 67-162/88-224 g LV Mass Index: 143.07 43-95/49-115 g/m2 LVOT Diam: 2.30 3.0+(-)1.3 cm 2D Systolic Function EF 4C: 64.30 >55% EF 2C: 60.70 >55% EF BiP: 59.50 >55% Mitral Valve MV Pk E: 0.75 MV PK A: 0.91 MV Decel Time: 271.00 E/A: 0.80 E'Lateral: 8.05 E'Medial: 6.96 E/E' Med: 10.70 E/E' Lat: 9.30 PHT: 79.00 MVA PHT: 2.78 Decel [place]: 2.75 Aortic Valve AoV Pk Td: 1.48 AoV Mn Td: 0.98 AoV VTI: 0.33 AoV Pk Grad: 9.00 Aov Mn Grad: 5.00 ORALIA Cont.VTI: 3.41 LVOT LVOT Pk Td: 1.38 LVOT Mn Td: 0.84 LVOT VTI: 0.27 LVOT Pk Grad: 8.00 LVOT Mn Grad: 3.00 LVOT Diam: 2.30 LVOT Area: 4.15 Diastolic Function MV Pk E: 0.75 MV Pk A: 0.91 E/A: 0.80 E'Medial: 6.96 E/E' Med: 10.70 E' Laterial: 8.05 E/E' Lat: 9.30 Right Ventricle TAPSE (mm): 22.60 TVS' Td: 15.70 Tricuspid Valve TR Pk Td: 2.31 TR Pk Grad: 21.00 RA Press: 3.00 RVSP: 24.00 Great Vessels Aorta Sinus of Valsalva: 4.20 2.0-3.5 cm Ao Asc: 4.10 2.1-3.4 cm Ao Arch: 3.20 Updated in Other Vendor System with Status of Final Giancarlo Leigh MD electronically signed on 03/24/2025 3:01:34 PM with status of Final
--- OUTSIDE RECORDS SUMMARY | 2025-03-22 15:17 | XMS_ITS | Patient Health Record ---
Author Organization [facility] Address [address] [place] [address] Care Team Providers Care General Hardware Salesperson Name Role Phone Cesilia Anguiano Primary Care Provider Unav ailRenato Moss Unavailable [phone] Allergies Allergen (clinical drug ingredient) Drug/Non Drug [...] Problem Status W/U Status Risk Notes Problem 187050640 Encounter for screening for malignant neoplasm of colon (Z12.11) Active confirmed Problem 246510963 History of adenomatous polyp of colon (Z86.010) Active confirmed Problem 28415784 Irritable bowel syndrome without diarrhea (K58.9) Active confirmed Problem 463413366 Diverticulosis (K57.90) Active confirmed Problem 968938971280857 Preprocedural examination (Z01.818) Active confirmed Problem History of polyp of colon (situation) (413809206) History of colon polyps (Z86.010) Active confirmed Problem 002417079 Family history o f colon cancer (Z80.0) Active confirmed Problem 80886971 Change in bowel function (R19.4) Active confirmed Problem 35234202 Diarrhea, unspecified type (R19.7) Active confirmed Problem Diverticulosis of colon (592785120) Diverticulosis of colon (K57.30) Active confirmed Problem 301733607 LLQ abdominal pain (R10.32) Active confirmed Plan [...] Insured Coverage Start Date Coverage End Date [facility] [address] [place] [address] [id number] HANH COELHO Self - patient is the insured Medical (General) History Medical History History ICD Code HTN Denies [place],DM,CVA,renal disease Diverticulitis with surgery as below Hyperlipidemia BPH Neg colonoscopy with Dr. Nain taylor in 05/2012--previous polyps removed at the [facility] EGD's in [place] prior to the kenia ibeth CT in 05/2013 and 11/2015 fercho wed only diverticulosis and renal cysts--he has also had negative abdominal ultrasound and MRIs ? of P. vera---sees Dr. Gallagher-had phleb otomy--presently inactive Prostate cancer--finished XRT in 09/2015 Pleural effusion on the left -2014--saw Dr. Worthy at [facility]--had CT scans and a thoracentesis--no cancer--being followed [...]
--- OUTSIDE RECORDS SUMMARY | 2025-03-22 15:17 | XMS_ITS | Clinical Summary ---
Author Organization [facility] Address [address] [place] [address] Care Team Providers Care Heat Treater Apprentice Name Role Phone Ricardo Ulloa MD Primary Care Provider [phone] Social History Tobacco Use Types Packs/Day Years [...] [place] [employer] F,ATTN:SAMANTA VALADEZ [id number] Care Teams Heat Treater Apprentice Relationship Specialty Start Date End Date Ricardo Ulloa MD [address] [place] [address] PCP - General 02/21/20
--- OUTSIDE RECORDS SUMMARY | 2025-03-22 15:17 | XMS_ITS | Clinical Summary ---
Author Organization [facility] Address [address] [facility] [address] [place] [address] Phone Care Team Providers Care Tearoom Hostess Name Role Phone Cathleen Mataara LLUVIA Primary Care Provider [phone] Allergies Active Allergy Reactions Criticality Noted Date Comments Amoxicillin-Pot Clavulanate Pain Low 03/24/20 11 Sulfa (Sulfonamide Antibiotics) 04/17 Medications vitamin E 200 UNIT capsule TAKE FIVE CAPSULES BY MOUTH ONCE DAILY 1 Active acyclovir (ZOVIRAX) 800 MG tablet 800 mg daily as needed. 2 Active alendronate (FOSAMAX) 70 MG tablet Take 70 mg by mouth once a week. 2 Active lisinopril (PRINIVIL,ZESTR IL) 2.5 MG tablet Take 7.5 mg by mouth daily. 2 Active simvastatin (ZOCOR) 40 MG tablet 20 mg. 2 Active tadalafiL (CIALIS, ADCIRCA) 20 MG tablet 20 mg. 2 Active testosterone (ANDRODERM) 4 mg/24 hr PT24 APPLY 1 PATCH TO SKIN AT BEDTIME DIRECTED BY PRESCRIBER 2 Active zolpidem (AMBIEN) 10 mg tablet Take 1 tablet by mouth nightly at bedtime as needed. 2 Active cholecalciferol (VITAMIN D3) 5,000 unit tablet Take 1,000 Units by mouth daily. Active labetaloL (TRANDATE) 100 MG tablet Take 100 mg by mouth 2 (two) times a day. Active multivit-min/fo lic/vit K/lycop (ONE-A-DAY MEN'S 50 PLUS ORAL) Take by mouth. Activ e amLODIPine (NORVASC) 5 MG tablet Take 5 mg by mouth daily. 3 Active atorvastatin (LIPITOR) 40 MG tablet Take 20 mg by mouth daily. 3 Active latanoprost (XALATAN) 0.005 % ophthalmic solution INSTILL 1 DROP INTO THE LEFT EYE AT BEDTIME TO REDUCE PRESSURE IN THE EYE 2 Active Active Problems Problem Noted Date Diagnosed Date Disorder of sacrum 06/26/2022 Social History Tobacco Use Types Packs/Day Years Used Date Smoking Tobacco: Former Cigarettes 1 20 0 04/17/1965 - 04/17/1985 Smokeless Tobacco: Never Alcohol Use Standard Drinks/Week Comments Not Currently 0 (1 standard drink = 0.6 oz pur e alcohol) Education Answer Date Recorded Are you interested in more education? Not on mansoor e 12/13/2022 Are you concerned about learning? Not on file 12/13/2022 No 12/13/2022 No 12/13/2022 Digital Access Answer Date Recorded No 01/09/2023 No 01/09/2023 No 01/09/2023 Reliable internet access at home? Not on file 01/09/2023 Device with a working camera? Not on file Sex and Gender Information Value Date Recorded Sex Assigned at Not on file Legal Sex Male 3:29 PM EDT Gender Identity Not on file Sexual Orientation Not on file Last Filed Vital Signs Vital Sign Reading Time Taken Comments Blood Pressure - - Pulse - - Temperature - - Respiratory Rate - - Oxygen Saturation - - Inhaled Oxygen Concentration - - Weight 89.8 kg (198 lb) 01/02/2023 10:41 AM EDT Height 175.8 cm (5' 9.2 ) 01/02/2023 10:41 AM ED T Body Mass Index 29.07 01/02/2023 10:41 AM EDT Plan of Treatment Health Maintenance Due Date Last Done Comments CREATININE LEVEL 1945 LIPID PANEL 1945 POTASSIUM LEVEL 1945 DEPRESSION SCREENING 1959 SMOKING Hx and SMOKELESS TOBACCO SCREENING 11/25/1960 HEPATITIS C SCREENING 11/25/1965 RSV VACCINE (1 - 1-dose 75+ series) 11/25/2022 COVID-19 VACCINE (2023-2 5 season) 2024 07/14/2021, 11/18/2020, 10/18/2020 Adult Td,Tdap Booster 03/23/2025 03/23/2015 PNEUMOCOCCAL VACCINES (50+ years) Completed 11/05/2016, 07/17/2014 ZOSTER VACCINES Completed 02/14/2019, 10/25/2018, 11/05/2016 HEPATITIS A VACCINES Aged Out No long er eligible based on patient's age to complete this topic HIB VACCINES Aged Out No longer eligi ble based on patient's age to complete this topic MENINGOCOCCAL VACCINES (ACWY) Aged Out No longer eligible based on patient's age to complete this topic MENINGOCOCCAL VACCINES (B) Aged Out N o longer eligible based on patient's age to complete this topic Medical Devices Not on file Insurance [employer] HMO REPLACEMENT [employer] H[employer] REPLACEMENT [employer] H[employer] REPLACEMENT [employer] H[employer] REPLACEMENT [employer] HMO REPLACEMENT ED [facility] MEDICARE HMO REPLACEMENT ED [facility] MEDICARE HMO REPLACEMENT ED [facility] MEDICARE HMO REPLACEMENT [facility] MEDICARE HMO REPLACEMENT Care Teams Tearoom Hostess Relationship Specialty Start Date End Date Christi Mata NP [address] [facility] [address] [place] [address] PCP - General 10/22/22 Additional Source Comments The information contained in this document represents components of the legal health record. It is not the complete legal health record.[facility]
== END ==
LOC: HO.CARD 14:48
PROVIDERS: PCP Internal Medicine; Visit Provider Internal Medicine
DX: I71.21 Aneurysm of the ascending aorta, without rupture (principal)
CPT/HCPCS: 93306

== ENCOUNTER → 2025-03-22 14:50 | Outpatient (BNV) | payer OTHER, SELFPAY | PROVIDERS: PCP Internal Medicine; Visit Provider Internal Medicine | DX: I51.89 Other ill-defined heart diseases (principal); I71.21 Aneurysm of the ascending aorta, without rupture; I35.8 Other nonrheumatic aortic valve disorders; I36.1 Nonrheumatic tricuspid (valve) insufficiency | CPT/HCPCS: 93306 ==

== ENCOUNTER 2025-03-23 08:55 | Outpatient (REF) | payer OTHER, SELFPAY ==
--- OUTSIDE RECORDS SUMMARY | 2025-03-23 09:16 | XMS_ITS | Clinical Summary ---
Author Organization [facility] Address [address] [place] [address] Care Team Providers Care Commissary Production Supervisor Name Role Phone Ricardo Ulloa MD Primary Care Provider [phone] Social History Tobacco Use Types Packs/Day Years [...] [employer] F,ATTN:SAMANTA VALADEZ [phone] Care Teams Commissary Production Supervisor Relationship Specialty Start Date End Date Ricardo Ulloa MD [address] [place] [address] PCP - General 02/21/20
--- OUTSIDE RECORDS SUMMARY | 2025-03-23 09:16 | XMS_ITS | Patient Health Record ---
Author Organization [facility] Address [address] [place] [address] Care Team Providers Care Budget Technician Name Role Phone Cesilia Anguiano Primary Care Provider Unav ailRenato Moss Unavailable [phone] Allergies Allergen (clinical drug ingredient) Drug/Non Drug [...] Problem Status W/U Status Risk Notes Problem 172291864 Encounter for screening for malignant neoplasm of colon (Z12.11) Active confirmed Problem 565824747 History of adenomatous polyp of colon (Z86.010) Active confirmed Problem 37127758 Irritable bowel syndrome without diarrhea (K58.9) Active confirmed Problem 080491020 Diverticulosis (K57.90) Active confirmed Problem 667264318117458 Preprocedural examination (Z01.818) Active confirmed Problem History of polyp of colon (situation) (435959286) History of colon polyps (Z86.010) Active confirmed Problem 701404889 Family history o f colon cancer (Z80.0) Active confirmed Problem 55549603 Change in bowel function (R19.4) Active confirmed Problem 11493264 Diarrhea, unspecified type (R19.7) Active confirmed Problem Diverticulosis of colon (701293189) Diverticulosis of colon (K57.30) Active confirmed Problem 569510905 LLQ abdominal pain (R10.32) Active confirmed Plan [...] Date [facility] [address] [place] [address] [phone] [id number] HANH COELHO Self - patient is the insured Medical (General) History Medical History History ICD Code HTN Denies [place],DM,CVA,renal disease Diverticulitis with surgery as below Hyperlipidemia BPH Neg colonoscopy with Dr. Nain taylor in 05/2012--previous polyps removed at the [facility] EGD's in [place] prior to the kenia ibeth CT in 05/2013 and 11/2015 fercho wed only diverticulosis and renal cysts--he has also had negative abdominal ultrasound and MRIs ? of P. vera---sees Dr. Gallagher-had phleb otomy--presently inactive Prostate cancer--finished XRT in 09/2015 Pleural effusion on the left -2014--saw Dr. Worthy at [facility]--had CT scans and a thoracentesis--no cancer--being [...]
--- OUTSIDE RECORDS SUMMARY | 2025-03-23 09:16 | XMS_ITS | Clinical Summary ---
Author Organization [facility] Address [address] [facility] [address] [place] [address] Phone Care Team Providers Care Middle School Teacher Name Role Phone Cathleen Mataara LULVIA Primary Care Provider [phone] Allergies Active Allergy Reactions Criticality Noted Date [...] REPLACEMENT [employer] HMO REPLACEMENT [facility] MEDICARE HMO REPLACEMENT [facility] MEDICARE HMO REPLACEMENT [facility] MEDICARE HMO REPLACEMENT [facility] MEDICARE HMO REPLACEMENT Care Teams Middle School Teacher Relationship Specialty Start Date End Date Christi Mata NP [address] [facility] [address] [place] [address] PCP - General 10/22/22 Additional Source Comments The information contained in this document represents components of the legal health record. It is not the complete legal health record.[facility]
[2025-03-23 10:18] LABS: Hematocrit 43.3 % (42.0-52.0); Hemoglobin 14.2 g/dl (14.0-18.0); Mean Corpuscular HGB Conc 32.8 g/dl (31.0-36.0); Mean Corpuscular Hemoglobin 30.1 pg (27.0-33.0); Mean Corpuscular Volume 91.7 fL (80.0-98.0); NRBC Abs Auto 0.000 X10*3/uL (0.0-0.012); NRBC Pct Auto 0.0 /100WBC (0.0-0.2); Platelet Count 179 X10*3/uL (160-400); Red Blood Count 4.72 X10*6/uL (4.60-5.80); White Blood Count 4.3 X10*3/uL (4.8-10.8)
[2025-03-23 10:54] LABS: Prostate Specific Antigen 0.10 ng/mL (<0.05-4.0)
== END 2025-03-23 08:56 | disposition home or self-care (01) ==
LOC: HO.HMGCLDS 08:55
PROVIDERS: PCP Internal Medicine; Visit Provider Urology
DX: E29.1 Testicular hypofunction (principal); Z12.5 Encounter for screening for malignant neoplasm of prostate
CPT/HCPCS: 36415; 84153; 84403; 85027

== ENCOUNTER 2025-04-07 11:24 | Outpatient (AMB) | payer OTHER, SELFPAY ==
--- NOTE | 2025-04-07 11:25 | MHC.OFFVIS ---
Intake Visit Reasons: 6m/labs Intake Note: Pt presents to office today for a 6 month follow up/psa/testo urology meds: Testosterone Blood Thinner: none Labs done 03/23/25 : PSA 0.10 Total testosterone : [address] Worker Required: No Accompanied by: Self / Same As Patient Allergies sulfamethoxazole (From Bactrim) Allergy (Verified 04/07/25 11:26) Mouth sores, Stomach pains trimethoprim (From Bactrim) Allergy (Verified 04/07/25 11:26) Mouth sores, Stomach pains Sulfa (Sulfonamide Antibiotics) Adverse Reaction (Intermediate, Verified 04/07/25 11:26) MOUTH SORES, RASH HPI Comments Details: Ermias is a pleasant male. He is a patient of Dr. Navarro. He is seen for the following urologic conditions - prostate cancer - erectile dysfunction - hypogonadism - nephrolithiasis - hematuria Telemedicine Evaluation 15 min Consultation PlayLab Mery Video Six-month testosterone follow-up Lab work within normal limits - 04/10 550 0.1 Continue gel Hypogonadism with daily testosterone gel PSA controlled Nephrolithiasis Nephrolithiasis minimal on left side Does have persistent back pain Has been on Fosamax previously for osteoporosis with vitamin-D Prostate cancer - agent orange exposure external beam radiation 2014 Initial diagnosis 2014 Initial therapy radiation with hormones Previous mild hematuria responded to Proscar PSA - 09/06 0.14, 05/07 0.09, 03/07 0.1, 07/08 0.1, 03/08 485 <0.1 44, 09/09 925 0.12, 03/09 0.13, 10/11 <0.1 350, 04/10 550 Nocturia 2-3 times, daytime 3 hours - is slowly improving Hypogonadism Takes testosterone gel On Fosamax for osteoporosis with vitamin-D Laboratories - 11/04 testosterone 550, hematocrit 46.3, 05/07 T 357, 03/07 479, 09/09 925, 01/07 557 Erectile dysfunction Persistent since radiation for prostate cancer Prior trial of oral tablets and vacuum pumps Failed maximum combination therapy with daily tadalafil and top up Was able to used corporal injections however did not reliably produce desired effect Penile prosthetic placed 08/07 Nephrolithiasis Imaging - 09/08 renal ultrasound bilateral cysts up to 3 cm, small stones left multiple 3 mm Radiation cystitis intermittent hematuria [facility] Medical History HTN (hypertension) BPH (benign prostatic hyperplasia) Encounter to establish care Erectile dysfunction due to arterial insufficiency Fracture, thoracic vertebra, compression Lumbar degenerative disc disease Essential hypertension Ascending aortic aneurysm Annual physical exam Normal colonoscopy Prostate CA Allergic rhinitis Polycythemia Hyperlipidemia Hearing problem Insomnia Hypogonadism male Osteoporosis Surgical History Hx of transurethral resection of prostate Hx of cystoscopy History of esophagogastroduodenoscopy (EGD) Hx of appendectomy History of repair of hiatal hernia Hx of hernia repair History of colon resection Hx of nasal septoplasty Hx of colonoscopy Family History Father Alzheimer disease Colon cancer Colon polyps Mother No problems noted. Other Mental health disorder Social History Housing: House Alcohol intake: current Alcohol intake frequency: holidays/special occasions only Patient Tobacco Use Status: Former Tobacco user e-Cigarette/Vaping Use: Never Used Second Hand Smoke Exposure: No service: Yes Current occupational status: employed and retired Current occupational exposures/hazards: No Cognitive needs: No Hearing needs: Yes Vision needs: No Review of Systems Const All systems reviewed & are unremarkable except as noted in HPI and below Reports no additional complaints Resp Reports no additional complaints GI Reports no additional complaints Reports as per HPI Musc Reports no additional complaints Physical Exam Telemedicine evaluation Appropriate responses Regular breathing rate and rhythm HEENT Head: Yes normal to inspection Ears: hearing grossly normal bilaterally Eyes General: appearance normal, both eyes and all related structures Neck Neck: Yes normal visual inspection Chest Chest palpation & inspection: normal inspection of the chest Resp Effort & Inspection: normal respiratory effort and able to speak in complete sentences Telehealth Telehealth Telehealth Platform: [facility] Location of provider rendering services: practice address Location of patient: address on file Patient Identification confirmed using: Name, : Yes Telehealth method: video Patient verbally consented to treatment: Yes Patient verbally consented to billing insurance company: Yes Patient informed of any privacy concerns related to visit: Yes Minutes spent on Phone/Video with Pt.: 15 Assessment & Plan Assessment & Plan (1) Erectile dysfunction due to and not concurrent with radiation therapy: Comment: Has establish care with Urology. Patient utilizes testosterone gel. Code(s): N52.35 - Erectile dysfunction following radiation therapy Category: Medical (2) Prostate CA: Comment: 2015 s/p RTX, hormonal tx, f/u urology Dr. 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 While every effort has been made to ensure accuracy cardiovascular rn errors may have been included. Imaging studies, laboratory and physical exam results were discussed and reviewed in detail. No major barriers to patient understanding were identified. An opportunity to ask questions regarding the treatment plan was provided. All questions were answered. The patient expressed understanding and agreement with the above treatment plan. The patient is aware they should contact our office by phone for worsening of their current condition or the appearance of new urologic symptoms. Compliance is encouraged with any medications and followup testing that is ordered. It is a privilege to participate in the urologic care of your patient. If you have any questions or concerns regarding treatment for the above conditions, or other urologic issues, please do not hesitate to contact me. The office telephone contact is [phone]. Sincerely, Dr Jd Ayers MD, [facility] - Urology Compassionate Specialist Care for the Genitourinary System Coding Level of Care Code Tele Est Pt Level 3 (74683) Complex EM visit Add On G2211 Diagnoses Erectile dysfunction due to and not concurrent with radiation therapy N52.35 Prostate CA C61 Radiation cystitis N30.40
--- OUTSIDE RECORDS SUMMARY | 2025-04-07 11:28 | XMS_ITS | Patient Health Record ---
Author Organization [facility] Address [address] [place] [address] Care Team Providers Care Logging Tractor Operator Name Role Phone Cesilia Anguiano Primary Care Provider Unav ailRenato Moss Unavailable [phone] Allergies Allergen (clinical drug ingredient) Drug/Non Drug [...] Problem Status W/U Status Risk Notes Problem [id number] Encounter for screening for malignant neoplasm of colon (Z12.11) Active confirmed Problem 164605853 History of adenomatous polyp of colon (Z86.010) Active confirmed Problem 85360274 Irritable bowel syndrome without diarrhea (K58.9) Active confirmed Problem 169547678 Diverticulosis (K57.90) Active confirmed Problem [id number] Preprocedural examination (Z01.818) Active confirmed Problem History of colon polyps (Z86.010) Active confirmed Problem 122998626 Family history o f colon cancer (Z80.0) Active confirmed Problem 90556430 Change in bowel function (R19.4) Active confirmed Problem 22060830 Diarrhea, unspecified type (R19.7) Active confirmed Problem Diverticulosis of colon (669525010) Diverticulosis of colon (K57.30) Active confirmed Problem 185671279 LLQ abdominal pain (R10.32) Active confirmed Plan [...] Coverage End Date [facility] [address] [place] [phone] [id number] HANH COELHO Self - patient is the insured Medical (General) History Medical History History ICD Code HTN Denies OH,DM,CVA,renal disease Diverticulitis with surgery as below Hyperlipidemia BPH Neg colonoscopy with Dr. Nain taylor in 05/2012--previous polyps removed at the [facility] EGD's in [place] prior to the [facility] CT in 05/2013 and 11/2015 fercho wed only diverticulosis and renal cysts--he has also had negative abdominal ultrasound and MRIs ? [facility]---sees Dr. Gallagher-had phleb otomy--presently inactive Prostate cancer--finished XRT in 09/2015 Pleural effusion on the left -2014--saw Dr. Worthy at [facility]--had CT scans and a thoracentesis--no cancer--being followed [...]
--- OUTSIDE RECORDS SUMMARY | 2025-04-07 11:28 | XMS_ITS | Clinical Summary ---
Author Organization [facility] Address [address] [facility] [address] [place] [address] Phone Care Team Providers Care Cardiac Rehabilitation Specialist Name Role Phone Cathleen Mataara LLUVIA Primary Care Provider [phone] Allergies Active Allergy Reactions Criticality Noted Date [...] REPLACEMENT [facility] [place] MEDICARE HMO REPLACEMENT [facility] MEDICARE HMO REPLACEMENT [facility] MEDICARE HMO REPLACEMENT [facility] MEDICARE HMO REPLACEMENT [facility] MEDIC[facility] HMO REPLACEMENT Care Teams Cardiac Rehabilitation Specialist Relationship Specialty Start Date End Date Christi Mata NP [address] [facility] [address] [place] [address] PCP - General 10/22/22 Additional Source Comments The information contained in this document represents components of the legal health record. It is not the complete legal health record.[facility]
--- OUTSIDE RECORDS SUMMARY | 2025-04-07 11:28 | XMS_ITS | Clinical Summary ---
Author Organization [facility] Address [address] [place] [address] Care Team Providers Care Pharmacy Student Name Role Phone Ricardo Ulloa MD Primary Care Provider [phone] Social History Tobacco Use Types Packs/Day Years [...] [place] FEE BASIS 16 F,ATTN:SAMANTA VALADEZ [address] Care Teams Pharmacy Student Relationship Specialty Start Date End Date Ricardo Ulloa MD [address] [place] [address] PCP - General 02/21/20
== END 2025-04-07 13:15 | disposition home or self-care (01) ==
LOC: HO.HUSH 11:24
PROVIDERS: PCP Internal Medicine; Visit Provider Urology
DX: N52.35 Erectile dysfunction following radiation therapy (principal); C61 Malignant neoplasm of prostate; N30.40 Irradiation cystitis without hematuria
CPT/HCPCS: 99213; G2211

== ENCOUNTER 2025-04-19 13:46 | Outpatient (AMB) | payer OTHER, SELFPAY ==
--- OUTSIDE RECORDS SUMMARY | 2025-04-19 07:34 | XMS_ITS | Encounter Summary ---
Author Name [facility] [facility] [place] Address [address] [place] [address] Care Team Providers Care Head Of Marketing Analytics Name Role Phone APOORVA MORENO Primary Care [...] [facility] Apr 17, 2013 [id number] COELHO PATIENT [facility] ([facility]) MEDICARE ADVANTAGE MCR ([facility]) Apr 17, 2013 [id number] Lauren COELHO PATIENT Selected Encounter This section includes the information on record at [place] for the Encounter. Date/Time Encounter Type Encounter Description Reason Pro vider Source Apr 19, 2025 11:34 AM Outpatient Encounter PRIMARY CARE/MEDICINE IHE Encounter Template Text not used by [facility] Plan of Treatment: Future Appointments (+ 6 months) and Future Tests (+/- 45 days) The Plan of Treatment section includes future care activities for the patient from all [place] treatmentfacilities. This section includes future appointments and future orders which are active, pending or scheduled. Future Appointments This section includes appointments that were scheduled to occur 6 months from the date of the Encounter, up to a maximum of 20 appointments. The data comes from all [place] treatment facilities. Appointment Date/Time Appointment Type Appointme nt Facility Name Sep 19, 2025 01:00 PM [facility] Lab Results: +/- 30 days of [...] Unit Interpretation Reference Range Specimen Type Comment Apr 04, 2025 09:46 AM [facility] PSA SERUM Specimen Type: SERUM No comment entered. Ordering Provider: RADHA MORENO Report Released Date/Time: Oct 20, 2024 12:19 PM Reporting Lab[facility] [address] [address] Performing Lab: [facility] [address] [address] PSA 0.1 ng/mL 0-4 Apr 04, 2025 09:46 AM [facility] LIPID PANEL FASTING SERUM Specimen Type: SERU M No comment entered. Ordering Provider: APOORVA MORENO Report Released Date/Time: Oct 20, 2024 12:19 PM Reporting Lab: [facility] [address] [address] Performing Lab: [facility] [address] [address] CHOLESTEROL 156 mg/dL TRIGLYCERIDE 103 mg/dL 0-150 LDL calculated 91 mg/dL 0-129 CHOL/HDL 3.5 HDL CHOLESTEROL 44 mg/dL >40 Apr 04, 2025 09:46 AM [facility] LIVER FUNCTION SERUM Specimen Type: SERUM No comment entered. Ordering Provider: APOORVA MORENO Report Released Date/Time: Oct 20, 2024 12:19 PM Reporting Lab: [facility] [address] [address] Performing Lab: [facility] [address] [address] PROTEIN,TOTAL 6.5 g/dL 6.4-8.3 ALBUMIN 4.3 g/dL 3.2-4.6 ALKALINE PHOSPHATASE 68 U/L 40-150 AST 24 U/L 5-34 ALT 27 U/L 0-55 BILIRUBIN, TOTAL 0.7 mg/dL 0.2-1.2 Apr 04, 2025 09:46 AM [facility] BASIC METABOLIC PANEL (fasting) SERUM Specime n Type: SERUM No comment entered. Ordering Provider: APOORVA MORENO Report Released Date/Time: Oct 20, 2024 12:19 PM Reporting Lab: [facility] [address] [address] Performing Lab: [address] [address] UREA NITROGEN 15 mg/dL 8-26 GLUCOSE 106 mg/dL H 65-100 SODIUM 139 mmol/L 136-145 POTASSIUM 4.4 mmol/L 3.5-5.1 CHLORIDE 107 mmol/L 98-107 CO2 23 meq/L 23-31 CALCIUM 9.1 mg/dL 8.8-10 CREATININE, Serum 0.61 mg/dL L 0.72-1.25 eGFR(CKD-EPI 2020) >90 mL/min >60 Social History: [...] Current Smoking Status Comment Bri macedo Oct 20, 2024 11:30 AM VA-TOBACCO NEVER U SED OTHER TYPE [facility] Tobacco Use History This section includes a history of the smoking, or tobacco-related health factors, that were collected on or before the date of the Encounter. The data comes from the [place] facility where the Encounter took place. Date/Time Smoking Status/Tobac co Use Comment Facility Oct 20, 2024 11:30 AM VA-TOBACCO USE FORMER CIGARETTES [facility] [place] [facility] Nov 17, 2023 11:30 AM VA-TOBACCO FORMER USER [facility] [place] [facility] Nov 17, 2023 11:30 AM VA-TOBACCO QUIT 15 YRS OR MORE [facility] [place] [facility] Oct 30, 2022 03:20 PM VA-TOBACCO FORMER USER [facility] [place] [facility] Oct 30, 2022 03:20 PM VA-TOBACCO QUIT 15 YRS OR MORE [facility] [place] [facility] Jul 31, 2021 09:41 AM VA-TOBACCO FORMER USER [facility] [place] [facility] Jul 31, 2021 09:41 AM VA-TOBACCO QUIT 15 YRS OR MORE [facility] [place] [facility] Jun 29, 2020 11:00 AM VA-TOBACCO FORMER USER [facility] [place] [facility] Jun 29, 2020 11:00 AM VA-TOBACCO QUIT 15 YRS OR MORE [facility] [place] [facility] Feb 10, 2019 10:14 AM VA-TOBACCO FORMER USER [facility] [place] [facility] Feb 10, 2019 10:14 AM VA-TOBACCO QUIT 15 YRS OR MORE [facility] [place] [facility] Nov 27, 2017 11:12 AM QUIT TOBACCO USE > 7 YEARS AGO [facility] [place] [facility] Nov 05, 2016 11:01 AM QUIT TOBACCO USE > 7 YEARS AGO [facility] [place] [facility] Sep 17, 2015 01:03 PM QUIT TOBACCO USE > 7 YEARS AGO stopped 20 years ago [facility] [place] [facility] Feb 24, 2005 10:09 AM HISTORY OF SMOKING [facility] [place] [facility] May 28, 2004 08:08 AM QUIT TOBACCO USE > 7 YEARS AGO [facility] [place] [facility] Nov 27, 2003 01:12 PM HISTORY OF SMOKING [facility] [place] [facility] Mar 15, 2003 02:03 PM QUIT TOBACCO USE 1-7 YEARS AGO [facility] [place] [facility] Aug 24, 2002 11:07 AM [place]MO[place] [facility] Feb 11, 2002 11:35 AM QUIT TOBACCO USE 1-7 YEARS AGO [place] [facility] [place] [facility] May 21, 2001 01:11 PM HISTORY OF SMOKING quit 5 years ago [facility] Encounter Notes: All associated encounter notes This section contains the clinical notes associated to the Encounter. Date/Time Encounter Note(s) Provider Source Apr 19, 2025 11:34 AM ADMINISTRATIVE NOTE: LOCAL TITLE: ADMINISTRATIVE RECALL NOTE STANDARD TITLE: ADMINISTRATIVE NOTE DATE OF NOTE: APR 19, 2025@11:34 ENTRY DATE: APR 19, 2025@11:34:45 AUTHOR: ARMANDO PENALOZA EXP COSIGNER: URGENCY: STATUS: COMPLETED HAS orders: RTC RTC orders: Unable to contact patient: Attempts to contact: 1st attempt: Left voicemail 2nd attempt: Letter mailed Disposition on Apr 3rd attempt: 4th attempt: /es/ ARMANDO PENALOZA KYLE Signed: 04/19/2025 11:35 ARMANDO PENALOZA [facility] Apr 19, 2025 11:34 AM LETTERS: LOCAL TITLE: PATIENT LETTER (B) STANDARD TITLE: LETTERS DATE OF NOTE: APR 19, 2025@11:34 ENTRY DATE: APR 19, 2025@11:34:12 AUTHOR: ARMANDO PENALOZA EXP COSIGNER: URGENCY: STATUS: COMPLETED APR 19, 2025 HANH COELHO [address] [place], [place] [address] Dear HANH COELHO Thank you for choosing the [facility] [place] [facility] [place] as your primary choice for health care. We want to assure you we are doing everything possible to schedule Veterans for their [place] medical care appointments. Our records indicate you are due for an appointment in PRIMARY CARE. We value you as a patient, and are concerned about your overall health. Future Clinic Visits 09/19/2025 13:00 [facility] OPTOMETRY 4 Patients are encouraged to see their Primary Care Doctor to maintain your health care needs. If you would like to be seen, please contact [facility] at ([phone] or [phone]) to schedule an appointment. We hope to hear from you within 14 days of receipt of this letter to schedule your follow up appointment. If you have any further questions or would like more information regarding VA health care benefits, please call toll free at [phone]), visit the [place] website at www.id.gov/health[place]its , or contact your local [place] Medical Center. Thank you for your service to our nation, and we look forward to hearing from you soon. Sincerely, [facility] ARMANDO PENALOZA [facility]
--- OUTSIDE RECORDS SUMMARY | 2025-04-19 10:52 | XMS_ITS | Continuity of Care Document ---
Author Name [facility] Organization [facility] Care Team Providers Care Production Leader Name Role Phone [facility] Unavailable Unavailable Problems Combined list of problems [...] [facility] Benign essential hypertension (SNOMED CT 0781819) Active Condition [facility] Bloating (ICD-9-CM 787.3) Active Condition [facility] CALCULUS OF KIDNEY Active Condition [facility] [...] Entered By: RADHA MORENO Comment: Colectomy @ [facility] about 2004.Aug 22, 2010 Entered By: RADHA MORENO Comment: His father had colon cancer. [facility] Exposure to potentially hazardous substance Active Condition Oct 14, 2023 Entered By: ANALY SOW Comment: Connect Snomed Code to ICD 10 Code refer to note dated 07/20/23 [facility] former smoker Active Condition [facility] [...] MORENO Comment: TUR 10/2101 Dr Stephens at [facility]. 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 [facility] Tinnitus * (ICD-9-CM 388.30) Active Condition [facility] TINNITUS NOS Active Condition [facility] H. Pylori therapy 1998 Inactive Condition 07/11/2013 [facility] Hiatal Hernia Inactive Condition 01/13/2012 December 162011 Entered By: RADHA MORENO Comment: lap surgery about 2005 was curative. 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 Medication Details Route Status Patient Instructions Prescription Expires Prescription Number Last Dispense Date Ordering Provider Order Date Order Qty Source ALBUTEROL 90MCG/ACTUA T (CFC-F) INHL,ORAL,8 .5GM DOSE COUNTER INHALE 1 PUFF BY MOUTH TWICE DAILY NEEDED FOR BRONCHOS PASM PREVENTI ON RESPIR ATORY (INHAL ATION) 11/17/2024 [id number] [facility]ENO [facility] AMLODIPINE BESYLATE 10MG TAB TAKE ONE TABLET BY MOUTH ONCE DAILY FOR BLOOD PRESSURE /HEART, DO NOT TAKE WITH GRAPEFRU IT JUICE ORAL ACTIVE 06/22/2025 [id number] 5 APOORVA MORENO 2023 90 [facility] AMLODIPINE BESYLATE 10MG TAB TAKE ONE TABLET BY MOUTH ONCE DAILY FOR BLOOD PRESSURE /HEART, DO NOT TAKE WITH GRAPEFRU IT JUICE ORAL DISCONT INUED (EDIT) 02/19/2025 [id number] 4 JOSHAPOORVA Hooks 2023 30 [facility] AMLODIPINE BESYLATE 2.5MG TAB TAKE THREE TABLETS BY MOUTH ONCE DAILY FOR BLOOD PRESSURE /HEART, DO NOT TAKE WITH GRAPEFRU IT JUICE ORAL DISCONT INUED (EDIT) 11/17/2024 [id number] 4 JOSE DE JESUSMARLINE APOORVA Hooks 2023 90 [facility] ATORVASTATI N CA 40MG TAB TAKE ONE-HALF TABLET BY MOUTH ONCE DAILY FOR CHOLESTE ROL REPLACES SIMVASTA TIN. ORAL 02/19/2025 [id number] 5 APOORVA MORENO 2023 45 [facility] CARBOXYMETH YLCELLULOSE NA 0.5% SOLN,OPH INSTILL 1 DROP INTO EACH EYE FOUR TIMES DAILY NEEDED FOR DRY EYE OPHTHA LMIC ACTIVE 08/13/2025 [id number] 5 Samaria ESTRADA NDREW E 2023 15 [facility] CARVEDILOL 12.5MG TAB TAKE ONE TABLET BY MOUTH ONCE DAILY FOR HIGH BLOOD PRESSURE ORAL SUSPEND ED 10/21/2025 [id number] 5 APOORVA MORENO 2024 90 [facility] CARVEDILOL 12.5MG TAB TAKE ONE TABLET BY MOUTH TWICE DAILY FOR HIGH BLOOD PRESSURE ORAL DISCONT INUED (EDIT) 06/22/2025 [id number] 5 APOORVA MORENO 2023 180 [facility] LATANOPROST 0.005% SOLN,OPH INSTILL 1 DROP INTO THE LEFT EYE AT BEDTIME TO REDUCE PRESSURE IN THE EYE OPHTHA LMIC ACTIVE 05/05/2025 [id number] 5 Samaria ESTRADA NDREW E 2023 7.5 [facility] TESTOSTERON E (EQV-ANDROG EL) 1% 5GM/PKT GEL,TOP APPLY 1 PACKET TOPICALL Y ONCE DAILY TO SHOULDER . RUB IN UNTIL DRY, THEN WASH HANDS WITH SOAP AND WATER TOPICA L DISCONT INUED 03/20/2024 [id number] SUSI ALBERTO MD 2023 30 [facility] TESTOSTERON E (EQV-ANDROG EL) 1% 5GM/PKT GEL,TOP APPLY 1 PACKET TOPICALL Y ONCE DAILY TO SHOULDER . RUB IN UNTIL DRY, THEN WASH HANDS WITH SOAP AND WATER TOPICA L 12/22/2024 [id number] 5 APOORVA MORENO 2023 30 [facility] ZOLPIDEM TARTRATE 10MG TAB TAKE ONE TABLET BY MOUTH AT BEDTIME ORAL SUSPEND ED 10/11/2025 [id number] 5 APOORVA MORENO 2024 30 [facility] ZOLPIDEM TARTRATE 10MG TAB TAKE ONE TABLET BY MOUTH AT BEDTIME ORAL DISCONT INUED 04/22/2025 [id number] 5 APOORVA MORENO 2024 30 [facility] ZOLPIDEM TARTRATE 10MG TAB TAKE ONE TABLET BY MOUTH AT BEDTIME FOR SLEEP ORAL DISCONT INUED 11/05/2024 [id number] 5 APOORVA MORENO 2023 30 [facility] ZOLPIDEM TARTRATE 10MG TAB TAKE ONE TABLET BY MOUTH AT BEDTIME FOR SLEEP ORAL 04/22/2024 [id number] 4 APOORVA MORENO 2023 30 [facility] Allergies, Adverse Reactions, Alerts Combined list of allergies from Department of Defense and Veterans Affairs facilities. It does not include entries that were removed or entered in error. Substance Category Reaction Severity Reaction type Status Date Reported Comments Source AUGMENTIN Propensity to adverse reactions to drug (finding) Abdominal pain active 1 [facility] SULFONAMIDE/ RELATED ANTIMICROBIA LS Propensity to adverse reactions to drug (finding) HIVES active 8 [facility] Immunizations Combined list of available immunizations from the Department of Defense and Veterans Affairs facilities. Immunization Series Date Given Administered By Site Reaction Lot Number CVX Code Drug Electric [employer] Checker Status Comments Source COVID-19 (MODERNA), MRNA, LNP-S, PF, 50 MCG/0.5 ML (AGES 12+ YEARS) 2023 SUMANTHCLARA Cota LEFT DELTO ID [id number] 312 complet ed [facility] IN[facility], HIGH-DOSE, TRIVALENT, PF 2023 CLARA JULIO LEFT DELTO ID [id number] 135 complet ed [facility] IN[facility], HIGH-DOSE, QUADRIVALENT 2022 CHARLY CARY E LEFT DELTO ID [id number] 197 complet ed [facility] COVID-19 (MODERNA), MRNA, LNP-S, PF, 50 MCG/0.5 ML (AGES 12+ YEARS) 4 2022 LEFT DELTO ID 312 complet ed HISTORICA L INFORMATI ON - FROM OTHER REGISTRY, [employer] Lot#: [id number] Mfr: MODERNA [email or web address] [facility] INFLUENZA VACCINE, QUADRIVALENT, ADJUVANTED 2021 205 complet ed [facility] COVID-19 (MODERNA), MRNA, LNP-S, PF, 100 MCG/0.5ML DOSE OR 50 MCG/0.25ML DOSE 3 2020 207 complet ed [facility] COVID-19 (MODERNA), MRNA, LNP-S, PF, 100 MCG/0.5 ML DOSE 2 2020 207 complet ed [facility] COVID-19 (MODERNA), MRNA, LNP-S, PF, 100 MCG/0.5 [...] TD(ADULT) UNSPECIFIED FORMULATION 2014 139 complet ed [facility] ED. Probably TD. after a dogbite. [...] 2010 107 complet ed Site: Left Deltoid [facility] [place] [facility] Results Combined list of recent chemistry, hematology and other laboratory results from Department of Defense and Veterans Affairs, ranging from 15 months to all on record, depending upon the facility. Order Name Results Value Reference Range Date Interpretation Specimen Comments Source PSA PROSTATE SPECIFIC AG [MASS/VOLUM E] IN SERUM OR PLASMA BY IMMUNOASSAY 0.1 ng/mL 0 - 4 04/04 Specimen Type: SERUM No comment entered. Ordering Provider: Jimena MORENO Report Released Date/Time: Oct 20, 2024 12:19 PM Reporting [facility] [place] [facility] [address] [facility] [address] Performing Lab: [facility] [place] [facility] [address] [facility] [address] [facility] [place] [facility] LIPID PANEL FASTING CHOLESTEROL [MASS/VOLUM E] IN SERUM OR PLASMA 156 mg/dL 04/04 Specimen Type: SERUM No comment entered. Ordering Provider: Jimena MORENO Report Released Date/Time: Oct 20, 2024 12:19 PM Reporting Lab: [facility] [place] [facility] [address] [facility] [address] Performing Lab: [facility] [place] [facility] [address] [facility] [address] [facility] [place] [facility] LIPID PANEL FASTING TRIGLYCERID E [MASS/VOLUM E] IN SERUM OR PLASMA 103 mg/dL 0 - 150 04/04 Specimen Type: SERUM No comment entered. Ordering Provider: Jimena MORENO Report Released Date/Time: Oct 20, 2024 12:19 PM Reporting Lab: [facility] [place] [facility] [address] [facility] [address] Performing Lab: [facility] [place] [facility] [address] [facility] [address] [facility] [place] [facility] LIPID PANEL FASTING CHOLESTEROL IN LDL [MASS/VOLUM E] IN SERUM OR PLASMA BY CALCULATION 91 mg/dL 0 - 129 04/04 Specimen Type: SERUM No comment entered. Ordering Provider: Jimena MORENO Report Released Date/Time: Oct 20, 2024 12:19 PM Reporting Lab: [facility] [place] [facility] [address] [facility] [address] Performing Lab: [facility] [place] [facility] [address] [facility] [address] [facility] [place] [facility] LIPID PANEL FASTING CHOLESTEROL .TOTAL/CHOL ESTEROL IN HDL [MASS RATIO] IN SERUM OR PLASMA 3.5 04/04 Specimen Type: SERUM No comment entered. Ordering Provider: Jimena MORENO Report Released Date/Time: Oct 20, 2024 12:19 PM Reporting Lab: [facility] [place] [facility] [address] [facility] [address] Performing Lab: [facility] [place] [facility] [address] [facility] [address] [facility] [place] [facility] LIPID PANEL FASTING CHOLESTEROL IN HDL [MASS/VOLUM E] IN SERUM OR PLASMA 44 mg/dL 40 04/04 Specimen Type: SERUM No comment entered. Ordering Provider: Jimena MORENO Report Released Date/Time: Oct 20, 2024 12:19 PM Reporting Lab: [facility] [place] [facility] [address] [facility] [address] Performing Lab: [facility] [place] [facility] [address] [facility] [address] [facility] [place] [facility] LIVER FUNCTION PROTEIN [MASS/VOLUM E] IN SERUM OR PLASMA 6.5 g/dL 6.4 - 8.3 04/04 Specimen Type: SERUM No comment entered. Ordering Provider: Jimena MORENO Report Released Date/Time: Oct 20, 2024 12:19 PM Reporting Lab: [facility] [place] [facility] [address] [facility] [address] Performing Lab: [facility] [place] [facility] [address] [facility] [address] [facility] [place] [facility] LIVER FUNCTION ALBUMIN [MASS/VOLUM E] IN SERUM OR PLASMA BY BROMOCRESOL PURPLE (BCP) DYE BINDING METHOD 4.3 g/dL 3.2 - 4.6 04/04 Specimen Type: SERUM No comment entered. Ordering Provider: Jimena MORENO Report Released Date/Time: Oct 20, 2024 12:19 PM Reporting Lab: [facility] [place] [facility] [address] [facility] [address] Performing Lab: [facility] [address] [address] [facility] [place] [facility] LIVER FUNCTION ALKALINE PHOSPHATASE [ENZYMATIC ACTIVITY/VO LUME] IN SERUM OR PLASMA 68 U/L 40 - 150 04/04 Specimen Type: SERUM No comment entered. Ordering Provider: Jimena MORENO Report Released Date/Time: Oct 20, 2024 12:19 PM Reporting Lab: [facility] [address] Performing Lab: [facility] [place] [address] [address] [facility] LIVER FUNCTION ASPARTATE AMINOTRANSF ERASE [ENZYMATIC ACTIVITY/VO LUME] IN SERUM OR PLASMA BY WITH P-5'-P 24 U/L 5 - 34 04/04 Specimen Type: SERUM No comment entered. Ordering Provider: Jimena MORENO Report Released Date/Time: Oct 20, 2024 12:19 PM Reporting Lab: [facility] [place] [address] [address] Performing Lab: [facility] [place] [address] [address] [facility] LIVER FUNCTION ALANINE AMINOTRANSF ERASE [ENZYMATIC ACTIVITY/VO LUME] IN SERUM OR PLASMA BY WITH P-5'-P 27 U/L 0 - 55 04/04 Specimen Type: SERUM No comment entered. Ordering Provider: Jimena MORENO Report Released Date/Time: Oct 20, 2024 12:19 PM Reporting Lab: [facility] [place] [address] [address] Performing Lab: [facility] [place] [facility] [address] [facility] [address] [facility] LIVER FUNCTION BILIRUBIN.T OTAL [MASS/VOLUM E] IN SERUM OR PLASMA 0.7 mg/dL 0.2 - 1.2 04/04 Specimen Type: SERUM No comment entered. Ordering Provider: Jimena MORENO Report Released Date/Time: Oct 20, 2024 12:19 PM Reporting Lab: [facility] [place] [facility] [address] [facility] [address] Performing Lab: [facility] [address] [facility] [address] [facility] BASIC METABOLIC PANEL (fasting) UREA NITROGEN [MASS/VOLUM E] IN SERUM OR PLASMA 15 mg/dL 8 - 26 04/04 Specimen Type: SERUM No comment entered. Ordering Provider: Jimena MORENO Report Released Date/Time: Oct 20, 2024 12:19 PM Reporting Lab: [facility] [place] [facility] [address] [facility] [address] Performing Lab: [facility] [address] [facility] [address] [facility] BASIC METABOLIC PANEL (fasting) GLUCOSE [MASS/VOLUM E] IN SERUM OR PLASMA 106 mg/dL 65 - 100 04/04 H Specimen Type: SERUM No comment entered. Ordering Provider: Jimena MORENO Report Released Date/Time: Oct 20, 2024 12:19 PM Reporting Lab: [facility] [place] [facility] [address] [facility] [address] Performing Lab: [facility] [place] [facility] [address] [facility] [address] [facility] BASIC METABOLIC PANEL (fasting) SODIUM [MOLES/VOLU ME] IN SERUM OR PLASMA 139 mmol/L 136 - 145 04/04 Specimen Type: SERUM No comment entered. Ordering Provider: Jimena MORENO Report Released Date/Time: Oct 20, 2024 12:19 PM Reporting Lab: [facility] [place] [facility] [address] [facility] [address] Performing Lab: [facility] [place] [facility] [address] [facility] [address] [facility] [place] [facility] BASIC METABOLIC PANEL (fasting) POTASSIUM [MOLES/VOLU ME] IN SERUM OR PLASMA 4.4 mmol/L 3.5 - 5.1 04/04 Specimen Type: SERUM No comment entered. Ordering Provider: Jimena MORENO Report Released Date/Time: Oct 20, 2024 12:19 PM Reporting Lab: [facility] [place] [facility] [address] [facility] [address] Performing Lab: [facility] [place] [facility] [address] [facility] [address] [facility] [place] [facility] BASIC METABOLIC PANEL (fasting) CHLORIDE [MOLES/VOLU ME] IN SERUM OR PLASMA 107 mmol/L 98 - 107 04/04 Specimen Type: SERUM No comment entered. Ordering Provider: Jimena MORENO Report Released Date/Time: Oct 20, 2024 12:19 PM Reporting Lab: [facility] [place] [facility] [address] [facility] [address] Performing Lab: [facility] [place] [facility] [address] [facility] [address] [facility] [place] [facility] BASIC METABOLIC PANEL (fasting) CARBON DIOXIDE, TOTAL [MOLES/VOLU ME] IN SERUM OR PLASMA 23 meq/L 23 - 31 04/04 Specimen Type: SERUM No comment entered. Ordering Provider: Jimena MORENO Report Released Date/Time: Oct 20, 2024 12:19 PM Reporting Lab: [facility] [place] [facility] [address] [facility] [address] Performing Lab: [facility] [place] [facility] [address] [facility] [address] [facility] [place] [facility] BASIC METABOLIC PANEL (fasting) CALCIUM [MASS/VOLUM E] IN SERUM OR PLASMA 9.1 mg/dL 8.8 - 10 04/04 Specimen Type: SERUM No comment entered. Ordering Provider: Jimena MORENO Report Released Date/Time: Oct 20, 2024 12:19 PM Reporting Lab: [facility] [place] [facility] [address] [facility] [address] Performing Lab: [facility] [address] [facility] [address] [facility] BASIC METABOLIC PANEL (fasting) CREATININE [MASS/VOLUM E] IN SERUM OR PLASMA 0.61 mg/dL 0.72 - 1.25 04/04 L Specimen Type: SERUM No comment entered. Ordering Provider: Jimena MORENO Report Released Date/Time: Oct 20, 2024 12:19 PM Reporting Lab: [facility] [address] [address] Performing Lab: [facility] [address] [address] [facility] BASIC METABOLIC PANEL (fasting) GLOMERULAR FILTRATION RATE/1.73 SQ M.PREDICTED [VOLUME RATE/AREA] IN SERUM, PLASMA OR BLOOD BY CREATININE- BASED FORMULA (CKD-EPI 2020) >90mL/ min 60 04/04 Specimen Type: SERUM No comment entered. Ordering Provider: Jimena MORENO Report Released Date/Time: Oct 20, 2024 12:19 PM Reporting Lab: [facility] [place] [facility] [address] [facility] [address] Performing Lab: [facility] [address] [address] [facility] LIVER FUNCTION PROTEIN [MASS/VOLUM E] IN SERUM OR PLASMA 7.2 g/dL 6.0 - 8.3 10/14 Specimen Type: SERUM No comment entered. Ordering Provider: Jimena MORENO Report Released Date/Time: Jun 21, 2024 02:06 PM Reporting Lab: [facility] [place] [facility] [address] [facility] [address] Performing Lab: [facility] [place] [facility] [address] [facility] [address] [facility] [place] [facility] LIVER FUNCTION ALBUMIN [MASS/VOLUM E] IN SERUM OR PLASMA 4.1 g/dL 3.5 - 5.0 10/14 Specimen Type: SERUM No comment entered. Ordering Provider: Jimena MORENO Report Released Date/Time: Jun 21, 2024 02:06 PM Reporting Lab: [facility] [place] [facility] [address] [facility] [address] Performing Lab: [facility] [place] [facility] [address] [facility] [address] [facility] [place] [facility] LIVER FUNCTION ALKALINE PHOSPHATASE [ENZYMATIC ACTIVITY/VO LUME] IN SERUM OR PLASMA 64 U/L 40 - 150 10/14 Specimen Type: SERUM No comment entered. Ordering Provider: Jimena MORENO Report Released Date/Time: Jun 21, 2024 02:06 PM Reporting Lab: [facility] [place] [facility] [address] [facility] [address] Performing Lab: [facility] [place] [facility] [address] [facility] [address] [facility] [place] [facility] LIVER FUNCTION ASPARTATE AMINOTRANSF ERASE [ENZYMATIC ACTIVITY/VO LUME] IN SERUM OR PLASMA 19 U/L 5 - 34 10/14 Specimen Type: SERUM No comment entered. Ordering Provider: Jimena MORENO Report Released Date/Time: Jun 21, 2024 02:06 PM Reporting Lab: [facility] [place] [facility] [address] [facility] [address] Performing Lab: [facility] [place] [facility] [address] [facility] [address] [facility] [place] [facility] LIVER FUNCTION ALANINE AMINOTRANSF ERASE [ENZYMATIC ACTIVITY/VO LUME] IN SERUM OR PLASMA 26 U/L 10/14 Specimen Type: SERUM No comment entered. Ordering Provider: Jimena MORENO Report Released Date/Time: Jun 21, 2024 02:06 PM Reporting Lab: [facility] [place] [facility] [address] [facility] [address] Performing Lab: [facility] [place] [facility] [address] [facility] [address] [facility] [place] [facility] LIVER FUNCTION BILIRUBIN.T OTAL [MASS/VOLUM E] IN SERUM OR PLASMA 0.7 mg/dL 0.2 - 1.2 10/14 Specimen Type: SERUM No comment entered. Ordering Provider: Jimena MORENO Report Released Date/Time: Jun 21, 2024 02:06 PM Reporting Lab: [facility] [place] [facility] [address] [facility] [address] Performing Lab: [facility] [place] [facility] [address] [facility] [address] [facility] [place] [facility] BASIC METABOLIC PANEL (fasting) UREA NITROGEN [MASS/VOLUM E] IN SERUM OR PLASMA 15 mg/dL 7 - 25 10/14 Specimen Type: SERUM No comment entered. Ordering Provider: Jimena MORENO Report Released Date/Time: Jun 21, 2024 02:06 PM Reporting Lab: [facility] [place] [facility] [address] [facility] [address] Performing Lab: [facility] [place] [facility] [address] [facility] [address] [facility] [place] [facility] BASIC METABOLIC PANEL (fasting) GLUCOSE [MASS/VOLUM E] IN SERUM OR PLASMA 110 mg/dL 65 - 100 10/14 H Specimen Type: SERUM No comment entered. Ordering Provider: Jimena MORENO Report Released Date/Time: Jun 21, 2024 02:06 PM Reporting Lab: [facility] [place] [facility] [address] [facility] [address] Performing Lab: [facility] [place] [facility] [address] [facility] [address] [facility] [place] [facility] BASIC METABOLIC PANEL (fasting) SODIUM [MOLES/VOLU ME] IN SERUM OR PLASMA 139 mmol/L 135 - 145 10/14 Specimen Type: SERUM No comment entered. Ordering Provider: Jimena MORENO Report Released Date/Time: Jun 21, 2024 02:06 PM Reporting Lab: [facility] [address] Performing Lab: [facility] [address] [facility] BASIC METABOLIC PANEL (fasting) POTASSIUM [MOLES/VOLU ME] IN SERUM OR PLASMA 4.1 mmol/L 3.5 - 5.0 10/14 Specimen Type: SERUM No comment entered. Ordering Provider: Jimena MORENO Report Released Date/Time: Jun 21, 2024 02:06 PM Reporting Lab: [facility]TR[facility] [address] [address] Performing Lab: [facility] [address] [facility]ITALRGADSD[facility]ERN [facility] BASIC METABOLIC PANEL (fasting) CHLORIDE [MOLES/VOLU ME] IN SERUM OR PLASMA 107 mmol/L 100 - 110 10/14 Specimen Type: SERUM No comment entered. Ordering Provider: Jimena MORENO Report Released Date/Time: Jun 21, 2024 02:06 PM Reporting Lab: [facility] [address] Performing Lab: [facility] [address] [facility] BASIC METABOLIC PANEL (fasting) CARBON DIOXIDE, TOTAL [MOLES/VOLU ME] IN SERUM OR PLASMA 23 meq/L 20 - 30 10/14 Specimen Type: SERUM No comment entered. Ordering Provider: Jimena MORENO Report Released Date/Time: Jun 21, 2024 02:06 PM Reporting Lab: [facility] [address] Performing Lab: [facility] [address] [facility] [address] [facility]ITALRGADSDEN [facility]ERN [facility] BASIC METABOLIC PANEL (fasting) CALCIUM [MASS/VOLUM E] IN SERUM OR PLASMA 9.5 mg/dL 8.5 - 10.2 10/14 Specimen Type: SERUM No comment entered. Ordering Provider: Jimena MORENO Report Released Date/Time: Jun 21, 2024 02:06 PM Reporting Lab: [facility] [address] [facility] [address] Performing Lab: [facility]ITALRGADSD[facility] CENTERN [address] [address] [facility] BASIC METABOLIC PANEL (fasting) CREATININE [MASS/VOLUM E] IN SERUM OR PLASMA 0.68 mg/dL 0.50 - 1.40 10/14 Specimen Type: SERUM No comment entered. Ordering Provider: Jimena MORENO Report Released Date/Time: Jun 21, 2024 02:06 PM Reporting Lab: [facility]RGADSD[facility]ENTERN [facility] [address] [facility] [address] Performing Lab: [facility]N [address] [address] [facility] BASIC METABOLIC PANEL (fasting) GLOMERULAR FILTRATION RATE/1.73 SQ M.PREDICTED [VOLUME RATE/AREA] IN SERUM, PLASMA OR BLOOD BY CREATININE- BASED FORMULA (CKD-EPI 2020) >90mL/ min 60 10/14 Specimen Type: SERUM No comment entered. Ordering Provider: Jimena MORENO Report Released Date/Time: Jun 21, 2024 02:06 PM Reporting Lab: [facility]ITALRGADSD[facility]ERN [facility] [address] Performing Lab: [facility]ITALRGADSD[facility]ENTERN [address] [address] [facility] LIPID PANEL FASTING CHOLESTEROL [MASS/VOLUM E] IN SERUM OR PLASMA 161 mg/dL 10/14 Specimen Type: SERUM No comment entered. Ordering Provider: Jimena MORENO Report Released Date/Time: Jun 21, 2024 02:06 PM Reporting Lab: [facility] [facility] [address] [facility] [address] Performing Lab: [facility] [place] [facility] [address] [facility] [address] [facility] LIPID PANEL FASTING TRIGLYCERID E [MASS/VOLUM E] IN SERUM OR PLASMA 99 mg/dL 0 - 150 10/14 Specimen Type: SERUM No comment entered. Ordering Provider: Jimena MORENO Report Released Date/Time: Jun 21, 2024 02:06 PM Reporting Lab: [facility] [place] [facility] [address] [facility] [address] Performing Lab: [facility] [place] [address] [address] [facility] [facility] LIPID PANEL FASTING CHOLESTEROL IN LDL [MASS/VOLUM E] IN SERUM OR PLASMA BY CALCULATION 95 mg/dL 0 - 129 10/14 Specimen Type: SERUM No comment entered. Ordering Provider: Jimena MORENO Report Released Date/Time: Jun 21, 2024 02:06 PM Reporting Lab: [facility] [place] [facility] [address] [facility] [address] Performing Lab: [facility] [place] [address] [address] [facility] LIPID PANEL FASTING CHOLESTEROL .TOTAL/CHOL ESTEROL IN HDL [MASS RATIO] IN SERUM OR PLASMA 3.5 10/14 Specimen Type: SERUM No comment entered. Ordering Provider: Jimena MORENO Report Released Date/Time: Jun 21, 2024 02:06 PM Reporting Lab: [facility] [place] [facility] [address] [facility] [address] Performing Lab: [facility] [place] [facility] [address] [facility] [address] [facility] LIPID PANEL FASTING CHOLESTEROL IN HDL [MASS/VOLUM E] IN SERUM OR PLASMA 46 mg/dL 40 - 60 10/14 Specimen Type: SERUM No comment entered. Ordering Provider: Jimena MORENO Report Released Date/Time: Jun 21, 2024 02:06 PM Reporting Lab: [facility] [place] [facility] [address] [facility] [address] Performing Lab: [facility] [address] [facility] [address] [facility] [place] [facility] LIPID PANEL FASTING CHOLESTEROL [MASS/VOLUM E] IN SERUM OR PLASMA 166 mg/dL 06/14 Specimen Type: SERUM No comment entered. Ordering Provider: Jimena MORENO Report Released Date/Time: Jun 08, 2024 11:04 AM Reporting Lab: [facility] [address] Performing Lab: [facility] [address] [facility] LIPID PANEL FASTING TRIGLYCERID E [MASS/VOLUM E] IN SERUM OR PLASMA 71 mg/dL 0 - 150 06/14 Specimen Type: SERUM No comment entered. Ordering Provider: Jimena MORENO Report Released Date/Time: Jun 08, 2024 11:04 AM Reporting Lab: [facility] [place] [address] [address] Performing Lab: [facility] [address] [facility] [address] [facility] [place] [facility] LIPID PANEL FASTING CHOLESTEROL IN LDL [MASS/VOLUM E] IN SERUM OR PLASMA BY CALCULATION 95 mg/dL 0 - 129 06/14 Specimen Type: SERUM No comment entered. Ordering Provider: Jimena MORENO Report Released Date/Time: Jun 08, 2024 11:04 AM Reporting Lab: [facility] [place] [facility] [address] [facility] [address] Performing Lab: [facility] [address] [address] [facility] LIPID PANEL FASTING CHOLESTEROL .TOTAL/CHOL ESTEROL IN HDL [MASS RATIO] IN SERUM OR PLASMA 2.9 06/14 Specimen Type: SERUM No comment entered. Ordering Provider: Jimena MORENO Report Released Date/Time: Jun 08, 2024 11:04 AM Reporting Lab: [facility] [address] [facility] [address] Performing Lab: [facility] [address] [facility] [address] [facility]N [facility] LIPID PANEL FASTING CHOLESTEROL IN HDL [MASS/VOLUM E] IN SERUM OR PLASMA 57 mg/dL 40 - 60 06/14 Specimen Type: SERUM No comment entered. Ordering Provider: Jimena MORENO Report Released Date/Time: Jun 08, 2024 11:04 AM Reporting Lab: [facility] [address] [facility] [address] Performing Lab: [facility] [place] [facility] [address] [facility] [address] [facility]RL [facility] BASIC METABOLIC PANEL (fasting) UREA NITROGEN [MASS/VOLUM E] IN SERUM OR PLASMA 21 mg/dL 7 - 25 06/14 Specimen Type: SERUM No comment entered. Ordering Provider: Jimena MOREON Report Released Date/Time: Jun 08, 2024 11:04 AM Reporting Lab: [facility] [place] [facility] [address] [facility] [address] Performing Lab: [facility] [place] [facility] [address] [facility] [address] [facility] BASIC METABOLIC PANEL (fasting) GLUCOSE [MASS/VOLUM E] IN SERUM OR PLASMA 105 mg/dL 65 - 100 06/14 H Specimen Type: SERUM No comment entered. Ordering Provider: Jimena MORENO Report Released Date/Time: Jun 08, 2024 11:04 AM Reporting Lab: [facility] [place] [facility] [address] [facility] [address] Performing Lab: [facility] [place] [facility] [address] [facility] [address] [facility] BASIC METABOLIC PANEL (fasting) SODIUM [MOLES/VOLU ME] IN SERUM OR PLASMA 138 mmol/L 135 - 145 06/14 Specimen Type: SERUM No comment entered. Ordering Provider: Jimena MORENO Report Released Date/Time: Jun 08, 2024 11:04 AM Reporting Lab: [facility] [place] [facility] [address] [facility] [address] Performing Lab: [facility] [place] [facility] [address] [facility] [address] [facility] BASIC METABOLIC PANEL (fasting) POTASSIUM [MOLES/VOLU ME] IN SERUM OR PLASMA 4.2 mmol/L 3.5 - 5.0 06/14 Specimen Type: SERUM No comment entered. Ordering Provider: Jimena MORENO Report Released Date/Time: Jun 08, 2024 11:04 AM Reporting Lab: [facility] [place] [facility] [address] [facility] [address] Performing Lab: [facility] [place] [facility] [address] [facility] [address] [facility] [place] [facility] BASIC METABOLIC PANEL (fasting) CHLORIDE [MOLES/VOLU ME] IN SERUM OR PLASMA 107 mmol/L 100 - 110 06/14 Specimen Type: SERUM No comment entered. Ordering Provider: Jimena MORENO Report Released Date/Time: Jun 08, 2024 11:04 AM Reporting Lab: [facility] [place] [facility] [address] [facility] [address] Performing Lab: [facility] [place] [facility] [address] [facility] [address] [facility] BASIC METABOLIC PANEL (fasting) CARBON DIOXIDE, TOTAL [MOLES/VOLU ME] IN SERUM OR PLASMA 22 meq/L 20 - 30 06/14 Specimen Type: SERUM No comment entered. Ordering Provider: Jimena MORENO Report Released Date/Time: Jun 08, 2024 11:04 AM Reporting Lab: [facility] [place] [facility] [address] [facility] [address] Performing Lab: [facility] [place] [facility] [address] [facility] [address] [facility] BASIC METABOLIC PANEL (fasting) CREATININE [MASS/VOLUM E] IN SERUM OR PLASMA 0.74 mg/dL 0.50 - 1.40 06/14 Specimen Type: SERUM No comment entered. Ordering Provider: Jimena MORENO Report Released Date/Time: Jun 08, 2024 11:04 AM Reporting Lab: [facility] [place] [facility] [address] [facility] [address] Performing Lab: [facility] [place] [facility] [address] [facility] [address] [facility] BASIC METABOLIC PANEL (fasting) GLOMERULAR FILTRATION RATE/1.73 SQ M.PREDICTED [VOLUME RATE/AREA] IN SERUM, PLASMA OR BLOOD BY CREATININE- BASED FORMULA (CKD-EPI 2020) >90mL/ min 60 06/14 Specimen Type: SERUM No comment entered. Ordering Provider: Jimena MORENO Report Released Date/Time: Jun 08, 2024 11:04 AM Reporting Lab: [facility] [place] [facility] [address] [facility] [address] Performing Lab: [facility] [place] [facility] [address] [facility] [address] [facility] LIVER FUNCTION PROTEIN [MASS/VOLUM E] IN SERUM OR PLASMA 6.8 g/dL 6.0 - 8.3 06/14 Specimen Type: SERUM No comment entered. Ordering Provider: Jimena MORENO Report Released Date/Time: Jun 08, 2024 11:04 AM Reporting Lab: [facility] [place] [facility] [address] [facility] [address] Performing Lab: [facility] [place] [facility] [address] [facility] [address] [facility] LIVER FUNCTION ALBUMIN [MASS/VOLUM E] IN SERUM OR PLASMA 4.0 g/dL 3.5 - 5.0 06/14 Specimen Type: SERUM No comment entered. Ordering Provider: Jimena MORENO Report Released Date/Time: Jun 08, 2024 11:04 AM Reporting Lab: [facility] [place] [facility] [address] [facility] [address] Performing Lab: [facility] [place] [facility] [address] [facility] [address] [facility] LIVER FUNCTION ALKALINE PHOSPHATASE [ENZYMATIC ACTIVITY/VO LUME] IN SERUM OR PLASMA 63 U/L 40 - 150 06/14 Specimen Type: SERUM No comment entered. Ordering Provider: Jimena MORENO Report Released Date/Time: Jun 08, 2024 11:04 AM Reporting Lab: [facility] [place] [facility] [address] [facility] [address] Performing Lab: [facility] [place] [facility] [address] [facility] [address] [facility] [place] [facility] LIVER FUNCTION ASPARTATE AMINOTRANSF ERASE [ENZYMATIC ACTIVITY/VO LUME] IN SERUM OR PLASMA 18 U/L 5 - 34 06/14 Specimen Type: SERUM No comment entered. Ordering Provider: Jimena MORENO Report Released Date/Time: Jun 08, 2024 11:04 AM Reporting Lab: [facility] [place] [facility] [address] [facility] [address] Performing Lab: [facility] [place] [facility] [address] [facility] [address] [facility] LIVER FUNCTION ALANINE AMINOTRANSF ERASE [ENZYMATIC ACTIVITY/VO LUME] IN SERUM OR PLASMA 30 U/L 06/14 Specimen Type: SERUM No comment entered. Ordering Provider: Jimena MORENO Report Released Date/Time: Jun 08, 2024 11:04 AM Reporting Lab: [facility] [place] [facility] [address] [facility] [address] Performing Lab: [facility] [address] [facility] [address] [facility] LIVER FUNCTION BILIRUBIN.T OTAL [MASS/VOLUM E] IN SERUM OR PLASMA 0.8 mg/dL 0.2 - 1.2 06/14 Specimen Type: SERUM No comment entered. Ordering Provider: Jimena MORENO Report Released Date/Time: Jun 08, 2024 11:04 AM Reporting Lab: [facility] [address] [facility] [address] Performing Lab: [facility] [address] [facility] [address] [facility] Vital Signs Combined list of inpatient and outpatient Vital Signs from Department of Defense and Veterans Affairs, ranging from 12 months to all on record, depending upon the facility. Vital Sign Value Date Comments Source SYSTOLIC BLOOD PRESSURE 120 10/21/19 25 11:48:06 [facility] DIASTOLIC BLOOD PRESSURE 88 025 11:48:06 [facility] PULSE OXIMETRY 93 10/20/2024 11:48:06 [facility] WEIGHT 201 10/20/2024 11:48:06 [facility] BMI 32 kg/m2 10/20/2024 11:48:06 [facility] PAIN 0 10/20/2024 11:48:06 [facility] [...] 06/21/2024 12:58:24 [facility] Encounters Combined list of: 1) Encounters from Department of Veterans Affairs facilities going backup to the last 18 months, not all VA inpatient encounters are included; 2) Encounters from the Department of [facility] facilities going backup to 280 months. Location Location Details Encounter Type Encounter Number Reason For Visit Attending Provider ADM Date DC Date Status Disposition Source [facility] [id number] 10/20 [facility] [id number] 10/28 [facility] En[facility] [id number] 11/15 [facility] OFFICE O/P EST LOW 20 MIN [id number] Diagnos is: ICD-10- CM I11.9 Hyperte nsive heart disease without heart failure APOORVA MORENO 11/16 [facility] En[facility] [id number] 11/16 [facility] En[facility] [id number] 11/18 [facility] En[facility] [id number] 11/29 [facility] En[facility] [id number] 12/13 [facility] MTMS BY PHARM ADDL 15 MIN [id number] Diagnos is: ICD-10- CM 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 SANDEEP,MADAI DOMINGO S 12/14 [facility] En[facility] [id number] 02/10 [facility] OFFICE O/P [place] 60 MIN [id number] Lauren PEREIRA 02/10 [facility] Encounter [id number] Diagnos is: ICD-10- CM M47.896 Other spondyl osis, lumbar region Lauren PEREIRA 02/10 [facility] En[facility] [id number] 02/10 [facility] En[facility] [id number] 02/18 [facility] OFFICE O/P EST LOW 20 MIN [id number] Diagnos is: ICD-10- CM I11.9 Hyperte nsive heart disease without heart failure APOORVA MORENO 02/18 [facility] Outpatient Encounter [id number] [facility] Outpatient Encounter [id number] [facility] Outpatient Encounter [id number] 1.05/04 [facility] [place] [facility] [id number] Diagnos is: ICD-10- CM M47.896 Other spondyl osis, lumbar region SKELTON ALEXANDRATRISTIAN LEIGH 05/05 [place] [facility] [id number] Diagnos is: ICD-10- CM M47.896 Other spondyl osis, lumbar region SKELTONALEXANDRA SULLIVAN LU 05/20 [place] THERAPEUTI [place] EXERCISES [id number] Diagnos is: ICD-10- CM M47.896 Other spondyl osis, lumbar region SKELTON, ALEXANDRATRISTIAN LEIGH 06/10 [place] [facility] Outpatient Encounter [id number] 1.06/14 [facility] [place] [facility] [id number] Diagnos is: ICD-10- CM M47.896 Other spondyl osis, lumbar region SKELTONYI SULLIVANTRISTIAN LEIGH 06/16 [place] [facility] Outpatient Encounter [id number] 06/17 [facility] OFFICE O/P EST LOW 20 MIN [id number] Diagnos is: ICD-10- CM M47.26 Other spondyl osis with radicul opathy, lumbar region Lauren PEREIRA 06/21 [facility] OFFICE O/P EST LOW 20 MIN [id number] Diagnos is: ICD-10- CM I11.9 Hyperte nsive heart disease without heart failure APOORVA MORENO 06/21 [facility] Outpatient Encounter [id number] 06/30 [facility] OFF/OP EST MAY X REQ PHY/QHP [id number] Diagnos is: ICD-10- CM I11.9 Hyperte nsive heart disease without heart failure Cipriano GONZALES 07/19 [facility] EXTENDED VISUAL FIELD XM [id number] 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, left eye, mild stage BORASKI,AN BRANDYN E 08/12 [facility] CMPTR OPHTH IMG OPTIC NERVE [id number] 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, left eye, mild stage BORASKI,AN BRANDYN E 08/12 [facility] INTRM OPH EXAM EST PATIENT [id number] 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, left eye, mild stage SEANMASOUD BRANDYN E 08/12 [facility] OFF/OP EST MAY X REQ PHY/QHP [id number] Diagnos is: ICD-10- CM I11.9 Hyperte nsive heart disease without heart failure Cipriano GONZALES 08/12 [facility] NQHP OL DIG ASSMT&MGMT 5-10 [id number] Diagnos is: ICD-10- CM 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 SOVEROW,CH RISTY A 10/07 [facility] OFFICE O/P EST LOW 20 MIN [id number] Diagnos is: ICD-10- CM I11.9 Hyperte nsive heart disease without heart failure APOORVA MORENO 10/20 [facility] Outpatient Encounter [id number] 03/10 [facility] Outpatient Encounter [id number] APOORVA MORENO 04/04 [facility] Outpatient Encounter [id number] 04/10 [facility] Outpatient Encounter [id number] 04/19 [facility] Social History Combined list of available smoking, tobacco, and other social history from Department of Defense and Veterans Affairs facilities. Social History Type Response Date Comment Source Tobacco smoking status NHIS SD-TOBACCO NEVER USED OTHER TYPE 10/20/2024 [facility] [place] [facility] History of tobacco use SD-TOBACCO FORMER USER 11/17/2023 [facility] History of tobacco use SD-TOBACCO FORMER USER 10/30/2022 [facility] of [facility] MORE 07/31/2021 [facility] [place] of [facility]2020 [facility] [place] [facility] History of tobacco use SD-TOBACCO QUIT 15 YRS OR MORE 02/10/2019 [facility] [place] [facility] History of tobacco use QUIT TOBACCO USE > 7 YEARS AGO 11/27/2017 [facility] [place] [facility] History of tobacco use QUIT TOBACCO USE > 7 YEARS AGO 11/05/2016 [facility] [place] [facility] History of tobacco use QUIT TOBACCO USE > 7 YEARS AGO 09/17/2015 stopped 20 years ago [facility] [place] [facility] History of tobacco use HISTORY OF SMOKING 02/24/2005 [facility] [place] [facility] History of tobacco use QUIT TOBACCO USE > 7 YEARS AGO 05/28/2004 [facility] [place] [facility] History of tobacco use HISTORY OF SMOKING 11/27/2003 [facility] [place] [facility] History of tobacco use QUIT TOBACCO USE 1-7 YEARS AGO 03/15/2003 [facility] [place] [facility] History of tobacco use HISTORY OF SMOKING 08/24/2002 [facility] [place] [facility] History of tobacco use QUIT TOBACCO USE 1-7 YEARS AGO 02/11/2002 [facility] [place] [facility] History of tobacco use HISTORY OF SMOKING 05/21/2001 quit 5 years ago [facility] [place] [facility] Plan of Care List of future care activities from Department of Veterans Affairs facilities. Additional future care activities may be listed in the Assessment and Plan section. Date/Time Care Activity Care Activity Detail Facili ty 09/19/2025 AMBULATORY - MEDICINE AMBULATORY - MEDICI [facility]
[2025-04-19 14:05] VITALS: BP 124/80; PULSE 75; BMI 28.3
--- NOTE | 2025-04-19 14:05 | A.OFFVIS_ITS ---
Vital Signs 04/19/25 14:05 Height 5 ft 9 in Weight 191 lb 12.835 oz BMI 28.3 BP 124/80 Blood Pressure Location Lt brachial Position Sitting Pulse 75 Pulse Source Monitor Intake Visit Reasons: Follow up after testing Allergies sulfamethoxazole (From Bactrim) Allergy (Verified 04/07/25 11:26) Mouth sores, Stomach pains trimethoprim (From Bactrim) Allergy (Verified 04/07/25 11:26) Mouth sores, Stomach pains Sulfa (Sulfonamide Antibiotics) Adverse Reaction (Intermediate, Verified 04/07/25 11:26) MOUTH SORES, RASH Medication List - Last Reconciled 04/19/25 by Giancarlo Leigh MD amlodipine 5 mg PO DAILY atorvastatin 20 mg PO BEDTIME carvedilol (Coreg) 6.25 mg PO BID 90 days cholecalciferol (vitamin D3) 2,000 units PO DAILY 30 days docusate sodium (Colace) 100 mg PO BID PRN multivitamin 1 tab PO DAILY testosterone 1 packet transdermal DAILY 30 days zolpidem (Ambien) 10 mg PO BEDTIME PRN HPI Comments Details: Ermias returns for follow-up regarding hypertension and ascending aortic aneurysm. Overall, he states he is doing fine. No clear-cut cardiac symptoms. No angina or shortness of breath or anything along those lines. With regard to blood pressure, he was on labetalol in the past but not on it anymore. Has had lisinopril but due to high potassium that was stopped. Currently on amlodipine and carvedilol. [facility] Medical History HTN (hypertension) BPH (benign prostatic hyperplasia) Encounter to establish care Erectile dysfunction due to arterial insufficiency Fracture, thoracic vertebra, compression Lumbar degenerative disc disease Essential hypertension Ascending aortic aneurysm Annual physical exam Normal colonoscopy Prostate CA Allergic rhinitis Polycythemia Hyperlipidemia Hearing problem Insomnia Hypogonadism male Osteoporosis Surgical History Hx of transurethral resection of prostate Hx of cystoscopy History of esophagogastroduodenoscopy (EGD) Hx of appendectomy History of repair of hiatal hernia Hx of hernia repair History of colon resection Hx of nasal septoplasty Hx of colonoscopy Family History Father Alzheimer disease Colon cancer Colon polyps Mother No problems noted. Other Mental health disorder Social History Housing: House Alcohol intake: current Alcohol intake frequency: holidays/special occasions only Patient Tobacco Use Status: Former Tobacco user e-Cigarette/Vaping Use: Never Used Second Hand Smoke Exposure: No service: Yes Current occupational status: employed and retired Current occupational exposures/hazards: No Cognitive needs: No Hearing needs: Yes Vision needs: No Review of Systems Const Denies weakness ENT Denies dizziness Card Denies chest pain, Denies chest pain with activity, Denies syncope, Denies rapid heart rate, Denies pedal edema, Denies edema, Denies leg edema, Denies lightheadedness, Denies palpitations, Denies dyspnea, Denies dyspnea on exertion and Denies orthopnea Resp Denies cough, Denies dyspnea and Denies dyspnea on exertion GI Denies hematochezia and Denies change in stool character Musc Denies abnormal gait, Denies muscle cramps, Denies muscle weakness, Denies numbness, Denies radiating pain into limb and Denies tingling Neuro Denies abnormal gait, Denies dizziness, Denies syncope, Denies numbness, Denies tingling and Denies weakness Endo Denies palpitations Physical Exam Vital Signs: Last Vital Signs Pulse 75 04/19/25 14:05 BP 124/80 04/19/25 14:05 BMI result Body Mass Index 28.3 Const General: comfortable and no acute distress Orientation/consciousness: patient oriented x3 HEENT Other: Unremarkable Head: Yes normal to inspection Neck Neck: Yes normal visual inspection Chest Chest palpation & inspection: normal inspection of the chest Resp Auscultation: clear to auscultation bilaterally Cardio Palpation: normal PMI Heart sounds: S1 normal heart sound present, S2 normal heart sound present, no gallops, no murmurs and no rubs GI Palpation (GI): Soft to palpation Back/Spine/Pelvis Other: unremarkable Skin General skin exam: no rashes or lesions noted Neuro General: patient oriented x3 Extrem General: Yes normal to inspection Psych Mental Status: mental status grossly normal Office Procedures EKG Details: EKG with underlying sinus rhythm at 75/Min; no ischemic changes; [place] [address]-[id number], Complete Assessment & Plan Assessment & Plan (1) Ascending aortic aneurysm: Code(s): I71.2 - Thoracic aortic aneurysm, without rupture Category: Medical Qualifiers: Presence of rupture: without rupture Qualified Code(s): I71.21 - Aneurysm of the ascending aorta, without rupture Plan: In the most recent echocardiogram, ascending aortic size 4.1 cm. Sinus of Valsalva 4.2 cm. Overall, comparable to prior. Last myocardial perfusion imaging study from 2017 was normal. Prior to that, in 2013 was normal. We will follow this on echocardiograms. (2) Essential hypertension: Code(s): I10 - Essential (primary) hypertension Category: Medical Plan: Has been on labetalol but stopped for unclear reasons. Lisinopril was taken off for high potassium. Currently on amlodipine/carvedilol. No changes. Plan Total time spent including review of data, counseling, documentation, coordination of care-32 minutes. Coding Level of Care Code Est Pt Level 4 (58879) Diagnoses Aneurysm of ascending aorta without rupture I71.21 Presence of rupture: without rupture Essential hypertension I10 CPT Codes EKG - CPT: 67555-[id number], Complete ([id number])
--- OUTSIDE RECORDS SUMMARY | 2025-04-19 15:56 | XMS_ITS | Encounter Summary ---
Author Name [facility] Organization [facility] Address [address] [place] [address] Care Team Providers Care It Infrastructure Architect Name Role Phone APOORVA MORENO Primary Care [...] ([facility]) Apr 17, 2013 [id number] COELHO PATIENT [facility] [place] MEDICARE ADVANTAGE MCR ([facility]) Apr 17, 2013 [id number] Lauren COELHO PATIENT Selected Encounter This section includes the information on record at MD for the Encounter. Date/Time Encounter Type Encounter Description Reason Pro vider Source IHE Encounter Template Text not used by [facility]
--- OUTSIDE RECORDS SUMMARY | 2025-04-19 15:56 | XMS_ITS | Patient Health Record ---
Author Organization [facility] Address [address] [place] [id number] Care Team Providers Care Animal Cop Name Role Phone Cesilia Anguiano Primary Care Provider Unav ailRenato Moss Unavailable [phone] Allergies Allergen (clinical drug ingredient) Drug/Non Drug [...] Problem Status W/U Status Risk Notes Problem [id number] Encounter for screening for malignant neoplasm of colon (Z12.11) Active confirmed Problem 887626698 History of adenomatous polyp of colon (Z86.010) Active confirmed Problem 40817107 Irritable bowel syndrome without diarrhea (K58.9) Active confirmed Problem 331313819 Diverticulosis (K57.90) Active confirmed Problem 850961724555100 Preprocedural examination (Z01.818) Active confirmed Problem History of polyp of colon (situation) (757388089) History of colon polyps (Z86.010) Active confirmed Problem 247972827 Family history o f colon cancer (Z80.0) Active confirmed Problem 57679041 Change in bowel function (R19.4) Active confirmed Problem 24614577 Diarrhea, unspecified type (R19.7) Active confirmed Problem Diverticulosis of colon (605747381) Diverticulosis of colon (K57.30) Active confirmed Problem 528361437 LLQ abdominal pain (R10.32) Active confirmed Plan [...] Insured Coverage Start Date Coverage End Date [facility] [address] [place] [phone] [id number] HANH COELHO Self - patient is the insured Medical (General) History Medical History History ICD Code HTN Denies CO,DM,CVA,renal disease Diverticulitis with surgery as below Hyperlipidemia BPH Neg colonoscopy with Dr. Nain taylor in 05/2012--previous polyps removed at the [facility] EGD's in [place] prior to the [facility] in 05/2013 and 11/2015 fercho wed only diverticulosis and renal cysts--he has also had negative abdominal ultrasound and MRIs ? [facility]---sees Dr. Gallagher-had phleb otomy--presently inactive Prostate cancer--finished XRT in 09/2015 Pleural effusion on the left -2014--saw Dr. Worthy at [facility]--had CT scans and a thoracentesis--no cancer--being [...]
--- OUTSIDE RECORDS SUMMARY | 2025-04-19 15:56 | XMS_ITS | Clinical Summary ---
Author Organization [facility] Address [address] [place] [address] Care Team Providers Care Mathematical Sciences Professor Name Role Phone Ricardo Ulloa MD Primary Care Provider [phone] Social History Tobacco Use Types Packs/Day Years Used Date Smoking Tobacco: Never Assessed Sex and Gender Information Value Date Recorded Sex Assigned at Not on file Legal Sex Male 12:24 PM EDT Gender Identity Not on file Sexual Orientation Not on file Plan of Treatment Health Maintenance Due Date Last Done Comments Advance Care Planning 1945 Hepatitis C Virus Screening 1945 DTaP/Tdap/Td Vaccines [...] [facility] FEDERAL FEE BASIS 16 F,ATTN:SAMANTA VALADEZ [address] Care Teams Mathematical Sciences Professor Relationship Specialty Start Date End Date Ricardo Ulloa MD [address] [address] PCP - General 02/21/20
== END 2025-04-19 15:04 | disposition home or self-care (01) ==
LOC: HO.HCS 13:47
PROVIDERS: PCP Internal Medicine; Visit Provider Internal Medicine
DX: I71.21 Aneurysm of the ascending aorta, without rupture (principal); I10 Essential (primary) hypertension
CPT/HCPCS: 93010; 99214

== ENCOUNTER → 2025-04-19 13:46 | Outpatient (BNVA) | payer OTHER, SELFPAY | PROVIDERS: PCP Internal Medicine; Visit Provider Internal Medicine | DX: I71.21 Aneurysm of the ascending aorta, without rupture (principal); I10 Essential (primary) hypertension | CPT/HCPCS: 93005 ==

== ENCOUNTER 2025-06-06 17:53 | Emergency (ER) | payer OTHER, SELFPAY ==
--- NOTE | ~2025-06-06 | XR_ITS ---
CLINICAL HISTORY: pain 2 view chest x-ray Comparison: None provided Findings: The lungs are clear. Heart size is normal. No acute fracture. IMPRESSION: 1. No acute findings. This document has been electronically signed by: June Stock MD on 06/06/2025 19:18:51
--- NOTE | ~2025-06-06 | CT_ITS ---
CLINICAL HISTORY: pain, disection study CT angiography chest, abdomen and pelvis with contrast. 3-D postprocessing. Comparison: CT/SR - CT ANGIO CHEST AORTA - 06/06/25 19:[address]/REG/ND/SR - CT ABDOMEN PELVIS W IV CON - 01/02/23 16:01 EDT Findings: Great vessels, thoracoabdominal aorta, mesenteric/renal arteries, and iliofemoral arteries are patent without aneurysm, dissection, hemodynamically significant stenoses, or occlusion. The visualized thyroid and mediastinum are unremarkable. The heart size is normal. The lungs are clear. Gallbladder is within normal limits. Right kidney midpole exophytic 4 cm cyst. No hydronephrosis. No renal stones. Remainder of the solid organs are within normal limits. No bowel obstruction, pneumoperitoneum, or pneumatosis. Descending and sigmoid colon diverticulitis without evidence of diverticulitis. Pelvic contents unremarkable. Normal appendix. The bones are intact. IMPRESSION: 1. No systemic arterial aneurysm or dissection. 2. No acute pulmonary embolus. 3. No acute disease within the chest, abdomen or pelvis. 4. 4 cm right kidney midpole cyst. This document has been electronically signed by: June Stock MD on 06/06/2025 20:49:59
--- NOTE | ~2025-06-06 | CT_ITS ---
CLINICAL HISTORY: thoracic aneurysm CT angiography chest with contrast. 3D Postprocessing. Comparison: CR - XR CHEST 2V - 06/06/25 18:57 EDT Findings: Great vessels, thoracoabdominal aorta, mesenteric/renal arteries, and iliofemoral arteries are patent without aneurysm, dissection, hemodynamically significant stenoses, or occlusion. The visualized thyroid and mediastinum are unremarkable. The heart size is normal. The lungs are clear. Gallbladder is within normal limits. Right kidney midpole exophytic 4 cm cyst. No hydronephrosis. No renal stones. Remainder of the solid organs are within normal limits. No bowel obstruction, pneumoperitoneum, or pneumatosis. Descending and sigmoid colon diverticulitis without evidence of diverticulitis. Pelvic contents unremarkable. Normal appendix. The bones are intact. IMPRESSION: 1. No systemic arterial aneurysm or dissection. 2. No acute pulmonary embolus. 3. No acute disease within the chest, abdomen or pelvis. 4. 4 cm right kidney midpole cyst. This document has been electronically signed by: June Stock MD on 06/06/2025 21:00:56
[2025-06-06 18:08] VITALS: BP 196/101; PULSE 67; RESP 20; TEMP 36.2; O2SAT 98; BMI 29.5
--- NOTE | 2025-06-06 18:09 | ED.GENADULT ---
HPI - General Adult General Chief complaint: Chest Pain Stated complaint: lwr back pain/aaa Time Seen by Provider: 06/06/25 18:35 History of Present Illness ED Provider: Jaguar Reddy MD HPI narrative: 79-year-old male with 3 days of nonexertional chest pain left side some radiation to the back. He does make us aware of a 4.1 cm thoracic aortic aneurysm that has been stable. No syncope no exertional pain denies dyspnea Related Data Home Medications ?Medication ?Instructions ?Recorded ?Confirmed multivitamin 1 tab PO DAILY 08/28/20 04/19/25 zolpidem 5 mg tablet (Ambien) 10 mg PO BEDTIME PRN rash 08/28/20 04/19/25 docusate sodium 100 mg capsule 100 mg PO BID PRN 09/18/23 04/19/25 (Colace) atorvastatin 40 mg tablet 20 mg PO BEDTIME 10/09/23 04/19/25 amlodipine 2.5 mg tablet 5 mg PO DAILY 02/15/25 04/19/25 Previous Rx's ?Medication ?Instructions ?Recorded cholecalciferol (vitamin D3) 50 2,000 unit PO DAILY 30 days #30 02/26/21 mcg (2,000 unit) capsule caps carvedilol 6.25 mg tablet (Coreg) 6.25 mg PO BID 90 days #180 tabs 03/02/24 testosterone 1 % (50 mg/5 gram) 1 packet transdermal DAILY 30 days 10/07/24 transdermal gel packet #150 grams Allergies Allergy/AdvReac Type Severity Reaction Status Date / Time sulfamethoxazole (From Allergy Mouth Verified 06/06/25 18:10 Bactrim) sores, Stomach pains trimethoprim (From Bactrim) Allergy Mouth Verified 06/06/25 18:10 sores, Stomach pains Sulfa (Sulfonamide AdvReac Intermediate MOUTH Verified 06/06/25 18:10 Antibiotics) SORES, RASH PMFSH Past Medical History Medical History HTN (hypertension) BPH (benign prostatic hyperplasia) Encounter to establish care Erectile dysfunction due to arterial insufficiency Fracture, thoracic vertebra, compression Lumbar degenerative disc disease Essential hypertension Ascending aortic aneurysm Annual physical exam Normal colonoscopy Prostate CA Allergic rhinitis Polycythemia Hyperlipidemia Hearing problem Insomnia Hypogonadism male Osteoporosis Surgical History Hx of transurethral resection of prostate Hx of cystoscopy History of esophagogastroduodenoscopy (EGD) Hx of appendectomy History of repair of hiatal hernia Hx of hernia repair History of colon resection Hx of nasal septoplasty Hx of colonoscopy Family History Family History Father Alzheimer disease Colon cancer Colon polyps Mother No problems noted. Other Mental health disorder Social History Social History Housing: House Alcohol intake: current Alcohol intake frequency: holidays/special occasions only Patient Tobacco Use Status: Former Tobacco user Smoked in Last 30 Days: No e-Cigarette/Vaping Use: Never Used Second Hand Smoke Exposure: No Use of substances other than those prescribed or required for medical reasons: No Advance Directives: Yes Advance Directives on File: Yes Advance Directives Date on File: 03/15/24 Do you have a plan to hurt others: No Plan service: Yes Current occupational status: employed and retired Current occupational exposures/hazards: No Cognitive needs: No Hearing needs: Yes Vision needs: No Physical Exam ED Exam Exam: EXAM: Gen: Alert, awake, well appearing, well hydrated. Head: Atraumatic Eyes: Anicteric, Normal conjunctiva. ENT: Moist mucosa, no pallor. ? Neck: Supple. Skin: ?No observable rash or bruising on exposed or examined skin Respiratory: Breathing comfortably, No distress.Clear to auscultation bilaterally, symmetric chest expansion, No wheeze, rales, ronchi. Cardiovascular: Regular rate and rhythm. No murmurs or rub. Well perfused periphery, warm extremities. No edema. ?Symmetric pulses. No pulsatile mass in the abdomen neurovascularly intact lower extremities without edema Abdominal: No focal tenderness. Soft, no objective distension. No palpable masses or obvious organomegaly. ?No guarding, no rebound tenderness or other peritoneal findings. : No flank tenderness. Neuro: Alert. Gross movement of all extremities intact. ? Psych: Calm. Cooperative. MSK: No grossly visible deformity. Vital signs: See flowsheet Vital Signs: Vital Signs - 24 hr 06/06/25 18:08 06/06/25 18:22 06/06/25 18:34 Temperature 97.1 F 97.9 F Pulse Rate 67 64 67 Respiratory Rate 20 18 18 Blood Pressure 196/101 H 169/92 H 162/85 H Pulse Oximetry 98 96 96 Oxygen Delivery Method Room Air Room Air Room Air 06/06/25 20:13 Temperature 97.6 F Pulse Rate 67 Respiratory Rate 15 Blood Pressure 155/71 H Pulse Oximetry 96 Oxygen Delivery Method Room Air BMI result Body Mass Index 29.5 Course Course Course Narrative: RME, this is a rapid medical exam performed by Lennox Magdaleno please refer to primary provider for complete H&P- 79-year-old male presents for evaluation of chest pain that radiates through to his back. He has a history of chronic back pain but this feels different. He is known to have a 4.1 cm ascending aortic aneurysm and follows Dr. Leigh. Plan for labs, EKG, cardiac workup as well as a dissection steady. The patient is notably hypertensive to 196/101 in triage. Medical Decision Making Medical Decision Making MDM Narrative: Medical Decision Makin-year-old male with known thoracic aortic aneurysm chest pain mostly in the left lower costal margin intermittent but sharp occasionally radiating to the back. Given the patient's history, hypertension on arrival to the ED CT angio of the chest and abdomen was ordered to exclude aortic dissection. I think this was reasonable given the patient's history age risk factors and known aneurysm. CTA does excludes there acid aortic dissection or any other acute intrathoracic or abdominal pathology. The patient's blood pressure even without pharmacologic intervention as come down. He is reassured by these findings. I find it unlikely the patient has ACS given the intermittent, nonexertional character of the pain. Was more likely this is musculoskeletal or GI. Patient will need close PCP follow up. May need provocative testing as an outpatient Preliminary Favored Differential Diagnosis: Musculoskeletal pain, aortic dissection, costochondritis, PUD or gastritis, unlikely angina/ACS, among additional considered etiologies Testing Interpreted Independently: ?ECG: Sinus rhythm rate 63 QTC 417. No acute ischemic changes. Similar appearance morphology to previous ECG on 05/27/2022 Radiology or Lab testing Results Reviewed: ?See below for details Consults: ?See below for details Independent Historians/External Chart Reviews: ?See below for details Social Determinants of Health Impacting MDM/Planning: ?See below for details Lab Data 06/06/25 18:32 06/06/25 18:32 Labs: Lab Results 06/06/25 06/06/25 Range/Units 18:32 20:44 WBC 6.3 (4.8-10.8) X10*3/uL RBC 5.01 (4.60-5.80) X10*6/uL Hgb 15.0 (14.0-18.0) g/dl Hct 43.8 (42.0-52.0) % MCV 87.4 (80.0-98.0) fL MCH 29.9 (27.0-33.0) pg MCHC 34.2 (31.0-36.0) g/dl RDW 12.7 (11.0-16.0) % Plt Count 195 (160-400) X10*3/uL MPV 9.6 (9.4-12.4) fL Immature Gran % (Auto) 0.3 (0.0-0.4) % Neut % (Auto) 60.0 (45-73) % Lymph % (Auto) 23.7 (20-40) % Weld % (Auto) 13.0 H (2-11) % Eos % (Auto) 2.5 (0-4) % Baso % (Auto) 0.5 (0-2) % Lymph # (Auto) 1.5 (1.2-4.9) X10*3/uL Weld # (Auto) 0.8 (0.1-1.2) X10*3/uL Eos # (Auto) 0.2 (0.0-0.4) X10*3/uL Baso # (Auto) 0.0 (0.0-0.2) X10*3/uL Abs Immat Gran (auto) 0.02 (0.00-0.03) X10*3/uL Absolute Neuts (auto) 3.8 (2.0-8.3) x10*3/uL Absolute Nucleated RBC 0.000 (0.0-0.012) X10*3/uL Nucleated RBC % (auto) 0.0 (0.0-0.2) /100WBC Sodium 140 (135-145) mmol/L Potassium 4.2 (3.3-5.1) mmol/L Chloride 109 H (96-108) mmol/L Carbon Dioxide 27 (22-29) mmol/L Anion Gap 8 L (12-20) BUN 12 (9-16) mg/dL Creatinine 0.65 (0.5-1.4) mg/dL Estim Creat Clear Calc 105.9 Estimated GFR > 60 Random Glucose 90 (60-115) mg/dL Calcium 9.8 (8.4-10.2) mg/dL Total Bilirubin 0.6 (0.0-1.0) mg/dL AST 32 (5-37) U/L ALT 39 (0-40) U/L Alkaline Phosphatase 75 (39-117) U/L Troponin I High Sens < 2.7 < 2.7 (<3.5-35.0) ng/L Total Protein 6.9 (6.5-8.0) g/dL Albumin 4.5 (3.5-5.0) g/dL Lipase 41 (8-78) U/L Discharge Plan Discharge Clinical Impression: Chest pain Patient Disposition: Home, Self-Care Instructions: Chest Pain (DC) Additional Instructions: DISCHARGE DIAGNOSES: Chest pain, unclear cause Uncontrolled high blood pressure HISTORY OF PRESENTATION: 3 days of chest pain EMERGENCY DEPARTMENT COURSE,TESTS, TREATMENTS: While in the ED today you had a CT of your chest and abdomen excluding any emergent abnormality. DISCHARGE MEDICATIONS: [We have made no changes to your regular medication regimen] FOLLOW-UP: Call your primary or general physician soon as possible to discuss your symptoms, your ED visit and to discuss follow up plans Call your granulizing machine operator for follow up INSTRUCTIONS & RETURN PRECAUTIONS: If any symptoms change first call your primary physician, if it is after-hours your primary doctors office should have a provider contact lens flashing puncher you can speak with. If the symptoms are severe or very concerning to you then call 911 or return to the ED. [07] Jaguar Reddy MD Emergency Physician [facility] Prescriptions: No Action amlodipine 2.5 mg tablet 5 mg PO DAILY atorvastatin 40 mg tablet 20 mg PO BEDTIME zolpidem [Ambien] 5 mg tablet 10 mg PO BEDTIME PRN (Reason: rash) multivitamin Tablet 1 tab PO DAILY cholecalciferol (vitamin D3) 50 mcg (2,000 unit) capsule 2,000 unit PO DAILY 30 Days Qty: 30 6RF docusate sodium [Colace] 100 mg capsule 100 mg PO BID PRN carvedilol [Coreg] 6.25 mg tablet 6.25 mg PO BID 90 Days Qty: 180 3RF Rx Instructions: must administer with a meal/food testosterone 1 % (50 mg/5 gram) gel in packet 1 packet transdermal DAILY 30 Days Qty: 150 5RF Rx Instructions: Apply to shoulder and rub in until dry Interventions: ED Discharge Assessment Last Done: 06/06/25 21:49 Discharge Date/Time: 06/06/25 21:54 Print Language: Persian
[2025-06-06 18:22] VITALS: BP 169/92; PULSE 64; RESP 18; TEMP 36.6; O2SAT 96
[2025-06-06 18:34] VITALS: BP 162/85; PULSE 67; RESP 18; O2SAT 96
--- NOTE | 2025-06-06 18:35 | PC.NURSE ---
Pt states that left sided CP is chronic but that quality has changed in the last 4 days. has intermittent sharp and deeper pain. no SOB. followed by [facility] and known AAA.
--- NOTE | 2025-06-06 18:37 | ECG_ITS ---
Test Reason : chest pain Blood Pressure : */* mmHG Vent. Rate : 63 BPM Atrial Rate : 63 BPM P-R Int : 170 ms QRS Dur : 88 ms QT Int : 408 ms P-R-T Axes : 79 -13 7 degrees QTcB Int : 417 ms Normal sinus rhythm Normal ECG When compared with ECG of 27-May-2022 23:19, No significant change was found Referred By: Jaguar Reddy Electronically Signed By: CHEKO VIDAL MD
[2025-06-06 18:42] LABS: MANUAL DIFF FLAG NO
[2025-06-06 19:00] LABS: Albumin Level 4.5 g/dL (3.5-5.0); Alkaline Phosphatase 75 U/L (39-117); Anion Gap 8 (12-20); Aspartate Amino Transferase 32 U/L (5-37); Blood Urea Nitrogen 12 mg/dL (9-16); Calcium 9.8 mg/dL (8.4-10.2); Carbon Dioxide 27 mmol/L (22-29); Chloride 109 mmol/L (96-108); Creatinine Clr Calc Pharmacy 105.9; Estimated Glomerular Filt Rate > 60; Lipase 41 U/L (8-78); Potassium 4.2 mmol/L (3.3-5.1); Sodium 140 mmol/L (135-145); Total Protein 6.9 g/dL (6.5-8.0)
[2025-06-06 19:05] LABS: Troponin-I High Sensitivity < 2.7 ng/L (<3.5-35.0)
[2025-06-06 19:06] LABS: Hematocrit 43.8 % (42.0-52.0); Hemoglobin 15.0 g/dl (14.0-18.0); Imm Gran Abs Auto 0.02 X10*3/uL (0.00-0.03); Imm Gran Pct Auto 0.3 % (0.0-0.4); Lymphocytes Absolute Auto 1.5 X10*3/uL (1.2-4.9); Mean Corpuscular HGB Conc 34.2 g/dl (31.0-36.0); Mean Corpuscular Hemoglobin 29.9 pg (27.0-33.0); Mean Corpuscular Volume 87.4 fL (80.0-98.0); NRBC Abs Auto 0.000 X10*3/uL (0.0-0.012); NRBC Pct Auto 0.0 /100WBC (0.0-0.2); Platelet Count 195 X10*3/uL (160-400); Red Blood Count 5.01 X10*6/uL (4.60-5.80); White Blood Count 6.3 X10*3/uL (4.8-10.8)
[2025-06-06 19:12] LABS: Alanine Aminotransferase 39 U/L (0-40)
[2025-06-06 20:13] VITALS: BP 155/71; PULSE 67; RESP 15; TEMP 36.4; O2SAT 96
[2025-06-06 21:20] LABS: Troponin-I High Sensitivity < 2.7 ng/L (<3.5-35.0)
[2025-06-06 21:25] VITALS: BP 152/77; PULSE 60; RESP 17; TEMP 36.4; O2SAT 96
--- OUTSIDE RECORDS SUMMARY | 2025-06-06 21:34 | XMS_ITS | Patient Health Record ---
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; Duration: 30 day(s) 01/08/2016 Active Vitamin D3 Active Multivitamin Active Testosterone Active Vitamin E Active Zolpidem Tartrate Ac tive Alendronate Sodium 70 MG Oral; Duration: 28 Not-Taking Atorvastatin Calcium 20 MG 1 tablet Orally Once a day Active Lisinopril 5 MG 1 ANS HALF tablet Orally Once a day Not-Taking Carvedilol 6.25 MG 1 tablet with food Orally Twice a day Active Labetalol HCl 200 MG 1 tablet Orally Twi ce a day Not-Taking Simvastatin 20 MG 1 tablet in the even ing Orally Once a day Not-Taking Calcium Citrate Not- Taking Immunizations Vaccine Route Administration Date Status Comme nts Influenza Unknown 05/18/2024 Administered Influenza Unknown 12/03/2021 Refused Problems Problem Type SNOMED Code ICD Code Onset Dates Problem Status W/U Status Risk Notes Problem Screening for malignant neoplasm of colon (007037841) Encounter for screening for malignant neoplasm of colon (Z12.11) Active confirmed Problem History of adenomatous polyp of colon (842422015) History of adenomatous polyp of colon (Z86.010) Active confirmed Problem Change in bowel habit (85466094) Change in bowel habits (R19.4) Active confirmed Problem Irritable bowel syndrome (84800224) Irritable bowel syndrome without diarrhea (K58.9) Active confirmed Problem Radiation proctitis (592626637) 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) Active confirmed Problem Hematuria (64545580) Hematuria, unspecified (R31.9) Active confirmed Problem Diverticular disease of colon (356571669) Diverticulosis (K57.90) Active confirmed Problem Preprocedural examination (572313860972165) Preprocedural examination (Z01.818) Active confirmed Problem History of polyp of colon (situation) (293544741) History of colon polyps (Z86.010) Active confirmed Problem Family History of Cancer of Colon (Situation) (255628014) Family history of colon cancer (Z80.0) Active confirmed Problem Altered bowel function (90900019) Change in bowel function (R19.4) Active confirmed Problem Chronic constipation (793220320) Constipation, chronic (K59.00) Active confirmed Problem Diarrhea (94424839) Diarrhea, unspecified type (R19.7) Active confirmed Problem Diverticulosis of colon (187451509) Diverticulosis of colon (K57.30) Active confirmed Problem Left lower quadrant pain (170715226) LLQ abdominal pain (R10.32) Active confirmed Vital Signs Temperature 97.7 degrees Fahrenheit 05/18/2025 Blood pressure diastolic 01 mm Hg 05/18/2025 Height 69.25 in 05/18/2025 Blood pressure systolic 001 mm Hg 05/18/2025 Weight 200.6 lbs 05/18/2025 BMI 29.41 kg/m2 05/18/2025 Encounters Encounter Location Date Provider Diagnosis [facility] [address] [place] [address] 05/18/2025 Renato Joseph Constipation, chroni c K59.00 ; Family history of colon cancer Z80.0 and Encounter for screening for malignant neoplasm of colon Z12.11 [facility] [address] [place] [address] 05/05/2025 Renato Joseph Hematuria, unspecifi ed R31.9 ; Change in bowel habits R19.4 and Radiation proctitis K62.7 Assessments Encounter Date Diagnosis (ICD Code) Assessment Notes Treatment Notes Treatment Clinical Notes Section Notes 05/18/2025 Constipation, chronic (ICD-10 - K59.00) Start using 2 Metamucil fiber pills once or twice a day with a lot of water to help with the constipation. Call me if problems Overall, Don appears quite well. He is not having any particularly new or worrisome GI complaints. In regard to his constipation this seems to be relatively mild and I have recommended that he begin using Metamucil supplemental fiber once or twice a day with plenty of fluids with that and throughout the day as well. I do not think he needs a follow-up colonoscopy in regard to this issue at this point given the negative exam 3 years ago and 2 previously negative colonoscopies prior to that as well. I do not think he would need any further screening colonoscopies going forward either given his previous colonoscopy findings and his age. In regard to the urethral bleeding I advised him that I do not think this is related to his GI tract. Based on his description of the cystoscopy findings it sounds like this is probably related to some bleeding coming from the prostate and possible effect of the radiation. I advised him that I do not think he has any component of radiation proctitis as he is not having any associated rectal urgency, diarrhea, rectal bleeding, or mucus with his bowel movements. I advised him that I do not think the straining during a bowel movement is causing the bleeding from the urethra. The straining may cause a release of some buildup of blood that is occurring near the prostate, but I do not think the actual straining with the bowel movement is actually making things bleed. Therefore, I advised him that he should follow-up with Dr. Ayers as needed in regard to the urethral bleeding. When he had called here with these questions recently I had scheduled him for a CT scan of the abdomen and pelvis as well as some blood work since I interpreted his phone call as being possibly related to some type of colovesical fistula. However in talking with him today I do not think that is the case at all. As such I shall cancel the CT scan and blood work. At this point if he continues to do well and is not having any particular GI problems he will see me on an as needed basis. I did advise him to certainly call if he has any problems or questions I can be of assistance with in the future. Frankie was very comfortable with this plan. Thank you again for allowing me to participate in Frankie's care. I shall continue to keep you advised of his progress as needed. Please do not hesitate to contact me if I can be of any further assistance in the future. 05/05/2025 Change in bowel habits (ICD-10 - R19.4) 05/05/2025 Hematuria, unspecified (ICD-10 - R31.9) 05/18/2025 Family history of colon cancer (ICD-10 - Z80.0) Overall, Frankie appears quite well. He is not having any particularly new or worrisome GI complaints. In regard to his constipation this seems to be relatively mild and I have recommended that he begin using Metamucil supplemental fiber once or twice a day with plenty of fluids with that and throughout the day as well. I do not think he needs a follow-up colonoscopy in regard to this issue at this point given the negative exam 3 years ago and 2 previously negative colonoscopies prior to that as well. I do not think he would need any further screening colonoscopies going forward either given his previous colonoscopy findings and his age. In regard to the urethral bleeding I advised him that I do not think this is related to his GI tract. Based on his description of the cystoscopy findings it sounds like this is probably related to some bleeding coming from the prostate and possible effect of the radiation. I advised him that I do not think he has any component of radiation proctitis as he is not having any associated rectal urgency, diarrhea, rectal bleeding, or mucus with his bowel movements. I advised him that I do not think the straining during a bowel movement is causing the bleeding from the urethra. The straining may cause a release of some buildup of blood that is occurring near the prostate, but I do not think the actual straining with the bowel movement is actually making things bleed. Therefore, I advised him that he should follow-up with Dr. Ayers as needed in regard to the urethral bleeding. When he had called here with these questions recently I had scheduled him for a CT scan of the abdomen and pelvis as well as some blood work since I interpreted his phone call as being possibly related to some type of colovesical fistula. However in talking with him today I do not think that is the case at all. As such I shall cancel the CT scan and blood work. At this point if he continues to do well and is not having any particular GI problems he will see me on an as needed basis. I did advise him to certainly call if he has any problems or questions I can be of assistance with in the future. Frankie was very comfortable with this plan. Thank you again for allowing me to participate in Frankie's care. I shall continue to keep you advised of his progress as needed. Please do not hesitate to contact me if I can be of any further assistance in the future. 05/05/2025 Radiation proctitis (ICD-10 - K62.7) 05/18/2025 Encounter for screening for malignant neoplasm of colon (ICD-10 - Z12.11) Overall, Frankie appears quite well. He is not having any particularly new or worrisome GI complaints. In regard to his constipation this seems to be relatively mild and I have recommended that he begin using Metamucil supplemental fiber once or twice a day with plenty of fluids with that and throughout the day as well. I do not think he needs a follow-up colonoscopy in regard to this issue at this point given the negative exam 3 years ago and 2 previously negative colonoscopies prior to that as well. I do not think he would need any further screening colonoscopies going forward either given his previous colonoscopy findings and his age. In regard to the urethral bleeding I advised him that I do not think this is related to his GI tract. Based on his description of the cystoscopy findings it sounds like this is probably related to some bleeding coming from the prostate and possible effect of the radiation. I advised him that I do not think he has any component of radiation proctitis as he is not having any associated rectal urgency, diarrhea, rectal bleeding, or mucus with his bowel movements. I advised him that I do not think the straining during a bowel movement is causing the bleeding from the urethra. The straining may cause a release of some buildup of blood that is occurring near the prostate, but I do not think the actual straining with the bowel movement is actually making things bleed. Therefore, I advised him that he should follow-up with Dr. Ayers as needed in regard to the urethral bleeding. When he had called here with these questions recently I had scheduled him for a CT scan of the abdomen and pelvis as well as some blood work since I interpreted his phone call as being possibly related to some type of colovesical fistula. However in talking with him today I do not think that is the case at all. As such I shall cancel the CT scan and blood work. At this point if he continues to do well and is not having any particular GI problems he will see me on an as needed basis. I did advise him to certainly call if he has any problems or questions I can be of assistance with in the future. Frankie was very comfortable with this plan. Thank you again for allowing me to participate in Frankie's care. I shall continue to keep you advised of his progress as needed. Please do not hesitate to contact me if I can be of any further assistance in the future. Plan Of Treatment Pending Test Test Name Order Date CHEM 7 PROFILE 05/05/2025 BUN 12/29/2022 LIVER PROFILE 12/29/2022 CRP 12/29/2022 CRP 05/05/2025 CBC w DIFF 12/29/2022 CBC w DIFF 05/05/2025 SED RATE (ESR) 05/05/2025 SED RATE (ESR) 12/29/2022 URINALYSIS + MICROSCOPIC 12/29/2022 CT ABD & PELVIS WITH CONTRAST 05/05/2025 CT ABD & PELVIS WITH CONTRAST 12/29/2022 STOOL WBC 04/30/2023 C DIFFICILE RFLX PCR 04/30/2023 Urinalysis and Microscopic 05/05/2025 Urine Culture 05/05/2025 Future Test Test Name Order Date COLONOSCOPY 01/08/2016 UPPER GI ENDOSCOPY 12/17/2016 COLONOSCOPY 12/03/2021 Insurance Providers Payer Name Payer Address Payer Phone Subscriber Number Group Number Insured Name Patient Relationship to Insured Coverage Start Date Coverage End Date [facility] [address] [facility] [place] [phone] [id number] HANH COELHO Self - patient is the insured Medical (General) History Medical History History ICD Code HTN Denies ID,DM,CVA,renal disease Diverticulitis with surgery as below Hyperlipidemia BPH Neg colonoscopy with Dr. Nain taylor in 05/2012- previous polyps removed at the [facility] EGD's in [place] prior to the [facility] CT in 05/2013 and 11/2015 fercho wed only diverticulosis and renal cysts- he has also had negative abdominal ultrasound and MRIs ? of [facility]- -sees Dr. Gallagher-had phleb otomy- presently inactive Prostate cancer- finished XRT in 09/2015 Pleural effusion on the left -2014- saw Dr. Worthy at [facility]- had CT scans and a thoracentesis- no cancer- being followed Negative colonoscopy in March of 2016 Kidney stones EGD in 2016 was normal except for minima l gastritis-bx neg for Hpylori Negative follow-up screening colonoscopy in 2021 Occasional bleeding from his urethra for which he saw Dr. Ayers and underwent a cystoscopy in 2024 with the finding of some radiation changes of blood vessels in the prostate according to the patient Surgical History Surgery Date(Month/Year) Penile prosthesis Laser prostate surgery for BPH with Dr. Neil III 07/27/2013 Sigmoid diverticulitis with lap. resecti on by Dr. Cartagena 2006 Appendectomy 1969' Hiatal hernia repair by Dr. Cartagena 2008
--- OUTSIDE RECORDS SUMMARY | 2025-06-06 21:34 | XMS_ITS | Clinical Summary ---
Author Organization [facility] Address [address] [place] [address] Care Team Providers Care Mailroom Coordinator Name Role Phone Ricardo Ulloa MD Primary Care Provider [phone] Social History Tobacco Use Types Packs/Day Years [...] Vaccine (1 of 2) 11/25/1997 RSV Vaccine 50 years and old er and Patients (1 - 1-dose 75+ series) 11/25/2022 Influenza Vaccine 03/17/2025 COVID-19 Vaccine ( - 2023-2 5 season) 2025 Hepatitis B Vaccines Aged Out No long er eligible based on patient's age to complete this topic Insurance [place] [employer] BASIS 16 F,ATTN:SAMANTA VALADEZ [id number] Care Teams Mailroom Coordinator Relationship Specialty Start Date End Date Ricardo Ulloa MD [address] [address] PCP - General 02/21/20
--- OUTSIDE RECORDS SUMMARY | 2025-06-06 21:34 | XMS_ITS | Clinical Summary ---
Author Organization [facility] Address [address] [facility] [address] [place] [phone] Phone Care Team Providers Care Regional Liaison Name Role Phone Cathleen Mataara LLUVIA Primary Care Provider [phone] Allergies Active Allergy Reactions Criticality Noted Date [...] VACCINE (1 - 1-dose 75+ series) 11/25/2022 INFLUENZA VACCINE (#1) 2025 2, 05/15/2020, 05/16/2019, Additional history exists Adult Td,Tdap Booster 03/23/2025 03/23/2015 COVID-19 VACCINE ( season) 2025 07/14/2021, 11/18/2020, 10/18/2020 PNEUMOCOCCAL VACCINES (50+ years) Completed 11/05/2016, 07/17/2014 ZOSTER VACCINES Completed 02/14/2019, 10/15, 11/05/2016 HEPATITIS A VACCINES Aged Out No [...] REPLACEMENT HEALTH [place] [employer] HMO REPLACEMENT Care Teams Regional Liaison Relationship Specialty Start Date End Date Christi Mata NP [address] [facility] [address] [place] [address] PCP - General 10/22/22 Additional Source Comments The information contained in this document represents components of the legal health record. It is not the complete legal health record.[facility]
[2025-06-06 21:49] VITALS: BP 152/77; PULSE 60; RESP 17; TEMP 36.4; O2SAT 96
== END 2025-06-06 21:54 | disposition home or self-care (01) ==
PROVIDERS: Physician Assistant; Emergency Provider Emergency Medicine; PCP Internal Medicine
DX: R07.89 Other chest pain (principal); M54.50 Low back pain, unspecified; Z79.899 Other long term (current) drug therapy; Z87.891 Personal history of nicotine dependence
CPT/HCPCS: 36415; 71046; 71275; 74175; 80053; 83690; 84484; 85025; 93005; 99284; 99285

== ENCOUNTER → 2025-06-06 18:11 | Outpatient (BNV) | payer OTHER, SELFPAY | PROVIDERS: Emergency Provider Emergency Medicine; PCP Internal Medicine; Visit Provider Student in an Organized Health Care Education/Training Program | DX: I71.20 Thoracic aortic aneurysm, without rupture, unspecified (principal); N28.1 Cyst of kidney, acquired; R07.9 Chest pain, unspecified | CPT/HCPCS: 71046; 71275; 74175 ==

== ENCOUNTER → 2025-06-06 18:37 | Outpatient (BNV) | payer OTHER, SELFPAY | PROVIDERS: Emergency Provider Emergency Medicine; PCP Internal Medicine; Visit Provider Internal Medicine Cardiovascular Disease | DX: R07.89 Other chest pain (principal) | CPT/HCPCS: 93010 ==

== ENCOUNTER 2025-06-20 14:03 | Outpatient (AMB) | payer MEDICARE, SELFPAY ==
--- NOTE | 2025-06-20 14:04 | MHC.OFFWIV ---
Intake Vital Signs 06/20/25 14:05 Height 5 ft 9 in Weight 201 lb BMI 29.7 BP 160/90 H Blood Pressure Location Lt brachial Position Sitting Pulse 84 Pulse Source Pulse Oximeter Temp 97.8 F Temp Source Oral Pulse Oximetry (%) 97 Oxygen Delivery Method Room Air Intake Visit Reasons: EP-body itching Intake Note: Patient presents with c/o generalized itching & flushing throughout body x3 weeks. Patient Tobacco Use Status: Former Tobacco user Allergies sulfamethoxazole (From Bactrim) Allergy (Verified 06/20/25 14:07) Mouth sores, Stomach pains trimethoprim (From Bactrim) Allergy (Verified 06/20/25 14:07) Mouth sores, Stomach pains Sulfa (Sulfonamide Antibiotics) Adverse Reaction (Intermediate, Verified 06/20/25 14:07) MOUTH SORES, RASH Do you need a note to return to daycare/school/sports/work: No HPI HPI Comments History of Present Illness Details History of Present Illness - The patient is a 79-year-old male presenting with generalized pruritus and essential hypertension. - Generalized pruritus began approximately two to three weeks ago, characterized by itching from head to toe, excluding the groin area. - The patient reports no rash, but scratching leads to scratch rebollar. - The patient was previously on carvedilol, which was stopped due to suspicion of causing the itching, but no improvement was noted after discontinuation. - The patient has a history of polycythemia, which was managed with phlebotomy, and has not recurred since treatment. - The patient is currently on testosterone therapy, which he suspects might contribute to the itching, although he has been on it for several years without prior issues. - Essential hypertension has been difficult to control, with recent blood pressure readings around 160/90 mmHg. - The patient was in the emergency department recently for elevated blood pressure and has an upcoming appointment for medication adjustment. - He has no new foods, lotions, soaps, detergents, clothes, pets, or travel. - He has no associated joint pain or fever. - He had labs done in the ER on 06/06 which were normal. Physical Exam General: Cooperative, healthy appearing, comfortable, no acute distress and well developed Orientation: Patient oriented x3 Limitations: No limitations Head: Normal to inspection Neck: Normal visual inspection and Yes full ROM Respiratory: Normal respiratory effort and able to speak in complete sentences. Clear to auscultation bilaterally. No w/r/r noted. Cardiovascular: Regular rate and rhythm. Normal S1 and S2. No m/r/g noted. Skin: no rashes noted, scratch rebollar present Neuro: Patient oriented x3 Extremities: Normal to inspection, no edema noted. Patient was informed and verbally consented to the use of an ambient scribe for clinic note documentation during this visit. [facility] Medical History HTN (hypertension) BPH (benign prostatic hyperplasia) Encounter to establish care Erectile dysfunction due to arterial insufficiency Fracture, thoracic vertebra, compression Lumbar degenerative disc disease Essential hypertension Ascending aortic aneurysm Annual physical exam Normal colonoscopy Prostate CA Allergic rhinitis Polycythemia Hyperlipidemia Hearing problem Insomnia Hypogonadism male Osteoporosis Surgical History Hx of transurethral resection of prostate Hx of cystoscopy History of esophagogastroduodenoscopy (EGD) Hx of appendectomy History of repair of hiatal hernia Hx of hernia repair History of colon resection Hx of nasal septoplasty Hx of colonoscopy Family History Father Alzheimer disease Colon cancer Colon polyps Mother No problems noted. Other Mental health disorder Social History Housing: House Alcohol intake: current Alcohol intake frequency: holidays/special occasions only Patient Tobacco Use Status: Former Tobacco user e-Cigarette/Vaping Use: Never Used Second Hand Smoke Exposure: No Advance Directives Date on File: 03/15/24 service: Yes Current occupational status: employed and retired Current occupational exposures/hazards: No Cognitive needs: No Hearing needs: Yes Vision needs: No Review of Systems Const All systems reviewed & are unremarkable except as noted in HPI and below Physical Exam Vital Signs: Last Vital Signs Temp 97.8 F 06/20/25 14:05 Pulse 84 06/20/25 14:05 BP 160/90 H 06/20/25 14:05 Pulse Ox 97 06/20/25 14:05 Oxygen Delivery Method Room Air 06/20/25 14:05 BMI result Body Mass Index 29.7 Assessment & Plan Assessment & Plan (1) Itching: Code(s): L29.9 - Pruritus, unspecified Plan Most likely allergic reaction vs dry skin vs electrolyte abnormality plan 1. itching - Prescribed prednisone for a few days to alleviate itching. - Loratadine was recommended as it provided some relief. - Pepcid was suggested for its antihistamine properties to help with itching. - Additional labs to check for vitamin deficiencies were ordered. 2. Essential Hypertension - Blood pressure management plan includes follow-up with primary care for medication adjustment. - Current blood pressure readings are around 160/90 mmHg. - continue with medications - low salt diet Orders: Orders Comprehensive Met. Panel Today L29.9 - Pruritus, unspecified Vitamin D 1,25 dihydroxy Today L29.9 - Pruritus, unspecified TSH reflex Free T4 Today L29.9 - Pruritus, unspecified Medications: New methylprednisolone PO PER PKG DIR for 6 days 21 ea 0RF famotidine (Pepcid) 20 mg PO DAILY 14 tabs 0RF Coding Level of Care Code Est Pt Level 4 (22736) Diagnoses Itching L29.9
[2025-06-20 14:05] VITALS: BP 160/90; PULSE 84; TEMP 36.6; O2SAT 97; BMI 29.7
--- OUTSIDE RECORDS SUMMARY | 2025-06-20 17:06 | XMS_ITS | Patient Health Record ---
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; Duration: 30 day(s) 01/08/2016 Active Vitamin [...] Problem Screening for malignant neoplasm of colon (363312068) Encounter for screening for malignant neoplasm of colon (Z12.11) Active confirmed Problem History of adenomatous polyp of colon (104956812) History of adenomatous polyp of colon (Z86.010) Active confirmed Problem Change in bowel habit (05319583) Change in bowel habits (R19.4) Active confirmed Problem Irritable bowel syndrome (55953319) Irritable bowel syndrome without diarrhea (K58.9) Active confirmed Problem Radiation proctitis (472385724) 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) Active confirmed Problem Hematuria (94963504) Hematuria, unspecified (R31.9) Active confirmed Problem Diverticular disease of colon (638937144) Diverticulosis (K57.90) Active confirmed Problem Preprocedural examination (780260955119243) Preprocedural examination (Z01.818) Active confirmed Problem History of polyp of colon (situation) (661733813) History of colon polyps (Z86.010) Active confirmed Problem Family History of Cancer of Colon (Situation) (906828206) Family history of colon cancer (Z80.0) Active confirmed Problem Altered bowel function (10853767) Change in bowel function (R19.4) Active confirmed Problem Chronic constipation (897411385) Constipation, chronic (K59.00) Active confirmed Problem Diarrhea (96696267) Diarrhea, unspecified type (R19.7) Active confirmed Problem Diverticulosis of colon (146160645) Diverticulosis of colon (K57.30) Active confirmed Problem Left lower quadrant pain (920911507) LLQ abdominal pain (R10.32) Active confirmed Vital Signs Temperature 97.7 degrees Fahrenheit 05/18/2025 Blood pressure diastolic 01 mm Hg 05/18/2025 Height 69.25 in 05/18/2025 Blood pressure systolic 001 mm Hg 05/18/2025 Weight 200.6 lbs 05/18/2025 BMI 29.41 kg/m2 05/18/2025 Encounters Encounter Location Date Provider Diagnosis [facility] [address] [place] [address] 05/18/2025 Renato Joseph Constipation, chroni c K59.00 ; Family history of colon cancer Z80.0 and Encounter for screening for malignant neoplasm of colon Z12.11 [facility] [address] [place] [address] 05/05/2025 Renato Joseph Hematuria, unspecifi ed R31.9 [...] 05/05/2025 BUN 12/29/2022 LIVER PROFILE 12/29/2022 CRP 05/05/2025 CRP 12/29/2022 CBC w DIFF 05/05/2025 CBC w DIFF 12/29/2022 SED RATE (ESR) 12/29/2022 SED RATE (ESR) 05/05/2025 URINALYSIS + MICROSCOPIC 12/29/2022 CT ABD & [...] Insured Coverage Start Date Coverage End Date [facility] [address] [facility] [place] [phone] [id number] HANH COELHO Self - patient is the insured Medical (General) History Medical History History ICD Code HTN Denies PA,DM,CVA,renal disease Diverticulitis with surgery as below Hyperlipidemia BPH Neg colonoscopy with Dr. Nain taylor in 05/2012- previous polyps removed at the [facility] EGD's in [place] prior to the kenia ibeth CT in 05/2013 and 11/2015 fercho wed only diverticulosis and renal cysts- he has also had negative abdominal ultrasound and MRIs ? of Jodie pang- -sees Dr. Gallagher-had phleb otomy- presently inactive Prostate cancer- finished XRT in 09/2015 Pleural effusion on the left -2014- saw Dr. Worthy at [facility]- had CT scans and a thoracentesis- no [...]
--- OUTSIDE RECORDS SUMMARY | 2025-06-20 17:06 | XMS_ITS | Clinical Summary ---
Author Organization [facility] Address [address] [place] [address] Care Team Providers Care Roller Stitcher Name Role Phone Ricardo Ulloa MD Primary Care Provider [phone] Social History Tobacco Use Types Packs/Day Years [...] [employer] [facility] F,ATTN:SAMANTA VALADEZ [id number] Care Teams Roller Stitcher Relationship Specialty Start Date End Date Ricardo Ulloa MD [address] [address] PCP - General 02/21/20
--- OUTSIDE RECORDS SUMMARY | 2025-06-20 17:06 | XMS_ITS | Clinical Summary ---
Author Organization [facility] Address [address] [facility] [address] [place] [address] Phone Care Team Providers Care Prune Washer Name Role Phone Christi Mata NP Primary Care Provider [phone] Allergies Active Allergy Reactions Criticality Noted Date [...] [place] [employer] Care Teams Prune Washer Relationship Specialty Start Date End Date Christi Mata NP [address] [place] [address] [address] [place] [address] PCP - General 10/22/22 Additional Source Comments The information contained in this document represents components of the legal health record. It is not the complete legal health record.[facility]
== END 2025-06-20 14:45 | disposition home or self-care (01) ==
PROVIDERS: PCP Internal Medicine; Visit Provider Physician Assistant Medical
DX: L29.9 Pruritus, unspecified (principal)

== ENCOUNTER 2025-06-20 14:03 | Outpatient (REF) | payer MEDICARE, SELFPAY ==
[2025-06-20 16:48] LABS: Alanine Aminotransferase 30 U/L (0-40); Albumin Level 4.7 g/dL (3.5-5.0); Alkaline Phosphatase 81 U/L (39-117); Anion Gap 11 (12-20); Aspartate Amino Transferase 34 U/L (5-37); Blood Urea Nitrogen 13 mg/dL (9-16); Calcium 9.6 mg/dL (8.4-10.2); Carbon Dioxide 25 mmol/L (22-29); Chloride 107 mmol/L (96-108); Estimated Glomerular Filt Rate > 60; Potassium 4.3 mmol/L (3.3-5.1); Sodium 139 mmol/L (135-145); Total Protein 7.5 g/dL (6.5-8.0)
[2025-06-25 16:39] LABS: VITAMIN D (1,25 OH) D3 70 pg/mL; Vit D (1,25-Dihydroxy) Total 70 pg/mL (18-72); Vitamin D (1,25 OH) D2 <8 pg/mL
== END 2025-06-20 14:04 | disposition home or self-care (01) ==
LOC: HO.HMGCLDS 14:03
PROVIDERS: PCP Internal Medicine; Visit Provider Physician Assistant Medical
DX: L29.9 Pruritus, unspecified (principal); I10 Essential (primary) hypertension; Z87.891 Personal history of nicotine dependence
CPT/HCPCS: 36415; 80053; 82652; 84443; 99212

== ENCOUNTER 2025-06-22 09:46 | Outpatient (AMB) | payer MEDICARE, SELFPAY ==
[2025-06-22 10:03] VITALS: BP 148/80; PULSE 70; RESP 17; TEMP 36.4; O2SAT 97; BMI 29.7
--- NOTE | 2025-06-22 10:03 | A.OFFPC_ITS ---
Vital Signs 06/22/25 10:03 Height 5 ft 9 in Weight 201 lb BMI 29.7 BP 148/80 H Blood Pressure Location Lt brachial Position Sitting Respiration 17 Pulse 70 Temp 97.5 F Temp Source Oral Pulse Oximetry (%) 97 Oxygen Delivery Method Room Air Intake Visit Reasons: f/u ER elevated b/p Intake Note: Pt is here today for his ER f/u elevated b/p Allergies sulfamethoxazole (From Bactrim) Allergy (Verified 06/28/25 03:51) Mouth sores, Stomach pains trimethoprim (From Bactrim) Allergy (Verified 06/28/25 03:51) Mouth sores, Stomach pains Sulfa (Sulfonamide Antibiotics) Adverse Reaction (Intermediate, Verified 06/28/25 03:51) MOUTH SORES, RASH Medication List - Last Reconciled 06/28/25 by Silke Jessica MD amlodipine 5 mg PO DAILY atorvastatin 20 mg PO BEDTIME cholecalciferol (vitamin D3) 2,000 units PO DAILY 30 days docusate sodium (Colace) 100 mg PO BID PRN famotidine (Pepcid) 20 mg PO DAILY methylprednisolone PO PER PKG DIR for 6 days multivitamin 1 tab PO DAILY testosterone 1 packet transdermal DAILY 30 days zolpidem (Ambien) 10 mg PO BEDTIME PRN Tobacco use date assessed: 06/22/25 Fall risk assessment: No Falls in past year Last assessed Fall Risk: 06/22/25 Dental Screening Dental Screen Date: 06/22/25 Did you have a dental visit in the last 12 months?: Yes Did you have a dental problem in the last 6 months where you did not have access to dental care?: Yes Was dental information given to patient?: Patient has dentist HPI f/u ER elevated b/p HPI Details The patient is a 79-year-old male presenting for management of multiple chronic conditions including sciatica, new-onset pruritus, and hypertension. The patient reports a history of sciatica that has been worsening over the years. He has previously received injections and underwent an operation for the condition, neither of which provided relief. He describes the issue as a pinched nerve and notes the pain is worse when sitting at home. The patient has a known history of an abdominal aortic aneurysm (AAA) that was diagnosed about 10 years ago and has been monitored with annual imaging. He states it has been stable at 4.[address] angiogram performed during an ER visit last May was negative for pulmonary embolism, arterial aneurysm, or dissection. An echocardiogram also showed a mild ascending aortic dilatation of 4.1 cm. For the past 4-5 days, the patient has experienced generalized pruritus and a rash on his upper leg. He was prescribed prednisone which helped a little bit and has had no new breakouts. He reports recent use of lotion after bathing. Regarding hypertension, the patient's blood pressure was recently elevated at 160/90 mmHg. He was switched from labetalol to carvedilol about 6-8 weeks ago and unilaterally discontinued the carvedilol about a week ago, suspecting it was the cause of his itching. A bone density scan in 2021 showed normal density except for some osteopenia in the left hip and left femur . Lab work from an ER visit on June 06 was unremarkable for infection, anemia, and showed normal electrolytes, kidney, liver, sugar, and thyroid function. He takes atorvastatin for cholesterol, which is monitored annually at the [facility] Medical History History of osteoporosis Osteopenia of left femoral neck BPH (benign prostatic hyperplasia) Fracture, thoracic vertebra, compression Lumbar degenerative disc disease Essential hypertension Ascending aortic aneurysm Normal colonoscopy Prostate CA Allergic rhinitis Polycythemia Hyperlipidemia Hearing problem Insomnia Hypogonadism male Surgical History Hx of transurethral resection of prostate Hx of cystoscopy History of esophagogastroduodenoscopy (EGD) Hx of appendectomy History of repair of hiatal hernia Hx of hernia repair History of colon resection Hx of nasal septoplasty Hx of colonoscopy Family History Father Alzheimer disease Colon cancer Colon polyps Mother No problems noted. Other Mental health disorder Social History Housing: House Alcohol intake: current Alcohol intake frequency: holidays/special occasions only Patient Tobacco Use Status: Former Tobacco user e-Cigarette/Vaping Use: Never Used Second Hand Smoke Exposure: No Advance Directives Date on File: 03/15/24 service: Yes Current occupational status: employed and retired Current occupational exposures/hazards: No Cognitive needs: No Hearing needs: Yes Vision needs: No Questionnaire PHQ-9 Over the last 2 weeks, how often have you been bothered by any of the following problems? 1. Little interest or pleasure in doing things: not at all 2. Feeling down, depressed, or hopeless: not at all 3. Trouble falling or staying asleep, or sleeping too much: not at all 4. Feeling tired or having little energy: not at all 5. Poor appetite or overeating: not at all 6. Feeling bad about yourself - or that you are a failure or have let yourself or your family down: not at all 7. Trouble concentrating on things, such as reading the newspaper or watching television: not at all 8. Moving or speaking so slowly that other people could have noticed. Or the opposite - being so fidgety or restless that you have been moving around a lot more than usual: not at all 9. Thoughts that you would be better off or of hurting yourself in some way: not at all Total score: 0 Depression Screening Interpretation: Negative Depression Screening Done: Yes 44597 - PHQ-9 Billing: Yes Source: Developed by Drs. Renato Galindo, Pia Verma, Matheus Patten and colleagues, with an educational nathalia from [employer]. Thrive Questionnaire Date Thrive assessed: 06/22/25 I am a: Patient What is your living situation today?: I have a steady place to live Within the past 12 months, did the food you bought not last and you didn't have the money to get more?: Never true Within the past 12 months, did you worry whether your food would run out before you got money to buy more?: Never true Do you have trouble paying for medicines?: No Do you have trouble getting transportation to medical appointments?: No Do you have trouble paying your heating and electricity bill?: No Do you have trouble taking care of your child, family member or friend?: No Do you have trouble with day-to-day activities such as bathing, preparing meals, shopping, managing finances, etc.?: No Are you currently unemployed and looking for a job?: No Are you interested in more education?: No THRIVE Score: 0 AUDIT C Alcohol Use Questionnaire (AUDIT-C) 1. How often do you have a drink containing alcohol?: Never Total Score: 0 ISI-7 AMB Questionnaire ISI-7 Date ISI - 7 assessed: 06/22/25 Feeling nervous, anxious, or on edge: 0 = Not at all Not being able to stop or control worryin = Not at all Worrying too much about different things: 0 = Not at all Trouble relaxin = Not at all Being so restless that it is hard to sit still: 0 = Not at all Becoming easily annoyed or irritable: 0 = Not at all Feeling afraid as if something awful might happen: 0 = Not at all Total ISI-7 score (0-4 normal; 5-9 mild; 10-14 moderate; 15-21 severe): 0 Source: Developed by Drs. Renato Galindo, Pia Verma, Matheus Patten and colleagues, with an educational nathalia from [employer]. ISI-7 Assessment Billing ISI-7 Assessment Tool: ISI-7 Assessment 64673 Review of Systems Const Reports no additional complaints Eyes Reports no additional complaints ENT Reports no additional complaints Card Denies chest pain, Denies pedal edema, Denies lightheadedness, Denies palpitations, Denies dyspnea and Denies orthopnea Resp Denies cough and Denies dyspnea GI Denies abdominal pain, Denies change in bowel habits, Denies change in stool character and Denies heartburn (Controlled on famotidine) Reports no additional complaints Musc Denies muscle cramps and Denies muscle weakness Neuro Reports no additional complaints Psych Reports no additional complaints Endo Denies palpitations Evans/Lymph Reports no additional complaints Aller/Immun Reports no additional complaints Physical exam (Primary Care) Vital Signs: Last Vital Signs Temp 97.5 F 06/22/25 10:03 Pulse 70 06/22/25 10:03 Resp 17 06/22/25 10:03 BP 148/80 H 06/22/25 10:03 Pulse Ox 97 06/22/25 10:03 Oxygen Delivery Method Room Air 06/22/25 10:03 BMI result Body Mass Index 29.7 Tobacco/Smoking Status: Tobacco use Status Tobacco use date assessed 06/22/25 06/22/25 10:12 Patient Tobacco Use Status Former Tobacco user 06/22/25 10:06 e-Cigarette/Vaping Use Never Used 06/22/25 10:06 PHQ-9: PHQ-9 Score PHQ-9: Total score 0 06/28/25 04:02 Depression Screening Interpretation: Negative Thrive Assessment: Date of Thrive Assessment Date Thrive assessed 06/22/25 06/28/25 04:02 Const General: no acute distress and alert Orientation/consciousness: patient oriented x3 Limitations: no limitations HENMT Ears: external ears normal General nose exam: Normal external nose present Mouth: Normal oral and palatal mucosa present and moist mucous membranes Eyes General: appearance normal, both eyes and all related structures Neck Neck: Yes full ROM, Yes no lymphadenopathy and Yes supple Resp Effort & Inspection: normal respiratory effort and able to speak in complete sentences Auscultation: clear to auscultation bilaterally Cardio Rate: regular rate Rhythm: regular rhythm Heart sounds: S1 normal heart sound present and S2 normal heart sound present GI Palpation (GI): Soft to palpation, nontender and no masses Auscultation: normal bowel sounds Back/Spine/Pelvis Back: No back tenderness Skin General skin exam: no rashes or lesions noted Neuro General: patient oriented x3, gait normal, moves all extremities, Normal light touch and pain sensation and no focal motor deficits Cognition (Neuro): normal cognition Extrem General: Yes full ROM, Yes no joint enlargement, Yes no clubbing, cyanosis or edema and Yes no calf tenderness Psych Appearance: grossly normal and well kempt Mental Status: mental status grossly normal Speech and movement: Normal speech and movement present Affect: normal affect Coding Level of Care Code Est Pt Level 4 (73518) Complex EM visit Add On G2211 Diagnoses Essential hypertension I10 Osteopenia M85.80 Hyperlipidemia, unspecified hyperlipidemia type E78.5 Hyperlipidemia type: unspecified Generalized pruritus L29.9 Vertebrogenic low back pain M54.51 Aneurysm of ascending aorta without rupture I71.21 Presence of rupture: without rupture Additional Codes ISI-7 Assessment Billing - ISI-7 Assessment Tool: ISI-7 Assessment 85492 ([id number]) PHQ-9 - 59852 - PHQ-9 Billing: Yes ([id number]) Assessment & Plan Assessment & Plan (1) Essential hypertension: Code(s): I10 - Essential (primary) hypertension Category: Medical Plan: The patient's blood pressure is still not at goal at 148/80 mmHg, likely due to non-adherence with his carvedilol. Control is critical given his history of an abdominal aortic aneurysm. The plan is to restart carvedilol and monitor blood pressure. The patient has a follow-up appointment with his disc jockey, Dr. Hernández, on July 19. (2) Osteopenia: Comment: DEXA 12/2021 (osteopenia) Code(s): M85.80 - Other specified disorders of bone density and structure, unspecified site Category: Medical Plan: Bone density scan ordered. Advised to continue taking vitamin-D 3 1000 units daily and calcium from dietary sources. Recommended to do regular weight- bearing exercise (3) Hyperlipidemia: Comment: Utilizing atorvastatin with good effect Code(s): E78.5 - Hyperlipidemia, unspecified Category: Medical Qualifiers: Hyperlipidemia type: unspecified Qualified Code(s): E78.5 - Hyperlipidemia, unspecified Plan: Fasting lipid panel and liver enzyme ordered. Continue with the atorvastatin 20 mg daily in addition to adherence to healthy eating habits and regular exercise. (4) Generalized pruritus: Code(s): L29.9 - Pruritus, unspecified Plan: The etiology of the patient's itching and rash is unclear, and he suspects it is related to carvedilol, though this is an uncommon side effect. Dry skin may be a contributing factor. Prednisone has offered minimal relief and carries a risk of elevating blood pressure. The plan is to discontinue prednisone and trial ajor-exl-fkvmwjk remedies, including regular use of moisturizers, Calamine lotion, and an antihistamine such as Zyrtec (cetirizine) at night or Claritin (loratadine) during the day. Benadryl is another option but should not be combined with other antihistamines. The patient will also restart carvedilol to assess if it is the causative agent. (5) Vertebrogenic low back pain: Code(s): M54.51 - Vertebrogenic low back pain Category: Medical Plan: The patient has chronic, worsening back pain that has not responded to prior injections or surgery. The pain is exacerbated by sitting. The plan is to recommend a trial of tqqm-ipg-idshuej lidocaine patches applied to the painful area for symptomatic relief. (6) Ascending aortic aneurysm: Code(s): I71.2 - Thoracic aortic aneurysm, without rupture Category: Medical Qualifiers: Presence of rupture: without rupture Qualified Code(s): I71.21 - Aneurysm of the ascending aorta, without rupture Plan: he patient has a stable AAA measuring 4.1 cm, which is monitored annually. A recent CT angiogram was reassuring. stressed strict blood pressure control and [facility]. Orders: Orders Alanine Aminotransferase Today E78.5 - Hyperlipidemia, unspecified XR DEXA axial skeleton 06/22/25 M85.80 - Other specified disorders of bone density and structure, unspecified site, S22.000A - Wedge compression fracture of unspecified thoracic vertebra, initial encounter for closed fracture Lipid Panel Today E78.5 - Hyperlipidemia, unspecified Aspartate Amino Transferase Today E78.5 - Hyperlipidemia, unspecified
--- OUTSIDE RECORDS SUMMARY | 2025-06-22 11:03 | XMS_ITS | Clinical Summary ---
Author Organization [facility] Address [address] [place] [address] Care Team Providers Care Mobile Sales Consultant Name Role Phone Ricardo Ulloa MD Primary Care Provider [phone] Social History Tobacco Use Types Packs/Day Years [...] [employer] F,ATTN:SAMANTA VALADEZ [id number] Care Teams Mobile Sales Consultant Relationship Specialty Start Date End Date Ricardo Ulloa MD [address] [address] PCP - General 02/21/20
--- OUTSIDE RECORDS SUMMARY | 2025-06-22 11:03 | XMS_ITS | Clinical Summary ---
Author Organization [facility] Address [address] [facility] [address] [place] [address] Phone Care Team Providers Care Examiner Of Currency Name Role Phone Christi Mata NP Primary Care Provider [phone] Allergies Active Allergy Reactions Criticality Noted Date [...] [place] [employer]ACEMENT Care Teams Examiner Of Currency Relationship Specialty Start Date End Date Christi Mata NP [address] [place] [address] [address] [place] [address] PCP - General 10/22/22 Additional Source Comments The information contained in this document represents components of the legal health record. It is not the complete legal health record.[facility]
--- OUTSIDE RECORDS SUMMARY | 2025-06-22 11:03 | XMS_ITS | Patient Health Record ---
Author Organization [facility] Address [address] [place] [address] Care Team Providers Care Prescriptionist Name Role Phone Aracely LAKHANI, Silke Primary Care Provider Renato Patel Unavailable [phone] Allergies Allergen (clinical drug ingredient) Drug/Non Drug [...] y Four times a day prn abdominal bloating/discomfort/leather scraper mps; Duration: 30 day(s) 01/08/2016 Active Vitamin [...] Problem Screening for malignant neoplasm of colon (016225812) Encounter for screening for malignant neoplasm of colon (Z12.11) Active confirmed Problem History of adenomatous polyp of colon (192840329) History of adenomatous polyp of colon (Z86.010) Active confirmed Problem Change in bowel habit (05246116) Change in bowel habits (R19.4) Active confirmed Problem Irritable bowel syndrome (79765167) Irritable bowel syndrome without diarrhea (K58.9) Active confirmed Problem Radiation proctitis (947995825) 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) Active confirmed Problem Hematuria (81781034) Hematuria, unspecified (R31.9) Active confirmed Problem Diverticular disease of colon (355442126) Diverticulosis (K57.90) Active confirmed Problem Preprocedural examination (299294712598867) Preprocedural examination (Z01.818) Active confirmed Problem History of polyp of colon (situation) (290212366) History of colon polyps (Z86.010) Active confirmed Problem Family History of Cancer of Colon (Situation) (023211426) Family history of colon cancer (Z80.0) Active confirmed Problem Altered bowel function (13784167) Change in bowel function (R19.4) Active confirmed Problem Chronic constipation (449533890) Constipation, chronic (K59.00) Active confirmed Problem Diarrhea (38520925) Diarrhea, unspecified type (R19.7) Active confirmed Problem Diverticulosis of colon (719898636) Diverticulosis of colon (K57.30) Active confirmed Problem Left lower quadrant pain (243196080) LLQ abdominal pain (R10.32) Active confirmed Vital Signs Temperature 97.7 degrees Fahrenheit 05/18/2025 Blood pressure diastolic 01 mm Hg 05/18/2025 Height 69.25 in 05/18/2025 Blood pressure systolic 001 mm Hg 05/18/2025 Weight 200.6 lbs 05/18/2025 BMI 29.41 kg/m2 05/18/2025 Encounters Encounter Location Date Provider Diagnosis [facility] [address] [place] [address] 05/18/2025 Renato Joseph Constipation, chroni c K59.00 ; Family history of colon cancer Z80.0 and Encounter for screening for malignant neoplasm of colon Z12.11 [facility] [address] [place] [address] 05/05/2025 Renato Joseph Hematuria, unspecifi ed R31.9 [...] Insured Coverage Start Date Coverage End Date [facility] [address] [facility] [place] [phone] [id number] HANH COELHO Self - patient is the insured Medical (General) History Medical History History ICD Code HTN Denies AL,DM,CVA,renal disease Diverticulitis with surgery as below Hyperlipidemia BPH Neg colonoscopy with Dr. Nain taylor in 05/2012- previous polyps removed at the [facility] EGD's in [place] prior to the kenia ibeth CT in 05/2013 and 11/2015 fercho wed only diverticulosis and renal cysts- he has also had negative abdominal ultrasound and MRIs ? of Jodie pang- -sees Dr. Gallagher-had phleb otomy- presently inactive Prostate cancer- finished XRT in 09/2015 Pleural effusion on the left -2014- saw Dr. Worthy at [facility]- had CT scans and a thoracentesis- no [...]
== END 2025-06-22 11:08 | disposition home or self-care (01) ==
LOC: HO.HMCC 09:46
PROVIDERS: PCP Internal Medicine; Visit Provider Internal Medicine
DX: I10 Essential (primary) hypertension (principal); M85.80 Other specified disorders of bone density and structure, unspecified site; E78.5 Hyperlipidemia, unspecified; L29.9 Pruritus, unspecified; M54.51 Vertebrogenic low back pain; I71.21 Aneurysm of the ascending aorta, without rupture

== ENCOUNTER → 2025-06-22 09:46 | Outpatient (BNVA) | payer MEDICARE, SELFPAY | PROVIDERS: PCP Internal Medicine; Visit Provider Internal Medicine | DX: I10 Essential (primary) hypertension (principal); E78.5 Hyperlipidemia, unspecified; L29.9 Pruritus, unspecified; M54.30 Sciatica, unspecified side; R21 Rash and other nonspecific skin eruption; M85.852 Other specified disorders of bone density and structure, left thigh; M54.51 Vertebrogenic low back pain; I71.21 Aneurysm of the ascending aorta, without rupture | CPT/HCPCS: 96127; 99212 ==

== ENCOUNTER 2025-07-17 13:45 | Outpatient (AMB) | payer MEDICARE, SELFPAY ==
--- NOTE | 2025-07-17 13:52 | A.OFFPC_ITS ---
Vital Signs 07/17/25 13:55 Height 5 ft 9 in Weight 202 lb BMI 29.8 BP 140/60 H Blood Pressure Location Lt brachial Position Sitting Respiration 16 Pulse 74 Pulse Source Pulse Oximeter Temp 97.9 F Temp Source Oral Pulse Oximetry (%) 96 Oxygen Delivery Method Room Air Intake Visit Reasons: generalized body itching Intake Note: Pt is here today for a walkin f/u for body itching: no improvement Medical Delivery Driver Required: No Allergies sulfamethoxazole (From Bactrim) Allergy (Verified 07/17/25 14:16) Mouth sores, Stomach pains trimethoprim (From Bactrim) Allergy (Verified 07/17/25 14:16) Mouth sores, Stomach pains Sulfa (Sulfonamide Antibiotics) Adverse Reaction (Intermediate, Verified 07/17/25 14:16) MOUTH SORES, RASH Medication List - Last Reconciled 07/17/25 by Silke Jessica MD amlodipine 5 mg PO DAILY atorvastatin 20 mg PO BEDTIME carvedilol 12.5 mg PO ONCE cholecalciferol (vitamin D3) 2,000 units PO DAILY 30 days docusate sodium (Colace) 100 mg PO BID PRN famotidine (Pepcid) 20 mg PO DAILY hydrochlorothiazide 12.5 mg PO DAILY hydroxyzine HCl 10 mg PO BEDTIME PRN multivitamin 1 tab PO DAILY testosterone 1 packet transdermal DAILY 30 days zolpidem (Ambien) 10 mg PO BEDTIME PRN Tobacco use date assessed: 07/17/25 Fall risk assessment: No Falls in past year Dental Screening Dental Screen Date: 07/17/25 Did you have a dental visit in the last 12 months?: Yes Did you have a dental problem in the last 6 months where you did not have access to dental care?: No Was dental information given to patient?: Patient has dentist HPI generalized body itching HPI Details The patient is a 79 year old individual presenting with generalized itching and a papular rash. The symptoms began approximately one month ago around the time of an emergency room visit. The rash initially started on the stomach and sides and has also appeared on the legs. The patient describes the lesions as looking like flea or mosquito bites, but is the only person in the household affected, despite having a dog that is medicated for fleas. The patient denies any recent travel history. For treatment, the patient has tried hydroxyzine, which was effective but short- acting and caused significant fatigue. A prior course of methylprednisolone did not provide relief. The patient has also tried loratadine and cetirizine, and is currently taking loratadine once daily. The patient has a history of poorly controlled hypertension, with recent readings around 150/85-90 mmHg. To investigate if medications were causing the rash, the patient recently stopped taking carvedilol and hydrochlorothiazide (HCTZ) for a few weeks but has restarted both within the last few days. The patient has been taking amlodipine, atorvastatin, and testosterone for a long time without issue. The patient has a known allergy to sulfa drugs, specifically Bactrim. A history of pheochromocytoma was noted in the chart, but the patient denies being aware of this diagnosis, and a review of the CAT scan shows no adrenal abnormalities. [facility] Medical History Generalized pruritus History of osteoporosis Osteopenia of left femoral neck BPH (benign prostatic hyperplasia) Fracture, thoracic vertebra, compression Lumbar degenerative disc disease Essential hypertension Ascending aortic aneurysm Normal colonoscopy Prostate CA Allergic rhinitis Polycythemia Hyperlipidemia Hearing problem Insomnia Hypogonadism male Surgical History Hx of transurethral resection of prostate Hx of cystoscopy History of esophagogastroduodenoscopy (EGD) Hx of appendectomy History of repair of hiatal hernia Hx of hernia repair History of colon resection Hx of nasal septoplasty Hx of colonoscopy Family History Father Alzheimer disease Colon cancer Colon polyps Mother No problems noted. Other Mental health disorder Social History Housing: House Alcohol intake: current Alcohol intake frequency: holidays/special occasions only Patient Tobacco Use Status: Former Tobacco user e-Cigarette/Vaping Use: Never Used Second Hand Smoke Exposure: No Advance Directives Date on File: 03/15/24 service: Yes Current occupational status: employed and retired Current occupational exposures/hazards: No Cognitive needs: No Hearing needs: Yes Vision needs: No Questionnaire PHQ-9 Over the last 2 weeks, how often have you been bothered by any of the following problems? Depression Screening Interpretation: Negative Depression Screening Done: Yes Source: Developed by Drs. Renato Galindo, Pia Verma, Matheus Patten and colleagues, with an educational nathalia from [employer]. Thrive Questionnaire Date Thrive assessed: 06/22/25 ISI-7 AMB Questionnaire ISI-7 Date ISI - 7 assessed: 06/22/25 Source: Developed by Drs. Renato Galindo, Pia Verma, Matheus Patten and colleagues, with an educational nathalia from [employer]. Review of Systems Const All systems reviewed & are unremarkable except as noted in HPI and below Physical exam (Primary Care) Vital Signs: Last Vital Signs Temp 97.9 F 07/17/25 13:55 Pulse 74 07/17/25 13:55 Resp 16 07/17/25 13:55 BP 140/60 H 07/17/25 13:55 Pulse Ox 96 07/17/25 13:55 Oxygen Delivery Method Room Air 07/17/25 13:55 BMI result Body Mass Index 29.8 Tobacco/Smoking Status: Tobacco use Status Tobacco use date assessed 07/17/25 07/17/25 14:02 Patient Tobacco Use Status Former Tobacco user 07/17/25 13:53 e-Cigarette/Vaping Use Never Used 07/17/25 13:53 Depression Screening Interpretation: Negative Thrive Assessment: Date of Thrive Assessment Date Thrive assessed 06/22/25 07/17/25 13:53 Const General: no acute distress and alert Orientation/consciousness: patient oriented x3 HENMT Ears: external ears normal General nose exam: Normal external nose present Mouth: moist mucous membranes Eyes General: appearance normal, both eyes and all related structures Neck Neck: Yes full ROM, Yes no lymphadenopathy and Yes supple Resp Effort & Inspection: normal respiratory effort and able to speak in complete sentences Auscultation: clear to auscultation bilaterally Cardio Rate: regular rate Rhythm: regular rhythm Heart sounds: S1 normal heart sound present and S2 normal heart sound present GI Palpation (GI): Soft to palpation, nontender and no masses Auscultation: normal bowel sounds Skin Other: Erythematous papular rash refuses scattered on lower back and abdomen Neuro General: patient oriented x3, gait normal, moves all extremities, Normal light touch and pain sensation and no focal motor deficits Cognition (Neuro): normal cognition Extrem General: Yes full ROM, Yes no joint enlargement, Yes no clubbing, cyanosis or edema and Yes no calf tenderness Psych Appearance: grossly normal and well kempt Mental Status: mental status grossly normal Speech and movement: Normal speech and movement present Affect: normal affect Coding Level of Care Code Est Pt Level 4 (27526) Diagnoses Pruritic erythematous rash L29.89 Essential hypertension I10 Assessment & Plan Assessment & Plan (1) Pruritic erythematous rash: Code(s): L29.89 - Other pruritus Plan: Prescription sent for prednisone tapering dose to take as directed, always take with a meal in the morning. Advised to follow-up if no improvement (2) Essential hypertension: Code(s): I10 - Essential (primary) hypertension Category: Medical Plan: A history of pheochromocytoma was noted in the chart, but the patient denies being aware of this diagnosis, and a review of the CAT scan shows no adrenal abnormalities. Ordered plasma metanephrines and CBC Orders: Orders Metanephrines, Plasma 07/18/25 L29.9 - Pruritus, unspecified Complete Blood Count Auto Diff 07/18/25 L29.9 - Pruritus, unspecified Medications: New prednisone Take 4 tablets or 40 mg on days 1 to 2, 30 mg or 3 tablets on days 3 and 4, 20 mg or 2 tablets on days 5 and 6, , and 10 mg or 1 tablet on days 7 and 8 Take it in the morning with a meal 10 mg PO DIRECTED 20 tabs 0RF
[2025-07-17 13:55] VITALS: BP 140/60; PULSE 74; RESP 16; TEMP 36.6; O2SAT 96; BMI 29.8
--- OUTSIDE RECORDS SUMMARY | 2025-07-17 17:16 | XMS_ITS | Clinical Summary ---
Author Organization [facility] Address [address] [facility] [address] [place] [id number] Phone Care Team Providers Care Piercer Operator Name Role Phone Christi Mata NP Primary Care Provider [phone] Allergies Active Allergy Reactions Criticality Noted Date [...] [employer] Care Teams Piercer Operator Relationship Specialty Start Date End Date Christi Mata NP [address] [place] [address] [address] [place] [address] PCP - General 10/22/22 Additional Source Comments The information contained in this document represents components of the legal health record. It is not the complete legal health record.[facility]
== END 2025-07-17 14:29 | disposition home or self-care (01) ==
LOC: HO.HMCC 13:46
PROVIDERS: PCP Internal Medicine; Visit Provider Internal Medicine
DX: L29.89 Other pruritus (principal); I10 Essential (primary) hypertension

== ENCOUNTER → 2025-07-17 13:45 | Outpatient (BNVA) | payer MEDICARE, SELFPAY | PROVIDERS: PCP Internal Medicine; Visit Provider Internal Medicine | DX: I10 Essential (primary) hypertension (principal); L29.9 Pruritus, unspecified; R21 Rash and other nonspecific skin eruption | CPT/HCPCS: 99212 ==

== ENCOUNTER 2025-07-18 09:25 | Outpatient (REF) | payer MEDICARE, SELFPAY ==
[2025-07-18 09:39] LABS: MANUAL DIFF FLAG NO
--- OUTSIDE RECORDS SUMMARY | 2025-07-18 10:08 | XMS_ITS | Clinical Summary ---
Author Organization [facility] Address [address] [facility] [address] [place] [address] Phone Care Team Providers Care Tunneling Machine Operator Name Role Phone Christi Mata NP Primary Care Provider [phone] Allergies Active Allergy Reactions Criticality Noted Date [...] [employer] [place] Care Teams Tunneling Machine Operator Relationship Specialty Start Date End Date Christi Mata NP [address] [place] [address] [address] [place] [address] PCP - General 10/22/22 Additional Source Comments The information contained in this document represents components of the legal health record. It is not the complete legal health record.[facility]
[2025-07-18 10:24] LABS: Hematocrit 44.3 % (42.0-52.0); Hemoglobin 14.7 g/dl (14.0-18.0); Imm Gran Abs Auto 0.02 X10*3/uL (0.00-0.03); Imm Gran Pct Auto 0.5 % (0.0-0.4); Lymphocytes Absolute Auto 1.1 X10*3/uL (1.2-4.9); Mean Corpuscular HGB Conc 33.2 g/dl (31.0-36.0); Mean Corpuscular Hemoglobin 30.0 pg (27.0-33.0); Mean Corpuscular Volume 90.4 fL (80.0-98.0); NRBC Abs Auto 0.000 X10*3/uL (0.0-0.012); NRBC Pct Auto 0.0 /100WBC (0.0-0.2); Platelet Count 206 X10*3/uL (160-400); Red Blood Count 4.90 X10*6/uL (4.60-5.80); White Blood Count 4.3 X10*3/uL (4.8-10.8)
[2025-07-18 10:53] LABS: Alanine Aminotransferase 38 U/L (0-40); Aspartate Amino Transferase 39 U/L (5-37); Cholesterol 163 mg/dL (<200); HDL Cholesterol 42 mg/dL (>40); Triglycerides 117 mg/dL (<150)
[2025-07-23 09:27] LABS: Metanephrine, Free 33 pg/mL (<=57); Normetanephrines, Free 87 pg/mL (<=148); Total Metanephrine, Free 120 pg/mL (<=205)
== END 2025-07-18 09:26 | disposition home or self-care (01) ==
LOC: HO.LAB 09:25
PROVIDERS: PCP Internal Medicine; Visit Provider Internal Medicine
DX: E78.5 Hyperlipidemia, unspecified (principal); L29.9 Pruritus, unspecified
CPT/HCPCS: 36415; 80061; 83835; 84450; 84460; 85025

== ENCOUNTER 2025-07-19 13:22 | Outpatient (AMB) | payer OTHER, SELFPAY ==
[2025-07-19 13:28] VITALS: BP 130/92; PULSE 71; BMI 29.6
--- NOTE | 2025-07-19 13:28 | MHC.OFFVIS ---
Vital Signs 07/19/25 13:28 Height 5 ft 9 in Weight 200 lb 9.93 oz BMI 29.6 BP 130/92 H Blood Pressure Location Lt brachial Position Sitting Pulse 71 Intake Visit Reasons: F/u hypertension Intake Note: Follow-up bp has been up was in the ED a few months ago bp was high but has chronic pain [employer] Man Required: No Allergies sulfamethoxazole (From Bactrim) Allergy (Verified 07/17/25 14:16) Mouth sores, Stomach pains trimethoprim (From Bactrim) Allergy (Verified 07/17/25 14:16) Mouth sores, Stomach pains Sulfa (Sulfonamide Antibiotics) Adverse Reaction (Intermediate, Verified 07/17/25 14:16) MOUTH SORES, RASH Medication List - Last Reconciled 07/19/25 by Jeison Reyes NP amlodipine 5 mg PO DAILY atorvastatin 20 mg PO BEDTIME carvedilol 12.5 mg PO ONCE cholecalciferol (vitamin D3) 2,000 units PO DAILY 30 days docusate sodium (Colace) 100 mg PO BID PRN famotidine (Pepcid) 20 mg PO DAILY hydrochlorothiazide 12.5 mg PO DAILY hydroxyzine HCl 10 mg PO BEDTIME PRN multivitamin 1 tab PO DAILY prednisone 10 mg PO DIRECTED testosterone 1 packet transdermal DAILY 30 days zolpidem (Ambien) 10 mg PO BEDTIME PRN HPI Comments Details: This is a 79-year-old male patient coming in for a ER discharge follow-up visit. Patient states that he was in the hospital for body aches during which time it was noted that patient has blood pressure was elevated. Patient states that he stopped his amlodipine due to swelling in his ankles and was recently put back on 5 mg amlodipine. Patient was also recently started on hydrochlorothiazide for blood pressure management. Patient states that his blood pressures at home has been elevated in the 140s to 150s systolic. Patient is also reporting a chin all over his body for which patient is getting worked up with primary care. Patient is otherwise denying any cardiac symptoms of exertional chest pain, shortness of breath, palpitations, dizziness, orthopnea, PND, leg edema, presyncope or syncope. Patient is reporting compliance with all his medications. [facility] Medical History Generalized pruritus History of osteoporosis Osteopenia of left femoral neck BPH (benign prostatic hyperplasia) Fracture, thoracic vertebra, compression Lumbar degenerative disc disease Essential hypertension Ascending aortic aneurysm Normal colonoscopy Prostate CA Allergic rhinitis Polycythemia Hyperlipidemia Hearing problem Insomnia Hypogonadism male Surgical History Hx of transurethral resection of prostate Hx of cystoscopy History of esophagogastroduodenoscopy (EGD) Hx of appendectomy History of repair of hiatal hernia Hx of hernia repair History of colon resection Hx of nasal septoplasty Hx of colonoscopy Family History Father Alzheimer disease Colon cancer Colon polyps Mother No problems noted. Other Mental health disorder Social History Housing: House Alcohol intake: current Alcohol intake frequency: holidays/special occasions only Patient Tobacco Use Status: Former Tobacco user e-Cigarette/Vaping Use: Never Used Second Hand Smoke Exposure: No Advance Directives Date on File: 03/15/24 service: Yes Current occupational status: employed and retired Current occupational exposures/hazards: No Cognitive needs: No Hearing needs: Yes Vision needs: No Review of Systems Const Denies chills, Denies fatigue, Denies fever(s), Denies frequent falls, Denies weakness, Denies weight gain and Denies weight loss ENT Denies dizziness Card Denies chest pain, Denies leg edema, Denies lightheadedness, Denies palpitations, Denies dyspnea, Denies dyspnea on exertion, Denies orthopnea and Denies other (loss of consciousness) Resp Denies cough, Denies dyspnea and Denies dyspnea on exertion GI Denies hematochezia and Denies change in stool character Musc Denies abnormal gait, Denies muscle weakness, Denies numbness, Denies radiating pain into limb and Denies tingling Neuro Denies abnormal gait, Denies dizziness, Denies frequent falls, Denies numbness, Denies tingling and Denies weakness Endo Denies fatigue and Denies palpitations Physical Exam Vital Signs: Last Vital Signs Pulse 71 07/19/25 13:28 BP 122/78 07/19/25 13:28 BMI result Body Mass Index 29.6 Const General: cooperative, healthy appearing, comfortable and no acute distress Orientation/consciousness: patient oriented x3 HEENT Head: Yes normal to inspection Neck Neck: Yes normal visual inspection, Yes trachea midline and Yes supple Chest Chest palpation & inspection: normal inspection of the chest Resp Effort & Inspection: normal respiratory effort Auscultation: clear to auscultation bilaterally, no crackles, no rales, no rhonchi and no wheezes Cardio Jugular venous distension: no JVD Palpation: normal PMI Rate: regular rate Rhythm: regular rhythm Heart sounds: S1 normal heart sound present, S2 normal heart sound present, no click, no gallops, no murmurs and no rubs Peripheral pulses: Peripheral pulses 2+ throughout GI Inspection: Yes normal to inspection Palpation (GI): Soft to palpation Auscultation: normal bowel sounds Skin General skin exam: no rashes or lesions noted Neuro General: patient oriented x3 Extrem General: Yes normal to inspection, No no pedal edema and No calf tenderness Psych Appearance: grossly normal Mental Status: mental status grossly normal Speech and movement: Normal speech and movement present Assessment & Plan Assessment & Plan (1) Essential hypertension: Code(s): I10 - Essential (primary) hypertension Category: Medical Plan: Blood pressure today is elevated. Patient states that he was previously on 5 mg of amlodipine after which patient started having ankle swelling and therefore stopped taking them. Given his blood pressures were elevated again, patient was put back on 2.5 mg of amlodipine by his PCP and was started on hydrochlorothiazide. Today, patient is reporting intermittent mild ankle swelling on low-dose amlodipine. We will stop this and increase his carvedilol to 12.5 b.i.d. from once daily. Continue hydrochlorothiazide therapy as well. Advised to monitor blood pressures at home with a goal of blood pressure less than 130/80. Advised to keep a log of blood pressures to bring to his next visit. We will bring patient back in 2 weeks for a nurse visit for blood pressure check. Advised on low-salt diet. (2) Ascending aortic aneurysm: Code(s): I71.2 - Thoracic aortic aneurysm, without rupture Category: Medical Qualifiers: Presence of rupture: without rupture Qualified Code(s): I71.21 - Aneurysm of the ascending aorta, without rupture Plan: 03/22/2025-echo study showed a hyperdynamic LV systolic function with an ejection fraction greater than 70%, mild dilation of sinuses of Valsalva at 4.2 cm and mild dilation of the ascending aorta at 4.1 cm. (3) Hyperlipidemia: Code(s): E78.5 - Hyperlipidemia, unspecified Category: Medical Qualifiers: Hyperlipidemia type: unspecified Qualified Code(s): E78.5 - Hyperlipidemia, unspecified Plan: Continue statin therapy with an LDL goal less than 100. Advised on heart healthy diet, regular exercise, med compliance, losing weight, and management of vascular risk factors. Follow up in 1 month. In the interim, patient will call the office with any concerns or change in symptoms. This note was generated using voice recognition software. While every effort has been made to ensure accuracy and proper electrical engineering designer, there may be occasional errors that could affect the content or meaning of the described symptoms. Medications: Changed From carvedilol must administer with a meal/food 12.5 mg PO ONCE To carvedilol must administer with a meal/food 12.5 mg PO BID Coding Level of Care Code Est Pt Level 4 (11823) Complex visit Add On G2211 Diagnoses Essential hypertension I10 Aneurysm of ascending aorta without rupture I71.21 Presence of rupture: without rupture Hyperlipidemia, unspecified hyperlipidemia type E78.5 Hyperlipidemia type: unspecified Time Spent (min) 32 Comment Time spent in reviewing the chart, test results, assessment, counseling and documentation.
--- OUTSIDE RECORDS SUMMARY | 2025-07-19 15:56 | XMS_ITS | Clinical Summary ---
Author Organization [facility] Address [address] [facility] [address] [place] [address] Phone Care Team Providers Care Director Of Student Financial Services Name Role Phone Christi Mata NP Primary Care Provider [phone] Allergies Active Allergy Reactions Criticality Noted Date [...] [employer]EMENT Care Teams Director Of Student Financial Services Relationship Specialty Start Date End Date Christi Mata NP [address] [place] [address] [address] [place] [address] PCP - General 10/22/22 Additional Source Comments The information contained in this document represents components of the legal health record. It is not the complete legal health record.[facility]
== END 2025-07-19 13:55 | disposition home or self-care (01) ==
LOC: HO.HCS 13:23
PROVIDERS: PCP Internal Medicine
DX: I10 Essential (primary) hypertension (principal); I71.21 Aneurysm of the ascending aorta, without rupture; E78.5 Hyperlipidemia, unspecified
CPT/HCPCS: 99214; G2211

== ENCOUNTER 2025-07-24 10:41 | Outpatient (REF) | payer OTHER, SELFPAY ==
[2025-07-24 15:58] LABS: Resp Syncy Virus RNA Qual PCR NEGATIVE (Negative); SARS COV2 PCR INHOUSE NEGATIVE (Negative)
== END 2025-07-24 10:42 | disposition home or self-care (01) ==
LOC: HO.LAB 10:41
PROVIDERS: Physician Assistant Medical; PCP Internal Medicine
DX: R05.9 Cough, unspecified (principal); L29.9 Pruritus, unspecified; R09.89 Other specified symptoms and signs involving the circulatory and respiratory systems; Z87.891 Personal history of nicotine dependence
CPT/HCPCS: 87637

== ENCOUNTER 2025-07-24 10:41 | Outpatient (AMB) | payer OTHER, SELFPAY ==
[2025-07-24 10:56] VITALS: BP 138/72; PULSE 74; TEMP 36.8; O2SAT 97; BMI 29.5
--- NOTE | 2025-07-24 10:56 | AM.OFFWIN_ITS ---
Intake Vital Signs 07/24/25 10:56 Height 5 ft 9 in Weight 200 lb BMI 29.5 BP 138/72 Blood Pressure Location Rt brachial Position Sitting Pulse 74 Pulse Source Pulse Oximeter Temp 98.2 F Temp Source Oral Pulse Oximetry (%) 97 Oxygen Delivery Method Room Air Intake Visit Reasons: EP Cough, Phlegm Intake Note: Patient presents c/o cough, phlegm x4 days. Patient Tobacco Use Status: Former Tobacco user Allergies sulfamethoxazole (From Bactrim) Allergy (Verified 07/24/25 10:59) Mouth sores, Stomach pains trimethoprim (From Bactrim) Allergy (Verified 07/24/25 10:59) Mouth sores, Stomach pains Sulfa (Sulfonamide Antibiotics) Adverse Reaction (Intermediate, Verified 07/24/25 10:59) MOUTH SORES, RASH HPI HPI Comments History of Present Illness Details History - The patient is a 79-year-old male pres enting with a cough and mucus production. - He reports symptoms started last day and consist of a significant amount of liquid and mucus in his upper chest and bronchial area, which worsens at night, causing him to fear going to sleep. - He is coughing up large amounts of yel low phlegm and reports wheezing while sitting. - Associated symptoms include sinus corey estion and difficulty breathing through his nose. - He denies fever or shortness of breath but was concerned about pneumonia. - The patient also has an ongoing issue with pruritus and sores, for which he was prescribed a high dose of prednisone by a processing analyst. - He has not taken the prednisone due to concerns about a possible infection. - He reports experiencing chills or hot flash-like feelings with the itching. - His immunizations are up to date for t he RSV and seasonal influenza shots for this year, but not for COVID. - He has no sick contacts. - He denies fever or chills. - He denies abd pain, n/v/d, CRAMER, sore th roat or ear pain. Physical Exam General: Cooperative, healthy appearing, comfortable and no acute distress Orientation/consciousness: Patient oriented x3 Limitations: No limitations Head: Normal to inspection Ears: Hearing grossly normal bilaterally, external ears normal and TM's normal bilaterally Nose: Normal external nose present, normal nares present, and nasal congestion present. Face and sinus: Sinuses congested, with pressure noted. Mouth: Normal oral and palatal mucosa present and moist mucous membranes noted. Throat: Tonsils normal. Uvula is midline. Posterior oropharynx with erythema and no exudates. Eyes: Appearance normal, both eyes and all related structures Neck: Normal visual inspection, full ROM. No lymphadenopathy noted. Respiratory: Clear to auscultation bilaterally. Normal respiratory effort, able to speak in complete sentences. No respiratory distress, not tachypneic, no tripod positioning and no use of accessory muscles. Wheezing noted. Cardiovascular: Regular rate and rhythm. Normal S1 and S2 Skin: No rashes or lesions noted, but sores present and itching reported. Patient was informed and verbally consented to the use of an ambient scribe for clinic note documentation during this visit [facility] Medical History Generalized pruritus History of osteoporosis Osteopenia of left femoral neck BPH (benign prostatic hyperplasia) Fracture, thoracic vertebra, compression Lumbar degenerative disc disease Essential hypertension Ascending aortic aneurysm Normal colonoscopy Prostate CA Allergic rhinitis Polycythemia Hyperlipidemia Hearing problem Insomnia Hypogonadism male Surgical History Hx of transurethral resection of prostate Hx of cystoscopy History of esophagogastroduodenoscopy (EGD) Hx of appendectomy History of repair of hiatal hernia Hx of hernia repair History of colon resection Hx of nasal septoplasty Hx of colonoscopy Family History Father Alzheimer disease Colon cancer Colon polyps Mother No problems noted. Other Mental health disorder Social History Housing: House Alcohol intake: current Alcohol intake frequency: holidays/special occasions only Patient Tobacco Use Status: Former Tobacco user e-Cigarette/Vaping Use: Never Used Second Hand Smoke Exposure: No Advance Directives Date on File: 03/15/24 service: Yes Current occupational status: employed and retired Current occupational exposures/hazards: No Cognitive needs: No Hearing needs: Yes Vision needs: No Review of Systems Const All systems reviewed & are unremarkable except as noted in HPI and below Physical Exam Vital Signs: Last Vital Signs Temp 98.2 F 07/24/25 10:56 Pulse 74 07/24/25 10:56 BP 138/72 07/24/25 10:56 Pulse Ox 97 07/24/25 10:56 Oxygen Delivery Method Room Air 07/24/25 10:56 BMI result Body Mass Index 29.5 Assessment & Plan Assessment & Plan (1) URI with cough and congestion: Code(s): J06.9 - Acute upper respiratory infection, unspecified Plan Most likely Acute Upper Respiratory Infection vs allergic rhinitis vs sinusitis vs covid vs flu vs RSV plan - A swab for COVID-19, influenza, and RSV will be performed for definitive diagnosis. - Tessalon perles as needed for cough - Flonase and zyrtec D daily - The patient was advised to start his prescribed prednisone, as it will also help with the cough and lung inflammation. - Follow-up will occur via phone call with the swab results. Orders: Orders SARS-CoV2/FLU/RSV Today R09.89 - Other specified symptoms and signs involving the circulatory and respiratory systems Medications: New cetirizine-pseudoephedrine 5-120 mg ER 1 tab PO BID 14 tabs 0RF 7 days fluticasone propionate 50 mcg/actuation administer into each nostril 1 spray intranasal Q12H 16 grams 0RF benzonatate 100 mg PO bid-tid PRN 20 caps 0RF Cough 7 days Coding Level of Care Code Est Pt Level 3 (18470) Diagnoses URI with cough and congestion J06.9
== END 2025-07-24 11:40 | disposition home or self-care (01) ==
PROVIDERS: PCP Internal Medicine; Visit Provider Physician Assistant Medical
DX: J06.9 Acute upper respiratory infection, unspecified (principal)